=== PATIENT | female | born 1965 | race Caucasian/White ===

== ENCOUNTER 2023-05-22 07:50 | Outpatient (OUT) | payer BC, SELFPAY ==
[2023-05-22 08:38] LABS: Basophils Percent Auto 0.6 % (0.2-2.0); Eosinophils Absolute Auto 0.1 10^3/uL (0.0-0.7); Eosinophils Percent Auto 1.9 % (0.9-7.0); Immature Granulocytes Abs Auto 0.01 10^3/uL (0.00-0.03); Immature Granulocytes Pct Auto 0.1 % (0.0-0.5); Lymphocytes Absolute Auto 2.8 10^3/uL (1.2-3.8); Lymphocytes Percent Auto 40.6 % (20.5-60.0); Mean Corpuscular HGB Conc 34.2 g/dL (29.9-35.2); Mean Corpuscular Hemoglobin 30.1 pg (26.7-34.0); Mean Platelet Volume 10.3 fL (9.5-13.5); Monocytes Absolute Auto 0.5 10^3/uL (0.3-0.8); Monocytes Percent Auto 7.2 % (1.7-12.0); Neutrophils Absolute Auto 3.4 10^3/uL (1.4-6.5); Neutrophils Percent Auto 49.6 % (43.0-75.0); Platelet Count 277 10^3/uL (150-450); Red Blood Count 4.32 10^6/uL (4.20-5.40); Red Cell Distribution Width 12.8 % (11.0-15.0); White Blood Count 6.8 10^3/uL (4.0-11.0)
[2023-05-22 09:47] LABS: Estimated Average Glucose 114 mg/dL; Glycohemoglobin A1C 5.6 % (4.5-6.2)
[2023-05-22 09:48] LABS: Alanine Aminotransferase 27 U/L (14-59); Albumin Globulin Ratio 1.1; Albumin Level 3.8 g/dL (3.4-5.0); Alkaline Phosphatase 57 U/L (46-116); Anion Gap 12.3; Aspartate Amino Transferase 14 U/L (15-37); BUN Creatinine Ratio 16.1; Bilirubin Total 0.6 mg/dL (0.2-1.0); Chloride 107 mmol/L (98-107); Cholesterol 195 mg/dL (<=200); Estimated GFR (African America 54 (>=60); Estimated GFR (Non-African Ame 45 (>=60); Globulin 3.6 g/dL; Glucose 114 mg/dL (74-106); HDL Cholesterol 39 mg/dL (40-60); Potassium 4.3 mmol/L (3.5-5.1); Sodium 142 mmol/L (136-145); Total Protein 7.4 g/dL (6.4-8.2); Triglycerides 281 mg/dL (<=150); VLDL CHOLESTEROL 56.2 mg/dL
== END 2023-05-22 07:51 | disposition home or self-care (01) ==
PROVIDERS: PCP Family Medicine; Visit Provider Family Medicine
DX: E78.1 Pure hyperglyceridemia (principal); R73.9 Hyperglycemia, unspecified; Z79.899 Other long term (current) 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
CPT/HCPCS: 36415; 80053; 80061; 83036; 85025

== ENCOUNTER 2023-07-27 14:53 | Outpatient (OUT) | payer BC, SELFPAY ==
[2023-07-27 16:31] LABS: Alanine Aminotransferase 26 U/L (14-59); Albumin Globulin Ratio 1.2; Albumin Level 3.8 g/dL (3.4-5.0); Alkaline Phosphatase 62 U/L (46-116); Anion Gap 12.3; Aspartate Amino Transferase 7 U/L (15-37); BUN Creatinine Ratio 15.6; Bilirubin Total 0.4 mg/dL (0.2-1.0); Calcium 8.4 mg/dL (8.5-10.1); Carbon Dioxide 27.9 mmol/L (21.0-32.0); Chloride 106 mmol/L (98-107); Estimated GFR (African America 55 (>=60); Estimated GFR (Non-African Ame 46 (>=60); Globulin 3.3 g/dL; Glucose 81 mg/dL (74-106); Potassium 4.2 mmol/L (3.5-5.1); Sodium 142 mmol/L (136-145); Total Protein 7.1 g/dL (6.4-8.2)
== END 2023-07-27 14:54 | disposition home or self-care (01) ==
LOC: LAB 14:53
PROVIDERS: PCP Family Medicine; Visit Provider Family Medicine
DX: E78.1 Pure hyperglyceridemia (principal); N18.9 Chronic kidney disease, unspecified; Z79.899 Other long term (current) 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
CPT/HCPCS: 36415; 80053

== ENCOUNTER 2023-09-10 07:53 | Outpatient (OUT) | payer BC, SELFPAY ==
[2023-09-10 08:09] LABS: Basophils Absolute Auto 0.1 10^3/uL (0.0-0.1); Basophils Percent Auto 0.8 % (0.2-2.0); Hematocrit 37.5 % (36.0-48.0); Hemoglobin 12.6 g/dL (12.0-16.0); Immature Granulocytes Abs Auto 0.01 10^3/uL (0.00-0.03); Immature Granulocytes Pct Auto 0.1 % (0.0-0.5); Lymphocytes Absolute Auto 2.7 10^3/uL (1.2-3.8); Lymphocytes Percent Auto 36.1 % (20.5-60.0); Mean Corpuscular HGB Conc 33.6 g/dL (29.9-35.2); Mean Corpuscular Hemoglobin 30.4 pg (26.7-34.0); Mean Corpuscular Volume 90.6 fL (81.0-99.0); Mean Platelet Volume 10.5 fL (9.5-13.5); Monocytes Absolute Auto 0.5 10^3/uL (0.3-0.8); Monocytes Percent Auto 7.1 % (1.7-12.0); Neutrophils Absolute Auto 4.2 10^3/uL (1.4-6.5); Neutrophils Percent Auto 55.9 % (43.0-75.0); Platelet Count 256 10^3/uL (150-450); Red Blood Count 4.14 10^6/uL (4.20-5.40); Red Cell Distribution Width 12.9 % (11.0-15.0); White Blood Count 7.5 10^3/uL (4.0-11.0)
[2023-09-10 08:24] LABS: Alanine Aminotransferase 66 U/L (14-59); Albumin Globulin Ratio 1.2; Albumin Level 3.8 g/dL (3.4-5.0); Alkaline Phosphatase 64 U/L (46-116); Anion Gap 11.7; Aspartate Amino Transferase 38 U/L (15-37); BUN Creatinine Ratio 15.2; Bilirubin Total 0.5 mg/dL (0.2-1.0); Calcium 8.6 mg/dL (8.5-10.1); Carbon Dioxide 29.9 mmol/L (21.0-32.0); Chloride 105 mmol/L (98-107); Chol HDL Ratio 3.3; Cholesterol 144 mg/dL (<=200); Estimated GFR (African America 50 (>=60); Estimated GFR (Non-African Ame 42 (>=60); Globulin 3.3 g/dL; Glucose 100 mg/dL (74-106); HDL Cholesterol 43 mg/dL (40-60); Potassium 4.6 mmol/L (3.5-5.1); Sodium 142 mmol/L (136-145); Total Protein 7.1 g/dL (6.4-8.2); Triglycerides 185 mg/dL (<=150)
[2023-09-10 09:18] LABS: Estimated Average Glucose 117 mg/dL; Glycohemoglobin A1C 5.7 % (4.5-6.2)
== END 2023-09-10 07:54 | disposition home or self-care (01) ==
LOC: LAB 07:54
PROVIDERS: PCP Family Medicine; Visit Provider Family Medicine
DX: E78.1 Pure hyperglyceridemia (principal); Z79.899 Other long term (current) 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; R73.9 Hyperglycemia, unspecified
CPT/HCPCS: 36415; 80053; 80061; 83036; 85025

== ENCOUNTER 2023-09-18 09:33 | Outpatient (OUT) | payer BC, SELFPAY ==
--- NOTE | 2023-09-18 | US_ITS ---
The [address] [address] Patient Name: RODRIGO LIRA MRN: [id number] date: 1965 Sex: F Assigned Patient Location: US Current Patient Location: Accession/Order Number: [id number] Exam Date: 09/18/2023 10:00 Report Date: 09/18/2023 10:58 At the request of: ANAND GARCIA Procedure: US right upper quadrant EXAM: US right upper quadrant EXAM DATE: 09/18/2023 8:00 AM MST COMPARISON: None available. INDICATION: Elevated labs. Reflux. TECHNIQUE: Limited ultrasound of the right upper quadrant of abdomen was performed. Images were reviewed on a separate workstation. FINDINGS: Liver parenchyma is mildly echogenic. No focal intraparenchymal abnormality detected. Gallbladder is normally distended. No intraluminal echogenic abnormality seen. No gallbladder wall thickening or pericholecystic fluid noted. Gallbladder wall measures 2 mm. Sonographic Fowler's sign is absent. No intrahepatic or extrahepatic biliary ductal dilatation noted. CBD measures 3.6 mm. Portal vein is patent with hepatopetal flow. Pancreas is partially obscured by bowel gas; visualized pancreatic parenchyma is homogeneous. Right kidney measures 8 x 4 x 5.4 cm. No hydronephrosis or nephrolithiasis noted. No free fluid noted in the right upper abdomen. US/US right upper quadrant IMPRESSION: 1. Mild fatty infiltration of the liver. 2. No gallstones or bile duct dilation. Sonographic Fowler's sign is absent. 3. Right kidney without hydronephrosis. 4. Subvisualized pancreas. Electronically authenticated by: SHYANNE VILLASENOR Date: 09/18/2023 10:58
[2023-09-18 10:20] LABS: Alanine Aminotransferase 40 U/L (14-59); Albumin Globulin Ratio 1.1; Albumin Level 3.9 g/dL (3.4-5.0); Alkaline Phosphatase 64 U/L (46-116); Aspartate Amino Transferase 21 U/L (15-37); Bilirubin Direct 0.1 mg/dL (0.0-0.2); Bilirubin Total 0.7 mg/dL (0.2-1.0); Globulin 3.6 g/dL; Total Protein 7.5 g/dL (6.4-8.2)
[2023-09-19 08:09] LABS: HBsAg Screen Negative (Negative); HCV Ab Non Reactive (Non Reactive); Hep A Ab, IgM Negative (Negative); Hep B Core Ab, IgM Negative (Negative)
== END 2023-09-18 09:34 | disposition home or self-care (01) ==
PROVIDERS: PCP Family Medicine; Visit Provider Family Medicine
DX: R94.5 Abnormal results of liver function studies (principal)
CPT/HCPCS: 36415; 76705; 80074; 80076

== ENCOUNTER 2023-12-04 07:56 | Outpatient (OUT) | payer BC, SELFPAY ==
--- OUTSIDE RECORDS SUMMARY | 2023-12-04 08:00 | XMS_ITS | CCD ---
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 Name Role Phone Anand Garcia Unavailable Dario Green II Unavailable Marianne Plummer Unavailable DO Anand Garcia Primary Care Provider DO Anand Garcia Attending Provider Anand Garcia DO Primary Care Provider [phone] Anand Garcia DO Primary Care Provider ANAID MCCAULEY Referring Unavailable ANAND GARCIA Primary Care Unavailable ANAID MCCAULEY Attending Unavailable ANAID MCCAULEY Referring Unavailable ANAND GARCIA Primary Care Unavailable ANAID MCCAULEY Attending Unavailable CRESENCIO ROBLES Referring Unavailable AANND GARCIA Primary Care Unavailable ANAID MCCAULEY Attending Unavailable ANAND GARCIA Primary Care Unavailable RADHA, DR MICHEL Consulting Unavailable GIRYARED, DR MICHEL Primary Care Unavailable GIRYARED, DR MICHEL Admitting Unavailable GIRYARED, DR MICHEL Attending Unavailable ZIEBER, DR FELISA Drake Consulting Unavailable RADHA, DR MICHEL Primary Care Unavailable PENSIERO, DR YANNICK Bravo Attending Unava ilable PENSIERO, DR YANNICK Bravo Consulting Unava ilable PENSIERO, DR YANNICK Bravo Admitting Unava ilable PENSIERO, DR YANNICK Bravo Admitting Unava ilable PENSIERO, DR YANNICK Bravo Attending Unava ilable RADHA, DR MICHEL Primary Care Unavailable VIKA MCKAY Consulting Unavailable PENSIERO, DR YANNICK Bravo Attending Unava ilable PENSIERO, DR YANNICK Bravo Consulting Unava ilable PENSIERO, DR YANNICK Bravo Admitting Unava ilable RADHA, DR MICHEL Primary Care Unavailable AGUBOSIM, ROMULO Consulting Unavailable MARIA DEL CARMEN, ALDAIR Consulting Unavailable GIRVIN, DR MICHEL Consulting Unavailable GIRVIN, DR MICHEL Primary Care Unavailable GIRVIN, DR MICHEL Admitting Unavailable GIRVIN, DR MICHEL Attending Unavailable GIRVIN, DR MICHEL Primary Care Unavailable YEMI, MARIANNE Admitting Unavailable YEMI, MARIANNE Attending Unavailable YEMI, MARIANNE Consulting Unavailable GIRVIN, DR MICHEL Primary Care Unavailable GIRVIN, DR MICHEL Consulting Unavailable GIRVIN, DR MICHEL Admitting Unavailable GIRVIN, DR MICHEL Attending Unavailable WEST, DR ANAND Ohara Consulting Unavailable GIRVIN, DR MICHEL Primary Care Unavailable YMEI, MARIANNE Admitting Unavailable YEMI, MARIANNE Attending Unavailable YEMI, MARIANNE Consulting Unavailable GIRVIN, DR MICHEL Primary Care Unavailable GIRVIN, DR MICHEL Admitting Unavailable GIRVIN, DR MICHEL Attending Unavailable GIRVIN, DR MICHEL Consulting Unavailable GIRVIN, DR MICHEL Consulting Unavailable GIRVIN, DR MICHEL Primary Care Unavailable GIRVIN, DR MICHEL Admitting Unavailable GIRVIN, DR MICHEL Attending Unavailable DO Anand Garcia Primary Care Provider DO Anand Garcia Attending Provider Anand Garcia Attending Unavailable Radha, Anand Primary Care Unavailable Radha, Anand Admitting Unavailable Anand Garcia DO Primary Care Provider CRESENCIO ROBLES Attending Unavailable ANAND GARCIA Primary Care Unavailable CRESENCIO ROBLES Attending Unavailable ANAND GARCIA Primary Care Unavailable Allergies Allergy Classification Reported Allergen(s) Allergy Type Date of Onset Reaction(s) Facility (15 sources) NSAIDs Propensity to adverse reactions kidney Dz [employer] Other (16 sources) Sulfamethoxazole / Trimethoprim; Translations: [Bactrim] Drug Allergy 04-10-20 19 kidney Dz [facility] [place] [facility] (11 sources) topiramate; Translations: [TOPIRAMATE] Drug Allergy 05-09-20 18 Mental Status Change [facility] (1 source) NSAIDs Drug allergy (disorder) 04-10-20 19 [facility] Medications Current Medications Medication Drug Class(es) Dates Sig (Normalized) Sig (Original) acetaminophen 325 mg / HYDROcodone bitartrate 5 mg oral tablet (11 sources) Opioid Agonist Start: 09-13-2023 HYDROcodone-Acetam inophen 5-325 MG 1 tablet Orally q6-8 hrs prn Dx: M50.30 for 7 days Sep, Active Start: 12-29-2022 HYDROcodone-Ac etaminophen 5-325 MG 1 tablet Orally q6-8 hrs prn Dx: M50.30 Dec, Active Start: 08-26-2022 HYDROcodone-Ac etaminophen 5-325 MG 1 tablet Orally q6-8 hrs prn Dx: M50.30 for 7 days Aug, Active Start: 07-29-2022 HYDROcodone-Ac etaminophen 5-325 MG 1 tablet Orally q6-8 hrs prn Dx: M50.30 for 7 days Jul, Active Start: 05-21-2020 [place] 5-325 MG 1 tablet Orally q6-8 hrs as needed DX: M50.30 for 7 days May, Active baclofen 10 mg oral tablet (2 sources) gamma-Aminobutyric Acid-ergic Agonist Start: 09-28-2022 End: 10-28-2022 take 1 tablet by mouth twice daily as needed baclofen (LIORESAL) 10 mg tablet Indications: Cervicalgia , History of fusion of cervical spine , Cervical spondylosis Take 1 tablet by mouth twice daily as needed. 40 tablet 0 09/28/2022 10/28/2022 Active Comment on above: Take 1 tablet by lillie twice daily as needed. dihydroergotamine mesylate 0.725 MG/ACTUAT Metered Dose Nasal [place] [Trudhesa] (2 sources) Trudhesa 0.725 MG/ACT 1 spray in each nostril may repeat dose after 1 hour no more than 3 doses per week as needed Nasally Once a day Active Magnesium (4 sources) take 5 tablets by mouth once daily Magnesium 100 MG 5 tablets (500 MG) Orally qd Active take 1 tablet by mouth once haylee y Magnesium 500 MG 1 tablet with a meal Orally Once a day Active Multivitamin preparation (15 sources) take 1 tablet by mouth once daily Multivitamin - 1 tablet Orally Once a day Active ondansetron 4 mg oral tablet (20 sources) Serotonin-3 Receptor Antagonist Start: 5 Zofran 4 mg 1 tablet Orally q8-12 hrs prn prn Jun, Active Start: 07-01-2015 Zofran 4 mg 1 tablet Orally q8-12 hrs prn Jun, Active ONDANSETRON HCL (ZOFRAN ORAL) Take 4 mg by mouth as needed. 0 Active Comment on above: Take 4 mg by mouth a s needed. tiZANidine 4 mg oral capsule (2 sources) Central alpha-2 Adrenergic Agonist Start: 11-16-2022 End: 12-16-2022 take 1 capsule by mouth every twelve hours as needed tiZANidine HCl (ZANAFLEX) 4 mg capsule Take 1 capsule by mouth twice daily as needed. 40 capsule 0 11/16/2022 12/16/2022 Active Comment on above: Take 1 capsule by mo uth twice daily as needed. Vitamin C 1000 MG (6 sources) Vitamin C 1000 M G as directed Once a day Not-Taking Vitamin C 1000 M G as directed Once a day Active Vitamin E 400 UNIT (15 sources) take 1 capsule by mo uth once daily Vitamin E 400 UNIT 1 capsule Orally Once a day Not-Taking take 1 capsule by mouth once surendra ly Vitamin E 400 UNIT 1 capsule Orally Once a day Active Completed/Discontinued Medications Medication Drug Class(es) Dates Sig (Normalized) Sig (Original) ascorbic acid 1000 mg oral tablet (14 sources) Vitamin C take 1 tablet by lillie th once daily Ascorbic Acid 1,000 mg tablet Take 1,000 mg by mouth once daily. 0 Active Vitamin C Active Comment on above: Take 1,000 mg by lillie th once daily. CYANOCOBALAMIN, VITAMIN B-12, (VITAMIN B-12 ORAL) (9 sources) CYANOCOBALAMIN, VITAMIN B-12, (VITAMIN B-12 ORAL) Take by mouth. 0 Active Comment on above: Take by mouth. dihydroergotamine mesylate 0.5 mg/actuat metered dose nasal spray (9 sources) Ergotamine Derivative Dihydroergotamine Mesylate 4 MG/ML as directed Nasally ONLY NEEDED PRN Not-Taking dihydroergotamine (TRUDHESA) 0.725 mg/pump act. (4 mg/mL) nasal spray (2 sources) Start: 2022 dihydroergotamine (TRUDHESA) 0.725 mg/pump act. (4 mg/mL) nasal spray Prime with 4 pumps before use. 1 spray in each nostril at migraine onset. May repeat once in 1 hour if needed. No more than 2 doses/24 hours and 3 doses/week. A complete dose is 2 sprays: 1 spray in each nostril. 8 mL 07/21/2023 Active Comment on above: Prime with 4 pumps b efore use. 1 spray in each nostril at migraine onset. May repeat once in 1 hour if needed. No more than 2 doses/24 hours and 3 doses/week. A complete dose is 2 sprays: 1 spray in each nostril. 1 ml erenumab-aooe 140 mg/ml auto-injector (20 sources) Start: 2022 inject 1 mL by subcutaneous injection every month erenumab-aooe 140 mg/mL subcutaneous auto-injector (AIMOVIG) Inject 1 mL under the skin once every month. 1 mL 07/21/2023 Active Start: 07-18-2021 End: 07-24-2022 inject 140 mg by subcutaneous injection every month erenumab-aooe 140 mg/mL subcutaneous auto-injector (AIMOVIG) INJECT 140 MG SUBCUTANEOUSLY ONCE EVERY MONTH. 1 mL 07/24/2022 Active inject 1 mL by subcu taneous injection every month Aimovig 70 MG/ML 1 ml Subcutaneous ONCE A MONTH on the of every month Active Comment on above: INJECT 140 MG SUBCUT ANEOUSLY ONCE EVERY MONTH. Inject 1 mL under th e skin once every month. Imitrex 100 mcg/spray (7 sources) Imitrex 100 mcg/ spray one spray nasally at onset of headache prn Not-Taking Imitrex 100 mcg/ spray one spray nasally at onset of headache prn Active Imitrex 100 mcg/ spray one spray nasally at onset of headache Not-Taking Imitrex 100 mcg/ spray one spray nasally at onset of headache Active Magnesium Hydroxide (2 sources) take 400 mg by mouth once daily magnesium hydroxide (MAGNESIA ORAL) Take 400 mg by mouth once daily. 0 Active Comment on above: Take 400 mg by mouth once daily. 24 hr propranolol hydrochloride 80 mg extended release oral capsule (20 sources) beta-Adrenergic Nicky Start: 2 End: 3 take 1 capsule by mouth once daily propranolol ER (INDERAL LA) 80 mg 24 hr capsule Take 1 capsule by mouth once daily. 90 capsule 3 11/24/2022 Active take 1 tablet by lillie every twenty-four hours Propranolol HCl 80 MG 1 Tablet Orally Once a day Active Comment on above: Take 1 capsule by mo [facility] once daily. rizatriptan 10 mg oral tablet (20 sources) Serotonin-1b and Serotonin-1d Receptor Agonist Start: 09-23-20 20 rizatriptan (MAXALT) 10 mg tablet 1 tab at earliest sign of migraine. May repeat once in 2 hours if needed. Give max allowed per insurance. 27 tablet 3 09/23/2020 Active Comment on above: 1 tab at earliest si gn of migraine. May repeat once in 2 hours if needed. Give max allowed per insurance. rosuvastatin calcium 5 mg oral tablet (5 sources) HMG-CoA Reductase Inhibitor Start: 06-09-20 take 1 tablet by mouth once rosuvastatin (CRESTOR) 5 mg tablet Take 1 tablet by mouth every afternoon. 0 07/06/2023 Active Comment on above: Take 1 tablet by lillie every afternoon. 72 hr scopolamine 0.0139 mg/hr transdermal system (9 sources) Anticholinergic Start: 05-31-20 scopolamine (TRANSDERM-SCOP) 1.5 mg (1 mg over 3 days) Apply 1 Patch as directed every 72 hours. APPLY 1 DISC BEHIND THE EAR AT LEAST 4 HOURS PRIOR TO EXPOSURE AND EVERY 3 DAYS NEEDED. 12 Patch 11 05/31/2017 Active Comment on above: Apply 1 Patch as dir ected every 72 hours. APPLY 1 DISC BEHIND THE EAR AT LEAST 4 HOURS PRIOR TO EXPOSURE AND EVERY 3 DAYS NEEDED. SUMAtriptan 20 mg/actuat nasal spray (7 sources) Serotonin-1b and Serotonin-1d Receptor Agonist Start: 07-24-20 SUMAtriptan (IMITREX) 20 mg/actuation nasal spray 1 spray in 1 nostril at migraine onset. May repeat once in 2 hours if needed. 8 Each 07/24/2022 Active Comment on above: 1 spray in 1 nostril at migraine onset. May repeat once in 2 hours if needed. triamcinolone acetonide 40 mg/ml injectable suspension (14 sources) Corticosteroid Start: 02-07-20 Kenalog-40 Jan, 40 mg Start: 02-06-2022 Kenalog -40 mg Jan, 40 mg zinc gluconate 50 mg oral tablet (5 sources) take 1 tablet by mouth every twenty-four hours Zinc 50 MG 1 tablet Orally Once a day Not-Taking ZOLMitriptan 5 mg/actuat nasal spray (15 sources) Serotonin-1b and Serotonin-1d Receptor Agonist Start: 10-01-20 21 ZOLMitriptan (ZOMIG) 5 mg nasal spray 1 spray in 1 nostril at headache onset. May repeat once in 2 hours if needed. Give max sprays allowed per insurance. 18 Each 3 10/01/2021 Active take 2.5 mg nasal ro joseph once daily as needed Zomig 2.5 MG as directed Nasally Once a day PRN prn Not-Taking Comment on above: 1 spray in 1 nostril at headache onset. May repeat once in 2 hours if needed. Give max sprays allowed per insurance. Problems Active Problems Problem Classification Problem Date Documented Date Episodic/Chronic Acquired foot deformities (1 source) Hallux rigidus, right foot; Translations: [HALLUX RIGIDUS RIGHT FOOT] Onset: 2 Chronic Chronic kidney disease (20 sources) Chronic kidney disease; Translations: [Chronic kidney disease, unspecified] Onset: 2 Resolved: 2 Chronic Diabetes mellitus without complication (5 sources) Hyperglycemia, unspecified; Translations: [HYPERGLYCEMIA UNSPECIFIED] Onset: 2 Resolved: 2 Episodic Disorders of lipid metabolism (20 sources) Hypertriglyceridemia; Translations: [Pure hyperglyceridemia] Onset: 2 Resolved: 2 Chronic Essential hypertension (15 sources) Elevated blood pressure; Translations: [Essential (primary) hypertension] Chronic Fluid and electrolyte disorders (1 source) Hyperosmolality and hypernatremia Episodic Headache; including migraine (20 sources) Migraine; Translations: [Migraine, unspecified, not intractable, without status migrainosus] Onset: 5 Resolved: 2 Chronic Hypertension with complications and secondary hypertension (20 sources) Chronic kidney disease due to hypertension; Translations: [Hypertensive chronic kidney disease with stage 1 through stage 4 chronic kidney disease, or unspecified chronic kidney disease] Onset: 2 Resolved: 2 Chronic Nausea and vomiting (15 sources) Nausea; Translations: [Nausea] Episodic Nephritis; nephrosis; renal sclerosis (18 sources) Nephrosclerosis; 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)] Onset: 2 Resolved: 2 Chronic Osteoarthritis (15 sources) Osteoarthritis of right hip joint; Translations: [Unilateral primary osteoarthritis, right hip] Onset: 2 Resolved: 2 Chronic Other aftercare (9 sources) Other assistant terminal manager (current) 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; Translations: [OTH JAIL CURRENT DRUG THERAPY] Onset: 2 Resolved: 2 Episodic Other connective tissue disease (2 sources) History of cervical spine fusion; Translations: [Arthrodesis status] Episodic Other diseases of kidney and ureters (15 sources) Secondary hyperparathyroidism; Translations: [Secondary hyperparathyroidism of renal origin] Chronic Other diseases of kidney and ureters (3 sources) Secondary hyperparathyroidism of renal origin; Translations: [SEC HYPERPARATHYROIDISM RENAL ORIGN] Onset: 2 Resolved: 2 Chronic Other nutritional; endocrine; and metabolic disorders (11 sources) Tracy hump; 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] Chronic Other nutritional; endocrine; and metabolic disorders (2 sources) Localized adiposity; Translations: [LOCALIZED ADIPOSITY] Onset: 2 Resolved: 2 Chronic Other nutritional; endocrine; and metabolic disorders (6 sources) Hypomagnesemia; Translations: [Hypomagnesemia] Chronic Other nutritional; endocrine; and metabolic disorders (1 source) Hypomagnesemia Chronic Other nutritional; endocrine; and metabolic disorders (8 sources) Abnormal weight gain; Translations: [ABNORMAL WEIGHT GAIN] Onset: 2 Resolved: 2 Episodic Other screening for suspected conditions (not mental disorders or infectious disease) (18 sources) Screening status; Translations: [Encounter for screening for malignant neoplasm of colon] Onset: 2 Resolved: 2 Episodic Spondylosis; intervertebral disc disorders; other back problems (20 sources) Cervical spondylosis; Translations: [Spondylosis without myelopathy or radiculopathy, cervical region] Onset: 2 Resolved: 2 Chronic Unclassified (1 source) CHRN KIDNEY DISEASE STG 3 UNSP; Translations: [CHRN KIDNEY DISEASE STG 3 UNSP] Onset: 3 Unclassified (1 source) CONTACT W/AND (SUSP) EXPOS COVID-19; Translations: [CONTACT W/AND (SUSP) EXPOS COVID-19] Onset: 2 Unclassified (1 source) Encounter for screening mammogram for malignant neoplasm of breast; Translations: [Encounter for screening mammogram for malignant neoplasm of breast] Onset: 3 Past or Other Problems Problem Classification Problem Date Documented Date Episodic/Chronic Acquired foot deformities (4 sources) Other deformities of toe(s) (acquired), right foot; Translations: [OTHER DEFORMITIES TOES ACQ RT FOOT] Onset: 01-28-2022 Episodic Chronic kidney disease (4 sources) Chronic kidney disease; Translations: [Chronic kidney disease, stage 3 unspecified] Onset: 02-12-2022 Resolved: 02-12-2022 Deficiency and other anemia (1 source) Anemia, unspecified Onset: 05-25-2022 Resolved: 05-25-2022 Episodic Headache; including migraine (18 sources) Chronic daily headache; Translations: [Chronic daily headache] Onset: 10-11-2015 10-11-2015 Episodic Other bone disease and musculoskeletal deformities (1 source) Disorder of bone, unspecified; Translations: [DISORDER OF BONE UNSPECIFIED] Onset: 02-05-2022 Episodic Other connective tissue disease (1 source) Pain in right foot Onset: 01-19-2022 Resolved: 01-19-2022 Episodic Other connective tissue disease (1 source) Trochanteric bursitis, right hip Onset: 02-06-2022 Resolved: 02-06-2022 Episodic Other connective tissue disease (9 sources) Chronic musculoskeletal pain; Translations: [Myalgia, other site] Onset: 07-03-2016 07-03-2016 Episodic Other connective tissue disease (2 sources) Arthrodesis status; Translations: [History of fusion of cervical spine] Onset: 02-05-2022 Episodic Other non-traumatic joint disorders (1 source) Pain in unspecified hip Onset: 01-19-2022 Resolved: 01-19-2022 Episodic Other non-traumatic joint disorders (5 sources) Pain in right hip; Translations: [PAIN IN RIGHT HIP] Onset: 01-20-2022 Resolved: 02-06-2022 Episodic Other non-traumatic joint disorders (1 source) Osteophyte, right foot; Translations: [OSTEOPHYTE RIGHT FOOT] Onset: 01-19-2022 Episodic Other skin disorders (1 source) Corns and callosities; Translations: [CORNS AND CALLOSITIES] Onset: 02-05-2022 Episodic Residual codes; unclassified (1 source) Acquired absence of both cervix and uterus; Translations: [ACQUIRED ABSENCE BOTH CERVIX AND UTERUS] Onset: 02-05-2022 Episodic Spondylosis; intervertebral disc disorders; other back problems (20 sources) Cervico-occipital neuralgia; Translations: [Occipital neuralgia] Onset: 10-11-2015 Episodic Results Test Name Value Interpretation Reference Range Facility [facility] 11-26-2023 [facility] Office Visit ([facility]) MYRTLE JONES ([id number]) 1965 F Date Time Provider Department 11/26/23 2:30 PM CRESENCIO ROBLES AKELAYNE During your visit today, we recorded the following information about you: Pulse Blood pressure Weight 65/minute 147/99 80.3 kg Cresencio Robles DO 11/26/2023 3:28 PM Signed [facility] - Follow-up Visit ASSESSMENT: 58 year old female with history significant for HTN, migraine with aura, migraine without aura, chronic neck pain s/p fusion x 2, chronic musculoskeletal pain, and chronic daily headache consistent with chronic migraine with additional cervical musculoskeletal and occipital neuralgia contributors at initial visits. She improved significantly on Aimovig going from 25+ days/month of headache down to about 3 milder migraines/month with less severity. However, since August migraines have evolved back to chronic migraine and Aimovig seems to have worn off. She has been having another migrainous flares since yesterday. PLAN: (Please see typed patient instructions for detailed instructions) ---> Acute Treatment: -Toradol shot today for current flare. -Ubrelvy trial. We will request a precertification for a Calcitonin Gene-Related Peptide Receptor Antagonist (GEPANT) Ubrogepant for the rescue treatment of episodic migraine. This patient meets ICHD-3 criteria for treatment of migraine with a small molecule CGRP antagonist GEPANT. The FDA has approved GEPANTS for the treatment of migraine. Specifically, the patient has 14 headaches per month, lasting 4 or more hours/day associated with photophobia, phonophobia, nausea, vomiting for three or more months. Medication overuse headache has been ruled out.Patient will not use with another GEPANT. The patient has tried and failed the following : The following preventative medications have been tried without benefit: Anti-Convulsant Topiramate (Topamax, Trokendi XL, Qudexy) Anti-Depressant and Antipsychotic Amitriptyline (Elavil) Duloxetine (Cymbalta) Nortriptyline (Pamelor, Aventyl) Blood Pressure Propranolol (Inderal) Timolol MABs Erenumab (Aimovig) Botulinum Toxin Onabotulimum Toxin A (Botox) The following abortive medications have been tried but require high frequency use which can lead to Medication Overuse Headache: Analgesic Butalbital/acetaminoph en/caffeine (Fioricet) Hydrocodone/Acetaminop hen (Vicodin, [place]) Anti-Migraine Dihydroergotamine (DHE-45, Migranal) Rizatriptan (Maxalt) Sumatriptan (Imitrex, Sumavel) Zolmitriptan (Zomig) Over the Counter Medications Acetaminophen (Tylenol) Acetaminophen/Aspirin/ Caffeine (Excedrin, Goody?s) Ibuprofen (Advil, Motrin) ---> Preventive Treatment: -Change Aimovig to Qulipta trial. Also discussed other CGRP mAbs alternatives. -Continue Propranolol 80 mg ER daily (BP and migraines). ---> Follow-up: 4 months. We will request a precertification for a Calcitonin Gene-Related Peptide Receptor Antagonist (GEPANT) Atogepant for the prevention of chronic migraine . This patient meets ICHD-3 criteria for treatment of migraine with a small molecule CGRP antagonist GEPANT. The FDA has approved GEPANTS for the treatment of migraine. Specifically, the patient has 25 headaches per month, lasting 4 or more hours/day associated with photophobia, phonophobia, nausea, vomiting for three or more months. Medication overuse headache has been ruled out. Patient will not use with another GEPANT. The patient has tried and failed the following : The following preventative medications have been tried without benefit: Anti-Convulsant Topiramate (Topamax, Trokendi XL, Qudexy) Anti-Depressant and Antipsychotic Amitriptyline (Elavil) Duloxetine (Cymbalta) Nortriptyline (Pamelor, Aventyl) Blood Pressure Propranolol (Inderal) Timolol MABs Erenumab (Aimovig) Botulinum Toxin Onabotulimum Toxin A (Botox) The following abortive medications have been tried but require high frequency use which can lead to Medication Overuse Headache: Analgesic Butalbital/acetaminoph en/caffeine (Fioricet) Hydrocodone/Acetaminop hen ([place]in, [place]) Anti-Migraine Dihydroergotamine (DHE-45, Migranal) Rizatriptan (Maxalt) Sumatriptan (Imitrex, Sumavel) Zolmitriptan (Zomig) Over the Counter Medications Acetaminophen (Tylenol) Acetaminophen/Aspirin/ Caffeine (Excedrin, Goody?s) Ibuprofen (Advil, Motrin) --------- Last visit: 07/21/23 Interval Headache Hx: Was doing well with 3-4 per month. However, since August migraines and headaches have been worse and most days. New Labs/Imaging: n/a HEADACHE SCORES: Headache Questions 07/17/2022 07/14/2023 11/22/2023 ER visits since last office visit: 0 0 0 Hospital stays since last office visit 0 0 0 Limited ADLs in the (more content not included)... [facility] ([facility]) SORAYAMYRTLE ([id number]) 1965 F Date Time Provider Department 10/13/23 SALMA CALLEJAS [facility] During your visit today, we recorded the following information about you: Salma Callejas RN 10/13/2023 1:37 PM Signed [facility] received prescription(s) for Aimovig 140MG/ML auto-injectors. Benefits investigation was conducted, indicating that a prior authorization is required. PA was initiated and pending review through [employer]. All pertinent clinical information was submitted to insurance. CMM Palafox: [id number] Ordering Provider: Cresencio Robles DO Murtaugh, Alisha, AGUSTO [facility] P: , F: Salma Callejas RN 10/20/2023 1:25 PM Signed Ambulatory Pharmacy Prior Authorization Note Provider Intervention Required?: No- Pharmacy completed on your behalf. Rx Plan: Other: bcbs Drug: Aimovig 140MG/ML auto-injectors Cover My Meds Palafox: [id number] Determination: Approved Prior Authorization/Case #: [id number] Prior Authorization Expiration: 10/16/2024 Time to PA Submission in CMM: 15 min Time to PA Determination in CMM: Same day Additional Information: PLEASE NOTE: Pt will need follow up office visit to review/document efficacy and tolerability of treatment before prior auth expiration. Please ensure a future follow up appt is scheduled with your patient. This will ensure no interruption in patient's ability to obtain medication refills. Prescriptions will now be processed through [facility] for determination of next steps. For questions relating to this submission, please contact [facility] at [phone] Allergies As of Date: 10/13/2023 Noted Allergy Reaction TOPAMAX (TOPIRAMATE) 05/09/2018 1 - Mental Status Change Date Reviewed: 07/21/2023 Reviewed by: Betsy Bang Ma - Fully Assessed Reason for Visit: Insurance Authorization [[id number]] Cmt: Aimovig 140MG/ML auto-injectors Prescriptions as of 10/20/2023 - rosuvastatin (CRESTOR) 5 mg tablet Take 1 tablet by mouth every afternoon. - magnesium hydroxide (MAGNESIA ORAL) Take 400 mg by mouth once daily. - erenumab-aooe 140 mg/mL subcutaneous auto-injector (AIMOVIG) Inject 1 mL under the skin once every month. - dihydroergotamine (TRUDHESA) 0.725 mg/pump act. (4 mg/mL) nasal spray Prime with 4 pumps before use. 1 spray in each nostril at migraine onset. May repeat once in 1 hour if needed. No more than 2 doses/24 hours and 3 doses/week. A complete dose is 2 sprays: 1 spray in each nostril. - propranolol ER (INDERAL LA) 80 mg 24 hr capsule Take 1 capsule by mouth once daily. - scopolamine (TRANSDERM-SCOP) 1.5 mg (1 mg over 3 days) Apply 1 Patch as directed every 72 hours. APPLY 1 DISC BEHIND THE EAR AT LEAST 4 HOURS PRIOR TO EXPOSURE AND EVERY 3 DAYS NEEDED. - Ascorbic Acid 1,000 mg tablet Take 1,000 mg by mouth once daily. - ONDANSETRON HCL (ZOFRAN ORAL) Take 4 mg by mouth as needed. - CYANOCOBALAMIN, VITAMIN B-12, (VITAMIN B-12 ORAL) Take by mouth. Problem List As Of Date 10/13/2023 Noted Resolved Chronic daily headache [R51.9] 10/11/2015 Chronic migraine without aura, with intractable*10/11/2015 Medication overuse headache [G44.40] 10/11/2015 Chronic neck pain [M54.2, G89.29] 10/11/2015 Bilateral occipital neuralgia [M54.81] 10/11/2015 Chronic musculoskeletal pain [M79.18, G89.29] 07/03/2016 Intractable chronic migraine without aura and w*12/27/2019 Migraine without aura and without status migrai*09/23/2020 Migraine with aura and without status migrainos*09/23/2020 Intractable chronic migraine without aura and w*09/23/2020 Cervicalgia [M54.2] 07/24/2022 Encounter Status:Closed by SALMA CALLEJAS on 10/20/23 [facility] CNPNon 09-09-2023 CNPN Telephone ([facility]MNS2) MYRTLE JONES ([id number]) 1965 F Date Time Provider Department 09/09/23 CRESENCIO ROBLES [facility]2 During your visit today, we recorded the following information about you: Katia Alexander 09/09/2023 2:38 PM Signed Completed over CMM: MYRTLE JONES Palafox: [id number] - [place] [id number] Drug Trudhesa 0.725MG/ACT aerosol Form [facility] Commercial Electronic PA Form (2016 [facility]) Approvedtoday Your request was approved based on the initial information provided at the time of the coverage request submission. Please allow additional time for the final decision to be made and added to the patient's account. Aylin Flores 09/10/2023 9:53 AM Signed Rec'd approval via fax. Effective 09/09/2023-09/09/2024 Auth #: Approval scanned to chart via OnBase Patient informed via [employer]. Allergies As of Date: 09/09/2023 Noted Allergy Reaction TOPAMAX (TOPIRAMATE) 05/09/2018 1 - Mental Status Change Date Reviewed: 07/21/2023 Reviewed by: Betsy Bang Ma - Fully Assessed Reason for Visit: Insurance Authorization [[id number]] Cmt: TRUDHESA Prescriptions as of 09/10/2023 - rosuvastatin (CRESTOR) 5 mg tablet Take 1 tablet by mouth every afternoon. - magnesium hydroxide (MAGNESIA ORAL) Take 400 mg by mouth once daily. - erenumab-aooe 140 mg/mL subcutaneous auto-injector (AIMOVIG) Inject 1 mL under the skin once every month. - dihydroergotamine (TRUDHESA) 0.725 mg/pump act. (4 mg/mL) nasal spray Prime with 4 pumps before use. 1 spray in each nostril at migraine onset. May repeat once in 1 hour if needed. No more than 2 doses/24 hours and 3 doses/week. A complete dose is 2 sprays: 1 spray in each nostril. - propranolol ER (INDERAL LA) 80 mg 24 hr capsule Take 1 capsule by mouth once daily. - scopolamine (TRANSDERM-SCOP) 1.5 mg (1 mg over 3 days) Apply 1 Patch as directed every 72 hours. APPLY 1 DISC BEHIND THE EAR AT LEAST 4 HOURS PRIOR TO EXPOSURE AND EVERY 3 DAYS NEEDED. - Ascorbic Acid 1,000 mg tablet Take 1,000 mg by mouth once daily. - ONDANSETRON HCL (ZOFRAN ORAL) Take 4 mg by mouth as needed. - CYANOCOBALAMIN, VITAMIN B-12, (VITAMIN B-12 ORAL) Take by mouth. Problem List As Of Date 09/09/2023 Noted Resolved Chronic daily headache [R51.9] 10/11/2015 Chronic migraine without aura, with intractable*10/11/2015 Medication overuse headache [G44.40] 10/11/2015 Chronic neck pain [M54.2, G89.29] 10/11/2015 Bilateral occipital neuralgia [M54.81] 10/11/2015 Chronic musculoskeletal pain [M79.18, G89.29] 07/03/2016 Intractable chronic migraine without aura and w*12/27/2019 Migraine without aura and without status migrai*09/23/2020 Migraine with aura and without status migrainos*09/23/2020 Intractable chronic migraine without aura and w*09/23/2020 Cervicalgia [M54.2] 07/24/2022 Encounter Status:Closed by KATIA ALEXANDER on 09/09/23 [facility] MM screening mammo BI w/CADo n 07-29-2023 MM screening mammo BI w/CAD [facility] [place] [address] Mammography Report Signed Patient: Myrtle Jones MR#: [id number] : 1965 Acct:[id number] Age/Sex: 58 / F ADM Date: 07/29/23 Loc: ID Room: Type: [facility] Attending Dr: Anand Garcia DO Copies to: Anand Garcia DO Ordering Provider: Anand Garcia DO Date of Service: 07/29/23 MM/MM screening mammo BI w/CAD: SCREENING BILATERAL Screening Full Field digital mammogram with 3-D imaging. Full field digital CC and MLO imaging performed. CAD utilized. COMPARISON: 06/02/2022 HISTORY: Annual screening BREAST COMPOSITION: Scattered fibroglandular densities of the breast parenchyma identified BENIGN BREAST CALCIFICATIONS: Present VASCULAR CALCIFICATIONS: None DEVELOPING ARCHITECTURAL DISTORTION: None DEVELOPING BREAST NODULE: No developing breast nodule. Similar benign nodularity of breast parenchyma. DEVELOPING MALIGNANT CALCIFICATIONS: None AXILLARY LYMPH NODES: Normal POSTSURGICAL CHANGES: None MM/MM screening mammo BI w/CAD IMPRESSION: No mammographic evidence of malignancy. Routine follow-up recommended in one year. RESULT CODE: 2 Benign Findings(s) DENSITY CODE: 2 (approximately 25-50% glandular) FOLLOW UP: 1YR THE FALSE-NEGATIVE RATE OF MAMMOGRAPHY IS APPROXIMATELY 10%. IMAGING OF A PALPABLE ABNORMALITY MUST BE BASED ON CLINICAL GROUNDS. PATIENT WAS ENTERED INTO A REMINDER SYSTEM WITH A TARGET DUE DATE FOR THE NEXT MAMMOGRAM. Impression dictated by: Seth Monroe M.D.07/29/2023 3:41 PM Dictation Location: [facility] Transcribed By: [facility] 07/29/23 154 Dictated By: Seth Monroe DO 07/29/23 1540 Signed By: 07/29/23 154 [facility] CNOVivan 07-21-2023 CNOV Office Visit ([facility]) MYRTLE JONES ([id number]) 1965 F Date Time Provider Department 07/21/23 8:30 AM CRESENCIO ROBLES [facility] During your visit today, we recorded the following information about you: Pulse Blood pressure Weight 59/minute 154/89 82.6 kg Cresencio Robles, DO 07/21/2023 8:59 AM Signed [facility] - Follow-up Visit ASSESSMENT: 58 year old female with history significant for HTN, migraine with aura, migraine without aura, chronic neck pain s/p fusion x 2, chronic musculoskeletal pain, and chronic daily headache consistent with chronic migraine with additional cervical musculoskeletal and occipital neuralgia contributors. She is doing significantly better on Aimovig going from 25+ days/month of headache down to about 3 milder migraines/month with less severity. PLAN: (Please see typed patient instructions for detailed instructions) ---> Acute Treatment: -Trudhesa DHE ns since most migraines are waking and triptans aren't as effective for her now. Also discussed gepants as a next consideration as well. Discussed no triptan use within 24 hours if she has some left over. ---> Preventive Treatment: -Aimovig 140 mg per month. -Propranolol 80 mg ER daily (BP and migraines). Myrtle Jones has been previously approved for Calcitonin Gene Related Peptide Monoclonal Antibody (CGRP MAB) (Erenumab). The patient has demonstrated the following: Patient reduction in overall migraine days: Yes Patient reduction in moderate-severe migraine days: Yes Individual has obtained clinical benefit deemed significant by individual or prescriber: Yes Patient's quality of life and ability to perform ADLs has improved: Yes We suggest the patient continue treatment with CGRP MAB Erenumab. The following preventative medications have been tried for three or more months without benefit: Anti-Convulsant Topiramate (Topamax, Trokendi XL, Qudexy) Anti-Depressant and Antipsychotic Amitriptyline (Elavil) Duloxetine (Cymbalta) Nortriptyline (Pamelor, Aventyl) Blood Pressure Propranolol (Inderal) Timolol MABs Erenumab (Aimovig) Galcanezumab (Emgality) Botulinum Toxin Onabotulimum Toxin A (Botox) The following abortive medications have been tried but require high frequency use which can lead to Medication Overuse Headache: Analgesic Butalbital/acetaminoph en/caffeine (Fioricet) Hydrocodone/Acetaminop hen (Vicodin, [place]) Anti-Migraine Dihydroergotamine (DHE-45, Migranal) Rizatriptan (Maxalt) Sumatriptan (Imitrex, Sumavel) Zolmitriptan (Zomig) Over the Counter Medications Acetaminophen (Tylenol) Acetaminophen/Aspirin/ Caffeine (Excedrin, Goody?s) Ibuprofen (Advil, Motrin) ---> Follow-up: 12 months. --------- Last visit: 07/24/22 Interval Headache Hx: 3-4 overall headache days per month which includes 3-4 migraine days per month. Uses Excedrin migraine, sometimes helps. Triptans not very helpful any more. New Labs/Imaging: n/a HEADACHE SCORES: Headache Questions 07/12/2021 07/17/2022 07/14/2023 ER visits since last office visit: 0 0 0 Hospital stays since last office visit 0 0 0 Limited ADLs in the last month: 7 5 9 Days missed from work or school in the last month: 1 0 0 Days headache pain free in the last month: 23 18 10 Days per month with ALL of the following symptoms - decreased productivity, light sensitivity and nausea: 5 5 9 Initial improvement of headache after botox injection at last visit: Not applicable, I did not have a botox injection at my last visit Not applicable, I did not have a botox injection at my last visit Not applicable, I did not have a botox injection at my last visit PRN medication usage in the last month: 7 7 15 Patient impression of improvement since last visit: Much improved Much improved Minimally worse HIT-6 07/12/2021 07/17/2022 07/14/2023 HIT-6 - - - HIT-6 61 (Severe impact) 56 (Substantial impact) 64 (Severe impact) GIL - 2/7 SCORES 07/12/2021 07/17/2022 07/14/2023 GIL-2 Score 2 2 0 GIL-7 Score - - - Migraine Specific QOL - Higher scores indicate better HRQL 09/17/2020 07/17/2022 07/14/2023 Role Function-Restrictive Transformed Score (range: 0-100) 0 80 62.86 Role Function-Preventive Transformed Score (range: 0-100) 0 80 70 Emotional Function Transformed Score (range: 0-100) 13.33 80 93.33 PHQ-9 09/21/2022 11/09/2022 07/14/2023 Score 8 10 6 MEDS: Current Outpatient Medications Medication Sig propranolol ER (INDERAL LA) 80 mg 24 hr capsule Take 1 capsule by mouth once daily. erenumab-aooe 140 mg/mL subcutaneous auto-injector (AIMOVIG) INJECT 140 MG SUBCUTANEOUSLY ONCE EVERY MONTH. ZAZUETA (more content not included)... Normal [facility] PTH INTACTon 01-04-2023 PTH, Intact 27 pg/mL Normal 15-65 [facility] Comment on above: Performed By: #### P THINT #### [facility] Laboratory [address] [place] [address] Dr. Angus Hernandez HEMOGLOBIN AND HEMATOCRITon 01-02-2023 Hematocrit (Bld) [Volume fraction] 37.2 % Normal 36.0-48.0 [facility] Comment on above: Performed By: #### H GBHCT #### [facility] [address] [place] [address] Dr. Angus Hernandez Hemoglobin (Bld) [Mass/Vol] 12.9 g/dL Normal 12.0-16.0 [facility] Comment on above: Performed By: #### H GBHCT #### [facility] [address] [place] [address] Dr. Angus Hernandez HEMOGRAM AND PLATELon 2022 Hematocrit (Bld) [Volume fraction] 37.2 % Normal 36.0-48.0 [facility] Comment on above: Performed By: #### P THINT #### [facility] [address] [place] [address] Dr. Angus Hernandez Hemoglobin (Bld) [Mass/Vol] 12.9 g/dL Normal 12.0-16.0 [facility] Comment on above: Performed By: #### P THINT #### [facility] [address] [place] [address] Dr. Angus Hernandez MCH (RBC) [Entitic mass] 29.6 pg Normal 26.7-34.0 [facility] Comment on above: Performed By: #### P THINT #### [facility] [address] [place] [address] Dr. Angus Hernandez MCHC (RBC) [Mass/Vol] 32.2 g/dL Normal 29.9-35.2 [facility] Comment on above: Performed By: #### P THINT #### [facility] [address] [place] [address] Dr. Angus Hernandez MCV (RBC) [Entitic vol] 91.7 fL Normal 81.0-99.0 [facility] Comment on above: Performed By: #### P THINT #### [facility] [address] [place] [address] Dr. Angus Hernandez PLT 294 103/ul Normal 150-450 [facility] Comment on above: Performed By: #### P THINT #### [facility] [address] [address] [address] Angus Hernandez RBC 4.33 106/ul Normal 4.20-5.40 [facility] Comment on above: Performed By: #### P THINT #### [facility] [address] [place] [address] Dr. Angus Hernandez WBC 6.8 103/ul Normal 4.0-11.0 [facility] Comment on above: Performed By: #### P THINT #### [facility] [address] [place] [address] Dr. Angus Hernandez MAGNESIUMon 01-02-2023 Magnesium [Mass/Vol] 1.6 mg/dL Critically low 1.8-2.4 [facility] Comment on above: Performed By: #### H H #### [facility] [address] [place] [address] Dr. Angus Hernandez RENAL FUNCTION PANELon 01-02 Albumin [Mass/Vol] 3.9 g/dL Normal 3.4-5.0 [facility] Comment on above: Performed By: #### H H #### [facility] [address] [place] [address] Dr. Angus Hernandez Calcium [Mass/Vol] 8.9 mg/dL Normal 8.5-10.1 [facility] Comment on above: Performed By: #### H H #### [facility] [address] [place] [address] Dr. Angus Hernandez Chloride [Moles/Vol] 110 mmol/L Critically high 98-107 [facility] Comment on above: Performed By: #### H H #### [facility] [address] [place] [address] Dr. Angus Hernandez CO2 [Moles/Vol] 24.1 mmol/L Normal 21.0-32.0 The [facility] Comment on above: Performed By: #### H H #### [facility] [address] [place] [address] Dr. Angus Hernandez Creatinine [Mass/Vol] 1.16 mg/dL Critically high 0.55-1.02 [facility] Comment on above: Performed By: #### H H #### [facility] [address] [address] [address] Angus Hernandez EGFR-AF SAO TOMEAN 59 mL/min/1.73m2 Critically low >=60 [facility] Comment on above: Performed By: #### H H #### [facility] [address] [address] [address] Angus Hernandez EGFR-NON AF SAO TOMEAN 49 mL/min/1.73m2 Critically low >=60 [facility] Comment on above: Performed By: #### H H #### [facility] [address] [address] [address] Angus Hernandez Glucose [Mass/Vol] 108 mg/dL Critically high 74-106 [facility] Comment on above: Performed By: #### H H #### [facility] [address] [address] [address] Angus Hernandez Phosphate [Mass/Vol] 3.4 mg/dL Normal 2.6-4.7 [facility] Comment on above: Performed By: #### H H #### [facility] [address] [address] [address] Angus Hernandez Potassium [Moles/Vol] 4.4 mmol/L Normal 3.5-5.1 [facility] Comment on above: Performed By: #### H H #### [facility] [address] [address] [address] Angus Hernandez Sodium [Moles/Vol] 146 mmol/L Critically high 136-145 [facility] Comment on above: Performed By: #### H H #### [facility] [address] [address] [address] Angus Hernandez Urea nitrogen [Mass/Vol] 17.0 mg/dL Normal 7.0-18.0 [facility] Comment on above: Performed By: #### H H #### [facility] [address] [address] [address] Angus Hernandez UA RANDOM W/MICROSCOPICon BACTERIA NONE SEEN Normal NONE SEEN [facility] Comment on above: Performed By: #### U AMIC #### [facility] [address] [address] [address] Angus Hernandez Bilirubin Ql (U) Negative Normal NEGATIVE [facility] Comment on above: Performed By: #### U AMIC #### [facility] [address] [address] [address] Angus Hernandez CAST NONE SEEN Normal NONE SEEN [facility] Comment on above: Performed By: #### U AMIC #### [facility] [address] [address] [address] Angus Hernandez Clarity (U) CLEAR Normal CLEAR [facility] Comment on above: Performed By: #### U AMIC #### [facility] [address] [address] [address] Angus Hernandez Color (U) LT. YELLOW Normal YELLOW [facility] Comment on above: Performed By: #### U AMIC #### [facility] [address] [address] [address] Angus Hernandez Crystals LM Nom (Urine sed) NONE SEEN Normal NONE SEEN [facility] Comment on above: Performed By: #### U AMIC #### [facility] [address] [address] [address] Angus Hernandez Epithelial cells LM Ql (Urine sed) FEW Abnormal NONE SEEN /RARE [facility] Comment on above: Performed By: #### U AMIC #### [facility] [address] [address] [address] Angus Hernandez Glucose Ql (U) Negative Normal NEGATIVE [facility] Comment on above: Performed By: #### U AMIC #### [facility] [address] [address] [address] Angus Hernandez Hemoglobin Ql (U) Negative Normal NEGATIVE [facility] Comment on above: Performed By: #### U AMIC #### [facility] [address] [address] [address] Angus Hernandez Ketones Ql (U) Negative Normal NEGATIVE [facility] Comment on above: Performed By: #### U AMIC #### [facility] [address] [address] [address] Angus Hernandez LEUKOCYTES Negative Normal NEGATIVE [facility] Comment on above: Performed By: #### U AMIC #### [facility] [address] [address] [address] Angus Hernandez MUCOUS MODERATE Abnormal NONE SEEN [facility] Comment on above: Performed By: #### U AMIC #### [facility] [address] [place] [address] Dr. Angus Hernandez Nitrite Ql (U) Negative Normal NEGATIVE [facility] Comment on above: Performed By: #### U AMIC #### [facility] [address] [place] [address] Dr. Angus Hernandez pH (U) 5.5 [pH] Normal 5-9 [facility] Comment on above: Performed By: #### U AMIC #### [facility] [address] [place] [address] Dr. Angus Hernandez RBC NONE SEEN Abnormal 0-2 [facility] Comment on above: Performed By: #### U AMIC #### [facility] [address] [place] [address] Dr. Angus Hernandez SPEC GRAVITY 1.025 Normal 1.005-<=1.[address] [facility] Comment on above: Performed By: #### U AMIC #### [facility] [address] [place] [address] Dr. Angus Hernandez UA PROTEIN Negative Normal NEGATIVE/ TRACE [facility] Comment on above: Performed By: #### U AMIC #### [facility] [address] [place] [address] Dr. Angus Hernandez Urobilinogen Qn (U) 0.2 {Tara'U}/dL Normal 0.2 - 1. 0 [facility] Comment on above: Performed By: #### U AMIC #### [facility] [address] [place] [address] Dr. Angus Hernandez WBC NONE SEEN Normal NONE SEEN [facility] Comment on above: Performed By: #### U AMIC #### [facility] [address] [place] [address] Dr. Angus Hernandez URIC ACID SERUMon 01-02-2023 Urate [Mass/Vol] 4.7 mg/dL Normal 2.6-6.0 [facility] Comment on above: Performed By: #### H H #### [facility] [address] [address] [address] Angus Hernandez URINE T PROTEIN CREAT RATIOo n 01-02-2023 Protein (U) [Mass/Vol] 10.4 mg/dL Normal <=12.0 [facility] Comment on above: Performed By: #### H GBHCT #### [facility] [facility] [address] [address] [address] Angus Hernandez UR PROT CREAT RAT 0.08 Normal [facility] Comment on above: Performed By: #### H GBHCT #### [facility] [address] [place] [address] Dr. Angus Hernandez URINE CREAT 131.12 mg/dL Normal 20.00-300.00 [facility] Comment on above: Performed By: #### H GBHCT #### [facility] [address] [place] [address] Dr. Angus Hernandez VITAMIN D 25 OHon 01-02-2023 VIT D 25-OH 115.2 ng/mL Normal [facility] Comment on above: Performed By: #### H GBHCT #### [facility] [address] [place] [address] Dr. Angus Hernandez VIT D RANGES SEE BELOW Normal [facility] Comment on above: Result Comment: <20 ng/mL Vit D deficient 20 - <30 ng/mL Vit D insufficient 30 - 100 ng/mL Vit D sufficient >100 ng/mL Potential Toxicity Performed By: #### H GBHCT #### [facility] [address] [place] [address] Dr. Angus Hernandez ALLIED HEALTHon 11-16-2022 ALLIED HEALTH HNO ID: [id number] Author: Rashmi Modi, manager file Service: Radiology Author Type: Auditing Clerk Type: Allied Health Filed: 11/16/2022 10:59 AM Note Text: Radiology Service Progress Note PATIENT NAME: Myrtle Jones DATE OF SERVICE: November 16, 2022 TIME: 10:58 AM PATIENT IDENTITY VERIFICATION COMPLETED USING TWO (2) IDENTIFIERS: Name and Date of confirmed by patient verbally. FALL SCREENING: Has the patient had 2 falls in the last year or 1 fall with injury or currently using an Ambulatory Assistive Device (Walker, Cane, Wheelchair, Crutches, etc.)? No PATIENT GENDER DATA: Female. status: : No status: NO. PATIENT RELEVANT IMPLANT DATA REVIEWED: Yes RADIOLOGY DEPARTMENT: MR; Exam(s) Completed: Spine: Cervical spine PERIPHERAL IV DATA: Not applicable SIGNED BY: Rashmi Modi, manager file November 16, 2022 10:58 AM Normal [facility] CNOVon 11-16-2022 CNOV Office Visit (SPMEFV ) YMRTLE JONES ([id number]) 1965 F Date Time Provider Department 11/16/22 1:20 PM [facility] During your visit today, we recorded the following information about you: Pulse Blood pressure Weight Height 76/minute 147/89 78.5 kg 1.702 m Anaid Mccauley APRN.STRATEGY ASSOCIATE 11/16/2022 1:30 PM Signed [facility] Neck Pain - Chronic (> 12 weeks) Initial Exam SUBJECTIVE HISTORY OF PRESENT ILLNESS: Myrtle Jones is a 57 year old female who presents with a chief complaint of neck and arm pain and is seen in consultation requested by Dr. Cresencio Robles for an opinion regarding neck pain. My final recommendations will be communicated back to the requesting physician by way of shared medical record or letter via US mail. Patient presents with neck pain worse in the last 4 mths. Denies accident/injury Pain localized to lower Cspine Pain described as aching Radiation: aching in forearms- no clear radicular symptoms Numbness/Tingling: none consistent Pain worse with activity Pain improved with nothing Interventions: topicals, ice Medications: tylenol prn, Previously on: elavil, cymbalta, nortriptyline, topomax, vicodin Physical Therapy: Online through [email or web address]. Started in April 2022- current Treating Physicians: Dr Baron Lynn Neuro History of Spine Injections/Surgery: Cervical fusion C6-7 2001 and C5-[address] Pranay Melgoza No injections Hx: migraines, occipital neuralgia, HTN, CKD CC: Neck pain Patient follows up for her neck pain. Is here for MRI review and POC. Reports ongoing neck pain Localized to lower cervical spine. Also gets upper neck pain into migraines No radicular symptoms. Physical therapy 09/07/22- current . 1-2 times per week. PT making her migraines worse. Meds: baclofen prn Other Issues Addressed at the Visit Today: None. Precipitating Event: None PAIN EVALUATION 11/12/2022 1923 11/16/2022 1253 Pain Level: 7 3 Pain Location: Neck Neck-Posterior shoulders Description: Radiating;Sore;Stiffne ss -- Duration Amount of Time: -- 9 Duration Units: Months Months Frequency: Continuous Intermittent Intervention/Comfort measure: Medication;Relaxation; Cold -- Litigation: No Workers' Compensation: No YELLOW AND BLUE FLAGS No-Neg Attitude; Back Pain is Disabling No-Avoiding Activity (for Fear of Pain) No-Depression or Anxiety Disorders No-Social Problems No-Substance Use Disorder No-Job Dissatisfaction No-Financial Disincentives Patient Entered Questionnaires Spine Questions 07/24/2022 09/21/2022 11/09/2022 Pain Location: Upper back/torso Neck Upper back/torso Pain Duration: 3-6 months - - Pain over last 6 months: Every day or nearly every day in the past 6 months - - Symptoms from neck/cervical spine: Yes Yes Yes Employment Status: Working now - Working now Involved in law suit/legal claim: No - - Spine Red Flags 07/24/2022 11/09/2022 Any type of cancer: No No Unexplained fever: No No Bowel or bladder disfunction: No No Unintentional weight loss: No No Osteoporosis: No No Neck Questionnaires 07/24/2022 09/21/2022 11/09/2022 Benzel Modified MARINE Score 18 (A lower score indicates increased pain and issues.) 18 (A lower score indicates increased pain and issues.) 17 (A lower score indicates increased pain and issues.) PROMIS Score Percentiles Physical Health 07/24/2022 09/21/2022 11/09/2022 Physical Function Percentile 12 18* 16* Sleep Percentile 10 27* 27* Fatigue Percentile 8 12 24* Pain Interference Percentile 8 4 4 PROMIS SOCIAL ROLE SCORE 07/24/2022 09/21/2022 11/09/2022 Social Role Satisfaction Percentile 10 16* 14 PROMIS Global Health Scale 07/17/2022 07/24/2022 09/21/2022 Physical Health Percentile 41 15 10 Mental Health Percentile 26* 9 3 Percentiles provide an indication of how the patient's score ranks in relation to the general population. Higher percentile rankings indicate better function/quality of life. 50th percentile is the average of the general population and indicates half of respondents had a worse score. Depression Screening: PHQ-9 07/17/2022 09/21/2022 11/09/2022 Score 6 8 10 PHQ-9 Self Harm 07/17/2022 09/21/2022 11/09/2022 Question 9 Not at all Not at all Not at all PHQ-9 Self-Harm (Item 9) response options: 0 Not at all 1 Several days 2 More than half the days 3 Nearly every day PHQ-9 Levels: 0-4 No - mild depression 5-9 Mild depression 10-14 Moderate depression 15-19 Moderately severe depression 20-27 Severe depression ACTIVE PROBLEM LIST Chronic Daily Headache Chronic Migraine Without Aura, With Intractable Migraine, So Stated, With Status Migrainosus Medication Overuse Headache Chronic Neck Pain Bilateral Occipital Neuralgia Chronic Musculoskeletal Pain Intractable Chronic Migraine Without Aura and Without Status Migrainosus Migrain (more content not included)... Normal [facility] MRI CERVICAL SPINE WO IVCONo n 11-16-2022 MRI CERVICAL SPINE WO IVCON * * *Final Report* * * DATE OF EXAM: Nov 16 2022 11:16AM FVM [id number] - MRI CERVICAL SPINE WO IVCON / PROCEDURE REASON: multiple diagnoses * * * * Physician Interpretation * * * * EXAMINATION: MRI CERVICAL SPINE WO IVCON CLINICAL HISTORY: Cervicalgia - Fusion of cervical spine - Cervical spondylosis TECHNIQUE: Routine cervical spine MR protocol without gadolinium. MQ: [id number] COMPARISON: Cervical spine radiographs 05/26/2022, MRI cervical spine 07/18/2015 RESULT: Counting reference: Craniocervical junction. Anatomic Variants: None. Localizer images: No significant findings. Alignment: Straightening of the cervical lordosis with minimal spondylolisthesis at C2-3. Mild intervertebral disc space narrowing at C3-4 and C4-5. Craniocervical junction: Craniocervical junction is normal. Cord: The visualized cord is within normal limits of signal intensity and morphology. Bone marrow signal/fracture: Prior ACDF spanning C5-7. No evidence of confluent pathologic marrow replacement or an acute fracture. Soft tissues: The paraspinal soft tissues are within normal limits. C2-C3: Minimal spondylolisthesis and shallow disc bulging partially effacing the ventral thecal sac without cord contact. Patent foramina. C3-C4: Shallow disc/osteophyte complex approximating/abutting the ventral cord. Mild right and moderate left foraminal stenosis due to uncovertebral and facet hypertrophy. C4-C5: Diffuse disc bulging approximating/abutting the ventral cord. Mild-moderate bilateral foraminal stenosis due to uncovertebral and facet hypertrophy. C5-C6: Canal and foramina are patent. C6-C7: Moderate right foraminal stenosis due to uncovertebral and facet hypertrophy. Patent canal and left foramen. C7-T1: Canal and foramina are patent. No high-grade canal or foraminal compromise in the imaged thoracic spine to the level of T3-4. IMPRESSION: Postoperative and spondylotic changes without high-grade bony canal or foraminal compromise, as detailed. Anatomic Variant: None. Assume 7 cervical vertebrae with counting from the craniocervical junction. Flux Mixer: ELEAZAR Transcribe Date/Time: Nov 16 2022 11:21A Dictated by : ROSANA FUNK MD This examination was interpreted and the report reviewed and electronically signed by: ROSANA FUNK MD on Nov 16 2022 11:31AM EST [id number] Normal [facility] CBC AUTO DIFFon 11-14-2022 BASO # 0.0 103/ul Normal 0.0-0.1 [facility] Comment on above: Performed By: #### H GBT #### [facility] [address] [place] [address] Dr. Angus Hernandez Basophils/100 WBC (Bld) 0.5 % Normal 0.2-2.0 [facility] Comment on above: Performed By: #### H GBHCT #### [facility] [address] [place] [address] Dr. Angus Hernandez EO # 0.0 103/ul Normal 0.0-0.7 [facility] Comment on above: Performed By: #### H GBHCT #### [facility] [address] [place] [address] Dr. Angus Hernandez Eosinophils/100 WBC (Bld) 0.0 % Critically low 0.9-7.0 [facility] Comment on above: Performed By: #### H GBHCT #### [facility] [address] [place] [address] Dr. Angus Hernandez Erythrocyte distribution width (RBC) [Ratio] 12.7 % Normal 11.0-15.0 [facility] Comment on above: Performed By: #### H GBHCT #### [facility] [address] [place] [address] Dr. Angus Hernandez Hematocrit (Bld) [Volume fraction] 38.1 % Normal 36.0-48.0 [facility] Comment on above: Performed By: #### H GBHCT #### [facility] [address] [place] [address] Dr. Angus Hernandez Hemoglobin (Bld) [Mass/Vol] 13.1 g/dL Normal 12.0-16.0 [facility] Comment on above: Performed By: #### H GBHCT #### [facility] [address] [place] [address] Dr. Angus Hernandez IG # 0.02 10e3/ul Normal 0.00-0.03 [facility] Comment on above: Performed By: #### H GBHCT #### [facility] [address] [place] [address] Dr. Angus Hernandez IG % 0.3 % Normal 0.0-0.5 [facility] Comment on above: Performed By: #### H GBHCT #### [facility] [address] [address] [address] Angus Hernandez LYMPH # 2.8 103/ul Normal 1.2-3.8 [facility] Comment on above: Performed By: #### H GBHCT #### [facility] [address] [address] [address] Angus Hernandez Lymphocytes/100 WBC (Bld) 36.3 % Normal 20.5-60.0 [facility] Comment on above: Performed By: #### H GBHCT #### [facility] [address] [address] [address] Angus Hernandez MANUAL DIFF REQ NO Normal [facility] Comment on above: Performed By: #### H GBHCT #### [facility] [address] [place] [address] Dr. Angus Hernandez MCH (RBC) [Entitic mass] 29.4 pg Normal 26.7-34.0 [facility] Comment on above: Performed By: #### H GBHCT #### [facility] [address] [place] [address] Dr. Angus Hernandez MCHC (RBC) [Mass/Vol] 34.4 g/dL Normal 29.9-35.2 [facility] Comment on above: Performed By: #### H GBHCT #### [facility] [address] [place] [address] Dr. Angus Hernandez MCV (RBC) [Entitic vol] 85.6 fL Normal 81.0-99.0 [facility] Comment on above: Performed By: #### H GBHCT #### [facility] [address] [place] [address] Dr. Angus Hernandez MONO # 0.5 103/ul Normal 0.3-0.8 [facility] Comment on above: Performed By: #### H GBHCT #### [facility] [address] [place] [address] Dr. Angus Hernandez Monocytes/100 WBC (Bld) 7.1 % Normal 1.7-12.0 [facility] Comment on above: Performed By: #### H GBHCT #### [facility] [address] [address] [address] Angus Hernandez NEUT # 4.3 103/ul Normal 1.4-6.5 [facility] Comment on above: Performed By: #### H GBHCT #### [facility] [address] [address] [address] Angus Hernandez Neutrophils/100 WBC (Bld) 55.8 % Normal 43.0-75.0 [facility] Comment on above: Performed By: #### H GBHCT #### [facility] [address] [address] [address] Angus Hernandez Platelet mean volume (Bld) [Entitic vol] 10.4 fL Normal 9.5-13.5 [facility] Comment on above: Performed By: #### H GBHCT #### [facility] [address] [place] [address] Dr. Angus Hernandez PLT 295 103/ul Normal 150-450 [facility] Comment on above: Performed By: #### H GBHCT #### [facility] [address] [place] [address] Dr. Angus Hernandez RBC 4.45 106/ul Normal 4.20-5.40 [facility] Comment on above: Performed By: #### H GBHCT #### [facility] [address] [place] [address] Dr. Angus Hernandez WBC 7.6 103/ul Normal 4.0-11.0 [facility] Comment on above: Performed By: #### H GBHCT #### [facility] [address] [address] [address] Angus Hernandez GLYCOHEMOGLOBIN A1Con 2022 ADA RECOMMENDATION SEE BELOW Normal [facility] Comment on above: Result Comment: ADA RECOMMENDED LIMIT 4.0 - 6.0 ADA THERAPEUTIC TARGET < 7.0 ACTION SUGGESTED > 7.0 Performed By: #### P THINT #### [facility] [address] [place] [address] Dr. Angus Hernandez Glucose [Mass/Vol] 103 mg/dL Normal [facility] Comment on above: Performed By: #### P THINT #### [facility] [address] [address] [address] Angus Hernandez HbA1c (Bld) [Mass fraction] 5.2 % Normal 4.5-6.2 [facility] Comment on above: Performed By: #### P THINT #### [facility] [address] [address] [address] Angus Hernandez LIPID PROFILEon 11-14-2022 CHOL-HDL RATIO NORM SEE BELOW Normal [facility] Comment on above: Result Comment: 3.3 - 4.4 LOW RISK 4.4 - 7.1 AVERAGE RISK 7.1 - 11.0 MODERATE RISK >11.0 HIGH RISK Performed By: #### P THINT #### [facility] [address] [address] [address] Angus Hernandez Cholesterol [Mass/Vol] 195 mg/dL Normal <=200 [facility] Comment on above: Performed By: #### P THINT #### [facility] [address] [address] [address] Angus Hernandez Cholesterol in HDL [Mass/Vol] 42 mg/dL Normal 40-60 [facility] Comment on above: Performed By: #### P THINT #### [facility] [address] [address] [address] Angus Hernandez Cholesterol in LDL [Mass/Vol] 107.0 mg/dL Normal [facility] Comment on above: Performed By: #### P THINT #### [facility] [address] [address] [address] Angus Hernandez Cholesterol.total/Cho lesterol in HDL [Mass ratio] 4.6 {ratio} Normal [facility] Comment on above: Performed By: #### P THINT #### [facility] [address] [address] [address] Angus Hernandez HDL NORMAL > or = 60 mg/dl - LO W CARDIOVASCULAR RISK <40 mg/dl - HIGH CARDIOVASCULAR RISK Normal [facility] Comment on above: Performed By: #### P THINT #### [facility] [address] [address] [address] Angus Hernandez LDL CALC NORMAL SEE BELOW Normal [facility] Comment on above: Result Comment: <100 mg/dl OPTIMAL 100 - 129 mg/dl NEAR OR ABOVE OPTIMAL 130 - 159 mg/dl BORDERLINE HIGH 160 - 189 mg/dl HIGH >190 mg/dl VERY HIGH Performed By: #### P THINT #### [facility] [address] [address] [address] Angus Hernandez Triglyceride [Mass/Vol] 230 mg/dL Critically high <=150 [facility] Comment on above: Performed By: #### P THINT #### [facility] [address] [address] [address] Angus Hernandez VLDL CALC 46.0 mg/dL Normal [facility] Comment on above: Performed By: #### P THINT #### [facility] [address] [place] [address] Dr. Angus Hernandez PROF 14(COMP METB)on 023 Albumin [Mass/Vol] 3.9 g/dL Normal 3.4-5.0 [facility] Comment on above: Performed By: #### P THINT #### [facility] [address] [place] [address] Dr. Angus Hernandez Albumin/Globulin [Mass ratio] 1.1 {ratio} Normal [facility] Comment on above: Performed By: #### P THINT #### [facility] [address] [place] [address] Dr. Angus Hernandez ALP [Catalytic activity/Vol] 58 U/L Normal 46-116 [facility] Comment on above: Performed By: #### P THINT #### [facility] [address] [address] [address] Angus Hernandez ALT [Catalytic activity/Vol] 14 U/L Normal 14-59 [facility] Comment on above: Performed By: #### P THINT #### [facility] [address] [place] [address] Dr. Angus Hernandez Anion gap [Moles/Vol] 11.3 mmol/L Normal [facility] Comment on above: Performed By: #### P THINT #### [facility] [address] [address] [address] Angus Hernandez AST [Catalytic activity/Vol] 20 U/L Normal 15-37 [facility] Comment on above: Performed By: #### P THINT #### [facility] [address] [address] [address] Angus Hernandez Bilirubin [Mass/Vol] 0.7 mg/dL Normal 0.2-1.0 [facility] Comment on above: Performed By: #### P THINT #### [facility] [address] [address] [address] Angus Hernandez Calcium [Mass/Vol] 9.2 mg/dL Normal 8.5-10.1 [facility] Comment on above: Performed By: #### P THINT #### [facility] [address] [address] [address] Angus Hernandez Chloride [Moles/Vol] 106 mmol/L Normal 98-107 [facility] Comment on above: Performed By: #### P THINT #### [facility] [address] [address] [address] Angus Hernandez CO2 [Moles/Vol] 28.8 mmol/L Normal 21.0-32.0 [facility] Comment on above: Performed By: #### P THINT #### [facility] [address] [address] [address] Angus Hernandez Creatinine [Mass/Vol] 1.15 mg/dL Critically high 0.55-1.02 [facility] Comment on above: Performed By: #### P THINT #### [facility] [address] [address] [address] Angus Hernandez EGFR-AF SAO TOMEAN 59 mL/min/1.73m2 Critically low >=60 [facility] Comment on above: Performed By: #### P THINT #### [facility] [address] [address] [address] Angus Hernandez EGFR-NON AF SAO TOMEAN 49 mL/min/1.73m2 Critically low >=60 [facility] Comment on above: Performed By: #### P THINT #### [facility] [address] [address] [address] Angus Hernandez Globulin (S) [Mass/Vol] 3.4 g/dL Normal [facility] Comment on above: Performed By: #### P THINT #### [facility] [address] [address] [address] Angus Hernandez Glucose [Mass/Vol] 112 mg/dL Critically high 74-106 [facility] Comment on above: Performed By: #### P THINT #### [facility] [address] [address] [address] Angus Hernandez Potassium [Moles/Vol] 4.1 mmol/L Normal 3.5-5.1 [facility] Comment on above: Performed By: #### P THINT #### [facility] [address] [address] [address] Angus Hernandez Protein [Mass/Vol] 7.3 g/dL Normal 6.4-8.2 [facility] Comment on above: Performed By: #### P THINT #### [facility] [address] [address] [address] Angus Hernandez Sodium [Moles/Vol] 142 mmol/L Normal 136-145 [facility] Comment on above: Performed By: #### P THINT #### [facility] [address] [address] [address] Angus Hernandez Urea nitrogen [Mass/Vol] 17.0 mg/dL Normal 7.0-18.0 [facility] Comment on above: Performed By: #### P THINT #### [facility] [address] [address] [address] Angus Hernandez Urea nitrogen/Creatinine [Mass ratio] 14.8 mg/mg Normal [facility] Comment on above: Performed By: #### P THINT #### [facility] [address] [address] [address] Angus Hernandez TSHon 11-14-2022 TSH 1.092 uIU/mL Normal 0.358-3.740 [facility] Comment on above: Performed By: #### P THINT #### [facility] [address] [place] [address] Dr. Angus Doherty 11-13-2022 CNPN Telephone (RIF) MYRTLE JONES ([id number]) 1965 F Date Time Provider Department 11/13/22 LORI MUELLER) [place] During your visit today, we recorded the following information about you: Lori Palmer 11/13/2022 2:22 PM Signed MRI- 11/16/2022 @ 1040am Appointment reminder call - LEFT MESSAGE - with directions to office and the # to call if they cannot keep this appointment [phone] Allergies As of Date: 11/13/2022 Noted Allergy Reaction TOPAMAX (TOPIRAMATE) 05/09/2018 1 - Mental Status Change Date Reviewed: 07/24/2022 Reviewed by: Betsy Bang Ma - Fully Assessed Reason for Visit: appointment instructions [Other] Cmt: MRI- 11/16/2022 @ 1040am Appointment reminder call - LEFT MESSAGE - with directions to office and the # to call if they cannot keep this appointment [phone] Prescriptions as of 11/13/2022 - erenumab-aooe 140 mg/mL subcutaneous auto-injector (AIMOVIG) INJECT 140 MG SUBCUTANEOUSLY ONCE EVERY MONTH. - SUMAtriptan (IMITREX) 20 mg/actuation nasal spray 1 spray in 1 nostril at migraine onset. May repeat once in 2 hours if needed. - propranolol ER (INDERAL LA) 80 mg 24 hr capsule Take 1 capsule by mouth once daily. - ZOLMitriptan (ZOMIG) 5 mg nasal spray 1 spray in 1 nostril at headache onset. May repeat once in 2 hours if needed. Give max sprays allowed per insurance. - rizatriptan (MAXALT) 10 mg tablet 1 tab at earliest sign of migraine. May repeat once in 2 hours if needed. Give max allowed per insurance. - scopolamine (TRANSDERM-SCOP) 1.5 mg (1 mg over 3 days) Apply 1 Patch as directed every 72 hours. APPLY 1 DISC BEHIND THE EAR AT LEAST 4 HOURS PRIOR TO EXPOSURE AND EVERY 3 DAYS NEEDED. - Ascorbic Acid (VITAMIN C) 1,000 mg tablet Take 1,000 mg by mouth once daily. - ONDANSETRON HCL (ZOFRAN ORAL) Take 4 mg by mouth as needed. - CYANOCOBALAMIN, VITAMIN B-12, (VITAMIN B-12 ORAL) Take by mouth. Problem List As Of Date 11/13/2022 Noted Resolved Chronic daily headache [R51.9] 10/11/2015 Chronic migraine without aura, with intractable*10/11/2015 Medication overuse headache [G44.40] 10/11/2015 Chronic neck pain [M54.2, G89.29] 10/11/2015 Bilateral occipital neuralgia [M54.81] 10/11/2015 Chronic musculoskeletal pain [M79.18, G89.29] 07/03/2016 Intractable chronic migraine without aura and w*12/27/2019 Migraine without aura and without status migrai*09/23/2020 Migraine with aura and without status migrainos*09/23/2020 Intractable chronic migraine without aura and w*09/23/2020 Cervicalgia [M54.2] 07/24/2022 Encounter Status:Closed [facility] MYRTLE JONES ([id number]) 1965 F Date Time Provider Department 07/28/22 8:10 AM ANAID MCCAULEY [facility] During your visit today, we recorded the following information about you: Temperature Pulse Blood pressure Weight 97.1 degrees 52/minute 158/92 78.8 kg Height 1.702 m Anaid Mccauley APRN.STRATEGY ASSOCIATE 07/28/2022 8:47 AM Signed [facility] Neck Pain - Chronic (> 12 weeks) Initial Exam SUBJECTIVE HISTORY OF PRESENT ILLNESS: Myrtle Jones is a 57 year old female who presents with a chief complaint of neck and arm pain and is seen in consultation requested by Dr. Cresencio Robles for an opinion regarding neck pain. My final recommendations will be communicated back to the requesting physician by way of shared medical record or letter via US mail. Patient presents with neck pain worse in the last 4 mths. Denies accident/injury Pain localized to lower Cspine Pain described as aching Radiation: aching in forearms- no clear radicular symptoms Numbness/Tingling: none consistent Pain worse with activity Pain improved with nothing Interventions: topicals, ice Medications: tylenol prn, Previously on: elavil, cymbalta, nortriptyline, topomax, vicodin Physical Therapy: Online through [email or web address]. Started in April 2022- current Treating Physicians: Dr Robles Headache Neuro History of Spine Injections/Surgery: Cervical fusion C6-7 2001 and C5-[address] Pranay Melgoza No injections Hx: migraines, occipital neuralgia, HTN, CKD Other Issues Addressed at the Visit Today: None. Precipitating Event: None PAIN EVALUATION 07/28/2022 0746 Pain Level: 7 Pain Location: Neck radiaites into both foreams Description: Sharp;Shooting;Pressur e;Aching Duration Amount of Time: 4 Duration Units: Months Frequency: Continuous Intervention/Comfort measure: Medication Litigation: No Workers' Compensation: No YELLOW AND BLUE FLAGS No-Neg Attitude; Back Pain is Disabling No-Avoiding Activity (for Fear of Pain) No-Depression or Anxiety Disorders No-Social Problems No-Substance Use Disorder No-Job Dissatisfaction No-Financial Disincentives Patient Entered Questionnaires Spine Questions 07/24/2022 Pain Location: Upper back/torso Pain Duration: 3-6 months Pain over last 6 months: Every day or nearly every day in the past 6 months Symptoms from neck/cervical spine: Yes Employment Status: Working now Involved in law suit/legal claim: No Spine Red Flags 07/24/2022 Any type of cancer: No Unexplained fever: No Bowel or bladder disfunction: No Unintentional weight loss: No Osteoporosis: No Neck Questionnaires 07/24/2022 Benzel Modified MARINE Score 18 (A lower score indicates increased pain and issues.) PROMIS Score Percentiles Physical Health 07/24/2022 Physical Function Percentile 12 Sleep Percentile 10 Fatigue Percentile 8 Pain Interference Percentile 8 PROMIS SOCIAL ROLE SCORE 07/24/2022 Social Role Satisfaction Percentile 10 PROMIS Global Health Scale 07/12/2021 07/17/2022 07/24/2022 Physical Health Percentile 53 41 15 Mental Health Percentile 26* 26* 9 Percentiles provide an indication of how the patient's score ranks in relation to the general population. Higher percentile rankings indicate better function/quality of life. 50th percentile is the average of the general population and indicates half of respondents had a worse score. Depression Screening: PHQ-9 01/27/2021 07/12/2021 07/17/2022 Score 0 7 6 PHQ-9 Self Harm 01/27/2021 07/12/2021 07/17/2022 Question 9 Not at all Several days Not at all PHQ-9 Self-Harm (Item 9) response options: 0 Not at all 1 Several days 2 More than half the days 3 Nearly every day PHQ-9 Levels: 0-4 No - mild depression 5-9 Mild depression 10-14 Moderate depression 15-19 Moderately severe depression 20-27 Severe depression ACTIVE PROBLEM LIST Chronic Daily Headache Chronic Migraine Without Aura, With Intractable Migraine, So Stated, With Status Migrainosus Medication Overuse Headache Chronic Neck Pain Bilateral Occipital Neuralgia Chronic Musculoskeletal Pain Intractable Chronic Migraine Without Aura and Without Status Migrainosus Migraine Without Aura and Without Status Migrainosus, Not Intractable Migraine With Aura and Without Status Migrainosus, Not Intractable Intractable Chronic Migraine Without Aura and With Status Migrainosus Cervicalgia PAST MEDICAL HISTORY Diagnosis Date Cervicalgia Migraine with aura PAST SURGICAL HISTORY Procedure Laterality Date PAST SURGICAL HISTORY OF Cervical spine fusion C5-6 PAST SURGICAL HISTORY OF CTS b/l PAST SURGICAL HISTORY OF Hysterectomy PAST SURGICAL HISTORY OF Lasik PAST SURGICAL HISTORY OF L elbow Social History Tobacco Use Smoking status: Never Smokeless tobacco: Never Substance Use Topics Alcohol use: Yes (more content not included)... Normal [facility] CORTISOL Tomas 05-28-2022 Cortisol AM 13.1 ug/dL Normal 6.2-19.4 [facility] Comment on above: Performed By: #### H GBHCT #### [facility] [address] [address] [address] Angus Hernandez CORTISOL PMon 05-28-2022 Cortisol PM 4.1 ug/dL Normal 2.3-11.9 [facility] Comment on above: Performed By: #### H H #### [facility] [address] [address] [address] Angus Hernandez INSULINon 05-28-2022 Insulin 7.6 uIU/mL Normal 2.6-24.9 [facility] Comment on above: Performed By: #### I NSULIN #### [facility] [address] [place] [address] Dr. Angus Hernandez XR CSPINE MIN 4 VIEWSon 05-02 XR CSPINE MIN 4 VIEWS EXAMINATION: XR CS PINE MIN 4 VIEWS HISTORY: Degeneration of cervical intervertebral disc ; cervical pain for 3 months; no known injury COMPARISON: XR cervical spine 05/09/2020 FINDINGS: BONES: Reversal of the normal lordotic curvature extending from C2 to C5. Anterior mechanical fusion of C5 and C6. Osseous fusion of C5-C6-C7. Multilevel mild degenerative facet arthropathy. Moderate narrowing of the right C3-C4 foramen due to osseous encroachment. DISC SPACES: Mild narrowing C3-C4, C4-C5. No disc space at C5-C6 and C6-C7 secondary to osseous fusion. PARASPINOUS: Negative. No paraspinous abnormality is seen. OTHER: Negative. IMPRESSION: 1. Stable surgical changes and grossly stable degenerative changes. 2. No appreciable acute abnormality. Electronically authenticated by: FELISA TUCKER Date: 2022-05-27 07:57 Normal [facility] XR TSPINE 3 VIEWSon 05-27-20 22 XR TSPINE 3 VIEWS EXAMINATION: XR TSPI NE 3 VIEWS HISTORY: Degeneration of cervical intervertebral disc ; pain for 3 months, no known injury COMPARISON: No relevant comparison available. FINDINGS: BONES: No significant spondylosis, scoliosis, fracture, or visible bony lesion. DISC SPACES: Multilevel mild degenerative disc disease of the mid and lower thoracic spine. PARASPINOUS: Negative. No paraspinous abnormality is seen. OTHER: Negative. IMPRESSION: 1. No acute bone abnormality. 2. Multilevel mild degenerative disc disease. Electronically authenticated by: FELISA TUCKER Date: 2022-05-27 08:00 Normal [facility] CBC AUTO DIFFon 05-09-2022 BASO # 0.1 103/ul Normal 0.0-0.1 [facility] Comment on above: Performed By: #### C BC #### [facility] [address] [address] [address] Angus Hernandez Basophils/100 WBC (Bld) 0.7 % Normal 0.2-2.0 [facility] Comment on above: Performed By: #### C BC #### [facility] [address] [place] [address] Dr. Angus Hernandez EO # 0.2 103/ul Normal 0.0-0.7 [facility] Comment on above: Performed By: #### C BC #### [facility] [address] [address] [address] Angus Hernandez Eosinophils/100 WBC (Bld) 2.4 % Normal 0.9-7.0 [facility] Comment on above: Performed By: #### C BC #### [facility] [address] [place] [address] Dr. Angus Hernandez Erythrocyte distribution width (RBC) [Ratio] 12.8 % Normal 11.0-15.0 [facility] Comment on above: Performed By: #### C BC #### [facility] [address] [place] [address] Dr. Angus Hernandez Hematocrit (Bld) [Volume fraction] 35.9 % Critically low 36.0-48.0 [facility] Comment on above: Performed By: #### C BC #### [facility] [address] [place] [address] Dr. Angus Hernandez Hemoglobin (Bld) [Mass/Vol] 12.0 g/dL Normal 12.0-16.0 [facility] Comment on above: Performed By: #### C BC #### [facility] [address] [place] [address] Dr. Angus Hernandez IG # 0.03 10e3/ul Normal 0.00-0.03 [facility] Comment on above: Performed By: #### C BC #### [facility] [address] [place] [address] Dr. Angus Hernandez IG % 0.4 % Normal 0.0-0.5 [facility] Comment on above: Performed By: #### C BC #### [facility] [address] [place] [address] Dr. Angus Hernandez LYMPH # 2.2 103/ul Normal 1.2-3.8 [facility] Comment on above: Performed By: #### C BC #### [facility] [address] [place] [address] Dr. Angus Hernandez Lymphocytes/100 WBC (Bld) 32.7 % Normal 20.5-60.0 [facility] Comment on above: Performed By: #### C BC #### [facility] [address] [place] [address] Dr. Angus Hernandez MANUAL DIFF REQ NO Normal [facility] Comment on above: Performed By: #### C BC #### [facility] [address] [place] [address] Dr. Angus Hernandez MCH (RBC) [Entitic mass] 30.7 pg Normal 26.7-34.0 [facility] Comment on above: Performed By: #### C BC #### [facility] [address] [place] [address] Dr. Angus Hernandez MCHC (RBC) [Mass/Vol] 33.4 g/dL Normal 29.9-35.2 [facility] Comment on above: Performed By: #### C BC #### [facility] [address] [place] [address] Dr. Angus Henrandez MCV (RBC) [Entitic vol] 91.8 fL Normal 81.0-99.0 [facility] Comment on above: Performed By: #### C BC #### [facility] [address] [place] [address] Dr. Angus Hernandez MONO # 0.5 103/ul Normal 0.3-0.8 [facility] Comment on above: Performed By: #### C BC #### [facility] [address] [place] [address] Dr. Angus Hernandez Monocytes/100 WBC (Bld) 7.1 % Normal 1.7-12.0 [facility] Comment on above: Performed By: #### C BC #### [facility] [address] [address] [address] Angus Hernandez NEUT # 3.8 103/ul Normal 1.4-6.5 [facility] Comment on above: Performed By: #### C BC #### [facility] [address] [place] [address] Dr. Angus Hernandez Neutrophils/100 WBC (Bld) 56.7 % Normal 43.0-75.0 [facility] Comment on above: Performed By: #### C BC #### [facility] [address] [place] [address] Dr. Angus Hernandez Platelet mean volume (Bld) [Entitic vol] 10.4 fL Normal 9.5-13.5 [facility] Comment on above: Performed By: #### C BC #### [facility] [address] [place] [address] Dr. Angus Hernandez PLT 243 103/ul Normal 150-450 [facility] Comment on above: Performed By: #### C BC #### [facility] [address] [place] [address] Dr. Angus Hernandez RBC 3.91 106/ul Critically low 4.20-5.40 [facility] Comment on above: Performed By: #### C BC #### [facility] [address] [place] [address] Dr. Angus Hernandez WBC 6.7 103/ul Normal 4.0-11.0 [facility] Comment on above: Performed By: #### C BC #### [facility] [address] [place] [address] Dr. Angus Hernandez GLYCOHEMOGLOBIN A1Con 2021 ADA RECOMMENDATION SEE BELOW Normal [facility] Comment on above: Result Comment: ADA RECOMMENDED LIMIT 4.0 - 6.0 ADA THERAPEUTIC TARGET < 7.0 ACTION SUGGESTED > 7.0 Performed By: #### H GBHCT #### [facility] [address] [address] [address] Angus Hernandez Glucose [Mass/Vol] 111 mg/dL Normal [facility] Comment on above: Performed By: #### H GBHCT #### [facility] [address] [address] [address] Angus Hernandez HbA1c (Bld) [Mass fraction] 5.5 % Normal 4.5-6.2 [facility] Comment on above: Performed By: #### H GBHCT #### [facility] [address] [address] [address] Angus Hernandez LIPID PROFILEon 05-09-2022 CHOL-HDL RATIO NORM SEE BELOW Normal [facility] Comment on above: Result Comment: 3.3 - 4.4 LOW RISK 4.4 - 7.1 AVERAGE RISK 7.1 - 11.0 MODERATE RISK >11.0 HIGH RISK Performed By: #### L IPID, CMP #### [facility] [address] [address] [address] Angus Hernandez Cholesterol [Mass/Vol] 188 mg/dL Normal <=200 [facility] Comment on above: Performed By: #### L IPID, CMP #### [facility] [address] [address] [address] Angus Hernandez Cholesterol in HDL [Mass/Vol] 40 mg/dL Normal 40-60 [facility] Comment on above: Performed By: #### L IPID, CMP #### [facility] [address] [address] [address] Angus Hernandez Cholesterol in LDL [Mass/Vol] 93.4 mg/dL Normal [facility] Comment on above: Performed By: #### L IPID, CMP #### [facility] [address] [address] [address] Angus Hernandez Cholesterol.total/Cho lesterol in HDL [Mass ratio] 4.7 {ratio} Normal [facility] Comment on above: Performed By: #### L IPID, CMP #### [facility] [address] [address] [address] Angus Hernandez HDL NORMAL > or = 60 mg/dl - LO W CARDIOVASCULAR RISK <40 mg/dl - HIGH CARDIOVASCULAR RISK Normal [facility] Comment on above: Performed By: #### L IPID, CMP #### [facility] [address] [address] [address] Angus Hernandez LDL CALC NORMAL SEE BELOW Normal [facility] Comment on above: Result Comment: <100 mg/dl OPTIMAL 100 - 129 mg/dl NEAR OR ABOVE OPTIMAL 130 - 159 mg/dl BORDERLINE HIGH 160 - 189 mg/dl HIGH >190 mg/dl VERY HIGH Performed By: #### L IPID, CMP #### [facility] [address] [place] [address] Dr. Angus Hernandez Triglyceride [Mass/Vol] 273 mg/dL Critically high <=150 [facility] Comment on above: Performed By: #### L IPID, CMP #### [facility] [address] [place] [address] Dr. Angus Hernandez VLDL CALC 54.6 mg/dL Normal [facility] Comment on above: Performed By: #### L IPID, CMP #### [facility] [address] [address] [address] Angus Hernandez PROF 14(COMP METB)on 022 Albumin [Mass/Vol] 3.7 g/dL Normal 3.4-5.0 [facility] Comment on above: Performed By: #### L IPID, CMP #### [facility] [address] [place] [address] Dr. Angus Hernandez Albumin/Globulin [Mass ratio] 1.1 {ratio} Normal [facility] Comment on above: Performed By: #### L IPID, CMP #### [facility] [address] [place] [address] Dr. Angus Hernandez ALP [Catalytic activity/Vol] 46 U/L Normal 46-116 [facility] Comment on above: Performed By: #### L IPID, CMP #### [facility] [address] [address] [address] Angus Hernandez ALT [Catalytic activity/Vol] 26 U/L Normal 14-59 [facility] Comment on above: Performed By: #### L IPID, CMP #### [facility] [address] [place] [address] Dr. Angus Hernandez Anion gap [Moles/Vol] 10.9 mmol/L Normal [facility] Comment on above: Performed By: #### L IPID, CMP #### [facility] [address] [place] [address] Dr. Angus Hernandez AST [Catalytic activity/Vol] 15 U/L Normal 15-37 [facility] Comment on above: Performed By: #### L IPID, CMP #### [facility] [address] [place] [address] Dr. Angus Hernandez Bilirubin [Mass/Vol] 0.6 mg/dL Normal 0.2-1.0 [facility] Comment on above: Performed By: #### L IPID, CMP #### [facility] [address] [place] [address] Dr. Angus Hernandez Calcium [Mass/Vol] 9.0 mg/dL Normal 8.5-10.1 [facility] Comment on above: Performed By: #### L IPID, CMP #### [facility] [address] [place] [address] Dr. Angus Hernandez Chloride [Moles/Vol] 107 mmol/L Normal 98-107 [facility] Comment on above: Performed By: #### L IPID, CMP #### [facility] [address] [place] [address] Dr. Angus Hernandez CO2 [Moles/Vol] 27.3 mmol/L Normal 21.0-32.0 [facility] Comment on above: Performed By: #### L IPID, CMP #### [facility] [address] [place] [address] Dr. Angus Hernandez Creatinine [Mass/Vol] 1.19 mg/dL Critically high 0.55-1.02 [facility] Comment on above: Performed By: #### L IPID, CMP #### [facility] [address] [address] [address] Angus Hernandez EGFR-AF SAO TOMEAN 57 mL/min/1.73m2 Critically low >=60 [facility] Comment on above: Performed By: #### L IPID, CMP #### [facility] [address] [address] [address] Angus Hernandez EGFR-NON AF SAO TOMEAN 47 mL/min/1.73m2 Critically low >=60 [facility] Comment on above: Performed By: #### L IPID, CMP #### [facility] [address] [address] [address] Angus Hernandez Globulin (S) [Mass/Vol] 3.5 g/dL Normal [facility] Comment on above: Performed By: #### L IPID, CMP #### [facility] [address] [place] [address] Dr. Angus Hernandez Glucose [Mass/Vol] 108 mg/dL Critically high 74-106 [facility] Comment on above: Performed By: #### L IPID, CMP #### [facility] [address] [address] [address] Angus Hernandez Potassium [Moles/Vol] 4.2 mmol/L Normal 3.5-5.1 [facility] Comment on above: Performed By: #### L IPID, CMP #### [facility] [address] [address] [address] Angus Hernandez Protein [Mass/Vol] 7.2 g/dL Normal 6.4-8.2 [facility] Comment on above: Performed By: #### L IPID, CMP #### [facility] [address] [address] [address] Angus Hernandez Sodium [Moles/Vol] 141 mmol/L Normal 136-145 [facility] Comment on above: Performed By: #### L IPID, CMP #### [facility] [address] [address] [address] Angus Hernandez Urea nitrogen [Mass/Vol] 16.0 mg/dL Normal 7.0-18.0 [facility] Comment on above: Performed By: #### L IPID, CMP #### [facility] [address] [address] [address] Angus Hernandez Urea nitrogen/Creatinine [Mass ratio] 13.4 mg/mg Normal [facility] Comment on above: Performed By: #### L IPID, CMP #### [facility] [address] [address] [address] Angus Heranndez PTH INTACTon 02-04-2022 PTH, Intact 22 pg/mL Normal 15-65 [facility] Comment on above: Performed By: #### P THINT #### [facility] [address] [place] [address] Dr. Angus Hernandez HEMOGRAM AND PLATELon 2021 Hematocrit (Bld) [Volume fraction] 39.5 % Normal 36.0-48.0 [facility] Comment on above: Performed By: #### H H #### [facility] [address] [place] [address] Dr. Angus Hernandez Hemoglobin (Bld) [Mass/Vol] 13.3 g/dL Normal 12.0-16.0 [facility] Comment on above: Performed By: #### H H #### [facility] [address] [place] [address] Dr. Angus Hernandez MCH (RBC) [Entitic mass] 30.4 pg Normal 26.7-34.0 [facility] Comment on above: Performed By: #### H H #### [facility] [address] [place] [address] Dr. Angus Hernandez MCHC (RBC) [Mass/Vol] 33.7 g/dL Normal 29.9-35.2 [facility] Comment on above: Performed By: #### H H #### [facility] [address] [place] [address] Dr. Angus Hernandez MCV (RBC) [Entitic vol] 90.2 fL Normal 81.0-99.0 [facility] Comment on above: Performed By: #### H H #### [facility] [address] [place] [address] Dr. Angus Hernandez PLT 256 103/ul Normal 150-450 [facility] Comment on above: Performed By: #### H H #### [facility] [address] [place] [address] Dr. Angus Hernandez RBC 4.38 106/ul Normal 4.20-5.40 [facility] Comment on above: Performed By: #### H H #### [facility] [address] [place] [address] Dr. Angus Hernandez WBC 8.7 103/ul Normal 4.0-11.0 [facility] Comment on above: Performed By: #### H H #### [facility] [address] [place] [address] Dr. Angus Hernandez MAGNESIUMon 02-03-2022 Magnesium [Mass/Vol] 2.0 mg/dL Normal 1.6-2.3 [facility] Comment on above: Performed By: #### H GBHCT #### [facility] [address] [place] [address] Dr. Angus Hernandez RENAL FUNCTION PANELon 02-03 Albumin [Mass/Vol] 3.9 g/dL Normal 3.4-5.0 [facility] Comment on above: Performed By: #### H H #### [facility] [address] [place] [address] Dr. Angus Hernandez Calcium [Mass/Vol] 8.8 mg/dL Normal 8.5-10.1 [facility] Comment on above: Performed By: #### H H #### [facility] [address] [place] [address] Dr. Angus Hernandez Chloride [Moles/Vol] 104 mmol/L Normal 98-107 [facility] Comment on above: Performed By: #### H H #### [facility] [address] [place] [address] Dr. Angus Hernandez CO2 [Moles/Vol] 28.3 mmol/L Normal 22.0-30.0 [facility] Comment on above: Performed By: #### H H #### [facility] [address] [place] [address] Dr. Angus Hernandez Creatinine [Mass/Vol] 1.22 mg/dL Critically high 0.52-1.04 [facility] Comment on above: Performed By: #### H H #### [facility] [address] [address] [address] Angus Hernandez EGFR-AF SAO TOMEAN 56 mL/min/1.73m2 Critically low >=60 [facility] Comment on above: Performed By: #### H H #### [facility] [address] [address] [address] Angus Hernandez EGFR-NON AF SAO TOMEAN 46 mL/min/1.73m2 Critically low >=60 [facility] Comment on above: Performed By: #### H H #### [facility] [address] [place] [address] Dr. Angus Hernandez Glucose [Mass/Vol] 77 mg/dL Normal 74-106 [facility] Comment on above: Performed By: #### H H #### [facility] [address] [address] [address] Angus Hernandez Phosphate [Mass/Vol] 3.9 mg/dL Normal 2.5-4.5 [facility] Comment on above: Performed By: #### H H #### [facility] [address] [place] [address] Dr. Angus Hernandez Potassium [Moles/Vol] 4.3 mmol/L Normal 3.4-5.0 [facility] Comment on above: Performed By: #### H H #### [facility] [address] [address] [address] Angus Hernandez Sodium [Moles/Vol] 140 mmol/L Normal 137-145 [facility] Comment on above: Performed By: #### H H #### [facility] [address] [address] [address] Angus Hernandez Urea nitrogen [Mass/Vol] 22.0 mg/dL Critically high 7.0-18.0 [facility] Comment on above: Performed By: #### H H #### [facility] [address] [address] [address] Angus Hernandez UA RANDOM W/MICROSCOPICon BACTERIA NONE SEEN Normal NONE SEEN [facility] Comment on above: Performed By: #### H GBHCT #### [facility] [address] [place] [address] Dr. Angus Hernandez Bilirubin Ql (U) Negative Normal NEGATIVE [facility] Comment on above: Performed By: #### H GBHCT #### [facility] [address] [place] [address] Dr. Angus Hernandez CAST NONE SEEN Normal NONE SEEN [facility] Comment on above: Performed By: #### H GBHCT #### [facility] [address] [place] [address] Dr. Angus Hernandez Clarity (U) CLEAR Normal CLEAR [facility] Comment on above: Performed By: #### H GBHCT #### [facility] [address] [place] [address] Dr. Angus Hernandez Color (U) YELLOW Normal YELLOW [facility] Comment on above: Performed By: #### H GBHCT #### [facility] [address] [place] [address] Dr. Angus Hernandez Crystals LM Nom (Urine sed) NONE SEEN Normal NONE SEEN [facility] Comment on above: Performed By: #### H GBHCT #### [facility] [address] [place] [address] Dr. Angus Hernandez Epithelial cells LM Ql (Urine sed) FEW Abnormal NONE SEEN /RARE [facility] Comment on above: Performed By: #### H GBHCT #### [facility] [address] [place] [address] Dr. Angus Hernandez Glucose Ql (U) Negative Normal NEGATIVE [facility] Comment on above: Performed By: #### H GBHCT #### [facility] [address] [place] [address] Dr. Angus Hernandez Hemoglobin Ql (U) Negative Normal NEGATIVE [facility] Comment on above: Performed By: #### H GBHCT #### [facility] [address] [place] [address] Dr. Angus Hernandez Ketones Ql (U) Negative Normal NEGATIVE [facility] Comment on above: Performed By: #### H GBHCT #### [facility] [address] [place] [address] Dr. Angus Hernandez LEUKOCYTES Negative Normal NEGATIVE [facility] Comment on above: Performed By: #### H GBHCT #### [facility] [address] [place] [address] Dr. Angus Hernandez MUCOUS NONE SEEN Normal NONE SEEN [facility] Comment on above: Performed By: #### H GBHCT #### [facility] [address] [address] [address] Angus Hernandez Nitrite Ql (U) Negative Normal NEGATIVE [facility] Comment on above: Performed By: #### H GBHCT #### [facility] [address] [place] [address] Dr. Angus Hernandez pH (U) 5.5 [pH] Normal 5-9 [facility] Comment on above: Performed By: #### H GBHCT #### [facility] [address] [place] [address] Dr. Angus Hernandez RBC NONE SEEN Abnormal 0-2 [facility] Comment on above: Performed By: #### H GBHCT #### [facility] [address] [place] [address] Dr. Angus Hernandez SPEC GRAVITY >=1.030 Abnormal 1.005-<=1.[address] [facility] Comment on above: Performed By: #### H GBHCT #### [facility] [address] [address] [address] Angus Hernandez UA PROTEIN Negative Normal NEGATIVE/ TRACE [facility] Comment on above: Performed By: #### H GBHCT #### [facility] [address] [place] [address] Dr. Angus Hernandez Urobilinogen Qn (U) 0.2 {Tara'U}/dL Normal 0.2 - 1. 0 [facility] Comment on above: Performed By: #### H GBHCT #### [facility] [address] [place] [address] Dr. Angus Hernandez WBC NONE SEEN Normal NONE SEEN [facility] Comment on above: Performed By: #### H GBHCT #### [facility] [address] [address] [address] Angus Hernandez URIC ACID SERUMon 02-03-2022 Urate [Mass/Vol] 4.5 mg/dL Normal 2.5-6.2 [facility] Comment on above: Performed By: #### H GBHCT #### [facility] [address] [address] [address] Angus Hernandez URINE T PROTEIN CREAT RATIOo n 02-03-2022 Protein (U) [Mass/Vol] 22.9 mg/dL Critically high <=12.0 [facility] Comment on above: Performed By: #### H GBHCT #### [facility] [address] [place] [address] Dr. Angus Hernandez UR PROT CREAT RAT 0.11 Normal [facility] Comment on above: Performed By: #### H GBHCT #### [facility] [address] [place] [address] Dr. Angus Hernandez URINE CREAT 217.05 mg/dL Normal 20.00-300.[address] [facility] Comment on above: Performed By: #### H GBHCT #### [facility] [address] [place] [address] Dr. Angus Hernandez VITAMIN D 25 OHon 02-03-2022 VIT D 25-OH 112.7 ng/mL Normal [facility] Comment on above: Performed By: #### H GBHCT #### [facility] [address] [place] [address] Dr. Angus Hernandez VIT D RANGES SEE BELOW Normal [facility] Comment on above: Result Comment: <20 ng/mL Vit D deficient 20 - <30 ng/mL Vit D insufficient 30 - 100 ng/mL Vit D sufficient >100 ng/mL Potential Toxicity Performed By: #### H GBHCT #### [facility] [address] [place] [address] Dr. Angus Hernandez Covid-19 PCR (CVDTB)on 12-31 SARS-CoV-2 (COVID-19) RNA MATTHIEU+probe Ql (Unsp spec) Not detected Normal NOT DETECTED [facility] Comment on above: Result Comment: When diagnostic testing is negative, the possibility of a false negative should be considered in the context of a patient's recent exposures and the presence of clinical signs and symptoms consistent with SARS-CoV-2. This test is not yet approved or cleared by the [place] FDA. When there are no FDA-approved or cleared tests available, and other criteria are met, FDA can make tests available under an emergency access mechanism called an Emergency Use Authorization (EUA). The EUA for this test is supported by the [place] of Health and Human Service's declaration that circumstances exist to justify the emergency use of in vitro diagnostics for the detection and/or diagnosis of the virus that causes COVID-19. This EUA will remain in effect for the duration of the COVID-19 declaration justifying emergency of IVDs, unless it is terminated or revoked by the FDA (after which the test may no longer be used). Performed By: #### C VDTBH #### [facility] [address] [place] [address] Dr. Angus Hernandez CBC AUTO DIFFon 01-15-2022 BASO # 0.1 103/ul Normal 0.0-0.1 [facility] Comment on above: Performed By: #### P THINT #### [facility] [address] [place] [address] Dr. Angus Hernandez Basophils/100 WBC (Bld) 0.6 % Normal 0.2-2.0 [facility] Comment on above: Performed By: #### P THINT #### [facility] [address] [place] [address] Dr. Angus Hernandez EO # 0.0 103/ul Normal 0.0-0.7 [facility] Comment on above: Performed By: #### P THINT #### [facility] [address] [place] [address] Dr. Angus Hernandez Eosinophils/100 WBC (Bld) 0.3 % Critically low 0.9-7.0 [facility] Comment on above: Performed By: #### P THINT #### [facility] [address] [address] [address] Angus Hernandez Erythrocyte distribution width (RBC) [Ratio] 12.6 % Normal 11.0-15.0 [facility] Comment on above: Performed By: #### P THINT #### [facility] [address] [place] [address] Dr. Angus Hernandez Hematocrit (Bld) [Volume fraction] 36.2 % Normal 36.0-48.0 [facility] Comment on above: Performed By: #### P THINT #### [facility] [address] [place] [address] Dr. Angus Hernandez Hemoglobin (Bld) [Mass/Vol] 12.2 g/dL Normal 12.0-16.0 [facility] Comment on above: Performed By: #### P THINT #### [facility] [address] [place] [address] Dr. Angus Hernandez IG # 0.03 10e3/ul Normal 0.00-0.03 [facility] Comment on above: Performed By: #### P THINT #### [facility] [address] [place] [address] Dr. Angus Hernandez IG % 0.3 % Normal 0.0-0.5 [facility] Comment on above: Performed By: #### P THINT #### [facility] [address] [place] [address] Dr. Angus Hernandez LYMPH # 3.5 103/ul Normal 1.2-3.8 [facility] Comment on above: Performed By: #### P THINT #### [facility] [address] [place] [address] Dr. Angus Hernandez Lymphocytes/100 WBC (Bld) 39.9 % Normal 20.5-60.0 [facility] Comment on above: Performed By: #### P THINT #### [facility] [address] [place] [address] Dr. Angus Hernandez MANUAL DIFF REQ NO Normal [facility] Comment on above: Performed By: #### P THINT #### [facility] [address] [place] [address] Dr. Angus Hernandez MCH (RBC) [Entitic mass] 30.3 pg Normal 26.7-34.0 [facility] Comment on above: Performed By: #### P THINT #### [facility] [address] [place] [address] Dr. Angus Hernandez MCHC (RBC) [Mass/Vol] 33.7 g/dL Normal 29.9-35.2 [facility] Comment on above: Performed By: #### P THINT #### [facility] [address] [place] [address] Dr. Angus Hernandez MCV (RBC) [Entitic vol] 90.0 fL Normal 81.0-99.0 [facility] Comment on above: Performed By: #### P THINT #### [facility] [address] [place] [address] Dr. Angus Hernandez MONO # 0.6 103/ul Normal 0.3-0.8 [facility] Comment on above: Performed By: #### P THINT #### [facility] [address] [place] [address] Dr. Angus Hernandez Monocytes/100 WBC (Bld) 7.1 % Normal 1.7-12.0 [facility] Comment on above: Performed By: #### P THINT #### [facility] [address] [place] [address] Dr. Angus Hernandez NEUT # 4.6 103/ul Normal 1.4-6.5 [facility] Comment on above: Performed By: #### P THINT #### [facility] [address] [place] [address] Dr. Angus Hernandez Neutrophils/100 WBC (Bld) 51.8 % Normal 43.0-75.0 [facility] Comment on above: Performed By: #### P THINT #### [facility] [address] [place] [address] Dr. Angus Hernandez Platelet mean volume (Bld) [Entitic vol] 10.3 fL Normal 9.5-13.5 [facility] Comment on above: Performed By: #### P THINT #### [facility] [address] [address] [address] Angus Hernandez PLT 266 103/ul Normal 150-450 [facility] Comment on above: Performed By: #### P THINT #### [facility] [address] [address] [address] Angus Hernandez RBC 4.02 106/ul Critically low 4.20-5.40 [facility] Comment on above: Performed By: #### P THINT #### [facility] [address] [address] [address] Angus Hernandez WBC 8.8 103/ul Normal 4.0-11.0 [facility] Comment on above: Performed By: #### P THINT #### [facility] [address] [place] [address] Dr. Angus Hernandez PROF CHEM 8 (BAS METB)on Anion gap [Moles/Vol] 12.6 mmol/L Normal [facility] Comment on above: Performed By: #### H H #### [facility] [address] [address] [address] Angus Hernandez Calcium [Mass/Vol] 8.6 mg/dL Normal 8.4-10.2 [facility] Comment on above: Performed By: #### H H #### [facility] [address] [place] [address] Dr. Angus Hernandez Chloride [Moles/Vol] 104 mmol/L Normal 98-107 [facility] Comment on above: Performed By: #### H H #### [facility] [address] [address] [address] Angus Hernandez CO2 [Moles/Vol] 28.6 mmol/L Normal 22.0-30.0 [facility] Comment on above: Performed By: #### H H #### [facility] [address] [address] [address] Angus Hernandez Creatinine [Mass/Vol] 1.15 mg/dL Critically high 0.52-1.04 [facility] Comment on above: Performed By: #### H H #### [facility] [address] [address] [address] Angus Hernandez EGFR-AF SAO TOMEAN 60 mL/min/1.73m2 Normal >=60 [facility] Comment on above: Performed By: #### H H #### [facility] [address] [address] [address] Angus Hernandez EGFR-NON AF SAO TOMEAN 49 mL/min/1.73m2 Critically low >=60 [facility] Comment on above: Performed By: #### H H #### [facility] [address] [address] [address] Angus Hernandez Glucose [Mass/Vol] 94 mg/dL Normal 74-106 [facility] Comment on above: Performed By: #### H H #### [facility] [address] [address] [address] Angus Hernandez Potassium [Moles/Vol] 4.2 mmol/L Normal 3.4-5.0 [facility] Comment on above: Performed By: #### H H #### [facility] [address] [address] [address] Angus Hernandez Sodium [Moles/Vol] 141 mmol/L Normal 137-145 [facility] Comment on above: Performed By: #### H H #### [facility] [address] [address] [address] Angus Hernandez Urea nitrogen [Mass/Vol] 22.0 mg/dL Critically high 7.0-17.0 [facility] Comment on above: Performed By: #### H H #### [facility] [address] [address] [address] Angus Hernandez Urea nitrogen/Creatinine [Mass ratio] 19.1 mg/mg Normal [facility] Comment on above: Performed By: #### H H #### [facility] [address] [address] [address] Angus Hernandez Coding Summary.on 11-27-2021 Coding Summary. CD:[id number] Gh 0bWw+PGhlYWQ+FR4JDYDzA 06koOWidO6QQ6sPSS9NHKE KXFBBTD7DGW7ugAA8LYvnP 2VybiAv NeghnNLfWF30DRd6NLC0bI cwEWhboE8peRCwS7m7HfBk OU83bP35VObeAEFeCjJ2Wf ZpbjsgbWFy B6ypNcNdkWJdEqx+PHRhYm xlIHdpZHRoPScxMDAlJyBz uStoHG8yNr8vZMWsNQGovE xhcHNlOiBj y7xqSUDyQNryFT8qiZslQ1 BpcPH0VEQjz6d8Ob28hAG+ SAQiETG5vRrrWPauv762Zy Lhk1vbVCK1 sOLpPSykWSK0E57ve0X2QS YmSZKbFNC2yEW6zE1ddJal wcwtC4TegIJxXoI9AQJ6aF JtgC3spBtw uiduzD3tZcq+K09TJH1ZLV KJNQ4BHuq0G0WtCxwwlMJ+ KH92MAZuGU27dDFhnZPiv3 ktmFi5SsZn MMAtTGJ1sUsfSVvhd6ZbRS PxP27sfOKjq6D6JWBegTgt oTKrCiQbrQF6cD1qQIhwmm cmj8moarwr Wgtom9uaqy04gG07C61uET zmCOKfLAD9MADkCVSqpDqy id6agQ9rYm8+LNuvc6utn2 gqfGy3SjOd YUBeraLukRoaRAP4l4BvYt 71O6ZwbPksr5NmDti6jr83 jAGvi7I0sTU5XHxmAHIogI 5tYFnaMyH7 GJHwBfYstW51lCGcYQjfOp 0kqNgjrLpqNY2wSOIwdzsz YSCaaF0hLBVtnLKqyJjsAA 4wNTBpbjtm n700HzPuPXK7RTAlkOUhO4 EgnS6jXsAnKLUwHIZjK0Xb oFBtQKtzW984YUbvMmO3KJ InofNnC6Ed HZPbaWqaHpI7m1D9Wb0Fh7 DqurjyNKN2PIssOUBeBtX8 ViGjUmI8W1HqGte3WVUrkG sbRN6tE5Jx LNNjhwqoxzjpvKH3IMKlZC YgzT50yZKlITnuHx7in8O6 q216LDMdBNAuwW25Uu7paU ogMTBwdCBU rQ6yjcizh8qgvujeQeFxAT JnLJl2ZFu8YSCuvQjtJbOd LRL6ZlE9NUS8rEPpdP2tbA vchpbipH3y Oyc+Q11clP0qRCU7FCU9ob ouUPIuosMaFA24AG15U3Hw PjwvdGFibGU+PGRpdiBzdH rkSD5sHxAk k5vtt5SmYVkjN2RrXQQaOA lkWky8GVUbCKQ4mLH7qB6s BEItPRknm4W9jZZ0D3Dcoe Xxoy4et1wa NPFvUUiiT40frMRrd2N2GT ZvmSE1OGQcrAfxEqIgsG45 Oyc+EOPhxMrnf2KqSxeui2 jsj7lxcMv8 GqFdSKKbxmOgmQgeACX6m4 WlXt66N76yFLqiFSCvNEXp ZFCvRIVavRmqfq7qzF6cEs 8+PGNvbCB3 gFK1yS0gCMHjSqO6ZKgeT9 24PsWwdRMcHdaly5kya9qx bWn8VsCeODDygoJkaQmbMO O6v4SzNm14 G11nKNuiRAXpCHFkLQQeCP YylPbuli1dsM7aFx0+PC9j q9bwdn20kJ33sDH+PHRkIH X6kWvxSYpo ICBcsQ0oGDvjNkM3NOFwSi OxyV13uQKtCMdwAg3nsMpf zKexRM2cVKAdroypa477Ol Mjh9ntUMKf jQVfAOxgIKI2L01yo4H9SW OoWUFtCDT0eMO3gA0tyVlm bjogbGVmdDsgdmVydGljYW fgLQbdB011 IHRvcDsnPlBhdGllbnQgTm ShYJq5P7EmGnq3TJLrgEwo OD7nfRXlYTyyQc5otIctaW gkNA9tQSMs hsojk550ReRds3bfWEJzuK AnCJmhYUS7N77ku0J1OFZf YFQsSLJ2dXF5uF5npEftcj ogbGVmdDsg zzMniXuyFSlnRMjsC698QV RvcDsnPkJpcnRoIERhdGU6 SU04BP06vMBgc2T6wGQ1N2 BhZGRpbmct lxpjoQZ6EXXrNSEjmM47Se 0pmAgqWc6sIWKfDLZ6QLJv dEFxT0WnyS7eItGkJAGcRE JmI7IieRWi JEwsL713QVfkTaX0NLWxwh YtM2CyKKKwuZlyLpF6l0Q7 Hu4PN5Z5MK86XC93jRSve9 K5vSL6E1Bo EKYkgilzoghsmBV7OYUfLS MczG86Wk4zjRkoIh8xIFHl OWJ8WEXeaYOsT7QgbG2vIa AjMDAwMDAw Y2VdsAIgQDctC618NTctBd M6ICYalcHkG9VnFDYtlBgg TuQ6c6X4Xd9CBBn8XP76TX 98wORia5F5 rQX6D7KdZUViejeotymefK A8TUSaOECjqY02Cw6dsAwj Wr4qDNElMUI9QTRtaYXmN4 KacF1gXnMn LOHiYOHtB3IlcEAmFFkiH0 63LSxcJxK8NHTxfjJfQ9Vq YGIgmPlhYzF9j5I8Dx3GYT DyMS41JTV5 mDA0SH36XA18Q7ZuWbtbuS FibGU+PHRhYmxlIHdpZHRo RPojMWLzCtNrxHcrJQ2oTu 9yZGVyLWNv vFyqjMMzLwHju8sgDRObXS kaJG1zyNksW5FpoOZ2NHTt r9n7Ek58L29uF5KqgCL+PG DziKZ7xIX5 mZ6sEeKvRmR3FOnlV732Dn BeoDXdApmbl6eng0mloAu0 PuH7NBAudaOynEaxXAG0i3 LaSd35K95i IHdpZHRoPSIxNSUiIHZhbG lpji1ayV0fBi2+PGNvbCB3 gIO1oX9mGbOcLhM1YYtvS4 49InRvcCIv Cntwx3znt7bcgZd7JpLuVB HrfgJclXxpHTW8e6SiLo82 A0BfnUtdn6NzEzp4fn21qQ Hsw0E6nIL9 C5KaVMUlcrajrRUtpVtoNX 9oJRZnhqzuYNZztZ4rDYGj D2v8UeAlSnH5WJjpY9Waji G4DEDhoBMw DNiuYTE4C04gg4E3FQFxCG RoBUW7kJB4tG0ccAcxaqcx bGVmdDsgdmVydGljYWwtYW olJ725FKFt qZnqTSMmqW6jPMPnkMKdbB qqLO3eODZuxwonXxPDKEQJ ENAXS9w5S6ZhInc4JUQglL thKG2djHVe RFrzWo2zwHbcfJujDE0pDI FkklivFAPciD6kMQMxoWOz qYqdTT0mHKAckuikh485Xb RxZDN1UNWo dRSpI0KypK3hLpZrLKRxTG KsW2SulBPqQWgdQ514RRyn DvQ5EZKdixXcX9LhRJMpnR qaSeB4n5A6 Xg2uQy8tZO1oVOC9DQ69XU 32eKFpz4Z6bAR6M1HaULYc arceykqsaQS2BGQcSTYzpA 47cGFkZGlu Us2fd0P0h156OBLlMGXirE 12Gs9tfCigKXKywNMJhQ2y srpuu5eluqpmYjXiTYUeRP j0EEx2WXSd aMefEiWoANO6WqC7RKZ9nW BhhS6efExpgjwhpI1wGvk+ OFBdUGRexsV4Q2FiUwj1KS RqkPwsHI2j pNEmRDzkLa7wkRecnPwfCE 6xMUGtydylKSPmfJ8vGSHg aUCejKxsPE0aQZOrjduzm1 33SlIhDAM4 CAQecZPbI0FmrL6aRbJsDK UmPHZdN5SlmNBeRRfoV661 PSygCrK3LSNcbiByU4RgTH FsaWduOiB0 x6C8Uu8IUK5cwWN4U9PoDn q6WXMzcUgyWP1boAZqRWzg Rg4zbWadwMpaCY0gMNDnex xsHOEgyP8s TYUhlUCztNcvAP0lPGSljq ecd426YvRcPZH9YXSvmNWh N5TilR1nFtFaMCGwFZMaA2 RleHQtYWxp Q146QEllBhK5UPTlbtEoF4 CdQNNydXltYlL0u0T9Vb6P OTulVO1ikjNjDL0dtwG0G9 RkPjwvdHI+ XJ46PTUoYT38sIByyZSgj1 todPb7UrHuKGUuGLD0gFnd FZpnt6RoMOBhH93jjPXie7 J4IEJqcSbt pRZrIxDdrUJ7eF7zAOufyo mbc3pxusdqGmyxb2gdhq34 lR05S72hCJwyDPPsBBEiYX UiIHZhbGln io2kuZ6fJj7+BDRokDO5nH C5bA1qCkJwApY6LCpuI613 DdQzuCZnPaknv5iqh5amgR b1YxIcVBCe esRomLefWWS2v4ChHb68K1 9sIHdpZHRoPSIyMCUiIHZh mSlzum8bsR2gIw5+PC9jb2 uauy25vA13 dHI+YAZzYVY7hMixPTljSR AkwT3rAMwjCaS0PRXuDrYl tN31qBUfJMxlDc0rfPvkyG ycKS3wOVFs dlqwb811GvJpi4ibMGBgoU TeUVyfPBV2I20wh3E7UASw CCZgPFD4sHA7bA5ksAltpz ogbGVmdDsg rtOzsSyoVJogGOpvY167XW JuqAqjKvXijLDfR0kzsxWY ML4aFkzmjYL+DFBaRXR0mR xlPSdwYWRk wN3xTZKgF8z6YoLuYmB4BH meR2PpviY6EUInvEIpVGQh aYBOyA6dullxx4qoefxyZh AwMDAwMDt0 SNu9MJKffRqlZqWcFQV2Ut E8YKP7fGLcgP1jgTfqaind uA0rCes+RklOOjwvdGQ+PH SmTSE5gRkn UPckFSZdsG8uWYHrK9m5La HbHzS9RGftC8RstnY4VOTk sLBsZKQhnTMUhD9eklicf2 xvcjogIzAw UWUeEZl1SKf2UDEfnZvxHr IpYOD4QqY5MUJ7nYHyjD7j rVhuollmzP3lWrp+TVJOOj wvdGQ+PHRk QHP8mLnsRVukDRFpvW4vYO XcX7v1OkCfEyO1NSrpS0On gdS8GVTgxBHaAOHdwTHMnV 0rsgcpo6mt sceiYqAdVEFkBXi1QDz4UP BupMpqZkJfENX8TaJ8YZC8 eWQjkQ5jxKukcdvwzA8eKv c+OSD1CIU1 DK62VT91D5UuVasjeASapW U+PHRhYmxlIHdpZHRoPScx RJXqJiRvtMwiQK6vSe0vQY VyLWNvbGxh cHNl (more content not included)... Normal [facility] Consent for Treatmenton 09-02 Consent for Treatment [id number]#1. 00CD:127 Normal [facility] Office/Clinic Note-Physician on 09-23-2021 Office/Clinic Note-Physician [id number]#1.0 0CD:127 Normal [facility] Patient Correspondenceon Patient Correspondence [id number]#1.0 0CD:127 Normal [facility] Patient History Officeon Patient History Office [id number]#1.0 0CD:127 Normal [facility] Coding Summary.on 09-12-2021 Coding Summary. CD:[id number] Gh 0bWw+PGhlYWQ+LQ3MEUGoN 16tfIZeuH3DA7zNMU6QEBS IIKUFHI1KKR2ysIG7UMchW 2VybiAv BxxwxOLyEG24PEs8CDD9oN abDIkrhQ8ivIQqW0l5KzQb HC28rA21LEnbBBFkByF6Vv ZpbjsgbWFy S2xcLoKqkMFzFwy+PHRhYm xlIHdpZHRoPScxMDAlJyBz nVisHG9aEh8sAFBaCXOtrI xhcHNlOiBj y6ikJJBzZBorPD9jaFkkZ6 AnjAP4LCEcf3f1Zi47wUR+ UFHfCVS7nXrwEOelm894Ey Egz2mtLQP1 lIHfPHwlDCZ3J95ca3J8RQ WoKFKzXDM1kAW7dR3ayNju sehzH4QcfCYoVsE5LXG5tH VdeW9bzTzh iwunqN9jKbe+U29LBI1TTT ADWN7LGre3D8IrExmfpWC+ HI02YQQpYJ20wDGjrZGsg6 buhBn9BcWk KBRkJXW9eIzpHKkfm4AcIJ VuH06dxRSvr4A5XANqyRtg zQXjNePweUE0wJ7sMYnciq aur5uqmyum Kvlsi2csgi06rK84D79wCT vwBRYtHCD3TUBxSWSvfMcv da7fnK1vJm1+OOrba4cxf6 ibsQb4VyDm KMYjmfJozMjiUJG7s9ZsVo 38U2CumVevv0LhAyc7zq86 vVQmi2M9eDP2YUkrFDOyjZ 8fHGdlGjN0 ERLwLzJpsE22oVBeXJvjYs 4acCueeXzyLD7rCNAkkrdv KUZddM8iIOZhzTMvzUstNP 4wNTBpbjtm u492OyQoISI4AEPnlLLxK5 FysJ1uZwVmNVGnLEGxL1Re zNHcOMqsS581VGzcYyO1SJ VqjpJdK9Xz XDGsdHcoDbW2r3A8Ot5Bm4 YgdvvlLTO8NXvjGXWaZgOy CoZuAlT5M8TqSnt7IJOcrO yxMO4lW6Et JCHmjxxbjegteDS5BELcNN VenF27nPIvJTosFq1xa0W5 s671NHRuSEBktC64Gm9usJ ogMTBwdCBU mO9kuwlwp0pivqfcFhAdJU DlATl3VFu2JAEmmRzhPqUn WIO4OqE9AJW5gZGeyD3zlS yhauquyG6u Oyc+Q59vkX7yVKM6QNJ9dl cvJDHrwhZcYL14QU44C6Vc PjwvdGFibGU+PGRpdiBzdH csDR9jQrGa c3gys5BqCCwjS8XoMKHqPA spFxl5QQYdKUT2jYV1rM4e YPZlEXydg5Z2vZN7G2Npva Ruin3tx9jj QRJvPIejG19ptINqf1F2OH QphIE3HAQpvCjkPcDiwU54 Oyc+PVNfaDotm1ZvJxkqc6 few8vliLy3 BdWlBLYlfsOyhIqdUZR5z3 SiBa16P62kNVvoJXNiQLQp TLDkVQIvdWursb6evK4cUk 8+PGNvbCB3 lPK7vL4rEYXyMeC5FVqiZ6 66NsSvkTJbVukvl2glv0sz aPz7UmPwXQToteRfjTrlMA S2q2BoEr07 S41iPLanXVPnFFYuGXYoSK DsmLqqst6vjF7dMe1+PC9j j6ambc26mW24cQE+PHRkIH V4tTjlKQif XHKhsA0vPKuoVfO3NBDvTj PimY34iTDiKKswXn0tgSkr fHywFC5pNNBwxcvsc138Gw Efc3hoDPTj qCVxOAjgHIK8L50ig3C9LW PeQDJjIUJ1rWO7qV3baEja bjogbGVmdDsgdmVydGljYW qsHBjoQ874 IHRvcDsnPlBhdGllbnQgTm CfZPr1U3NpIbc5LNVzrHoq SR1cyKJyOUbjUb1ipSpdmR giWY9wTKEl vnist374EzYbj3kyQNNqnX ZtOCepQAM0Q24dx0U2YGJi MWCrYJO9yUU5pK1skLgfiw ogbGVmdDsg kqWuhNpkHMzmPFvvA102JQ RvcDsnPkJpcnRoIERhdGU6 ZE85JL79uKSad5F7hDL2H5 BhZGRpbmct hanwdHD3BEUnCGPzxR09Yv 0yeVleYp8yMFMvGQB8ETDz jMItS1HipS5uOfFxSTNcPO WfC8MjkVJv NSydQ488BVzlQhL2MPDmqy JcY5EjFRLrcWraFyS2h4M6 Rs7TA5R7JK24TR30zVMnc0 V6xWC5R4Co ZKHeeuqyfiacmTT5LOVtPM MfgR99Cp0zrPbeMr6aFNDc MYW5FBLdkJKuS8ZhyM3qJm AjMDAwMDAw E3KpnTOhWPzvR236BRgnBb D5GYGfezSmN5GsGLOlgPql NgN9f6C2Zo9WHFk0YS57PV 82zUFhy6C5 fEZ6W4JcZSOywjkmdsogwM E1FAXbCSKdgQ45Un6pnVsb Lg1yHQCpOJT5ISXtkEIfG6 KzlI9xXxVv AUByTTZpN3MmgTVyQHktY8 96UXvzEnK4BGFqrcEeM1Rf JZDnwCysXgM3e5U0Ra2DYI FcAV91XMR0 wTU7ZL23TI94J6MjFqetrK FibGU+PHRhYmxlIHdpZHRo PRftJQRhEpOzkWbkDI1uZv 9yZGVyLWNv sQnorEYrFgFbc0dkZSYoVI liMQ8msDvuA3FdqRT5XBLm t9y6Gk84O46aG9TjfLN+PG JjbPK8pVP6 rL2jPdOpLrN8SRvkR268Gy OabPZlKxhve6rng7hdeRc9 RpJ2XWGhciTmiQmgRYP3j7 NwGh79O27y IHdpZHRoPSIxNSUiIHZhbG cmdw8bkC3bPu7+PGNvbCB3 kJY9eS8tAjOxYdK9YOezC3 49InRvcCIv Wfjeq8fwk8akfGx3NxKhDZ CgfqHwjJhxSLP0h3EeAs73 J4EzvWmze4TuKhu8ef18gE Lla2A5hPZ0 H1KmCYPbgohqnHHmgGpaUD 9xMFGdawqyJMBimN6nGVLq B3i2IdKcXaJ3WHleG7Pdtc Y8CARpfPKl DRxeXUX2T87il2A6SDMsMG KgTJM1gVG3zW6tbHpvkpeh bGVmdDsgdmVydGljYWwtYW tnM919NZVz nVmjHSMolH2mUUHrsVPuaJ agZP7cYZLbsndrEeSLCAAD RJDDA5x5Z8JkZyo7KCKmaK oeXN6qwPXa UFumXp8bnTrraFxpOY8bVF GwymiuSADqoG3sQBQodVKq yUduCI7zAJHbndrlv695Ck XeCTM6ZAUx zPJsC6JoeD8qDhYeESGtVA FfZ6LnkTBvJUxjB221ANeh XyH8KUNlinYvK3KfUQQcsK fwSqJ6x5T8 Lw9wJf2wWG5aERG9EB42UA 47kUAap6T4sLG4N4DoAOTc vzdhqjavjHY0PWFtPZGsnS 47cGFkZGlu Ye2dc3J7j152FAVkKEIlgS 12Zv0paTjxXTTppBFEfK5u fjzxu4jwavxgOkWhQQKwDU j3ILu9OCJu bZscQaTlIZR4YkU0VWJ5xV EfcD2guNldbqhysE3oGkr+ NKUpOIOksvQ8P1OxTxk4JP MdgQmzXT1c cXQhMJqqZq2obOturFldHN 6fYRXnlrzqHQBurW0nHMXq aMHleWroEC1qQHRkmullc4 28GpDfUGF1 NHQanIZqV8HufA1gEzFbJO VnIAJgV7RqxOGnFZlkS375 CWohAtI0QOAumjElV1EvZT FsaWduOiB0 q8D9Yc2RRI6hqQI3M7RoPj i4OJGnqVumUB8fuCAeAJci Cr8hmZozbPtdXB5oVKHssk nqPCNngJ6n QBYqaHFdrUswAA2hVAOlvn gnw507ZqPeYIJ2LEVhfJGx U6NiaO6nFfZzUCYuJFMbK5 RleHQtYWxp J814CMbiOaP8GDYmweQtQ3 DgWENibZwtDyT6s4K8Sp6W XMzvKA1baaUjGO1nbdP1Q1 RkPjwvdHI+ MI78DFRxTZ64cPEwgQYpc7 hqtPn0ItGqSLPsDDK9kRph QMahh8OpBRXhL72uoJOjn3 L7OOUfmRvq fTPbMvMihKU5pK0zGCbenr lyf4xtakmtNbfqu8upvx32 cY90X61hDNnpULJdHNElET UiIHZhbGln ud4xoW7xNr3+INPebRG8eA R5kA2hBvReHmD6CHotT205 OkEcpETtSixbj4nnh7kmfW m9SaNoXCPn ejXfvHocBMT9n2ZnSw05V4 9sIHdpZHRoPSIyMCUiIHZh eFkkbi3ewJ4cWy5+PC9jb2 dwrg80zR93 dHI+FYEvUHN3bRfiNWmoTJ MouW3tOLvxXkX8KRYbUjRk wL07hCUhHGfgFd3zzKflaV agOP7jURLk lygbd088BdVmq2hsLVSgiP JmTVtrMVG2B75xx9O0ZOCd TJAsQHM6oUW7pA0uwMnpwu ogbGVmdDsg euHhdTfkEQsiYTdvR972ZC TmfLpoAuZoqQAgE0mlzvRG GO1cPuuuyWK+AIUbIKB2cD xlPSdwYWRk fX7pZUEuQ6a8HhXiQwY5AT yhG2HeqbF6AYCrjPSiPQUn sTNDfB7bqhemk8ruyxkyNk AwMDAwMDt0 PMo8VDMklJvrOuQsKHW7Sp T8OBF6rOGvgI1ipShenvkk cI5dJdl+RklOOjwvdGQ+PH BdSKB8kIhv KPodYEOdmP5eKOBxO6j5Kj LdVoI5ZNijN0XprfU8PCPs uUCxLCSasDSUdX7ntzdtx9 xvcjogIzAw LXDmNKs5XFe2OCCzaUhbEt ByHOP8AiU7THP1yNZkuH1k fAzodwuzlM5fJev+TVJOOj wvdGQ+PHRk YEG4oYmdYPgoDWXekU7lDM DsC5l2QsLmIqF5HXxiX1Zz seS8DROyfLAyMHDkyMXNuF 8frdmpv6zd kaawPqJmMPLtCEc0CJg1ZJ GuvMqlTzFwFWZ9XmV5PTL6 zMLyqN7ynVioefrdcH5pMe c+FNR8GKN2 VU84QQ96Z8XjZurioEYcnX U+PHRhYmxlIHdpZHRoPScx DGGyAqTbaBehBE2pEl1eYJ VyLWNvbGxh cHNl (more content not included)... Normal [facility] Coding Summary.on 09-03-2021 Coding Summary. CD:[id number] Gh 0bWw+PGhlYWQ+SA4UVYJdU 70koTFpyX7CP1oXOU8WYGZ SQBJPHV2OPL7xjGH7PQzcJ 2VybiAv EmlrgGBoNX62LEe8IMH3zX zdWOnofW7jtLTfA4r4JrDs LA92kE98BKsqNAVdUnR0Ct ZpbjsgbWFy S9tlTqOtjWJeTnx+PHRhYm xlIHdpZHRoPScxMDAlJyBz nGrmDZ8fPc6oGCVxZCEhpQ xhcHNlOiBj t7cmSPYfCCvkWY3ruEzvN7 LiuCJ2KUBqg0i3Gt19yOQ+ WJGlZIG5iMicBQaih516Af Zqz7hmAZR2 oGDrAHzfJGA9A12fq4V1TU ZyMVSlOYU0eFZ3fN9mqRtq jhgyX1ObqNDhEzW1RJQ2wG YpzA9xfHcs nblzwH8uLoh+W63QSJ3QMZ TPUR9LYsz6X7KhKdxquJK+ YT05NWNwCC81wKPklZSue9 iffHn2RoUu JUDkCGZ8sArjCGuql6VoME MeC34ebZEns4N9IKPdfBgy vOOnHlOcfKI5vY2vTFdjys eng4wahzdn Vmjei0kazl60jM21H14lRX yhMPCzVUF0WEAxKQIoeTop jg8waY0fBu1+GAvno6ofy6 ugxJv6RtEx NXPeozAgwIsmWFI5k9LlUt 54S5VdfMxpg4SuAsp6xc65 nKEty2L4qWR2QMajPOSujV 4gGYtkMzR0 FETuPqJtvP25zTGtMBvfOe 4ipFmctZvtRO8mFMCaawyd JDUtpN3yMBJtjBXihMheEZ 4wNTBpbjtm u842QtQuJLR4KYIzxOXoA0 HnjQ6fKtDqXVGoYFNjZ9Sq oWLbVAawD444NVisXpB0RK AzmeWeU3Nz CJEvfFvuZcC8e3I1Qy2We5 AdmfuhOIT8NOjhTAWuQgGp QvNdPwE9U4CuTuw7HDAknN wtDA8aN5Zm HYWclstebgvczTG3HBLhQL YfgJ06zOPaAJuuOu0yh3A3 x334ORBnOLPtmH41Yw5yeD ogMTBwdCBU kG2qpkbye7dwhvrrTqAsYK KcABd0ACa5GGDxiRqnOnPb TAO7SzA9UPU8bQAyuI3ofH haoiztfR0q Oyc+I09ypJ3nPNK9HRP5cj qvHEVpnoBpDP27AT23K5Lz PjwvdGFibGU+PGRpdiBzdH pyAF5rYmHt l4uth7YlNApzP1TtDUXcYE waZgb1CFZkZIR3dKY3hC1y QXSfDAtvs8L1xJE2N6Pixj Dbjx8vt0eh ZHKiNSpyR87wjKTaz4H7NI ArfMY9GALdcQwwLsQgrC15 Oyc+BSBwpHgwj1ObQrjwd9 scc3kuqAu0 LkQyZMWezhZjgLchGMP3b4 CuZb55W02rCJzuGFAcADXr NLFwOAWktHpfvh6lrR0dGr 8+PGNvbCB3 iXL2pJ7fPIVxBbG7ELllY3 39AkWaqEZnOfpiq8ojw3is fQb5OrXiBTNjalOlfRwxZV J3a9SfVk88 M34vDCkvGWMrHYRmVRHeFP UokIjenk1sbF0ySy5+PC9j j1ozqy36xR35rPH+PHRkIH A6lDsdEYxu QNBwjH5vXMupJeE8SYMkUi DvrQ04sVMgTNrpNx0bzNxx bRxrUT1xERZygxfbz372Qk Tpy0tzSXIs cOYhRKngPBY4M32yf9Q1KB DpTEImPBN2xAY4jM2hiLvk bjogbGVmdDsgdmVydGljYW jdDBzmL209 IHRvcDsnPlBhdGllbnQgTm LuQPj6Z4HcJku5YVFqmXri OM2rgGNnVWibAm0wiLgulB wuGO2kTQNe ycler547JhRpl6klTIGrqP RrGNxpXQI0A21po3B4MQLv CIUoOYQ2lKC0eN2boXymfr ogbGVmdDsg miCxwRmvBGpvIGjbM487LL RvcDsnPkJpcnRoIERhdGU6 VR95LC69iAVqg5Y6wVC2H2 BhZGRpbmct zzpdcDD3SHRbNXDobH05Dt 2lpAfcPr0eWIFbUAR9RGLc jERqE6WcsA5bBfMiVOLvVP PoZ6XrwOBa AVrbA307ZBakUfX0LDRcaa XkG2SiGCReoDkzNtR0i3F2 Tu6ZB9B0DC33SS43cOVhv9 X2nLN2Y2Pl ASSvnlxbjazebLA8ICUuSH IwyN72Ov8ihWszHp8lDZNe KIP3DUCmbMEiI9ZqjG5uRa AjMDAwMDAw M5EdhGVnRQkcW920TIxtFr I9EQLfujJfL6OpPYBlxSjt XxE5r1X8Gq8BAMo2FE26ZH 03tBHvp6W2 eON8Y3HnJNMebiobbmimbQ O1EZEsXRVyfR60Wm9xtWwe Ty9wKDVsUWE3EOTlsZJdP9 IlzJ8zFoWt FKYpESMfK0EpdVKoDDliW6 34WXzjGgU7HQHeogQqU5Qx PYBsbNaeBbV7x6X2Cy1JQU UzHC94QKH1 uJW2YW01VP08N1BsBftusC FibGU+PHRhYmxlIHdpZHRo QFerIPAzMnVacGpaOB0aHj 9yZGVyLWNv qHcbyBWqLtBsj9ygZBUnRR abLP2utYbsR6VrlIX2JKGk h8v4Jr52I10hA8TawGS+PG AygSW2xSM8 tE6xSlLjGrA9BBrpP133Be BnoVIrUarfi9zuc3xzoSu6 GyO0LBVuthUgkKdzZRS8a5 ZeDl33Z19z IHdpZHRoPSIxNSUiIHZhbG jmwt9tfX1vLj1+PGNvbCB3 wYD8sV6mIuLwQiT8DKpcO1 49InRvcCIv Jlemo8jrs0ibsDv9AgYgGR LzwcXptNjeUMG0y5QgWg15 H4OofGsub3DrTwm8rj71eJ Enh6U7wDU4 O3TbPIUtbpuilOQnpVxuGF 7zHRSjxoihRNWvcS1oCWHr N0j2IsIrReF1HQjnP8Rumj G2QAWvqDXn MWqwOWO9U56je0X5OZSgPH MoXSA8eWS0yH4moVkvmimw bGVmdDsgdmVydGljYWwtYW kdY439UBRi kQaeISKjcD4jMAGkwQYnnV piMA2bPKZyffnyCdKCFMAG HRKSV5v0V0UlEph7LNUzbL exUZ3apFSd CGfhDt6jwBuimIhrAK9kTQ GptplaAEHbuF7ePRZguLHh sSmaMB6lBRJxbpbwk512Lg SvASP1CQJi jSSdC4KubB9bBsRkBYWvIE TvN3FkoZFyBKpoW868SSpi SmP6KVTahyVmS5ToUSKpgN hsIgL4m9J2 Dm4pUh4aOG4rGJH2MI22KN 24bHGgu1X0fUF9A5XlAYMz tmkmlmlecDM5EHXpUBXidH 47cGFkZGlu Pw8js5U5q004ENFcBPWjsM 74Uj0voYlcBDSwfRWBeS3r ehzqj2lcbtlvCyWtWKWpWR l9CLs3AIJv zDjkKgDhBIB9XwU4ZRE6rW VizB7gaAlmwtzakL2kNem+ GWBlRQKijoW6K7XbQug5JG RcdZobPC4k fHJvLEtdXg0chBvgpVizLR 0lPASslinmBCBlbI5sPEMa yQJmuBmvEV9zFWCdndqlk7 61JmUxPDV3 PYVibALcE9UguD2mLpFlXX UrRPJhB3GxrNBfVOlnX943 ZLovUtD0RRVshxBsP8QrVU FsaWduOiB0 t6F0Bg8RSL8xaME2F3VxGh v6FCXkpRacPF1gdJDlJRyh Jo0jlPclnXqbXZ0qWUFsan brOHOjeK9i GDHzfVZqaVggND8nVOVppk ptb132PlInXXQ3WCFhqVRk J6WeiS1lHbPaYLGyMEMmA6 RleHQtYWxp K654GQpbIgS1NBJtpkNkL6 ZmDBKewNijXfS9g8Y5Qi3D YZdzCW1gfgOeAB9ahqO2J3 RkPjwvdHI+ AM55OCXcOK71uVJxtHWbw7 thtPu7HmKxAUJtUHP6zYhr BMmlj6PdLKGnM74akWBjo7 K5DKTgnSft pECxQfMtuYT8aB5pOHojmr ocx6czhzeqYwudy0wvnl11 yC52U39zSBeiKMCnQMCsRC UiIHZhbGln yx5pyD4hHx0+CYNjnUD1cP J5gA3fReFvDuR2SYztY972 YtQljBXbGayly5spa7pktJ i5CbPaWKIo jmLpkOliGTG1g5WvAp31E7 9sIHdpZHRoPSIyMCUiIHZh wBttbq4ttF9lOv2+PC9jb2 wqdp87hS58 dHI+NPWqFFI1bZboRFwgPF ZbaA6fCCgyGjB1QKPdPdKe gM66qWFzEZdyJu1ztQzjjF trSD2yMWVs hptdd631AwHiv6mlIWFpcV IvEPtdDUU6M86wd7D9PXBq EEMyNLC6gXR7oQ5cmRviwp ogbGVmdDsg vfHdkIxqKTakPBkcF166HQ OocIuzHdDkhGZaK8ssjnLM PX9gOoyazAU+PZXcKBR7vO xlPSdwYWRk oE2oEMRsC1i5CePiFeO7RF ulB6VddqI4AXAtsGTsTREp cUNIlX3ioxiwo1rzdhefQs AwMDAwMDt0 WMr0JDBmxLftMgZqTLR3Mz Z1AMB9qFTuzT8fwRtyfvcv kE1kBdx+RklOOjwvdGQ+PH JtHLQ2oIce WQvqJIAzsS6gXGVfN3g5Mg QvDwI9JApsC0UhalB4MNHq vORzNEYybCYQcB3eoxvqj1 xvcjogIzAw AQOtYSx3WGz9DMWndAwaNu SrDHZ4XyR6XCN3bAQmoT7t zXcfclnpcA7pEcb+TVJOOj wvdGQ+PHRk WLQ3fWwwXFosDZKynF3uWS NvU8d9YvYdDaW6FHnrJ9Ow wgP7DZIcrSIxMFLfuEOKgP 6cmcosd1uo moatKjUdGODjIFi0MXd9BL FbyQwaWqQbPBI2HcW7JCO5 sIEswD4irKnqyfxeaL5yPt c+WXE0ZSU3 YF60JY33W2OuFsqhmCRhcJ U+PHRhYmxlIHdpZHRoPScx XNHhBpShpCdgTL8qPx9xLH VyLWNvbGxh cHNl (more content not included)... Normal [facility] Consent for Procedure/Surger yon 09-02-2021 Consent for Procedure/Surgery [id number]#1.0 0CD:127 [facility] Consent for Treatmenton Consent for Treatment [id number]#1. 00CD:127 [facility] Discharge Instructionson Discharge Instructions [id number]#1.0 0CD:127 [facility] IntraOperative Documentson 1 11-02-2020 IntraOperative Documents [id number]#1.0 0CD:127 [facility] Main OR Intraoperative Recor don 09-02-2021 Main OR Intraoperative Record IntraOp Document Type FTPM Summary Primary Physician: Cole Hidalgo MD Finalized Date/Time: 09/02/21 09:26:26 Pt. Name: MYRTLE JONES/Sex: 1965 Female Med Rec #: [id number] Physician: Cole Hidalgo MD Financial #: [id number] Pt. 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 Time In 09/02/21 09:21:00 09/02/21 09:21:00 09/02/21 09:21:00 Time Out 09/02/21 09:26:00 09/02/21 09:26:00 09/02/21 09:26:00 Procedure LUMBAR EPIDURAL STEROID LUMBAR EPIDURAL STEROID LUMBAR EPIDURAL STEROID INJECTION(.) INJECTION(.) INJECTION(.) Comments Last Modified By: Emerald Ward RN, RN, Emerald Shaw RN 09/02/21 09:26:12 09/02/21 09:26:12 09/02/21 09:26:12 Entry 4 Entry 5 Case Attendee Glenn LIZ, Evelyne Calle RN, Cole Armstrong Role Performed Staff - Other Scrub - Primary Time In 09/02/21 09:21:00 09/02/21 09:21:00 Time Out 09/02/21 09:26:00 09/02/21 09:26:00 Procedure LUMBAR EPIDURAL STEROID LUMBAR EPIDURAL STEROID INJECTION(.) INJECTION(.) Comments Last Modified By: Emerald Ward RN, RN, Emily C 09/02/21 09:26:12 09/02/21 09:26:12 Perioperative Protocols FTPM Pre-Care Text: Implements protective measures prior to operative or invasive procedure, confirms identity before the operative or invasive procedure, verifies operative procedure, surgical site, and laterality Entry 1 Procedure(s) LUMBAR EPIDURAL STEROID Patient Identity Birthday, ID Band INJECTION(.) Verified (select at Check, Patient least 2): Participation Consents / H and P HandP, Surgery/Procedure Operative Site Present Verified Consent Marking Verified Surgical Site Yes Laterality Verified Yes Verified Procedure Verified Yes Correct Patient Yes Position Verified Availability Equipment, Medication, Prep Dry Yes Verified (If X-ray Applicable) PreOp Antibiotic No Time Out Emerald Ward RN, Given Participants Luc LIZ, Gwen aAron MD, Cole Anaya, Glenn LIZ, Grant Sánchez R, Ralph De Oliveira Time Out Complete 09/02/21 09:22:00 Outcomes Met? Yes Last Modified By: Emerald Ward RN 09/02/21 09:22:40 Post-Care Text: The patient is free from signs and symptoms of injury caused by extraneous objects Allergy Information FTPM Pre-Care Text: Verifies allergies Entry 1 Allergies Reviewed? Yes Allergies Reviewed Self/Patient With Outcomes Met? Yes Last Modified By: Emerald Ward RN 09/02/21 08:18:19 Post-Care Text: The patient received appropriate medication(s) safely administered during the perioperative period Surgical Procedures FTPM Entry 1 Procedure Description Procedure LUMBAR EPIDURAL STEROID Modifiers . INJECTION Surgeon Description L3/4 LES Primary Procedure Yes Primary Surgeon Cole Hidalgo MD Start 09/02/21 09:24:00 Stop 09/02/21 09:25:00 Anesthesia Type None Surgical Service Pain Management Wound Class 1 - Clean Last Modified By: Emerald Ward RN 09/02/21 09:26:13 General Case Data FTPM Pre-Care Text: Classifies surgical wound, implements aseptic technique, initiates traffic control Entry 1 Case Information OR Pain Proc Room Case Level Level 2 Wound Class 1 - Clean Specialty Pain Management Preop Diagnosis M51.26 Postop Same As Preop Yes Postop Diagnosis M51.26 Outcomes Met? Yes Last Modified By: Emerald Ward RN 09/02/21 09:22:54 Post-Care Text: The patient is free from signs and symptoms of infection Skin Assessment (Pre Procedure) FTPM Pre-Care Text: Implements protective measures to prevent skin/ tissue injury due to thermal or mechanical sources Evaluates for signs and symptoms of physical injury to skin and tissue Entry 1 Skin Integrity Intact, [place], Warm, and Skin Abnormality No Dry Outcomes Met? Yes Last Modified By: Emerald Ward RN 09/02/21 08:18:39 Post-Care Text: The patient is free from signs and symptoms of injury caused by extraneous objects Patient Positioning FTPM Pre-Care Text: Identifies physical alterations that require additional precautions for procedure-specific positioning, verifies presence of prosthetics or corrective devices, positions the patient, evaluates the patient for signs and symptoms of injury as a result of positioning Entry 1 Procedure LUMBAR EPIDURAL STEROID Body Position Prone INJECTION(.) Feet Uncrossed? Yes Left Arm Position Resting at Side Right Arm Position Resting at Side Left Leg Position Extended Right Leg Position Extended Positioning Device Pillow Under Head Large, Safe (more content not included)... Normal [facility] Main OR Preoperative Recordo n 09-02-2021 Main OR Preoperative Record Holding Area Document Type FT Summary Primary Physician: Cole Hidalgo MD Finalized Date/Time: 09/02/21 08:30:21 Pt. Name: MYRTLE JONES/Sex: 1965 Female Med Rec #: [id number] Physician: Cole Hidalgo MD Financial #: [id number] Pt. Type: P Room/Bed: / Admit/Disch: 09/02/21 08:07:50 - Institution: Case Times Holding FTPM Pre-Care Text: Verifies consent for planned procedure, identifies individual values and wishes concerning care, includes family members in perioperative teaching Secures patient's records' belongings, and valuables, maintains patient's dignity and privacy, and maintains patient confidentiality Entry 1 In Holding 09/02/21 08:27:00 Outcomes Met? Yes Last Modified By: Eve Torres RN 09/02/21 08:27:40 Post-Care Text: The patient participates in decisions affecting his or her perioperative plan of care The patient's right to privacy is maintained Surgery Checklist FTPM Entry 1 Patient Birthday, ID Band Procedure History and Physical, Identification: Check, Patient Verification: Surgical Consent, With Participation Patient NPO after Midnight: No Date/Time: 09/02/21 07:00:00 Personal Items: Jewelry Personal Items rings multiple Comment: Complaints of Pain: Yes Pain Comment: 5/10 lower back Operative Site Yes Marked By: operative site marked Marking: by Dr. Hidalgo Availability Equipment, X-Ray Verified: Does Patient Smoke No Patient states Yes Comment - Adult Ankush-spouse postop adult Supervision supervision available Case Cancelled in No Holding Area see comments below for reason Last Modified By: Eve Torres RN 09/02/21 08:30:15 Finalized By: Eve Torres RN Document Signatures Signed By: vEe Torres RN 09/02/21 08:30 Normal [facility] Operative Reporton Operative Report Patient: MYRTLE JONES Age: 56 years Sex: Female : 1965 Associated Diagnoses: None Author: Cole Hidalgo MD Procedure Procedure: Lumbar Epidural Steroid Injection with Fluoroscopic Guidance at L3/4 Diagnosis: Lumbar Disc Displacement without myelopathy Anesthesia: Local The patient was identified in the pre-op area. The procedure, including risks benefits and alternatives was discussed with the patient. The patient agreed to proceed. Informed consent was obtained and the site(s) marked. The patient was brought to the procedure room and placed in the prone position with padding under the abdomen to reduce lumbar lordosis. Time out was taken. The back was prepped and draped in sterile fashion. Skin and subcutaneous tissues were anesthetized with 6 mL of Lidocaine 2% through a 25G needle. An 18G Touhy needle was then advanced under fluoroscopic guidance (A/P and contralateral oblique views) onto the inferior lamina and then advanced cephalad into the L3/4 epidural space using loss of resistance technique with a plastic TOAN syringe. Isovue 2mL was injected under live fluoroscopy which demonstrated appropriate epidural spread without vascular uptake. After confirmation of negative aspiration, 5mL of 0.5% PF lidocaine and 10mg of PF dexamethasone were injected. The needle was removed and a bandage applied. The patient was brought to the recovery area in stable condition and then monitored for an appropriate period of time. The patient was discharged home in good condition with post-procedure instructions. No apparent complications. Epidural injection procedure Physical Exam: vital signs Vital Signs 09/02/2021 8:29 EDT Temperature Oral 36.6 DegC Heart Rate Monitored 66 bpm Respiratory Rate 16 br/min Systolic Blood Pressure 144 mmHg HI Diastolic Blood Pressure 93 mmHg HI Mean Arterial Pressure, Monitered 110 mmHg SpO2 100 % . Normal [facility] Comment on above: Result Comment: Elec tronically Signed By: Gwen CANNON, Cole Anaya\.br\Date and Time Signed: 09/02/21 09:26 EDT Patient Correspondenceon Patient Correspondence [id number]#1. 00CD:127 [facility] Insurance Correspondence Off iceon 08-22-2021 Insurance Correspondence Office [id number]#1.00 CD:127 [facility] Consent for Treatmenton 08-01 Consent for Treatment [id number]#1.0 0CD:127 [facility] HIPAA Forms Officeon 021 HIPAA Forms Office [id number]#1. 00CD:127 [facility] Legal Correspondence Officeo n 08-18-2021 Legal Correspondence Office [id number]#1. 00CD:127 Normal [facility] Legal Correspondence Office [id number]#1. 00CD:127 Normal [facility] Office/Clinic Note-Physician on 08-18-2021 Office/Clinic Note-Physician [id number]#1. 00CD:127 Normal [facility] Patient Correspondenceon Patient Correspondence [id number]#1. 00CD:127 Normal [facility] Patient Correspondence [id number]#1. 00CD:127 Normal [facility] Patient Correspondence [id number]#1. 00CD:127 Normal [facility] Patient Correspondence [id number]#1. 00CD:127 Normal [facility] Patient Correspondence [id number]#1. 00CD:127 Normal [facility] Patient History Officeon Patient History Office [id number]#1. 00CD:127 Normal [facility] Radiology Outside Office Student Assistant yon 08-11-2021 Radiology Outside Office Copy [id number]#1.0 0CD:127 Normal [facility] Radiology Outside Office Copy [id number]#1.0 0CD:127 Normal [facility] Outside Records Officeon Outside Records Office [id number]#1. 00CD:127 Normal [facility] Referrals Officeon Referrals Office [id number]#1. 00CD:127 Normal [facility] Vital Signs Date Time Vital Sign Value Performing Clinician Facility 09-13-2023 14:40-0500 Body height 170.18 cm Anand Garcia Other [facility] [employer] Other 09-13-2023 14:40-0500 Body mass index (BMI) [Ratio] 28.97 kg/m2 Anand Radha Other [facility] [employer] Other 09-13-2023 14:40-0500 Body temperature 98.1 [degF] Anand Garcia Other [facility] [employer] Other 09-13-2023 14:40-0500 Body weight 83.92 kg Anand Garcia Other [facility] [employer] Other 09-13-2023 14:40-0500 Diastolic blood pressure 86 mm[Hg] Anand Garcia Other [facility] [employer] Other 09-13-2023 14:40-0500 Respiratory rate 18 /min Anand Radha Other [facility] [employer] Other 09-13-2023 14:40-0500 SaO2% (BldA) [Mass fraction] 97 % Anand Garcia Other [facility] [employer] Other 09-13-2023 14:40-0500 Systolic blood pressure 126 mm[Hg] Anand Garcia Other [facility] [employer] Other 06-09-2023 14:40-0400 Body height 170.18 cm Anand Garcia Other [facility] [employer] Other 06-09-2023 14:40-0400 Body mass index (BMI) [Ratio] 28.5 kg/m2 Anand Garcia Other [facility] [employer] Other 06-09-2023 14:40-0400 Body temperature 98.3 [degF] Anand Garcia Other [facility] Other 06-09-2023 14:40-0400 Body weight 82.56 kg Anand Garcia Other [facility] [employer] Other 06-09-2023 14:40-0400 Diastolic blood pressure 86 mm[Hg] Anand Garcia Other [facility] [employer] Other 06-09-2023 14:40-0400 Respiratory rate 18 /min Anand Garcia Other [facility] [employer] Other 06-09-2023 14:40-0400 SaO2% (BldA) [Mass fraction] 98 % Anand Garcia Other [facility] [employer] Other 06-09-2023 14:40-0400 Systolic blood pressure 138 mm[Hg] Anand Garcia Other [facility] [employer] Other 01-14-2023 15:00-0400 Body height 170.18 cm Marianne Yemi Other [facility] [employer] Other 01-14-2023 15:00-0400 Body mass index (BMI) [Ratio] 27.58 kg/m2 Marianne Yemi Other [facility] [employer] Other 01-14-2023 15:00-0400 Body temperature 97.3 [degF] Marianne Yemi Other [facility] Other 01-14-2023 15:00-0400 Body weight 79.88 kg Marianne Yemi Other [facility] [employer] Other 01-14-2023 15:00-0400 Diastolic blood pressure 82 mm[Hg] Marianne Yemi Other [facility] [employer] Other 01-14-2023 15:00-0400 Respiratory rate 18 /min Marianne Yemi Other [facility] [employer] Other 01-14-2023 15:00-0400 SaO2% (BldA) [Mass fraction] 100 % Marianne Yemi Other [facility] Other 01-14-2023 15:00-0400 Systolic blood pressure 130 mm[Hg] Marianne Yemi Other [facility] [employer] Other 11-30-2022 15:40-0500 Body height 170.18 cm Anand Garcia Other [facility] [employer] Other 11-30-2022 15:40-0500 Body mass index (BMI) [Ratio] 27.17 kg/m2 Anand Garcia Other [facility] [employer] Other 11-30-2022 15:40-0500 Body temperature 97 [degF] Anand Garcia Other [facility] [employer] Other 11-30-2022 15:40-0500 Body weight 78.7 kg Anand Garcia Other [facility] [employer] Other 11-30-2022 15:40-0500 Diastolic blood pressure 86 mm[Hg] Anand Garcia Other [facility] [employer] Other 11-30-2022 15:40-0500 Respiratory rate 18 /min Anand Garcia Other [facility] [employer] Other 11-30-2022 15:40-0500 SaO2% (BldA) [Mass fraction] 98 % Anand Garcia Other [employer] Other 11-30-2022 15:40-0500 Systolic blood pressure 128 mm[Hg] Anand Garcia Other [facility] [employer] Other 11-16-2022 12:54-0500 Body height 170.2 cm Anaid Garrick BUILD ENGINEER.STRATEGY ASSOCIATE Work Phone: [facility] 11-16-2022 12:54-0500 Body weight 78.47 kg Anaid Garrick BUILD ENGINEER.STRATEGY ASSOCIATE Work Phone: [facility] 11-16-2022 12:54-0500 Diastolic blood pressure 89 mm[Hg] Anaid Garrick BUILD ENGINEER.STRATEGY ASSOCIATE Work Phone: [facility] 11-16-2022 12:54-0500 Heart rate 76 /min Anaid Garrick BUILD ENGINEER.STRATEGY ASSOCIATE Work Phone: [facility] 11-16-2022 12:54-0500 Systolic blood pressure 147 mm[Hg] Anaid Garrick BUILD ENGINEER.STRATEGY ASSOCIATE Work Phone: [facility] 08-26-2022 15:40-0400 Body height 170.18 cm Anand Garcia Other [facility] [employer] Other 07-24-2022 15:30-0400 Body weight 77.56 kg Cresencio Robles DO Work Phone: [facility] 07-24-2022 15:30-0400 Diastolic blood pressure 89 mm[Hg] Cresencio Robles DO Work Phone: [facility] 07-24-2022 15:30-0400 Heart rate 62 /min Cresencio Robles DO Work Phone: [facility] 07-24-2022 15:30-0400 Systolic blood pressure 144 mm[Hg] Cresencio Robles DO Work Phone: [facility] 05-25-2022 15:40-0400 Body height 170.18 cm Anand Garcia Other [employer] Other 05-25-2022 15:40-0400 Body mass index (BMI) [Ratio] 27.09 kg/m2 Anand Josesitoyared Other [employer] Other 05-25-2022 15:40-0400 Body temperature 97.2 [degF] Anand Garcia Other [facility] Other 05-25-2022 15:40-0400 Body weight 78.47 kg Anand Josesitoyared Other [facility] Other 05-25-2022 15:40-0400 Diastolic blood pressure 82 mm[Hg] Anand Garcia Other [employer] Other 05-25-2022 15:40-0400 Respiratory rate 18 /min Anand Garcia Other [employer] Other 05-25-2022 15:40-0400 SaO2% (BldA) [Mass fraction] 98 % Anand Josesitoyared Other [employer] Other 05-25-2022 15:40-0400 Systolic blood pressure 124 mm[Hg] Anand Josesitoyared Other [employer] Other 02-12-2022 15:40-0400 Body height 170.18 cm Marianne Yemi Other [employer] Other 02-12-2022 15:40-0400 Body mass index (BMI) [Ratio] 27.09 kg/m2 Marianne Yemi Other [employer] Other 02-12-2022 15:40-0400 Body temperature 97 [degF] Marianne Yemi Other [employer] Other 02-12-2022 15:40-0400 Body weight 78.47 kg Marianne Yemi Other [employer] Other 02-12-2022 15:40-0400 Diastolic blood pressure 80 mm[Hg] Marianne Yemi Other [employer] Other 02-12-2022 15:40-0400 Respiratory rate 18 /min Marianne Yemi Other [employer] Other 02-12-2022 15:40-0400 SaO2% (BldA) [Mass fraction] 99 % Marianne Yemi Other [employer] Other 02-12-2022 15:40-0400 Systolic blood pressure 130 mm[Hg] Marianne Yemi Other [employer] Other 02-06-2022 10:00-0400 Body height 170.18 cm Dario Green II Other [employer] Other 02-06-2022 10:00-0400 Body mass index (BMI) [Ratio] 27.09 kg/m2 Dario Quintanillaisle II Other [employer] Other 02-06-2022 10:00-0400 Body weight 78.47 kg Dario Quintanillaisle II Other [employer] Other 01-19-2022 17:00-0400 Body height 170.18 cm Anand Garcia Other [employer] Other 01-19-2022 17:00-0400 Body mass index (BMI) [Ratio] 27.09 kg/m2 Anand Garcia Other [employer] Other 01-19-2022 17:00-0400 Body temperature 96.7 [degF] Anand Garcia Other [employer] Other 01-19-2022 17:00-0400 Body weight 78.47 kg Anand Garcia Other [employer] Other 01-19-2022 17:00-0400 Diastolic blood pressure 84 mm[Hg] nAand Garcia Other [employer] Other 01-19-2022 17:00-0400 Respiratory rate 18 /min Anand Garcia Other [employer] Other 01-19-2022 17:00-0400 SaO2% (BldA) [Mass fraction] 99 % Anand Garcia Other [employer] Other 01-19-2022 17:00-0400 Systolic blood pressure 130 mm[Hg] Anand Garcia Other [employer] Other Encounters Encounter Date Encounter Type Care Provider Facility Start: 11-26-2023 End: 11-26-2023 ambulatory CRESENCIO ROBLES Facility:[facility] Start: 10-13-2023 Telephone encounter Salma rodriguez RN Work Phone: [facility] Comment on above: Insurance Authorizat ion ([employer] 140MG/ML auto-injectors/) Start: 09-20-2023 End: 09-20-2023 ambulatory Anand Garcia Other [employer] Other Start: 09-20-2023 Telephone encounter Anand Garcia [facility] [place] Start: 09-13-2023 End: 09-13-2023 ambulatory Anand Garcia Other [employer] Other Start: 09-13-2023 Office outpatient vi sit 25 minutes Anand Garcia [facility] [place] Start: 09-09-2023 Telephone encounter Cresencio P Kingston on DO Work Phone: Neurology Comment on above: Insurance Authorizat clark (LEORA) Start: 07-29-2023 End: 07-29-2023 ambulatory Anand Garcia Facility:[facility] Start: 07-29-2023 End: 07-29-2023 ambulatory DO Anand Gracia Work Phone: [facility] Work Phone: Start: 07-29-2023 End: 07-29-2023 Patient encounter procedure DO Anand Garcia Work Phone: [facility] Work Phone: Start: 07-21-2023 End: 07-21-2023 ambulatory CRESENCIO MARADIAGAON Facility:[facility] Start: 06-09-2023 End: 06-09-2023 ambulatory Anand Garcia Other [employer] Other Start: 06-09-2023 Office outpatient vi sit 25 minutes [facility] Start: 01-14-2023 End: 01-14-2023 ambulatory Marianne Plummer Other [employer] Other Start: 01-14-2023 Office outpatient vi sit 25 minutes Marianne Yemi [facility] [place] Start: 01-02-2023 End: 01-03-[address] ANAND GARCIA Facility:[facility] Start: 12-29-2022 End: 12-29-2022 ambulatory Anand Garcia Other [employer] Other Start: 12-29-2022 Telephone encounter [facility] Start: 11-30-2022 End: 11-30-2022 ambulatory Anand Garcia Other [employer] Other Start: 11-30-2022 Office outpatient vi sit 15 minutes Anand Garcia [facility] [place] Start: 11-23-2022 Refill Cresencio Moralez Work Phone: Neurology Comment on above: Refill Request Start: 11-16-2022 End: 11-16-2022 ambulatory ANAID MCCAULEY Facility:[facility] Start: 11-16-2022 End: 11-16-2022 Patient encounter procedure Anaid Garrick BUILD ENGINEER.STRATEGY ASSOCIATE Work Phone: [facility] Comment on above: Cervicalgia (Primary Dx); History of fusion of cervical spine; Cervical spondylosis Start: 11-16-2022 ambulatory ANAID MCCAULEY Faci lity:[facility] Start: 11-14-2022 End: 11-15-[address] ANAND GARCIA Facility: Start: 11-13-2022 Telephone encounter Lori mujica ([place]) Radiology Comment on above: appointment instruct ions (MRI- 11/16/2022 @ 1040am/Appointment reminder call - LEFT MESSAGE - with directions to office and the # to call if they cannot keep this appointment/[phone]/) Start: 10-06-2022 Telephone encounter Salma rodriguez RN Work Phone: [facility] Comment on above: Insurance Authorizat ion ([employer] 140MG/ML auto-injectors/) Start: 09-28-2022 End: 09-28-2022 ambulatory ANAID MCCAULEY Facility:[facility] Start: 09-28-2022 End: 09-28-2022 ambulatory Anaid Garrick BUILD ENGINEER.STRATEGY ASSOCIATE Work Phone: [facility] Comment on above: Spinal stenosis of c ervical region (Primary Dx); Cervicalgia; History of fusion of cervical spine; Cervical spondylosis Start: 09-28-2022 End: 09-28-2022 Telemedicine consultation with patient Anaid Valdesshannon RIDERSTRATEGY ASSOCIATE Work Phone: [facility] Start: 09-11-2022 ambulatory No Pcp (Historical) [facility] Start: 08-26-2022 End: 08-26-2022 ambulatory Anand Garcia Other [employer] Other Start: 08-26-2022 Telephone encounter Anand Garcia [facility] [place] Start: 07-29-2022 End: 07-29-2022 ambulatory Anand Garcia Other [employer] Other Start: 07-29-2022 Telephone encounter Anand Garcia [facility] [place] Start: 07-28-2022 End: 07-28-2022 ambulatory ANAID MCCAULEY Facility:[facility] Start: 07-24-2022 End: 07-24-2022 Patient encounter procedure Cresencio Robles DO Work Phone: Neurology Comment on above: Migraine with aura a nd without status migrainosus, not intractable (Primary Dx); Cervicalgia; Migraine without aura and without status migrainosus, not intractable; Bilateral occipital neuralgia Start: 06-02-2022 End: 06-02-2022 Patient encounter procedure DO [facility]and [facility] Start: 05-27-2022 Telephone encounter Anand Garcia [facility] [place] Start: 05-27-2022 End: 05-28-[address] ANAND GARCIA [facility] Other Start: 05-26-2022 End: 05-27-[address] ANAND GARCIA Facility:[facility] Start: 05-25-2022 End: 05-25-2022 ambulatory Anand Garcia Other [employer] Other Start: 05-25-2022 Office outpatient vi sit 25 minutes Anand Garcia [facility] [place] Start: 05-09-2022 End: 05-10-[address] ANAND GARCIA Facility:[facility] Start: 02-12-2022 End: 02-12-2022 ambulatory Marianne Yemi Other [employer] Other Start: 02-12-2022 Office outpatient vi sit 15 minutes Marianne Yemi [facility] Start: 02-11-2022 End: 02-11-2022 ambulatory Dario Green II Other [employer] Other Start: 02-11-2022 Telephone encounter Dario Green II [facility] [employer] Start: 02-06-2022 End: 02-06-2022 ambulatory Dario Green II Other [employer] Other Start: 02-06-2022 Office outpatient ne w 45 minutes Dario Green II [facility] Start: 02-03-2022 End: 02-04-[address] ANAND GARCIA Facility:[facility] Start: 01-28-2022 Encounter for preprocedural laboratory examination DR YANNICK ESTRADA [facility] Start: 01-28-2022 End: 01-28-[address] YANNICK ESTRADA Facility:[facility] Start: 01-24-2022 End: 01-25-[address] ANAND GARCIA Facility:[facility] Start: 01-24-2022 End: 01-25-2022 Encounter for preprocedural laboratory examination DR ANAND GARCIA Facility:[facility] Start: 01-20-2022 End: 01-21-[address] ANAND GARCIA Facility:[facility] Start: 01-19-2022 Encounter for preprocedural cardiovascular examination [facility] Start: 01-19-2022 Encounter for preprocedural laboratory examination [facility] Start: 01-19-2022 End: 01-19-2022 ambulatory Anand Garcia Other [facility] [employer] Other Start: 01-19-2022 Encounter for other preprocedural examination Anand Garcia [facility] Start: 01-19-2022 Office outpatient vi sit 15 minutes Anand Garcia [facility] Start: 01-15-2022 End: 01-16-[address] YANNICK ESTRADA Facility:[facility] Start: 01-15-2022 End: 03-18-2022 Encounter for preprocedural cardiovascular examination DR YANNICK ESTRADA Facility:[facility] Procedures Date Procedure Procedure Detail Performing Clinician Start: 07-29-2023 Screening mammograph y of bilateral breasts DO Anand Garcia Work Phone: Start: 07-17-2022 Adult depression scr eening assessment Cresencio Robles DO Work Phone: Start: 06-02-2022 Screening mammograph y of bilateral breasts DO Anand Garcia Work Phone: Plan of Treatment Date Care Activity Detail Author Start: 07-17-2023 Adult depression screening assessment DEPRESSION SCREENING [facility] Start: 07-02-2023 Influenza vaccination Influenza Vacc ine (#1) [facility] Start: 11-01-2022 DEPRESSION ASSESSMENT DEPRESSION ASS ESSMENT [facility] Start: 07-02-2022 Influenza vaccination INFLUENZA (#1) [facility] Start: 11-01-2021 DEPRESSION ASSESSMENT DEPRESSION ASS ESSMENT [facility] Start: 2017 SHINGRIX VACCINE (1 of 2) SHINGRIX VACCINE (1 of 2) [facility] Start: 2012 COLOGUARD (FIT-DNA) COLOGUARD (FIT-D NA) [facility] Start: 2012 Colonoscopy COLONOSCOPY [facility] Start: 2012 COLORECTAL CANCER SCREENING COLORECTAL CANCER SCREENING [facility] Start: [address] COLONOGRAPHY [facility] Start: 2012 DIABETES SCREEN DIABETES SCREEN [facility] Start: 2012 Diabetes Screening Diabetes Screenin g [facility] Start: 2012 FECAL OCCULT BLOOD FECAL OCCULT BLOO D [facility] Start: 2012 Lipid 1996 panel - S karyna or Plasma Lipid Screening [facility] Start: 2012 Lipid panel Lipid Screening [facility] Start: 2012 LIPID SCREEN LIPID SCREEN [facility] Start: 2012 Screening for malign ant neoplasm of colon [facility] Start: 2012 [facility] Start: 2007 Mammography [facility] Start: 2007 Screening for malign ant neoplasm of breast Mammogram Screening [facility] Start: 1997 HPV TESTING HPV TESTING [facility] Start: 1997 Screening for malign ant neoplasm of cervix HPV Testing [facility] Start: 1988 PAP TESTING PAP TESTING [facility] Start: 1988 Screening for malign ant neoplasm of cervix Pap Testing [facility] Start: 1986 Urine microalbumin profile [facility] Start: 1985 HEPATITIS C SCREENING HEPATITIS C [facility] Start: 1985 Hepatitis C screening Hepatitis C [facility] Start: 1985 HIV SCREENING HIV SCREENING [facility] Start: 1985 HIV screening HIV Screening [facility] Start: 1967 COVID-19 VACCINE (#1) COVID-19 VACCI NE (#1) [facility] Start: 1967 HEPATITIS B (1 of 3 - 3-dose series) HEPATITIS B (1 of 3 - 3-dose series) [facility] Start: 1967 Hepatitis B Vaccine (1 of 3 - 3-dose series) Hepatitis B Vaccine (1 of 3 - 3-dose series) [facility] End: 10-28-2023 Mri spinal canal cervical w/o contrast matrl MRI CERVICAL SPINE WO IVCON Radiology Routine Cervicalgia History of fusion of cervical spine Cervical spondylosis 1 Occurrences starting 09/28/2022 until 10/28/2023 [facility] Work Phone: Comment on above: 1 Occurrences starti ng 09/28/2022 until 10/28/2023 [facility] Payers Date Payer Category Payer Self-pay [id number] 2019 Unknown [employer]UE CARD PPO OOS [id number] 2019-Present [phone] [id number] [place] [address] PPO [id number] 1967 Unknown [id number] 93 1967 Unknown [id number] 93 1967 Unknown [id number] 93 1967 Unknown [id number] 93 1967 Unknown [id number] [id number] 93 1967 Unknown [id number] 2.16.840.1.807929.3.579.2.5 93 1967 Unknown [id number] [id number] 93 1967 Unknown [id number] 2.16.840.1.350134.3.579.2.5 93 1967 Unknown [id number] [id number] 93 1967 Unknown [id number] [id number] 93 1959 Blue Cross Blue Shield [id number] Unknown [facility] [id number] Unknown [id number] 31 Social History Date Type Detail Facility Unknown if ever smoked [employer] Other Start: 10-09-2020 End: 11-16-2022 Sex Assigned At [facility] Start: 1965 Sex Assigned At Female F [facility] Start: 01-31-2018 End: 11-16-2022 Tobacco smoking status NHIS Never smoked tobacco [facility] Start: 01-31-2018 End: 11-16-2022 Tobacco use and exposure Smokeless tobacco non-user [facility] Start: 01-29-2021 End: 11-16-2022 Alcohol intake Current drinker of alcohol (finding) [facility] Start: 10-11-2015 History SDOH Alcohol Comment Infrequent [facility] Start: 1965 Sex Assigned At Not on file [facility] Start: 07-14-2022 End: 07-24-2022 Exposure to SARS-CoV-2 (event) Not sure [facility] Start: 10-09-2020 End: 11-16-2022 History of Social function [facility] Adult Depression Screening Assessment 1 [facility] Clinical Notes 08-25-2021 to 11-26-2023 Telephone Encounter - Salma Callejas RN - 10/20/2023 1:25 PM ESTTelephone Encounter - Salma Callejas RN - 10/13/2023 12:52 PM EST Note Date & Type Note Facility 11-26-2023 Note HNO ID: [id number] Author: CRESENCIO ROBLES, DO Service: ? Author Type: Physician Type: Progress Notes Filed: 11/26/2023 15:28 Note Text: [facility] - Follow-up Visit ASSESSMENT: 58 year old female with history significant for HTN, migraine with aura, migraine without aura, chronic neck pain s/p fusion x 2, chronic musculoskeletal pain, and chronic daily headache consistent with chronic migraine with additional cervical musculoskeletal and occipital neuralgia contributors at initial visits. She improved significantly on Aimovig going from 25+ days/month of headache down to about 3 milder migraines/month with less severity. However, since August migraines have evolved back to chronic migraine and Aimovig seems to have worn off. She has been having another migrainous flares since yesterday. PLAN: (Please see typed patient instructions for detailed instructions) ---> Acute Treatment: -Toradol shot today for current flare. -Ubrelvy trial. We will request a precertification for a Calcitonin Gene-Related Peptide Receptor Antagonist (GEPANT) Ubrogepant for the rescue treatment of episodic migraine. This patient meets ICHD-3 criteria for treatment of migraine with a small molecule CGRP antagonist GEPANT. The FDA has approved GEPANTS for the treatment of migraine. Specifically, the patient has 14 headaches per month, lasting 4 or more hours/day associated with photophobia, phonophobia, nausea, vomiting for three or more months. Medication overuse headache has been ruled out.Patient will not use with another GEPANT. The patient has tried and failed the following : The following preventative medications have been tried without benefit: Anti-Convulsant Topiramate (Topamax, Trokendi XL, Qudexy) Anti-Depressant and Antipsychotic Amitriptyline (Elavil) Duloxetine (Cymbalta) Nortriptyline (Pamelor, Aventyl) Blood Pressure Propranolol (Inderal) Timolol MABs Erenumab (Aimovig) Botulinum Toxin Onabotulimum Toxin A (Botox) The following abortive medications have been tried but require high frequency use which can lead to Medication Overuse Headache: Analgesic Butalbital/acetaminophen/caffein e (Fioricet) Hydrocodone/Acetaminophen (Vicodin, [place]) Anti-Migraine Dihydroergotamine (DHE-45, Migranal) Rizatriptan (Maxalt) Sumatriptan (Imitrex, Sumavel) Zolmitriptan (Zomig) Over the Counter Medications Acetaminophen (Tylenol) Acetaminophen/Aspirin/Caffeine (Excedrin, Goody?s) Ibuprofen (Advil, Motrin) ---> Preventive Treatment: -Change Aimovig to Qulipta trial. Also discussed other CGRP mAbs alternatives. -Continue Propranolol 80 mg ER daily (BP and migraines). ---> Follow-up: 4 months. We will request a precertification for a Calcitonin Gene-Related Peptide Receptor Antagonist (GEPANT) Atogepant for the prevention of chronic migraine . This patient meets ICHD-3 criteria for treatment of migraine with a small molecule CGRP antagonist GEPANT. The FDA has approved GEPANTS for the treatment of migraine. Specifically, the patient has 25 headaches per month, lasting 4 or more hours/day associated with photophobia, phonophobia, nausea, vomiting for three or more months. Medication overuse headache has been ruled out. Patient will not use with another GEPANT. The patient has tried and failed the following : The following preventative medications have been tried without benefit: Anti-Convulsant Topiramate (Topamax, Trokendi XL, Qudexy) Anti-Depressant and Antipsychotic Amitriptyline (Elavil) Duloxetine (Cymbalta) Nortriptyline (Pamelor, Aventyl) Blood Pressure Propranolol (Inderal) Timolol MABs Erenumab (Aimovig) Botulinum Toxin Onabotulimum Toxin A (Botox) The following abortive medications have been tried but require high frequency use which can lead to Medication Overuse Headache: Analgesic Butalbital/acetaminophen/caffein e (Fioricet) Hydrocodone/Acetaminophen (Vicodin, [place]) Anti-Migraine Dihydroergotamine (DHE-45, Migranal) Rizatriptan (Maxalt) Sumatriptan (Imitrex, Sumavel) Zolmitriptan (Zomig) Over the Counter Medications Acetaminophen (Tylenol) Acetaminophen/Aspirin/Caffeine (Excedrin, Goody?s) Ibuprofen (Advil, Motrin) Last visit: 07/21/23 Interval Headache Hx: Was doing well with 3-4 per month. However, since August migraines and headaches have been worse and most days. New Labs/Imaging: n/a HEADACHE SCORES: Headache Questions 07/17/2022 07/14/2023 11/22/2023 ER visits since last office visit: 0 0 0 Hospital stays since last office visit 0 0 0 Limited ADLs in the last month: 5 9 8 Days missed from work or school in the last month: 0 0 0 Days headache pain free in the last month: 18 10 12 Days per month with ALL of the following symptoms - decreased productivity, light sensitivity and nausea: (more content not included)... [facility] 10-20-2023 Miscellaneous Notes Ambulatory Pharmacy Prior Authorization Note Provider Intervention Required?: No- Pharmacy completed on your behalf. Rx Plan: Other: bcbs Drug: Aimovig 140MG/ML auto-injectors Cover My Meds Palafox: [id number] Determination: Approved Prior Authorization/Case #: [id number] Prior Authorization Expiration: 10/16/2024 Time to PA Submission in CMM: 15 min Time to PA Determination in CMM: Same day Additional Information: PLEASE NOTE: Pt will need follow up office visit to review/document efficacy and tolerability of treatment before prior auth expiration. Please ensure a future follow up appt is scheduled with your patient. This will ensure no interruption in patient's ability to obtain medication refills. Prescriptions will now be processed through [facility] for determination of next steps. For questions relating to this submission, please contact [facility] at [phone] [facility] received prescription(s) for Aimovig 140MG/ML auto-injectors. Benefits investigation was conducted, indicating that a prior authorization is required. PA was initiated and pending review through [employer]. All pertinent clinical information was submitted to insurance. [facility] Palafox: [id number] Ordering Provider: Cresencio Robles DO Murtaugh, Alisha, RN [facility] P: , F: documented in this encounter [facility] 09-13-2023 Evaluation note Encounter Date Diagnosis Assessment Notes Sep, Hypertriglyceridemia (ICD-10 - E78.1) She started the Rosuvastatin in June (2022) and had lab drawn in July (2022) to be sure medication was not affecting her liver. Her liver enzymes are now slightly elevated. Her total cholesterol was 144. HDL was 43. LDL was 64. Triglycerides are 185. VLDL was 37. I would like her to continue to monitor her intake of carbs and sugars. Stay active. I am going to have her cautiously continue with the Rosuvastatin. If her eyes turn yellow she should stop the medication. She should have a hepatic and hepatitis panel done and an ultrasound of the liver done. Sep, Elevated liver function tests (ICD-10 - R94.5) We discussed that in July (05/26) and November () (2022) her AST/ALT were normal. When just checked her AST was 38 and her ALT was 66. If these are high it indicates the liver is irritated. Recommend we order a blood test to be sure she does not have hepatitis. She has never been an IV drug user and has never had a blood transfusion prior to 1984. I will order an ultrasound of the liver to rule out fatty liver. If she does have fatty liver then we will need to discuss this further. If she does have this then she will need to cut out her intake of carbs. Sep, Hyperglycemia (ICD-10 - R73.9) Discussed blood sugar results with patient today. Glucose is 100. HgA1C is 5.7. Again, continue to monitor intake of carbs and sugars. Stay active. Sep, Degenerative disc disease, cervical (ICD-10 - M50.30) She does continue to use the above medication as needed. She was provided with a refill today. An OARRS report was printed and reviewed, no discrepancies noted. Frequent appointments needed due to addiction potential of medication. Pain inventory sheet completed and reviewed if opiod medication given. Pain contract is on file if pertinent. Patient will have office visits every three months for evaluation or sooner if needed. I discussed addiction potential of medication with the patient. Discussed with the patient and provided a treatment plan including the use of non-opiod analgesics and non-pharmacolo gical intervention with patient if treated for pain. We have discussed realistic benefits and known risks of opiod/controll ed therapy and the expected benefits for both pain and function. These benefits outweigh the risks. Patient has been counselled on the dangers of combining opiods/control led prescriptions with alcohol or other sedatives and counseled on the safe storage and disposal of opiods/control led prescriptions. Do not drive or operate heavy machinery after taking opiod/controll ed medication. I have verified that no current substance abuse treatments are being prescribed. Sep, Chronic kidney disease (ICD-10 - N18.9) Discussed kidney studies with patient today. Her BUN is 20. Creatinine is up from 1.22 to 1.32. Her EGFR is down from 46 to 42. She has an appointment with Dr. Plummer in Dec (2023). Sep, Migraine (ICD-10 - G43.909) Follow with Dr. Teran for evaluation of migraines. She was able to try the Trudhesa one time and voices that it did not do anything for the migraine she had, it did not make her sick. She is going to see if this works for her when she gets another migraine and if it does not then she will let Dr. Teran know about this. Sep, jail use of drug (ICD-10 - Z79.899) Sep, Weight gain (ICD-10 - R63.5) She has gained three pounds since last seen. [employer] Other 11-09-2023 Miscellaneous Notes* Telephone Encounter - Katia Alexander - 09/09/2023 2:36 PM EST Completed over [facility]: MYRTLE JONES Palafox: [id number] - PA Drug Trudhesa 0.725MG/ACT aerosol Form [facility] Commercial Electronic PA Form (2016 [facility]) Approvedtoday Your request was approved based on the initial information provided at the time of the coverage request submission. Please allow additional time for the final decision to be made and added to the patient's account. Katia Alexander [facility] NoteHNO ID: [id number] Author: Cresencio Robles, DO Service: ? Author Type: Physician Type: Progress Notes Filed: 07/21/2023 8:59 AM Note Text: Headache Center - Follow-up Visit ASSESSMENT: 58 year old female with history significant for HTN, migraine with aura, migraine without aura, chronic neck pain s/p fusion x 2, chronic musculoskeletal pain, and chronic daily headache consistent with chronic migraine with additional cervical musculoskeletal and occipital neuralgia contributors. She is doing significantly better on Aimovig going from 25+ days/month of headache down to about 3 milder migraines/month with less severity. PLAN: (Please see typed patient instructions for detailed instructions) ---> Acute Treatment: -Trudbobbi DHE ns since most migraines are waking and triptans aren't as effective for her now. Also discussed gepants as a next consideration as well. Discussed no triptan use within 24 hours if she has some left over. ---> Preventive Treatment: -Aimovig 140 mg per month. -Propranolol 80 mg ER daily (BP and migraines). Myrtle Jones has been previously approved for Calcitonin Gene Related Peptide Monoclonal Antibody (CGRP MAB) (Erenumab). The patient has demonstrated the following: Patient reduction in overall migraine days: Yes Patient reduction in moderate-severe migraine days: Yes Individual has obtained clinical benefit deemed significant by individual or prescriber: Yes Patient's quality of life and ability to perform ADLs has improved: Yes We suggest the patient continue treatment with CGRP MAB Erenumab. The following preventative medications have been tried for three or more months without benefit: Anti-Convulsant Topiramate (Topamax, Trokendi XL, Qudexy) Anti-Depressant and Antipsychotic Amitriptyline (Elavil) Duloxetine (Cymbalta) Nortriptyline (Pamelor, Aventyl) Blood Pressure Propranolol (Inderal) Timolol MABs Erenumab (Aimovig) Galcanezumab (Emgality) Botulinum Toxin Onabotulimum Toxin A (Botox) The following abortive medications have been tried but require high frequency use which can lead to Medication Overuse Headache: Analgesic Butalbital/acetaminophen/caffeine (Fioricet) Hydrocodone/Acetaminophen (Vicodin, [place]) Anti-Migraine Dihydroergotamine (DHE-45, Migranal) Rizatriptan (Maxalt) Sumatriptan (Imitrex, Sumavel) Zolmitriptan (Zomig) Over the Counter Medications Acetaminophen (Tylenol) Acetaminophen/Aspirin/Caffeine (Excedrin, Goody?s) Ibuprofen (Advil, Motrin) ---> Follow-up: 12 months. Last visit: 07/24/22 Interval Headache Hx: 3-4 overall headache days per month which includes 3-4 migraine days per month. Uses Excedrin migraine, sometimes helps. Triptans not very helpful any more. New Labs/Imaging: n/a HEADACHE SCORES: Headache Questions 07/12/2021 07/17/2022 07/14/2023 ER visits since last office visit: 0 0 0 Hospital stays since last office visit 0 0 0 Limited ADLs in the last month: 7 5 9 Days missed from work or school in the last month: 1 0 0 Days headache pain free in the last month: 23 18 10 Days per month with ALL of the following symptoms - decreased productivity, light sensitivity and nausea: 5 5 9 Initial improvement of headache after botox injection at last visit: Not applicable, I did not have a botox injection at my last visit Not applicable, I did not have a botox injection at my last visit Not applicable, I did not have a botox injection at my last visit PRN medication usage in the last month: 7 7 15 Patient impression of improvement since last visit: Much improved Much improved Minimally worse HIT-6 07/12/2021 07/17/2022 07/14/2023 HIT-6 - - - HIT-6 61 (Severe impact) 56 (Substantial impact) 64 (Severe impact) GIL - 2/7 SCORES 07/12/2021 07/17/2022 07/14/2023 GIL-2 Score 2 2 0 GIL-7 Score - - - Migraine Specific QOL - Higher scores indicate better HRQL 09/17/2020 07/17/2022 07/14/2023 Role Function-Restrictive Transformed Score (range: 0-100) 0 80 62.86 Role Function-Preventive Transformed Score (range: 0-100) 0 80 70 Emotional Function Transformed Score (range: 0-100) 13.33 80 93.33 PHQ-9 09/21/2022 11/09/2022 07/14/2023 Score 8 10 6 MEDS: Current Outpatient Medications Medication Sig propranolol ER (INDERAL LA) 80 mg 24 hr capsule Take 1 capsule by mouth once daily. erenumab-aooe 140 mg/mL subcutaneous auto-injector (AIMOVIG) INJECT 140 MG SUBCUTANEOUSLY ONCE EVERY MONTH. SUMAtriptan (IMITREX) 20 mg/actuation nasal spray 1 spray in 1 nostril at migraine onset. May repeat once in 2 hours if needed. ZOLMitriptan (ZOMIG) 5 mg nasal spray 1 spray in 1 nostril at headache onset. May repeat once in 2 hour (more content not included)...[facility]08-09-2023 Evaluation note* Encounter Date Diagnosis Assessment Notes Treatment Notes Treatment Clinical Notes Jun, Hypertriglyceridemia (ICD-10 - E78.1) Discussed cholesterol results with patient today. Total is 195. HDL is 39. LDL is 100. Triglycerides are 281. VLDL is 56.2. She voices that she is not eating candy like she was. She feels like her diet is better and she is eating better. We discussed placing her on a low dose statin medication to see if this helps get better control of her cholesterol. She is agreeable to this. Guidance is given on how to take the medication. I would like her to have lab drawn 6 weeks after she starts this to be sure medication is not affecting her liver. In three months she will need to have lab repeated to check her cholesterol. Statin medication can amplify normal aches and pains but if she gets severe muscle pain she should let me know. We discussed her beginning a regular exercise regimen six days a week. Jun, Hyperglycemia (ICD-1 0 - R73.9) Discussed blood sugar results with patient today. Glucose is 114. HgA1C is up from 5.2 to 5.6. She voices that she is not eating candy any longer. I did recommend that she continue to monitor her intake of carbs and sugars. Stay active. I did recommend that she begin exercising and I would like her to do some type of aerobic exercise three days a week for 30 minutes and the alternate three days she should do some type of resistance training. She needs to work her way up to thirty minutes. Jun, Migraine (ICD-10 - G43.909) Continue with above medication as directed. Follow with specialist as directed. She goes to see Dr. Teran in September (2022) and was going to discuss the Propranolol dose with him because her blood pressure is elevated. She is not sure if this is caused by the Amovig or not. Jun, Degenerative disc disease, cervical (ICD-10 - M50.30) She does continue to use and benefit from the above medication. She is to call when she needs a refill on the medication. I will see her back in three months. Side effects/risks/leoncio efits of medication were reviewed. An OARRS report was printed and reviewed, no discrepancies noted. Frequent appointments needed due to addiction potential of medication. Pain inventory sheet completed and reviewed if opiod medication given. Pain contract is on file if pertinent. Patient will have office visits every three months for evaluation or sooner if needed. I discussed addiction potential of medication with the patient. Discussed with the patient and provided a treatment plan including the use of non-opiod analgesics and non-pharmacologic al intervention with patient if treated for pain. We have discussed realistic benefits and known risks of opiod/controlled therapy and the expected benefits for both pain and function. These benefits outweigh the risks. Patient has been counselled on the dangers of combining opiods/controlled prescriptions with alcohol or other sedatives and counseled on the safe storage and disposal of opiods/controlled prescriptions. Do not drive or operate heavy machinery after taking opiod/controlled medication. I have verified that no current substance abuse treatments are being prescribed. Jun, Chronic kidney disea (ICD-10 - N18.9) Discussed her kidney studies with her today. Her BUN is 20. Creatinine is 1.24. EGFR is 45. 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 Jun, Breast cancer screen ing (ICD-10 - Z12.31) Provided her with an order to have a bilateral mammogram done. [employer] Other 03-16-2023 Evaluation note* Encounter Date Diagnosis Assessment Notes Treatment Notes Treatment Clinical Notes Dec, Chronic kidney disea se, stage 3 unspecified (ICD-10 - N18.30) She has longstanding CKD likely due to the renovascular disease. Her baseline serum creatinine is 1.1-1.2 mg/dL. I discussed with the importance of good HTN control to surround the progression of CKD. Dec, Atrophic kidney (ICD -10 - N26.1) She has smaller right kidney likely due to the renal vascular disease. 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 She appears to be euvolemic. Continue current dose of propranolol Dec, Secondary hyperparathyroidism (ICD-10 - N25.81) MBD parameters including calcium, phosphorus and PTH are within the goal. She has a supratherapeutic vitamin D but denies any intake of the vitamin D. I have advised her to lower the vitamin D supplement Dec, Hypernatremia (ICD-1 0 - E87.0) She has hyponatremia due to the excessive free water deficit due to the swelling at her workplace. Advised her to adequately hydrate herself during the work. Dec, Hypomagnesemia (ICD- 10 - E83.42) Advised her to resume oral magnesium. [employer] Other 02-28-2023 Evaluation note* Encounter Date Diagnosis Assessment Notes Treatment Notes Treatment Clinical Notes Dec, Degenerative disc disease, cervical (ICD-10 - M50.30) [employer] Other 01-30-2023 Evaluation note* Encounter Date Diagnosis Assessment Notes Treatment Notes Treatment Clinical Notes Nov, Hypertriglyceridemia (ICD-10 - E78.1) Discussed cholesterol results with patient today. Total is 195. HDL is 42. LDL is 107. Triglycerides are 230. VLDL is 46. I would like her to continue to avoid the candy and intake of carbs. She is to stay active. Nov, Hyperglycemia (ICD-1 0 - R73.9) Her glucose is 112. HgA1C is 5.2 which is normal. She voices that she cut out her intake of candy. She is encouraged to continue with what she is doing as it is working well. Nov, Migraine (ICD-10 - G43.909) Continue with above medications as needed. Nov, Chronic kidney disea se (ICD-10 - N18.9) She has an appointment to see Dr. Plummer in December (2022). Her BUN is 17. Creatinine is 1.15. EGFR is 49. Stay hydrated with plenty of water. Nov, jail use of carine g (ICD-10 - Z79.899) Nov, Degenerative disc disease, cervical (ICD-10 - M50.30) An OARRS report was reviewed, no discrepancies noted. Frequent appointments needed due to addiction potential of medication. Pain inventory sheet completed and reviewed. She does continue to use and benefit from the above medication. I will see her back in three months. Side effects/risks/bene fits of medication were reviewed. She does not need a refill on the medication and will call when she runs low. She had an MRI of the cervical spine done earlier this month ordered by Dr. Mccauley who has advised her that she has gone as far as she can with Myrtle, and she should seek alternative treatments such as massotherapy, etc. She has not looked into anything else yet. 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 She does not work out to keep her strength up because her job is very physical. She ices her neck when she gets home. We discussed that her muscle mass will decrease by 3% each year from now on. She is active at work but I do recommend that she consider working out. Her employer has provided her with an oral that gives her different exercises she can do on her own at work. Massotherapy that was done at could cause her to have a migraine the following day so she has to use caution. Nov, Weight gain (ICD-10 - R63.5) She has gained 1/2 pound since last seen. Her TSH is normal at 1.092. Nov, Other She wears a compression stocking on her right foot because she found that it was swelling at times. [employer] Other [id number] Miscellaneous Notes* Telephone Encounter - Evelyne Radha - 11/24/2022 9:11 AM EST Physician: Call from patient requesting refill. Please E-Scribe Last office visit 07/24/2022 with in person Next office visit Not scheduled. Requested Prescriptions Pending Prescriptions Disp Refills propranolol ER (INDERAL LA) 80 mg 24 hr capsule 90 capsule 3 Sig: Take 1 capsule by mouth once daily. Pharmacy Name: [facility] Evelyne Garcia documented [facility]23 NoteHNO ID: [id number] Author: Anaid Mccauley APRN.STRATEGY ASSOCIATE Service: ? Author Type: Nurse Practitioner Type: Progress Notes Filed: 11/16/2022 1:30 PM Note Text: [facility] Neck Pain - Chronic (> 12 weeks) Initial Exam SUBJECTIVE HISTORY OF PRESENT ILLNESS: Myrtle Jones is a 57 year old female who presents with a chief complaint of neck and arm pain and is seen in consultation requested by Dr. Cresencio Robles for an opinion regarding neck pain. My final recommendations will be communicated back to the requesting physician by way of shared medical record or letter via US mail. Patient presents with neck pain worse in the last 4 mths. Denies accident/injury Pain localized to lower Cspine Pain described as aching Radiation: aching in forearms- no clear radicular symptoms Numbness/Tingling: none consistent Pain worse with activity Pain improved with nothing Interventions: topicals, ice Medications: tylenol prn, Previously on: elavil, cymbalta, nortriptyline, topomax, vicodin Physical Therapy: Online through [email or web address]. Started in April 2022- current Treating Physicians: Dr Robles Headache Neuro History of Spine Injections/Surgery: Cervical fusion C6-7 2001 and C5-[address] Pranay Melgoza No injections Hx: migraines, occipital neuralgia, HTN, CKD CC: Neck pain Patient follows up for her neck pain. Is here for MRI review and POC. Reports ongoing neck pain Localized to lower cervical spine. Also gets upper neck pain into migraines No radicular symptoms. Physical therapy 09/07/22- current . 1-2 times per week. PT making her migraines worse. Meds: baclofen prn Other Issues Addressed at the Visit Today: None. Precipitating Event: None PAIN EVALUATION 11/12/2022 1923 11/16/2022 1253 Pain Level: 7 3 Pain Location: Neck Neck-Posterior shoulders Description: Radiating;Sore;Stiffness -- Duration Amount of Time: -- 9 Duration Units: Months Months Frequency: Continuous Intermittent Intervention/Comfort measure: Medication;Relaxation;Cold -- Litigation: No Workers' Compensation: No YELLOW AND BLUE FLAGS No-Neg Attitude; Back Pain is Disabling No-Avoiding Activity (for Fear of Pain) No-Depression or Anxiety Disorders No-Social Problems No-Substance Use Disorder No-Job Dissatisfaction No-Financial Disincentives Patient Entered Questionnaires Spine Questions 07/24/2022 09/21/2022 11/09/2022 Pain Location: Upper back/torso Neck Upper back/torso Pain Duration: 3-6 months - - Pain over last 6 months: Every day or nearly every day in the past 6 months - - Symptoms from neck/cervical spine: Yes Yes Yes Employment Status: Working now - Working now Involved in law suit/legal claim: No - - Spine Red Flags 07/24/2022 11/09/2022 Any type of cancer: No No Unexplained fever: No No Bowel or bladder disfunction: No No Unintentional weight loss: No No Osteoporosis: No No Neck Questionnaires 07/24/2022 09/21/2022 11/09/2022 Benzel Modified MARINE Score 18 (A lower score indicates increased pain and issues.) 18 (A lower score indicates increased pain and issues.) 17 (A lower score indicates increased pain and issues.) PROMIS Score Percentiles Physical Health 07/24/2022 09/21/2022 11/09/2022 Physical Function Percentile 12 18* 16* Sleep Percentile 10 27* 27* Fatigue Percentile 8 12 24* Pain Interference Percentile 8 4 4 PROMIS SOCIAL ROLE SCORE 07/24/2022 09/21/2022 11/09/2022 Social Role Satisfaction Percentile 10 16* 14 PROMIS Global Health Scale 07/17/2022 07/24/2022 09/21/2022 Physical Health Percentile 41 15 10 Mental Health Percentile 26* 9 3 Percentiles provide an indication of how the patient's score ranks in relation to the general population. Higher percentile rankings indicate better function/quality of life. 50th percentile is the average of the general population and indicates half of respondents had a worse score. Depression Screening: PHQ-9 07/17/2022 09/21/2022 11/09/2022 Score 6 8 10 PHQ-9 Self Harm 07/17/2022 09/21/2022 11/09/2022 Question 9 Not at all Not at all Not at all PHQ-9 Self-Harm (Item 9) response options: 0 Not at all 1 Several days 2 More than half the days 3 Nearly every day PHQ-9 Levels: 0-4 No - mild depression 5-9 Mild depression 10-14 Moderate depression 15-19 Moderately severe depression 20-27 Severe depression ACTIVE PROBLEM LIST Chronic Daily Headache Chronic Migraine Without Aura, With Intractable Migraine, So Stated, With Status Migrainosus Medication Overuse Headache Chronic Neck Pain Bilateral Occipital Neuralgia Chronic Musculoskeletal Pain Intractable Chronic Migraine Without Aura and Without Status Migrainosus Migraine Without Aura and Without Status Migrainosus, Not Intractable Migraine With Aura and Without Status Migrainosus, Not Intractable Intractable Chronic Migraine Without Aura and With Status Migrainosus Cervicalgia PAST MEDICAL HISTORY Diagnos (more content not included)...[facility] [id number] Instructions* Patient Instructions* Anaid Mccauley APRN.CNP - 11/16/2022 1:14 PM EST Images from the original note were not included. Mychart with updates. documented in this encounterFair[facility] Center01-16-[facility]23 History of Present illness Narrative* Anaid Mccauley APRN.CNP - 11/16/2022 1:00 PM EST Images from the original note were not included. Spine Care Path Neck Pain - Chronic (> 12 weeks) Initial Exam SUBJECTIVE HISTORY OF PRESENT ILLNESS: Myrtle Jones is a 57 year old female who presents with a chief complaint of neck and arm pain and is seen in consultation requested by Dr. Cresencio Robles for an opinion regarding neck pain. My final recommendations will be communicated back to the requesting physician by way of shared medical record or letter via US mail. Patient presents with neck pain worse in the last 4 mths. Denies accident/injury Pain localized to lower Cspine Pain described as aching Radiation: aching in forearms- no clear radicular symptoms Numbness/Tingling: none consistent Pain worse with activity Pain improved with nothing Interventions: topicals, ice Medications: tylenol prn, Previously on: elavil, cymbalta, nortriptyline, topomax, vicodin Physical Therapy: Online through [email or web address]. Started in April 2022- current Treating Physicians: Dr Robles Headache Neuro History of Spine Injections/Surgery: Cervical fusion C6-7 2001 and C5-[address] Pranay Melgoza No injections Hx: migraines, occipital neuralgia, HTN, CKD CC: Neck pain Patient follows up for her neck pain. Is here for MRI review and POC. Reports ongoing neck pain Localized to lower cervical spine. Also gets upper neck pain into migraines No radicular symptoms. Physical therapy 09/07/22- current . 1-2 times per week. PT making her migraines worse. Meds: baclofen prn Other Issues Addressed at the Visit Today: None. Precipitating Event: None PAIN EVALUATION 11/12/2022 1923 11/16/2022 1253 Pain Level: 7 3 Pain Location: Neck Neck-Posterior shoulders Description: Radiating;Sore;Stiffness -- Duration Amount of Time: -- 9 Duration Units: Months Months Frequency: Continuous Intermittent Intervention/Comfort measure: Medication;Relaxation;Cold -- Litigation: No Workers' Compensation: No YELLOW & BLUE FLAGS No-Neg Attitude; Back Pain is Disabling No-Avoiding Activity (for Fear of Pain) No-Depression or Anxiety Disorders No-Social Problems No-Substance Use Disorder No-Job Dissatisfaction No-Financial Disincentives Patient Entered Questionnaires Spine Questions 07/24/2022 09/21/2022 11/09/2022 Pain Location: Upper back/torso Neck Upper back/torso Pain Duration: 3-6 months - - Pain over last 6 months: Every day or nearly every day in the past 6 months - - Symptoms from neck/cervical spine: Yes Yes Yes Employment Status: Working now - Working now Involved in law suit/legal claim: No - - Spine Red Flags 07/24/2022 11/09/2022 Any type of cancer: No No Unexplained fever: No No Bowel or bladder disfunction: No No Unintentional weight loss: No No Osteoporosis: No No Neck Questionnaires 07/24/2022 09/21/2022 11/09/2022 Benzel Modified MARINE Score 18 (A lower score indicates increased pain and issues.) 18 (A lower scoreindicates increased pain and issues.) 17 (A lower score indicates increased pain and issues.) PROMIS Score Percentiles Physical Health 07/24/2022 09/21/2022 11/09/2022 Physical Function Percentile 12 18* 16* Sleep Percentile 10 27* 27* Fatigue Percentile 8 12 24* Pain Interference Percentile 8 4 4 PROMIS SOCIAL ROLE SCORE 07/24/2022 09/21/2022 11/09/2022 Social Role Satisfaction Percentile 10 16* 14 PROMIS Global Health Scale 07/17/2022 07/24/2022 09/21/2022 Physical Health Percentile 41 15 10 Mental Health Percentile 26* 9 3 Percentiles provide an indication of how the patient's score ranks in relation to the general population. Higher percentile rankings indicate better function/quality of life. 50th percentile is the average of the general population and indicates half of respondents had a worse score. Depression Screening: PHQ-9 07/17/2022 09/21/2022 11/09/2022 Score 6 8 10 PHQ-9 Self Harm 07/17/2022 09/21/2022 11/09/2022 Question 9 Not at all Not at all Not at all PHQ-9 Self-Harm (Item 9) response options: 0 Not at all 1 Several days 2 More than half the days 3 Nearly every day PHQ-9 Levels: 0-4 No - mild depression 5-9 Mild depression 10-14 Moderate depression 15-19 Moderately severe depression 20-27 Severe depression ACTIVE PROBLEM LIST Chronic Daily Headache Chronic Migraine Without Aura, With Intractable Migraine, So Stated, With Status Migrainosus Medication Overuse Headache Chronic Neck Pain Bilateral Occipital Neuralgia Chronic Musculoskeletal Pain Intractable Chronic Migraine Without Aura and Without Status Migrainosus Migraine Without Aura and Without Status Migrainosus, Not Intractable Migraine With Aura and Without Status Migrainosus, Not Intractable Intractable Chronic Migraine Without Aura and With Status Migrainosus Cervicalgia PAST MEDICAL HISTORY Diagnosis Date Cervicalgia Migraine with aura PAST SURGICAL HISTORY Procedure Laterality Date PAST SURGICAL HISTORY OF Cervical spine fusion C5-6 PAST SURGICAL HISTORY OF CTS b/l PAST SURGICAL HISTORY OF Hysterectomy PAST SURGICAL HISTORY OF Lasik PAST SURGICAL HISTORY OF L elbow Social History Tobacco Use Smoking status: Never Smokeless tobacco: Never Substance Use Topics Alcohol use: Yes Comment: Infrequent Drug use: Yes Comment: Cup coffee/d FAMILY HISTORY Problem Relation Age of Onset other (Migraine [Other]) Mother other (Migraine [Other]) Daughter other (Migraine [Other]) Brother other (Migraine [Other]) Sister ALLERGIES Allergen Reactions Topamax [Topiramate] Mental Status Change CURRENT MEDICATIONS: erenumab-aooe 140 mg/mL subcutaneous auto-injector (AIMOVIG) INJECT 140 MG SUBCUTANEOUSLY ONCE EVERY MONTH. SUMAtriptan (IMITREX) 20 mg/actuation nasal spray 1 spray in 1 nostril at migraine onset. May repeat once in 2 hours if needed. propranolol ER (INDERAL LA) 80 mg 24 hr capsule Take 1 capsule by mouth once daily. ZOLMitriptan (ZOMIG) 5 mg nasal spray 1 spray in 1 nostril at headache onset. May repeat once in 2 hours if needed. Give max sprays allowed per insurance. rizatriptan (MAXALT) 10 mg tablet 1 tab at earliest sign of migraine. May repeat once in 2 hours ifneeded. Give max allowed per insurance. scopolamine (TRANSDERM-SCOP) 1.5 mg (1 mg over 3 days) Apply 1 Patch as directed every 72 hours. APPLY 1 DISC BEHIND THE EAR AT LEAST 4 HOURS PRIOR TO EXPOSURE AND EVERY 3 DAYS NEEDED. Ascorbic Acid 1,000 mg tablet Take 1,000 mg by mouth once daily. ONDANSETRON HCL (ZOFRAN ORAL) Take 4 mg by mouth as needed. CYANOCOBALAMIN, VITAMIN B-12, (VITAMIN B-12 ORAL) Take by mouth. REVIEW OF SYSTEMS: PAIN ASSESSMENT: See HPI. GENERAL: Denies fever, chills malaise and weight loss. HEENT: No recent change in vision or hearing. CARDIOVASCULAR: Denies chest pain, history of A-fib, valvular disease, or pacemaker/ICD. RESPIRATORY: Denies SOB, sputum production, and hemoptysis. GI: Denies GI ulcers, inflammatory disease, or liver disease. : Denies change in frequency or urgency, kidney disease, and burning with urination. MUSCULOSKELETAL: Positive for See HPI SKIN: Denies rash or itching. PSYCHOLOGICAL: Denies uncontrolled depression or anxiety. NEURO: Denies CVA, seizures, headaches. ENDOCRINE: Denies diabetes, thyroid disease. HEMATOLOGY/LYMPHOLOGY: Denies cancer, bleeding or clotting disorders, anemia,and DVT's. ALLERGIC/IMMUNOLOGICAL: Denies risks for infection, or recent MRSA infections. OBJECTIVE: PHYSICAL EXAM BP 147/89 Pulse 76 Ht 170.2 cm (5' 7 ) Wt 78.5 kg (173 lb) BMI 27.10 kg/m RIGHT LEFT Rotation Full ROM without pain Limited ROM with pain Lateral Bend Limited ROM with pain Full ROM without pain Upper Body Reflex Exam RIGHT LEFT Reflex Status Reflex Status Biceps 2+ Normal 2+ Normal Triceps 2+ Normal 2+ Normal Brachioradialis 2+ Normal 2+ Normal Inverted Radial 2+ Normal 2+ Normal Mckeon's Sign absent absent Upper Extremity Strength RIGHT LEFT Strength (MMT) Strength (MMT) Shoulder Abduction 5/5 5/5 Biceps 5/5 5/5 Triceps 5/5 5/5 Resisted Suppination 5/5 -5/5 Wrist Extension 5/5 5/5 Interossei 5/5 5/5 Shoulder Range of Motion RIGHT LEFT Flexion Normal Normal Extension Normal Normal Abduction Normal Normal Adduction Normal Normal Internal Rotation Normal Normal External Rotation Normal Normal Shoulder Tests Neer Impingement Sign - Negative NEUROSENSORY: Soft touch; Within Normal Limits Neuro Tests: None Data Review: Imaging and outside records independently reviewed and findings are as follows : Xr Cerivcal May 2022: hardware/fusion in good position. Some stable degenerative changes above andbelow fusion XR Thoracic May 2022: spondylosis in mid thoracic spine. Mri Cervical 11/16/22: Postoperative and spondylotic changes without high-grade bony canal or foraminal compromise, as detailed ASSESSMENT/PLAN Patient with chronic neck pain. No clear radicular pain. No improvement with PT. Pain localized to C5-6, C6-7 alaniz. Hold on injections. Explained I wasn't sure how helpful they would be. She does have a lot of muscular pain. Will continue to trial alternative treatments at this time. 1. Imaging: MRI Cervical and same day FU with me 2. Physical Therapy: continue HEP 3. Medication: trial zanaflex 4. Referrals: PT 5. Considerations: C7-T1 facet block (discuss with gregory), TONB 6. Follow up: update on mychart documented in [facility]01-13-[facility]23 Miscellaneous Notes* Telephone Encounter - Lori Palmer - 11/13/2022 2:14 PM EST MRI- 11/16/2022 @ 1040am Appointment reminder call - LEFT MESSAGE - with directions to office and the # to call if they cannot keep this appointment [phone] documented in this encounterFair[facility] Center12-08-2022 Miscellaneous Notes* Telephone Encounter - Salma Callejas RN - 10/08/2022 8:31 AM EST Ambulatory Pharmacy Prior Authorization Note Provider Intervention Required?: No- Pharmacy completed on your behalf. Drug: Aimovig 140MG/ML auto-injectors Cover My Meds Palafox: [id number] Determination: Approved Prior Authorization/Case #: n/a Prior Authorization Expiration: 10/06/23 Time to PA Submission in CMM: 15 min Time to PA Determination in CMM: Same day Additional Information: PLEASE NOTE: Pt will need follow up office visit to review/document efficacy and tolerability of treatment before prior auth expiration. Please ensure a future follow up appt is scheduled with your patient. This will ensure no interruption in patient's ability to obtain medic ation refills. Prescriptions will now be processed through [facility] for determination of next steps. For questions relating to this submission, please contact [facility] [phone] * Telephone Encounter - Salma Callejas RN - 10/06/2022 2:56 PM EST [facility] received prescription(s) for Aimovig 140MG/ML auto-injectors . Benefits investigation was conducted, indicating that a prior authorization is required. PA was initiated and pending review through [employer]. All pertinent clinical information was submitted to insurance. CMM Palafox: [id number] Ordering Provider: DO Júnior Jara Alisha, RN [facility] P: , F: documented in this encounterFairfield [facility] Center11-28-2022 NoteHNO ID: [id number] Author: Anaid Mccauley APRN.STRATEGY ASSOCIATE Service: ? Author Type: Nurse Practitioner Type: Progress Notes Filed: 09/29/2022 7:28 AM Note Text: Spine Care Path Neck Pain - Chronic (> 12 weeks) Initial Exam SUBJECTIVE HISTORY OF PRESENT ILLNESS: Myrtle Jones is a 57 year old female who presents with a chief complaint of neck and arm pain and is seen in consultation requested by Dr. Cresencio Robles for an opinion regarding neck pain. My final recommendations will be communicated back to the requesting physician by way of shared medical record or letter via US mail. Patient presents with neck pain worse in the last 4 mths. Denies accident/injury Pain localized to lower Cspine Pain described as aching Radiation: aching in forearms- no clear radicular symptoms Numbness/Tingling: none consistent Pain worse with activity Pain improved with nothing Interventions: topicals, ice Medications: tylenol prn, Previously on: elavil, cymbalta, nortriptyline, topomax, vicodin Physical Therapy: Online through insurance [employer]. Started in April 2022- current Treating Physicians: Dr Robles Headache Neuro History of Spine Injections/Surgery: Cervical fusion C6-7 2001 and C5-[address] Pranay Melgoza No injections Hx: migraines, occipital neuralgia, HTN, CKD CC: Neck pain Patient follows up VIA [facility]IRT[facility] visit for her neck. Reports ongoing neck pain Localized to lower cervical spine. Also gets upper neck pain into migraines No radicular symptoms. Physical therapy 09/07/22- current . 1-2 times per week. PT making her migraines worse. Other Issues Addressed at the Visit Today: None. Precipitating Event: None PAIN EVALUATION No data found in the last 1 encounters. Litigation: No Workers' Compensation: No YELLOW AND BLUE FLAGS No-Neg Attitude; Back Pain is Disabling No-Avoiding Activity (for Fear of Pain) No-Depression or Anxiety Disorders No-Social Problems No-Substance Use Disorder No-Job Dissatisfaction No-Financial Disincentives Patient Entered Questionnaires Spine Questions 07/24/2022 09/21/2022 Pain Location: Upper back/torso Neck Pain Duration: 3-6 months - Pain over last 6 months: Every day or nearly every day in the past 6 months - Symptoms from neck/cervical spine: Yes Yes Employment Status: Working now - Involved in law suit/legal claim: No - Spine Red Flags 07/24/2022 Any type of cancer: No Unexplained fever: No Bowel or bladder disfunction: No Unintentional weight loss: No Osteoporosis: No Neck Questionnaires 07/24/2022 09/21/2022 Benzel Modified MARINE Score 18 (A lower score indicates increased pain and issues.) 18 (A lower score indicates increased pain and issues.) PROMIS Score Percentiles Physical Health 07/24/2022 09/21/2022 Physical Function Percentile 12 18* Sleep Percentile 10 27* Fatigue Percentile 8 12 Pain Interference Percentile 8 4 PROMIS SOCIAL ROLE SCORE 07/24/2022 09/21/2022 Social Role Satisfaction Percentile 10 16* PROMIS Global Health Scale 07/17/2022 07/24/2022 09/21/2022 Physical Health Percentile 41 15 10 Mental Health Percentile 26* 9 3 Percentiles provide an indication of how the patient's score ranks in relation to the general population. Higher percentile rankings indicate better function/quality of life. 50th percentile is the average of the general population and indicates half of respondents had a worse score. Depression Screening: PHQ-9 07/12/2021 07/17/2022 09/21/2022 Score 7 6 8 PHQ-9 Self Harm 07/12/2021 07/17/2022 09/21/2022 Question 9 Several days Not at all Not at all PHQ-9 Self-Harm (Item 9) response options: 0 Not at all 1 Several days 2 More than half the days 3 Nearly every day PHQ-9 Levels: 0-4 No - mild depression 5-9 Mild depression 10-14 Moderate depression 15-19 Moderately severe depression 20-27 Severe depression ACTIVE PROBLEM LIST Chronic Daily Headache Chronic Migraine Without Aura, With Intractable Migraine, So Stated, With Status Migrainosus Medication Overuse Headache Chronic Neck Pain Bilateral Occipital Neuralgia Chronic Musculoskeletal Pain Intractable Chronic Migraine Without Aura and Without Status Migrainosus Migraine Without Aura and Without Status Migrainosus, Not Intractable Migraine With Aura and Without Status Migrainosus, Not Intractable Intractable Chronic Migraine Without Aura and With Status Migrainosus Cervicalgia PAST MEDICAL HISTORY Diagnosis Date Cervicalgia Migraine with aura PAST SURGICAL HISTORY Procedure Laterality Date PAST SURGICAL HISTORY OF Cervical spine fusion C5-6 PAST SURGICAL HISTORY OF CTS b/l PAST SURGICAL HISTORY OF Hysterectomy PAST SURGICAL HISTORY OF Lasik PAST SURGICAL HISTORY OF L elbow Social History Tobacco Use Smoking status: Never Smokeless tobacco: Never Substance Use Topics Alcohol use: Yes Comment: Infrequent Drug use: Yes Comment: Cup co (more content not included)...[facility] [id number] History of Present illness Narrative* Anaid Mccauley APRN.STRATEGY ASSOCIATE - 09/28/2022 5:06 PM EST Spine Care Path Neck Pain - Chronic (> 12 weeks) Initial Exam SUBJECTIVE HISTORY OF PRESENT ILLNESS: Myrtle Jones is a 57 year old female who presents with a chief complaint of neck and arm pain and is seen in consultation requested by Dr. Cresencio Robles for an opinion regarding neck pain. My final recommendations will be communicated back to the requesting physician by way of shared medical record or letter via US mail. Patient presents with neck pain worse in the last 4 mths. Denies accident/injury Pain localized to lower Cspine Pain described as aching Radiation: aching in forearms- no clear radicular symptoms Numbness/Tingling: none consistent Pain worse with activity Pain improved with nothing Interventions: topicals, ice Medications: tylenol prn, Previously on: elavil, cymbalta, nortriptyline, topomax, vicodin Physical Therapy: Online through [email or web address]. Started in April 2022- current Treating Physicians: Dr Baron Lynn Neuro History of Spine Injections/Surgery: Cervical fusion C6-7 2001 and C5-[address] Pranay Melgoza No injections Hx: migraines, occipital neuralgia, HTN, CKD CC: Neck pain Patient follows up VIA VIRTUAL visit for her neck. Reports ongoing neck pain Localized to lower cervical spine. Also gets upper neck pain into migraines No radicular symptoms. Physical therapy 09/07/22- current . 1-2 times per week. PT making her migraines worse. Other Issues Addressed at the Visit Today: None. Precipitating Event: None PAIN EVALUATION No data found in the last 1 encounters. Litigation: No Workers' Compensation: No YELLOW & BLUE FLAGS No-Neg Attitude; Back Pain is Disabling No-Avoiding Activity (for Fear of Pain) No-Depression or Anxiety Disorders No-Social Problems No-Substance Use Disorder No-Job Dissatisfaction No-Financial Disincentives Patient Entered Questionnaires Spine Questions 07/24/2022 09/21/2022 Pain Location: Upper back/torso Neck Pain Duration: 3-6 months - Pain over last 6 months: Every day or nearly every day in the past 6 months - Symptoms from neck/cervical spine: Yes Yes Employment Status: Working now - Involved in law suit/legal claim: No - Spine Red Flags 07/24/2022 Any type of cancer: No Unexplained fever: No Bowel or bladder disfunction: No Unintentional weight loss: No Osteoporosis: No Neck Questionnaires 07/24/2022 09/21/2022 Benzel Modified MARINE Score 18 (A lower score indicates increased pain and issues.) 18 (A lower scoreindicates increased pain and issues.) PROMIS Score Percentiles Physical Health 07/24/2022 09/21/2022 Physical Function Percentile 12 18* Sleep Percentile 10 27* Fatigue Percentile 8 12 Pain Interference Percentile 8 4 PROMIS SOCIAL ROLE SCORE 07/24/2022 09/21/2022 Social Role Satisfaction Percentile 10 16* PROMIS Global Health Scale 07/17/2022 07/24/2022 09/21/2022 Physical Health Percentile 41 15 10 Mental Health Percentile 26* 9 3 Percentiles provide an indication of how the patient's score ranks in relation to the general population. Higher percentile rankings indicate better function/quality of life. 50th percentile is the average of the general population and indicates half of respondents had a worse score. Depression Screening: PHQ-9 07/12/2021 07/17/2022 09/21/2022 Score 7 6 8 PHQ-9 Self Harm 07/12/2021 07/17/2022 09/21/2022 Question 9 Several days Not at all Not at all PHQ-9 Self-Harm (Item 9) response options: 0 Not at all 1 Several days 2 More than half the days 3 Nearly every day PHQ-9 Levels: 0-4 No - mild depression 5-9 Mild depression 10-14 Moderate depression 15-19 Moderately severe depression 20-27 Severe depression ACTIVE PROBLEM LIST Chronic Daily Headache Chronic Migraine Without Aura, With Intractable Migraine, So Stated, With Status Migrainosus Medication Overuse Headache Chronic Neck Pain Bilateral Occipital Neuralgia Chronic Musculoskeletal Pain Intractable Chronic Migraine Without Aura and Without Status Migrainosus Migraine Without Aura and Without Status Migrainosus, Not Intractable Migraine With Aura and Without Status Migrainosus, Not Intractable Intractable Chronic Migraine Without Aura and With Status Migrainosus Cervicalgia PAST MEDICAL HISTORY Diagnosis Date Cervicalgia Migraine with aura PAST SURGICAL HISTORY Procedure Laterality Date PAST SURGICAL HISTORY OF Cervical spine fusion C5-6 PAST SURGICAL HISTORY OF CTS b/l PAST SURGICAL HISTORY OF Hysterectomy PAST SURGICAL HISTORY OF Lasik PAST SURGICAL HISTORY OF L elbow Social History Tobacco Use Smoking status: Never Smokeless tobacco: Never Substance Use Topics Alcohol use: Yes Comment: Infrequent Drug use: Yes Comment: Cup coffee/d FAMILY HISTORY Problem Relation Age of Onset other (Migraine [Other]) Mother other (Migraine [Other]) Daughter other (Migraine [Other]) Brother other (Migraine [Other]) Sister ALLERGIES Allergen Reactions Topamax [Topiramate] Mental Status Change CURRENT MEDICATIONS: erenumab-aooe 140 mg/mL subcutaneous auto-injector (AIMOVIG) INJECT 140 MG SUBCUTANEOUSLY ONCE EVERY MONTH. SUMAtriptan (IMITREX) 20 mg/actuation nasal spray 1 spray in 1 nostril at migraine onset. May repeat once in 2 hours if needed. propranolol ER (INDERAL LA) 80 mg 24 hr capsule Take 1 capsule by mouth once daily. ZOLMitriptan (ZOMIG) 5 mg nasal spray 1 spray in 1 nostril at headache onset. May repeat once in 2 hours if needed. Give max sprays allowed per insurance. rizatriptan (MAXALT) 10 mg tablet 1 tab at earliest sign of migraine. May repeat once in 2 hours ifneeded. Give max allowed per insurance. scopolamine (TRANSDERM-SCOP) 1.5 mg (1 mg over 3 days) Apply 1 Patch as directed every 72 hours. APPLY 1 DISC BEHIND THE EAR AT LEAST 4 HOURS PRIOR TO EXPOSURE AND EVERY 3 DAYS NEEDED. Ascorbic Acid (VITAMIN C) 1,000 mg tablet Take 1,000 mg by mouth once daily. ONDANSETRON HCL (ZOFRAN ORAL) Take 4 mg by mouth as needed. CYANOCOBALAMIN, VITAMIN B-12, (VITAMIN B-12 ORAL) Take by mouth. REVIEW OF SYSTEMS: PAIN ASSESSMENT: See HPI. GENERAL: Denies fever, chills malaise and weight loss. HEENT: No recent change in vision or hearing. CARDIOVASCULAR: Denies chest pain, history of A-fib, valvular disease, or pacemaker/ICD. RESPIRATORY: Denies SOB, sputum production, and hemoptysis. GI: Denies GI ulcers, inflammatory disease, or liver disease. : Denies change in frequency or urgency, kidney disease, and burning with urination. MUSCULOSKELETAL: Positive for See HPI SKIN: Denies rash or itching. PSYCHOLOGICAL: Denies uncontrolled depression or anxiety. NEURO: Denies CVA, seizures, headaches. ENDOCRINE: Denies diabetes, thyroid disease. HEMATOLOGY/LYMPHOLOGY: Denies cancer, bleeding or clotting disorders, anemia,and DVT's. ALLERGIC/IMMUNOLOGICAL: Denies risks for infection, or recent MRSA infections. OBJECTIVE: PHYSICAL EXAM There were no vitals taken for this visit. GENERAL APPEARANCE: Well appearing, well-hydrated, well nourished and alert SKIN: Head, neck, trunk, and extremities dry, intact and without lesions LUNGS: even and non-labored breathing, normal chest excursion NEURO/PSYCH: oriented to time, place, and person, speech normal, mental status intact Neuro Tests: None Data Review: Imaging and outside records independently reviewed and findings are as follows : Xr Cerivcal May 2022: hardware/fusion in good position. Some stable degenerative changes above andbelow fusion XR Thoracic May 2022: spondylosis in mid thoracic spine. ASSESSMENT/PLAN Cervicalgia History of fusion of cervical spine Cervical spondylosis Spinal stenosis of cervical region (primary encounter diagnosis) Patient with chronic neck pain. No clear radicular pain. No improvement with PT. If anything feels worse. Recommend MRI for further review and interventional planning. 1. Imaging: MRI Cervical and same day FU with me 2. Physical Therapy: continue HEP 3. Medication: refilled baclofen prn for pain 4. Referrals: PT 5. Considerations: facet blocks 6. Follow up: after MRI completed Medical Decision Making: Level: 3 - Low [facility] History of Present illness Narrative* Kayla Wakefield - 09/11/2022 3:24 PM EST POPULATION HEALTH NAVIGATION OUTREACH Action/I RP Outreach: Patient Declined, is going elsewhere for PT. Pt identified by name and : YES, via phone Outreach Outcome/Action Spoke to patient or caregiver: Patient declined Did you use a PCP flex slot to schedule this appointment? No Reason for Outreach Care Gap or Scheduling/Wellness visits Payer: Payor: FRANK / Plan: BLUE CARD PPO OOS / Product Type: PPO / Care Gap Reviewed:: N/A Reminder: Reminder note to check Health Maintenance for items below Health Maintenance items due: HEPATITIS B(1 of 3 - 3-dose series) Never done COVID-19 VACCINE(1) Never done HEPATITIS C SCREENING Never done HIV SCREENING Never done DTAP,TDAP,TD(1 - Tdap) Never done PAP TESTING Never done HPV TESTING Never done MAMMOGRAM Never done LIPID SCREEN Never done DIABETES SCREEN Never done COLORECTAL CANCER SCREENING Never done SHINGRIX VACCINE(1 of 2) Never done DEPRESSION ASSESSMENT Never done INFLUENZA(1) Never done Message Sent to Practice: No Navigation Signature: Kayla Wakefield September 11, 2022 3:24 PM documented in [facility]10[facility] Evaluation note* Encounter Date Diagnosis Assessment Notes Treatment Notes Treatment Clinical Notes Aug, Degenerative disc disease, cervical (ICD-10 - M50.30) She voices that her neck continues to hurt, she has bad days, and then she has somewhat bad days, it is never pain free. She went and saw Anaid Mccauley from [facility] and she would like to do a conservative approach to include PT now and then possibly schedule an MRI at the end of September. She has not scheduled PT yet because she is barely making it through her work shift. She was going to see Alexander Dyer for physical therapy. An OARRS report was reviewed no discrepancies noted. Frequent appointments needed due to addiction potential of medication. Pain inventory sheet completed orally and reviewed. She takes 1/2 tablet of pain medication daily during the week if needed. I will provide her with a refill. Side effects/risks/benef its of medication were reviewed. I will see her back in three months. Aug, Other 2:50 PM - 2:57 PM [facility] Other 09-28-2022 Evaluation note* Encounter Date Diagnosis Assessment Notes Treatment Notes Treatment Clinical Notes Jul, Degenerative disc disease, cervical (ICD-10 - M50.30) [facility] Other 09-27-2022 NoteHNO ID: [id number] Author: Anaid Mccauley APRN.STRATEGY ASSOCIATE Service: ? Author Type: Nurse Practitioner Type: Progress Notes Filed: 07/28/2022 8:47 AM Note Text: [facility] Neck Pain - Chronic (> 12 weeks) Initial Exam SUBJECTIVE HISTORY OF PRESENT ILLNESS: Myrtle Jones is a 57 year old female who presents with a chief complaint of neck and arm pain and is seen in consultation requested by Dr. Cresencio Robles for an opinion regarding neck pain. My final recommendations will be communicated back to the requesting physician by way of shared medical record or letter via US mail. Patient presents with neck pain worse in the last 4 mths. Denies accident/injury Pain localized to lower Cspine Pain described as aching Radiation: aching in forearms- no clear radicular symptoms Numbness/Tingling: none consistent Pain worse with activity Pain improved with nothing Interventions: topicals, ice Medications: tylenol prn, Previously on: elavil, cymbalta, nortriptyline, topomax, vicodin Physical Therapy: Online through [email or web address]. Started in April 2022- current Treating Physicians: Dr Baron Lynn Neuro History of Spine Injections/Surgery: Cervical fusion C6-7 2001 and C5-[address] Pranay Melgoza No injections Hx: migraines, occipital neuralgia, HTN, CKD Other Issues Addressed at the Visit Today: None. Precipitating Event: None PAIN EVALUATION 07/28/2022 0746 Pain Level: 7 Pain Location: Neck radiaites into both foreams Description: Sharp;Shooting;Pressure;Aching Duration Amount of Time: 4 Duration Units: Months Frequency: Continuous Intervention/Comfort measure: Medication Litigation: No Workers' Compensation: No YELLOW AND BLUE FLAGS No-Neg Attitude; Back Pain is Disabling No-Avoiding Activity (for Fear of Pain) No-Depression or Anxiety Disorders No-Social Problems No-Substance Use Disorder No-Job Dissatisfaction No-Financial Disincentives Patient Entered Questionnaires Spine Questions 07/24/2022 Pain Location: Upper back/torso Pain Duration: 3-6 months Pain over last 6 months: Every day or nearly every day in the past 6 months Symptoms from neck/cervical spine: Yes Employment Status: Working now Involved in law suit/legal claim: No Spine Red Flags 07/24/2022 Any type of cancer: No Unexplained fever: No Bowel or bladder disfunction: No Unintentional weight loss: No Osteoporosis: No Neck Questionnaires 07/24/2022 Benzel Modified MARINE Score 18 (A lower score indicates increased pain and issues.) PROMIS Score Percentiles Physical Health 07/24/2022 Physical Function Percentile 12 Sleep Percentile 10 Fatigue Percentile 8 Pain Interference Percentile 8 PROMIS SOCIAL ROLE SCORE 07/24/2022 Social Role Satisfaction Percentile 10 PROMIS Global Health Scale 07/12/2021 07/17/2022 07/24/2022 Physical Health Percentile 53 41 15 Mental Health Percentile 26* 26* 9 Percentiles provide an indication of how the patient's score ranks in relation to the general population. Higher percentile rankings indicate better function/quality of life. 50th percentile is the average of the general population and indicates half of respondents had a worse score. Depression Screening: PHQ-9 01/27/2021 07/12/2021 07/17/2022 Score 0 7 6 PHQ-9 Self Harm 01/27/2021 07/12/2021 07/17/2022 Question 9 Not at all Several days Not at all PHQ-9 Self-Harm (Item 9) response options: 0 Not at all 1 Several days 2 More than half the days 3 Nearly every day PHQ-9 Levels: 0-4 No - mild depression 5-9 Mild depression 10-14 Moderate depression 15-19 Moderately severe depression 20-27 Severe depression ACTIVE PROBLEM LIST Chronic Daily Headache Chronic Migraine Without Aura, With Intractable Migraine, So Stated, With Status Migrainosus Medication Overuse Headache Chronic Neck Pain Bilateral Occipital Neuralgia Chronic Musculoskeletal Pain Intractable Chronic Migraine Without Aura and Without Status Migrainosus Migraine Without Aura and Without Status Migrainosus, Not Intractable Migraine With Aura and Without Status Migrainosus, Not Intractable Intractable Chronic Migraine Without Aura and With Status Migrainosus Cervicalgia PAST MEDICAL HISTORY Diagnosis Date Cervicalgia Migraine with aura PAST SURGICAL HISTORY Procedure Laterality Date PAST SURGICAL HISTORY OF Cervical spine fusion C5-6 PAST SURGICAL HISTORY OF CTS b/l PAST SURGICAL HISTORY OF Hysterectomy PAST SURGICAL HISTORY OF Lasik PAST SURGICAL HISTORY OF L elbow Social History Tobacco Use Smoking status: Never Smokeless tobacco: Never Substance Use Topics Alcohol use: Yes Comment: Infrequent Drug use: Yes Comment: Cup coffee/d FAMILY HISTORY Problem Relation Age of Onset other (Migraine [Other]) Mother other (Migraine [Other]) Daughter other (Migraine [Other]) Brother other (Migraine [Other]) Sister ALLERGIES Allergen Reactio (more content not included)...[id number] History of Present illness Narrative* Cresencio Robles DO - 07/24/2022 3:35 PM EDT [facility] - Follow-up Visit ASSESSMENT: 57 year old female with history significant for HTN, migraine with aura, migraine without aura, chronic neck pain s/p fusion x 2, chronic musculoskeletal pain, and chronic daily headache consistent with chronic migraine with additional cervical musculoskeletal and occipital neuralgia contributors. She is doing significantly better on Aimovig going from 25+ days/month of headache down to about 3 milder migraines/month with less severity. PLAN: (Please see typed patient instructions for detailed instructions) ---> Acute Treatment: -Zomig ns vs. Maxalt, no more than 10 days per month. Insurance is now denying Zomig ns until she tries Imitrex ns, so I have sent that. ---> Preventive Treatment: -Aimovig 140 mg per month. -Propranolol 80 mg ER daily (BP and migraines). Myrtle Jones has been previously approved for Calcitonin Gene Related Peptide Monoclonal Antibody (CGRP MAB) (Erenumab). The patient has demonstrated the following: Patient reduction in overall migraine days: Yes Patient reduction in moderate-severe migraine days: Yes Individual has obtained clinical benefit deemed significant by individual or prescriber: Yes Patient's quality of life and ability to perform ADLs has improved: Yes We suggest the patient continue treatment with CGRP MAB Erenumab. The following preventative medications have been tried for three or more months without benefit: Anti-Convulsant Topiramate (Topamax, Trokendi XL, Qudexy) Anti-Depressant and Antipsychotic Amitriptyline (Elavil) Duloxetine (Cymbalta) Nortriptyline (Pamelor, Aventyl) Blood Pressure Propranolol (Inderal) Timolol MABs Erenumab (Aimovig) Galcanezumab (Emgality) Botulinum Toxin Onabotulimum Toxin A (Botox) The following abortive medications have been tried but require high frequency use which can lead toMedication Overuse Headache: Analgesic Butalbital/acetaminophen/caffeine (Fioricet) Hydrocodone/Acetaminophen (Vicodin, [place]) Anti-Migraine Dihydroergotamine (DHE-45, Migranal) Rizatriptan (Maxalt) Sumatriptan (Imitrex, Sumavel) Zolmitriptan (Zomig) Over the Counter Medications Acetaminophen (Tylenol) Acetaminophen/Aspirin/Caffeine (Excedrin, Goody s) Ibuprofen (Advil, Motrin) ---> Follow-up: 12 months. Last visit: 07/18/21 Interval Headache Hx: Doing well on Aimovig, down to 3 migraine days per month. New Labs/Imaging: N/A HEADACHE SCORES: Headache Questions 01/27/2021 07/12/2021 07/17/2022 ER visits since last office visit: 0 0 0 Hospital stays since last office visit 0 0 0 Limited ADLs in the last month: 3 7 5 Days missed from work or school in the last month: - 1 0 Days headache pain free in the last month: 28 23 18 Days per month with ALL of the following symptoms - decreased productivity, light sensitivity and nausea: 1 5 5 Initial improvement of headache after botox injection at last visit: Not applicable, I did not havea botox injection at my last visit Not applicable, I did not have a botox injection at my last visit Not applicable, I did not have a botox injection at my last visit PRN medication usage in the last month: 3 7 7 Patient impression of improvement since last visit: Minimally worse Much improved Much improved HIT-6 01/27/2021 07/12/2021 07/17/2022 HIT-6 - - - HIT-6 63 (Severe impact) 61 (Severe impact) 56 (Substantial impact) GIL - 2/7 SCORES 01/27/2021 07/12/2021 07/17/2022 GIL-2 Score 0 2 2 GIL-7 Score - - - Migraine Specific QOL - Higher scores indicate better HRQL 07/20/2020 09/17/2020 07/17/2022 Role Function-Restrictive Transformed Score (range: 0-100) 100 0 80 Role Function-Preventive Transformed Score (range: 0-100) 100 0 80 Emotional Function Transformed Score (range: 0-100) 100 13.33 80 PHQ-9 01/27/2021 07/12/2021 07/17/2022 Score 0 7 6 MEDS: Current Outpatient Medications Medication Sig propranolol ER (INDERAL LA) 80 mg 24 hr capsule Take 1 capsule by mouth once daily. ZOLMitriptan (ZOMIG) 5 mg nasal spray 1 spray in 1 nostril at headache onset. May repeat once in 2 hours if needed. Give max sprays allowed per insurance. erenumab-aooe 140 mg/mL subcutaneous auto-injector (AIMOVIG) INJECT 140 MG SUBCUTANEOUSLY ONCE EVERY MONTH. rizatriptan (MAXALT) 10 mg tablet 1 tab at earliest sign of migraine. May repeat once in 2 hours ifneeded. Give max allowed per insurance. scopolamine (TRANSDERM-SCOP) 1.5 mg (1 mg over 3 days) Apply 1 Patch as directed every 72 hours. APPLY 1 DISC BEHIND THE EAR AT LEAST 4 HOURS PRIOR TO EXPOSURE AND EVERY 3 DAYS NEEDED. Ascorbic Acid (VITAMIN C) 1,000 mg tablet Take 1,000 mg by mouth once daily. ONDANSETRON HCL (ZOFRAN ORAL) Take 4 mg by mouth as needed. CYANOCOBALAMIN, VITAMIN B-12, (VITAMIN B-12 ORAL) Take by mouth. No current facility-administered medications for this visit. Prior Therapies Duration of Use Dose Reason for Discontinuation Other Therapies Nerve blocks Analgesic Butalbital/acetaminophen/caffeine (Fioricet) Hydrocodone/Acetaminophen (Vicodin, [place]) Anti-Convulsant Topiramate (Topamax, Trokendi XL, Qudexy) Anti-Depressant and Antipsychotic Amitriptyline (Elavil) Duloxetine (Cymbalta) Nortriptyline (Pamelor, Aventyl) Antiemetics Ondansetron Anti-Migraine Dihydroergotamine (DHE-45, Migranal) Rizatriptan (Maxalt) Sumatriptan (Imitrex, Sumavel) Zolmitriptan (Zomig) Blood Pressure Propranolol (Inderal) Timolol MABs Erenumab (Aimovig) Galcanezumab (Emgality) Botulinum Toxin Onabotulimum Toxin A (Botox) Other Medications Prednisone Over the Counter Medications Acetaminophen (Tylenol) Acetaminophen/Aspirin/Caffeine (Excedrin, Goody s) Ibuprofen (Advil, Motrin) REVIEW OF SYSTEMS: Review of system : unchanged from the previous visit (sleep patterns, mood, energy, appetite, stress, exercising). Physical Examination: BP 144/89 Pulse 62 Wt 77.6 kg (171 lb) BMI 26.78 kg/m GEN: Alert. NAD. Normal affect. Cooperative. NEUROLOGICAL: Alert and oriented. Attentive. Thought process and content unremarkable. Follows commands appropriately. Speech fluent. Stable primary gait. Cresencio Robles DO [facility] [place] Department [facility] [address] [place], [place] [id number] Level of service: Est level 2 (10-19 min). Time spent 18 min on the day of service, which included preparing to see the patient, [id number] patient care, completing clinical documentation, obtaining and/or reviewing separately obtained history, counseling and educating the patient/family/caregiver, and ordering medications, tests, or procedures. Medical Decision Making: Medical Decision Making Level: 1 - N/A cc: Anand Garcia [address] [place] [id number] documented in this encounterFairfield [facility] Center07-25-2022 Evaluation note* Encounter Date Diagnosis Assessment Notes Treatment Notes Treatment Clinical Notes May, Chronic kidney disea se (ICD-10 - N18.9) She did see Dr. Plummer for evaluation, voices that she will not return to see him for one year. Her BUN is 16. EGFR is 1.19. EGFR is 47. Will continue to monitor. May, Degenerative disc disease, cervical (ICD-10 - M50.30) She voices that her neck is killing her . She cannot take Motrin or Tylenol. She is using ice packs without relief. She is not sure what started this but it has been bothering her since January (2021). She thought it was a pulled muscle but it has only worsened. She voices that this has caused her headaches to worsen. She has had pain in her shoulders. On May 05, 2022, she had an episode where she became very light-headed and fell because of the pain. She had been hiking and was sitting on a rock. She walked back to her room and was in the shower she went to step out of the shower and became dizzy and tripped and fell. She felt she was well hydrated. She does have a hump on the back of her neck and is told that this is classically called a buffalo hump. I would like to rule out Cushings disease. I will order an x-ray of the thoracic and cervical spine. I will provide her with pain medication to have on hand in case she needs it. Guidance is given on how to take the medication. Do not drive or drink alcohol if she takes the medication. She understands the medication can be addictive and the side effects/risks/bene fits of medication. Side effects/risks/bene fits of medication were reviewed. May, Hypertriglyceridemia (ICD-10 - E78.1) Discussed cholesterol results with patient today. Total is 188. HDL is 40. LDL is 93.4. Triglycerides are 273 which are higher than we would like to see. Her VLDL level is 54.6 which is much higher than we would like to see. I am going to order a fasting insulin level, based on those results we may need to discuss her doing a keto/ketocarnivore diet. I would like her to watch her intake of carbs and sugars. Stay active. She can call for the results and at that time we may need to discuss this further. I did ask her to do some research on the keto diet. May, jail use of carine g (ICD-10 - Z79.899) May, Migraine (ICD-10 - G43.909) She does continue with above medications. May, Hyperglycemia (ICD-1 0 - R73.9) Discussed blood sugar results with patient today. Glucose is 108. HgA1C is 5.5. I did order a fasting insulin level and also an AM and PM Cortisol level. She will need to call the lab and find out when they need her to be at the lab for the AM Cortisol level. May, Encounter for screen ing mammogram for breast cancer (ICD-10 - Z12.31) She will be due to have a repeat mammogram done after 06-06-22. An order is provided. May, Weight gain (ICD-10 - R63.5) May, Tracy hump (ICD-10 - E65) May, Low hemoglobin (ICD- 10 - D64.9) I did advise her that her hemoglobin has gone down from 12.7 to 12.2 to 12.0. She did have a colonoscopy in 2018. We discussed that chronic kidney disease can cause this to go down and make someone slightly anemic. This is something that we can continue to monitor. [facility] Other 04-14-2022 Evaluation note* Encounter Date Diagnosis Assessment Notes Treatment Notes Treatment Clinical Notes Jan, Chronic kidney disea se, stage 3 unspecified (ICD-10 - N18.30) She has longstanding CKD likely due to the renovascular disease. Her baseline serum creatinine is 1.1-1.2 mg/dL. I discussed with the importance of good HTN control to surround the progression of CKD. Jan, Atrophic kidney (ICD -10 - N26.1) She has smaller right kidney likely due to the renal vascular disease. 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 She appears to be euvolemic. Continue current dose of propranolol Jan, Secondary hyperparathyroidism (ICD-10 - N25.81) MBD parameters including calcium, phosphorus and PTH are within the goal. She has a supratherapeutic vitamin D but denies any intake of the vitamin D. I have advised her to lower the vitamin D supplement [facility] Other 04-08-2022 Evaluation note* Encounter Date Diagnosis Assessment Notes Treatment Notes Treatment Clinical Notes Jan, Trochanteric bursitis, right hip (ICD-10 - M70.61) This appears to be pain secondary to greater trochanteric bursitis. Discussed treatment options as oral or topical NSAIDs, physical therapy with iontophoresis, or cortisone injection to the greater trochanteric bursa. Patient given order for formal physical therapy Patient was prepped and cortisone was injected into the greater trochanteric bursa under sterile conditions. Patient tolerated injection well with no adverse reactions. Jan, Primary osteoarthritis of right hip (ICD-10 - M16.11) Jan, Right hip pain (ICD-10 - M25.551) Jan, Other 1. We had a carrington g discussion regarding the etiology of their symptoms. I explained to the patient that greater trochanteric bursitis is a chronic condition and as a result may require several rounds of physical therapy and or injections. Furthermore, it requires a diligent home exercise regimen to prevent flareups. 2. We discussed oral anti-inflammatorie s and Tylenol. Recommended utilizing [id number] oral anti-inflammatorie s. Recommended adjusting their Tylenol dosing to 1000mg by mouth up to 3 times a day. 3. We discussed physical therapy. Patient preferred formal PT. 4. We discussed steroid injections as a treatment option. Patient preferred a hip bursa injection today. After consent was obtained, the right hip greater trochanteric bursa was injected with 3 cc of Kenalog and 7 cc of bupivacaine using sterile technique. Patient tolerated the injection well.. 5. Follow up in 3 months. 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 PREOPERATIVE DIAGNOSIS: 1. Hallux limitus, painful first MPJ right foot. 2. Painful exostosis fourth toe right foot. NAME OF OPERATION: 1. Amado cheilectomy first MPJ right foot. 2. Partial ostectomy fourth toe right foot. PROCEDURE: Right foot was prepped and draped in the usual sterile manner. General anesthesia was administered. Right extremity elevated approximately five minutes, at which time the pneumatic tourniquet was inflated to 300 mm/Hg to the level of the mid thigh. A 7 cm incision made on the dorsal aspect of the first MPJ, deepened through subcutaneous and capsular structures, which were reflected from the bony attachments. Using a chisel and blade, the dorsal, medial and lateral redundance were resected. At this point in time, using and oscillating saw, a small oblique partial ostectomy was made dorsally in the proximal phalanx. Remaining edges of bone were remodeled with rongeur and rasp. The first MPJ moved very nicely on the table at this point in time. Full range of motion. I did inspect her cartilage. While there were some small areas of cartilage denuded, there was not the usual dime-sized area being denuded in the center. So, it was not necessary to put any drill holes in the cartilage. Sterile Betadine lavage was then instituted. Simple sutures of 2-0 Vicryl were used to close the capsular structures. Simple sutures of 3-0 Vicryl were used to close subcutaneous tissue, and simple sutures of 4-0 nylon were used to close the skin. At this point in time, approximately 6 or 7 cc of half Marcaine/half Xylocaine were infiltrated in a first ray block. Adaptic and mild compression dressing was applied. Attention turned to the fourth toe of the right foot, where a small one stitch incision was made on the dorsal lateral aspect of the fourth toe, deepened through subcutaneous tissue and deep structures reflected from their bony attachments laterally. Using a small ralph, the lateral redundance of bone was resected until felt to be smooth by both digital/instrument palpation. Bone paste exuded from the incisional area. Sterile Betadine lavage was then instituted. One simple suture of 4-0 nylon was used to close the skin incision, along with triple antibiotic ointment and a Band-Aid. The tourniquet was released prior to the fourth toe procedure, and no excessive bleeding was noted at the first MPJ, and the patient tolerated surgery/anesthesia well. Left the OR in stable condition. : Electronically Authenticated and Edited by: Yannick Estrada DPM on 02/10/2022 03:19 PM EDT [facility] Signed and Approved by: DR YANNICK ESTRADA 02/10/2022 15:19:00[facility]03-23-2022 NotePROCEDURE: XR HIP RT 2 3V W PELVIS COMPARISON: None. HISTORY: Hip pain FINDINGS: BONES:No acute fracture or dislocation. Mild bilateral hip osteoarthropathy with joint space narrowing and marginal osteophyte formation along the acetabulum SOFT TISSUES:Negative. No visible soft tissue swelling. EFFUSION:None visible. OTHER: Metallic foreign body projects over the lumbar vertebral body possibly a navel piercing. IMPRESSION: Mild degenerative changes Electronically authenticated by: ANAND KELLY Date: 2022-01-21 07:06[facility]03-21-2022 Evaluation note* Encounter Date Diagnosis Assessment Notes Treatment Notes Treatment Clinical Notes Dec, Foot pain, right (ICD-10 - M79.671) She is having surgery per Dr. Estrada on her right foot. She voices that she has a spur and a bunion. She will have this done at the [facility] [place]. She voices that she can walk and climb two flights of stairs without having any shortness of breath or difficulty. Dec, Pre-op evaluation (ICD-10 - Z01.818) A presurgical clearance was done in the office today. After evaluation I did provide her with a letter stating she is medically cleared for surgery. Dec, Hip pain (ICD-10 - M25.559) right hip She does not think that her right hip pain is coming from her back. She says she has a hard time getting her leg to move. Her pain is in the right groin, it freezes up on her at work and she has trouble moving it. I am going to provide her with an order to have an x-ray done of the right hip. If the x-ray is negative then she can contact Dr. Hidalgo about the possibility of the hip issue coming from her back. Dec, Other intervertebral disc degeneration, lumbar region (ICD-10 - M51.36) Dr. Hidalgo did injections in her back, she voices that they told her that the right hip pain was likely coming from her back. [employer] Other 12-06-2021 NoteHOSPITAL REGULATIONS: All Positive and Important Negative Findings Shall Be Recorded Date of Consultation: 09/23/2021 Attending Physician: Anand Garcia D.O. Consulting Physician: Cole Hidalgo M.D. FOLLOWUP VISIT CHIEF COMPLAINT: Low back pain. HISTORY OF PRESENT ILLNESS: A 56-year-old female with a history of lumbar disc displacement, lumbarradiculitis, spondylosis and chronic pain following up from an L3-L4 epidural steroid injection on 09/02/2021. The patient reports 75-80% relief of her pain. She is very pleased. No apparent complications. She has some posterior buttock pain when she steps backwards at times. She wonders what this is. It is no too bothersome to the patient as it is intermittent. The patient is currently satisfiedwith the degree of relief she is experiencing. She has questions about her condition and prognosis. Past medical history, family history, surgical history, social history, medication list, allergies and a complete review of systems were obtained and reviewed. Pertinent findings are noted in the HISTORY OF PRESENT ILLNESS. PHYSICAL EXAMINATION: Constitutional: No acute distress, well nourished, well developed. Musculoskeletal: Injection sites are healed. Nontender to palpation of the sacroiliac joints and greater trochanters. Full range of motion bilateral hips without pain. Neurologic: 5/5 strength throughout bilateral lower extremities. Normal gait. ASSESSMENT/PLAN: A 56-year-old female with significantly improved low back and lower extremity painfollowing epidural steroid injection. She is doing very well. I encouraged the patient to continue her home exercise program. Her bilateral hip pain seems muscular in nature. I suggested that she consider revisiting physical therapy to address it. She will think it over as it is not too bothersome for her at this point she will hold off. I asked the patient to follow up as needed and to call the clinic with any questions or concerns. The patient agrees with plan of care. Cole Hidalgo M.D. Dictated: 09/23/2021 [id number] Transcribed: 09/23/2021 *Anand Garcia D.O.[facility]Comment on above:Result Comment: Electronically Signed By: Gwen CANNON, Cole Sandoval.br\Date and Time Signed: 10/06/21 13:52 [id number] Note [id number]:127[facility] 08-25-2021 NoteHOSPITAL REGULATIONS: All Positive and Important Negative Findings Shall Be Recorded Date of Consultation: 08/18/2021 Attending Physician:Anand Garcia D.O. Consulting Physician: Cole Hidalgo M.D. NEW PATIENT EVALUATION CHIEF COMPLAINT: Low back pain that radiates to bilateral hips with standing and walking and bending and twisting. HISTORY OF PRESENT ILLNESS: This is a 56-year-old female with multi-year history of low back pain worsening over time. No inciting injury or trauma. She does have a history of cervical spine surgery with Dr. Pires which was successful for the patient. The patient has noticed over the past several months that her back pain has worsened. It ranges from a 4-9/10 on the visual analog scale. When she sits the pain is relieved to a significant degree. Denies loss of bowel or bladder function, fevers, chills, stumbling or falling. Treatments have included a full course of physical therapy within the past six months. The patient is allergic to nonsteroidal anti-inflammatory drugs. The patient has seen Dr. Keating who did not think the patient was a surgical candidate and was referred here. Apparentlyat a visit with Dr. Keating, the patient was very tender over the greater trochanters of the hips specifically. The patient notes that while she does have some tenderness along the lateral aspect of her hips her major issues is her low back pain and that the hip pain is really not the most problematic for her. Past medical history, family history, surgical history, social history, medication list, allergies and a complete review of systems were obtained and reviewed. Pertinent findings are noted in the HISTORY OF PRESENT ILLNESS. PHYSICAL EXAMINATION: Constitutional: No acute distress. Well nourished, well developed. Eyes: No exudate or deformity. Extraocular muscles are intact. Ears, nose, mouth and throat: Ears and nose are without deformity. The patient is wearing a mask. Neck: No noticeable masses, tracheal deviation or asymmetry. No thyromegaly on inspection. Respiratory: No gasping or shortness of breath. No accessory muscle use. Cardiovascular: Pulses in extremities are palpable. No noticeable lower extremity edema or varicosities. Gastrointestinal: No distention, no pain with palpation. Lymphatics: No supraclavicular or cervical lymphadenopathy. Skin: Inspection of skin reveals no rashes, lesions or ulcers. Normal skin turgor. Psychiatric: Oriented to time, place and person. Normal mood and affect. Musculoskeletal: The patient arises easily from a seated position. There is mild tenderness in the lumbar paraspinal region. No gross deformity or asymmetry. There is no pain with lumbar facet loading bilaterally. There is tenderness to palpation over the left greater than right greater trochanteric bursas of the hips however when palpated, the patient states that this is not the pain that she typically experiences. ZOË test is negative bilaterally. Sacroiliac joints are nontender to palpation. Neurologic: 5/5 strength throughout bilateral lower extremities. Deep tendon reflexes are absent atthe bilateral patella and ankle clonus is negative bilaterally. Able to heel and toe walk. Normal gait. IMAGING STUDIES: MRI lumbar spine from June of 2021 demonstrates normal alignment, no compressionfractures. There is a cyst on the right kidney. L2-L3 narrowing of the disc space, annular disc bulge greater towards the neural foramina and asymmetrically extending towards the left, mild facet andligamentum hypertrophy, mild to moderate thecal sac effacement, mild right and mild to moderate left inferior foraminal encroachment. L3-L4 there is narrowing of the disc space, annular disc bulge greater towards the neural foramina and asymmetric on the left, mild facet and ligamentous hypertrophy, mild to moderate thecal sac effacement is present, mild to moderate left and mild right foraminal impingement is seen. L4-L5 just slight loss of disc height, annular disc bulging is visualized greater towards the neural foramina and slightly asymmetric to the right, facet and ligamentous hypertrophy is visualized, mild to moderate thecal sac effacement, moderate foraminal impingement bilaterally. At L5-S1, slight loss of disc height, annular disc bulge, some facet disease, mild thecal sac effacement, mild to moderate foraminal narrowing bilaterally. ASSESSMENT/PLAN: This is a 56-year-old female with severe worsening low back pain consistent with L3-L4 disc bulge associated with lumbar radiculitis. The patient's pain has not responded to physicaltherapy as well as home exercise program. Unable to take nonsteroidal anti-inflammatory drugs due to allergy. I recommended an L3-L4 epidural steroid injection to address the patient's symptoms. She does have some bilateral greater trochanteric hip bursitis, however, it does not seem to be the major source to the patient's pain at this point. We can consider hip bursa injections in the future if those symptoms become more pro (more content not included)...[facility] HospitalComment on above:Result Comment: Electronically Signed By: Gwen CANNON, Cole Silva\Date and Time Signed: 08/25/21 13:52 EDTEvaluation noteNo InformationNorth [employer] Other Evaluation noteNo assessment information available [facility] Work Phone: Evaluation note* Diagnosis Migraine with aura and without status migrainosus, not intractable- Primary Migraine with aura, without mention of intractable migraine without mention of status migrainosus Cervicalgia Migraine without aura and without status migrainosus, not intractable Migraine without aura, without mention of intractable migraine without mention of status migrainosus Bilateral occipital neuralgia Other syndromes affecting cervical region [facility] Diagnosis Spinal stenosis of cervical region- Primary Spinal stenosis in cervical region Cervicalgia History of fusion of cervical spine Arthrodesis status Cervical spondylosis Cervical spondylosis without myelopathy documented [facility]* Diagnosis Cervicalgia- Primary History of fusion of cervical spine Arthrodesis status Cervical spondylosis Cervical spondylosis without myelopathy documented in this encounter [facility] general Narrative - Reported* Type Description Date Medical History Pneumonia - 1977 Medical History Uterine Fibroids - 1997 Medical History Last Pap 2009; Dr. Phoenix Medical History Last Mammogram 2009; [facility] Medical History History of EKG; due to Chest Pain at Dr. Prater Medical History Fractured right wrist as a child Medical History lt elbow torn ligame nt - had surgery - [facility] [place] - workers comp Medical History migraine headaches Medical History Pt is a fraternal twin, has a si ster Surgical History carpal tunnel both hands Surgical History Tonsillectomy 1971 Surgical History hysterectomy still has ovaries Surgical History Vaginal Hyst - Dr. Valencia (Due t o uterine fibroid) 09/06/1998 Surgical History tonsillectomy Surgical History Cervical fusion - Dr. Edgar Pranay 2001 Surgical History lasik Surgical History CTS Release bilaterally- Dr. Daivs lt1995 Surgical History neck surgery Surgical History elbow torn ligament - [facility] - w/c 03/07/2015 Surgical History neck fushion 10/2015 Surgical History botox for migraines Dr Robles 20 17 Surgical History botox - for migraines - Dr Niko loomis 01/2018 Surgical History Colonoscopy - Dr. Derek riddle- Normal - repeat in 10 years 202804/12/2019 Hospitalization History See Above Surgical Hx [employer] Other History general Narrative - Reported* Type Description Date Medical History Pneumonia - 1977 Medical History Uterine Fibroids - 1997 Medical History Last Pap 2009; Dr. Phoenix Medical History Last Mammogram 2009; [facility] Medical History History of EKG; due to Chest Pain at Dr. Prater Medical History Fractured right wrist as a child Medical History lt elbow torn ligame nt - had surgery - [employer] - workers comp Medical History migraine headaches Medical History Pt is a fraternal twin, has a si ster Medical History CKD Surgical History carpal tunnel both hands Surgical History Tonsillectomy 1971 Surgical History hysterectomy still has ovaries Surgical History Vaginal Hyst - Dr. Valencia (Due t o uterine fibroid) 09/06/1998 Surgical History tonsillectomy Surgical History Cervical fusion - Dr. Herve Pires 2001 Surgical History lasik Surgical History CTS Release bilaterally- Dr. Susan santos1995 Surgical History neck surgery Surgical History elbow torn ligament - [facility] - w/c 03/07/2015 Surgical History neck fushion 10/2015 Surgical History botox for migraines Dr Robles 20 17 Surgical History botox - for migraines - Dr Niko loomis 01/2018 Surgical History Colonoscopy - Dr. Derek riddle- Normal - repeat in 10 years 202804/12/2019 Surgical History right foot surgery 01/28/2022 Hospitalization History See Above Surgical Hx [employer] Other Hiscktq general Narrative - Reported* Type Description Date Medical History Pneumonia - 1977 Medical History Uterine Fibroids - 1997 Medical History Last Pap 2009; Dr. Phoenix Medical History Last Mammogram 2009; [facility] Medical History History of EKG; due to Chest Pain at Dr. Prater Medical History Fractured right wrist as a child Medical History lt elbow torn ligame nt - had surgery - [employer] - workers comp Medical History migraine headaches Medical History Pt is a fraternal twin, has a si ster Medical History CKD Surgical History carpal tunnel both hands Surgical History Tonsillectomy 1971 Surgical History hysterectomy still has ovaries Surgical History Vaginal Hyst - Dr. Valencia (Due t o uterine fibroid) 09/06/1998 Surgical History tonsillectomy Surgical History Cervical fusion - Dr. Herve Pires 2001 Surgical History lasik Surgical History CTS Release bilaterally- Dr. Susan santos1995 Surgical History neck surgery Surgical History elbow torn ligament - [facility] - w/c 03/07/2015 Surgical History neck fushion 10/2015 Surgical History botox for migraines Dr Robles 20 17 Surgical History botox - for migraines - Dr Pope n 01/2018 Surgical History Colonoscopy - Dr. Derek riddle- Normal - repeat in 10 years 202804/12/2019 Surgical History right foot surgery Hospitalization History See Above Surgical Hx [employer] Other Summary Purpose Family History No Family History Records FoundNo Family History Records FoundNo Family History Records FoundNo Family History Records FoundNo Family History Records Found Advance Directives No Advanced Directives Records Found Advance Directive Response Recorded Date/ Time Advance Directives No August 03, 2017 4:04pm Chief Complaint and Reason for Visit Chief Complaint Screening Reason for Referral Specialty Diagnoses / Procedures Referred By Corey mauro Referred To Contact MR IMAGING Diagnoses Cervicalgia History of fusion of cervical spine Cervical spondylosis Procedures MRI CERVICAL SPINE WO IVCON MRI SPINAL CANAL CERVICAL W/O CONTRAST MATRAnaid Urias, BUILD ENGINEER.STRATEGY ASSOCIATE [address] [id number] Mr Imaging Referral ID Status Reason Start Date Expiration Date Visits Requested Visits Authorized [id number] Pending Review Auto-Generat ed Referral 10/28/2023 1 1 Specialty Diagnoses / Procedures Referred By Corey t Referred To Contact [facility] [place] Diagnoses Cervicalgia Procedures CONSULT TO [facility]PATIENT [facility] MDM 60-74 MINUTES Cresencio Robles, DO [address] [place] [address] Referral ID Status Reason Start Date Expiration Date Visits Requested Visits Authorized [id number] Authorized PCP Requested Referral 07/24/2022 07/24/2023 1 1 Additional Source Comments INFORMATION SOURCE (unrecogn ized section and content) DATE CREATED AUTHOR 12/26/2021 Ashish Foreman [facility] DATE CREATED AUTHOR AUTHOR'S ORGANIZ ATION 11/16/2022 [facility] DATE CREATED AUTHOR AUTHOR'S ORGANIZ ATION 01/05/2023 [facility] DATE CREATED AUTHOR AUTHOR'S ORGANIZ ATION 08/09/2023 [facility] DATE CREATED AUTHOR AUTHOR'S ORGANIZ ATION 11/28/2023 [facility] REASON FOR VISIT (unrecogniz ed section and content) Reason Comments Follow Up Migraines Reason Comments Neck Pain Reason Comments Insurance Authorization Aimovig 140MG/ML auto-injectors Reason Comments appointment instructions MRI- 11/16/2022 @ 1040amAppointment reminder call - LEFT MESSAGE - with directions to office and the # to call if they cannot keep this [phone] Reason Comments Follow Up Neck and shoulder pa in Reason Onset Date Comments Refill Request 11/23/2022 Reason Comments Insurance Authorization [employer] Care Teams (unrecognized sec tion and content) Team Status: Active Member Role Status Dates Anand Garcia DO Primary Care Provider Active Team Status: Inactive Member Role Status Dates Anand Garcia DO Primary Care Provider, Attending Pro vider Active Tumbling And Rolling Supervisor Relationship Specialty Start Date End Date Anand Garcia, DO [address] [place] [address] PCP - General Family Medicine 07/02/15 Tumbling And Rolling Supervisor Relationship Specialty Start Date End Date Anand Garcia, DO [address] [place] [address] PCP - General Family Medicine 07/02/15 Tumbling And Rolling Supervisor Relationship Specialty Start Date End Date Anand Garcia, DO [address] [place] [address] PCP - General Family Medicine 07/02/15 Tumbling And Rolling Supervisor Relationship Specialty Start Date End Date Anand Garcia, DO [address] [place] [address] PCP - General Family Medicine 07/02/15 Tumbling And Rolling Supervisor Relationship Specialty Start Date End Date Anand Garcia DO [address] [place] [address] PCP - General Family Medicine 07/02/15 Tumbling And Rolling Supervisor Relationship Specialty Start Date End Date Anand Garcia, DO [address] [place] [address] PCP - General Family Medicine 07/02/15 Tumbling And Rolling Supervisor Relationship Specialty Start Date End Date Anand Garcia, DO [address] [place] [address] PCP - General Family Medicine 07/02/15 Tumbling And Rolling Supervisor Relationship Specialty Start Date End Date Anand Garcia, DO [address] [place] [address] PCP - General Family Medicine 07/02/15 Goals (unrecognized section and content) Goals may be documented in a n alternate section Source Comments (unrecognize d section and content) In the event this informatio n is protected by the Federal Confidentiality of Alcohol and Drug Abuse Patient Records regulations: The Federal rules restrict any use of the information to criminally investigate or prosecute any alcohol or drug abuse patient.[facility] CenterIn the event this information is protected by the Federal Confidentiality of Alcohol and Drug Abuse Patient Records regulations: The Federal rules restrict any use of the information to criminally investigate or prosecute any alcohol or drug abuse patient.[facility] CenterIn the event this information is protected by the Federal Confidentiality of Alcohol and Drug Abuse Patient Records regulations: The Federal rules restrict any use of the information to criminally investigate or prosecute any alcohol or drug abuse patient.[facility] CenterIn the event this information is protected by the Federal Confidentiality of Alcohol and Drug Abuse Patient Records regulations: The Federal rules restrict any use of the information to criminally investigate or prosecute any alcohol or drug abuse patient.[facility] CenterIn the event this information is protected by the Federal Confidentiality of Alcohol and Drug Abuse Patient Records regulations: The Federal rules restrict any use of the information to criminally investigate or prosecute any alcohol or drug abuse patient.[facility] CenterIn the event this information is protected by the Federal Confidentiality of Alcohol and Drug Abuse Patient Records regulations: The Federal rules restrict any use of the information to criminally investigate or prosecute any alcohol or drug abuse patient.[facility] CenterIn the event this information is protected by the Federal Confidentiality of Alcohol and Drug Abuse Patient Records regulations: The Federal rules restrict any use of the information to criminally investigate or prosecute any alcohol or drug abuse patient.[facility] CenterIn the event this information is protected by the Federal Confidentiality of Alcohol and Drug Abuse Patient Records regulations: The Federal rules restrict any use of the information to criminally investigate or prosecute any alcohol or drug abuse patient.[facility] CenterIn the event this information is protected by the Federal Confidentiality of Alcohol and Drug Abuse Patient Records regulations: The Federal rules restrict any use of the information to criminally investigate or prosecute any alcohol or drug abuse patient.[facility] FOR RECORDS PERTAINING TO PATIENTS WHO ARE OR HAVE BEEN ENROLLED IN A CHEMICAL DEPENDENCY/SUBSTANCEABUSE PROGRAM, SOME INFORMATION MAY BE OMITTED. This clinical summary was aggregated from multiple sources. Caution should be exercised in using it in the provision of clinical care. This summary normalizes information from multiple sources, and as a consequence, information in this document may materially change the coding, format and clinical context of patient data. In addition, data may be omitted in some cases. CLINICAL DECISIONS SHOULD BE BASED ON THE PRIMARY CLINICAL RECORDS. [facility] [employer] [facility] provides no warranty or guarantee of the accuracy or completeness of information in this document.
[2023-12-04 08:21] LABS: Hematocrit 40.2 % (36.0-48.0); Hemoglobin 13.1 g/dL (12.0-16.0); Mean Corpuscular HGB Conc 32.6 g/dL (29.9-35.2); Mean Corpuscular Hemoglobin 29.7 pg (26.7-34.0); Mean Corpuscular Volume 91.2 fL (81.0-99.0); Mean Platelet Volume 10.9 fL (9.5-13.5); Platelet Count 290 10^3/uL (150-450); Red Blood Count 4.41 10^6/uL (4.20-5.40); Red Cell Distribution Width 12.7 % (11.0-15.0); White Blood Count 8.1 10^3/uL (4.0-11.0)
[2023-12-04 09:03] LABS: Anion Gap 11.2; BUN Creatinine Ratio 16.8; Calcium 9.2 mg/dL (8.5-10.1); Carbon Dioxide 29.8 mmol/L (21.0-32.0); Chloride 106 mmol/L (98-107); Estimated GFR (African America >60 (>=60); Estimated GFR (Non-African Ame 50 (>=60); Glucose 111 mg/dL (74-106); Magnesium 1.9 mg/dL (1.8-2.4); Phosphorus 4.3 mg/dL (2.6-4.7); Sodium 143 mmol/L (136-145); Uric Acid 3.7 mg/dL (2.6-6.0)
[2023-12-04 09:38] LABS: Bilirubin Urine NEGATIVE (NEGATIVE); Blood Urine NEGATIVE (NEGATIVE); Clarity Urine CLEAR (CLEAR); Color Urine YELLOW (YELLOW); Glucose Urine UA NEGATIVE (NEGATIVE); Ketones Urine NEGATIVE (NEGATIVE); Leukocyte Esterase Urine TRACE (NEGATIVE); Nitrite Urine NEGATIVE (NEGATIVE); Protein Urine NEGATIVE (NEG/TRACE); Specific Gravity Urine 1.025 (1.005-1.025); Urobilinogen Urine 0.2 EU/dL (0.2-1.0)
[2023-12-04 09:47] LABS: Protein Creatinine Ratio Urine 0.06; Total Protein Urine Random 13.2 mg/dL (<=11.9)
[2023-12-04 10:13] LABS: Bacteria Urine TRACE #/HPF (NONE SEEN); RBC Urine NONE SEEN #/HPF (0-2); WBC Urine 0-2 #/HPF (NONE SEEN)
[2023-12-04 10:14] LABS: Cast Seen? NONE SEEN #/LPF (NONE SEEN); Crystals Seen? None Seen #/HPF (None Seen); Mucus Urine SMALL (NONE SEEN); Squamous Epithelial Cell Urine RARE #/LPF (NONE/RARE)
[2023-12-05 13:10] LABS: PTH, Intact 27 pg/mL (15-65)
== END 2023-12-04 07:57 | disposition home or self-care (01) ==
LOC: LAB 07:58
PROVIDERS: PCP Family Medicine; Visit Provider Internal Medicine
DX: I12.9 Hypertensive chronic kidney disease with stage 1 through stage 4 chronic kidney disease, or unspecified chronic kidney disease (principal); N18.30 Chronic kidney disease, stage 3 unspecified; N25.81 Secondary hyperparathyroidism of renal origin
CPT/HCPCS: 36415; 80069; 81001; 82306; 82570; 83735; 83970; 84156; 84550; 85027

== ENCOUNTER 2024-06-03 08:30 | Outpatient (OUT) | payer BC, SELFPAY ==
--- OUTSIDE RECORDS SUMMARY | 2024-06-03 08:35 | XMS_ITS | CCD ---
Author Organization [facility] Care Team Providers Care Polysomnographic Technologist Name Role Phone Anand Garcia Unavailable Dario Green II Unavailable Collins Plummerul Unavailable DO Anand Garcia Primary Care Provider DO Anand Garcia Attending Provider Anand Garcia DO Primary Care Provider Anand Garcia DO Primary Care Provider [phone] DR ANAND GARCIA Consulting Unavailable GIRVIN, DR MICHEL Primary Care Unavailable GIRVIN, DR MICHEL Admitting Unavailable GIRVIN, DR MICHEL Attending Unavailable ZIEBER, DR FELISA Drake Consulting Unavailable GIRVIN, DR MICHEL Primary Care Unavailable PENSIERO, DR YANNICK Bravo Attending Unava ilable PENSIERO, DR YANNICK Bravo Consulting Unava ilable PENSIERO, DR YANNICK Bravo Admitting Unava ilable PENSIERO, DR YANNICK Bravo Admitting Unava ilable PENSIERO, DR YANNICK Bravo Attending Unava ilable GIRVIN, DR MICHEL Primary Care Unavailable MCKAYVIKA Consulting Unavailable PENSIERO, DR YANNICK Bravo Attending Unava ilable PENSIERO, DR YANNICK Bravo Consulting Unava ilable PENSIERO, DR YANNICK Bravo Admitting Unava ilable GIRYARED, DR MICHEL Primary Care Unavailable AGUBOSIROMULO Shultz Consulting Unavailable MARIA DEL CARMENALDAIR Loom[place] Consulting Unavailable GIRVIN, DR MICHEL Consulting Unavailable GIRVIN, DR MICHEL Primary Care Unavailable GIRVIN, DR MICHEL Admitting Unavailable GIRYARED, DR MICHEL Attending Unavailable GIRYARED, DR MICHEL Primary Care Unavailable YEMI, MARIANNE Admitting Unavailable YEMI, MARIANNE Attending Unavailable YEMI, MARIANNE Consulting Unavailable GIRVIN, DR MICHEL Primary Care Unavailable GIRVIN, DR MICHEL Consulting Unavailable GIRYARED, DR MICHEL Admitting Unavailable GIRYARED, DR MICHEL Attending Unavailable [place], DR ANAND Ohara Consulting Unavailable GIRYARED, DR MICHEL Primary Care Unavailable YEMIMARIANNE Admitting Unavailable YEMI, MARIANNE Attending Unavailable YEMI, MARIANNE Consulting Unavailable GIRYARED, DR MICHEL Primary Care Unavailable GIRYARED, DR MICHEL Admitting Unavailable GIRYARED, DR MICHEL Attending Unavailable GIRYARED, DR MICHEL Consulting Unavailable GIRVIN, DR MICHEL Consulting Unavailable GIRVIN, DR MICHEL Primary Care Unavailable GIRVIN, DR MICHEL Admitting Unavailable GIRVIN, DR MICHEL Attending Unavailable Kendell, DO Michel Primary Care Provider DO Anand Garcia Attending Provider Anand Garcia Attending Unavailable Kendell, Anand Primary Care Unavailable Kendell, Anand Admitting Unavailable Anand Garcia DO Primary Care Provider [phone] Anand Garcia DO Primary Care Provider CRESENCIO ROBLES Referring Unavailable ANAND GARCIA Primary Care Unavailable SIMONA CARLSON Attending Unavailable ANAND GARCIA Primary Care Unavailable CRESENCIO ROBLES Unavailable ANAND GARCIA Primary Care Unavailable ANAND GARCIA Primary Care Unavailable CRESENCIO ROBLES Attending Unavailable Allergies Allergy Classification Reported Allergen(s) Allergy Type Date of Onset Reaction(s) Facility (15 sources) NSAIDs Propensity to adverse reactions kidney Dz [facility] [employer] Other (16 sources) Sulfamethoxazole / Trimethoprim; Translations: [Bactrim] Drug Allergy 04-10-20 19 kidney Dz [facility] (16 sources) topiramate; Translations: [TOPIRAMATE] Drug Allergy 05-09-20 18 Mental Status Change [facility] (1 source) NSAIDs Drug allergy (disorder) 04-10-20 19 [facility] Medications Current Medications Medication Drug Class(es) [...] for 7 days Jul, Active Start: 05-21-2020 [place] 5-325 MG 1 tablet Orally q6-8 hrs as needed DX: M50.30 for 7 days May, Active ascorbic acid 1000 mg oral tablet (19 sources) Vitamin C take 1 tablet by lillie th once daily Ascorbic Acid 1,000 mg tablet Take 1,000 mg by mouth once daily. 0 Active Vitamin C Active Comment on above: Take 1,000 mg by lillie th once daily. atogepant (QULIPTA) 60 mg tablet (5 sources) Start: 4 End: 5 take 1 tablet by mouth once daily atogepant (QULIPTA) 60 mg tablet Take 1 tablet (60 mg) by mouth once daily. 30 tablet 11/26/2023 11/25/2024 Active Comment on above: Take 1 tablet (60 mg ) by mouth once daily. baclofen 10 mg oral tablet (2 sources) gamma-Aminobutyr ic Acid-ergic Agonist Start: 2 End: 2 take 1 tablet by mouth twice daily as needed baclofen (LIORESAL) 10 mg tablet Indications: Cervicalgia , History of fusion of cervical spine , Cervical spondylosis Take 1 tablet by mouth twice daily as needed. 40 tablet 0 09/28/2022 10/28/2022 Active Comment on above: Take 1 tablet by lillie th twice daily as needed. CYANOCOBALAMIN, VITAMIN B-12, (VITAMIN B-12 ORAL) (14 sources) CYANOCOBALAMIN, VITAMIN B-12, (VITAMIN B-12 ORAL) Take by mouth. 0 Active Comment on above: Take by mouth. dihydroergotamine mesylate 0.725 MG/ACTUAT Metered Dose Nasal [place] [Trudhesa] (2 sources) Trudhesa 0.725 MG/ACT 1 [...] a meal Orally Once a day Active Magnesium Hydroxide (7 sources) take 400 mg by mouth once daily magnesium hydroxide (MAGNESIA ORAL) Take 400 mg by mouth once daily. 0 Active Comment on above: Take 400 mg by mouth once daily. Multivitamin preparation (15 sources) take 1 tablet [...] 4 mg by mouth a s needed. 24 hr propranolol hydrochloride 80 mg extended release oral capsule (20 sources) beta-Adrenergic Nicky Start: take 1 capsule by mouth once daily propranolol ER (INDERAL LA) 80 mg 24 hr capsule Take 1 capsule by mouth once daily. 90 capsule 3 11/26/2023 Active Start: 12-02-2021 End: 11-23-2022 take 1 capsule by mouth once daily propranolol ER (INDERAL LA) 80 mg 24 hr capsule Take 1 capsule by mouth once daily. 90 capsule 3 11/24/2022 Active take 1 tablet by lillie th every twenty-four hours Propranolol HCl 80 MG 1 Tablet Orally Once a day Active Comment on above: Take 1 capsule by mo uth once daily. rosuvastatin calcium 5 mg oral tablet (10 sources) HMG-CoA Reductase Inhibitor Start: 06-09-20 take 1 tablet by mouth once rosuvastatin (CRESTOR) 5 mg tablet Take 1 tablet by mouth every afternoon. 0 07/06/2023 Active Comment on above: Take 1 tablet by lillie th every afternoon. 72 hr scopolamine 0.0139 mg/hr transdermal system (14 sources) Anticholinergic Start: 05-31-20 17 scopolamine (TRANSDERM-SCOP) 1.5 mg (1 mg over [...] TO EXPOSURE AND EVERY 3 DAYS NEEDED. tiZANidine 4 mg oral capsule (2 sources) Central alpha-2 Adrenergic Agonist Start: 11-16-19 End: 12-16-19 23 take 1 capsule by mouth every twelve hours as needed tiZANidine HCl (ZANAFLEX) 4 mg capsule Take 1 capsule by mouth twice daily as needed. 40 capsule 0 11/16/2022 12/16/2022 Active Comment on above: Take 1 capsule by mo ut twice daily as needed. ubrogepant 100 mg oral tablet (5 sources) Start: 11-26-19 24 ubrogepant (UBRELVY) 100 mg tablet Take 1 tab at migraine onset. May repeat once in 2 hours as needed. 16 tablet 11 11/26/2023 Active Comment on above: Take 1 tab at migrai ne onset. May repeat once in 2 hours as needed. Vitamin C 1000 MG (6 [...] Drug Class(es) Dates Sig (Normalized) Sig (Original) dihydroergotamine mesylate 0.5 mg/actuat metered dose nasal spray (9 sources) Ergotamine Derivative Dihydroergotamine Mesylate 4 MG/ML as directed Nasally ONLY NEEDED PRN Not-Taking dihydroergotamine (TRUDHESA) 0.725 mg/pump act. (4 mg/mL) nasal spray (2 sources) Start: 07-21-2023 dihydroergotamine (TRUDHESA) 0.725 mg/pump act. (4 mg/mL) [...] erenumab-aooe 140 mg/ml auto-injector (20 sources) Start: 07-21-2023 inject 1 mL by subcutaneous injection every [...] spray nasally at onset of headache Active rizatriptan 10 mg oral tablet (20 sources) Serotonin-1b and Serotonin-1d Receptor Agonist Start: 09-23-2020 rizatriptan (MAXALT) 10 mg tablet 1 tab at earliest sign of migraine. May repeat once in 2 hours if needed. Give max allowed per insurance. 27 tablet 3 09/23/2020 Active Comment on above: 1 tab at earliest si gn of migraine. May repeat once in 2 hours if needed. Give max allowed per insurance. SUMAtriptan 20 mg/actuat nasal spray (7 sources) Serotonin-1b and Serotonin-1d Receptor Agonist Start: 07-24-2022 SUMAtriptan (IMITREX) 20 mg/actuation nasal spray 1 spray in 1 nostril at migraine onset. May repeat once in 2 hours if needed. 8 Each 11 07/24/2022 Active Comment on above: 1 spray in 1 nostril at migraine onset. May repeat once in 2 hours if needed. triamcinolone acetonide 40 mg/ml injectable suspension (14 sources) Corticosteroid Start: 02-06-2022 Kenalog-40 Jan, 40 mg Start: 02-06-2022 Kenalog -40 mg Jan, 40 mg zinc gluconate 50 mg oral tablet (5 sources) take 1 tablet by mouth every twenty-four hours Zinc 50 MG 1 tablet Orally Once a day Not-Taking ZOLMitriptan 5 mg/actuat nasal spray (15 sources) Serotonin-1b and Serotonin-1d Receptor Agonist Start: 10-01-20 ZOLMitriptan (ZOMIG) 5 mg nasal spray 1 [...] [HALLUX RIGIDUS RIGHT FOOT] Onset: 2 Chronic Aortic; peripheral; and visceral artery aneurysms (2 sources) Dissection of vertebral artery; 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] Onset: 4 01-07-2024 Chronic Chronic kidney disease (20 sources) Chronic [...] 2 Chronic Other aftercare (9 sources) 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) 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; Translations: [OTH CTC OPERATOR CURRENT DRUG THERAPY] Onset: 2 Resolved: 2 [...] nutritional; endocrine; and metabolic disorders (11 sources) Wilbarger hump; 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] Chronic Other nutritional; [...] 05-25-2022 Resolved: 05-25-2022 Episodic Headache; including migraine (20 sources) Chronic daily headache; Translations: [Chronic daily [...] Resolved: 02-06-2022 Episodic Other connective tissue disease (14 sources) Chronic musculoskeletal pain; Translations: [Myalgia, other site] Onset: 07-03-2016 07-03-2016 Episodic Other connective tissue disease (1 source) Arthrodesis status; Translations: [ARTHRODESIS STATUS] Onset: 02-05-2022 Episodic Other non-traumatic joint disorders [...] Test Name Value Interpretation Reference Range Facility [facility] 03-29-2024 [facility] Office Visit (SDFB) MYRTLE JONES ([id number]) 1965 F Date Time Provider Department 03/29/24 4:00 PM SIMONA CARLSON [facility] During your visit today, we recorded the following information about you: Pulse Blood pressure Weight Height 67/minute 142/68 73.6 kg 1.702 m Simona Carlson APRN.CNP 03/29/2024 4:23 PM Signed [facility] - Follow up Visit Accompanied by: Self Primary Problem List: ACTIVE PROBLEM LIST Chronic Daily Headache Chronic [...] Without Aura and With Status Migrainosus Cervicalgia Chronic Migraine Without Aura, Intractable, Without Status Migrainosus Status Migrainosus Chief Complaint: Follow-up Impression and Plan from last visit: KIRSTIN 11/26/[address] Robles. Myrtle Jones is a 58-year-old female with history significant for chronic migraine, chronic neck pain (s/p fusion x2), occipital neuralgia and HTN. At her last visit she was to switch Aimovig to Qulipta and trial Ubrelvy. Interval Headache History: She has seen reduction in migraine frequency and auras since starting Qulipta. Ubrelvy works most of the time. Tolerates the medications well. Headache 1 Location: right and frontal Quality/Description: throbbing Worse with activity: yes Number of migraine headache days/month: 2 Number of NON-migraine headache days/month: 8 Total Number of headache days/month: 10 Number of headache free days/month: 20 Duration of headaches with treatment: 1 hours Current preventive treatment: Qulipta, Propranolol Current abortive treatment: Ubrelvy Relieving factors: Medication, laying down, rest/sleep Aura: scotoma (Squiggly lines. Lasts about 30 minutes.) Days missed from work or school in the last month: 1 days Headache status since the last visit: better Prior Therapies Duration of Use Dose Reason for Discontinuation Other Therapies Nerve blocks Analgesic Butalbital/acetaminoph en/caffeine (Fioricet) Hydrocodone/Acetaminop hen (Vicodin, [place]) Anti-Convulsant Topiramate (Topamax, Trokendi XL, Qudexy) Anti-Depressant and Antipsychotic Amitriptyline (Elavil) Duloxetine (Cymbalta) Nortriptyline (Pamelor, Aventyl) Antiemetics Ondansetron Anti-Migraine Dihydroergotamine (DHE-45, Migranal) Rizatriptan (Maxalt) Sumatriptan (Imitrex, Sumavel) Zolmitriptan (Zomig) Blood Pressure Propranolol (Inderal) Timolol MABs Erenumab (Aimovig) Botulinum Toxin Onabotulimum Toxin A (Botox) Other Medications Prednisone Over the Counter Medications Acetaminophen (Tylenol) Acetaminophen/Aspirin/ Caffeine (Excedrin, Goody?s) Ibuprofen (Advil, Motrin) PAST MEDICAL HISTORY Diagnosis Date Cervicalgia Migraine with aura PAST SURGICAL HISTORY Procedure Laterality Date PAST SURGICAL HISTORY OF Cervical spine fusion C5-6 PAST SURGICAL HISTORY OF CTS b/l PAST SURGICAL HISTORY OF Hysterectomy PAST SURGICAL HISTORY OF Lasik PAST SURGICAL HISTORY OF L elbow ALLERGIES Allergen Reactions Topamax [Topiramate] Mental Status Change Issues and questions to be addressed: Medications propranolol ER (INDERAL LA) 80 mg 24 hr capsule Take 1 capsule by mouth once daily. ubrogepant (UBRELVY) 100 mg tablet Take 1 tab at migraine onset. May repeat once in 2 hours as needed. atogepant (QULIPTA) 60 mg tablet Take 1 tablet (60 mg) by mouth once daily. rosuvastatin (CRESTOR) 5 mg tablet Take 1 tablet by mouth every afternoon. magnesium hydroxide (MAGNESIA ORAL) Take 400 mg by mouth once daily. scopolamine (TRANSDERM-SCOP) 1.5 mg (1 mg over [...] B-12, (VITAMIN B-12 ORAL) Take by mouth. I have reviewed the [place] Status Assessment responses and discussed these with the patient: Yes, Simona Carlson APRN.INFORMATICS NURSE HEADACHE SCORES: 07/14/2023 11/22/2023 03/22/2024 Headache Questions ER visits since last office visit: 0 0 0 Hospital stays since last office visit 0 0 0 Limited ADLs in the last month: 9 8 2 Days missed from work or school in the last month: 0 0 1 Days headache pain free in the last month: 10 12 20 Days per month with ALL of the following symptoms - decreased productivity, light sensitivity and nausea: 9 8 2 Initial improve (more content not included)... Normal [facility] HEALTHon 03-03-2024 ALLIED HEALTH HNO ID: [id number] Author: ELO DUNAWAY MRI Tech Service: Radiology Author Type: Rn Procedures Type: Allied Health Filed: 03/03/2024 12:43 Note Text: Radiology Service Progress Note PATIENT NAME: Myrtle Jones DATE OF SERVICE: March 03, 2024 TIME: 12:42 PM PATIENT IDENTITY VERIFICATION COMPLETED USING TWO (2) IDENTIFIERS: Name and Date of confirmed by patient verbally and Name and Date of confirmed by identification band. FALL SCREENING: Has the patient had 2 falls in the last year or 1 fall with injury or currently using an Ambulatory Assistive Device (Walker, Cane, Wheelchair, Crutches, etc.)? No PATIENT GENDER DATA: Female. status: : No status: NO. PATIENT RELEVANT IMPLANT DATA REVIEWED: Yes PATIENT PRESENTS WITH AN IMPLANTABLE OR ATTACHED REGIONAL CLINICAL DIRECTOR: No RADIOLOGY DEPARTMENT: MR; Exam(s) Completed: Head: Routine Brain Rapid [place] MRA PERIPHERAL IV DATA: Not applicable SIGNED BY: DIVINA Jansen March 03, 2024 12:42 PM [facility] MRA BRAIN WO IVCONon 024 MRA BRAIN WO IVCON * * *Final Report* * * DATE OF EXAM: Mar 03 2024 12:57PM [facility] 0272 - MRA BRAIN WO IVCON / PROCEDURE REASON: multiple diagnoses * * * * Physician Interpretation * * * * EXAMINATION: MRA BRAIN WO IVCON, MRI BRAIN WO IVCON CLINICAL HISTORY: [place] headache Dissection of vertebral artery (HCC) TECHNIQUE: Routine noncontrast MRI brain protocol including diffusion and gradient echo images. Intracranial 3D [id number] MRA with post-processing performed at the modality and 2D multiplanar and 3D maximum intensity projections were created, reviewed and archived. MQ: MRAB_4 COMPARISON: None. RESULT: BRAIN: Acute Change: There is no evidence of restricted diffusion to suggest an acute infarct. Hemorrhage: No evidence of prior parenchymal hemorrhage on the gradient echo images. Mass Lesion/ Mass Effect: No evidence of an intracranial mass or extra-axial fluid collection. No significant mass effect. Chronic Change: Scattered punctate foci of increased T2 and FLAIR signal are noted in the supratentorial white matter which is a nonspecific finding, but likely represents minimal chronic microvascular ischemia. Parenchyma: No significant volume loss for age. The brain parenchyma is otherwise within normal limits of signal intensity and morphology. Ventricles: Normal caliber and morphology. Skull Base: Hypothalamic and pituitary region are grossly normal. Craniocervical junction is normal. No significant marrow replacement process. Vasculature: Major intracranial arterial structures, and dural venous sinuses show typical flow void, suggesting patency by spin echo criteria. Other: The visualized paranasal sinuses and mastoid air cells are clear. The orbits and extracranial soft tissues are unremarkable. INTRACRANIAL MRA: Intracranial ICA segments are normal in course and caliber. No high-grade luminal narrowing. A1 segments are codominant. Imaged ACAs are patent. Normal flow-related signal in the MCAs without proximal large vessel occlusion or high-grade luminal stenosis. Intradural vertebral arteries are patent. Left V4 probably terminates as left PICA, normal variant. Basilar artery is patent. physician practice administrator are patent without high-grade luminal narrowing. IMPRESSION: No acute intracranial abnormality including no evidence of an acute or recent brain parenchymal infarct. Patent intracranial cerebral arterial circulation by MRA. Glost Tile Sorter: ELEAZAR Transcribe Date/Time: Mar 03 2024 1:06P Dictated by : ROSANA SANCHEZ DO This examination was interpreted and the report reviewed and electronically signed by: ROSANA SANCHEZ DO on Mar 03 2024 1:11PM EST [id number] Normal [facility] MRI BRAIN WO IVCONon 024 MRI BRAIN WO IVCON * * *Final Report* * * DATE OF EXAM: Mar 03 2024 12:57PM [facility] 0294 - MRI BRAIN WO IVCON / PROCEDURE REASON: multiple diagnoses * * * * Physician Interpretation * * * * EXAMINATION: MRA BRAIN WO IVCON, MRI BRAIN WO IVCON CLINICAL HISTORY: [place] headache Dissection of vertebral artery (HCC) TECHNIQUE: Routine noncontrast MRI brain protocol including diffusion and gradient echo images. Intracranial 3D [id number] MRA with post-processing performed at the modality and 2D multiplanar and 3D maximum intensity projections were created, reviewed and archived. MQ: MRAB_4 COMPARISON: None. RESULT: BRAIN: Acute Change: There is no evidence of restricted diffusion to suggest an acute infarct. Hemorrhage: No evidence of prior parenchymal hemorrhage on the gradient echo images. Mass Lesion/ Mass Effect: No evidence of an intracranial mass or extra-axial fluid collection. No significant mass effect. Chronic Change: Scattered punctate foci of increased T2 and FLAIR signal are noted in the supratentorial white matter which is a nonspecific finding, but likely represents minimal chronic microvascular ischemia. Parenchyma: No significant volume loss for age. The brain parenchyma is otherwise within normal limits of signal intensity and morphology. Ventricles: Normal caliber and morphology. Skull Base: Hypothalamic and pituitary region are grossly normal. Craniocervical junction is normal. No significant marrow replacement process. Vasculature: Major intracranial arterial structures, and dural venous sinuses show typical flow void, suggesting patency by spin echo criteria. Other: The visualized paranasal sinuses and mastoid air cells are clear. The orbits and extracranial soft tissues are unremarkable. INTRACRANIAL MRA: Intracranial ICA segments are normal in course and caliber. No high-grade luminal narrowing. A1 segments are codominant. Imaged ACAs are patent. Normal flow-related signal in the MCAs without proximal large vessel occlusion or high-grade luminal stenosis. Intradural vertebral arteries are patent. Left V4 probably terminates as left PICA, normal variant. Basilar artery is patent. physician practice administrator are patent without high-grade luminal narrowing. IMPRESSION: No acute intracranial abnormality including no evidence of an acute or recent brain parenchymal infarct. Patent intracranial cerebral arterial circulation by MRA. Glost Tile Sorter: ROBERTS CHAPELPayton Transcribe Date/Time: Mar 03 2024 1:06P Dictated by : ROSANA SANCHEZ DO This examination was interpreted and the report reviewed and electronically signed by: ROSANA SANCHEZ DO on Mar 03 2024 1:11PM EST [id number] [facility] MYRTLE [facility]ON[facility] ([id number]) 1965 F Date Time Provider Department 03/02/24 DEB JERNIGAN RGFV During your visit today, we recorded the following information about you: Deb Jernigan 03/02/2024 2:20 PM Signed Appointment reminder call-spoke with patient -gave directions to office Allergies As of Date: 03/02/2024 Noted Allergy Reaction TOPAMAX (TOPIRAMATE) 05/09/2018 1 - Mental Status Change Date Reviewed: 11/26/2023 Reviewed by: Betsy Bang MA - Fully Assessed Prescriptions as of 03/02/2024 - propranolol ER (INDERAL LA) 80 mg 24 hr capsule Take 1 capsule by mouth once daily. - ubrogepant (UBRELVY) 100 mg tablet Take 1 tab at migraine onset. May repeat once in 2 hours as needed. - atogepant (QULIPTA) 60 mg tablet Take 1 tablet (60 mg) by mouth once daily. - rosuvastatin (CRESTOR) 5 mg tablet Take 1 tablet by mouth every afternoon. - magnesium hydroxide (MAGNESIA ORAL) Take 400 mg by mouth once daily. - scopolamine (TRANSDERM-SCOP) [...] by mouth. Problem List As Of Date 03/02/2024 Noted Resolved Chronic daily headache [R51.9] 10/11/2015 [...] without aura and w*09/23/2020 Cervicalgia [M54.2] 07/24/2022 Chronic migraine without aura, intractable, wit*11/26/2023 Status migrainosus [G43.901] 11/26/2023 Encounter Status:Closed by DEB JERNIGAN on 03/02/24 [facility] CNPNon 12-24-2023 CNPN Telephone (NHMNS2) YMRTLE JONES ([id number]) 1965 F Date Time Provider Department 12/24/23 CRESENCIO ROBLES NHMNS2 During your visit today, we recorded the following information about you: Katia Alexander 12/24/2023 10:27 AM Signed Completed PA over CMM: MYRTLE JONES Palafox: [id number] - PA [id number] Drug Qulipta 60MG tablets Form [place] Commercial Electronic PA Form (2016 [facility]) Approvedtoday Your request was approved based on the initial information provided at the time of the coverage request submission. Please allow additional time for the final decision to be made and added to the patient's account. Katia Alexander Allergies As of Date: 12/24/2023 Noted Allergy Reaction TOPAMAX (TOPIRAMATE) 05/09/2018 1 - Mental Status Change Date Reviewed: 11/26/2023 Reviewed by: Betsy Bang Ma - Fully Assessed Reason for Visit: Insurance Authorization [[id number]] Cmt: Ocyokjc-Ikslej-Wpaox Theraputics Prescriptions as of 12/24/2023 - propranolol ER (INDERAL LA) 80 mg 24 hr capsule Take 1 capsule by mouth once daily. - ubrogepant (UBRELVY) 100 mg tablet Take 1 tab at migraine onset. May repeat once in 2 hours as needed. - atogepant (QULIPTA) 60 mg tablet Take 1 tablet (60 mg) by mouth once daily. - rosuvastatin (CRESTOR) 5 mg tablet Take 1 tablet by mouth every afternoon. - magnesium hydroxide (MAGNESIA ORAL) Take 400 mg by mouth once daily. - scopolamine (TRANSDERM-SCOP) [...] by mouth. Problem List As Of Date 12/24/2023 Noted Resolved Chronic daily headache [R51.9] 10/11/2015 [...] without aura and w*09/23/2020 Cervicalgia [M54.2] 07/24/2022 Chronic migraine without aura, intractable, wit*11/26/2023 Status migrainosus [G43.901] 11/26/2023 Encounter Status:Closed by KATIA ALEXANDER on 12/24/23 [facility] SORAYAMYRTLE ([id number]) 1965 F Date Time Provider Department 12/24/23 CRESENCIO ROBLES NHMNS2 During your visit today, we recorded the following information about you: Katia Alexander 12/24/2023 10:41 AM Signed Completed over CMM: MYRTLE JONES Palafox: [id number] - PA [id number] Drug Ubrelvy 100MG tablets Form [place] [employer] + Electronic PA Form (2016 [facility]) Approvedtoday Your request was approved based on the initial information provided at the time of the coverage request submission. Please allow additional time for the final decision to be made and added to the patient's account. Katia Alexander Allergies As of Date: 12/24/2023 Noted Allergy Reaction TOPAMAX (TOPIRAMATE) 05/09/2018 1 - Mental Status Change Date Reviewed: 11/26/2023 Reviewed by: Betsy Bang Ma - Fully Assessed Reason for Visit: Insurance Authorization [1693] Cmt: Izejtbx-Talhya-Gtnmc Theraputic Prescriptions as of 12/24/2023 - propranolol ER (INDERAL LA) 80 mg 24 hr capsule Take 1 capsule by mouth once daily. - ubrogepant (UBRELVY) 100 mg tablet Take 1 tab at migraine onset. May repeat once in 2 hours as needed. - atogepant (QULIPTA) 60 mg tablet Take 1 tablet (60 mg) by mouth once daily. - rosuvastatin (CRESTOR) 5 mg tablet Take 1 tablet by mouth every afternoon. - magnesium hydroxide (MAGNESIA ORAL) Take 400 mg by mouth once daily. - scopolamine (TRANSDERM-SCOP) [...] by mouth. Problem List As Of Date 12/24/2023 Noted Resolved Chronic daily headache [R51.9] 10/11/2015 [...] without aura and w*09/23/2020 Cervicalgia [M54.2] 07/24/2022 Chronic migraine without aura, intractable, wit*11/26/2023 Status migrainosus [G43.901] 11/26/2023 Encounter Status:Closed by KATIA ALEXANDER on 12/24/23 [facility] MIGUELOVivan 11-26-2023 CNOV Office Visit ([facility]) MYRTLE JONES ([id number]) 1965 F Date Time Provider Department 11/26/23 2:30 PM CRESENCIO ROBLES [facility] During your visit today, we recorded the following information about you: Pulse Blood pressure Weight 65/minute 147/99 80.3 kg Cresencio Robles DO 11/26/2023 3:28 PM [facility] - Follow-up Visit ASSESSMENT: 58 [...] Analgesic Butalbital/acetaminoph en/caffeine (Fioricet) Hydrocodone/Acetaminop hen (Vicodin, [place]) Anti-Migraine Dihydroergotamine (DHE-45, Migranal) Rizatriptan (Maxalt) [...] Analgesic Butalbital/acetaminoph en/caffeine (Fioricet) Hydrocodone/Acetaminop hen (Vicodin, [place]) Anti-Migraine Dihydroergotamine (DHE-45, Migranal) Rizatriptan (Maxalt) [...] in the (more content not included)... Normal [facility] CNPNon 10-13-2023 CNPN Telephone (MNOPRX) MYRTLE JONES ([id number]) 1965 F Date Time Provider Department 10/13/23 SALMA CALLEJAS MNOPRX During your visit today, we recorded the following information about you: Salma Callejas RN 10/13/2023 1:37 PM Signed [facility] received prescription(s) for Aimovig 140MG/ML auto-injectors. Benefits investigation was conducted, indicating that a prior authorization is required. PA was initiated and pending review through [employer]. All pertinent clinical information was submitted to insurance. CMM Palafox: [id number] Ordering Provider: Cresencio Robles DO Murtaugh, Alisha, RN [facility] P: , F: Salma Callejas RN 10/20/2023 1:25 PM Signed Ambulatory Pharmacy Prior Authorization Note Provider Intervention Required?: No- Pharmacy completed on your behalf. Rx Plan: Other: bcbs Drug: Aimovig 140MG/ML auto-injectors Cover My Meds Palafox: [id number] Determination: Approved Prior Authorization/Case #: [id number] Prior Authorization Expiration: 10/16/2024 Time to PA [...] refills. Prescriptions will now be processed through [facility] for determination of next steps. For questions relating to this submission, please contact [facility] at [phone] Allergies As of Date: 10/13/2023 Noted Allergy Reaction TOPAMAX (TOPIRAMATE) 05/09/2018 1 - Mental Status Change Date Reviewed: 07/21/2023 Reviewed by: Betsy Bang Ma - Fully Assessed Reason for Visit: Insurance Authorization [1693] Cmt: Aimovig 140MG/ML auto-injectors Prescriptions as of [...] Encounter Status:Closed by SALMA CALLEJAS on 10/20/23 [facility] 09-09-[address] [facility] Telephone (NHMNS2) MYRTLE JONES ([id number]) 1965 F Date Time Provider Department 09/09/23 CRESENCIO ROBLES [facility] During your visit today, we recorded the following information about you: Katia Alexander 09/09/2023 2:38 PM Signed Completed over CMM: MYRTLE JONES Palafox: [id number] - PA [id number] Drug Trudhesa 0.725MG/ACT aerosol Form [place] [employer] Electronic PA Form (2016 [facility]) Approvedtoday Your request was approved based on the initial information provided at the time of the coverage request submission. Please allow additional time for the final decision to be made and added to the patient's account. Kyree Floresa 09/10/2023 9:53 AM Signed Rec'd approval via fax. Effective 09/09/2023-09/09/2024 Auth #: Approval scanned to chart via [employer] Patient informed via [facility]. Allergies As of Date: 09/09/2023 Noted Allergy Reaction TOPAMAX (TOPIRAMATE) 05/09/2018 1 - Mental Status Change Date Reviewed: 07/21/2023 Reviewed by: Betsy Bang Ma - Fully Assessed Reason for Visit: Insurance Authorization [[id number]] Cmt: TRUDHESA Prescriptions as of 09/10/2023 - [...] Status:Closed by KATIA ALEXANDER on 09/09/23 Normal [facility] MM screening mammo BI w/CADo n 07-29-2023 MM screening mammo BI w/CAD [facility] [place] [address] [place] [address] Mammography Report Signed Patient: Myrtle Jones MR#: [id number] : 1965 Acct:[id number] Age/Sex: 58 / F ADM Date: 07/29/23 Loc: [place] Room: Type: [facility] Attending Dr: Anand Garcia DO Copies to: [...] Seth Monroe M.D.07/29/2023 3:41 PM Dictation Location: [id number] Transcribed By: [facility] 07/29/23 154 Dictated By: Seth Monroe DO 07/29/23 1540 Signed By: 07/29/[address] [facility] CNOVon 07-21-2023 CNOV Office Visit ([facility]FB) MYRTLE JONES ([id number]) 1965 F Date Time Provider Department 07/21/23 8:30 AM CRESENCIO ROBLES [facility] During your visit today, we recorded the following information about you: Pulse Blood pressure Weight 59/minute 154/89 82.6 kg Cresencio Robles DO 07/21/2023 8:59 AM Signed [facility] [...] Analgesic Butalbital/acetaminoph en/caffeine (Fioricet) Hydrocodone/Acetaminop hen (Vicodin, [place]) Anti-Migraine Dihydroergotamine (DHE-45, Migranal) Rizatriptan (Maxalt) [...] MONTH. ZAZUETA (more content not included)... [facility] 01-04-2023 PTH, Intact 27 pg/mL Normal 15-65 [facility] Comment on above: Performed By: #### P THINT #### [facility] [address] [place] [address] Dr. Angus Hernandez HEMOGLOBIN AND HEMATOCRITon 01-02-2023 Hematocrit (Bld) [Volume fraction] 37.2 % Normal 36.0-48.0 [facility] Comment on above: Performed By: #### H GBHCT #### [facility] [address] [place] [address] Dr. Angus Hernandez Hemoglobin (Bld) [Mass/Vol] 12.9 g/dL Normal 12.0-16.0 [facility] Comment on above: Performed By: #### H GBHCT #### [facility] [address] [place] [address] Dr. Angus Hernandez HEMOGRAM AND PLATELon 2022 Hematocrit (Bld) [Volume fraction] 37.2 % Normal 36.0-48.0 [facility] Comment on above: Performed By: #### P THINT #### [facility] [address] [place] [address] Dr. Angus Hernandez Hemoglobin (Bld) [Mass/Vol] 12.9 g/dL Normal 12.0-16.0 [facility] Comment on above: Performed By: #### P THINT #### [facility] [address] [place] [address] Dr. Angus Hernandez MCH (RBC) [Entitic mass] 29.6 pg Normal 26.7-34.0 [facility] Comment on above: Performed By: #### P THINT #### [facility] [address] [place] [address] Dr. Angus Hernandez MCHC (RBC) [Mass/Vol] 32.2 g/dL Normal 29.9-35.2 [facility] Comment on above: Performed By: #### P THINT #### [facility] [address] [place] [address] Dr. Angus Hernandez MCV (RBC) [Entitic vol] 91.7 fL Normal 81.0-99.0 [facility] Comment on above: Performed By: #### P THINT #### [facility] [address] [place] [address] Dr. Angus Hernandez PLT 294 103/ul Normal 150-450 [facility] Comment on above: Performed By: #### P THINT #### [facility] [address] [place] [address] Dr. Angus Hernandez RBC 4.33 106/ul Normal 4.20-5.40 [facility] Comment on above: Performed By: #### P THINT #### [facility] [address] [place] [address] Dr. Angus Hernandez WBC 6.8 103/ul Normal 4.0-11.0 [facility] Comment on above: Performed By: #### P THINT #### [facility] [address] [place] [address] Dr. Agnus Hernandez MAGNESIUMon 01-02-2023 Magnesium [Mass/Vol] 1.6 mg/dL Critically low 1.8-2.4 [facility] Comment on above: Performed By: #### H H #### [facility] [address] [place] [address] Dr. Angus Hernandez RENAL FUNCTION PANELon 01-02 Albumin [Mass/Vol] 3.9 g/dL Normal 3.4-5.0 [facility] Comment on above: Performed By: #### H H #### [facility] [address] [place] [address] Dr. Angus Hernandez Calcium [Mass/Vol] 8.9 mg/dL Normal 8.5-10.1 [facility] Comment on above: Performed By: #### H H #### [facility] [address] [place] [address] Dr. Angus Hernandez Chloride [Moles/Vol] 110 mmol/L Critically high 98-107 [facility] Comment on above: Performed By: #### H H #### [facility] [address] [address] [address] Angus Hernandez CO2 [Moles/Vol] 24.1 mmol/L Normal 21.0-32.0 [facility] Comment on above: Performed By: #### H H #### [facility] [address] [address] [address] Angus Hernandez Creatinine [Mass/Vol] 1.16 mg/dL Critically high 0.55-1.02 [facility] Comment on above: Performed By: #### H H #### [facility] [address] [address] [address] Angus Hernandez EGFR-AF IVORIAN 59 mL/min/1.73m2 Critically low >=60 [facility] Comment on above: Performed By: #### H H #### [facility] [address] [address] [address] Angus Hernandez EGFR-NON AF IVORIAN 49 mL/min/1.73m2 Critically low >=60 [facility] Comment on above: Performed By: #### H H #### [facility] [address] [address] [address] Angus Hernandez Glucose [Mass/Vol] 108 mg/dL Critically high 74-106 [facility] Comment on above: Performed By: #### H H #### [facility] [address] [address] [address] Angus Hernandez Phosphate [Mass/Vol] 3.4 mg/dL Normal 2.6-4.7 [facility] Comment on above: Performed By: #### H H #### [facility] [address] [address] [address] Angus Hernandez Potassium [Moles/Vol] 4.4 mmol/L Normal 3.5-5.1 [facility] Comment on above: Performed By: #### H H #### [facility] [address] [address] [address] Angus Hernandez Sodium [Moles/Vol] 146 mmol/L Critically high 136-145 [facility] Comment on above: Performed By: #### H H #### [facility] [address] [address] [address] Angus Hernandez Urea nitrogen [Mass/Vol] 17.0 mg/dL Normal 7.0-18.0 [facility] Comment on above: Performed By: #### H H #### [facility] [address] [place] [address] Dr. Angus Hernandez UA RANDOM W/MICROSCOPICon BACTERIA NONE SEEN Normal NONE SEEN [facility] Comment on above: Performed By: #### U AMIC #### [facility] [address] [place] [address] Dr. Angus Hernandez Bilirubin Ql (U) Negative Normal NEGATIVE [facility] Comment on above: Performed By: #### U AMIC #### [facility] [address] [place] [address] Dr. Angus Hernandez CAST NONE SEEN Normal NONE SEEN [facility] Comment on above: Performed By: #### U AMIC #### [facility] [address] [place] [address] Dr. Angus Hernandez Clarity (U) CLEAR Normal CLEAR [facility] Comment on above: Performed By: #### U AMIC #### [facility] [address] [address] [address] Angus Hernandez Color (U) LT. YELLOW Normal YELLOW [facility] Comment on above: Performed By: #### U AMIC #### [facility] [address] [address] [address] Angus Hernandez Crystals LM Nom (Urine sed) NONE SEEN Normal NONE SEEN [facility] Comment on above: Performed By: #### U AMIC #### [facility] [address] [address] [address] Angus Hernandez Epithelial cells LM Ql (Urine sed) FEW Abnormal NONE SEEN /RARE [facility] Comment on above: Performed By: #### U AMIC #### [facility] [address] [place] [address] Dr. Angus Hernandez Glucose Ql (U) Negative Normal NEGATIVE [facility] Comment on above: Performed By: #### U AMIC #### [facility] [address] [address] [address] Angus Hernandez Hemoglobin Ql (U) Negative Normal NEGATIVE [facility] Comment on above: Performed By: #### U AMIC #### [facility] [address] [address] [address] Angus Hernandez Ketones Ql (U) Negative Normal NEGATIVE [facility] Comment on above: Performed By: #### U AMIC #### [facility] [address] [address] [address] Angus Hernandez LEUKOCYTES Negative Normal NEGATIVE [facility] Comment on above: Performed By: #### U AMIC #### [facility] [address] [place] [address] Dr. Angus Hernandez MUCOUS MODERATE Abnormal NONE SEEN [facility] Comment on above: Performed By: #### U AMIC #### [facility] [address] [place] [address] Dr. Angus Hernandez Nitrite Ql (U) Negative Normal NEGATIVE [facility] Comment on above: Performed By: #### U AMIC #### [facility] [address] [address] [address] Angus Hernandez pH (U) 5.5 [pH] Normal 5-9 [facility] Comment on above: Performed By: #### U AMIC #### [facility] [address] [place] [address] Dr. Angus Hernandez RBC NONE SEEN Abnormal 0-2 [facility] Comment on above: Performed By: #### U AMIC #### [facility] [address] [place] [address] Dr. Angus Hernandez SPEC GRAVITY 1.025 Normal 1.005-<=1.025 [facility] Comment on above: Performed By: #### U AMIC #### [facility] [address] [place] [address] Dr. Angus Hernandez UA PROTEIN Negative Normal NEGATIVE/ TRACE [facility] Comment on above: Performed By: #### U AMIC #### [facility] [address] [place] [address] Dr. Angus Hernandez Urobilinogen Qn (U) 0.2 {Tara'U}/dL Normal 0.2 - 1. 0 [facility] Comment on above: Performed By: #### U AMIC #### [facility] [address] [place] [address] Dr. Angus Hernandez WBC NONE SEEN Normal NONE SEEN [facility] Comment on above: Performed By: #### U AMIC #### [facility] [address] [address] [address] Angus Hernandez URIC ACID SERUMon 01-02-2023 Urate [Mass/Vol] 4.7 mg/dL Normal 2.6-6.0 [facility] Comment on above: Performed By: #### H H #### [facility] [address] [place] [address] Dr. Angus Hernandez URINE T PROTEIN CREAT RATIOo n 01-02-2023 Protein (U) [Mass/Vol] 10.4 mg/dL Normal <=12.0 [facility] Comment on above: Performed By: #### H GBHCT #### [facility] [address] [address] [address] Angus Hernandez UR PROT CREAT RAT 0.08 Normal [facility] Comment on above: Performed By: #### H GBHCT #### [facility] [address] [place] [address] Dr. Angus Hernandez URINE CREAT 131.12 mg/dL Normal 20.00-300.00 [facility] Comment on above: Performed By: #### H GBHCT #### [facility] [address] [place] [address] Dr. Angus Hernandez VITAMIN D 25 OHon 01-02-2023 VIT D 25-OH 115.2 ng/mL Normal [facility] Comment on above: Performed By: #### H GBHCT #### [facility] [address] [place] [address] Dr. Angus Hernandez VIT D RANGES SEE BELOW Normal [facility] Comment on above: Result Comment: <20 ng/mL Vit D deficient 20 - <30 ng/mL Vit D insufficient 30 - 100 ng/mL Vit D sufficient >100 ng/mL Potential Toxicity Performed By: #### H GBHCT #### [facility] [address] [place] [address] Dr. Angus Hernandez CBC AUTO DIFFon 11-14-2022 BASO # 0.0 103/ul Normal 0.0-0.1 [facility] Comment on above: Performed By: #### H GBHCT #### [facility] [address] [place] [address] Dr. Angus Hernandez Basophils/100 WBC (Bld) 0.5 % Normal 0.2-2.0 [facility] Comment on above: Performed By: #### H GBHCT #### [facility] [address] [place] [address] Dr. Angus Hernandez EO # 0.0 103/ul Normal 0.0-0.7 [facility] Comment on above: Performed By: #### H GBHCT #### [facility] [address] [place] [address] Dr. Angus Hernandez Eosinophils/100 WBC (Bld) 0.0 % Critically low 0.9-7.0 [facility] Comment on above: Performed By: #### H GBHCT #### [facility] [address] [place] [address] Dr. Angus Hernandez Erythrocyte distribution width (RBC) [Ratio] 12.7 % Normal 11.0-15.0 [facility] Comment on above: Performed By: #### H GBHCT #### [facility] [address] [place] [address] Dr. Angus Hernandez Hematocrit (Bld) [Volume fraction] 38.1 % Normal 36.0-48.0 [facility] Comment on above: Performed By: #### H GBHCT #### [facility] [address] [place] [address] Dr. Angus Hernandez Hemoglobin (Bld) [Mass/Vol] 13.1 g/dL Normal 12.0-16.0 [facility] Comment on above: Performed By: #### H GBHCT #### [facility] [address] [address] [address] Angus Hernandez IG # 0.02 10e3/ul Normal 0.00-0.03 [facility] Comment on above: Performed By: #### H GBHCT #### [facility] [address] [address] [address] Angus Hernandez IG % 0.3 % Normal 0.0-0.5 [facility] Comment on above: Performed By: #### H GBHCT #### [facility] [address] [address] [address] Angus Hernandez LYMPH # 2.8 103/ul Normal 1.2-3.8 [facility] Comment on above: Performed By: #### H GBHCT #### [facility] [address] [place] [address] Dr. Angus Hernandez Lymphocytes/100 WBC (Bld) 36.3 % Normal 20.5-60.0 [facility] Comment on above: Performed By: #### H GBHCT #### [facility] [address] [address] [address] Angus Hernandez MANUAL DIFF REQ NO Normal [facility] Comment on above: Performed By: #### H GBHCT #### [facility] [address] [place] [address] Dr. Angus Hernandez MCH (RBC) [Entitic mass] 29.4 pg Normal 26.7-34.0 [facility] Comment on above: Performed By: #### H GBHCT #### [facility] [address] [address] [address] Angus Hernandez MCHC (RBC) [Mass/Vol] 34.4 g/dL Normal 29.9-35.2 [facility] Comment on above: Performed By: #### H GBHCT #### [facility] [address] [place] [address] Dr. Angus Hernandez MCV (RBC) [Entitic vol] 85.6 fL Normal 81.0-99.0 [facility] Comment on above: Performed By: #### H GBHCT #### [facility] [address] [address] [address] Angus Hernandez MONO # 0.5 103/ul Normal 0.3-0.8 [facility] Comment on above: Performed By: #### H GBHCT #### [facility] [address] [address] [address] Angus Hernandez Monocytes/100 WBC (Bld) 7.1 % Normal 1.7-12.0 [facility] Comment on above: Performed By: #### H GBHCT #### [facility] [address] [place] [address] Dr. Angus Hernandez NEUT # 4.3 103/ul Normal 1.4-6.5 [facility] Comment on above: Performed By: #### H GBHCT #### [facility] [address] [place] [address] Dr. Angus Hernandez Neutrophils/100 WBC (Bld) 55.8 % Normal 43.0-75.0 [facility] Comment on above: Performed By: #### H GBHCT #### [facility] [address] [place] [address] Dr. Angus Hernandez Platelet mean volume (Bld) [Entitic vol] 10.4 fL Normal 9.5-13.5 [facility] Comment on above: Performed By: #### H GBHCT #### [facility] [address] [place] [address] Dr. Angus Hernandez PLT 295 103/ul Normal 150-450 [facility] Comment on above: Performed By: #### H GBHCT #### [facility] [address] [place] [address] Dr. Angus Hernandez RBC 4.45 106/ul Normal 4.20-5.40 [facility] Comment on above: Performed By: #### H GBHCT #### [facility] [address] [place] [address] Dr. Angus Hernandez WBC 7.6 103/ul Normal 4.0-11.0 [facility] [facility] Comment on above: Performed By: #### H GBHCT #### [facility] [address] [address] [address] Angus Hernandez GLYCOHEMOGLOBIN A1Con 2022 ADA RECOMMENDATION SEE BELOW Normal [facility] Comment on above: Result Comment: ADA RECOMMENDED LIMIT 4.0 - 6.0 ADA THERAPEUTIC TARGET < 7.0 ACTION SUGGESTED > 7.0 Performed By: #### P THINT #### [facility] [address] [address] [address] Angus Hernandez Glucose [Mass/Vol] 103 mg/dL Normal [facility] Comment on above: Performed By: #### P THINT #### [facility] [address] [place] [address] Dr. Angus Hernandez HbA1c (Bld) [Mass fraction] 5.2 % Normal 4.5-6.2 [facility] Comment on above: Performed By: #### P THINT #### [facility] [address] [place] [address] Dr. Angus Hernandez LIPID PROFILEon 11-14-2022 CHOL-HDL RATIO NORM SEE BELOW Normal [facility] Comment on above: Result Comment: 3.3 - 4.4 LOW RISK 4.4 - 7.1 AVERAGE RISK 7.1 - 11.0 MODERATE RISK >11.0 HIGH RISK Performed By: #### P THINT #### [facility] [address] [place] [address] Dr. Angus Hernandez Cholesterol [Mass/Vol] 195 mg/dL Normal <=200 [facility] Comment on above: Performed By: #### P THINT #### [facility] [address] [place] [address] Dr. Angus Hernandez Cholesterol in HDL [Mass/Vol] 42 mg/dL Normal 40-60 [facility] Comment on above: Performed By: #### P THINT #### [facility] [address] [place] [address] Dr. Angus Hernandez Cholesterol in LDL [Mass/Vol] 107.0 mg/dL Normal [facility] Comment on above: Performed By: #### P THINT #### [facility] [address] [place] [address] Dr. Angus Hernandez Cholesterol.total/Cho lesterol in HDL [Mass ratio] 4.6 {ratio} Normal [facility] Comment on above: Performed By: #### P THINT #### [facility] [address] [address] [address] Angus Hernandez HDL NORMAL > or = 60 mg/dl - LO W CARDIOVASCULAR RISK <40 mg/dl - HIGH CARDIOVASCULAR RISK Normal [facility] Comment on above: Performed By: #### P THINT #### [facility] [address] [address] [address] Angus Hernandez LDL CALC NORMAL SEE BELOW Normal [facility] Comment on above: Result Comment: <100 mg/dl OPTIMAL 100 - 129 mg/dl NEAR OR ABOVE OPTIMAL 130 - 159 mg/dl BORDERLINE HIGH 160 - 189 mg/dl HIGH >190 mg/dl VERY HIGH Performed By: #### P THINT #### [facility] [address] [address] [address] Angus Hernandez Triglyceride [Mass/Vol] 230 mg/dL Critically high <=150 [facility] Comment on above: Performed By: #### P THINT #### [facility] [address] [address] [address] Angus Hernandez VLDL CALC 46.0 mg/dL Normal [facility] Comment on above: Performed By: #### P THINT #### [facility] [address] [address] [address] Angus Hernandez PROF 14(COMP METB)on 023 Albumin [Mass/Vol] 3.9 g/dL Normal 3.4-5.0 [facility] Comment on above: Performed By: #### P THINT #### [facility] [address] [address] [address] Angus Hernandez Albumin/Globulin [Mass ratio] 1.1 {ratio} Normal [facility] Comment on above: Performed By: #### P THINT #### [facility] [address] [address] [address] Angus Hernandez ALP [Catalytic activity/Vol] 58 U/L Normal 46-116 [facility] Comment on above: Performed By: #### P THINT #### [facility] [address] [address] [address] Angus Hernandez ALT [Catalytic activity/Vol] 14 U/L Normal 14-59 [facility] Comment on above: Performed By: #### P THINT #### [facility] [address] [address] [address] Angus Hernandez Anion gap [Moles/Vol] 11.3 mmol/L Normal [facility] Comment on above: Performed By: #### P THINT #### [facility] [address] [address] [address] Angus Hernandez AST [Catalytic activity/Vol] 20 U/L Normal 15-37 [facility] Comment on above: Performed By: #### P THINT #### [facility] [address] [address] [address] Angus Hernandez Bilirubin [Mass/Vol] 0.7 mg/dL Normal 0.2-1.0 [facility] Comment on above: Performed By: #### P THINT #### [facility] [address] [address] [address] Angus Hernandez Calcium [Mass/Vol] 9.2 mg/dL Normal 8.5-10.1 [facility] Comment on above: Performed By: #### P THINT #### [facility] [address] [address] [address] Angus Hernandez Chloride [Moles/Vol] 106 mmol/L Normal 98-107 [facility] Comment on above: Performed By: #### P THINT #### [facility] [address] [address] [address] Angus Hernandez CO2 [Moles/Vol] 28.8 mmol/L Normal 21.0-32.0 [facility] Comment on above: Performed By: #### P THINT #### [facility] [address] [address] [address] Angus Hernandez Creatinine [Mass/Vol] 1.15 mg/dL Critically high 0.55-1.02 [facility] Comment on above: Performed By: #### P THINT #### [facility] [address] [address] [address] Angus Hernandez EGFR-AF IVORIAN 59 mL/min/1.73m2 Critically low >=60 [facility] Comment on above: Performed By: #### P THINT #### [facility] [address] [address] [address] Angus Hernandez EGFR-NON AF IVORIAN 49 mL/min/1.73m2 Critically low >=60 [facility] Comment on above: Performed By: #### P THINT #### [facility] [address] [address] [address] Angus Hernandez Globulin (S) [Mass/Vol] 3.4 g/dL Normal [facility] Comment on above: Performed By: #### P THINT #### [facility] [address] [address] [address] Angus Hernandez Glucose [Mass/Vol] 112 mg/dL Critically high 74-106 [facility] Comment on above: Performed By: #### P THINT #### [facility] [address] [address] [address] Angus Hernandez Potassium [Moles/Vol] 4.1 mmol/L Normal 3.5-5.1 [facility] Comment on above: Performed By: #### P THINT #### [facility] [address] [address] [address] Angus Hernandez Protein [Mass/Vol] 7.3 g/dL Normal 6.4-8.2 [facility] Comment on above: Performed By: #### P THINT #### [facility] [address] [address] [address] Angus Hernandez Sodium [Moles/Vol] 142 mmol/L Normal 136-145 [facility] Comment on above: Performed By: #### P THINT #### [facility] [address] [address] [address] Angus Hernandez Urea nitrogen [Mass/Vol] 17.0 mg/dL Normal 7.0-18.0 [facility] Comment on above: Performed By: #### P THINT #### [facility] [address] [place] [address] Dr. Angus Hernandez Urea nitrogen/Creatinine [Mass ratio] 14.8 mg/mg Normal [facility] Comment on above: Performed By: #### P THINT #### [facility] [address] [place] [address] Dr. Angus Hernandez TSHon 11-14-2022 TSH 1.092 uIU/mL Normal 0.358-3.740 [facility] Comment on above: Performed By: #### P THINT #### [facility] [address] [place] [address] Dr. Angus Hernandez CORTISOL Tomas 05-28-2022 Cortisol AM 13.1 ug/dL Normal 6.2-19.4 [facility] Comment on above: Performed By: #### H GBHCT #### [facility] [address] [place] [address] Dr. Angus Hernandez CORTISOL PMon 05-28-2022 Cortisol PM 4.1 ug/dL Normal 2.3-11.9 [facility] Comment on above: Performed By: #### H H #### [facility] [address] [place] [address] Dr. Angus Hernandez INSULINon 05-28-2022 Insulin 7.6 uIU/mL Normal 2.6-24.9 [facility] Comment on above: Performed By: #### I NSULIN #### [facility] [address] [place] [address] Dr. Angus Hernandez XR CSPINE MIN 4 [...] Date: 2022-05-27 07:57 Normal [facility] XR TSPINE 3 VIEWSon 05-27-20 22 XR [...] Date: 2022-05-27 08:00 Normal [facility] CBC AUTO DIFFon 05-09-2022 BASO # 0.1 103/ul Normal 0.0-0.1 [facility] Comment on above: Performed By: #### C BC #### [facility] [address] [address] [address] Angus Hernandez Basophils/100 WBC (Bld) 0.7 % Normal 0.2-2.0 [facility] Comment on above: Performed By: #### C BC #### [facility] [address] [address] [address] Angus Hernandez EO # 0.2 103/ul Normal 0.0-0.7 [facility] Comment on above: Performed By: #### C BC #### [facility] [address] [address] [address] Angus Hernandez Eosinophils/100 WBC (Bld) 2.4 % Normal 0.9-7.0 [facility] Comment on above: Performed By: #### C BC #### [facility] [address] [address] [address] Angus Hernandez Erythrocyte distribution width (RBC) [Ratio] 12.8 % Normal 11.0-15.0 [facility] Comment on above: Performed By: #### C BC #### [facility] [address] [address] [address] Angus Hernandez Hematocrit (Bld) [Volume fraction] 35.9 % Critically low 36.0-48.0 [facility] Comment on above: Performed By: #### C BC #### [facility] [address] [place] [address] Dr. Angus Hernandez Hemoglobin (Bld) [Mass/Vol] 12.0 g/dL Normal 12.0-16.0 [facility] Comment on above: Performed By: #### C BC #### [facility] [address] [place] [address] Dr. Angus Hernandez IG # 0.03 10e3/ul Normal 0.00-0.03 [facility] Comment on above: Performed By: #### C BC #### [facility] [address] [place] [address] Dr. Angus Hernandez IG % 0.4 % Normal 0.0-0.5 [facility] Comment on above: Performed By: #### C BC #### [facility] [address] [place] [address] Dr. Angus Hernandez LYMPH # 2.2 103/ul Normal 1.2-3.8 [facility] Comment on above: Performed By: #### C BC #### [facility] [address] [place] [address] Dr. Angus Hernandez Lymphocytes/100 WBC (Bld) 32.7 % Normal 20.5-60.0 [facility] Comment on above: Performed By: #### C BC #### [facility] [address] [place] [address] Dr. Angus Hernandez MANUAL DIFF REQ NO Normal [facility] Comment on above: Performed By: #### C BC #### [facility] [address] [place] [address] Dr. Angus Hernandez MCH (RBC) [Entitic mass] 30.7 pg Normal 26.7-34.0 [facility] Comment on above: Performed By: #### C BC #### [facility] [address] [address] [address] Angus Hernandez MCHC (RBC) [Mass/Vol] 33.4 g/dL Normal 29.9-35.2 [facility] Comment on above: Performed By: #### C BC #### [facility] [address] [address] [address] Angus Hernandez MCV (RBC) [Entitic vol] 91.8 fL Normal 81.0-99.0 [facility] Comment on above: Performed By: #### C BC #### [facility] [address] [place] [address] Dr. Angus Hernandez MONO # 0.5 103/ul Normal 0.3-0.8 [facility] Comment on above: Performed By: #### C BC #### [facility] [address] [place] [address] Dr. Angus Hernandez Monocytes/100 WBC (Bld) 7.1 % Normal 1.7-12.0 [facility] Comment on above: Performed By: #### C BC #### [facility] [address] [place] [address] Dr. Angus Hernandez NEUT # 3.8 103/ul Normal 1.4-6.5 [facility] Comment on above: Performed By: #### C BC #### [facility] [address] [place] [address] Dr. Angus Hernandez Neutrophils/100 WBC (Bld) 56.7 % Normal 43.0-75.0 [facility] Comment on above: Performed By: #### C BC #### [facility] [address] [place] [address] Dr. Angus Hernandez Platelet mean volume (Bld) [Entitic vol] 10.4 fL Normal 9.5-13.5 [facility] Comment on above: Performed By: #### C BC #### [facility] [address] [place] [address] Dr. Angus Hernandez PLT 243 103/ul Normal 150-450 [facility] Comment on above: Performed By: #### C BC #### [facility] [address] [address] [address] Angus Hernandez RBC 3.91 106/ul Critically low 4.20-5.40 [facility] Comment on above: Performed By: #### C BC #### [facility] [address] [place] [address] Dr. Angus Hernandez WBC 6.7 103/ul Normal 4.0-11.0 [facility] Comment on above: Performed By: #### C BC #### [facility] [address] [address] [address] Angus Hernandez GLYCOHEMOGLOBIN A1Con 2021 ADA RECOMMENDATION SEE BELOW Normal [facility] Comment on above: Result Comment: ADA RECOMMENDED LIMIT 4.0 - 6.0 ADA THERAPEUTIC TARGET < 7.0 ACTION SUGGESTED > 7.0 Performed By: #### H GBHCT #### [facility] [address] [place] [address] Dr. Angus Henrandez Glucose [Mass/Vol] 111 mg/dL Normal [facility] Comment on above: Performed By: #### H GBHCT #### [facility] [address] [place] [address] Dr. Angus Hernandez HbA1c (Bld) [Mass fraction] 5.5 % Normal 4.5-6.2 [facility] Comment on above: Performed By: #### H GBHCT #### [facility] [address] [place] [address] Dr. Angus Hernandez LIPID PROFILEon 05-09-2022 CHOL-HDL RATIO NORM SEE BELOW Normal [facility] Comment on above: Result Comment: 3.3 - 4.4 LOW RISK 4.4 - 7.1 AVERAGE RISK 7.1 - 11.0 MODERATE RISK >11.0 HIGH RISK Performed By: #### L IPID, CMP #### [facility] [address] [place] [address] Dr. Angus Hernandez Cholesterol [Mass/Vol] 188 mg/dL Normal <=200 [facility] Comment on above: Performed By: #### L IPID, CMP #### [facility] [address] [place] [address] Dr. Angus Hernandez Cholesterol in HDL [Mass/Vol] 40 mg/dL Normal 40-60 [facility] Comment on above: Performed By: #### L IPID, CMP #### [facility] [address] [address] [address] Angus Hernandez Cholesterol in LDL [Mass/Vol] 93.4 mg/dL Normal [facility] Comment on above: Performed By: #### L IPID, CMP #### [facility] [address] [address] [address] Angus Hernandez Cholesterol.total/Cho lesterol in HDL [Mass ratio] 4.7 {ratio} Normal [facility] Comment on above: Performed By: #### L IPID, CMP #### [facility] [address] [place] [address] Dr. Angus Hernandez HDL NORMAL > or = 60 mg/dl - LO W CARDIOVASCULAR RISK <40 mg/dl - HIGH CARDIOVASCULAR RISK Normal [facility] Comment on above: Performed By: #### L IPID, CMP #### [facility] [address] [place] [address] Dr. Angus Hernandez LDL CALC NORMAL SEE BELOW Normal [facility] Comment on above: Result Comment: <100 mg/dl OPTIMAL 100 - 129 mg/dl NEAR OR ABOVE OPTIMAL 130 - 159 mg/dl BORDERLINE HIGH 160 - 189 mg/dl HIGH >190 mg/dl VERY HIGH Performed By: #### L IPID, CMP #### [facility] [address] [place] [address] Dr. Angus Hernandez Triglyceride [Mass/Vol] 273 mg/dL Critically high <=150 [facility] Comment on above: Performed By: #### L IPID, CMP #### [facility] [address] [place] [address] Dr. Angus Hernandez VLDL CALC 54.6 mg/dL Normal [facility] Comment on above: Performed By: #### L IPID, CMP #### [facility] [address] [place] [address] Dr. Angus Hernandez PROF 14(COMP METB)on 022 Albumin [Mass/Vol] 3.7 g/dL Normal 3.4-5.0 [facility] Comment on above: Performed By: #### L IPID, CMP #### [facility] [address] [address] [address] Angus Hernandez Albumin/Globulin [Mass ratio] 1.1 {ratio} Normal [facility] Comment on above: Performed By: #### L IPID, CMP #### [facility] [address] [address] [address] Angus Hernandez ALP [Catalytic activity/Vol] 46 U/L Normal 46-116 [facility] Comment on above: Performed By: #### L IPID, CMP #### [facility] [address] [address] [address] Angus Hernandez ALT [Catalytic activity/Vol] 26 U/L Normal 14-59 [facility] Comment on above: Performed By: #### L IPID, CMP #### [facility] [address] [address] [address] Angus Hernandez Anion gap [Moles/Vol] 10.9 mmol/L Normal [facility] Comment on above: Performed By: #### L IPID, CMP #### [facility] [address] [place] [address] Dr. Angus Hernandez AST [Catalytic activity/Vol] 15 U/L Normal 15-37 [facility] Comment on above: Performed By: #### L IPID, CMP #### [facility] [address] [address] [address] Angus Hernandez Bilirubin [Mass/Vol] 0.6 mg/dL Normal 0.2-1.0 [facility] Comment on above: Performed By: #### L IPID, CMP #### [facility] [address] [address] [address] Angus Hernandez Calcium [Mass/Vol] 9.0 mg/dL Normal 8.5-10.1 [facility] Comment on above: Performed By: #### L IPID, CMP #### [facility] [address] [address] [address] Angus Hernandez Chloride [Moles/Vol] 107 mmol/L Normal 98-107 [facility] Comment on above: Performed By: #### L IPID, CMP #### [facility] [address] [place] [address] Dr. Angus Hernandez CO2 [Moles/Vol] 27.3 mmol/L Normal 21.0-32.0 [facility] Comment on above: Performed By: #### L IPID, CMP #### [facility] [address] [place] [address] Dr. Angus Hernandez Creatinine [Mass/Vol] 1.19 mg/dL Critically high 0.55-1.02 [facility] Comment on above: Performed By: #### L IPID, CMP #### [facility] [address] [place] [address] Dr. Angus Hernandez EGFR-AF IVORIAN 57 mL/min/1.73m2 Critically low >=60 [facility] Comment on above: Performed By: #### L IPID, CMP #### [facility] [address] [place] [address] Dr. Angus Hernandez EGFR-NON AF IVORIAN 47 mL/min/1.73m2 Critically low >=60 [facility] Comment on above: Performed By: #### L IPID, CMP #### [facility] [address] [place] [address] Dr. Angus Hernandez Globulin (S) [Mass/Vol] 3.5 g/dL Normal [facility] Comment on above: Performed By: #### L IPID, CMP #### [facility] [address] [place] [address] Dr. Angus Hernandez Glucose [Mass/Vol] 108 mg/dL Critically high 74-106 [facility] Comment on above: Performed By: #### L IPID, CMP #### [facility] [address] [place] [address] Dr. Angus Hernandez Potassium [Moles/Vol] 4.2 mmol/L Normal 3.5-5.1 [facility] Comment on above: Performed By: #### L IPID, CMP #### [facility] [address] [place] [address] Dr. Angus Hernandez Protein [Mass/Vol] 7.2 g/dL Normal 6.4-8.2 [facility] Comment on above: Performed By: #### L IPID, CMP #### [facility] [address] [place] [address] Dr. Angus Hernandez Sodium [Moles/Vol] 141 mmol/L Normal 136-145 [facility] Comment on above: Performed By: #### L IPID, CMP #### [facility] [address] [place] [address] Dr. Angus Hernandez Urea nitrogen [Mass/Vol] 16.0 mg/dL Normal 7.0-18.0 [facility] Comment on above: Performed By: #### L IPID, CMP #### [facility] [address] [place] [address] Dr. Angus Hernandez Urea nitrogen/Creatinine [Mass ratio] 13.4 mg/mg Normal [facility] Comment on above: Performed By: #### L IPID, CMP #### [facility] [address] [place] [address] Dr. Angus Hernandez PTH INTACTon 02-04-2022 PTH, Intact 22 pg/mL Normal 15-65 [facility] Comment on above: Performed By: #### P THINT #### [facility] [address] [place] [address] Dr. Angus Hernandez HEMOGRAM AND PLATELon 2021 Hematocrit (Bld) [Volume fraction] 39.5 % Normal 36.0-48.0 [facility] Comment on above: Performed By: #### H H #### [facility] [address] [place] [address] Dr. Angus Hernandez Hemoglobin (Bld) [Mass/Vol] 13.3 g/dL Normal 12.0-16.0 [facility] Comment on above: Performed By: #### H H #### [facility] [address] [place] [address] Dr. Angus Hernandez MCH (RBC) [Entitic mass] 30.4 pg Normal 26.7-34.0 [facility] Comment on above: Performed By: #### H H #### [facility] [address] [address] [address] Angus Hernandez MCHC (RBC) [Mass/Vol] 33.7 g/dL Normal 29.9-35.2 [facility] [facility] Comment on above: Performed By: #### H H #### [facility] [address] [address] [address] Angus Hernandez MCV (RBC) [Entitic vol] 90.2 fL Normal 81.0-99.0 [facility] Comment on above: Performed By: #### H H #### [facility] [address] [address] [address] Angus Hernandez PLT 256 103/ul Normal 150-450 [facility] Comment on above: Performed By: #### H H #### [facility] [address] [place] [address] Dr. Angus Hernandez RBC 4.38 106/ul Normal 4.20-5.40 [facility] Comment on above: Performed By: #### H H #### [facility] [address] [place] [address] Dr. Angus Hernandez WBC 8.7 103/ul Normal 4.0-11.0 [facility] Comment on above: Performed By: #### H H #### [facility] [address] [place] [address] Dr. Angus Hernandez MAGNESIUMon 02-03-2022 Magnesium [Mass/Vol] 2.0 mg/dL Normal 1.6-2.3 [facility] Comment on above: Performed By: #### H GBHCT #### [facility] [address] [place] [address] Dr. Angus Hernandez RENAL FUNCTION PANELon 02-03 Albumin [Mass/Vol] 3.9 g/dL Normal 3.4-5.0 [facility] Comment on above: Performed By: #### H H #### [facility] [address] [place] [address] Dr. Angus Hernandez Calcium [Mass/Vol] 8.8 mg/dL Normal 8.5-10.1 [facility] Comment on above: Performed By: #### H H #### [facility] [address] [address] [address] Angus Hernandez Chloride [Moles/Vol] 104 mmol/L Normal 98-107 [facility] Comment on above: Performed By: #### H H #### [facility] [address] [address] [address] Angus Hernandez CO2 [Moles/Vol] 28.3 mmol/L Normal 22.0-30.0 [facility] Comment on above: Performed By: #### H H #### [facility] [address] [address] [address] Angus Hernandez Creatinine [Mass/Vol] 1.22 mg/dL Critically high 0.52-1.04 [facility] Comment on above: Performed By: #### H H #### [facility] [address] [address] [address] Angus Hernandez EGFR-AF IVORIAN 56 mL/min/1.73m2 Critically low >=60 [facility] Comment on above: Performed By: #### H H #### [facility] [address] [address] [address] Angus Hernandez EGFR-NON AF IVORIAN 46 mL/min/1.73m2 Critically low >=60 [facility] Comment on above: Performed By: #### H H #### [facility] [address] [address] [address] Angus Hernandez Glucose [Mass/Vol] 77 mg/dL Normal 74-106 [facility] Comment on above: Performed By: #### H H #### [facility] [address] [address] [address] Angus Hernandez Phosphate [Mass/Vol] 3.9 mg/dL Normal 2.5-4.5 [facility] Comment on above: Performed By: #### H H #### [facility] [address] [address] [address] Angus Hernandez Potassium [Moles/Vol] 4.3 mmol/L Normal 3.4-5.0 [facility] Comment on above: Performed By: #### H H #### [facility] [address] [address] [address] Angus Hernandez Sodium [Moles/Vol] 140 mmol/L Normal 137-145 [facility] Comment on above: Performed By: #### H H #### [facility] [address] [address] [address] Angus Hernandez Urea nitrogen [Mass/Vol] 22.0 mg/dL Critically high 7.0-18.0 [facility] Comment on above: Performed By: #### H H #### [facility] [address] [address] [address] Angus Hernandez UA RANDOM W/MICROSCOPICon BACTERIA NONE SEEN Normal NONE SEEN [facility] Comment on above: Performed By: #### H GBHCT #### [facility] [address] [place] [address] Dr. Angus Hernandez Bilirubin Ql (U) Negative Normal NEGATIVE [facility] Comment on above: Performed By: #### H GBHCT #### [facility] [address] [place] [address] Dr. Angus Hernandez CAST NONE SEEN Normal NONE SEEN [facility] Comment on above: Performed By: #### H GBHCT #### [facility] [address] [address] [address] Angus Hernandez Clarity (U) CLEAR Normal CLEAR [facility] Comment on above: Performed By: #### H GBHCT #### [facility] [address] [place] [address] Dr. Angus Hernandez Color (U) YELLOW Normal YELLOW [facility] Comment on above: Performed By: #### H GBHCT #### [facility] [address] [place] [address] Dr. Angus Hernandez Crystals LM Nom (Urine sed) NONE SEEN Normal NONE SEEN [facility] Comment on above: Performed By: #### H GBHCT #### [facility] [address] [place] [address] Dr. Angus Hernandez Epithelial cells LM Ql (Urine sed) FEW Abnormal NONE SEEN /RARE [facility] Comment on above: Performed By: #### H GBHCT #### [facility] [address] [address] [address] Angus Hernandez Glucose Ql (U) Negative Normal NEGATIVE [facility] Comment on above: Performed By: #### H GBHCT #### [facility] [address] [address] [address] Angus Hernandez Hemoglobin Ql (U) Negative Normal NEGATIVE [facility] Comment on above: Performed By: #### H GBHCT #### [facility] [address] [address] [address] nAgus Hernandez Ketones Ql (U) Negative Normal NEGATIVE [facility] Comment on above: Performed By: #### H GBHCT #### [facility] [address] [address] [address] Angus Hernandez LEUKOCYTES Negative Normal NEGATIVE [facility] Comment on above: Performed By: #### H GBHCT #### [facility] [address] [address] [address] Angus Hernandez MUCOUS NONE SEEN Normal NONE SEEN [facility] Comment on above: Performed By: #### H GBHCT #### [facility] [address] [address] [address] Angus Hernandez Nitrite Ql (U) Negative Normal NEGATIVE [facility] Comment on above: Performed By: #### H GBHCT #### [facility] [address] [address] [address] Angus Hernandez pH (U) 5.5 [pH] Normal 5-9 [facility] Comment on above: Performed By: #### H GBHCT #### [facility] [address] [address] [address] Angus Hernandez RBC NONE SEEN Abnormal 0-2 [facility] Comment on above: Performed By: #### H GBHCT #### [facility] [address] [place] [address] Dr. Angus Hernandez SPEC GRAVITY >=1.030 Abnormal 1.005-<=1.025 [facility] Comment on above: Performed By: #### H GBHCT #### [facility] [address] [address] [address] Angus Hernandez UA PROTEIN Negative Normal NEGATIVE/ TRACE [facility] Comment on above: Performed By: #### H GBHCT #### [facility] [address] [address] [address] Angus Hernandez Urobilinogen Qn (U) 0.2 {Tara'U}/dL Normal 0.2 - 1. 0 [facility] Comment on above: Performed By: #### H GBHCT #### [facility] [address] [address] [address] Angus Hernandez WBC NONE SEEN Normal NONE SEEN [facility] Comment on above: Performed By: #### H GBHCT #### [facility] [address] [place] [address] Dr. Angus Hernandez URIC ACID SERUMon 02-03-2022 Urate [Mass/Vol] 4.5 mg/dL Normal 2.5-6.2 [facility] Comment on above: Performed By: #### H GBHCT #### [facility] [address] [address] [address] Angus Hernandez URINE T PROTEIN CREAT RATIOo n 02-03-2022 Protein (U) [Mass/Vol] 22.9 mg/dL Critically high <=12.0 [facility] Comment on above: Performed By: #### H GBHCT #### [facility] [address] [address] [address] Angus Hernandez UR PROT CREAT RAT 0.11 Normal [facility] Comment on above: Performed By: #### H GBHCT #### [facility] [address] [address] [address] Angus Hernandez URINE CREAT 217.05 mg/dL Normal 20.00-300.00 [facility] Comment on above: Performed By: #### H GBHCT #### [facility] [address] [place] [address] Dr. Angus Hernandez VITAMIN D 25 OHon 02-03-2022 VIT D 25-OH 112.7 ng/mL Normal [facility] Comment on above: Performed By: #### H GBHCT #### [facility] [address] [place] [address] Dr. Angus Hernandez VIT D RANGES SEE BELOW Normal [facility] Comment on above: Result Comment: <20 ng/mL Vit D deficient 20 - <30 ng/mL Vit D insufficient 30 - 100 ng/mL Vit D sufficient >100 ng/mL Potential Toxicity Performed By: #### H GBHCT #### [facility] [address] [place] [address] Dr. Angus Hernandez Covid-19 PCR (CVDTB)on 12-31 SARS-CoV-2 (COVID-19) RNA MATTHIEU+probe Ql (Unsp spec) Not detected Normal NOT DETECTED [facility] Comment on above: Result Comment: When diagnostic [...] for this test is supported by the [employer] and [employer] Service's declaration that [...] By: #### C VDTBH #### [facility] [address] [place] [address] Dr. Angus Hernandez CBC AUTO DIFFon 01-15-2022 BASO # 0.1 103/ul Normal 0.0-0.1 [facility] Comment on above: Performed By: #### P THINT #### [facility] [address] [place] [address] Dr. Angus Hernandez Basophils/100 WBC (Bld) 0.6 % Normal 0.2-2.0 [facility] Comment on above: Performed By: #### P THINT #### [facility] [address] [place] [address] Dr. Angus Hernandez EO # 0.0 103/ul Normal 0.0-0.7 [facility] Comment on above: Performed By: #### P THINT #### [facility] [address] [place] [address] Dr. Angus Hernandez Eosinophils/100 WBC (Bld) 0.3 % Critically low 0.9-7.0 [facility] Comment on above: Performed By: #### P THINT #### [facility] [address] [place] [address] Dr. Angus Hernandez Erythrocyte distribution width (RBC) [Ratio] 12.6 % Normal 11.0-15.0 [facility] Comment on above: Performed By: #### P THINT #### [facility] [address] [place] [address] Dr. Angus Henrandez Hematocrit (Bld) [Volume fraction] 36.2 % Normal 36.0-48.0 [facility] Comment on above: Performed By: #### P THINT #### [facility] [address] [place] [address] Dr. Angus Hernandez Hemoglobin (Bld) [Mass/Vol] 12.2 g/dL Normal 12.0-16.0 [facility] Comment on above: Performed By: #### P THINT #### [facility] [address] [place] [address] Dr. Angus Hernandez IG # 0.03 10e3/ul Normal 0.00-0.03 [facility] Comment on above: Performed By: #### P THINT #### [facility] [address] [place] [address] Dr. Angus Hernandez IG % 0.3 % Normal 0.0-0.5 [facility] Comment on above: Performed By: #### P THINT #### [facility] [address] [place] [address] Dr. Angus Hernandez LYMPH # 3.5 103/ul Normal 1.2-3.8 [facility] Comment on above: Performed By: #### P THINT #### [facility] [address] [place] [address] Dr. Angus Hernandez Lymphocytes/100 WBC (Bld) 39.9 % Normal 20.5-60.0 [facility] Comment on above: Performed By: #### P THINT #### [facility] [address] [place] [address] Dr. Angus Hernandez MANUAL DIFF REQ NO Normal [facility] Comment on above: Performed By: #### P THINT #### [facility] [address] [place] [address] Dr. Angus Hernandez MCH (RBC) [Entitic mass] 30.3 pg Normal 26.7-34.0 [facility] Comment on above: Performed By: #### P THINT #### [facility] [address] [place] [address] Dr. Angus Hernandez MCHC (RBC) [Mass/Vol] 33.7 g/dL Normal 29.9-35.2 [facility] Comment on above: Performed By: #### P THINT #### [facility] [address] [place] [address] Dr. Angus Hernandez MCV (RBC) [Entitic vol] 90.0 fL Normal 81.0-99.0 [facility] Comment on above: Performed By: #### P THINT #### [facility] [address] [place] [address] Dr. Angus Hernandez MONO # 0.6 103/ul Normal 0.3-0.8 [facility] Comment on above: Performed By: #### P THINT #### [facility] [address] [place] [address] Dr. Angus Hernandez Monocytes/100 WBC (Bld) 7.1 % Normal 1.7-12.0 [facility] Comment on above: Performed By: #### P THINT #### [facility] [address] [place] [address] Dr. Angus Hernandez NEUT # 4.6 103/ul Normal 1.4-6.5 [facility] Comment on above: Performed By: #### P THINT #### [facility] [address] [place] [address] Dr. Angus Hernandez Neutrophils/100 WBC (Bld) 51.8 % Normal 43.0-75.0 [facility] Comment on above: Performed By: #### P THINT #### [facility] [address] [address] [address] Angus Hernandez Platelet mean volume (Bld) [Entitic vol] 10.3 fL Normal 9.5-13.5 [facility] Comment on above: Performed By: #### P THINT #### [facility] [address] [place] [address] Dr. Angus Hernandez PLT 266 103/ul Normal 150-450 [facility] Comment on above: Performed By: #### P THINT #### [facility] [address] [place] [address] Dr. Angus Hernandez RBC 4.02 106/ul Critically low 4.20-5.40 [facility] Comment on above: Performed By: #### P THINT #### [facility] [address] [place] [address] Dr. Angus Hernandez WBC 8.8 103/ul Normal 4.0-11.0 [facility] Comment on above: Performed By: #### P THINT #### [facility] [address] [place] [address] Dr. Angus Hernandez PROF CHEM 8 (BAS METB)on Anion gap [Moles/Vol] 12.6 mmol/L Normal [facility] Comment on above: Performed By: #### H H #### [facility] [address] [place] [address] Dr. Angus Hernandez Calcium [Mass/Vol] 8.6 mg/dL Normal 8.4-10.2 [facility] Comment on above: Performed By: #### H H #### [facility] [address] [place] [address] Dr. Angus Hernandez Chloride [Moles/Vol] 104 mmol/L Normal 98-107 [facility] Comment on above: Performed By: #### H H #### [facility] [address] [address] [address] Angus Hernandez CO2 [Moles/Vol] 28.6 mmol/L Normal 22.0-30.0 [facility] Comment on above: Performed By: #### H H #### [facility] [address] [address] [address] Angus Hernandez Creatinine [Mass/Vol] 1.15 mg/dL Critically high 0.52-1.04 [facility] Comment on above: Performed By: #### H H #### [facility] [address] [address] [address] Angus Hernandez EGFR-AF IVORIAN 60 mL/min/1.73m2 Normal >=60 [facility] Comment on above: Performed By: #### H H #### [facility] [address] [address] [address] Angus Hernandez EGFR-NON AF IVORIAN 49 mL/min/1.73m2 Critically low >=60 [facility] Comment on above: Performed By: #### H H #### [facility] [address] [address] [address] Angus Hernandez Glucose [Mass/Vol] 94 mg/dL Normal 74-106 [facility] Comment on above: Performed By: #### H H #### [facility] [address] [address] [address] Angus Hernandez Potassium [Moles/Vol] 4.2 mmol/L Normal 3.4-5.0 [facility] Comment on above: Performed By: #### H H #### [facility] [address] [place] [address] Dr. Angus Hernandez Sodium [Moles/Vol] 141 mmol/L Normal 137-145 [facility] Comment on above: Performed By: #### H H #### [facility] [address] [address] [address] Angus Hernandez Urea nitrogen [Mass/Vol] 22.0 mg/dL Critically high 7.0-17.0 [facility] Comment on above: Performed By: #### H H #### [facility] [address] [place], [place] [address] Dr. Angus Hernandez Urea nitrogen/Creatinine [Mass ratio] 19.1 mg/mg Normal [facility] Comment on above: Performed By: #### H H #### [facility] [address] [place] [address] [id number] [address] Angus Hernandez Coding Summary.on 11-27-2021 Coding Summary. [id number] Gh 0bWw+PGhlYWQ+LQ3GCGCbX 31qsQXnmW3VU5xRZG8CYZZ RIMUHHU2NFI0ygAB6XNqzD 2VybiAv OhpjnZEgKQ16URy3BIS4eZ xzYIskvM0wcMPeJ3d2KlBx WY88gV86PBczZEEfFxE0My ZpbjsgbWFy U4xiRuYipNPhPwv+PHRhYm xlIHdpZHRoPScxMDAlJyBz wOyaRV0zVg9vSPEpVREmyH xhcHNlOiBj m3myZSIgTOznPD3gaHyaN4 DeqUW9TFNxk2m0Pk03lFL+ GPIlZSH6lKrbAFzke064Gf Ptl4kwWLF0 yPWqKLzkGYN3Q84ay1A8CR OjRVHjFGS3oLH4tT3stJjh afxmU4YhuBDbXeI1BTF6fH JxbQ6rpQdu ijfpcK7jPyh+D31LJV9XTN NALA6NCjc9Y1ItBlttnLI+ FY43LVIrLR67oCMwoLOwj5 lwzFl2ZjAz FNReDJM4dGqfCDkmu7TtLP BxF93vtHIuz3W4HKSjdJwj rJNoUrLuaWC6zK3sAQsidy cqn8spjzms Xpfii2srih86lU65W18eDU qtCHFxCVH7YASsKVWktXzb dt3whQ7jTa5+LUgtc6llr3 aasKv3IpNc JSEomlOvjCwuGHJ5d3GaTa 51S3VbzZudt0JwNnf5mi13 qLBkh4K2vID2DTclGRRcyJ 0sQDdxFtP7 OFMnXbMlsL74mVSvGXwhLt 7nxJniaNywHL7kUGTfsszp HQMouW5fWPLluVNvlOaiAQ 4wNTBpbjtm v994PaYdJBM5ITWkuCQoY1 IxfR1aCsQyATMlIZTsV3Xe mQEoLQbtR737GSjqDrR0VG NmnaPcY6Fa XIPteKmuZkZ3w6I6Ue1Hn6 TbrbujUXW7FJbpOXJoNeU0 UgPkYlZ3G9QaFsv8SUWtjT hbUO5dO7Sx XETmkutzkojapLT9RICzHT JqpW26zXOfNNbcJe6zk8E8 t103RVCtBEGnoN26Jc2tlM ogMTBwdCBU vS6uvreta1ghoremRkWaZJ AtGSh8OOh5GTBerDhzGrVx DEJ6AjV9ABW5vMKieN6rcN yhinuanI8u Oyc+N72nbR1vMGC9LOA7md ocNUGidyZxDC45BS97P9Fb PjwvdGFibGU+PGRpdiBzdH qoHY1nKzQj i1hbe2QcMJmlR5KfEGDmRL prTze4OKNkRHY0iFB3nJ2d KPMnLCmul0I8aNX4U0Khzw Pcmt8fg9pc KYHkDWbzS72xtQNgh7F1RV MplGL6WGVfrMlgRfIfoH52 Oyc+JDVaeKmyi0SpCldvw5 mfs1ggpDa1 PiZsOYNieuWxiFrbSSJ7y0 LwWe07W70qCVwcKKAbKDKh GZDkKQEuxTrwuy6wsR4eJd 8+PGNvbCB3 uGP4zW9aZYMnIyI9LGxbB6 50BhSuiNPkPvnrf0wzb5cb oXl1YpDoNPEnjcNghOnoSB H0f5LwQi87 M57dSYlrXKEaVIJgSDYqTT HywVdpxp8fxE1wNv7+PC9j q6lyil85mN55bLL+PHRkIH H8iDnxKStc UGJnaY3oFGijGdY4RFSuWy DsmQ98xTKfRDkrUk2sfMnw oGhnVD2pJUObihbsu615Gx Mgc1yoJCHb iBFnTJtiCCC5W13no1H9DH RoTHSfWFG1qSN0iH5vbLbd bjogbGVmdDsgdmVydGljYW apZLwfD358 IHRvcDsnPlBhdGllbnQgTm IkZWt2C3MeHbo1LIYixYpg CI7xbEVwIVhkFo0mkFageU hqIL8oAUCl erzck580YuSdf0yyBDBdrG YlDUdtOAU7O04av0Y9ZHHk JCCjBFH3mIN9kO3ikLsavv ogbGVmdDsg kdHbgXjpGYbkIQfkV134OT RvcDsnPkJpcnRoIERhdGU6 LJ71IE50gAGxo0X7gND0T1 BhZGRpbmct ifpjhWB7LOKdVIAjcR92Cz 2quKzpVh9vHXCkDSY3PYDi aTIaZ3OrtS6cRkRdCATtBJ YlU8UnwKOz LOkfS224CUnkXnQ3FTWrnz HxS8YyWKRfyFtxSzS7n0O6 Kd8JQ0O7HK46PI59jNZbr9 Z4nAG6L5Uh FLKehjkngxliwYX2KTLnKU GkqT80Kg8niEyqDu7qWVCm LIH9QVZnyKTxD7RpmA2uQk AjMDAwMDAw X4ZhwLVzFLjpF433OHhxFu S0GBMawrNxM0SqAPRjwIkh TlV1f4C6Ji0DBBz1EZ27YI 16dOOqt5L5 cFA6U0NdQWGluxfwsrarrF P6GCOjTVYalK58It0unIet Zd5yFONdZLZ4CLXvcXGuG4 VmcH2hNiUc OAAmRKLcU9ZncMFrVDdnN5 17IJpoKeW7WRCmcoPlZ9Zf VXDvyHggUtH1g7J0Ha5EMT QtPH86IJB8 xWS6JU48OC86Y5SlHlgzlM FibGU+PHRhYmxlIHdpZHRo JMheIISpSaYgvMqvAM7gSv 9yZGVyLWNv sDgikODzSxJaz1qhMKRfTN pjNK9vkEvfE2NbeWP2YFDu i8h6Cj40I57jR2ZydIT+PG QhrHW4bTK9 jS9dXgXrPsY1YQvhI730Fi RidLHhXotxg7izw9xwdEv9 QwS0NMShzqDlpQotYMB4p5 LhWx82Q24a IHdpZHRoPSIxNSUiIHZhbG btmy8pdP5mXd2+PGNvbCB3 fZU5kY1dMbNnSlP7GSskV6 49InRvcCIv Sjvjm0xug4fixGq3XsTqGF WmhuSphSufUAS4m7EqQq35 Q3AlcEwtc6KfUgb1he78fJ Jpi0X1sRI5 O8BiXNKqeavkePTznHtnCC 2zYYBsncxuSXBppJ4jYJGo S6r4ZtUnHmW3TCznV3Bnpw J6SJFxcSKm AWciGOI1U85zf2F4CYZfYX SbWWI7pKO4zI5yxFvummpj bGVmdDsgdmVydGljYWwtYW exH497XWLo aPmpAXVlsM7aINMuwITmqC qzCA2bLXZuwfreDpDXPJMW BSENW0y2V4CiSyp7EAMqyY iaMP7kfJGp ZJpoLu8zpSbvbXnkYZ1jKU CclhihTNFwgJ1aWOJnzMKy uVnrMT8zPFXfavbln887Ej LgZTH0IQFl uGZoE7HveF8yEwSpWZYbJJ FbU4VchBUjMGqgJ093PVmr WyM9HYFwqzClJ6AsSVBxoT syRvR1e7F5 Jp0lBt4sVG9iJRW0QE99ZQ 69bADdu4T6lLB5C1FpDCHu iudoyagruGC5BNUeVBYjvE 47cGFkZGlu Eh8ol9C3q067HUWjNLFkgA 93Ls4weJlaSCMdkDTUwY5t jrjct1uypxxcZfWpDVMaKH h7ZBc5RSLb iLpdIwSnWZV1DlD4YRZ9hR EdcQ5ueMecxrptnQ8qBdh+ YNQjVXTpksJ3V0CbOqw3OD VsnXdrGC0z mKZyZUepOh0ljJftoJscSD 3fKIYgbgifBZUdmP5wLXPr yKBmgXftEI1zCNLkhsfdx7 20AdFvBYJ1 MWOgnJGpR0AzhD4bBkNoNA CkTTOoD2BaoVWiGDgiX117 QIhtVaV5FOTikxBjG5KxEI FsaWduOiB0 r4Q8Wi3COS1gdYE8K3XpCl g3MWVdjIiaQG3qfCFwMGtk Vj7bnErbhMkwYZ7nVMHbpb iyDPVmbI9u HGKxeOEpfZzpHM5eBLSngk chv984UqYiUMX1BPJahHAt B9OugJ8uVmYdGNZoVWDkQ2 RleHQtYWxp M183LFtzNpL6QTCucsReM1 YnJRLasLzmPeB3p2V9Sc7D KWfpWA5ipmSnUT0ghgE4J0 RkPjwvdHI+ DR16DTRcGY89gFAhtJGjz8 gozVr3XuCxFHNqZVO9kHuc WRvyq4DoCZUeV42dvSGma0 W1CIXgyNkc zBCoCzQetHV2oJ7sPLduuh ujt3wnnzixCiwfa2nsax62 gW49K42eXKpcTLDkHAZoPY UiIHZhbGln jo2fcL4jMu2+PDPzgCZ2rD V7vJ1wQzMtYcY6ALjdN563 OvMudXJzLsmnz2gmn6oabO h8HiHsKHRb uxRqyKqzXQR1r0LcVl42V8 9sIHdpZHRoPSIyMCUiIHZh aLnfhm3arG0uGi2+PC9jb2 pjbg55eZ97 dHI+SVIdALH7yDsaYZixDH KknW4rMZtbGuA0ECHoEhKc pB67jJZbIAhyFo3wpLwzoJ xzAW7bDMKg dyiee863FzVee5mcWXTozL VnNQrjYBY5B25ef3P4CAZg QLYtWKC6vZN4eI1rySwqst ogbGVmdDsg xoPjmVmjZNbbIMblF057AW PemWmvLvRlaKDoA7hreyZX ZQ3jGdujgBG+DMCcGAC6pO xlPSdwYWRk mT2hKZQxD4s9PcGvGsT2SR lzV4TegkM1ALEgsUMkWKCq mCZYvT3etaoeo2pojcacOu AwMDAwMDt0 COu4ERLdjXwmLfRxTFW7Qo Q8UNL6aAPpvZ3tlBeiwlch fM5tYak+RklOOjwvdGQ+PH FgROQ8xAtm XAsoJLQcjY3mABPqP6z5Ao YvQyA2VKbmF3QrrfG5LNYg lEIlYXOlnVUBkF6lhxvxj0 xvcjogIzAw UOElUTa4HXj4MWNtaPfiJf JpSKO9XbM6ADE4oREpjU8q yEyjpewenT6nDrp+TVJOOj wvdGQ+PHRk TFN9rNeoUXybYMQpvJ5vPM KmB3b3OtUmFwB6EYkuN8Xb fxB3CGPcmJRpVTKkdWKOyA 3qkhqsg3eh uquuTcJxXHLpQCv5RDt6NS ZagCdzLhLaEOM1EjG3XVR0 pHAmdA0wtUxdnjkyuY6tOh c+GER5NXY2 OR74OF04A2XfHidiaGNxbA U+PHRhYmxlIHdpZHRoPScx VMFzKeJiaDzjXG4sFz0dYC VyLWNvbGxh cHNl (more content not included)... Normal [facility] Consent for Treatmenton 09-02 Consent for Treatment [id number] 1102 [id number]#1. 00CD:127 Normal [facility] Office/Clinic Note-Physician on 09-23-2021 Office/Clinic Note-Physician [id number]#1.0 0CD:127 Normal [facility] Patient Correspondenceon Patient Correspondence [id number]#1.0 0CD:127 Normal [facility] Patient History Officeon Patient History Office [id number]#1.0 0CD:127 Normal [facility] Coding Summary.on 09-12-2021 Coding Summary. CD:[id number]:[id number] Gh 0bWw+PGhlYWQ+LH1YFFElI 16vgRVqiZ2ZS8kIFX7VFRL CJKSKNN6GRD2meHS3ODxbW 2VybiAv SgjjsXJeLA96FNu1HFE3eM ypBWsghW3gpWQqL4d9TkIe JT59sM77YQsuMYHnGjJ7Gk ZpbjsgbWFy A0agEmOpiHLrAcw+PHRhYm xlIHdpZHRoPScxMDAlJyBz mHloEM1xQj9wMRJbCZScpP xhcHNlOiBj d4avAISnOVfzFF3hoGodL8 PjnYA7KFLjr2x5Jv73yXD+ BSPsNTT6jYllAUebo856Js Fvk3awKKR6 pLJfDQwqNRG0L08hd8H6RI KoDSSpYAB2hIF4vB1tfJoq xqocC5BegTWfKbT0YNL0bG FfpK6glWct owuclS2pFkb+X38ROS1QSG LQSN6COfe8Q0StDrxnjKI+ UL56ZHTnJM63gOVboJOto3 cafKy9HeAh WMKzCHJ4xQxlNYzqa6NiTZ UvG36vzYHdc5M7CCMxaJah jLIpJcVrgQH4nM2uNNnbww cow7bhiqew Neint8cmga38xF05J71aFS yjZNLzFRF7XXAiLBBzkGcj gq8utS7kWp0+JSzmy1tju6 lqyJq2QaFe AFXofrOabHumKGI2b9IzTs 06B6EmfRnfl8XmPod0eb43 zJJlx8K7yOU1TJxyYANxvF 1dTUtvEsH8 VOCmDkPamH98zQApHRmsZc 1bcPodkTkmNX2dFILfsuve ZTKtwF6oIPLcsAVgaWdiSC 4wNTBpbjtm v939KgCrSTE7GCTabCYbO4 WobQ5yRdBtLOZyNCWvN3Mj gGYgQUyqT390QZlvIsV2AY FugfGmP4Ni ODNzfPqiUxR5s5I9Oj5Bu9 CxpecaWLM3TPvvYEEfYzCs OuBbVcW2H2HmGjy2JYOlbB wtXL6gS4Lr ZBDamybssbuhdWZ4QHLpGQ SqjT70iMSiMJepYf8lg7Z9 s594GGNoMKWzqB64Zh8odW ogMTBwdCBU qK9ersffg7cfxaveXbWhBS TvQPl0KLs4PPSsiVzbAiUe FOQ3NgQ0MRR1yBVxqB5cyN ekbzmneH0g Oyc+L09uzO9vSGA5PHL0wi tqXBVkgrMvFR95CL36M2Xk PjwvdGFibGU+PGRpdiBzdH wdGJ1wEpZh f8acg5ZdLGdpO1PfFIJhIC nfMsl5NRYiXSP9xLC7rJ3q NKYsIUizf6E2uIM5U6Rbpn Anyr4nn3ix NXQmVYfmI42fuZCff2Z9LT GriRY4KXHcmNqqSnVfcH40 Oyc+UFZvgGwok9GpOrpxx2 twa3wcpMv9 FxFrYRSvpbAoeDvgUSA5b2 SpJc11J43fGTowVABuYUGe WYEdDRCysHjhbl4yaS6wLp 8+PGNvbCB3 fWF3vE0jVXAjGuD6WZjvA2 08VzHekTYsRefni9ozy2rf lUz9SdZdJEXwfuCuuRrfKS R8q7TmRm57 Q18vIJvkSWCmOVMmVTMqKM KbxUowoa6moU4cYr4+PC9j i8algp60yA71sDN+PHRkIH F3eItgMSnu QELigT3hYLlsJvV0ZSAuQp KtuO24gLSdJPqsPy6eqPzc pMubVA2pWQMzfuntb688Wa Udl0ysNVJs lXRkKHxhQOR4T28vf2N6KP JtFITxKQM6dKA2lU0hfSic bjogbGVmdDsgdmVydGljYW rjBVjeR707 IHRvcDsnPlBhdGllbnQgTm RfEKw1A4VkCvc9RTQiyGzy ZZ4lyXUpQJviLx2qjCmsoB zyGZ5pXTSh tzjln309WjYow3enOBFwkR QkPNyxCJB3R24us8N8FKFl RKQuHYS7pRS7dW5vjTfxft ogbGVmdDsg ccFxgVfjHTvdNXuyF392KZ RvcDsnPkJpcnRoIERhdGU6 DE09TQ71zYAny0I8aZQ7C4 BhZGRpbmct asmzrWZ7GBTjQXUkaD75Qn 5ncRqvEu6sEQNpMLW0XMJv jDGpA0HrcF5bOzZaOVFiNB BvU2FakELh QPnmE445IPfrMpR8MFTkvt OsF8VjCZUxlSsfRkM4l5P2 Lx2XS3D4OX51XB91rIBub8 C5vVF1I9Or NMBxdurmewxmsSP9BWIfSB PhpI00Kr7xdKfdCs5zYWNu HIE3UVZzrFArL7FulK8nEm AjMDAwMDAw K7NpcKOfPYbzV168QIarVg B0LJFdloNyA0XkSEGkfMku EcG7m7T2Oc9OJQg3QL71IW 82yRGvm5S2 wIP2I4TlPEPehavujsqhfT J9MEHpFWTksS01Wj3ciTbz Hd6rHBEeLPS8HDRzsYThB9 XptX1xWkJo AZFsWIZpL2GiuJXfLUhrI8 89GLanYkO8UHVwydQvO0Do FURhmHtoNqP1f1M3Wq7JXD QeCF31FCC6 nIX6YF39EN06E3NiCwrihC FibGU+PHRhYmxlIHdpZHRo BMxvLWInZoRpnOxdWP3vRu 9yZGVyLWNv iIptbIXdAwHxm7duBPBrMQ mgID4urHszN3OkxAX1OJUk r7l6Ui04Q84jR8XjkNF+PG EcsPD1pMC9 uL1jOxYpMaQ6NNeiG108Yz HzaRMgBpnbu8dzz6lyhOk4 IaM6NCBeyaSlaPqqJVQ6r4 WuNk02O06l IHdpZHRoPSIxNSUiIHZhbG zvcq5vkT1cXg7+PGNvbCB3 sNH7sX5wUrTnMyO5VOwxU8 49InRvcCIv Kuvdr7rzp0ujnQx9AmSlJT CenmOvhFtjKIH6y0NmXi60 G5DmqKcio2NaWge5sx20wI Ocf7H7kYR6 Z6YaAGXfdusnhMXqwNoyWY 2mEQLdeomrTOFgkL4xXUHv H1y1JxGlGkW9CBunS0Cjje V6CTRzhRDr FCurJIE1F02rz6H4KWFrFQ YvKEM6uLM8yZ8yiPhnjmiv bGVmdDsgdmVydGljYWwtYW tvB061GWSo nKfiTGYtkT7tCSGuoBJlnX thVI1cYLOijrpcNnPUXPCS FMTAI4q9H3YgEnt7SHTenR bjZR4ylOBn HCqtDx5sbSvtlJbeQY5dXZ SxzihjYVKumS4aPJVorSIm rSueUI1zZCUirsvde546Of JuXQW8VSPk vABuE4UukE5yMjFpDHCpND EmN1HtqMJgSCnuF307KWqb VmX5FJHzifGjZ6JcTADmfR lxPaB8r9C0 Vd2nXt7bYO4eQOB0DB98LS 66yPHuv0L0wSI3L9DuQUDp zodribulbBC9OBAjJALijR 47cGFkZGlu Pz7hh6T7a756GDArWWKvzX 52Go8tqSfgMOYpqUQFtV8y meqzi0iexrpdPwQmKXCeNX f0ZWy7TVFk rIwwUhUyXOU9RcK3BVQ6mK IpdR7luRykwizeyD0ySnf+ ELYwKIAzxmH9H8XiYeu9TQ CsuWarIK6p hFBzOTzgOu0jxHlaoIczEY 3eYEStidqcCYRgeO3tGNMz aYRbiZhmWS3aKSRoaamjq3 90OxGdGBM7 KXMutWXgO7IbuU2zQfXzMC QrARAoV2TvgWIhDSeyC825 ZZmdDqP7FMIzzgGlE7WeRC FsaWduOiB0 d4C8Je3RGZ5ssLS8I7PdUw w2NPOjqVsiDO7zlUDpSMjy Dd0mdTeheAjiSQ6iDMReam gvJELdjB8w ZZHeoKJlvKqeAA4fKYMrdq fal755KiPcQPB4CPZfkTGz Z9WuzJ1vPpKnGTWwXKJlI1 RleHQtYWxp Z176WMoePvE3WHDnuiEuB0 PhCACgpAfnXxZ2i6Q1Ck6Y DNmoZM1rjjVaHT3qvbA7L1 RkPjwvdHI+ HO92PVLvQX19xNGwhAGda3 qsuXx2NjQyEBGePLB9kSta TLvst2KeDRLlB43adCYwe4 P8IFZuvRrg fPPzQhZhhYD3dE1nXCaepa imm0hyayaxBciqb2cfrs29 lJ45N95bQXktPKHxLTGrRB UiIHZhbGln da3muN0zXa9+EDYakTH0mO L2vA0xQgFsSlV8VKdhD604 XyAtjBFlZiyia0rrn2bbrW f6CoYhWPZu rcMocIvrXKV0k1JeXg74P5 9sIHdpZHRoPSIyMCUiIHZh uXsnpj3xoY8eEs9+PC9jb2 gjfv00yN18 dHI+IAHbBXF2vAxpDXwxNP JsvQ6iMSitUkE4YATgDuPf cI96gJQfRInjLh8vyLnaeH vsDC5tQGFk gzcfu534XeKko3ckMWOjiH CwOTyiJOS9E63fq1A7LNCw SHBmONX9gFF8vV2obTvejm ogbGVmdDsg rrEkkXzoHHazPGamG781XM VcxEozKuJsfVBgW6ffuyRG WS3tLaywzIZ+BKCqQVV8nE xlPSdwYWRk bR8uXDYbC7j9HfCrErE5VZ niU1MynlB9VHMisBWhRBFn bLHHeZ4uqholn6gfzylcAg AwMDAwMDt0 GVp3MKQoeNyvJzWoSAN1Xg P8AKT2pOYbcQ7rkVmuuaok aS6aZtz+RklOOjwvdGQ+PH XkAAV6hQxw FOouQZZrnR1mKBNaL0q6Fx GmVbF1SWbfE3YnadI8GKGe wEDoBZIemBNRjH2iupsua7 xvcjogIzAw BXMqCLm7ZPa0XGWppUglOi DeBLT6FqJ4QJD3yXDezR7k cCcmvtbuzG7xCwz+TVJOOj wvdGQ+PHRk OPW8kRfpTImaLFBiyS0xFT XcG3y7GdVmOrC4OChwT4Sn sfL2TZOlzFVpIVPccKJTrO 2lturry5jk neonIiJqMUNfBOo4GGh3OE AbhGdjHsLlBCV0DaQ6TJZ3 tEAvqU4etKzvzlecfK2oDl c+XPD6JJL2 WY44AA49N0RmNdwdoGJaiH U+PHRhYmxlIHdpZHRoPScx RKQuZoUzhIfuZK3wCg6wAG VyLWNvbGxh cHNl (more content not included)... Normal [facility] Coding Summary.on 09-03-2021 Coding Summary. CD:[id number]:[id number] Gh 0bWw+PGhlYWQ+ZH6NJKVwS 59hvQXajS1YZ3qFSG0MDWA VSVUBMR2DXW1llBR5CNhyR 2VybiAv GyufoZIoDV23HUl2NKJ8wC rgIVpspC5stFLwB3c3LiHm QL57mE01DEauZZEiZkA0Sv ZpbjsgbWFy C0oyZzNbaAYgCep+PHRhYm xlIHdpZHRoPScxMDAlJyBz hFpmIM5jYk5wMMDvIXSfmX xhcHNlOiBj r3qzAPQuBTimCB6noEhgB6 UgcRZ5FZTrj1i7Zp02jQD+ VRIqGXT2cPxkCIrzj037Kg Ult1tuBYL3 fKIlWXxnTCK7N32dg1O1OR ViLKPoVBL2nJM7eN6cjRbu bjerX0VpuALxXhP4LLC2hV DxmO0nsVbk limyqH3cJom+D69YRX0PYR JFZL6YQal6N6OoUwicxOB+ TO42UCLcOQ79jBJueTWxp0 xksPk5KzWw JMAuDBM9vBzfSQcsy8FiBG HiM30naPKyl1Y5FEHdcOco mKGkAfWzdJX0wB0zRJbyax pcd6pwuhms Lqxol0vpwa08uN09U16sBN zsJBVkDEP2JCWkTJQrjDom pf2rdZ7yIm9+ELedd7rtm2 fqqLw0EkIp YUHglfRjdOaqIOV6p2MsEc 58C5BaqXbcv3InCfk1hi19 tPDhd7F1mGH9CVfcOFUsvV 1bRNfpMzJ6 WCRsQxEmrS80bEKuJMwxMc 6leIcdnTdxYC8eZLDwzymf XUVnmE8oMFKylTUmwGvkYB 4wNTBpbjtm o829TqKzLRG3SJFgeIQeL1 XanI2bJsJpNZEvZWGdJ7Pk hJGkNQkqB156UQfoPpG3OP TvdgYcD1Lp STCqrFozPfP1q9J6Ht0Si0 DefatdEBV6GJhzQPHiSrBh GpZmRiK0L4XjKle2YVXdyW gbAV3rY5Yi GRYlczwkjrcbhBI5OJWsXW GwaQ22oBBgXJpeUr0hb0K4 r448IPPzOKZerG11Dn3rwI ogMTBwdCBU aQ8yudljs0pnzcznAaHeIS QjDPr3WSf2EXFbeDbqUwYe ZLL3FbL3FUF7kQXtxR2vwE ektxbpdJ1e Oyc+F28doH2pFTF1IKB7oq mvGEUlmlJqDV51IW56Q5Te PjwvdGFibGU+PGRpdiBzdH qjUW7jHbKz c3sdq2EtJRdqL1GuSTWwJD eiEfk1GRZlARK0xFE7bH1g DPFaZOdab3F9sGL8V6Bemq Dczk8cd0xr UUZgTPoiL24phPAfy0O0FF ScbTZ3JPKluWrrDiSytD58 Oyc+ZYKnhKzhc9CgLnyao9 gan2safUd5 AsUuXJBbndDubEyeUGH8m3 QhBg32Z68cSFtsUMFwSXJi RZViVRPkbMnzcx1sgI6zLv 8+PGNvbCB3 oHA4oS2rHZAmOuH7GIqdC9 64ZkHtwYBnGujjv2bqp6qp mJm4KmUhNZJeycKvjVvpGI C0z7IlPm95 U55pNLojZYRrSTDvOKTxFC ElhGdnpl0biF0sWi2+PC9j b9gluf60qU15pKU+PHRkIH J6pGhkTOjm UIEvdL3lTQobIpQ1BRLnDn QrzI98nJWcAFduQe9gyRlu jLlcRD1sCHBhdfnnl599Hf Vye2fwXMUr hFOtMSywQHZ0Y80ug4N6JA EbBAKvUKL8gOZ4xR0rcHou bjogbGVmdDsgdmVydGljYW alZJvpV162 IHRvcDsnPlBhdGllbnQgTm SjXQf0V6CnJja3LTOndOrf HY6pcPIhESatJj7lyBhpgS hkSF9jSVQe utsgl842OjXut7bvNFSatB QpBSaeQDA9D15sr7R6PVOj APVjRJW8rDA0cJ8rrKmapr ogbGVmdDsg bwCsyZjoMCotVFmsT630BI RvcDsnPkJpcnRoIERhdGU6 QV04NX44lAFdg2T6oCF1S5 BhZGRpbmct ttutoMY0DHHpYSQhxZ22Qm 5hzFfcYv6uTGOsMZO4UKSv gOAlH2UljZ1hYtOkOMHuEO AeM3MnbEXi HDziW402KVnuSqY5RXPnoa FiZ3RwRJHmaZukQrI7p5D8 Yr0FR2U8GH49GT91lJHpx2 T2oHV8R9Op NRNgfqqljkxakXJ2KTPbJA CgiV32Oq8fuSfbXr3sDXCv HCQ5YOIrvWFfU8XfwP3eDx AjMDAwMDAw X1QqaJSuPGhjS332XQfkAe O0EZOddgLgX1ZtUNCybZoc HwO2f6F0Kp3OMUl7YS25BV 89cOCwi4N9 aQN4U5BgYTTggmsqrpjxrA P8VFRcNTHhuE33Ra1xbBju Bc5xKMGpDJA0YAUfdBRiH7 WklL5gOxDb GEZgBOInL9LubZDfLIwxH1 13LIfwVfT2EBBudkFuI8Ej FGKuwSxeIkN8p2E0Hm8JUZ TnCF29UEI4 cPU4OE81IY11K3JlBidlnO FibGU+PHRhYmxlIHdpZHRo LAouBQBdEwQtcStpID3vCq 9yZGVyLWNv iKappOLwRwFwh4kzISCaGM wmLZ0pxCdtN2GbcJW2VLUw y2j9Pi24R12dE8GyjUW+PG PjaCU7dOK4 uA5bFkWuYmP0TDknB778Ds LpdVXeZqwll6exb3rahPc3 GhK5SCGnndKbdFczWBY2w2 XyEf26R78o IHdpZHRoPSIxNSUiIHZhbG tlcj9qaM3cHo8+PGNvbCB3 iLC7jU0bSoHlIhR8RHstS6 49InRvcCIv Yoosr3nsy4mknRo5WnDaAR HkuuBiqRocURY5i4PfLu59 R5DmmPtuo8SvDfy7pk50gH Epo8P9qNR6 K6PtGEXthcbzaWOwjTyaZS 8tTRLdldfcAZVokX9lUNUs Y1c0JtSuHhQ2KXcbL6Vycf R9ORPujBTp TYxoCJA1S78py8Q6VCCzDF BcRPN5zZA6jU7ylKautzml bGVmdDsgdmVydGljYWwtYW ueL835NRAu cIakHDMpyH9pWJVbrFWxsB brFB3cCBHekhmjIjTGHGJJ ZYLYU6c4O4RdLcd5ONZawE zuEG8yfGGz SPsgAs6pjNvcuNyfUK4qFB IoxbqfSGJoaN8mLIDnqMFh pXzwFC3vOGSdbdgeg580Ea DqXRW5NZOy hFMtF2HiiC5zIyVdVJEoHZ VnS9DymOPoNBfwK758XDer YeO4LVNzmvUrQ7HkUDUtgF crEoE4f4F8 Nv4uJt4hEU7aEQU9TK71RM 79sYIzo6S6iGY1C9BzDFQd pteiemslaBW7PNPaVZOoyT 47cGFkZGlu Ux8mg0L0x092QJMfKVSayT 69Kg3xsYdsZNGqkLNRfC9u tqbvf7akngwuWzWnPODzYZ g2QLs8KOSy xAhmJuOeHIT5YvA1YBG3sF JtjH3rvGkosuuldR5aCmf+ BDWuLBDyniV2P1HcDmq1ED NtrVijME4t tEZyBBlbJc3elCrfrZnnVK 1lWKEldpzjLZEhlY2rOVOs aBVclWecPR8cSONjycspj2 58DmYcBRZ7 JWRfgVDzS2RpvO9bFaUbAL MaOGJdB5VfjZQzNMxgQ350 GRsbQqH1TXApmzWrB4EiHN FsaWduOiB0 x7S7Kp2PMA4khMG2J9FwWe c1JBJkoRcnJA6tyLAvUIyn In2edOixqMslKF6kEYLwst vkXHMqjB0g UFSnlOThkYluPE2kIBZkez osl135RkZmZSL1GPHesXYc Z4KgdS4sWkUkTKFmRUKnK1 RleHQtYWxp V824IDcbSrG7DJDbsaLgQ6 YwWTNmoQzqYcM4x4J9Pg2G QCulFD5iuvOqWT4jzvU1B0 RkPjwvdHI+ AO30RHSaJN71bZAwiUSac4 bnrFf4TmMwMPEbAZJ1tDyl YGvmf6WgDTTbK30rcOZmy9 K4CIPqeWlz oSPeXtZebYP7zT3yKErmtu xmv5bsnkpkIyibj8vgsv71 xO88R21uAGqeKBUtZPDhRG UiIHZhbGln vx3iyO7gIs5+ITPnyYO1uN T5bN9eKkRxUcS2UTubH824 UqIcqWMqQzmkp6sin5viyL k4QyEzVGWg tvIlxDbbMXI0x9ZeHw90W9 9sIHdpZHRoPSIyMCUiIHZh kVfivl5rwL9fNb2+PC9jb2 xkss64fZ53 dHI+TKWjWPZ7mIllAZinHT SebK8xRKwdDkS5JOHaAiLg rH74xEMlMOqfTg1zfVcuhW ehME8qXINe keqrg136UmOqk3xbHPUxoL StVQbuCVH0J93hr2N4MFOy PVLlLAD0wGC9iM4zcGmzfx ogbGVmdDsg hqUucUajYHqxYVzeH477SP VriPgmEtRzjUNxT5jdfeCY KC6tJlhomET+YDTcKOP0mK xlPSdwYWRk cM1hACGvY6m1GgLfAwE7FC ytZ3FmqzS4NWIcjLJiCUSb nPOMlG7oqkkxt3gnsdaoWc AwMDAwMDt0 EXk8BBEtvDitEsKsFOJ2De D7PEC4aVVtsT5psBxetftn yG0oUne+RklOOjwvdGQ+PH XpHVT9gNdm XUoqPSQpkJ9iVKRlX1w7In GuQtH6UQfoT7MsuiU7VXQm iABdCRCbeDAZmO8hpykri8 xvcjogIzAw QVMvFEd8MJp3XTLzyXkgSt GxSSP7EbH9FWH3kLKjdX3u gWdhaqkfdX7eMnf+TVJOOj wvdGQ+PHRk IJB4tAjcNZicJLBbrV1hFC FlV9n8QnHuKuJ2BTfnB8Dl zfG4HAQtpEUsRKEzmJSXmH 5vqdgfm1gk osslEqUpEIDgHBp0OAk5XN KlmPdjYiAyKTR1WdR9EOW1 qOEcoB0xkFqmocufyZ0sDw c+JXJ7DON2 IW01VC10W5RtNltkoKOcnR U+PHRhYmxlIHdpZHRoPScx IYKxMnFrcUfnIA4oLy1pBQ VyLWNvbGxh cHNl (more content not included)... [facility] Consent for Procedure/Surger yon 09-02-2021 Consent for Procedure/Surgery [id number]#1.0 0CD:127 [facility] Consent for Treatmenton Consent for Treatment [id number] [id number]#1. 00CD:127 [facility] Discharge Instructionson Discharge Instructions [id number]#1.0 0CD:127 [facility] IntraOperative Documentson 1 11-02-2020 IntraOperative Documents [id number]#1.0 0CD:127 [facility] Main OR Intraoperative Recor don 09-02-2021 Main OR Intraoperative Record IntraOp Document Type FTPM Summary Primary Physician: Cole Hidalgo MD Finalized Date/Time: 09/02/21 09:26:26 Pt. Name: MYRTLE JONES/Sex: 1965 Female Med Rec #: [id number] Physician: Cole Hidalgo MD Financial #: [id number] Pt. Type: P Room/Bed: / Admit/Disch: 09/02/21 08:07:50 - Institution: Case Times FTPM Entry 1 Patient Times In Room 09/02/21 09:21:00 Out Room 09/02/21 09:26:00 Procedure Times Start 09/02/21 09:24:00 Stop 09/02/21 09:25:00 Anesthesia Times Last Modified By: Emerald Ward RN 09/02/21 09:26:11 Case Attendance FTPM Entry 1 Entry 2 Entry 3 Case Attendee Gwen CANNON, Cole Ward RN, Emerald Burns RT. R, Ralph L Role Performed Surgeon - Primary Wheel Alignment Mechanic - Primary Branch Account Manager Time In 09/02/21 09:21:00 09/02/21 09:21:00 09/02/21 09:21:00 Time Out 09/02/21 09:26:00 09/02/21 09:26:00 09/02/21 09:26:00 Procedure LUMBAR EPIDURAL STEROID LUMBAR EPIDURAL STEROID LUMBAR EPIDURAL STEROID INJECTION(.) INJECTION(.) INJECTION(.) Comments Last Modified By: Sylvia LIZ, Emerald Ward RN, Emerald Ward RN, Emerald Moreno 09/02/21 09:26:12 09/02/21 09:26:12 09/02/21 09:26:12 Entry 4 Entry 5 Case Attendee Glenn LIZ, Evelyne Calle RN, Cole Amrstrong Role Performed Staff - Other Scrub - Primary Time In 09/02/21 09:21:00 09/02/21 09:21:00 Time Out 09/02/21 09:26:00 09/02/21 09:26:00 Procedure LUMBAR EPIDURAL STEROID LUMBAR EPIDURAL STEROID INJECTION(.) INJECTION(.) Comments Last Modified By: Sylvia LIZ, Emerald Ward RN, Emerald Moreno 09/02/21 09:26:12 09/02/21 09:26:12 Perioperative Protocols FTPM [...] X-ray Applicable) PreOp Antibiotic No Time Out Sylvia LIZ, Emerald Moreno, Joel Calle RN, Cole Armstrong, Gwen CANNON, Glenn Olson RN, Grant Sánchez RTMarissa R, Ralph L Time Out Complete 09/02/21 09:22:00 Outcomes Met? [...] and tissue Entry 1 Skin Integrity Intact, [place], Warm, and Skin Abnormality No Dry Outcomes [...] Large, Safe (more content not included)... Normal [facility] Main OR Preoperative Recordo n 09-02-2021 Main OR Preoperative Record Holding Area Document Type FTPM Summary Primary Physician: Cole Hidalgo MD Finalized Date/Time: 09/02/21 08:30:21 Pt. Name: SORAYA MYRTLELois Rodas/Sex: 1965 Female Med Rec #: [id number] Physician: Cole Hidalgo MD Financial #: [id number] Pt. Type: P Room/Bed: / Admit/Disch: 09/02/21 [...] Eve Torres RN Document Signatures Signed By: Eve Torres RN 09/02/21 08:30 Normal [facility] Operative Reporton Operative Report Patient: MYRTLE JONES [...] 110 mmHg SpO2 100 % . Normal [facility] Comment on above: Result Comment: Elec tronically Signed By: Gwen CANNON, Cole Anaya\.br\Date and Time Signed: 09/02/21 09:26 EDT Patient Correspondenceon Patient Correspondence [id number]#1. 00CD:127 Normal [facility] Insurance Correspondence Off iceon 08-22-2021 Insurance Correspondence Office [id number]#1.00 CD:127 Normal [facility] Consent for Treatmenton 08-01 Consent for Treatment [id number]#1.0 0CD:127 Normal [facility] HIPAA Forms Officeon 021 HIPAA Forms Office [id number]#1. 00CD:127 Normal [facility] Legal Correspondence Officeo n 08-18-2021 Legal Correspondence Office [id number]#1. 00CD:127 Normal [facility] Legal Correspondence Office [id number]#1. 00CD:127 Normal [facility] Office/Clinic Note-Physician on 08-18-2021 Office/Clinic Note-Physician [id number]#1. 00CD:127 Normal [facility] Patient Correspondenceon Patient Correspondence [id number]#1. 00CD:127 Normal [facility] Patient Correspondence [id number]#1. 00CD:127 Normal [facility] Patient Correspondence [id number]#1. 00CD:127 Normal [facility] Patient Correspondence [id number]#1. 00CD:127 Normal [facility] Patient Correspondence [id number]#1. 00CD:127 Normal [facility] Patient History Officeon Patient History Office [id number]#1. 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 00CD:127 Normal [facility] Referrals Officeon Referrals Office [id number]#1. 00CD:127 Normal [facility] Vital Signs Date Time Vital Sign Value Performing Clinician Facility 03-29-2024 16:01-0400 Body height 170.2 cm Simona Carlson APRN.CNP Work Phone: [facility] 03-29-2024 16:01-0400 Body mass index (BMI) [Ratio] 25.41 kg/m2 Simona Carlson APRN.CNP Work Phone: [facility] 03-29-2024 16:01-0400 Body weight 73.6 kg Simona Carlson APRN.INFORMATICS NURSE Work Phone: [facility] 03-29-2024 16:01-0400 Diastolic blood pressure 68 mm[Hg] Simona Carlson APRN.INFORMATICS NURSE Work Phone: [facility] 03-29-2024 16:01-0400 Heart rate 67 /min Simona Carlson APRN.CNP Work Phone: [facility] 03-29-2024 16:01-0400 Systolic blood pressure 142 mm[Hg] Simona Carlson APRN.CNP Work Phone: [facility] 09-13-2023 14:40-0500 Body height 170.18 cm Anand Garcia Other [employer] Other 09-13-2023 14:40-0500 Body mass index (BMI) [Ratio] 28.97 kg/m2 Anand Kendell Other [employer] Other 09-13-2023 14:40-0500 Body temperature 98.1 [degF] Anand Garcia Other [employer] Other 09-13-2023 14:40-0500 Body weight 83.92 kg Anand Kendell Other [employer] Other 09-13-2023 14:40-0500 Diastolic blood pressure 86 mm[Hg] Anand Garcia Other [employer] Other 09-13-2023 14:40-0500 Respiratory rate 18 /min Anand Garcia Other [employer] Other 09-13-2023 14:40-0500 SaO2% (BldA) [Mass fraction] 97 % Anand Garcia Other [employer] Other 09-13-2023 14:40-0500 Systolic blood pressure 126 mm[Hg] Anand Kendell Other [employer] Other 06-09-2023 14:40-0400 Body height 170.18 cm Anand Garcia Other [employer] Other 06-09-2023 14:40-0400 Body mass index (BMI) [Ratio] 28.5 kg/m2 Anand Kendell Other [employer] Other 06-09-2023 14:40-0400 Body temperature 98.3 [degF] Anand Garcia Other [employer] Other 06-09-2023 14:40-0400 Body weight 82.56 kg Anand Garcia Other [employer] Other 06-09-2023 14:40-0400 Diastolic blood pressure 86 mm[Hg] Anand Garcia Other [employer] Other 06-09-2023 14:40-0400 Respiratory rate 18 /min Anand Garcia Other [employer] Other 06-09-2023 14:40-0400 SaO2% (BldA) [Mass fraction] 98 % Anand Garcia Other [employer] Other 06-09-2023 14:40-0400 Systolic blood pressure 138 mm[Hg] Anand Garcia Other [employer] Other 01-14-2023 15:00-0400 Body height 170.18 cm Marianne Yemi Other [employer] Other 01-14-2023 15:00-0400 Body mass index (BMI) [Ratio] 27.58 kg/m2 Marianne Yemi Other [employer] Other 01-14-2023 15:00-0400 Body temperature 97.3 [degF] Marianne Yemi Other [employer] Other 01-14-2023 15:00-0400 Body weight 79.88 kg Marianne Yemi Other [employer] Other 01-14-2023 15:00-0400 Diastolic blood pressure 82 mm[Hg] Marianne Yemi Other [employer] Other 01-14-2023 15:00-0400 Respiratory rate 18 /min Marianne Yemi Other [employer] Other 01-14-2023 15:00-0400 SaO2% (BldA) [Mass fraction] 100 % Marianne Yemi Other [employer] Other 01-14-2023 15:00-0400 Systolic blood pressure 130 mm[Hg] Marianne Yemi Other [employer] Other 11-30-2022 15:40-0500 Body height 170.18 cm Anand Garcia Other [employer] Other 11-30-2022 15:40-0500 Body mass index (BMI) [Ratio] 27.17 kg/m2 Anand Garcia Other [employer] Other 11-30-2022 15:40-0500 Body temperature 97 [degF] Anand Garcia Other [employer] Other 11-30-2022 15:40-0500 Body weight 78.7 kg Anand Garcia Other [employer] Other 11-30-2022 15:40-0500 Diastolic blood pressure 86 mm[Hg] Anand Garcia Other [employer] Other 11-30-2022 15:40-0500 Respiratory rate 18 /min Anand Garcia Other [employer] Other 11-30-2022 15:40-0500 SaO2% (BldA) [Mass fraction] 98 % Anand Garcia Other [employer] Other 11-30-2022 15:40-0500 Systolic blood pressure 128 mm[Hg] Anand Garcia Other [employer] Other 11-16-2022 12:54-0500 Body height 170.2 cm Anaid Garrick JEWEL HOLE GAUGER.INFORMATICS NURSE Work Phone: [facility] 11-16-2022 12:54-0500 Body weight 78.47 kg Anaid Garrick JEWEL HOLE GAUGER.INFORMATICS NURSE Work Phone: [facility] 11-16-2022 12:54-0500 Diastolic blood pressure 89 mm[Hg] Anaid Garrick JEWEL HOLE GAUGER.INFORMATICS NURSE Work Phone: [facility] 11-16-2022 12:54-0500 Heart rate 76 /min Anaid Garrick JEWEL HOLE GAUGER.INFORMATICS NURSE Work Phone: [facility] 11-16-2022 12:54-0500 Systolic blood pressure 147 mm[Hg] Anaid Garrick JEWEL HOLE GAUGER.INFORMATICS NURSE Work Phone: [facility] 08-26-2022 15:40-0400 Body height 170.18 cm Anand Garcia Other [employer] Other 07-24-2022 15:30-0400 Body weight 77.56 kg Cresencio Robles DO Work Phone: [facility] 07-24-2022 15:30-0400 Diastolic blood pressure 89 mm[Hg] Cresencio Robles DO Work Phone: [facility] 07-24-2022 15:30-0400 Heart rate 62 /min Cresencio Robles DO Work Phone: [facility] 07-24-2022 15:30-0400 Systolic blood pressure 144 mm[Hg] Cresencio Robles DO Work Phone: [facility] 05-25-2022 15:40-0400 Body height 170.18 cm Anand Garcia Other [employer] Other 05-25-2022 15:40-0400 Body mass index (BMI) [Ratio] 27.09 kg/m2 Anand Garcia Other [employer] Other 05-25-2022 15:40-0400 Body temperature 97.2 [degF] Anand Garcia Other [employer] Other 05-25-2022 15:40-0400 Body weight 78.47 kg Anand Garcia Other [employer] Other 05-25-2022 15:40-0400 Diastolic blood pressure 82 mm[Hg] Anand Garcia Other [employer] Other 05-25-2022 15:40-0400 Respiratory rate 18 /min Anand Garcia Other [employer] Other 05-25-2022 15:40-0400 SaO2% (BldA) [Mass fraction] 98 % Anand Bellamyyared Other [employer] Other 05-25-2022 15:40-0400 Systolic blood pressure 124 mm[Hg] Anand Garcia Other [employer] Other 02-12-2022 15:40-0400 Body height 170.18 cm Marianne Yemi Other [employer] Other 02-12-2022 15:40-0400 Body mass index (BMI) [Ratio] 27.09 kg/m2 Marianne Yemi Other [employer] Other 02-12-2022 15:40-0400 Body temperature 97 [degF] Marianne Yemi Other [employer] Other 02-12-2022 15:40-0400 Body weight 78.47 kg Marianne Yemi Other [employer] Other 02-12-2022 15:40-0400 Diastolic blood pressure 80 mm[Hg] Marianne Yemi Other [employer] Other 02-12-2022 15:40-0400 Respiratory rate 18 /min Marianne Yemi Other [employer] Other 02-12-2022 15:40-0400 SaO2% (BldA) [Mass fraction] 99 % Marianne Yemi Other [employer] Other 02-12-2022 15:40-0400 Systolic blood pressure 130 mm[Hg] Marianne Yemi Other [employer] Other 02-06-2022 10:00-0400 Body height 170.18 cm [employer] Other [employer] Other 02-06-2022 10:00-0400 Body mass index (BMI) [Ratio] 27.09 kg/m2 [employer]ario [employer] Other [employer] Other 02-06-2022 10:00-0400 Body weight 78.47 kg [employer] Other [employer] Other 01-19-2022 17:00-0400 Body height 170.18 cm Anand Garcia Other [employer] Other 01-19-2022 17:00-0400 Body mass index (BMI) [Ratio] 27.09 kg/m2 Anand Garcia Other [employer] Other 01-19-2022 17:00-0400 Body temperature 96.7 [degF] Anand Garcia Other [employer] Other 01-19-2022 17:00-0400 Body weight 78.47 kg Anand Garcia Other [employer] Other 01-19-2022 17:00-0400 Diastolic blood pressure 84 mm[Hg] Anand aGrcia Other [employer] Other 01-19-2022 17:00-0400 Respiratory rate 18 /min Anand Bellamyyared Other [employer] Other 01-19-2022 17:00-0400 SaO2% (BldA) [Mass fraction] 99 % Anand Garcia Other Productiv Other 01-19-2022 17:00-0400 Systolic blood pressure 130 mm[Hg] Anand Garcia Other Productiv Other Encounters Encounter Date Encounter Type Care Provider Facility Start: 03-29-2024 End: 03-29-2024 ambulatory SIMONA CARLSON Facility:[facility] Start: 03-29-2024 End: 03-29-2024 Patient encounter procedure Simona Carlson JEWEL HOLE GAUGER.INFORMATICS NURSE Work Phone: Neurology Comment on above: Migraine with aura a nd without status migrainosus, not intractable (Primary Dx); Migraine without aura and without status migrainosus, not intractable Start: 03-03-2024 ambulatory CRESENCIO ROBLES Facility:[facility] Start: 03-02-2024 Telephone encounter Deb Jernigan [facility] Start: 12-24-2023 Telephone encounter Cresencio Onofre on DO Work Phone: Neurology Comment on above: Insurance Authorizat ion (Igikqdy-Nhebli-Btmaf Theraputics) Insurance Authorizat ion (Nkhhrhw-Iuhgcf-Eqoed Theraputic) Start: 12-20-2023 ambulatory Cresencio Robles D O Work Phone: Neurology Comment on above: Possible migraine wi th stroke systems Start: 11-26-2023 End: 11-26-2023 ambulatory CRESENCIO ROBLES Facility:[facility] Start: 10-13-2023 Telephone encounter Salma rodriguez RN Work Phone: [facility] Comment on above: Insurance Authorizat ion (Aimovig 140MG/ML auto-injectors/) Start: 09-20-2023 End: 09-20-2023 ambulatory Anand Garcia Other Productiv Other Start: 09-20-2023 Telephone encounter Anand Garcia [facility] Start: 09-13-2023 End: 09-13-2023 ambulatory Anand Garcai Other Productiv Other Start: 09-13-2023 Office outpatient vi sit 25 minutes Anand Garcia [facility] Start: 09-09-2023 Telephone encounter Cresencio Onofre on DO Work Phone: Neurology Comment on above: Insurance Authorizat ion (TRUDHESA) Start: 07-29-2023 End: 07-29-2023 ambulatory Anand Garcia Facility:[facility] Start: 07-29-2023 End: 07-29-2023 ambulatory DO Anand Garcia Work Phone: [facility] Work Phone: Start: 07-29-2023 End: 07-29-2023 Patient encounter procedure DO Anand Garcia Work Phone: [facility] Work Phone: Start: 07-21-2023 End: 07-21-2023 ambulatory ANAND GARCIA Facility:[facility] Start: 06-09-2023 End: 06-09-2023 ambulatory Anand Garcia Other Productiv Other Start: 06-09-2023 Office outpatient vi sit 25 minutes Anand Garcia [facility] Start: 01-14-2023 End: 03-16-2023 ambulatory Marianne Plummer Other Productiv Other Start: 01-14-2023 Office outpatient vi sit 25 minutes Marianne Plummer [facility] Start: 01-02-2023 End: 01-03-[address] ANAND GARCIA Facility:[facility] Start: 12-29-2022 End: 12-29-2022 ambulatory Anand Garcia Other Productiv Other Start: 12-29-2022 Telephone encounter Anand Garcia [facility] Start: 11-30-2022 End: 11-30-2022 ambulatory Annad Garcia Other Productiv Other Start: 11-30-2022 Office outpatient vi sit 15 minutes Anand Garcia [facility] Start: 11-23-2022 Refill Cresencio Moralez Work Phone: Neurology Comment on above: Refill Request Start: 11-16-2022 End: 11-16-2022 Patient encounter procedure Anaid Mccauley APRN.INFORMATICS NURSE Work Phone: [facility] Comment on above: Cervicalgia (Primary Dx); History of fusion of cervical spine; Cervical spondylosis Start: 11-14-2022 End: 11-15-[address] ANAND GARCIA Facility: Start: 11-13-[address] ([place] [facility] Comment on above: appointment instruct ions (MRI- 11/16/2022 @ 1040am/Appointment reminder call - LEFT MESSAGE - with directions to office and the # to call if they cannot keep this appointment/[phone]/) Start: 10-06-2022 Telephone encounter Salma rodriguez RN Work Phone: [facility] Comment on above: Insurance Authorizat ion (Aimovig 140MG/ML auto-injectors/) Start: 09-28-2022 End: 09-28-2022 ambulatory Anaid Mccauley APRN.INFORMATICS NURSE Work Phone: [facility] Comment on above: Spinal stenosis of c ervical region (Primary Dx); Cervicalgia; History of fusion of cervical spine; Cervical spondylosis Start: 09-28-2022 End: 09-28-2022 Telemedicine consultation with patient Anaid Mccauley APRN.QUIQUE Work Phone: [facility] Start: 09-11-2022 ambulatory No Pcp (Historical) [facility] Start: 08-26-2022 End: 08-26-2022 ambulatory Anand Garcia Other Productiv Other Start: 08-26-2022 Telephone encounter Anand Garcia [facility] Start: 07-29-2022 End: 07-29-2022 ambulatory Anand Garcia Other Productiv Other Start: 07-29-2022 Telephone encounter Anand Garcia [facility] Start: 07-24-2022 End: 07-24-2022 Patient encounter procedure Cresencio Robles DO Work Phone: Neurology Comment on above: Migraine with aura a nd without status migrainosus, not intractable (Primary Dx); Cervicalgia; Migraine without aura and without status migrainosus, not intractable; Bilateral occipital neuralgia Start: 06-02-2022 End: 06-02-2022 Patient encounter procedure DO Anand Garcia [facility] Start: 05-27-2022 Telephone encounter Anand [facility] Start: 05-27-2022 End: 05-28-[address] ANAND GARCIA Productiv Other Start: 05-26-2022 End: 05-27-[address] ANAND GARCIA Facility: Start: 05-25-2022 End: 05-25-2022 ambulatory Anand Garcia Other Productiv Other Start: 05-25-2022 Office outpatient vi sit 25 minutes Anand Garcia [facility] Start: 05-09-2022 End: 05-10-[address] ANAND GARCIA Facility:[facility] Start: 02-12-2022 End: 02-12-2022 ambulatory Marianne Yemi Other Productiv Other Start: 02-12-2022 Office outpatient vi sit 15 minutes Marianne Yemi [facility] Start: 02-11-2022 End: 02-11-2022 ambulatory Dario Olsenle II Other Productiv Other Start: 02-11-2022 Telephone encounter Dario Otoe II [facility] Start: 02-06-2022 End: 02-06-2022 ambulatory Dario Green II Other Productiv Other Start: 02-06-2022 Office outpatient ne w 45 minutes Dario Peter II [facility] Start: 02-03-2022 End: 02-04-[address] ANAND GARCIA Facility:[facility] Start: 01-28-2022 Encounter for preprocedural laboratory examination DR YANNICK ESTRADA [facility] Start: 01-28-2022 End: 01-28-[address] YANNICK ESTRADA Facility:[facility] Start: 01-24-2022 End: 01-25-[address] ANAND GARCIA Facility:[facility] Start: 01-24-2022 End: 01-25-2022 Encounter for preprocedural laboratory examination DR ANAND GARCIA Facility:[facility] Start: 01-20-2022 End: 01-21-[address] ANAND GARCIA Facility:[facility] Start: 01-19-2022 Encounter for preprocedural cardiovascular examination DR YANNICK ESTRADA [facility] Start: 01-19-2022 Encounter for preprocedural laboratory examination DR YANNICK ESTRADA [facility] Start: 01-19-2022 End: 01-19-2022 ambulatory Anand Garcia Other Productiv Other Start: 01-19-2022 Encounter for other preprocedural examination Anand Garcia [facility] Start: 01-19-2022 Office outpatient vi sit 15 minutes Anand Garcia [facility] Start: 01-15-2022 End: 01-16-[address] YANNICK ESTRADA Facility:[facility] Start: 01-15-2022 End: 01-16-2022 Encounter for preprocedural cardiovascular examination DR YANNICK ESTRADA Facility:[facility] Procedures Date Procedure Procedure Detail Performing Clinician Start: 07-29-2023 Screening mammograph y of bilateral breasts DO Anand Garcia Work Phone: Start: 07-17-2022 Adult depression scr eening assessment Cresencio Robles DO Work Phone: Start: 06-02-2022 Screening mammograph y of bilateral breasts DO Anand Garcia Work Phone: Plan of Treatment Date Care Activity Detail Author Start: 07-02-2024 Influenza vaccination Influenz a Vaccine (Season Ended) [facility] Start: 03-29-2024 End: 03-29-2024 Patient encounter procedure 03/29/2024 4:00 PM EDT Office Visit Neurology [address] [facility] [place] [address] Simona Carlson, JEWEL HOLE GAUGER.INFORMATICS NURSE [address] [place] [address] Return in about 4 months (around 03/26/2024). Neurology Comment on above: Return in about 4 mo nths (around 03/26/2024). Start: 03-03-2024 End: 03-03-2024 Patient encounter procedure 03/03/2024 12:00 PM EDT Appointment Radiology [address] [place] [address] MRI BRAIN WO IVCON Radiology Comment on above: MRI BRAIN WO IVCON Start: 11-01-2023 Depression Assessment Depression Ass essment [facility] Start: 07-17-2023 Adult depression screening assessment DEPRESSION SCREENING [facility] Start: 07-02-2023 Covid-19 Vaccine ( season) Covid-19 Vaccine ( season) [facility] Start: 07-02-2023 Influenza vaccination Influenza Vacc ine (#1) [facility] Start: 11-01-2022 [facility] Start: 07-02-2022 Influenza vaccination INFLUENZA (#1) [facility] Start: 11-01-2021 DEPRESSION [facility]MENT [facility] Start: 2017 SHINGRIX VACCINE (1 of 2) SHINGRIX VACCINE (1 of 2) [facility] Start: 2012 COLOGUARD (FIT-DNA) COLOGUARD (FIT-D NA) [facility] Start: 2012 Colonoscopy COLONOSCOPY [facility] Start: 2012 COLORECTAL CANCER SCREENING COLORECTAL CANCER SCREENING [facility] Start: [address] COLONOGRAPHY [facility] Start: 2012 DIABETES SCREEN DIABETES SCREEN [facility] Start: 2012 Diabetes Screening Diabetes Screenin g [facility] Start: 2012 FECAL OCCULT BLOOD FECAL OCCULT BLOO D [facility] Start: 2012 Lipid 1996 panel - S karyna or Plasma Lipid Screening [facility] Start: 2012 Lipid panel Lipid Screening [facility] Start: 2012 LIPID SCREEN LIPID SCREEN [facility] Start: 2012 Screening for malign ant neoplasm of colon [facility] Start: 2012 SIGMOIDOSCOPY SIGMOIDOSCOPY [facility] Start: 2007 Mammography [facility] Start: 2007 Screening for malign ant neoplasm of breast Mammogram Screening [facility] Start: 1997 HPV TESTING HPV TESTING [facility] Start: 1997 Screening for malign ant neoplasm of cervix HPV Testing [facility] Start: 1988 PAP TESTING PAP TESTING [facility] Start: 1988 Screening for malign ant neoplasm of cervix Pap Testing [facility] Start: 1986 Hepatitis B Vaccine (1 of 3 - 19+ 3-dose series) Hepatitis B Vaccine (1 of 3 - 19+ 3-dose series) [facility] Start: 1986 Urine microalbumin profile [facility] Start: 1985 HEPATITIS C SCREENING HEPATITIS C [facility] Start: 1985 Hepatitis C screening Hepatitis C [facility] Start: 1985 HIV SCREENING HIV SCREENING [facility] Start: 1985 HIV screening HIV Screening [facility] Start: 1967 COVID-19 VACCINE (#1) COVID-19 VACCI NE (#1) [facility] Start: 1967 HEPATITIS B (1 of 3 - 3-dose series) HEPATITIS B (1 of 3 - 3-dose series) [facility] Start: 1967 Hepatitis B Vaccine (1 of 3 - 3-dose series) Hepatitis B Vaccine (1 of 3 - 3-dose series) [facility] End: 02-05-2025 MR Brain WO contrast MRI BRAIN WO IVCON Radiology Routine [place] headache 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 starting 01/07/2024 until 02/05/2025 [facility] Work Phone: Comment on above: 1 Occurrences starti ng 01/07/2024 until 02/05/2025 End: 02-05-2025 MRA Head vessels WO contrast MRA BRAIN WO IVCON Radiology Routine [place] headache 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 starting 01/07/2024 until 02/05/2025 [facility] Work Phone: Comment on above: 1 Occurrences starti ng 01/07/2024 until 02/05/2025 End: 10-28-2023 Mri spinal canal cervical w/o contrast matrl MRI CERVICAL SPINE WO IVCON Radiology Routine Cervicalgia History of fusion of cervical spine Cervical spondylosis 1 Occurrences starting 09/28/2022 until 10/28/2023 [facility] Work Phone: Comment on above: 1 Occurrences starti ng 09/28/2022 until 10/28/2023 [facility] Payers Date Payer Category Payer Self-pay [id number] 2019 Unknown [employer] PPO OOS [id number] 2019-Present [phone] [address] [place] [address] PPO [id number] 1967 Unknown [id number] 93 1967 Unknown [id number] 93 1967 Unknown [id number] 93 1967 Unknown [id number] 93 1967 Unknown [id number] 93 1967 Unknown [id number] 93 1967 Unknown [id number] 93 1967 Unknown [id number] 93 1967 Unknown [id number] 93 1967 Unknown [id number] 93 1959 [facility] Blue [facility] [id number] Unknown [facility] [id number] Unknown [id number] 31 Social History Date Type Detail Facility Unknown if ever smoked Productiv Other Start: 11-16-2022 End: 03-29-2024 Sex Assigned At [facility] Start: 1965 Sex Assigned At Female [facility] Start: 01-31-2018 End: 11-16-2022 Tobacco smoking status NHIS Never smoked tobacco [facility] Start: 01-31-2018 End: 11-16-2022 Tobacco use and exposure Smokeless tobacco non-user [facility] Start: 01-29-2021 End: 03-29-2024 Alcohol intake Current drinker of alcohol (finding) [facility] Start: 10-11-2015 History SDOH Alcohol Comment Infrequent [facility] Start: 1965 Sex Assigned At Not on file [facility] Start: 07-14-2022 End: 07-24-2022 Exposure to SARS-CoV-2 (event) Not sure [facility] Start: 11-16-2022 End: 03-29-2024 History of Social function [facility] Adult Depression Screening Assessment 1 [facility] Clinical Notes 08-25-2021 to 03-29-2024 Simona Carlson APRN.CNP - 03/29/2024 4:00 PM EDTTelephone Encounter - Deb Jernigan - 03/02/2024 2:19 PM EDTTelephone Encounter - Deb Jernigan - 03/02/2024 2:19 PM EDT Note Date & Type Note Facility 03-29-2024 Note HNO ID: [id number] Author: SIMONA CARLSON APRN.QUIQUE Service: ? Author Type: Nurse Practitioner Type: Progress Notes Filed: 03/29/2024 16:23 Note Text: Headache Center - Follow up Visit Accompanied by: Self Primary Problem List: ACTIVE PROBLEM LIST Chronic Daily Headache Chronic [...] Without Aura and With Status Migrainosus Cervicalgia Chronic Migraine Without Aura, Intractable, Without Status Migrainosus Status Migrainosus Chief Complaint: Follow-up Impression and Plan from last visit: [facility] 11/26/[address] Robles. Myrtle Jones is a 58-year-old female with history significant for chronic migraine, chronic neck pain (s/p fusion x2), occipital neuralgia and HTN. At her last visit she was to switch Aimovig to Qulipta and trial Ubrelvy. Interval Headache History: She has seen reduction in migraine frequency and auras since starting Qulipta. Ubrelvy works most of the time. Tolerates the medications well. Headache 1 Location: right and frontal Quality/Description: throbbing Worse with activity: yes Number of migraine headache days/month: 2 Number of NON-migraine headache days/month: 8 Total Number of headache days/month: 10 Number of headache free days/month: 20 Duration of headaches with treatment: 1 hours Current preventive treatment: Qulipta, Propranolol Current abortive treatment: Ubrelvy Relieving factors: Medication, laying down, rest/sleep Aura: scotoma (Squiggly lines. Lasts about 30 minutes.) Days missed from work or school in the last month: 1 days Headache status since the last visit: better Prior Therapies Duration of Use Dose Reason for Discontinuation Other Therapies Nerve blocks Analgesic Butalbital/acetaminophen/caffein e (Fioricet) Hydrocodone/Acetaminophen (Vicodin, [place]) Anti-Convulsant Topiramate (Topamax, Trokendi XL, Qudexy) Anti-Depressant and Antipsychotic Amitriptyline (Elavil) Duloxetine (Cymbalta) Nortriptyline (Pamelor, Aventyl) Antiemetics Ondansetron Anti-Migraine Dihydroergotamine (DHE-45, Migranal) Rizatriptan (Maxalt) Sumatriptan (Imitrex, Sumavel) Zolmitriptan (Zomig) Blood Pressure Propranolol (Inderal) Timolol MABs Erenumab (Aimovig) Botulinum Toxin Onabotulimum Toxin A (Botox) Other Medications Prednisone Over the Counter Medications Acetaminophen (Tylenol) Acetaminophen/Aspirin/Caffeine (Excedrin, Goody?s) Ibuprofen (Advil, Motrin) PAST MEDICAL HISTORY Diagnosis Date Cervicalgia Migraine with aura PAST SURGICAL HISTORY Procedure Laterality Date PAST SURGICAL HISTORY OF Cervical spine fusion C5-6 PAST SURGICAL HISTORY OF CTS b/l PAST SURGICAL HISTORY OF Hysterectomy PAST SURGICAL HISTORY OF Lasik PAST SURGICAL HISTORY OF L elbow ALLERGIES Allergen Reactions Topamax [Topiramate] Mental Status Change Issues and questions to be addressed: Medications propranolol ER (INDERAL LA) 80 mg 24 hr capsule Take 1 capsule by mouth once daily. ubrogepant (UBRELVY) 100 mg tablet Take 1 tab at migraine onset. May repeat once in 2 hours as needed. atogepant (QULIPTA) 60 mg tablet Take 1 tablet (60 mg) by mouth once daily. rosuvastatin (CRESTOR) 5 mg tablet Take 1 tablet by mouth every afternoon. magnesium hydroxide (MAGNESIA ORAL) Take 400 mg by mouth once daily. scopolamine (TRANSDERM-SCOP) 1.5 mg (1 mg over [...] B-12, (VITAMIN B-12 ORAL) Take by mouth. I have reviewed the [place] Status Assessment responses and discussed these with the patient: Yes, Simona Carlson APRN.INFORMATICS NURSE HEADACHE SCORES: 07/14/2023 11/22/2023 03/22/2024 Headache Questions ER visits since last office visit: 0 0 0 Hospital stays since last office visit 0 0 0 Limited ADLs in the last month: 9 8 2 Days missed from work or school in the last month: 0 0 1 Days headache pain free in the last month: 10 12 20 Days per month with ALL of the following symptoms - decreased productivity, light sensitivity and nausea: 9 8 2 Initial improvement of headache after botox injection at last visit: Not applicable, I did not have a botox injection at my last visit Not applicable, I did not have a botox injection at my last visit Not applicable, I did not have a botox injection at my last (more content not included)... [facility] 03-29-2024 History of Presen t illness Narrative Images from the original note were not included. Headache Center - Follow up Visit Accompanied by: Self Primary Problem List: ACTIVE PROBLEM LIST Chronic Daily Headache Chronic [...] Without Aura and With Status Migrainosus Cervicalgia Chronic Migraine Without Aura, Intractable, Without Status Migrainosus Status Migrainosus Chief Complaint: Follow-up Impression and Plan from last visit: [facility] 11/26/[address] Robles. Myrtle Jones is a 58-year-old female with history significant for chronic migraine, chronic neck pain (s/p fusion x2), occipital neuralgia and HTN. At her last visit she was to switch Aimovig to Qulipta and trial Ubrelvy. Interval Headache History: She has seen reduction in migraine frequency and auras since starting Qulipta. Ubrelvy works most of the time. Tolerates the medications well. Headache 1 Location: right and frontal Quality/Description: throbbing Worse with activity: yes Number of migraine headache days/month: 2 Number of NON-migraine headache days/month: 8 Total Number of headache days/month: 10 Number of headache free days/month: 20 Duration of headaches with treatment: 1 hours Current preventive treatment: Qulipta, Propranolol Current abortive treatment: Ubrelvy Relieving factors: Medication, laying down, rest/sleep Aura: scotoma (Squiggly lines. Lasts about 30 minutes.) Days missed from work or school in the last month: 1 days Headache status since the last visit: better Prior Therapies Duration of Use Dose Reason for Discontinuation Other Therapies Nerve blocks Analgesic Butalbital/acetaminophen/caffein e (Fioricet) Hydrocodone/Acetaminophen (Vicodin, [place]) Anti-Convulsant Topiramate (Topamax, Trokendi XL, Qudexy) Anti-Depressant and Antipsychotic Amitriptyline (Elavil) Duloxetine (Cymbalta) Nortriptyline (Pamelor, Aventyl) Antiemetics Ondansetron Anti-Migraine Dihydroergotamine (DHE-45, Migranal) Rizatriptan (Maxalt) Sumatriptan (Imitrex, Sumavel) Zolmitriptan (Zomig) Blood Pressure Propranolol (Inderal) Timolol MABs Erenumab (Aimovig) Botulinum Toxin Onabotulimum Toxin A (Botox) Other Medications Prednisone Over the Counter Medications Acetaminophen (Tylenol) Acetaminophen/Aspirin/Caffeine (Excedrin, Goody s) Ibuprofen (Advil, Motrin) PAST MEDICAL HISTORY Diagnosis Date Cervicalgia Migraine with aura PAST SURGICAL HISTORY Procedure Laterality Date PAST SURGICAL HISTORY OF Cervical spine fusion C5-6 PAST SURGICAL HISTORY OF CTS b/l PAST SURGICAL HISTORY OF Hysterectomy PAST SURGICAL HISTORY OF Lasik PAST SURGICAL HISTORY OF L elbow ALLERGIES Allergen Reactions Topamax [Topiramate] Mental Status Change Issues and questions to be addressed: Medications propranolol ER (INDERAL LA) 80 mg 24 hr capsule Take 1 capsule by mouth once daily. ubrogepant (UBRELVY) 100 mg tablet Take 1 tab at migraine onset. May repeat once in 2 hours as needed. atogepant (QULIPTA) 60 mg tablet Take 1 tablet (60 mg) by mouth once daily. rosuvastatin (CRESTOR) 5 mg tablet Take 1 tablet by mouth every afternoon. magnesium hydroxide (MAGNESIA ORAL) Take 400 mg by mouth once daily. scopolamine (TRANSDERM-SCOP) 1.5 mg (1 mg over [...] B-12, (VITAMIN B-12 ORAL) Take by mouth. I have reviewed the [place] Status Assessment responses and discussed these with the patient: Yes, Simona Carlson, GHISLAINE.INFORMATICS NURSE HEADACHE SCORES: 07/14/2023 11/22/2023 03/22/2024 Headache Questions ER visits since last office visit: 0 0 0 Hospital stays since last office visit 0 0 0 Limited ADLs in the last month: 9 8 2 Days missed from work or school in the last month: 0 0 1 Days headache pain free in the last month: 10 12 20 Days per month with ALL of the following symptoms - decreased productivity, light sensitivity and nausea: 9 8 2 Initial improvement of headache after botox injection at last visit: Not applicable, I did not have a botox injection at my last visit Not applicable, I did not have a botox injection at my last visit Not applicable, I did not have a botox injection at my last visit PRN medication usage in the last month: 15 18 8 Patient impression of improvement since last visit: Minimally worse Much worse Much improved 07/14/2023 11/22/2023 03/22/2024 HIT-6 HIT-6 64 (Severe impact) 63 (Severe impact) 59 (Substantial impact) 07/14/2023 11/22/2023 03/22/2024 GIL - 2/7 SCORES GIL-2 Score 0 4 4 GIL-7 Score 10 14 07/14/2023 11/22/2023 03/22/2024 Migraine Specific QOL - Higher scores indicate better HRQL Role Function-Restrictive Transformed Score (range: 0-100) 62.86 40 60 Role Function-Preventive Transformed Score (range: 0-100) 70 70 70 Emotional Function Transformed Score (range: 0-100) 93.33 93.33 93.33 07/14/2023 11/22/2023 03/22/2024 PHQ-9 Score 6 5 10 Studies to Review: MRI Head/Brain - Last 2 Impressions MRI BRAIN WO IVCON Exam End: 03/03/2024 12:57 PM (Final result) Impression: IMPRESSION: No acute intracranial abnormality including no evidence of an acute or recent brain parenchymal infarct. ... MRA Head and/or Neck - Last 2 Impressions MRA BRAIN WO IVCON Exam End: 03/03/2024 12:57 PM (Final result) Impression: IMPRESSION: No acute intracranial abnormality including no evidence of an acute or recent brain parenchymal infarct. Patent intracranial cerebral arterial circulation by MRA. Glost Tile Sorter: ELEAZAR Transcribe Date/Time: Mar 03 2024 1:06P Dictated by : ROSANA SANCHEZ DO This examination was interpreted and the report reviewed and electronically signed by: ROSANA SANCHEZ DO on Mar 03 2024 1:11PM EST MRI Spine - Last 2 Impressions MRI CERVICAL SPINE WO IVCON Exam End: 11/16/2022 11:16 AM (Final result) Impression: IMPRESSION: Postoperative and spondylotic changes without high-grade bony canal or foraminal compromise, as detailed. Anatomic Variant: None. Assume 7 cervical vertebrae with counting from the craniocervical junction. [place] Tile Sorter: ELEAZAR Transcribe Date/Time: Nov 16 2022 11:21A Dictated by : ROSANA FUNK MD This examination was interpreted and the report reviewed and electronically signed by: ROSANA FUNK MD on Nov 16 2022 11:31AM EST New Health Issues: No New Social History: No New Family History: No Review of Systems: Review of system: unchanged from the previous visit (sleep patterns, mood, energy, appetite, stress, exercising). Physical Examination: BP 142/68 Pulse 67 Ht 170.2 cm (5' 7 ) Wt 73.6 kg (162 lb 4.1 oz) BMI 25.41 kg/m General: Well appearing, in no acute distress, alert. HEENT: Normocephalic/atraumatic. Skin: Color, texture, turgor normal. No rashes or lesions. Musculoskeletal: No gross joint deformities. Neurological: Normal mental status. Attentive. Thought process and content unremarkable. Follows commands appropriately. Speech fluent. Stable primary gait. IMPRESSION: Migraine with aura and without status migrainosus, not intractable (primary encounter diagnosis) Migraine without aura and without status migrainosus, not intractable Myrtle Jones is a 58-year-old female with history significant for chronic migraine, chronic neck pain (s/p fusion x2), occipital neuralgia and HTN. She presents today for follow-up regarding migraine. She has seen significant improvement since starting Qulipta with reduced migraine frequency and severity. Ubrelvy is an effective rescue treatment most of the time. We will continue her current treatment regimen at this time. Myrtle Jones has been previously approved for an Oral Calcitonin Gene-Related Peptide Receptor Antagonist (GEPANT) Atogepant for the treatment of preventative treatment. The patient has demonstrated the following: Provider attests patient has had a positive clinical response: Yes Patient's quality of life and ability to perform ADLs has improved: Yes The patient has tried and failed the following : We suggest the patient continue treatment with GEPANT Atogepant. The following preventative medications have been tried [...] Headache: Analgesic Butalbital/acetaminophen/caffein e (Fioricet) Hydrocodone/Acetaminophen (Vicodin, [place]) Anti-Migraine Dihydroergotamine (DHE-45, Migranal) Rizatriptan (Maxalt) Sumatriptan (Imitrex, Sumavel) Zolmitriptan (Zomig) Over the Counter Medications Acetaminophen (Tylenol) Acetaminophen/Aspirin/Caffeine (Excedrin, Goody s) Ibuprofen (Advil, Motrin) Myrtle Jones has been previously approved for an Oral Calcitonin Gene-Related Peptide Receptor Antagonist (GEPANT) Ubrogepant for the treatment of abortive use. The patient has demonstrated the following: Provider attests patient has had a positive clinical response: Yes Patient's quality of life and ability to perform ADLs has improved: Yes The patient has tried and failed the following : We suggest the patient continue treatment with GEPANT Ubrogepant. The following preventative medications have been tried [...] Headache: Analgesic Butalbital/acetaminophen/caffein e (Fioricet) Hydrocodone/Acetaminophen (Vicodin, [place]) Anti-Migraine Dihydroergotamine (DHE-45, Migranal) Rizatriptan (Maxalt) Sumatriptan (Imitrex, Sumavel) Zolmitriptan (Zomig) Over the Counter Medications Acetaminophen (Tylenol) Acetaminophen/Aspirin/Caffeine (Excedrin, Goody s) Ibuprofen (Advil, Motrin) PLAN: HEADACHE MANAGEMENT: (You are the primary guardian of your health and headache. Keep track of all medications: This includes the reason for use, side effects and benefits.) MEDICATION TREATMENT: Abortive therapy: -Continue Ubrelvy as needed for migraine. Preventive therapy: -Continue Qulipta 60 mg daily. -Continue Propranolol 80 mg daily. -Continue Magnesium. Headache education was done. Discussed triggers and lifestyle modifications. Discussed treatment options including preventive and acute medications, natural supplements, and infusion therapy. Discussed medication overuse headache and to limit use of acute treatments to no more than 2 days/week or 10 days/month. Discussed medication side effects, adverse reactions and drug interactions. Follow-up: 6 months, 1 year, PRN Level of service: Est level 2 (10-19 min). Time spent 15 min on the day of service, which included preparing to see the patient, [id number] patient care, completing clinical documentation, obtaining and/or reviewing separately obtained history, performing a medically appropriate examination, and counseling and educating the patient/family/caregiver. Simona Carlson APRN.INFORMATICS NURSE documented in this encounter [facility] 03-02-2024 Telephone encounter Note Appointment reminder call-spoke with patient -gave directions to office [facility] 03-02-2024 Miscellaneous Notes Appointment reminder call-spoke with patient -gave directions to office documented in this encounter [facility] 12-24-2023 Miscellaneous Notes Completed over [facility]: MYRTLE JONES Palafox: [id number] - [place] Drug Ubrelvy 100MG tablets Form [place] Commercial Electronic PA Form (2016 [facility]) Approvedtoday Your request was approved based on the initial information provided at the time of the coverage request submission. Please allow additional time for the final decision to be made and added to the patient's account. Katia Alexander documented in this encounter [facility] 12-24-2023 Miscellaneous Notes Completed PA over CMM: MYRTLE JONES Palafox: [id number] - [place] Drug Qulipta 60MG tablets Form [place] Commercial Electronic PA Form (2016 [facility]) Approvedtoday Your request was approved based on the initial information provided at the time of the coverage request submission. Please allow additional time for the final decision to be made and added to the patient's account. Katia Alexander documented in this encounter [facility] 12-23-2023 Miscellaneous Notes Patient last seen on 11/26/23. documented in this encounter [facility] 11-26-2023 Note HNO ID: [id number] Author: CRESENCIO ROBLES, DO Service: ? Author [...] Headache: Analgesic Butalbital/acetaminophen/caffein e (Fioricet) Hydrocodone/Acetaminophen (Vicodin, [place]) Anti-Migraine Dihydroergotamine (DHE-45, Migranal) Rizatriptan (Maxalt) [...] Headache: Analgesic Butalbital/acetaminophen/caffein e (Fioricet) Hydrocodone/Acetaminophen (Vicodin, [place]) Anti-Migraine Dihydroergotamine (DHE-45, Migranal) Rizatriptan (Maxalt) [...] sensitivity and nausea: (more content not included)... [facility] 10-20-2023 Miscellaneous Notes Ambulatory Pharmacy Prior Authorization Note Provider Intervention Required?: No- Pharmacy completed on your behalf. Rx Plan: Other: bcbs Drug: Aimovig 140MG/ML auto-injectors Cover My Meds Palafox: [id number] Determination: Approved Prior Authorization/Case #: [id number] Prior Authorization Expiration: 10/16/2024 Time to PA [...] refills. Prescriptions will now be processed through [facility] for determination of next steps. For questions relating to this submission, please contact [facility] at [phone] [facility] received prescription(s) for Aimovig 140MG/ML auto-injectors. Benefits investigation was conducted, indicating that a prior authorization is required. PA was initiated and pending review through [employer]. All pertinent clinical information was submitted to insurance. [facility] Palafox: [id number] Ordering Provider: Cresencio Robles DO Murtaugh, Alisha, RN [facility] P: , F: documented in this encounter [facility] 09-13-2023 Evaluation note Encounter Date Diagnosis Assessment [...] current substance abuse treatments are being prescribed. 13 Sep, 2023 Chronic kidney disease (ICD-10 - N18.9) Discussed [...] let Dr. Teran know about this. Sep, correction use of drug (ICD-10 - Z79.899) Sep, Weight gain (ICD-10 - R63.5) She has gained three pounds since last seen. [employer] Other 11-09-2023 Miscellaneous Notes* Telephone Encounter - Katia Alexander - 09/09/2023 2:36 PM EST Completed over [facility]: MYRTLE JONES Palafox: [id number] - [place] Drug Trudhesa 0.725MG/ACT aerosol Form [place] [employer] Electronic PA Form (2016 [facility]) Approvedtoday Your request was approved based on the initial information provided at the time of the coverage request submission. Please allow additional time for the final decision to be made and added to the patient's account. Katia Alexander [facility] [place] NoteHNO ID: [id number] Author: Cresencio Robles, DO Service: ? Author [...] Overuse Headache: Analgesic Butalbital/acetaminophen/caffeine (Fioricet) Hydrocodone/Acetaminophen (Vicodin, [place]) Anti-Migraine Dihydroergotamine (DHE-45, Migranal) Rizatriptan (Maxalt) [...] once daily. erenumab-aooe 140 mg/mL subcutaneous auto-injector (AIMOVIUnruly) INJECT 140 MG SUBCUTANEOUSLY ONCE EVERY MONTH. SUMAtriptan (IMITREX) 20 mg/actuation nasal spray 1 spray in 1 nostril at migraine onset. May repeat once in 2 hours if needed. ZOLMitriptan (ZOMIG) 5 mg nasal spray 1 spray in 1 nostril at headache onset. May repeat once in 2 hour (more content not included)...[facility]08-09-2023 Evaluation note* Encounter Date Diagnosis Assessment Notes [...] Creatinine is 1.24. EGFR is 45. 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 Jun, Breast cancer screen ing (ICD-10 - Z12.31) Provided her with an order to have a bilateral mammogram done. [employer] Other 03-16-2023 Evaluation note* Encounter Date Diagnosis Assessment Notes Treatment Notes Treatment Clinical Notes Dec, Chronic kidney disethomas silverman, stage 3 unspecified (ICD-10 - N18.30) She [...] E83.42) Advised her to resume oral magnesium. [employer] Other 02-28-2023 Evaluation note* Encounter Date Diagnosis Assessment Notes Treatment Notes Treatment Clinical Notes Dec, Degenerative disc disease, cervical (ICD-10 - M50.30) [employer] Other 01-30-2023 Evaluation note* Encounter Date Diagnosis [...] Stay hydrated with plenty of water. Nov, correction use of carine g (ICD-10 - Z79.899) [...] day so she has to use caution. 30 Nov, 2022 Weight gain (ICD-10 - R63.5) She has gained 1/2 pound since last seen. Her TSH is normal at 1.092. Nov, Other She wears a compression stocking on her right foot because she found that it was swelling at times. [employer] Other [id number] Miscellaneous Notes* Telephone Encounter - Evelyne Garcia - 11/24/2022 9:11 AM EST Physician: Call from patient requesting refill. Please E-Scribe Last office visit 07/24/2022 with Robles in person Next office visit Not scheduled. Requested Prescriptions Pending Prescriptions Disp Refills propranolol ER (INDERAL LA) 80 mg 24 hr capsule 90 capsule 3 Sig: Take 1 capsule by mouth once daily. [facility] [place] Instructions* Patient Instructions* Anaid Mccauley APRN.CNP - 11/16/2022 1:14 PM EST Images from the original note were not included. Mychart with updates. [facility] [place] History of Present illness Narrative* Anaid Mccauley [...] nortriptyline, topomax, vicodin Physical Therapy: Online through [employer]. Started in April 2022- current Treating Physicians: [...] Considerations: C7-T1 facet block (discuss with gregory), ZURI 6. Follow up: update on mychart [facility] [place] Miscellaneous Notes* Telephone Encounter - Lori Palmer - 11/13/2022 2:14 PM EST MRI- 11/16/2022 @ 1040am Appointment reminder call - LEFT MESSAGE - with directions to office and the # to call if they cannot keep this appointment [phone] [facility] [place] Miscellaneous Notes* Telephone Encounter - Salma Callejas [...] refills. Prescriptions will now be processed through [facility] for determination of next steps. For questions relating to this submission, please contact [facility] [phone] * Telephone Encounter - Salma Callejas RN - 10/06/2022 2:56 PM EST [facility] received prescription(s) for Aimovig 140MG/ML auto-injectors . Benefits investigation was conducted, indicating that a prior authorization is required. PA was initiated and pending review through [employer]. All pertinent clinical information was submitted to insurance. CMM Palafox: [id number] Ordering Provider: DO Júnior Jara Alisha, RN [facility] P: , F: [facility] [place] History of Present illness Narrative* Anaid Mccauley, JEWEL HOLE GAUGER.INFORMATICS NURSE - 09/28/2022 5:06 PM EST Spine Care [...] nortriptyline, topomax, vicodin Physical Therapy: Online through [employer]. Started in April 2022- current Treating Physicians: [...] Level: 3 - Low documented [facility] [place] History of Present illness Narrative* Kayla Wakefield [...] 11, 2022 3:24 PM documented [facility] [place] Evaluation note* Encounter Date Diagnosis Assessment Notes Treatment Notes Treatment Clinical Notes Aug, Degenerative disc disease, cervical (ICD-10 - M50.30) She voices that her neck continues to hurt, she has bad days, and then she has somewhat bad days, it is never pain free. She went and saw Anaid Mccauley from [facility] and she would like [...] Aug, Other 2:50 PM - 2:57 PM [employer] Other 09-28-2022 Evaluation note* Encounter Date Diagnosis Assessment Notes Treatment Notes Treatment Clinical Notes Jul, Degenerative disc disease, cervical (ICD-10 - M50.30) [employer] Other 09-23-2022 History of Present illness Narrative* Cresencio Robles, - 07/24/2022 3:35 PM EDT Headache Center [...] Overuse Headache: Analgesic Butalbital/acetaminophen/caffeine (Fioricet) Hydrocodone/Acetaminophen (Vicodin, [place]) Anti-Migraine Dihydroergotamine (DHE-45, Migranal) Rizatriptan (Maxalt) [...] Nerve blocks Analgesic Butalbital/acetaminophen/caffeine (Fioricet) Hydrocodone/Acetaminophen (Vicodin, [place]) Anti-Convulsant Topiramate (Topamax, Trokendi XL, Qudexy) [...] fluent. Stable primary gait. Cresencio Robles DO [facility] [place] [facility] [address] [place] [address] Level of service: Est level 2 (10-19 min). Time spent 18 min on the day of service, which included preparing to see the patient, [id number] patient care, completing clinical documentation, obtaining and/or reviewing separately obtained history, counseling and educating the patient/family/caregiver, and ordering medications, tests, or procedures. Medical Decision Making: Medical Decision Making Level: 1 - N/A cc: Anand Garcia [address] [place] [address] documented [facility] [place] Evaluation note* Encounter Date Diagnosis Assessment Notes [...] some research on the keto diet. 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 She did have a colonoscopy in 2019. We discussed that chronic kidney disease can cause this to go down and make someone slightly anemic. This is something that we can continue to monitor. [employer] Other 04-14-2022 Evaluation note* Encounter Date Diagnosis [...] her to lower the vitamin D supplement [employer] Other 04-08-2022 Evaluation note* Encounter Date Diagnosis [...] oral anti-inflammatorie s and Tylenol. Recommended utilizing ispf-dqq-kgywhtt oral anti-inflammatorie s. Recommended adjusting their Tylenol [...] well.. 5. Follow up in 3 months. [employer] Other 03-30-2022 NoteThe [place], [place] NAME: MYRTLE JONES DATE OF : MEDICAL REC#: [id number] DIRECTOR INDUSTRIAL: [address] [facility], TRANSADMIT DATE: 01/28/2022 06:21:00 SALES AND IN HOME DELIVERY SPECIALIST DATE: 01/28/2022 22:00 DICTATING PHYSICIAN: YANNICK ETSRADA DICTATION DATE: 01/28/2022 08:00 OPERATIVE NOTE ANESTHESIA: [...] Estrada DPM on 02/10/2022 03:19 PM EDT IFC Signed and Approved by: DR YANNICK ESTRADA 02/10/2022 15:19:00[facility]03-23-2022 NotePROCEDURE: XR HIP RT 2 3V [...] Electronically authenticated by: ANAND KELLY Date: 2022-01-21 07:06[facility]03-21-2022 Evaluation note* Encounter Date Diagnosis Assessment Notes Treatment Notes Treatment Clinical Notes Dec, Foot pain, right (ICD-10 - M79.671) She is having surgery per Dr. Estrada on her right foot. She voices that she has a spur and a bunion. She will have this done at the [facility]. She voices that she can walk and [...] pain was likely coming from her back. [employer] Other 12-06-2021 NoteHOSPITAL REGULATIONS: All Positive and [...] of care. Cole Hidalgo M.D. Dictated: 09/23/2021 [id number] Transcribed: 09/23/2021 *Anand Garcia D.O.[facility] Healthcare SystemComment on above:Result Comment: Electronically Signed By: Gwen CANNON, Cole Anaya\.br\Date and Time Signed: 10/06/21 13:52 [id number] Note [id number]:127[facility] 08-25-2021 NoteHOSPITAL REGULATIONS: All Positive and Important [...] symptoms become more pro (more content not included)...[facility] SystemComment on above:Result Comment: Electronically Signed By: Gwen CANNON, Cole Sandoval.bashir\Date and Time Signed: 08/25/21 13:52 EDTEvaluation noteNo InformationNort [employer] Other Evaluation noteNo assessment information available [facility] Work Phone: Evaluation note* Diagnosis Migraine with aura and without status migrainosus, not intractable- Primary Migraine with aura, without mention of intractable migraine without mention of status migrainosus Cervicalgia Migraine without aura and without status migrainosus, not intractable Migraine without aura, without mention of intractable migraine without mention of status migrainosus Bilateral occipital neuralgia Other syndromes affecting cervical region [facility]* Diagnosis Spinal stenosis of cervical region- Primary Spinal stenosis in cervical region Cervicalgia History of fusion of cervical spine Arthrodesis status Cervical spondylosis Cervical spondylosis without myelopathy documented in this encounter [facility] note* Diagnosis Cervicalgia- Primary History of fusion of cervical spine Arthrodesis status Cervical spondylosis Cervical spondylosis without myelopathy documented in this encounter [facility] note* Diagnosis Thunderclap headache- Primary Headache 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 documented in this encounter [facility] note* Diagnosis Migraine with aura and without status migrainosus, not intractable- Primary Migraine with aura, without mention of intractable migraine without mention of status migrainosus Migraine without aura and without status migrainosus, not intractable Migraine without aura, without mention of intractable migraine without mention of status migrainosus documented in this encounter [facility] general Narrative - Reported* Type Description Date Medical History Pneumonia - 1977 Medical History Uterine Fibroids - 1997 Medical History Last Pap 2009; Dr. Phoenix Medical History Last Mammogram 2009; [facility] Medical History History of EKG; due to Chest Pain at Dr. Prater Medical History Fractured right wrist as a child Medical History lt elbow torn ligame nt - had surgery - [facility] - workers comp Medical History migraine headaches [...] 202804/12/2019 Hospitalization History See Above Surgical Hx [employer] Other History general Narrative - Reported* Type Description Date Medical History Pneumonia - 1977 Medical History Uterine Fibroids - 1997 Medical History Last Pap 2009; Dr. Phoenix Medical History Last Mammogram 2009; [facility] Medical History History of EKG; due to Chest Pain at Dr. Prater Medical History Fractured right wrist as a child Medical History lt elbow torn ligame nt - had surgery - [facility] - workers comp Medical History migraine headaches [...] Surgical History CTS Release bilaterally- Dr. Susan bell 1995 Surgical History neck surgery Surgical History elbow [...] 01/28/2022 Hospitalization History See Above Surgical Hx [employer] Other History general Narrative - Reported* Type Description Date Medical History Pneumonia - 1977 Medical History Uterine Fibroids - 1997 Medical History Last Pap 2009; Dr. Phoenix Medical History Last Mammogram 2009; [facility] Medical History History of EKG; due to Chest Pain at Dr. Prater Medical History Fractured right wrist as a child Medical History lt elbow torn ligame nt - had surgery - [facility] - workers comp Medical History migraine headaches [...] Surgical History CTS Release bilaterally- Dr. Susan bell 1995 Surgical History neck surgery Surgical History elbow [...] surgery Hospitalization History See Above Surgical Hx Productiv Other Summary Purpose Family History No Family [...] Referral Specialty Diagnoses / Procedures Referred By Contac t Referred To Contact MR IMAGING Diagnoses Thunderclap headache Dissection of vertebral artery (HCC) Procedures MRA BRAIN WO IVCON MRA, HEAD W/O CONTRAST Robles, Cresencio P, DO [address] [place] [address] [place] [facility] Referral ID Status Reason Start Date Expiration Date Visits Requested Visits Authorized [id number] Pending Review Auto-Generat ed Referral 01/07/2024 02/05/2025 1 1 Specialty Diagnoses / Procedures Referred By Contac t Referred To Contact MR IMAGING Diagnoses Thunderclap headache Dissection of vertebral artery (HCC) Procedures MRI BRAIN WO IVCON MRI BRAIN BRAIN STEM W/O CONTRAST MATERIAL Robles, Cresencio P, DO [address] [place] [address] Mr [place] [facility] Referral ID Status Reason Start Date Expiration Date Visits Requested Visits Authorized [id number] Pending Review Auto-Generat ed Referral 01/07/2024 02/05/2025 1 1 Specialty Diagnoses / Procedures Referred By Contac t Referred To Contact MR IMAGING Diagnoses Cervicalgia History of fusion of cervical spine Cervical spondylosis Procedures MRI CERVICAL SPINE WO IVCON MRI SPINAL CANAL CERVICAL W/O CONTRAST Anaid Adams, JEWEL HOLE GAUGER.INFORMATICS NURSE [address] [place] [address] Mr Imaging Referral ID Status Reason Start Date Expiration Date Visits Requested Visits Authorized [id number] Pending Review Auto-Generat ed Referral 2 10/28/2023 1 1 Specialty Diagnoses / Procedures Referred By Contac t Referred To Contact [facility] [place] Diagnoses Cervicalgia Procedures [facility]SULT TO [facility] OFFICE/OUTPATIENT NEW HIGH MDM 60-74 MINUTES Cresencio Robles DO [address] [address] Referral ID Status Reason Start Date Expiration Date Visits Requested Visits Authorized [id number] Authorized PCP Requested Referral 07/24/2022 07/24/2023 1 1 Additional Source Comments INFORMATION SOURCE (unrecogn ized section and content) DATE CREATED AUTHOR 12/26/2021 [facility] DATE CREATED AUTHOR AUTHOR'S ORGANIZ ATION 01/05/2023 [facility] DATE CREATED AUTHOR AUTHOR'S ORGANIZ ATION 08/09/2023 [facility] DATE CREATED AUTHOR AUTHOR'S ORGANIZ ATION 03/04/2024 [facility] DATE CREATED AUTHOR AUTHOR'S ORGANIZ ATION 03/31/2024 [facility] REASON FOR VISIT (unrecogniz ed section and content) Reason Comments Follow Up Migraines Reason Comments Neck Pain Reason Comments Insurance Authorization Aimovig 140MG/ML auto-injectors Reason Comments appointment instructions [facility]- 11/16/2022 @ 1040amAppointment reminder call - LEFT MESSAGE - with directions to office and the # to call if they cannot keep this [phone] Reason Comments Follow Up Neck and shoulder pa in Reason Onset Date Comments Refill Request 11/23/2022 Reason Comments Insurance Authorization [employer] Reason Comments Insurance Authorization Cbuk[employer]Gvwosj-H [employer] Reason Comments Insurance Authorization Lnuucnm-Vmniuu-N rime [employer] Reason Comments Follow Up Care Teams (unrecognized sec tion and content) Team Status: Active Member Role Status Dates Anand Garcia DO Primary Care Provider Active Team Status: Inactive Member Role Status Dates Anand Garcia DO Primary Care Provider, Attending Pro vider Active Polysomnographic Technologist Relationship Specialty Start Date End Date Anand Garcia DO [address] [place] [address] PCP - General Family Medicine 07/02/15 Polysomnographic Technologist Relationship Specialty Start Date End Date Anand Garcia, DO [address] [place] [address] [facility] - [facility] 07/02/15 Polysomnographic Technologist Relationship Specialty Start Date End Date Anand Garcia, DO [address] [place] [phone] PCP - [facility] 07/02/15 Polysomnographic Technologist Relationship Specialty Start Date End Date Anand Garcia, DO [address] [place] [phone] PCP - [facility] 07/02/15 Polysomnographic Technologist Relationship Specialty Start Date End Date Anand Garcia, DO [address] [place] [phone] PCP - [facility] 07/02/15 Polysomnographic Technologist Relationship Specialty Start Date End Date Anand Garcia, DO [address] [place] [address] PCP - [facility] 07/02/15 Polysomnographic Technologist Relationship Specialty Start Date End Date Anand Garcia DO [address] [place] [phone] PCP - [facility] 07/02/15 Polysomnographic Technologist Relationship Specialty Start Date End Date Anand Garcia DO [address] [place] [phone] PCP - [facility] 07/02/15 Polysomnographic Technologist Relationship Specialty Start Date End Date Anand Garcia DO [address] [place] [address] PCP - [facility] 07/02/15 Polysomnographic Technologist Relationship Specialty Start Date End Date Anand Garcia DO [address] [place] [address] PCP - General Family Medicine 07/02/15 Polysomnographic Technologist Relationship Specialty Start Date End Date Anand Garcia DO [address] [place] [address] PCP - General Family Medicine 07/02/15 [...] or prosecute any alcohol or drug abuse patient.[facility] [place] the event this information is protected by the Federal Confidentiality of Alcohol and Drug Abuse Patient Records regulations: The Federal rules restrict any use of the information to criminally investigate or prosecute any alcohol or drug abuse patient.[facility] [place] the event this information is protected by the Federal Confidentiality of Alcohol and Drug Abuse Patient Records regulations: The Federal rules restrict any use of the information to criminally investigate or prosecute any alcohol or drug abuse patient.[facility] [place] the event this information is protected by the Federal Confidentiality of Alcohol and Drug Abuse Patient Records regulations: The Federal rules restrict any use of the information to criminally investigate or prosecute any alcohol or drug abuse patient.[facility] [place] the event this information is protected by the Federal Confidentiality of Alcohol and Drug Abuse Patient Records regulations: The Federal rules restrict any use of the information to criminally investigate or prosecute any alcohol or drug abuse patient.[facility] [place] the event this information is protected by the Federal Confidentiality of Alcohol and Drug Abuse Patient Records regulations: The Federal rules restrict any use of the information to criminally investigate or prosecute any alcohol or drug abuse patient.[facility] [place]In the event this information is protected by the Federal Confidentiality of Alcohol and Drug Abuse Patient Records regulations: The Federal rules restrict any use of the information to criminally investigate or prosecute any alcohol or drug abuse patient.[facility] [place]In the event this information is protected by the Federal Confidentiality of Alcohol and Drug Abuse Patient Records regulations: The Federal rules restrict any use of the information to criminally investigate or prosecute any alcohol or drug abuse patient.[facility] [place]In the event this information is protected by the Federal Confidentiality of Alcohol and Drug Abuse Patient Records regulations: The Federal rules restrict any use of the information to criminally investigate or prosecute any alcohol or drug abuse patient.[facility] [place]In the event this information is protected by the Federal Confidentiality of Alcohol and Drug Abuse Patient Records regulations: The Federal rules restrict any use of the information to criminally investigate or prosecute any alcohol or drug abuse patient.[facility] [place]In the event this information is protected by the Federal Confidentiality of Alcohol and Drug Abuse Patient Records regulations: The Federal rules restrict any use of the information to criminally investigate or prosecute any alcohol or drug abuse patient.[facility] [place] the event this information is protected by the Federal Confidentiality of Alcohol and Drug Abuse Patient Records regulations: The Federal rules restrict any use of the information to criminally investigate or prosecute any alcohol or drug abuse patient.[facility] [place]In the event this information is protected by the Federal Confidentiality of Alcohol and Drug Abuse Patient Records regulations: The Federal rules restrict any use of the information to criminally investigate or prosecute any alcohol or drug abuse patient.[facility] [place]In the event this information is protected by the Federal Confidentiality of Alcohol and Drug Abuse Patient Records regulations: The Federal rules restrict any use of the information to criminally investigate or prosecute any alcohol or drug abuse patient.[facility] FOR RECORDS PERTAINING TO PATIENTS WHO ARE [...] BE BASED ON THE PRIMARY CLINICAL RECORDS. [facility]. provides no warranty or guarantee of the accuracy or completeness of information in this document.
[2024-06-03 09:04] LABS: Basophils Absolute Auto 0.1 10^3/uL (0.0-0.1); Basophils Percent Auto 0.7 % (0.2-2.0); Hematocrit 36.6 % (36.0-48.0); Hemoglobin 12.5 g/dL (12.0-16.0); Immature Granulocytes Abs Auto 0.01 10^3/uL (0.00-0.03); Immature Granulocytes Pct Auto 0.1 % (0.0-0.5); Lymphocytes Absolute Auto 2.3 10^3/uL (1.2-3.8); Lymphocytes Percent Auto 33.5 % (20.5-60.0); Mean Corpuscular HGB Conc 34.2 g/dL (29.9-35.2); Mean Corpuscular Hemoglobin 30.7 pg (26.7-34.0); Mean Corpuscular Volume 89.9 fL (81.0-99.0); Mean Platelet Volume 10.3 fL (9.5-13.5); Monocytes Absolute Auto 0.5 10^3/uL (0.3-0.8); Monocytes Percent Auto 7.3 % (1.7-12.0); Neutrophils Absolute Auto 4.1 10^3/uL (1.4-6.5); Neutrophils Percent Auto 58.4 % (43.0-75.0); Platelet Count 266 10^3/uL (150-450); Red Blood Count 4.07 10^6/uL (4.20-5.40); Red Cell Distribution Width 12.2 % (11.0-15.0)
[2024-06-03 09:37] LABS: Estimated Average Glucose 103 mg/dL; Glycohemoglobin A1C 5.2 % (4.5-6.2)
[2024-06-03 09:48] LABS: Alanine Aminotransferase 17 U/L (14-59); Albumin Globulin Ratio 1.2; Albumin Level 3.5 g/dL (3.4-5.0); Alkaline Phosphatase 52 U/L (46-116); Anion Gap 13.3; Aspartate Amino Transferase 9 U/L (15-37); BUN Creatinine Ratio 19.3; Bilirubin Total 0.6 mg/dL (0.2-1.0); Calcium 8.9 mg/dL (8.5-10.1); Carbon Dioxide 26.6 mmol/L (21.0-32.0); Chloride 107 mmol/L (98-107); Chol HDL Ratio 3.9; Cholesterol 172 mg/dL (<=200); Estimated GFR (African America >60 (>=60); Estimated GFR (Non-African Ame 52 (>=60); Glucose 105 mg/dL (74-106); HDL Cholesterol 44 mg/dL (40-60); Potassium 3.9 mmol/L (3.5-5.1); Sodium 143 mmol/L (136-145); Thyroid Stimulating Hormone 1.566 uIU/mL (0.358-3.740); Total Protein 6.5 g/dL (6.4-8.2); Triglycerides 166 mg/dL (<=150); VLDL CHOLESTEROL 33.2 mg/dL
== END 2024-06-03 08:31 | disposition home or self-care (01) ==
LOC: LAB 08:32
PROVIDERS: PCP Family Medicine; Visit Provider Family Medicine
DX: N18.9 Chronic kidney disease, unspecified (principal); Z79.899 Other long term (current) 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; E78.1 Pure hyperglyceridemia; R63.5 Abnormal weight gain
CPT/HCPCS: 36415; 80053; 80061; 83036; 84443; 85025

== ENCOUNTER 2024-06-22 14:37 | Outpatient (OUT) | payer BC, SELFPAY ==
--- NOTE | 2024-06-22 14:43 | XR_ITS ---
The [address] [address] Patient Name: RODRIGO LIRA MRN: [id number] date: 1965 Sex: F Assigned Patient Location: [facility] Current Patient Location: [facility] Accession/Order Number: [id number] Exam Date: 06/22/2024 15:00 Report Date: 06/22/2024 21:08 At the request of: ANAND GARCIA Procedure: XR shoulder LT min 2V EXAM: XR shoulder LT min 2V HISTORY: Left Shoulder Pain COMPARISON: None. TECHNIQUE: 3 views of left shoulder were obtained. FINDINGS: There is no evidence of an acute fracture or dislocation. There is mild to moderate narrowing of the acromioclavicular joint. The glenohumeral joint is intact. The acromiohumeral interval is intact. No abnormality is identified in the soft tissues. XR/XR shoulder LT min 2V IMPRESSION: Mild degenerative changes at the acromioclavicular joint. There is no evidence of a fracture or dislocation. Comparison with a previous study may be helpful in determining the chronicity of these findings. Electronically authenticated by: CELESTINO RUSSO Date: 06/22/2024 21:08
== END 2024-06-22 14:38 | disposition home or self-care (01) ==
LOC: RAD 14:38
PROVIDERS: PCP Family Medicine; Visit Provider Family Medicine
DX: M25.512 Pain in left shoulder (principal)
CPT/HCPCS: 73030

== ENCOUNTER 2024-10-21 06:52 | Outpatient (OUT) | payer BC, SELFPAY ==
[2024-10-21 07:17] LABS: Basophils Percent Auto 0.3 % (0.2-2.0); Hematocrit 38.5 % (36.0-48.0); Hemoglobin 12.8 g/dL (12.0-16.0); Immature Granulocytes Abs Auto 0.02 10^3/uL (0.00-0.03); Immature Granulocytes Pct Auto 0.2 % (0.0-0.5); Lymphocytes Absolute Auto 2.8 10^3/uL (1.2-3.8); Lymphocytes Percent Auto 24.1 % (20.5-60.0); Mean Corpuscular HGB Conc 33.2 g/dL (29.9-35.2); Mean Corpuscular Hemoglobin 30.3 pg (26.7-34.0); Mean Corpuscular Volume 91.2 fL (81.0-99.0); Mean Platelet Volume 10.5 fL (9.5-13.5); Monocytes Absolute Auto 0.7 10^3/uL (0.3-0.8); Monocytes Percent Auto 6.1 % (1.7-12.0); Neutrophils Percent Auto 69.3 % (43.0-75.0); Platelet Count 311 10^3/uL (150-450); Red Blood Count 4.22 10^6/uL (4.20-5.40); Red Cell Distribution Width 12.5 % (11.0-15.0); White Blood Count 11.5 10^3/uL (4.0-11.0)
[2024-10-21 08:47] LABS: Estimated Average Glucose 114 mg/dL; Glycohemoglobin A1C 5.6 % (4.5-6.2)
[2024-10-21 08:49] LABS: Alanine Aminotransferase 20 U/L (14-59); Albumin Globulin Ratio 1.2; Albumin Level 3.9 g/dL (3.4-5.0); Alkaline Phosphatase 46 U/L (46-116); Anion Gap 11.5; Aspartate Amino Transferase 18 U/L (15-37); Bilirubin Total 0.7 mg/dL (0.2-1.0); Calcium 9.2 mg/dL (8.5-10.1); Carbon Dioxide 29.7 mmol/L (21.0-32.0); Chloride 107 mmol/L (98-107); Chol HDL Ratio 3.8; Cholesterol 196 mg/dL (<=200); Estimated GFR (African America >60 (>=60 mL/min/1.73m^2); Estimated GFR (Non-African Ame 55 (>=60 mL/min/1.73m^2); Globulin 3.3 g/dL; Glucose 107 mg/dL (74-106); HDL Cholesterol 52 mg/dL (40-60); LDL Cholesterol Calculated 114.2 mg/dL; Potassium 4.2 mmol/L (3.5-5.1); Sodium 144 mmol/L (136-145); Total Protein 7.2 g/dL (6.4-8.2); Triglycerides 149 mg/dL (<=150); VLDL CHOLESTEROL 29.8 mg/dL
== END 2024-10-21 06:53 | disposition home or self-care (01) ==
PROVIDERS: PCP Family Medicine; Visit Provider Family Medicine
DX: Z79.899 Other long term (current) 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 (principal); E78.5 Hyperlipidemia, unspecified; R73.9 Hyperglycemia, unspecified
CPT/HCPCS: 36415; 80053; 80061; 83036; 85025

== ENCOUNTER 2024-10-21 06:57 | Outpatient (OUT) | payer BC, SELFPAY ==
[2024-10-21 07:25] LABS: Bilirubin Urine NEGATIVE (NEGATIVE); Blood Urine NEGATIVE (NEGATIVE); Clarity Urine CLEAR (CLEAR); Color Urine LT. YELLOW (YELLOW); Glucose Urine UA NEGATIVE (NEGATIVE); Ketones Urine 15 mg/dL (NEGATIVE); Leukocyte Esterase Urine TRACE (NEGATIVE); Nitrite Urine NEGATIVE (NEGATIVE); Protein Urine NEGATIVE (NEG/TRACE); Specific Gravity Urine 1.025 (1.005-1.025); Urobilinogen Urine 0.2 EU/dL (0.2-1.0)
[2024-10-21 08:13] LABS: Creatinine Urine Random 119.04 mg/dL (20.00-300.00); Total Protein Urine Random 12.3 mg/dL (<=11.9)
[2024-10-21 08:46] LABS: Albumin Level 3.9 g/dL (3.4-5.0); Phosphorus 3.5 mg/dL (2.6-4.7); Uric Acid 3.2 mg/dL (2.6-6.0)
[2024-10-21 09:10] LABS: Bacteria Urine NONE SEEN #/HPF (NONE SEEN); Mucus Urine NONE SEEN (NONE SEEN); RBC Urine NONE SEEN #/HPF (0-2); Squamous Epithelial Cell Urine FEW #/LPF (NONE/RARE); WBC Urine 0-2 #/HPF (NONE SEEN)
[2024-10-23 14:07] LABS: PTH, Intact 22 pg/mL (15-65)
== END 2024-10-21 06:58 | disposition home or self-care (01) ==
LOC: LAB 06:59
PROVIDERS: PCP Family Medicine; Visit Provider Internal Medicine
DX: Z79.899 Other long term (current) 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 (principal); E78.5 Hyperlipidemia, unspecified; R73.9 Hyperglycemia, unspecified; N25.81 Secondary hyperparathyroidism of renal origin; E83.42 Hypomagnesemia; N18.30 Chronic kidney disease, stage 3 unspecified; I12.9 Hypertensive chronic kidney disease with stage 1 through stage 4 chronic kidney disease, or unspecified chronic kidney disease; N26.1 Atrophy of kidney (terminal)
CPT/HCPCS: 36415; 80053; 80061; 81001; 82042; 82306; 82570; 83036; 83735; 83970; 84100; 84156; 84550; 85025; 85027

== ENCOUNTER 2025-06-16 08:18 | Outpatient (OUT) | payer BC, SELFPAY ==
--- OUTSIDE RECORDS SUMMARY | 2025-06-16 08:22 | XMS_ITS | Encounter Summary ---
Author Organization [facility] Address [facility] [place] [address] Care Team Providers Care Assistant Community Manager Name Role Phone Romie Rdz DO Primary Care Provider [phone] Source Comments In the event this information is protected by the Federal Confidentiality of Alcohol and Drug AbusePatient Records regulations: The Federal rules restrict any use of the information to criminally investigate or prosecute any alcohol or drug abuse patient.[facility] Encounter Details Date Type Department Care Team (Late st Contact Info) Description 11/03/2022 Patient Msg Neurology [address] [address] Rodrick Chatterjee DO [address] [place] [address] Appointment Request Social History Tobacco Use Types Packs/Day Years Used Date Smoking Tobacco: Never Smokeless Tobacco: Never Alcohol Use Standard Drinks/Week Comments Yes 0 (1 standard drink = 0.6 oz pur e alcohol) Infrequent PHQ-2 Answer Date Recorded PHQ-2 score 3 09/21/2022 Area Deprivation Index Answer Date Giacomo rded National Score (1-100), lower number is lower ri sk Not on file 10/09/2020 State Score (1-10), lower number is lower risk N ot on file 10/09/2020 Data from: https://www.neighborhoodatlas.medicine.[facility].edu/. Last address used for calculation Not on file 10/09/2020 Comments No Sex and Gender Information Value Date Recorded Sex Assigned at Not on file Legal Sex Female 9:34 AM EDT Gender Identity Not on file Sexual Orientation Not on file documented as of this encounter Plan of Treatment Upcoming Encounters Date Type Department Care Team (Late st Contact Info) Description 10/10/2025 1:00 PM EST Office Visit Neurology [address] [address] Simona Martinez APRN.CIGAR WRAPPER [address] [place] [address] FOLLOW UP 6 MONTHS documented as of this encounter Visit Diagnoses Not on filedocumented in this encounter Care Teams Assistant Community Manager Relationship Specialty Start Date End Date Romie Rdz DO [address] [place] [address] PCP - General Family Medicine 07/02/15 documented as of this encounter
--- OUTSIDE RECORDS SUMMARY | 2025-06-16 08:22 | XMS_ITS | Encounter Summary ---
Author Organization [facility] Address [address] [place] [address] Care Team Providers Care Steaming Cabinet Tender Name Role Phone Romie Rdz DO Primary Care Provider [phone] Source Comments In the event this information is protected by the Federal Confidentiality of Alcohol and Drug AbusePatient Records regulations: The Federal rules restrict any use of the information to criminally investigate or prosecute any alcohol or drug abuse patient.[facility] Encounter Details Date Type Department Care Team (Late st Contact Info) Description 08/05/2022 Get Medical Advice Neurology [facility] [place] [id number] [place] [address] [place] [address] Prior authorization Social History Tobacco Use Types Packs/Day Years Used Date Smoking Tobacco: Never Smokeless Tobacco: Never Alcohol Use Standard Drinks/Week Comments Yes 0 (1 standard drink = 0.6 oz pur e alcohol) Infrequent PHQ-2 Answer Date Recorded PHQ-2 score 2 07/17/2022 Area Deprivation Index Answer Date Giacomo rded National Score (1-100), lower number is lower ri sk Not on file 10/09/2020 State Score (1-10), lower number is lower risk N ot on file 10/09/2020 Data from: https://www.neighborhoodatlas.medicine.[facility].edu/. Last address used for calculation Not on file 10/09/2020 Comments No Sex and Gender Information Value Date Recorded Sex Assigned at Not on file Legal Sex Female 9:34 AM EDT Gender Identity Not on file Sexual Orientation Not on file COVID-19 Exposure Response Date Recorded In the last 10 days, have yo u been in contact with someone who was confirmed or suspected to have Coronavirus/COVID-19? No / Unsure 07/28/2022 7:37 AM EDT documented as of this encounter Plan of Treatment Upcoming Encounters Date Type Department Care Team (Late st Contact Info) Description 10/10/2025 1:00 PM EST Office Visit Neurology [address] [place] [address] Simona Martinez, FERRY BOAT CAPTAIN.PLATE DRYING MACHINE TENDER [address] [place] [address] FOLLOW UP 6 MONTHS documented as of this encounter Visit Diagnoses Not on filedocumented in this encounter Care Teams Steaming Cabinet Tender Relationship Specialty Start Date End Date Romie Rdz DO [address] [place] [address] PCP - General Family Medicine 07/02/15 documented as of this encounter
--- OUTSIDE RECORDS SUMMARY | 2025-06-16 08:22 | XMS_ITS | Encounter Summary ---
Author Organization [facility] Address [address] [place] [address] Care Team Providers Care Dehydration Plant Operator Name Role Phone Romie Rdz DO Primary Care Provider [phone] Source Comments In the event this information is protected by the Federal Confidentiality of Alcohol and Drug AbusePatient Records regulations: The Federal rules restrict any use of the information to criminally investigate or prosecute any alcohol or drug abuse patient.[facility] Encounter Details Date Type Department Care Team (Late st Contact Info) Description 01/05/2022 Get Medical Advice Neurology [facility] [id number] Rodrick Chatterjee DO [address] [place] [address] Need a new medication Social History Tobacco Use Types Packs/Day Years Used Date Smoking Tobacco: Never Smokeless Tobacco: Never Alcohol Use Standard Drinks/Week Comments Yes 0 (1 standard drink = 0.6 oz pur e alcohol) Infrequent PHQ-2 Answer Date Recorded PHQ-2 score 2 07/12/2021 Area Deprivation Index Answer Date Giacomo rded National Score (1-100), lower number is lower ri sk Not on file 10/09/2020 State Score (1-10), lower number is lower risk N ot on file 10/09/2020 Data from: https://www.neighborhoodatlas.medicine.[facility].edu/. Last address used for calculation Not [...] 1:00 PM EST Office Visit Neurology [address] [address] Simona Martinez APRN.CLEAT LAYER [address] [place] [address] FOLLOW UP 6 MONTHS documented as of this encounter Visit Diagnoses Not on filedocumented in this encounter Care Teams Dehydration Plant Operator Relationship Specialty Start Date End Date Romie Rdz DO [address] [place] [address] PCP - General Family Medicine 07/02/15 documented as of this encounter
--- OUTSIDE RECORDS SUMMARY | 2025-06-16 08:22 | XMS_ITS | Encounter Summary ---
Author Organization [facility] Address [address] [place] [address] Care Team Providers Care Package Reinspector Name Role Phone Romie Rdz DO Primary Care Provider [phone] Source Comments In the event this information is protected by the Federal Confidentiality of Alcohol and Drug AbusePatient Records regulations: The Federal rules restrict any use of the information to criminally investigate or prosecute any alcohol or drug abuse patient.[facility] Encounter Details Date Type Department Care Team (Late st Contact Info) Description 10/01/2016 Get Medical Advice Neurology [address] [place] [id number] Rodrick Chatterjee, DO [address] [place] [address] RE: RE: Medication Question (Not Renewal) Social History Tobacco Use Types Packs/Day Years Used Date Smoking Tobacco: Never Alcohol Use Standard Drinks/Week Comments Yes 0 (1 standard drink = 0.6 oz pur e alcohol) Infrequent Comments Unknown Sex and Gender Information Value Date Recorded Sex Assigned at Not on file Legal Sex Female 9:34 AM EDT Gender Identity Not on file Sexual Orientation Not on file documented as of this encounter Plan of Treatment Upcoming Encounters Date Type Department Care Team (Late st Contact Info) Description 10/10/2025 1:00 PM EST Office Visit Neurology [address] [address] Simona Martinez APRN.FINISH ROLLS OPERATOR [address] [place] [address] FOLLOW UP 6 MONTHS documented as of this encounter Visit Diagnoses Not on filedocumented in this encounter Care Teams Package Reinspector Relationship Specialty Start Date End Date Romie Rdz DO [address] [place] [address] PCP - General Family Medicine 07/02/15 documented as of this encounter
--- OUTSIDE RECORDS SUMMARY | 2025-06-16 08:22 | XMS_ITS | Encounter Summary ---
Author Organization [facility] Address [address] [place] [address] Care Team Providers Care Professional Security Officer Name Role Phone Romie Rdz DO Primary Care Provider [phone] Source Comments In the event this information is protected by the Federal Confidentiality of Alcohol and Drug AbusePatient Records regulations: The Federal rules restrict any use of the information to criminally investigate or prosecute any alcohol or drug abuse patient.[facility] Encounter Details Date Type Department Care Team (Late st Contact Info) Description 12/20/[address] [address] Provider, [facility] Appointment change Social History Tobacco Use Types Packs/Day Years Used Date Smoking Tobacco: Never Smokeless Tobacco: Never Alcohol Use Standard Drinks/Week Comments Yes 0 (1 standard drink = 0.6 oz pur e alcohol) Infrequent PHQ-2 Answer Date Recorded PHQ-2 score 4 09/17/2020 Area Deprivation Index Answer Date Giacomo rded National Score (1-100), lower number is lower ri sk Not on file 10/09/2020 State Score (1-10), lower number is lower risk N ot on file 10/09/2020 Data from: https://www.[facility]/. Last address used for calculation Not on [...] 10/10/2025 1:00 PM EST Office Visit Neurology [facility] [phone] Simona Martinez APRN.RADIO CONTROL CRANE OPERATOR [address] [place] [address] FOLLOW UP 6 MONTHS documented as of this encounter Visit Diagnoses Not on filedocumented in this encounter Care Teams Professional Security Officer Relationship Specialty Start Date End Date Romie Rdz DO [address] [place] [address] PCP - General Family Medicine 07/02/15 documented as of this encounter
--- OUTSIDE RECORDS SUMMARY | 2025-06-16 08:22 | XMS_ITS | Encounter Summary ---
Author Organization [facility] Address [facility] [place] [address] Care Team Providers Care Compressor Operator Portable Name Role Phone Romie Rdz DO Primary Care Provider [phone] Source Comments In the event this information is protected by the Federal Confidentiality of Alcohol and Drug AbusePatient Records regulations: The Federal rules restrict any use of the information to criminally investigate or prosecute any alcohol or drug abuse patient.[facility] Encounter Details Date Type Department Care Team (Late st Contact Info) Description 09/29/2021 Get Medical Advice Neurology [facility] [address] Rodrick Chatterjee, DO [address] [place] [address] Prescription refill Social History Tobacco Use Types Packs/Day Years [...] N ot on file 10/09/2020 Data from: https://www.neighborhoodatlas.medicine.[facility].edu/. Last address used for calculation [...] 1:00 PM EST Office Visit Neurology [address] [facility] [address] [place], [place] [address] Simona Martinez APRN.PLASTICS TOOLING ENGINEER [address] [place] [address] FOLLOW UP 6 MONTHS documented as of this encounter Visit Diagnoses Not on filedocumented in this encounter Care Teams Compressor Operator Portable Relationship Specialty Start Date End Date Romie Rdz DO [address] [place] [address] PCP - General Family Medicine 07/02/15 documented as of this encounter
--- OUTSIDE RECORDS SUMMARY | 2025-06-16 08:22 | XMS_ITS | Encounter Summary ---
Author Organization [facility] Address [address] [place] [address] Care Team Providers Care Oil Refinery Operator Name Role Phone Romie Rdz DO Primary Care Provider [phone] Source Comments In the event this information is protected by the Federal Confidentiality of Alcohol and Drug AbusePatient Records regulations: The Federal rules restrict any use of the information to criminally investigate or prosecute any alcohol or drug abuse patient.[facility] Encounter Details Date Type Department Care Team (Late st Contact Info) Description 06/07/2025 Patient Msg [address] [address] Provider, Ccf Appointment cancellation Social History Tobacco Use Types Packs/Day Years Used Date Smoking Tobacco: Never Smokeless Tobacco: Never Alcohol Use Standard Drinks/Week Comments Yes 0 (1 standard drink = 0.6 oz pur e alcohol) Infrequent PHQ-2 Answer Date Recorded PHQ-2 score 1 03/28/2025 Area Deprivation Index Answer Date Giacomo rded National Score (1-100), lower number is lower ri sk 63 03/29/2024 State Score (1-10), lower number is lower risk 4 03/29/2024 Data from: https://www.neighborhoodatlas.medicine.[facility]/. Last address used for calculation [address] [place] [address] [address] 03/29/2024 Comments No Sex and Gender Information Value Date Recorded Sex Assigned at Not on file Legal Sex Female 9:34 AM EDT Gender Identity Not on file Sexual Orientation Not on file documented as of this encounter Plan of Treatment Upcoming Encounters Date Type Department Care Team (Late st Contact Info) Description 10/10/2025 1:00 PM EST Office Visit Neurology [address] [id number] Simona Martinez, GHISLAINE.SKIN SPECIALIST [address] [place] [address] FOLLOW UP 6 MONTHS documented as of this encounter Visit Diagnoses Not on filedocumented in this encounter Care Teams Oil Refinery Operator Relationship Specialty Start Date End Date Rmoie Rdz DO [address] [place] [address] PCP - General Family Medicine 07/02/15 documented as of this encounter
--- OUTSIDE RECORDS SUMMARY | 2025-06-16 08:22 | XMS_ITS | Encounter Summary ---
Author Organization [facility] Address [address] [place] [address] Care Team Providers Care Retail Field Supervisor Name Role Phone Romie Rdz DO Primary Care Provider [phone] Source Comments In the event this information is protected by the Federal Confidentiality of Alcohol and Drug AbusePatient Records regulations: The Federal rules restrict any use of the information to criminally investigate or prosecute any alcohol or drug abuse patient.[facility] Encounter Details Date Type Department Care Team (Late st Contact Info) Description 09/10/2023 Patient Msg Neurology [address] [place] [id number] Provider, Lata Paulino approval. Social History Tobacco Use Types Packs/Day Years Used Date Smoking Tobacco: Never Smokeless Tobacco: Never Alcohol Use Standard Drinks/Week Comments Yes 0 (1 standard drink = 0.6 oz pur e alcohol) Infrequent PHQ-2 Answer Date Recorded PHQ-2 score 1 07/14/2023 Area Deprivation Index Answer Date Giacomo rded National Score (1-100), lower number is lower ri sk Not on file 10/09/2020 State Score (1-10), lower number is lower risk N ot on file 10/09/2020 Data from: https://www.neighborhoodatlas.medicine.[facility]/. Last address used for calculation Not on [...] 10/10/2025 1:00 PM EST Office Visit Neurology [facility] [address] Simona Martinez APRN.LAST CODE STRIPER [address] [place] [address] FOLLOW UP 6 MONTHS documented as of this encounter Visit Diagnoses Not on filedocumented in this encounter Care Teams Retail Field Supervisor Relationship Specialty Start Date End Date Romie Rdz DO [address] [place] [address] PCP - General Family Medicine 07/02/15 documented as of this encounter
--- OUTSIDE RECORDS SUMMARY | 2025-06-16 08:22 | XMS_ITS | Encounter Summary ---
Author Organization [facility] Address [facility] [place] [address] Care Team Providers Care Aviation Boatswain'S Mate Name Role Phone Romie Rdz DO Primary Care Provider [phone] Source Comments In the event this information is protected by the Federal Confidentiality of Alcohol and Drug AbusePatient Records regulations: The Federal rules restrict any use of the information to criminally investigate or prosecute any alcohol or drug abuse patient.[facility] Encounter Details Date Type Department Care Team (Late st Contact Info) Description 12/17/2020 Get Medical Advice Neurology [address] [phone] Rodrick Chatterjee DO [address] [place], [place] [phone] RE: Non-Urgent Medical Question Social History Tobacco Use Types Packs/Day Years [...] N ot on file 10/09/2020 Data from: https://www.neighborhoodatlas.medicine.[facility].edu/. Last address used for calculation Not [...] 1:00 PM EST Office Visit Neurology [address] [facility] [address] [place], [place] 9[address] Simona Martinez APRN.CHEMISTRY TECHNICIAN [address] [place] [address] FOLLOW UP 6 MONTHS documented as of this encounter Visit Diagnoses Not on filedocumented in this encounter Care Teams Aviation Boatswain'S Mate Relationship Specialty Start Date End Date Romie Rdz DO [address] [place] [address] PCP - General Family Medicine 07/02/15 documented as of this encounter
--- OUTSIDE RECORDS SUMMARY | 2025-06-16 08:22 | XMS_ITS | Encounter Summary ---
Author Organization [facility] Address [address] [place] [address] Care Team Providers Care Office Machine Mechanic Name Role Phone Romie Rdz DO Primary Care Provider [phone] Source Comments In the event this information is protected by the Federal Confidentiality of Alcohol and Drug AbusePatient Records regulations: The Federal rules restrict any use of the information to criminally investigate or prosecute any alcohol or drug abuse patient.[facility] Encounter Details Date Type Department Care Team (Latest Contact Info) Description 09/21/2023 Get Medical Advice Neurology [facility] [place] [address]75[address] Rodrick Chatterjee, DO [address] [place] [address] Aimovig prescription needs approval Social History Tobacco Use Types Packs/Day Years [...] N ot on file 10/09/2020 Data from: https://www.neighborhoodatlas.medicine.[facility].edu/. Last address used for calculation Not [...] PM EST Office Visit Neurology [address] 983[address] Simona Martinez APRN.AIRPORT OPERATIONS OFFICER [address] [place] [address] FOLLOW UP 6 MONTHS documented as of this encounter Visit Diagnoses Not on filedocumented in this encounter Care Teams Office Machine Mechanic Relationship Specialty Start Date End Date Romie Rdz DO [address] [place] [address] PCP - General Family Medicine 07/02/15 documented as of this encounter
--- OUTSIDE RECORDS SUMMARY | 2025-06-16 08:23 | XMS_ITS | Encounter Summary ---
Author Organization [facility] Address [address] [place] [address] Care Team Providers Care Forensic Science Technician Name Role Phone Romie Rdz DO Primary Care Provider [phone] Source Comments In the event this information is protected by the Federal Confidentiality of Alcohol and Drug AbusePatient Records regulations: The Federal rules restrict any use of the information to criminally investigate or prosecute any alcohol or drug abuse patient.[facility] Encounter Details Date Type Department Care Team (Late st Contact Info) Description 07/16/2020 Get Medical Advice Neurology [address] [place] [phone] Rodrick Chatterjee, DO [address] [place] [address] RE: Medication Question (Not Renewal) Social History Tobacco Use Types Packs/Day Years Used Date Smoking Tobacco: Never Smokeless Tobacco: Never Alcohol Use Standard Drinks/Week Comments Yes 0 (1 standard drink = 0.6 oz pur e alcohol) Infrequent PHQ-2 Answer Date Recorded PHQ-2 Score 0 07/20/2020 Comments No Sex and Gender Information Value Date Recorded Sex Assigned at Not on file Legal Sex Female 9:34 AM EDT Gender Identity Not on file Sexual Orientation Not on file COVID-19 Exposure Response Date Recorded In the last month, have you been in contact with someone who was confirmed or suspected to have Coronavirus / COVID-19? No / Unsure 07/17/2020 2:53 PM EDT documented as of this encounter Plan of Treatment Upcoming Encounters Date Type Department Care Team (Late st Contact Info) Description 10/10/2025 1:00 PM EST Office Visit Neurology [address] [place] [phone] Simona Martinez, GHISLAINE.LOAN SERVICING SPECIALIST [address] [place] [address] FOLLOW UP 6 MONTHS documented as of this encounter Visit Diagnoses Not on filedocumented in this encounter Care Teams Forensic Science Technician Relationship Specialty Start Date End Date Romie Rdz DO [address] [place] [address] PCP - General Family Medicine 07/02/15 documented as of this encounter
--- OUTSIDE RECORDS SUMMARY | 2025-06-16 08:23 | XMS_ITS | Encounter Summary ---
Author Organization [facility] Address [address] [place] [address] Care Team Providers Care Lan/Wan Engineer Name Role Phone Romie Rdz DO Primary Care Provider [phone] Source Comments In the event this information is protected by the Federal Confidentiality of Alcohol and Drug AbusePatient Records regulations: The Federal rules restrict any use of the information to criminally investigate or prosecute any alcohol or drug abuse patient.[facility] Encounter Details Date Type Department Care Team (Latest Contact Info) Description 06/05/2024 Get Medical Advice Neurology [address] [place], [place] [address] Simona Martinez APRN.VARNISHING UNIT TOOL SETTER [address] [place] [address] Prior Authorization Needed Social History Tobacco Use Types Packs/Day Years Used Date Smoking Tobacco: Never Smokeless Tobacco: Never Alcohol Use Standard Drinks/Week Comments Yes 0 (1 standard drink = 0.6 oz pur e alcohol) Infrequent PHQ-2 Answer Date Recorded PHQ-2 score 2 03/22/2024 Area Deprivation Index Answer Date Giacomo rded National Score (1-100), lower number is lower [facility] 63 03/29/2024 State Score (1-10), lower number is lower risk 4 03/29/2024 Data from: https://www.neighborhoodatlas.medicine.[facility].edu/. Last address used for calculation [address] [place] [address] [address] 03/29/2024 Comments No Sex and Gender Information Value Date Recorded Sex Assigned at Not on file Legal Sex Female 9:34 AM EDT Gender Identity Not on file Sexual Orientation Not on file documented as of this encounter Miscellaneous Notes * Telephone Encounter - Evelyne Garcia - 06/07/2024 9:30 AM EDT Patient last seen on 03/29/24. documented in this encounter Plan of Treatment Upcoming Encounters Date Type Department Care Team (Late st Contact Info) Description 10/10/2025 1:00 PM EST Office Visit Neurology [address] [place] [address] Simona Martinez, GHISLAINE.VARNISHING UNIT TOOL SETTER [address] [place] [address] FOLLOW UP 6 MONTHS documented as of this encounter Visit Diagnoses Not on filedocumented in this encounter Care Teams Lan/Wan Engineer Relationship Specialty Start Date End Date Romie Rdz DO [address] [place] [address] PCP - General Family Medicine 07/02/15 documented as of this encounter
--- OUTSIDE RECORDS SUMMARY | 2025-06-16 08:23 | XMS_ITS | Clinical Summary ---
Author Organization [facility] Address [address] [place] [address] Care Team Providers Care Post Hole Digging Machine Operator Name Role Phone Romie Rdz DO Primary Care Provider [phone] Allergies Active Allergy Reactions Criticality Noted Date Comments Topiramate Mental Status Change 05/09/2018 Medications Ascorbic Acid 1,000 mg tablet Take 1,000 mg by mouth once daily. Active ONDANSETRON HCL (ZOFRAN ORAL) Take 4 mg by mouth as needed. Active CYANOCOBALAMIN, VITAMIN B-12, (VITAMIN B-12 ORAL) Take by mouth. Activ e scopolamine (TRANSDERM-SCOP) 1.5 mg (1 mg over 3 days) Apply 1 Patch as directed every 72 hours. APPLY 1 DISC BEHIND THE EAR AT LEAST 4 HOURS PRIOR TO EXPOSURE AND EVERY 3 DAYS NEEDED. 12 Patch 11 05/31/20 17 Active rosuvastatin (CRESTOR) 5 mg tablet Take 1 tablet by mouth every afternoon. 07/06/20 23 Active magnesium hydroxide (MAGNESIA ORAL) Take 400 mg by mouth once daily. Active atogepant (QULIPTA) 60 mg tablet Take 1 tablet (60 mg) by mouth once daily. 30 tablet 05/25/2025 8:31 AM EDT 06/09/20 24 025 Active rimegepant (NURTEC ODT) 75 mg disintegrating tablet Take 1 dissolvable tablet by mouth at migraine onset. Take only 1 tablet per 24 hours. 8 tablet 05/25/2025 8:31 AM EDT 10/04/20 24 Active propranolol ER (INDERAL LA) 80 mg 24 hr capsule Take 1 capsule by mouth once daily. 90 capsule 3 10/04/20 24 Active Active Problems Problem Noted Date Diagnosed Date Chronic migraine without aur a, intractable, without status migrainosus 11/26/2023 Status migrainosus 11/26/2023 Cervicalgia 07/24/2022 Migraine without aura and wi thout status migrainosus, not intractable 09/23/2020 Migraine with aura and witho ut status migrainosus, not intractable 09/23/2020 Intractable chronic migraine without aura and with status migrainosus 09/23/2020 Intractable chronic migraine without aura and without status migrainosus 12/27/2019 Chronic musculoskeletal pain 07/03/2016 Chronic daily headache 10/11/2015 Chronic migraine without aur a, with intractable migraine, so stated, with status migrainosus 10/11/2015 Medication overuse headache 10/11/2015 Chronic neck pain 10/11/2015 Bilateral occipital neuralgia 10/11/2015 Encounters Date Type Department Care Team Description 06/07/2025 Patient Msg [place] [address] Provider, Ccf Appointment cancellation 04/04/2025 4:00 PM EDT Office Visit Neurology [address] [place] [address] [address] [place] [address] Simona Martinez, GHISLAINE.EVENT AV OPERATOR Migraine without aura and without status migrainosus, not intractable (Primary Dx); Migraine with aura and without status migrainosus, not intractable 03/28/2025 Travel from Last 3 Months Family History Medical History Relation Comments Migraine [Other] Brother Migraine [Other] Daughter Migraine [Other] Mother Migraine [Other] Sister Relation Status Comments Brother Daughter Mother Sister Social History Tobacco Use Types Packs/Day Years Used Date Smoking Tobacco: Never Smokeless Tobacco: Never Tobacco Cessation:Counseling Given: Not Answered Alcohol Use Standard Drinks/Week Comments Yes 0 (1 standard drink = 0.6 oz pur e alcohol) Infrequent PHQ-2 Answer Date Recorded PHQ-2 score 1 03/28/2025 Area Deprivation Index Answer Date Giacomo rded National Score (1-100), lower number is lower ri sk 63 03/29/2024 State Score (1-10), lower number is lower risk 4 03/29/2024 Data from: https://www.neighborhoodatlas.medicine.[facility]/. Last address used for calculation [address] [place] [address] [address] 03/29/2024 Comments No Sex and Gender Information Value Date Recorded Sex Assigned at Not on file Legal Sex Female 9:34 AM EDT Gender Identity Not on file Sexual Orientation Not on file Last Filed Vital Signs Vital Sign Reading Time Taken Comments Blood Pressure 148/82 04/04/2025 3:53 PM EDT Pulse 74 10/04/2024 4:00 PM EST Temperature 36.2 C (97.1 F) 07/28/2022 7:49 AM EDT Respiratory Rate 16 05/31/2017 3:35 PM EDT Oxygen Saturation 100% 07/28/2022 7:49 AM EDT Inhaled Oxygen Concentration - - Weight 68 kg (150 lb) 04/04/2025 3:53 PM EDT Height 170.2 cm (5' 7 ) 04/04/2025 3:53 PM EDT Body Mass Index 23.49 04/04/2025 3:53 PM EDT Plan of Treatment Upcoming Encounters Date Type Department Care Team (Late st Contact Info) Description 10/10/2025 1:00 PM EST Office Visit Neurology 3574 [facility] [address] [place] [address] Simona Martinez APRN.EVENT AV OPERATOR [address] [place] [address] FOLLOW UP 6 MONTHS Health Maintenance Due Date Last Done Comments Anxiety Screening 1985 Depression Screening 1985 HIV Screening 1985 Hepatitis C Screening 1985 DTaP,Tdap,Td Vaccine (1 - Tdap) 1986 Hepatitis B Vaccine (1 of 3 - 19+ 3-dose series) 05/29 Cervical Cancer Screening [address] M[address] Colonography 2012 Cologuard (FIT-DNA) 2012 Colonoscopy 2012 Colorectal Cancer Screening 2012 Diabetes Screening 2012 Fecal Occult Blood 2012 Lipid Screening 2012 Sigmoidoscopy 2012 Pneumococcal Vaccine: 50+ (1 of 1 - PCV) 2017 Shingrix Vaccine (1 of 2) 2017 Influenza Vaccine (#1) 2025 Insurance BLUE CARD PPO OOS Care Teams Post Hole Digging Machine Operator Relationship Specialty Start Date End Date Romie Rdz DO [address] [place] [phone] PCP - General Family Medicine 07/02/15
--- OUTSIDE RECORDS SUMMARY | 2025-06-16 08:23 | XMS_ITS | Clinical Summary ---
Author Organization [facility] Address [address] [facility], [address] [place] [address] Care Team Providers Care Academic Advisement Director Name Role Phone Romie Rdz DO Primary Care Provider Unavail able Allergies Active Allergy Reactions Criticality Noted Date Comments Sulfamethoxazole-Trimethoprim 2019 Medications diclofenac (VOLTAREN) 50 MG EC tablet Take 1 tablet by mouth 3 times daily (with meals) 90 tablet 06/28/2020 Active Family History Medical History Relation Name Comments Cancer Mother Diabetes Mother High Blood Pressure Mother Relation Name Status Comments Mother Social History Tobacco Use Types Packs/Day Years Used Date Smoking Tobacco: Never Assessed Smokeless Tobacco: Never Comments Unknown Sex and Gender Information Value Date Recorded Sex Assigned at Not on file Legal Sex Female 2:42 PM EST Gender Identity Not on file Sexual Orientation Not on file Last Filed Vital Signs Vital Sign Reading Time Taken Comments Blood Pressure - - Pulse - - Temperature 36.1 C (96.9 F) 06/28/2020 9:29 AM EDT Respiratory Rate - - Oxygen Saturation - - Inhaled Oxygen Concentration - - Weight 78 kg (172 lb) 06/28/2020 9:29 AM EDT Height 170.2 cm (5' 7 ) 06/28/2020 9:29 AM EDT Body Mass Index 26.94 06/28/2020 9:29 AM EDT Plan of Treatment Not on file Insurance BCBS OUT OF STATE Care Teams Academic Advisement Director Relationship Specialty Start Date End Date Romie Rdz DO PCP - General Family Medicine 06/28/20
--- OUTSIDE RECORDS SUMMARY | 2025-06-16 08:23 | XMS_ITS | Encounter Summary ---
Author Organization [facility] Address [address] [place] [address] Care Team Providers Care Steward Racetrack Name Role Phone Romie Rdz DO Primary Care Provider [phone] Source Comments In the event this information is protected by the Federal Confidentiality of Alcohol and Drug AbusePatient Records regulations: The Federal rules restrict any use of the information to criminally investigate or prosecute any alcohol or drug abuse patient.[facility] Encounter Details Date Type Department Care Team (Late st Contact Info) Description 09/26/2018 Get Medical Advice Neurology [address] [place] [id number] Rodrick Chatterjee, DO [address] [place] [address] RE: Non-Urgent Medical Question Social History Tobacco Use Types Packs/Day Years Used Date Smoking Tobacco: Never Smokeless Tobacco: Never Alcohol Use Standard Drinks/Week Comments Yes 0 (1 standard drink = 0.6 oz pur e alcohol) Infrequent Comments No Sex and Gender Information Value Date Recorded Sex Assigned at Not on file Legal Sex Female 9:34 AM EDT Gender Identity Not on file Sexual Orientation Not on file documented as of this encounter Plan of Treatment Upcoming Encounters Date Type Department Care Team (Late st Contact Info) Description 10/10/2025 1:00 PM EST Office Visit Neurology [address] [address] Simona Martinez APRN.PROGRAM SUPERVISOR [address] [place] [address] FOLLOW UP 6 MONTHS documented as of this encounter Visit Diagnoses Not on filedocumented in this encounter Care Teams Steward Racetrack Relationship Specialty Start Date End Date Romie Rdz DO [address] [place] [address] PCP - General Family Medicine 07/02/15 documented as of this encounter
--- OUTSIDE RECORDS SUMMARY | 2025-06-16 08:23 | XMS_ITS | Encounter Summary ---
Author Organization [facility] Address [address] [place] [address] Care Team Providers Care Refrigeration Technician Name Role Phone Romie Rdz DO Primary Care Provider [phone] Source Comments In the event this information is protected by the Federal Confidentiality of Alcohol and Drug AbusePatient Records regulations: The Federal rules restrict any use of the information to criminally investigate or prosecute any alcohol or drug abuse patient.[facility] Encounter Details Date Type Department Care Team (Late st Contact Info) Description 07/06/2024 Patient Msg [address] [place] [address] [place] [address] Provider, Ccf CNR Virtual Shared Medical Appointment [facility] - July 2024 Social History Tobacco Use Types Packs/Day Years [...] is lower risk 4 03/29/2024 Data from: https://www.neighborhoodatlas.medicine.[facility].edu/. Last address used for calculation [address] [place] [address] [address] 03/29/2024 Comments No Sex and Gender Information Value Date Recorded Sex Assigned at Not on file Legal Sex Female 9:34 AM EDT Gender Identity Not on file Sexual Orientation Not on file documented as of this encounter Plan of Treatment Upcoming Encounters Date Type Department Care Team (Late st Contact Info) Description 10/10/2025 1:00 PM EST Office Visit Neurology [address] [place] [address] Simona Martinez APRN.BIT AND SHANK DEPARTMENT SUPERVISOR [address] [place] [address] FOLLOW UP 6 MONTHS documented as of this encounter Visit Diagnoses Not on filedocumented in this encounter Care Teams Refrigeration Technician Relationship Specialty Start Date End Date Romie Rdz DO [address] [place] [address] PCP - General Family Medicine 07/02/15 documented as of this encounter
--- OUTSIDE RECORDS SUMMARY | 2025-06-16 08:23 | XMS_ITS | Encounter Summary ---
Author Organization [facility] Address [address] [place] [address] Care Team Providers Care Front Sight Attacher Name Role Phone Romie Rdz DO Primary Care Provider [phone] Source Comments In the event this information is protected by the Federal Confidentiality of Alcohol and Drug AbusePatient Records regulations: The Federal rules restrict any use of the information to criminally investigate or prosecute any alcohol or drug abuse patient.[facility] Encounter Details Date Type Department Care Team (Late st Contact Info) Description 06/28/2019 Get Medical Advice Neurology [address] [place] [phone] Rodrick Chatterjee DO [address] [place] [address] RE: Visit Follow Up Question Social History Tobacco Use Types Packs/Day [...] 1:00 PM EST Office Visit Neurology [address] [address] Simona Martinez APRN.MACHINE PECAN GATHERER [address] [place] [address] FOLLOW UP 6 MONTHS documented as of this encounter Visit Diagnoses Not on filedocumented in this encounter Care Teams Front Sight Attacher Relationship Specialty Start Date End Date Romie Rdz DO [address] [place] [address] PCP - General Family Medicine 07/02/15 documented as of this encounter
--- OUTSIDE RECORDS SUMMARY | 2025-06-16 08:23 | XMS_ITS | Encounter Summary ---
Author Organization [facility] Address [address] [place] [address] Care Team Providers Care College Or University Department Head Name Role Phone Romie Rdz DO Primary Care Provider Source Comments In the event this information is protected by the Federal Confidentiality of Alcohol and Drug AbusePatient Records regulations: The Federal rules restrict any use of the information to criminally investigate or prosecute any alcohol or drug abuse patient.[facility] Encounter Details Date Type Department Care Team (Late st Contact Info) Description 11/07/2015 Patient Msg Medical Records [address] [place] [address] Provider, [facility] Social History Tobacco Use Types Packs/Day Years [...] Encounters Date Type Department Care Team (Late Contact Info) Description 10/10/2025 1:00 PM EST Office Visit Neurology [address] [place] [address] Simona Martinez, GHISLAINE.BILINGUAL CUSTOMER SERVICE SPECIALIST [address] [address] FOLLOW UP 6 MONTHS documented as of this encounter Visit Diagnoses Not on filedocumented in this encounter Care Teams College Or University Department Head Relationship Specialty Start Date End Date Romie Rdz DO [address] [place] [address] PCP - General Family Medicine 07/02/15 documented as of this encounter
--- OUTSIDE RECORDS SUMMARY | 2025-06-16 08:23 | XMS_ITS | Encounter Summary ---
Author Organization [facility] Address [address] [place] [address] Care Team Providers Care Senior Software Systems Engineer Name Role Phone Romie Rdz DO Primary Care Provider [phone] Source Comments In the event this information is protected by the Federal Confidentiality of Alcohol and Drug AbusePatient Records regulations: The Federal rules restrict any use of the information to criminally investigate or prosecute any alcohol or drug abuse patient.[facility] Encounter Details Date Type Department Care Team (Late st Contact Info) Description 08/09/2018 Patient Msg Neurology [address] [place] [id number] Rodrick Chatterjee, DO [address] [place] [address] RE: Appointment Cancellation Request Social History Tobacco Use Types Packs/Day [...] 1:00 PM EST Office Visit Neurology [address] [address] Simona Martinez APRN.SLAB GRINDER [address] [place] [address] FOLLOW UP 6 MONTHS documented as of this encounter Visit Diagnoses Not on filedocumented in this encounter Care Teams Senior Software Systems Engineer Relationship Specialty Start Date End Date Rmoie Rdz DO [address] [place] [address] PCP - General Family Medicine 07/02/15 documented as of this encounter
--- OUTSIDE RECORDS SUMMARY | 2025-06-16 08:23 | XMS_ITS | Encounter Summary ---
Author Organization [facility] Address [address] [place] [address] Care Team Providers Care Coil Winding Machines Set Up Mechanic Name Role Phone Romie Rdz DO Primary Care Provider [phone] Source Comments In the event this information is protected by the Federal Confidentiality of Alcohol and Drug AbusePatient Records regulations: The Federal rules restrict any use of the information to criminally investigate or prosecute any alcohol or drug abuse patient.[facility] Encounter Details Date Type Department Care Team (Late st Contact Info) Description 06/21/2018 Get Medical Advice Neurology [address] [place] [id number] Rodrick Chatterjee, DO [address] [place] [address] RE: Medication Question (Not Renewal) Social [...] 1:00 PM EST Office Visit Neurology [address] [address] Simona Martinez APRN.SINGLE END SEWER [address] [place] [address] FOLLOW UP 6 MONTHS documented as of this encounter Visit Diagnoses Not on filedocumented in this encounter Care Teams Coil Winding Machines Set Up Mechanic Relationship Specialty Start Date End Date Romie Rdz DO [address] [place] [address] PCP - General Family Medicine 07/02/15 documented as of this encounter
--- OUTSIDE RECORDS SUMMARY | 2025-06-16 08:23 | XMS_ITS | Encounter Summary ---
Author Organization [facility] Address [address] [place] [address] Care Team Providers Care Metal Shaping Machine Operator Name Role Phone Romie Rdz DO Primary Care Provider [phone] Source Comments In the event this information is protected by the Federal Confidentiality of Alcohol and Drug AbusePatient Records regulations: The Federal rules restrict any use of the information to criminally investigate or prosecute any alcohol or drug abuse patient.[facility] Encounter Details Date Type Department Care Team (Late st Contact Info) Description 07/25/2019 Get Medical Advice Neurology [address] [place] [address] Rodrick Chatterjee DO [address] [place] [address] Visit Follow Up Question Social History Tobacco [...] 1:00 PM EST Office Visit Neurology [address] [address] Simona Martinez APRN.STONECUTTER HAND [address] [place] [address] FOLLOW UP 6 MONTHS documented as of this encounter Visit Diagnoses Not on filedocumented in this encounter Care Teams Metal Shaping Machine Operator Relationship Specialty Start Date End Date Romie Rdz DO [address] [place] [address] PCP - General Family Medicine 07/02/15 documented as of this encounter
--- OUTSIDE RECORDS SUMMARY | 2025-06-16 08:23 | XMS_ITS | Encounter Summary ---
Author Organization [facility] Address [address] [place] [address] Care Team Providers Care Major Assembly Inspector Name Role Phone Romie Rdz DO Primary Care Provider [phone] Source Comments In the event this information is protected by the Federal Confidentiality of Alcohol and Drug AbusePatient Records regulations: The Federal rules restrict any use of the information to criminally investigate or prosecute any alcohol or drug abuse patient.[facility] Encounter Details Date Type Department Care Team (Late st Contact Info) Description 04/12/2018 Get Medical Advice Neurology [address] [place] [id number] Rodrick Chatterjee DO [address] [place] [address] RE: Upcoming Appointment Question Social History Tobacco Use Types Packs/Day [...] 1:00 PM EST Office Visit Neurology [address] [address] Simona Martinez APRN.SECOND MATE [address] [place] [address] FOLLOW UP 6 MONTHS documented as of this encounter Visit Diagnoses Not on filedocumented in this encounter Care Teams Major Assembly Inspector Relationship Specialty Start Date End Date Romie Rdz DO [address] [place] [address] PCP - General Family Medicine 07/02/15 documented as of this encounter
--- OUTSIDE RECORDS SUMMARY | 2025-06-16 08:23 | XMS_ITS | Encounter Summary ---
Author Organization [facility] Address [address] [place] [address] Care Team Providers Care Director Video Name Role Phone Romie Rdz DO Primary Care Provider Source Comments In the event this information is protected by the Federal Confidentiality of Alcohol and Drug AbusePatient Records regulations: The Federal rules restrict any use of the information to criminally investigate or prosecute any alcohol or drug abuse patient.[facility] Encounter Details Date Type Department Care Team (Late st Contact Info) Description 02/03/2018 Get Medical Advice Neurology [address] [place] [id number] Rodrick Chatterjee, DO [address] [place] [address] RE: Medication Question (Not Renewal) Social [...] encounter Miscellaneous Notes * Telephone Encounter - Nikita MejiaayanaOpal - 02/04/2018 12:02 PM EDT I believe this is a duplicate message. documented in this encounter Plan of Treatment Upcoming Encounters Date Type Department Care Team (Late st Contact Info) Description 10/10/2025 1:00 PM EST Office Visit Neurology [address] [address] Simona Martinez, INTERNAL RECRUITER.COIN BOX INSPECTOR [address] [place] [address] FOLLOW UP 6 MONTHS documented as of this encounter Visit Diagnoses Not on filedocumented in this encounter Care Teams Director Video Relationship Specialty Start Date End Date Romie Rdz DO [address] [place] [id number] PCP - General Family Medicine 07/02/15 documented as of this encounter
--- OUTSIDE RECORDS SUMMARY | 2025-06-16 08:23 | XMS_ITS | CCD ---
Author Organization [facility] Care Team Providers Care French Tutor Name Role Phone Anand Garcia Unavailable Dario Green II Unavailable [phone] Yemi, Marianne Unavailable DO Anand Garcia Primary Care Provider DO Anand Garcia Attending Provider Anand Garcia DO Primary Care Provider [phone] Anand Garcia DO Primary Care Provider [phone] DR ANAND GARCIA Consulting Unavailable GIRVIN, DR [...] ilable GIRVIN, DR MICHEL Primary Care Unavailable MCKAY, VIKA Consulting Unavailable PENSIERO, DR YANNICK Bravo Attending Unava ilable PENSIERO, DR YANNICK Bravo Consulting Unava ilable PENSIERO, DR YANNICK Bravo Admitting Unava ilable GIRVIN, DR MICHEL Primary Care Unavailable AGUBOSIMROMULO Consulting Unavailable MARIA DEL CARMEN, ALDAIR Consulting [...] GIRVIN, DR MICHEL Attending Unavailable WEST, DR MICHEL V Consulting Unavailable GIRVIN, DR MICHEL Primary Care Unavailable YEMI, MARIANNE Admitting Unavailable YEMI, MARIANNE Attending Unavailable YEMI, MARIANNE Consulting Unavailable GIRVIN, DR MICHEL Primary Care Unavailable GIRVIN, DR MICHEL Admitting Unavailable GIRVIN, DR MICHEL Attending Unavailable GIRVIN, DR MICHEL Consulting Unavailable GIRVIN, DR MICHEL Consulting Unavailable GIRVIN, DR MICHEL Primary Care Unavailable GIRVIN, DR MICHEL Admitting Unavailable GIRVIN, DR MICHEL Attending Unavailable Girromelia DO Anand Primary Care Provider [phone] DO Anand Garcia Attending Provider Anand Garcia DO Primary Care Provider Anand Garcia DO Primary Care Provider CRESENCIO ROBLES Referring Unavailable ANAND GARCIA Primary Care Unavailable DO Anand Garcia Primary Care Provider DO Anand Garcia Attending Provider Unavailable Primary Care Provider Unavailabl e Anand Garcia DO Primary Care Provider Anand Garcia DO Attending Provider Ralph Hoff DO Attending Provider Anand Garcia DO Primary Care Provider Anand Garcia DO Primary Care Provider Ralph Hoff DO Attending Provider Anand Garcia DO Primary Care Provider [phone] Ralph Hoff DO Attending Provider Anand Garcia Admitting Unavailable Radha, Anand Primary Care Unavailable Anand Garcia Attending Unavailable Ralph Hoff Admitting Unavailable Girromelia, Anand Primary Care Unavailable Ralph Hoff Attending Unavailable Anand Garcia Primary Care Unavailable Elgin Hoffin A Admitting Unavailable Ralph Hoff Attending Unavailable Radha, Anand Primary Care Unavailable Elgin Hoffin A Admitting Unavailable Ralph Hoff Attending Unavailable Radha, Anand Primary Care Unavailable Elgin Hoffin A Admitting Unavailable Ralph Hoff Attending Unavailable SIMONA CARLSON Attending Unavailable ANAND GARCIA Primary Care Unavailable SIMONA CARLSON Attending Unavailable ANAND GARCIA Primary Care Unavailable HUNTER, XAVIER Attending Unavailable PENNY, RALPH Referring Unavailable BRSTEPHANIE, XAVIER Attending Unavailable PENNY, RALPH Referring Unavailable SALTY, KATHRYN Attending Unavailable PENNY, RALPH Referring Unavailable FLYNN, KATHRYN Attending Unavailable IZZY, JALEN Attending Unavailable PENNY, RALPH Referring Unavailable FLYNN, KATHRYN Attending Unavailable PENNY, RALPH Referring Unavailable FLYNN, KATHRYN Attending Unavailable PENNY, RALPH Referring Unavailable KELBLEY, EDITH Attending Unavailable PENNY, RALPH Referring Unavailable BRINK, XAVIER Attending Unavailable PENNY, RALPH Referring Unavailable IZZY, JALEN Attending Unavailable PENNY, RALPH Referring Unavailable IZZY, JALEN Attending Unavailable PENNY, RALPH Referring Unavailable FLYNN, KATHRYN Attending Unavailable PENNY, RALPH Referring Unavailable IZZY, JALEN Attending Unavailable PENNY, RALPH Referring Unavailable IZZY, JALEN Attending Unavailable PENNY, RALPH Referring Unavailable IZZY, JALEN Attending Unavailable PENNY, RALPH Referring Unavailable KELBLEY, EDITH Attending Unavailable PENNY, RALPH Referring Unavailable IZZY, JALEN Attending Unavailable PENNY, RALPH Referring Unavailable FLYNN, KATHRYN Attending Unavailable PENNY, RALPH Referring Unavailable BRSTEPHANIE, XAVIER Attending Unavailable PENNY, RALPH Referring Unavailable IZZY, JALEN Attending Unavailable PENNY, RALPH Referring Unavailable KELBLEY, EDITH Attending Unavailable PENNY, RALPH Referring Unavailable IZZY, JALEN Attending Unavailable PENNY, RALPH Referring Unavailable KELBLEY, EDITH Attending Unavailable PENNY, RALPH Referring Unavailable IZZY, JALEN Attending Unavailable PENNY, RALPH Referring Unavailable IZZY, JALEN Attending Unavailable PENNY, RALPH Referring Unavailable KELBLEY, EDITH Attending Unavailable PENNY, RALPH Referring Unavailable KELBLEY, EDITH Attending Unavailable PENNY, RALPH Referring Unavailable SANJAY HAWKINS Attending Unavailable ANAND AGRCIA Referring Unavailable KATHRYN FLYNN Attending Unavailable PENNY, RALPH Referring Unavailable BRXAVIER BROWN Attending Unavailable PENNY, RALPH Referring Unavailable SANJAY HAWKINS Attending Unavailable XAVIER HARRISON Attending Unavailable PENNY, RALPH Referring Unavailable BRSTEPHANIE, XAVIER Attending Unavailable PENNY, RALPH Referring Unavailable Anand Garcia DO Primary Care Provider Ralph Hoff DO Attending Provider Anand Garcia DO Attending Provider [phone] Allergies Allergy Classification Reported Allergen(s) Allergy Type Date of Onset Reaction(s) Facility (20 sources) NSAIDs Propensity to adverse reactions 06-21-20 24 Unknown [facility] (16 sources) Sulfamethoxazole / Trimethoprim; Translations: [Bactrim] Drug Allergy 04-10-20 kidney [facility] (20 sources) topiramate; Translations: [TOPIRAMATE] Drug Allergy 05-09-20 18 Mental Status Change [facility] (1 source) NSAIDs Drug allergy (disorder) 04-10-20 19 [facility] (20 sources) Sulfamethoxazole; Translations: [sulfamethoxazole] Drug Allergy 06-21-20 [facility] (20 sources) Trimethoprim; Translations: [trimethoprim] Drug Allergy 06-21-20 24 [facility] (11 sources) NSAIDS (Non-Steroidal Anti-Inflamma; Translations: [NSAIDS (Non-Steroidal Anti-Inflamma] Allergy to substance 06-21-20 [facility] (20 sources) Sulfamethoxazole / Trimethoprim Drug Allergy 06-28-20 20 Unknown [facility] (20 sources) Topiramate Allergy to substance 05-09-20 18 Unknown [facility] Medications Current Medications Medication Drug Class(es) Dates Sig (Normalized) Sig (Original) acetaminophen 500 mg oral tablet (5 sources) Start: 01-09-2025 take 1 tablet by mouth every six hours as needed for pain Acetaminophen 500 mg tablet Active 500 MG PO Q6H as needed for Pain January 09, 2025 12:00am DO NOT RECONCILE UNTIL DOS 01/10/25 TO BE USED POST OP Complies with 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 acetaminophen 325 mg / HYDROcodone bitartrate 5 mg oral tablet (20 sources) Opioid Agonist Start: 02-09-2025 End: 03-20-2025 Hydrocodone-Acetami nophen 5-325 mg tablet Active 1 TAB PO .COMPLEX 21 March 20, 2025 1 tab orally q6-8 hours prn; Complies with 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 Start: 12-26-2024 End: 02-09-2025 take 0.5 tablet by mouth once daily in the morning Hydrocodone-Acetaminophen 5-325 mg table t Discontinued 0.5 TAB PO Every morning December 26, 2024 1:00am February 09, 2025 12:55pm Start: 12-16-2023 End: 12-26-2024 Hydrocodone-Acetaminophen 5- 325 mg tablet Discontinued 1 TAB PO .q6-8 hrs prn 21 05March 22, 2024 May 25, 2024 10:53am Start: 09-13-2023 HYDROcodone-Ac etaminophen 5-325 MG 1 tablet Orally [...] for 7 days Jul, Active Start: 05-21-2020 [place] 5-325 MG 1 tablet Orally q6-8 hrs as needed DX: M50.30 for 7 days May, Active ascorbic acid 1000 mg oral tablet (20 sources) Vitamin C Start: 03-22-2024 take 1 g by mouth once daily Ascorbic Acid (Vitamin C) Active 1 GM PO Daily March 22, 2024 2:48pm Start: 12-16-2023 End: 03-22-2024 take 1 tablet by mouth once daily in the morning Ascorbic Acid (Vitamin C) 1,000 mg tablet Active 1000 MG PO Every morning March 22, 2024 2:48pm Complies with 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 Start: 12-16-2023 End: 03-22-2024 take 1 g by mouth once daily Ascorbic Acid (Vitamin C) Discontinued 1 GM PO Daily December 16, 2023 1:00am March 22, 2024 2:49pm FreeTextSig: as directed Once a day; Note: Source Status: Taking; Provider: Radha Michel ( ) Vitamin C Active Comment on above: Take 1,000 mg by lillie once daily. ascorbic acid (Vitamin C) 500 mg/mL oral liquid (20 sources) Start: 03-22-2024 ascorbic acid (Vitamin C) 500 mg/mL oral liquid Daily 03/22/2024 Active Atogepant (17 sources) Start: 12-19-2024 take 1 tablet by mouth once daily at bedtime Atogepant (Qulipta) 60 mg tablet Active 60 MG PO Daily at bedtime December 19, 2024 1:00am Complies with 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 Start: 12-19-2024 take 1 tablet by lillie th once daily at bedtime Atogepant (Qulipta) 60 mg tablet Active 60 MG PO Daily at bedtime December 19, 2024 1:00am Start: 12-19-2024 take 1 tablet by lillie th once daily at bedtime Atogepant (Qulipta) 60 mg tablet Active 60 MG PO Daily at bedtime December 19, 2024 12:00am Start: 12-19-2024 take 1 tablet by lillie once daily Atogepant (Qulipta) 60 mg tablet Active 60 MG PO Daily December 19, 2024 12:00am Start: 12-16-2023 End: 11-16-2024 take 1 tablet by mouth once daily Atogepant (Qulipta) 60 mg tablet Discontinued 60 MG PO Daily December 16, 2023 1:00am November 16, 2024 4:36pm Start: 12-16-2023 End: 11-16-2024 take 1 tablet by mouth once daily Atogepant (Qulipta) 60 mg tablet Discontinued 60 MG PO Daily December 16, 2023 12:00am November 16, 2024 3:36pm Start: 12-16-2023 take 1 tablet by lillie th once daily Atogepant (Qulipta) 60 mg tablet Active 60 MG PO Daily December 16, 2023 1:00am Atogepant (Qulipta) 10 MG tablet (20 sources) Atogepant (Qulip ta) 10 MG tablet Take by mouth Active atogepant (QULIPTA) 60 mg tablet (14 sources) Start: 06-09-2024 End: 06-09-2025 take 1 tablet by mouth once daily in the evening atogepant (QULIPTA) 60 mg tablet Take 1 tablet (60 mg) by mouth once daily. 30 tablet 11 03/19/2025 4:22 PM EDT 06/09/2024 06/09/2025 Active Start: 06-09-2024 End: 06-09-2025 take 1 tablet by mouth once daily atogepant (QULIPTA) 60 mg tablet Take 1 tablet (60 mg) by mouth once daily. 30 tablet 11 06/09/2024 06/09/2025 Active Start: 11-26-2023 End: 06-09-2024 take 1 tablet by mouth once daily atogepant (QULIPTA) 60 mg tablet Take 1 tablet (60 mg) by mouth once daily. 30 tablet 11 11/26/2023 06/09/2024 Discontinued Start: 11-26-2023 End: 11-25-2024 take 1 tablet by mouth once daily atogepant (QULIPTA) 60 mg tablet Take 1 tablet (60 mg) by mouth once daily. 30 tablet 11 11/26/2023 11/25/2024 Active Comment on above: Take 1 tablet (60 mg ) by mouth once daily. baclofen 10 mg oral tablet (2 sources) gamma-Aminobutyri c Acid-ergic Agonist Start: 09-28-2022 End: 10-28-2022 take 1 tablet by mouth twice daily as needed baclofen (LIORESAL) 10 mg tablet Indications: Cervicalgia , History of fusion of cervical spine , Cervical spondylosis Take 1 tablet by mouth twice daily as needed. 40 tablet 0 09/28/2022 10/28/2022 Active Comment on above: Take 1 tablet by [facility] twice daily as needed. ciclopirox 10 mg/ml medicated shampoo (20 sources) Start: 12-19-2024 Ciclopirox 1 % shampoo Active 5 ML TOPICAL Daily as needed for itching December 19, 2024 1:00am Complies with 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 Start: 08-30-2024 Ciclopirox 1 % shampoo Indications: Other seborrheic dermatitis Lather on wet hair, leave on 5 min, rinse 2-3 x week, 30 day supply 120 mL 11 08/30/2024 Active Start: 08-30-2024 ciclopirox (Lo prox) 0.77 % cream Indications: Other seborrheic dermatitis Apply thin layer to affected area once a day, 30 day supply 30 g 11 08/30/2024 Active CYANOCOBALAMIN, VITAMIN B-12 , (VITAMIN B-12 ORAL) (20 sources) CYANOCOBALAMIN, VITAMIN B-12, (VITAMIN B-12 ORAL) Take by mouth. Active CYANOCOBALAMIN, VITAMIN B-12, (VITAMIN B-12 ORAL) Take by mouth. 0 Active Comment on above: Take by mouth. dihydroergotamine mesylate 0.725 MG/ACTUAT Metered Dose Nasal [place] [Trudhesa] (2 sources) Trudhesa 0.725 MG/ACT 1 spray in each nostril may repeat dose after 1 hour no more than 3 doses per week as needed Nasally Once a day Active docusate sodium 100 mg oral capsule (5 sources) Start: 025 take 1 capsule by mouth twice daily as needed for constipation Docusate Sodium (Colace) 100 mg capsule Active 100 MG PO Twice daily as needed for Constipation 20 January 09, 2025 12:00am DO NOT RECONCILE UNTIL DOS 01/10/25 TO BE USED POST OP Complies with 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 fluocinonide 0.5 mg/ml topical solution (20 sources) Corticosteroid Start: 025 Fluocinonide 0.05 % solution Active 1 APPLIC TOPICAL Daily as needed for itching December 19, 2024 1:00am Complies with 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 Start: 08-30-2024 fluocinonide ( Lidex) 0.05 % external solution Indications: Other seborrheic dermatitis Apply to affected areas on the scalp, up to twice a day when flared, 30 day supply 60 mL 11 08/30/2024 Active Magnesium (4 sources) take 5 tablets by mo uth once daily Magnesium 100 MG 5 tablets (500 MG) Orally qd Active take 1 tablet by mouth once haylee y Magnesium 500 MG 1 tablet with a meal Orally Once a day Active Magnesium Hydroxide (16 sources) take 400 mg by mouth once daily magnesium hydroxide (MAGNESIA ORAL) Take 400 mg by mouth once daily. Active take 400 mg by mouth once daily magnesium hydroxide (MAGNESIA ORAL) Take 400 mg by mouth once daily. 0 Active Comment on above: Take 400 mg by mouth once daily. magnesium oxide 500 mg oral tablet (10 sources) Start: 12-16-2023 Magnesium Oxide 500 mg magnesium tablet Active 420 MG PO Every morning December 16, 2023 1:00am Complies with 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 Start: 12-16-2023 take 1 tablet by lillie th once daily Magnesium Oxide 500 mg magnesium tablet Active 500 MG PO Daily December 16, 2023 12:00am ondansetron (Zofran) 1 MG split tablet (20 sources) ondansetron (Zof ran) 1 MG split tablet Take 4 mg by mouth Active oxyCODONE hydrochloride 5 mg oral tablet (5 sources) Opioid Agonist Start: take 1 tablet by mouth every six hours as needed for pain Oxycodone 5 mg tablet Active 5 MG PO Q6H as needed for Pain 20 03January 09, 2025 DO NOT RECONCILE UNTIL DOS 01/10/25 TO BE USED POST OP Complies with 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 24 hr propranolol hydrochloride 80 mg extended release oral capsule (20 sources) beta-Adrenergic Nicky Start: take 1 capsule by mouth once daily in the morning Propranolol 80 mg capsule,extended release 24 hr Active 80 MG PO Every morning November 16, 2024 1:00am Complies with 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 Start: 12-16-2023 End: 11-16-2024 take 1 tablet by mouth once daily Propranolol 80 mg tablet Discontinued 80 MG PO Daily December 16, 2023 1:00am November 16, 2024 4:43pm FreeTextSi Tablet Orally Once a day; Note: Source Status: Taking; Provider: Radha Michel ( ) Start: 11-26-2023 End: 10-04-2024 take 1 capsule by mouth once daily in the morning Propranolol 80 mg capsule,extended release 24 hr Active 80 MG PO Every morning November 16, 2024 1:00am Start: 12-02-2021 End: 11-23-2022 take 1 capsule by mouth once daily propranolol ER (INDERAL LA) 80 mg 24 hr capsule Take 1 capsule by mouth once daily. 90 capsule 3 11/24/2022 Active take 1 tablet by lillie th every twenty-four hours Propranolol HCl 80 MG 1 Tablet Orally Once a day Active Comment on above: Take 1 capsule by mo uth once daily. rimegepant 75 mg disintegrating oral tablet (13 sources) Start: take 1 tablet by mouth once daily as needed for headache Rimegepant (Nurtec Odt) 75 mg tablet,disintegrati ng Active 75 MG PO Daily as needed for migraine headache November 16, 2024 1:00am Complies with 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 Start: 10-04-2024 take 1 tablet by lillie every twenty-four hours in the evening rimegepant (NURTEC ODT) 75 mg disintegrating tablet Take 1 dissolvable tablet by mouth at migraine onset. Take only 1 tablet per 24 hours. 8 tablet 11 03/19/2025 4:22 PM EDT 10/04/2024 Active 72 hr scopolamine 0.0139 mg/hr transdermal system (20 sources) Anticholinergic Start: 05-31-2017 scopolamine (TRANSDERM-SCOP) 1.5 mg (1 mg over [...] on above: Take 1 capsule by mo [facility] twice daily as needed. Vitamin C 1000 MG (6 sources) Vitamin C 1000 M G as directed Once a day Not-Taking Vitamin C 1000 M G as directed Once a day Active vitamin e 180 mg oral capsule (10 sources) Start: 12-16-2023 take 1 capsule by mouth once daily in the morning Vitamin E Mixed 400 unit capsule Active 400 UNIT PO Every morning December 16, 2023 1:00am Complies with 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 Start: 12-16-2023 Vitamin E Mixe d 400 unit capsule Active UNIT PO December 16, 2023 12:00am Start: 12-16-2023 Vitamin E Mixe d Active UNIT PO December 16, 2023 1:00am Vitamin E 400 UNIT (15 sources) take [...] spray nasally at onset of headache Active Multivitamin preparation (16 sources) Start: 12-16-2023 End: 12-20-2023 take 1 tablet by mouth once daily Multivitamin Discontinued 1 TAB PO Daily December 16, 2023 1:00am December 20, 2023 3:47pm take 1 tablet by mouth once haylee y Multivitamin - 1 tablet Orally Once a day Active Multivitamin tablet (9 sources) Start: 12-16-2023 End: 12-20-2023 take 1 tablet by mouth once daily Multivitamin tablet Discontinued 1 TAB PO Daily December 16, 2023 1:00am December 20, 2023 3:47pm Start: 12-16-2023 End: 12-20-2023 take 1 tablet by mouth once daily Multivitamin tablet Discontinued 1 TAB PO Daily December 16, 2023 12:00am December 20, 2023 2:47pm ondansetron 4 mg oral tablet (20 sources) Serotonin-3 Receptor Antagonist Start: 12-16-2023 End: 05-25-2024 Ondansetron Hcl 4 mg tablet Discontinued 4 MG PO .COMPLEX as needed for nausea and vomiting May 25, 2024 10:52am May 25, 2024 10:53am 4 mg orally q8-12 hrs PRN Start: 07-01-2015 Zofran 4 mg 1 tablet Orally q8-12 hrs prn prn Jun, Active Start: 07-01-2015 Zofran 4 mg 1 tablet Orally q8-12 hrs prn Jun, Active ONDANSETRON HCL (ZOFRAN ORAL) Take 4 mg by mouth as needed. Active Comment on above: Take 4 mg by mouth a s needed. rizatriptan 10 mg oral tablet (20 sources) Serotonin-1b and Serotonin-1d Receptor Agonist Start: rizatriptan (MAXALT) 10 mg tablet 1 tab at earliest sign of migraine. May repeat once in 2 hours if needed. Give max allowed per insurance. 27 tablet 3 09/23/2020 Active Comment on above: 1 tab at earliest si gn of migraine. May repeat once in 2 hours if needed. Give max allowed per insurance. rosuvastatin calcium 5 mg oral tablet (20 sources) HMG-CoA Reductase Inhibitor Start: End: take 1 tablet by mouth once daily Rosuvastatin 5 mg tablet Discontinued 0 .ROUTE .COMPLEX 90 June 13, 2024 8:07am December 26, 2024 3:21pm TAKE 1 TABLET BY MOUTH EVERY DAY Start: 12-29-2023 End: 03-22-2024 take 1 tablet by mouth once daily Rosuvastatin 5 mg tablet Discontinued 0 .ROUTE .COMPLEX 90 December 29, 2023 2:05pm March 22, 2024 2:49pm TAKE 1 TABLET BY MOUTH EVERY DAY Start: 06-09-2023 End: 06-13-2024 take 1 tablet by mouth once daily Rosuvastatin 5 mg tablet Discontinued 5 MG PO Daily March 22, 2024 2:49pm June 13, 2024 8:07am Comment on above: Take 1 tablet by lillie th every afternoon. SUMAtriptan 20 mg/actuat nasal spray (7 sources) [...] 02-06-2022 Kenalog -40 mg Jan, 40 mg ubrogepant 100 mg oral tablet (20 sources) Start: 11-26-2023 End: 12-19-2024 Ubrogepant (Ubrelvy) 100 mg tablet Discontinued 100 MG PO as needed December 16, 2023 1:00am December 19, 2024 3:31pm Comment on above: Take 1 tab at migrai ne onset. May repeat once in 2 hours as needed. zinc gluconate 50 mg oral tablet (5 sources) take 1 tablet by mouth every twenty-four hours Zinc 50 MG 1 tablet Orally Once a day Not-Taking ZOLMitriptan 5 mg/actuat nasal spray (20 sources) Serotonin-1b and Serotonin-1d Receptor Agonist Start: 10-01-2021 ZOLMitriptan (ZOMIG) 5 mg nasal spray 1 spray in 1 nostril at headache onset. May repeat once in 2 hours if needed. Give max sprays allowed per insurance. 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] Onset: 4 01-07-2024 Chronic Blindness and vision defects (10 sources) Diplopia; Translations: [Diplopia] 12-20-2023 Episodic Chronic kidney disease (20 sources) Chronic kidney disease; Translations: [Chronic kidney disease, unspecified] Onset: 2 Resolved: 2 Chronic Diabetes mellitus without complication (20 sources) Hyperglycemia, unspecified; Translations: [Hyperglycemia] Onset: 2 Resolved: 2 Episodic Diseases of white blood cells (13 sources) Leukocytosis; Translations: [Elevated white blood cell count, unspecified] 12-19-2024 Chronic Disorders of lipid metabolism (20 sources) Hypertriglyceridemia; [...] Translations: [Nausea] Episodic Nephritis; nephrosis; renal sclerosis (20 sources) Nephrosclerosis; 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)] Onset: 2 Resolved: 2 Chronic Osteoarthritis (15 sources) Osteoarthritis of right hip joint; Translations: [Unilateral primary osteoarthritis, right hip] Onset: 2 Resolved: 2 Chronic Other aftercare (9 sources) Other terminal worker (current) 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; Translations: [OTH JAIL CURRENT DRUG THERAPY] Onset: 2 Resolved: 2 Episodic Other aftercare (3 sources) Surgical follow-up; Translations: [Encounter for removal of sutures] 01-22-2025 Episodic Other aftercare (3 sources) Encounter for removal of sutures; Translations: [Encounter for removal of sutures] 01-22-2025 Episodic Other aftercare (1 source) Removal of sutures done; Translations: [Encounter for removal of sutures] 01-22-2025 Episodic Other connective tissue disease (3 sources) History of cervical spine fusion; Translations: [Arthrodesis status] Episodic Other connective tissue disease (20 sources) Tear of left rotator cuff; Translations: [Unspecified rotator cuff tear or rupture of left shoulder, not specified as traumatic] 10-30-2024 Episodic Other connective tissue disease (20 sources) Disorder of shoulder; Translations: [Other shoulder lesions, left shoulder] 10-30-2024 Episodic Other connective tissue disease (20 sources) Tendinitis of left rotator cuff; Translations: [Other shoulder lesions, left shoulder] 10-19-2024 Episodic Other connective tissue disease (12 sources) Unspecified rotator cuff tear or rupture of left shoulder, not specified as traumatic; Translations: [Rotator cuff (capsule) sprain] 10-19-2024 Episodic Other connective tissue disease (16 sources) Other shoulder lesions, left shoulder; Translations: [Disorders of bursae and tendons in shoulder region, unspecified] 10-19-2024 Episodic Other connective tissue disease (11 sources) Biceps tendinitis; Translations: [Bicipital tendinitis, left shoulder] 12-18-2024 Episodic Other connective tissue disease (10 sources) Bicipital tendinitis, left shoulder; Translations: [Bicipital tenosynovitis] 12-18-2024 Episodic Other connective tissue disease (1 source) Complete rotator cuff tear or rupture of left shoulder, not specified as traumatic; Translations: [Complete rotator cuff tear or rupture of left shoulder, not specified as traumatic] Onset: 5 Episodic Other connective tissue disease (3 sources) Triggering of digit; Translations: [Trigger finger, right middle finger] 04-23-2025 Episodic Other diseases of kidney and ureters (20 sources) Secondary hyperparathyroidism; Translations: [Secondary hyperparathyroidism of renal origin] 12-16-2023 Chronic Other diseases of kidney and ureters (10 sources) Secondary hyperparathyroidism of renal origin; Translations: [Secondary hyperparathyroidism (of renal origin)] Onset: 2 Resolved: 2 Chronic Other inflammatory condition of skin (4 sources) Seborrheic dermatitis; Translations: [Other seborrheic dermatitis] 08-30-2024 Episodic Other nervous system disorders (10 sources) Disturbance in speech; Translations: [Unspecified speech disturbances] 12-20-2023 Episodic Other non-traumatic joint disorders (15 sources) Pain in left shoulder; Translations: [Left shoulder pain] Onset: 4 06-21-2024 Episodic Other nutritional; endocrine; and metabolic disorders (11 sources) [place] hump; 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] Chronic Other nutritional; endocrine; and metabolic disorders (2 sources) Localized adiposity; Translations: [LOCALIZED ADIPOSITY] Onset: 2 Resolved: 2 Chronic Other nutritional; endocrine; and metabolic disorders (16 sources) Hypomagnesemia; Translations: [Hypomagnesemia] 12-16-2023 Chronic Other nutritional; endocrine; and metabolic disorders (8 sources) Hypomagnesemia; 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 Other nutritional; endocrine; and metabolic disorders (9 sources) Abnormal weight gain; Translations: [Abnormal weight gain] Onset: 2 Resolved: 2 Episodic Other nutritional; endocrine; and metabolic disorders (10 sources) Weight increased; Translations: [Abnormal weight gain] 06-21-2024 Episodic Other nutritional; endocrine; and metabolic disorders (9 sources) Intentional weight loss 03-22-2024 Episodic Other screening for suspected conditions (not mental disorders or infectious disease) (20 sources) Screening status; Translations: [Encounter for screening for malignant neoplasm of colon] Onset: 2 Resolved: 2 Episodic Residual codes; unclassified (9 sources) History of arthroscopic procedure on shoulder; Translations: [Other specified postprocedural states] 01-09-2025 Episodic Residual codes; unclassified (5 sources) Other specified postprocedural states; Translations: [Other postprocedural status] Onset: 5 01-22-2025 Episodic Spondylosis; intervertebral disc disorders; other back problems (20 sources) Cervical spondylosis; Translations: [Spondylosis without myelopathy or radiculopathy, cervical region] Onset: 2 Resolved: 2 Chronic Spondylosis; intervertebral disc disorders; other back problems (20 sources) Cervico-occipital neuralgia; Translations: [Occipital neuralgia] Onset: 5 Episodic Unclassified (1 source) CHRN KIDNEY DISEASE STG 3 UNSP; Translations: [CHRN KIDNEY DISEASE STG 3 UNSP] Onset: 3 Unclassified (1 source) CONTACT W/AND (SUSP) EXPOS COVID-19; Translations: [CONTACT W/AND (SUSP) EXPOS COVID-19] Onset: 2 Unclassified (1 source) Intentional weight loss; Translations: [Intentional weight loss] 03-22-2024 Viral infection (13 sources) Viral disease; Translations: [Viral infection, unspecified] 12-19-2024 Episodic Past or Other Problems Problem Classification Problem [...] Resolved: 02-06-2022 Episodic Other connective tissue disease (20 sources) Chronic musculoskeletal pain; Translations: [Myalgia, other [...] BOTH CERVIX AND UTERUS] Onset: 02-05-2022 Episodic Results Test Name Value Interpretation Reference Range Facility [facility] 04-04-2025 CNOV Office Visit (VAFB) MYRTLE JONES ([id number]) 1965 F Date Time Provider Department 04/04/25 4:00 PM SIMONA CARLSON [facility] During your visit today, we recorded the following information about you: Blood pressure Weight Height 148/82 68 kg 1.702 m Simona Carlson, HOUSEKEEPING ASSISTANT.PIG CONVEYOR OPERATOR 04/04/2025 4:24 PM Signed Head[facility] - Follow up [...] Follow-up Impression and Plan from last visit: [facility] 10/04/2024 with Me. Myrtle Jones is a 59-year-old female with history significant for chronic migraine, chronic neck pain (s/p fusion x2), occipital neuralgia and HTN. At her last visit she was to continue Qulipta and Ubrelvy. Interval Headache History: A few more migraines over the past few months. [employer] is working about 80% of the time. If it doesn't help she may take an Excedrin. Headache 1 Location: right and frontal Quality/Description: throbbing Associated Symptoms: Photophobia: yes Phonophobia: yes Nausea: yes Vomiting: yes - only when severe and if migraine lasts a long time Worse with activity: yes Number of migraine headache days/month: 5 Number of headache free days/month: 25 Duration of headaches with treatment: 30 minutes Current preventive treatment: Qulipta, Propranolol, Magnesium Current abortive treatment: Nurtec (works about 80% of the time), Excedrin Relieving factors: Medication, laying down, rest/sleep Aura: scotoma (Squiggly lines. Lasts about 30 minutes.) Denies any change in typical migraine/headache pattern. Prior Therapies Duration of Use Dose Reason for Discontinuation Other Therapies Nerve blocks Analgesic Butalbital/acetaminop hen/caffeine (Fioricet) Hydrocodone/Acetamino phen (Vicodin, [place]) Anti-Convulsant Topiramate (Topamax, Trokendi XL, Qudexy) Anti-Depressant and Antipsychotic Amitriptyline (Elavil) Duloxetine (Cymbalta) Nortriptyline (Pamelor, Aventyl) Antiemetics Ondansetron Anti-Migraine Dihydroergotamine (DHE-45, Migranal) Rizatriptan (Maxalt) Sumatriptan (Imitrex, Sumavel) Zolmitriptan (Zomig) Blood Pressure Propranolol (Inderal) Timolol MABs Erenumab (Aimovig) Galcanezumab (Emgality) GEPANTS Ubrogepant (Ubrelvy) Rimegepant (Nurtec) Atogepant Botulinum Toxin Onabotulimum Toxin A (Botox) Other Medications Prednisone Over the Counter Medications Acetaminophen (Tylenol) Acetaminophen/Aspirin /Caffeine (Excedrin, Goody?s) Ibuprofen (Advil, Motrin) PAST MEDICAL [...] Issues and questions to be addressed: Medications rimegepant (NURTEC ODT) 75 mg disintegrating tablet Take 1 dissolvable tablet by mouth at migraine onset. Take only 1 tablet per 24 hours. propranolol ER (INDERAL LA) 80 mg 24 hr capsule Take 1 capsule by mouth once daily. atogepant (QULIPTA) 60 mg tablet Take 1 [...] these with the patient: Yes, Simona Carlson, GHISLAINE.PIG CONVEYOR OPERATOR HEADACHE SCORES: 03/22/2024 10/01/2024 03/28/2025 Headache Questions ER visits since last office visit: 0 0 0 Hospital stays since last office visit 0 0 0 Limited ADLs in the last month: 2 3 6 Days missed from work or school in the last month: 1 0 0 Days headache pain free in the last month: 20 27 2 (more content not included)... Normal [facility] X-ray reportOrdered By: Michael Monroe on 01-22-2025 Study report [facility] [address] [place] [address] XRay Report Signed Patient: Myrtle Jones MR#: [id number] : 1965 Acct:[id number] Age/Sex: 59 / F ADM Date: 5 Loc: [facility] Room: Type: [facility] Attending Dr: Ralph Hoff DO Copies to: Ralph Hoff DO~ Ordering Provider: Ralph Hoff DO Date of Service: 01/22/25 XR/XR shoulder LT min 2V*: Z98.890 - Other specified postprocedural states 3 views left shoulder plain film HISTORY: Status post left rotator cuff repair COMPARISON: 10/19/2024 ACUTE FINDINGS: None DEGENERATIVE CHANGE: Similar mild degeneration SOFT TISSUE FINDINGS: Unremarkable JOINT EFFUSION: None POSTOP CHANGES: None BONY MINERALIZATION: Adequate XR/XR shoulder LT min 2V* IMPRESSION: Similar degeneration Impression dictated by: Seth Monroe M.D.01/22/2025 4:44 PM Dictation Location: RADIO-PC-19 Transcribed By: AIYANA 01/22/251643 Dictated By: Seth Monroe DO 01/22/251642 Signed By: 01/22/251643 [facility] XR shoulder LT min 2V*on XR shoulder LT min 2V* [facility] [address] [place] [address] XRay Report Signed Patient: Myrtle Jones MR#: [id number] : 1965 Acct:[id number] Age/Sex: 59 / F ADM Date: 01/22/25 Loc: [facility] Room: Type: [facility] Attending Dr: Ralph Hoff DO Copies to: Ralph Hoff DO Ordering Provider: Ralph Hoff DO Date of Service: 01/22/25 XR/XR shoulder LT min 2V*: Z98.890 - Other specified postprocedural states 3 views left shoulder plain film HISTORY: Status post left rotator cuff repair COMPARISON: 10/19/2024 ACUTE FINDINGS: None DEGENERATIVE CHANGE: Similar mild degeneration SOFT TISSUE FINDINGS: Unremarkable JOINT EFFUSION: None POSTOP CHANGES: None BONY MINERALIZATION: Adequate XR/XR shoulder LT min 2V* IMPRESSION: Similar degeneration Impression dictated by: Seth Monroe M.D.01/22/2025 4:44 PM Dictation Location: RADIO-PC-19 Transcribed By: AIYANA 01/22/251643 Dictated By: Seth Monroe DO 01/22/251642 Signed By: 01/22/251643 Normal [facility] Alanine aminotransferase [En zymatic activity/volume] in Serum or PlasmaOrdered By: Ralph Hoff on 12-26-2024 ALT [Catalytic activity/Vol] Alanine aminotransferase [Enzymatic activity/volume] in Serum or Plasma [facility] Albumin [Mass/volume] in Ser um or Plasma by Bromocresol green (BCG) dye binding methoOrdered By: Ralph Hoff on 12-26-2024 Albumin BCG dye [Mass/Vol] Albumin [Mass/volume] in Serum or Plasma by Bromocresol green (BCG) dye binding metho 3.5-5.7 [facility] Alkaline phosphatase [Enzyma tic activity/volume] in Serum or PlasmaOrdered By: Ralph Hoff on 12-26-2024 ALP [Catalytic activity/Vol] Alkaline phosphatase [Enzymatic activity/volume] in Serum or Plasma 34-104 [facility] Aspartate aminotransferase [ Enzymatic activity/volume] in Serum or PlasmaOrdered By: Ralph Hoff on 12-26-2024 AST [Catalytic activity/Vol] Aspartate aminotransferase [Enzymatic activity/volume] in Serum or Plasma 13-39 [facility] Basophils Auto (Bld) [#/Vol] Ordered By: Ralph Hoff on 12-26-2024 Basophils (Bld) [#/Vol] Automated basoph il count 0.0-0.2 [facility] Basophils/100 WBC Auto (Bld) Ordered By: Ralph Hoff on 12-26-2024 Basophils/100 WBC (Bld) Automated basophil % . [facility] Bilirubin.total [Mass/volume ] in Serum or PlasmaOrdered By: Ralph Hoff on 12-26-2024 Bilirubin [Mass/Vol] Bilirubin.total [Mass/volume] in Serum or Plasma 0.3-1.0 [facility] CMP with reflex to A1Con Albumin [Mass/Vol] 4.3 g/dL Normal 3.5-5.7 [facility] Comment on above: Performed By: #### C MP wRFX A1C, CBC #### [facility] [address] Albumin/Globulin [Mass ratio] 1.7 {ratio} Normal [facility] Comment on above: Performed By: #### C MP wRFX A1C, CBC #### [facility] [address] [place] [address] [facility] ALP [Catalytic activity/Vol] 40 U/L Normal 34-104 [facility] Comment on above: Result Comment: PERF ORMED BY: [address] [address] PATHOLOGIST WINDOWS DESKTOP ENGINEER NOREEN ARIAS M.D. Performed By: #### C MP wRFX A1C, CBC #### [place] [address] ALT [Catalytic activity/Vol] 13 U/L Normal 7-52 [facility] Comment on above: Performed By: #### C MP wRFX A1C, CBC #### [facility] [address] [place] [id number] [facility] Anion gap [Moles/Vol] 14.1 mmol/L Normal 6.0-15.0 [facility] Comment on above: Performed By: #### C MP wRFX A1C, CBC #### [address] AST [Catalytic activity/Vol] 15 U/L Normal 13-39 [facility] Comment on above: Performed By: #### C MP wRFX A1C, CBC #### [address] Bilirubin [Mass/Vol] 0.6 mg/dL Normal 0.3-1.0 [facility] Comment on above: Performed By: #### C MP wRFX A1C, CBC #### [place] [address] [place] Calcium [Mass/Vol] 9.7 mg/dL Normal 8.6-10.3 [facility] Comment on above: Performed By: #### C MP wRFX A1C, CBC #### [place] [address] [place] Chloride [Moles/Vol] 104 mmol/L Normal 98-107 [facility] Comment on above: Performed By: #### C MP wRFX A1C, CBC #### [place] [address] [place] CO2 [Moles/Vol] 25.3 mmol/L Normal 21.0-31.0 [facility] Comment on above: Performed By: #### C MP wRFX A1C, CBC #### [place] [address] [place] Creatinine [Mass/Vol] 0.90 mg/dL Normal 0.60-1.20 [facility] Comment on above: Performed By: #### C MP wRFX A1C, CBC #### [facility] [address] [place] [address] [place] GFR/1.73 sq M.predicted MDRD (S/P/Bld) [Vol rate/Area] mL/min/{1.73_m2} Normal [facility] Comment on above: Performed By: #### C MP wRFX A1C, CBC #### [facility] [address] [place] [address] [place] Globulin (S) [Mass/Vol] 2.5 g/dL Normal T [facility] Comment on above: Performed By: #### C MP wRFX A1C, CBC #### [facility] [address] [place] [address] [place] Glucose [Mass/Vol] 84 mg/dL Normal 70-100 [facility] Comment on above: Performed By: #### C MP wRFX A1C, CBC #### [facility] [address] [place] [address] [place] Potassium [Moles/Vol] 4.4 mmol/L Normal 3.5-5.1 [facility] Comment on above: Performed By: #### C MP wRFX A1C, CBC #### [facility] [address] [place] [address] [place] Protein [Mass/Vol] 6.8 g/dL Normal 6.4-8.9 [facility] Comment on above: Performed By: #### C MP wRFX A1C, CBC #### [facility] [address] [place] [address] [place] Sodium [Moles/Vol] 139 mmol/L Normal 136-145 [facility] Comment on above: Performed By: #### C MP wRFX A1C, CBC #### [facility] [address] [place] [id number] [place] Urea nitrogen [Mass/Vol] 21 mg/dL Normal 7-25 [facility] Comment on above: Performed By: #### C MP wRFX A1C, CBC #### [facility] [address] [place] [address] [place] Calcium [Mass/volume] in Ser um or PlasmaOrdered By: Ralph Hoff on 12-26-2024 Calcium [Mass/Vol] Calcium [Mass/volume ] in Serum or Plasma 8.6-10.3 [facility] Carbon dioxide, total [Moles /volume] in Serum or PlasmaOrdered By: Ralph Hoff on 12-26-2024 CO2 [Moles/Vol] Carbon dioxide, tota l [Moles/volume] in Serum or Plasma 21.0-31.0 [facility] Chloride [Moles/volume] in S karyna or PlasmaOrdered By: Ralph Hoff on 12-26-2024 Chloride [Moles/Vol] Chloride [Moles/volume] in Serum or Plasma 98-107 [facility] Complete Blood Count Auto Di ffon 12-26-2024 Basophils (Bld) [#/Vol] 0.1 10*3/uL Normal 0.0-0.2 [facility] Comment on above: Result Comment: PERF ORMED BY: [place] [address] PATHOLOGIST WINDOWS DESKTOP ENGINEER NOREEN ARIAS M.D. Performed By: #### C MP wRFX A1C, CBC #### [facility] [address] [place] [address] [place] Basophils/100 WBC (Bld) 0.7 % Normal . Josue escobar [facility] Comment on above: Performed By: #### C MP wRFX A1C, CBC #### [facility] [address] [place] [address] [place] Eosinophils (Bld) [#/Vol] 0.0 10*3/uL Normal 0.0-0.45 [facility] Comment on above: Performed By: #### C MP wRFX A1C, CBC #### [facility] [address] [place] [address] [place] Eosinophils/100 WBC (Bld) 0.1 % Normal . [facility] Comment on above: Performed By: #### C MP wRFX A1C, CBC #### [facility] [address] Erythrocyte distribution width (RBC) [Ratio] 13.0 % Normal 11.9-15.3 [facility] Comment on above: Performed By: #### C MP wRFX A1C, CBC #### [address] Hematocrit (Bld) [Volume fraction] 36.9 % Normal 34.0-46.4 [facility] Comment on above: Performed By: #### C MP wRFX A1C, CBC #### [address] Hemoglobin (Bld) [Mass/Vol] 12.8 g/dL Normal 11.8-15.4 [facility] Comment on above: Performed By: #### C MP wRFX A1C, CBC #### [address] Lymphocytes (Bld) [#/Vol] 3.1 10*3/uL Normal 1.00-4.8 [facility] Comment on above: Performed By: #### C MP wRFX A1C, CBC #### [address] Lymphocytes/100 WBC (Bld) 31.8 % Normal . [facility] Comment on above: Performed By: #### C MP wRFX A1C, CBC #### [address] MCH (RBC) [Entitic mass] 31.1 pg Normal 24.7-34.3 [facility] Comment on above: Performed By: #### C MP wRFX A1C, CBC #### [address] MCV (RBC) [Entitic vol] 89.5 fL Normal 80-100 [facility] Comment on above: Performed By: #### C MP wRFX A1C, CBC #### [address] Mean Corpuscular HGB Conc 34.8 g/dL Normal 32.0-35.0 [facility] Comment on above: Performed By: #### C MP wRFX A1C, CBC #### [address] Monocytes (Bld) [#/Vol] 0.5 10*3/uL Normal 0.0-0.8 [facility] Comment on above: Performed By: #### C MP wRFX A1C, CBC #### [address] Monocytes/100 WBC (Bld) 5.5 % Normal . [facility] Comment on above: Performed By: #### C MP wRFX A1C, CBC #### [address] Neutrophils (Bld) [#/Vol] 6.1 10*3/uL Normal 1.8-7.7 [facility] Comment on above: Performed By: #### C MP wRFX A1C, CBC #### [address] Neutrophils/100 WBC (Bld) 61.9 % Normal . [facility] Comment on above: Performed By: #### C MP wRFX A1C, CBC #### [address] NRBC% 0.0 /100{WBC} Normal 0-0.5 [facility] Comment on above: Performed By: #### C MP wRFX A1C, CBC #### [address] Platelet mean volume (Bld) [Entitic vol] 9.0 fL Normal 6.3-10.7 [facility] Comment on above: Performed By: #### C MP wRFX A1C, CBC #### [place] [address] [place] Platelets (Bld) [#/Vol] 297 10*3/uL Normal 150-450 [facility] Comment on above: Performed By: #### C MP wRFX A1C, CBC #### [address] RBC (Bld) [#/Vol] 4.12 10*6/uL Normal 3.60-5.00 [facility] Comment on above: Performed By: #### C MP wRFX A1C, CBC #### [facility] [address] [place] [id number] [place] WBC (Bld) [#/Vol] 9.9 10*3/uL Normal 3.8-11.6 [facility] Comment on above: Performed By: #### C MP wRFX A1C, CBC #### [facility] [address] [place] [address] Creatinine [Mass/volume] in Serum or PlasmaOrdered By: Ralph Hoff on 12-26-2024 Creatinine [Mass/Vol] Creatinine [Mass/volume] in Serum or Plasma 0.60-1.20 [facility] ECG 12 lead ECGon 12-26-2024 ECG 12 lead ECG [facility] Main [place] [address] [place] [address] Electrocardiograph Report Signed Patient: Myrtle Jones MR#: [id number] : 1965 Acct:[id number] Age/Sex: 59 / F ADM Date: 12/26/24 Loc: Room: Type: [facility] Attending Dr: Ralph Hoff DO Ordering Provider: Ralph Hoff DO Date of Service: 12/26/24 ECG/ECG 12 lead ECG: Pre op Copies to: Test Reason : Blood Pressure : */* mmHG Vent. Rate : 55 BPM Atrial Rate : 55 BPM P-R Int : 120 ms QRS Dur : 74 ms QT Int : 420 ms P-R-T Axes : 48 44 55 degrees QTcB Int : 401 ms Sinus bradycardia Otherwise normal ECG Confirmed by Domonique Hsieh ([id number]) on 12/27/2024 8:29:59 PM Referred By: Electronically Signed By: Domonique Hsieh Transcribed By: MUS Signed By Domonique Hsieh MD 2029 Normal [facility] Eosinophils Auto (Bld) [#/Vo l]Ordered By: Ralph Hoff on 12-26-2024 Eosinophils (Bld) [#/Vol] Automated eosinophil count 0.0-0.45 [facility] Eosinophils/100 WBC Auto (Bl d)Ordered By: Ralph Hoff on 12-26-2024 Eosinophils/100 WBC (Bld) Automated eosinophil % . [facility] Erythrocyte distribution wid th Auto (RBC) [Ratio]Ordered By: Ralph Hoff on 12-26-2024 Erythrocyte distribution width (RBC) [Ratio] Erythrocyte distribution width [Ratio] by Automated count 11.9-15.3 [facility] Globulin Calc (S) [Mass/Vol] Ordered By: Ralph Hoff on 12-26-2024 Globulin (S) [Mass/Vol] Serum globulin measurement by calculation (mass/volume) [facility] Glucose [Mass/volume] in Ser um or PlasmaOrdered By: Ralph Hoff on 12-26-2024 Glucose [Mass/Vol] Glucose [Mass/volume ] in Serum or Plasma 70-100 [facility] Hematocrit Auto (Bld) [Volum e fraction]Ordered By: Ralph Hoff on 12-26-2024 Hematocrit (Bld) [Volume fraction] Hematocrit [Volume Fraction] of Blood by Automated count 34.0-46.4 [facility] Hemoglobin [Mass/volume] in BloodOrdered By: Ralph Hoff 12-26-2024 Hemoglobin (Bld) [Mass/Vol] Hemoglobin [Mass/volume] in Blood 11.8-15.4 [facility] Leukocytes [#/volume] correc diana for nucleated erythrocytes in Blood by Automated counOrdered By: Ralph Hoff on 12-26-2024 WBC corrected for nucl RBC Auto (Bld) [#/Vol] Leukocytes [#/volume] corrected for nucleated erythrocytes in Blood by Automated coun 3.8-11.6 [facility] Lymphocytes Auto (Bld) [#/Vo l]Ordered By: Ralph Hoff on 12-26-2024 Lymphocytes (Bld) [#/Vol] Lymphocytes [#/volume] in Blood by Automated count 1.00-4.8 [facility] Lymphocytes/100 WBC Auto (Bl d)Ordered By: Ralph Hoff on 12-26-2024 Lymphocytes/100 WBC (Bld) Lymphocytes/100 leukocytes in Blood by Automated count . [facility] MCH Auto (RBC) [Entitic mass ]Ordered By: Ralph Hoff on 12-26-2024 MCH (RBC) [Entitic mass] MCH [Entitic ma ss] by Automated count 24.7-34.3 [facility] MCHC Auto (RBC) [Mass/Vol]Or dered By: Ralph Hoff on 12-26-2024 MCHC (RBC) [Mass/Vol] MCHC [Mass/volume] by Automated count 32.0-35.0 [facility] MCV Auto (RBC) [Entitic vol] Ordered By: Ralph Hoff on 12-26-2024 MCV (RBC) [Entitic vol] MCV [Entitic vol ume] by Automated count 80-100 [facility] Monocytes Auto (Bld) [#/Vol] Ordered By: Ralph Hoff on 12-26-2024 Monocytes (Bld) [#/Vol] Automated blood monocyte count 0.0-0.8 [facility] Monocytes/100 WBC Auto (Bld) Ordered By: Ralph Hoff on 12-26-2024 Monocytes/100 WBC (Bld) Automated monocyte % . [facility] Neutrophils Auto (Bld) [#/Vo l]Ordered By: Ralph Hoff on 12-26-2024 Neutrophils (Bld) [#/Vol] Neutrophils [#/volume] in Blood by Automated count 1.8-7.7 [facility] Neutrophils/100 WBC Auto (Bl d)Ordered By: Ralph Hoff on 12-26-2024 Neutrophils/100 WBC (Bld) Automated neutrophil % . [facility] No Panel InformationOrdered By: Ralph Hoff on 12-26-2024 Estimated GFR (CKD-EPI) > 60.0 mL/Min [facility] Creatinine Clearance (Chem N/A [facility] Nucleated erythrocytes [Pres ence] in Blood by Automated countOrdered By: Ralph Hoff on 12-26-2024 Nucleated RBC Auto Ql (Bld) Nucleated erythrocytes [Presence] in Blood by Automated count 0-0.5 [facility] Platelet mean volume Auto (B ld) [Entitic vol]Ordered By: Ralph Hoff on 12-26-2024 Platelet mean volume (Bld) [Entitic vol] Platelet mean volume [Entitic volume] in Blood by Automated count 6.3-10.7 [facility] Platelets Auto (Bld) [#/Vol] Ordered By: Ralph Hoff on 12-26-2024 Platelets (Bld) [#/Vol] Platelets [#/vol ume] in Blood by Automated count 150-450 [facility] Potassium [Moles/volume] in Serum or PlasmaOrdered By: Ralph Hoff on 12-26-2024 Potassium [Moles/Vol] Potassium [Moles/volume] in Serum or Plasma 3.5-5.1 [facility] Protein [Mass/volume] in Ser um or PlasmaOrdered By: Ralph Hoff on 12-26-2024 Protein [Mass/Vol] Protein [Mass/volume ] in Serum or Plasma 6.4-8.9 [facility] RBC Auto (Bld) [#/Vol]Ordere d By: Ralph Hoff on 12-26-2024 RBC (Bld) [#/Vol] Erythrocytes [#/volume] in Blood by Automated count 3.60-5.00 [facility] Serum or plasma albumin/glob ulin mass ratioOrdered By: Ralph Hoff on 12-26-2024 Albumin/Globulin [Mass ratio] Serum or plasma albumin/globulin mass ratio [facility] Serum or plasma anion gap de terminationOrdered By: Ralph Hoff on 12-26-2024 Anion gap [Moles/Vol] Serum or plasma an ion gap determination 6.0-15.0 [facility] Sodium [Moles/volume] in Ser um or PlasmaOrdered By: Ralph Hoff on 12-26-2024 Sodium [Moles/Vol] Sodium [Moles/volume ] in Serum or Plasma 136-145 [facility] Urea nitrogen [Mass/volume] in Serum or PlasmaOrdered By: Ralph Hoff on 12-26-2024 Urea nitrogen [Mass/Vol] Urea nitrogen [Mass/volume] in Serum or Plasma 7-25 [facility] WBC Auto (Bld) [#/Vol]Ordere d By: Ralph Hoff on 12-26-2024 WBC (Bld) [#/Vol] Leukocytes [#/volume ] in Blood by Automated count 3.8-11.6 [facility] CNPNon 12-07-2024 CRUZ Telephone (MNOPRX) BUCK JONESY ([id number]) 1965 F Date Time Provider Department 12/07/24 SALMA CALLEJAS During your visit today, we recorded the following information about you: Allergies As of Date: 12/07/2024 Noted Allergy Reaction TOPAMAX (TOPIRAMATE) 05/09/2018 1 - Mental Status Change Date Reviewed: 10/04/2024 Reviewed by: Simona Carlson APRN.PIG CONVEYOR OPERATOR - Fully Assessed Prescriptions as of 12/08/2024 - rimegepant (NURTEC ODT) 75 mg disintegrating tablet Take 1 dissolvable tablet by mouth at migraine onset. Take only 1 tablet per 24 hours. - propranolol ER (INDERAL LA) 80 mg 24 hr capsule Take 1 capsule by mouth once daily. - atogepant (QULIPTA) 60 mg tablet Take [...] by mouth. Problem List As Of Date 12/07/2024 Noted Resolved Chronic daily headache [R51.9] 10/11/2015 Chronic migraine without aura, with intractable* 5 Medication overuse headache [G44.40] 10/11/2015 Chronic neck [...] Status migrainosus [G43.901] 11/26/2023 Encounter Status:Closed by SALMA CALLEJAS on 12/08/24 Normal [facility] Basophils Auto (Bld) [#/Vol] on 10-21-2024 Basophils (Bld) [#/Vol] Automated basoph il count 0.0-0.1 [facility] Basophils/100 WBC Auto (Bld) on 10-21-2024 Basophils/100 WBC (Bld) Automated basophil % 0. 2-2.0 [facility] Cholesterol in LDL Calc [Mas s/Vol]on 10-21-2024 Cholesterol in LDL [Mass/Vol] Cholesterol in LDL [Mass/volume] in Serum or Plasma by calculation [facility] Comment on above: <100 mg/dl [id number] 0-129 mg/dl NEAR OR ABOVE [id number] mg/dl BORDERLINE [id number] mg/dl HIGH>190 mg/dl VERY HIGH Cholesterol in VLDL Calc [Ma ss/Vol]on 10-21-2024 Cholesterol in VLDL [Mass/Vol] Cholesterol in VLDL [Mass/volume] in Serum or Plasma by calculation [facility] Eosinophils/100 WBC Auto (Bl d)on 10-21-2024 Eosinophils/100 WBC (Bld) Automated eosinophil % Low 0.9-7.0 [facility] Erythrocyte distribution wid th Auto (RBC) [Ratio]on 10-21-2024 Erythrocyte distribution width (RBC) [Ratio] Erythrocyte distribution width [Ratio] by Automated count 11.0-15.0 [facility] Estimated glomerular filtrat ion rate (GFR) non- Americanon 10-21-2024 GFR/1.73 sq M.predicted among non-blacks MDRD (S/P/Bld) [Vol rate/Area] Estimated glomerular filtration rate (GFR) non- Low >=60 mL/min/1.73m 2 [facility] Globulin Calc (S) [Mass/Vol] on 10-21-2024 Globulin (S) [Mass/Vol] Serum globulin measurement by calculation (mass/volume) [facility] Glucose mean value [Mass/vol ume] in Blood Estimated from glycated hemoglobinon 10-21-2024 Average glucose Estimated from glycated hemoglobin (Bld) [Mass/Vol] Glucose mean value [Mass/volume] in Blood Estimated from glycated hemoglobin [facility] Hematocrit Auto (Bld) [Volum e fraction]on 10-21-2024 Hematocrit (Bld) [Volume fraction] Hematocrit [Volume Fraction] of Blood by Automated count 36.0-48.0 [facility] Hemoglobin [Mass/volume] in Bloodon 10-21-2024 Hemoglobin (Bld) [Mass/Vol] Hemoglobin [Mass/volume] in Blood 12.0-16.0 [facility] Laboratory - Chemistry and C hemistry - challengeon 10-21-2024 Albumin [Mass/Vol] 3.9 g/dL 3.4-5.0 [facility] ALP [Catalytic activity/Vol] 46 U/L 46-116 [facility] ALT [Catalytic activity/Vol] 20 U/L 14-59 [facility] AST [Catalytic activity/Vol] 18 U/L 15-37 [facility] Bilirubin [Mass/Vol] 0.7 mg/dL 0.2-1.0 [facility] Calcium [Mass/Vol] 9.2 mg/dL 8.5-10.1 [facility] Chloride [Moles/Vol] 107 mmol/L 98-107 [facility] Cholesterol [Mass/Vol] 196 mg/dL <=200 [facility] Cholesterol in HDL [Mass/Vol] 52 mg/dL 40-60 [facility] Comment on above: > or =60 mg/dl - LOW CARDIOVASCULAR RISK<40 mg/dl - HIGH CARDIOVASCULAR RISK CO2 [Moles/Vol] 29.7 mmol/L 21.0-32.0 [facility] Creatinine [Mass/Vol] 1.04 mg/dL High 0.55-1.02 [facility] GFR/1.73 sq M.predicted MDRD (S/P/Bld) [Vol rate/Area] mL/min/{1.73_m2} >=60 mL/min/1.73m 2 [facility] Glucose [Mass/Vol] 107 mg/dL High 74-106 [facility] Magnesium [Mass/Vol] 2.0 mg/dL 1.8-2.4 [facility] Potassium [Moles/Vol] 4.2 mmol/L 3.5-5.1 [facility] Protein [Mass/Vol] 7.2 g/dL 6.4-8.2 [facility] Sodium [Moles/Vol] 144 mmol/L 136-145 [facility] Triglyceride [Mass/Vol] 149 mg/dL <=150 [facility] Urate [Mass/Vol] 3.2 mg/dL 2.6-6.0 [facility] Urea nitrogen [Mass/Vol] 25.0 mg/dL High 7.0-18.0 [facility] Urea nitrogen/Creatinine [Mass ratio] 24.0 mg/mg [facility] Bilirubin Ql (U) Negative NEGATIVE [facility] Glucose (U) [Mass/Vol] Negative NEGATIVE [facility] Ketones Ql (U) 15 mg/dL Abnormal NEGATIVE [facility] pH (U) 6.0 [pH] 5.0-9.0 [facility] Specific gravity (U) [Rel density] 1.025 1.005-1.025 [facility] Urobilinogen Qn (U) 0.2 {Tara'U}/dL 0.2-1.0 [facility] Laboratory - Hematology and Cell countson 10-21-2024 HbA1c (Bld) [Mass fraction] 5.6 % 4.5-6.2 [facility] Comment on above: ADA RECOMMENDED LIMI T 4.0 - 6.0ADA THERAPEUTIC TARGET < 7.0ACTION SUGGESTED> 7.0 Immature granulocytes/100 WBC (Bld) 0.2 % 0.0-0.5 [facility] Laboratory - Specimen inform ationon 10-21-2024 Appearance (U) CLEAR CLEAR [facility] Color (U) LT. YELLOW YELLOW [facility] Laboratory - Urinalysison Leukocyte esterase Test strip Ql (U) TRACE Abnormal NEGATIVE [facility] Mucus Ql (Urine sed) NONE SEEN NONE SEEN [facility] Nitrite Ql (U) Negative NEGATIVE [facility] Protein (U) [Mass/Vol] 12.3 mg/dL High <=11.9 [facility] Protein Ql (U) Negative NEG/TRACE [facility] Leukocytes [#/volume] correc diana for nucleated erythrocytes in Blood by Automated counon 10-21-2024 WBC corrected for nucl RBC Auto (Bld) [#/Vol] Leukocytes [#/volume] corrected for nucleated erythrocytes in Blood by Automated coun High 4.0-11.0 [facility] Lymphocytes Auto (Bld) [#/Vo l]on 10-21-2024 Lymphocytes (Bld) [#/Vol] Lymphocytes [#/volume] in Blood by Automated count 1.2-3.8 [facility] Lymphocytes/100 WBC Auto (Bl d)on 10-21-2024 Lymphocytes/100 WBC (Bld) Lymphocytes/100 leukocytes in Blood by Automated count 20.5-60.0 [facility] MCH Auto (RBC) [Entitic mass ]on 10-21-2024 MCH (RBC) [Entitic mass] MCH [Entitic ma ss] by Automated count 26.7-34.0 [facility] MCHC Auto (RBC) [Mass/Vol]on 10-21-2024 MCHC (RBC) [Mass/Vol] MCHC [Mass/volume] by Automated count 29.9-35.2 [facility] MCV Auto (RBC) [Entitic vol] on 10-21-2024 MCV (RBC) [Entitic vol] MCV [Entitic vol ume] by Automated count 81.0-99.0 [facility] Monocytes Auto (Bld) [#/Vol] on 10-21-2024 Monocytes (Bld) [#/Vol] Automated blood monocyte count 0.3-0.8 [facility] Monocytes/100 WBC Auto (Bld) on 10-21-2024 Monocytes/100 WBC (Bld) Automated monocyte % 1. 7-12.0 [facility] Neutrophils Auto (Bld) [#/Vo l]on 10-21-2024 Neutrophils (Bld) [#/Vol] Neutrophils [#/volume] in Blood by Automated count High 1.4-6.5 [facility] Neutrophils/100 WBC Auto (Bl d)on 10-21-2024 Neutrophils/100 WBC (Bld) Automated neutrophil % 43.0-75.0 [facility] No Panel Informationon 10-21 25-Hydroxy Vitamin D Total 102.0 ng/mL [facility] Comment on above: <20 ng/mL Vit D defi cient20-<30 ng/mL Vit D haejekhxaoru59-074 ng/mL Vit D sufficient>100 ng/mL Potential Toxicity Eosinophils # (Auto) 0.0 10 3/uL 0.0-0.7 [facility] Immature Granulocyte # (Auto) 0.02 10 3/uL 0.00-0.03 [facility] Parathyroid Hormone (Intact) 22 pg/mL 15-65 [facility] Comment on above: Performed at: - [employer] [address] [id number] Director: Adam Layton PhD, Phone: [phone] Phosphorus Level 3.5 mg/dL 2.6-4.7 [facility] Urine Bacteria NONE SEEN #/HPF NONE SEEN [facility] Urine Occult Blood Negative NEGATIVE [facility] Urine Random Creatinine 119.04 mg/dL 20.00-300. 00 [facility] Urine RBC NONE SEEN #/HPF 0-2 [facility] Urine Squamous Epithelial Cells FEW #/LPF Abnormal NONE/RARE [facility] Urine WBC 0-2 #/HPF Abnormal NONE SEEN [facility] Platelet mean volume Auto (B ld) [Entitic vol]on 10-21-2024 Platelet mean volume (Bld) [Entitic vol] Platelet mean volume [Entitic volume] in Blood by Automated count 9.5-13.5 [facility] Platelets Auto (Bld) [#/Vol] on 10-21-2024 Platelets (Bld) [#/Vol] Platelets [#/vol ume] in Blood by Automated count 150-450 [facility] RBC Auto (Bld) [#/Vol]on RBC (Bld) [#/Vol] Erythrocytes [#/volume] in Blood by Automated count 4.20-5.40 [facility] Serum or plasma albumin/glob ulin mass ratioon 10-21-2024 Albumin/Globulin [Mass ratio] Serum or plasma albumin/globulin mass ratio [facility] Serum or plasma anion gap de terminationon 10-21-2024 Anion gap [Moles/Vol] Serum or plasma an ion gap determination [facility] Serum or plasma total choles terol/high density lipoprotein (HDL) cholesterol mass blanca 10-21-2024 Cholesterol.total/Choles terol in HDL [Mass ratio] Serum or plasma total cholesterol/high density lipoprotein (HDL) cholesterol mass rat [facility] Comment on above: 3.3 - 4.4 LOW RISK4. 4 - 7.1 AVERAGE RISK7.1 - 11.0 MODERATE RISK>11.0 HIGH RISK Urine protein/creatinine rat ioon 10-21-2024 Protein/Creatinine (U) [Ratio] Urine protein/creatinine ratio [facility] XR shoulder LT min 2V*on XR shoulder LT min 2V* [facility] [address] [place] [address] XRay Report Signed Patient: Myrtle Jones MR#: [id number] : 1965 Acct:[id number] Age/Sex: 59 / F ADM Date: 10/19/24 Loc: [facility] Room: Type: [facility] Attending Dr: Ralph Hoff DO Copies to: Ralph Hoff DO Ordering Provider: Ralph Hoff DO Date of Service: 10/19/24 XR/XR shoulder LT min 2V*: M25.512 - Pain in left shoulder LEFT SHOULDER - - 4 views CLINICAL HISTORY: Left shoulder pain for 5 months COMPARISON: None FINDINGS: Mild degenerative changes of the AC joint. Glenohumeral joint appears unremarkable without acute bony process. XR/XR shoulder LT min 2V* IMPRESSION: MILD DEGENERATIVE CHANGES WITHOUT ACUTE BONY PROCESS. Impression dictated by: Juan Wilkerson Jr., Erica10/19/2024 10:42 AM Dictation Location: [place] [address] Transcribed By: [facility] 10/19/24 104 Dictated By: Juan Wilkerson Jr, DO 10/19/24 1041 Signed By: 10/19/24 104 Normal [facility] MR SHOULDER LEFT WO IV CONTR Solomon 10-12-2024 MR SHOULDER LEFT WO IV CONTRAST EXAM: MR SHOULDER LEFT WO IV CONTRAST HISTORY: Shoulder pain and decreased range of motion. TECHNIQUE: Multiplanar multisequence MRI of the shoulder was performed Without contrast. COMPARISON: None available. FINDINGS: Mild degenerative changes of the acromioclavicular joint without undersurface osteophyte formation. The acromion is curved. Coracoclavicular ligament intact. No subacromial/subdeltoi d bursal fluid. Low-grade partial-thickness articular surface tearing of distal subscapularis tendon at and just proximal to the lesser tuberosity superimposed on mild tendinosis. Mild supraspinatus tendinosis. Infraspinatus and teres minor tendons are intact. No atrophy or fatty infiltration of the rotator cuff musculature. The intra-articular and extra-articular long head biceps tendon is intact. The biceps tendon resides within the bicipital groove. No labral tear identified. No well-defined or measurable cartilage defect. Small glenohumeral joint effusion . IMPRESSION: Low-grade partial-thickness articular surface tearing of distal subscapularis tendon at and just proximal to the lesser tuberosity superimposed on mild tendinosis. Mild supraspinatus tendinosis. ELECTRONICALLY SIGNED BY: Dario Hahn DO Normal Not Available Chas 10-11-2024 [facility] Telephone ([facility]) MYRTLE JONES ([id number]) 1965 F Date Time Provider Department 10/11/24 JACY CUEVA [facility]OPRX During your visit today, we recorded the following information about you: Jacy Cueva 10/11/2024 11:52 AM Signed Ambulatory Pharmacy Prior Authorization Note Provider Intervention Required?: No- Pharmacy completed on your behalf. Rx Plan: Other: [facility] Drug: NURTEC ODT 75 mg disintegrating tablet Cover My Meds Palafox: Done via Epic Determination: Approved Prior Authorization/Case #: [id number] Prior Authorization Expiration: 10/10/2025 Time to PA Submission in CMM: N/A Time to PA Determination in CMM: N/A Additional Information: PLEASE NOTE: Pt will need follow up office visit to review/document efficacy and tolerability of treatment before prior auth expiration. Please ensure a future follow up appt is scheduled with your patient. This will ensure no interruption in patient's ability to obtain medication refills. Prescriptions will now be processed through [facility] for determination of next steps. For questions relating to this submission, please contact [facility] at [phone] Allergies As of Date: 10/11/2024 Noted Allergy Reaction TOPAMAX (TOPIRAMATE) 05/09/2018 1 - Mental Status Change Date Reviewed: 10/04/2024 Reviewed by: Simona Carlson APRN.PIG CONVEYOR OPERATOR - Fully Assessed Reason for Visit: Insurance Authorization [[id number]] Cmt: NURTEC ODT 75 mg disintegrating tablet NURTEC ODT 75 mg disintegrating tablet [Other] Prescriptions as of 10/11/2024 - rimegepant (NURTEC ODT) 75 mg disintegrating tablet Take 1 dissolvable tablet by mouth at migraine onset. Take only 1 tablet per 24 hours. - propranolol ER (INDERAL LA) 80 mg 24 hr capsule Take 1 capsule by mouth once daily. - atogepant (QULIPTA) 60 mg tablet Take [...] by mouth. Problem List As Of Date 10/11/2024 Noted Resolved Chronic daily headache [R51.9] 10/11/2015 Chronic migraine without aura, with intractable* 5 Medication overuse headache [G44.40] 10/11/2015 Chronic neck [...] Status migrainosus [G43.901] 11/26/2023 Encounter Status:Closed by JACY CUEVA on 10/11/24 [facility] CNOVon 10-04-2024 CNOV Office Visit ([facility]) MYRTLE JONES ([id number]) 1965 F Date Time Provider Department 10/04/24 4:00 PM SIMONA CARLSON VAELAYNE During your visit today, we recorded the following information about you: Pulse Blood pressure Weight Height 74/minute 130/72 70 kg 1.702 m Simona Carlson APRN.PIG CONVEYOR OPERATOR 10/04/2024 4:27 PM Signed [facility] - Follow up [...] Impression and Plan from last visit: KIRSTIN 03/29/2024 with Me. Myrtle Jones is a 59-year-old female with history significant for chronic migraine, chronic neck pain (s/p fusion x2), occipital neuralgia and HTN. At her last visit she was to continue Qulipta and Ubrelvy. Interval Headache History: She has not seen benefit with Ubrelvy. It does not work fast enough and it does not seem strong enough to knock the migraine and keep it away. Her last migraine lasted about 3 days. Headache 1 Location: right and frontal Quality/Description: throbbing Associated Symptoms: Photophobia: yes Phonophobia: yes Nausea: yes Vomiting: yes - only when severe and if migraine lasts a long time Worse with activity: yes Number of migraine headache days/month: 3 Number of headache free days/month: 27 Duration of headaches with treatment: 1 hours Current preventive treatment: Qulipta, Propranolol, Magnesium Current abortive treatment: Ubrelvy Relieving factors: Medication, laying down, rest/sleep Aura: scotoma (Squiggly lines. Lasts about 30 minutes.) Headache status since the last visit: better Prior Therapies Duration of Use Dose Reason for Discontinuation Other Therapies Nerve blocks Analgesic Butalbital/acetaminop hen/caffeine (Fioricet) Hydrocodone/Acetamino phen (Vicodin, [place]) Anti-Convulsant Topiramate (Topamax, Trokendi XL, Qudexy) Anti-Depressant and Antipsychotic Amitriptyline (Elavil) Duloxetine (Cymbalta) Nortriptyline (Pamelor, Aventyl) Antiemetics Ondansetron Anti-Migraine Dihydroergotamine (DHE-45, Migranal) Rizatriptan (Maxalt) Sumatriptan (Imitrex, Sumavel) Zolmitriptan (Zomig) Blood Pressure Propranolol (Inderal) Timolol MABs Erenumab (Aimovig) Botulinum Toxin Onabotulimum Toxin A (Botox) Other Medications Prednisone Over the Counter Medications Acetaminophen (Tylenol) Acetaminophen/Aspirin /Caffeine (Excedrin, Goody?s) Ibuprofen (Advil, Motrin) PAST MEDICAL [...] Issues and questions to be addressed: Medications atogepant (QULIPTA) 60 mg tablet Take 1 tablet (60 mg) by mouth once daily. propranolol ER (INDERAL LA) 80 mg 24 hr capsule Take 1 capsule by mouth once daily. ubrogepant (UBRELVY) 100 mg tablet Take 1 tab at migraine onset. May repeat once in 2 hours as needed. 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 HEADACHE SCORES: 11/22/2023 03/22/2024 10/01/2024 Headache Questions ER visits since last office visit: 0 0 0 Hospital stays since last office visit 0 0 0 Limited ADLs in the last month: 8 2 3 Days missed from work or school in the last month: 0 1 0 Days headache pain free in the last month: 12 20 27 Days per month with ALL of the following symptoms - decreased productivity, light sensitivity and nausea: 8 (more content not included)... Normal [facility] MM screening mammo BI w/CADo n 08-18-2024 MM screening mammo BI w/CAD [facility] Main [place] [address] [place], [place] [id number] Mammography Report Signed Patient: Myrtle Jones MR#: [id number] : 1965 Acct:[id number] Age/Sex: 59 / F ADM Date: 08/18/24 Loc: [place] Room: Type: [facility] Attending Dr: Anand Garcia DO Copies to: Anand Garcia DO Ordering Provider: Anand Garcia DO Date of Service: 08/18/24 MM/MM screening mammo BI w/CAD: Z12.31 - Encounter for screening mammogram for malignant ... CLINICAL DATA: Screening for malignancy. BILATERAL SCREENING MAMMOGRAMS - FULL FIELD DIGITAL WITH TOMOSYNTHESIS AND CAD Tomosynthesis craniocaudal and mediolateral oblique views of both breasts were obtained using low- dose digital technique. Comparison is made to prior studies from May 28, 2020 through July 29, 2023. This examination was reviewed with the aid of CAD. There are scattered fibroglandular densities. Benign calcifications are visualized. There are no developing masses, typically malignant calcifications or architectural distortion. There has been no significant interval change. MM/MM screening mammo BI w/CAD IMPRESSION: NO MAMMOGRAPHIC EVIDENCE OF MALIGNANCY. ROUTINE FOLLOW-UP IS RECOMMENDED IN ONE YEAR. RESULT CODE: 2 Benign Findings(s) DENSITY CODE: 2 (approximately 25-50% glandular) FOLLOW UP: 1YR The false-negative rate of mammography is approximately 10-percent. Management of a palpable abnormality must be based on clinical grounds. Patient was entered into a reminder system with a target due date for the next mammogram. Impression dictated by: Glendy Martínez M.D.08/18/2024 3:43 PM Dictation Location: [facility] Transcribed By: [facility] 08/18/24 1543 Dictated By: Glendy Martínez MD 08/18/24 1536 Signed By: 08/18/24 154 [facility] CNPNon 07-20-2024 CNPN Telephone (MNOPRX) MYRTLE JONES ([id number]) 1965 F Date Time Provider Department 07/20/24 SALMA CALLEJAS [facility]OP[facility] During your visit today, we recorded the following information about you: Salma Callejas RN 07/20/2024 4:56 PM Signed [facility] received prescription(s) for Qulipta 60MG tablets . Benefits investigation was conducted, indicating that a prior authorization is required. PA was initiated and pending review through [facility] All pertinent clinical information was submitted to insurance. PA done via: [facility]- Palafox [id number] Salma Callejas RN [facility] P: , F: Salma Callejas RN 07/24/2024 8:58 AM Signed Ambulatory Pharmacy Prior Authorization Note Provider Intervention Required?: No- Pharmacy completed on your behalf. Rx Plan: Other: [facility] Drug: Qulipta 60MG tablets Cover My Meds Palafox: [id number] Determination: Approved Prior Authorization/Case #: [id number] Prior Authorization Expiration: 07/20/2025 Time to PA Submission in CMM: 15 [...] refills. Prescriptions will now be processed through [facility] for determination of next steps. For questions relating to this submission, please contact [facility] at [phone] Allergies As of Date: 07/20/2024 Noted Allergy Reaction TOPAMAX (TOPIRAMATE) 05/09/2018 1 - Mental Status Change Date Reviewed: 03/29/2024 Reviewed by: Simona Carlson APRN.PIG CONVEYOR OPERATOR - Fully Assessed Reason for Visit: Insurance Authorization [4504] Qulipta 60MG tablets [Other] Prescriptions as of 07/24/2024 - atogepant (QULIPTA) 60 mg tablet Take 1 tablet (60 mg) by mouth once daily. - propranolol ER (INDERAL LA) 80 mg 24 hr capsule Take 1 capsule by mouth once daily. - ubrogepant (UBRELVY) 100 mg tablet Take 1 tab at migraine onset. May repeat once in 2 hours as needed. - rosuvastatin (CRESTOR) 5 mg tablet Take [...] by mouth. Problem List As Of Date 07/20/2024 Noted Resolved Chronic daily headache [R51.9] 10/11/2015 Chronic migraine without aura, with intractable* 5 Medication overuse headache [G44.40] 10/11/2015 Chronic neck [...] Status migrainosus [G43.901] 11/26/2023 Encounter Status:Closed by SALMA CALLEJAS on 07/24/24 Normal [facility] Basophils Auto (Bld) [#/Vol] on 06-03-2024 Basophils (Bld) [#/Vol] 0.1 10 3/uL 0.0-0.1 [facility] Basophils/100 WBC Auto (Bld) on 06-03-2024 Basophils/100 WBC (Bld) 0.7 % 0.2-2.0 F [facility] Cholesterol in LDL Calc [Mas s/Vol]on 06-03-2024 Cholesterol in LDL [Mass/Vol] 95.0 mg/dL [facility] Comment on above: <100 mg/dl [id number] 0-129 mg/dl NEAR OR ABOVE [id number] mg/dl BORDERLINE BUIS628-611 mg/dl HIGH>190 mg/dl VERY HIGH Cholesterol in VLDL Calc [Ma ss/Vol]on 06-03-2024 Cholesterol in VLDL [Mass/Vol] 33.2 mg/dL [facility] Eosinophils/100 WBC Auto (Bl d)on 06-03-2024 Eosinophils/100 WBC (Bld) 0.0 % Low 0.9-7.0 [facility] Erythrocyte distribution wid th Auto (RBC) [Ratio]on 06-03-2024 Erythrocyte distribution width (RBC) [Ratio] 12.2 % 11.0-15.0 [facility] [facility] Estimated glomerular filtrat ion rate (GFR) non- Americanon 06-03-2024 GFR/1.73 sq M.predicted among non-blacks MDRD (S/P/Bld) [Vol rate/Area] 52 mL/min/{1.73_m2} Low >=60 [facility] Globulin Calc (S) [Mass/Vol] on 06-03-2024 Globulin (S) [Mass/Vol] 3.0 g/dL [facility] Glucose mean value [Mass/vol ume] in Blood Estimated from glycated hemoglobinon 06-03-2024 Average glucose Estimated from glycated hemoglobin (Bld) [Mass/Vol] 103 mg/dL [facility] Hematocrit Auto (Bld) [Volum e fraction]on 06-03-2024 Hematocrit (Bld) [Volume fraction] 36.6 % 36.0-48.0 [facility] Hemoglobin [Mass/volume] in Bloodon 06-03-2024 Hemoglobin (Bld) [Mass/Vol] 12.5 g/dL 12.0-16.0 [facility] Laboratory - Chemistry and C hemistry - challengeon 06-03-2024 Albumin [Mass/Vol] 3.5 g/dL 3.4-5.0 [facility] ALP [Catalytic activity/Vol] 52 U/L 46-116 [facility] ALT [Catalytic activity/Vol] 17 U/L 14-59 [facility] AST [Catalytic activity/Vol] 9 U/L Low 15-37 [facility] Bilirubin [Mass/Vol] 0.6 mg/dL 0.2-1.0 [facility] Calcium [Mass/Vol] 8.9 mg/dL 8.5-10.1 [facility] Chloride [Moles/Vol] 107 mmol/L 98-107 [facility] Cholesterol [Mass/Vol] 172 mg/dL <=200 [facility] Cholesterol in HDL [Mass/Vol] 44 mg/dL 40-60 [facility] Comment on above: > or =60 mg/dl - LOW CARDIOVASCULAR RISK<40 mg/dl - HIGH CARDIOVASCULAR RISK CO2 [Moles/Vol] 26.6 mmol/L 21.0-32.0 [facility] Creatinine [Mass/Vol] 1.09 mg/dL High 0.55-1.02 [facility] GFR/1.73 sq M.predicted MDRD (S/P/Bld) [Vol rate/Area] mL/min/{1.73_m2} >=60 [facility] Glucose [Mass/Vol] 105 mg/dL 74-106 [facility] Potassium [Moles/Vol] 3.9 mmol/L 3.5-5.1 [facility] Protein [Mass/Vol] 6.5 g/dL 6.4-8.2 [facility] Sodium [Moles/Vol] 143 mmol/L 136-145 [facility] Triglyceride [Mass/Vol] 166 mg/dL High <=150 [facility] TSH Qn 1.566 m[IU]/L 0.358-3.740 [facility] Urea nitrogen [Mass/Vol] 21.0 mg/dL High 7.0-18.0 [facility] Urea nitrogen/Creatinine [Mass ratio] 19.3 mg/mg [facility] Laboratory - Hematology and Cell countson 06-03-2024 HbA1c (Bld) [Mass fraction] 5.2 % 4.5-6.2 [facility] Comment on above: ADA RECOMMENDED LIMI T 4.0 - 6.0ADA THERAPEUTIC TARGET < 7.0ACTION SUGGESTED> 7.0 Immature granulocytes/100 WBC (Bld) 0.1 % 0.0-0.5 [facility] Leukocytes [#/volume] correc diana for nucleated erythrocytes in Blood by Automated counon 06-03-2024 WBC corrected for nucl RBC Auto (Bld) [#/Vol] 7.0 10 3/uL 4.0-11.0 [facility] Lymphocytes Auto (Bld) [#/Vo l]on 06-03-2024 Lymphocytes (Bld) [#/Vol] 2.3 10 3/uL 1.2-3.8 [facility] Lymphocytes/100 WBC Auto (Bl d)on 06-03-2024 Lymphocytes/100 WBC (Bld) 33.5 % 20.5-60.0 [facility] MCH Auto (RBC) [Entitic mass ]on 06-03-2024 MCH (RBC) [Entitic mass] 30.7 pg 26.7-34.0 [facility] MCHC Auto (RBC) [Mass/Vol]on 06-03-2024 MCHC (RBC) [Mass/Vol] 34.2 g/dL 29.9-35.2 [facility] MCV Auto (RBC) [Entitic vol] on 06-03-2024 MCV (RBC) [Entitic vol] 89.9 fL 81.0-99.0 [facility] Monocytes Auto (Bld) [#/Vol] on 06-03-2024 Monocytes (Bld) [#/Vol] 0.5 10 3/uL 0.3-0.8 [facility] Monocytes/100 WBC Auto (Bld) on 06-03-2024 Monocytes/100 WBC (Bld) 7.3 % 1.7-12.0 [facility] Neutrophils Auto (Bld) [#/Vo l]on 06-03-2024 Neutrophils (Bld) [#/Vol] 4.1 10 3/uL 1.4-6.5 [facility] Neutrophils/100 WBC Auto (Bl d)on 06-03-2024 Neutrophils/100 WBC (Bld) 58.4 % 43.0-75.0 [facility] No Panel Informationon 06-03 Eosinophils # (Auto) 0.0 10 3/uL 0.0-0.7 [facility] Immature Granulocyte # (Auto) 0.01 10 3/uL 0.00-0.03 [facility] Platelet mean volume Auto (B ld) [Entitic vol]on 06-03-2024 Platelet mean volume (Bld) [Entitic vol] 10.3 fL 9.5-13.5 [facility] Platelets Auto (Bld) [#/Vol] on 06-03-2024 Platelets (Bld) [#/Vol] 266 10 3/uL 150-450 [facility] RBC Auto (Bld) [#/Vol]on RBC (Bld) [#/Vol] 4.07 10 6/uL Low 4.20-5.40 [facility] Serum or plasma albumin/glob ulin mass ratioon 06-03-2024 Albumin/Globulin [Mass ratio] 1.2 {ratio} [facility] Serum or plasma anion gap de terminationon 06-03-2024 Anion gap [Moles/Vol] 13.3 mmol/L [facility] Serum or plasma total choles terol/high density lipoprotein (HDL) cholesterol mass blanca 06-03-2024 Cholesterol.total/Choles terol in HDL [Mass ratio] 3.9 {ratio} [facility] Comment on above: 3.3 - 4.4 LOW RISK4. 4 - 7.1 AVERAGE RISK7.1 - 11.0 MODERATE RISK>11.0 HIGH RISK [facility] 03-03-2024 [facility] HNO ID: [id number] Author: ELO DUNAWAY MRI Tech Service: Radiology Author Type: Telephone Repairer Type: Allied Health Filed: 03/03/2024 12:43 Note [...] PATIENT PRESENTS WITH AN IMPLANTABLE OR ATTACHED CALCULATION CLERK: No RADIOLOGY DEPARTMENT: MR; Exam(s) Completed: Head: Routine Brain [facility] [place] MRA PERIPHERAL IV DATA: Not applicable SIGNED BY: WILBUR Jansen March 03, 2024 12:42 PM [facility] MR Brain WO contraston 03-03 * * *Final Report* * * DATE OF EXAM: Mar 03 2024 12:57PM [facility] 0294 - MRI BRAIN WO IVCON / PROCEDURE REASON: multiple diagnoses * * * * Physician Interpretation * * * * EXAMINATION: MRA BRAIN WO IVCON, MRI BRAIN WO IVCON CLINICAL HISTORY: [place] headache Dissection of vertebral artery (HCC) TECHNIQUE: Routine noncontrast MRI brain protocol including diffusion and gradient echo images. Intracranial 3D ivfw-wj-prywca MRA with post-processing performed at the modality [...] PICA, normal variant. Basilar artery is patent. fire supervisor are patent without high-grade luminal narrowing. [facility] Provider, [facility] - 03/03/2024 * * *Final Report* * * DATE OF EXAM: Mar 03 2024 12:57PM [facility] 0294 - MRI BRAIN WO IVCON / PROCEDURE REASON: multiple diagnoses * * * * Physician Interpretation * * * * EXAMINATION: MRA BRAIN WO IVCON, MRI BRAIN WO IVCON CLINICAL HISTORY: [place] headache Dissection of vertebral artery (HCC) TECHNIQUE: Routine noncontrast MRI brain protocol including diffusion and gradient echo images. Intracranial 3D utvn-tr-rniswe MRA with post-processing performed at the modality [...] PICA, normal variant. Basilar artery is patent. fire supervisor are patent without high-grade luminal narrowing. IMPRESSION IMPRESSION: No acute intracranial abnormality including no evidence of an acute or recent brain parenchymal infarct. Patent intracranial cerebral arterial circulation by MRA. Brick Loader: ELEAZAR Transcribe Date/Time: Mar 03 2024 1:06P Dictated by : ROSANA SANCHEZ DO This examination was interpreted and the report reviewed and electronically signed by: ROSANA SANCHEZ DO on Mar 03 2024 1:11PM [facility] MRA BRAIN WO IVCONon 05-03-2 024 MRA BRAIN WO IVCON * * *Final Report* * * DATE OF EXAM: Mar 03 2024 12:57PM [facility] 0272 - MRA BRAIN WO IVCON / PROCEDURE REASON: multiple diagnoses * * * * Physician Interpretation * * * * EXAMINATION: MRA BRAIN WO IVCON, MRI BRAIN WO IVCON CLINICAL HISTORY: [place] headache Dissection of vertebral artery (HCC) TECHNIQUE: Routine noncontrast MRI brain protocol including diffusion and gradient echo images. Intracranial 3D bqck-ep-zkguvm MRA with post-processing performed at the modality [...] PICA, normal variant. Basilar artery is patent. fire supervisor are patent without high-grade luminal narrowing. IMPRESSION: No acute intracranial abnormality including no evidence of an acute or recent brain parenchymal infarct. Patent intracranial cerebral arterial circulation by MRA. Brick Loader: E[employer]AZ[employer] Transcribe Date/Time: Mar 03 2024 1:06P Dictated by : ROSANA SANCHEZ DO This examination was interpreted and the report reviewed and electronically signed by: ROSANA SANCHEZ DO on Mar 03 2024 1:11PM EST [id number] N Normal [facility] MRA Head vessels WO contrast on 03-03-2024 * * *Final Report* * * DATE OF EXAM: Mar 03 2024 12:57PM [facility] 0272 - MRA BRAIN WO IVCON / PROCEDURE REASON: multiple diagnoses * * * * Physician Interpretation * * * * EXAMINATION: MRA BRAIN WO IVCON, MRI BRAIN WO IVCON CLINICAL HISTORY: [place] headache Dissection of vertebral artery (HCC) TECHNIQUE: Routine noncontrast MRI brain protocol including diffusion and gradient echo images. Intracranial 3D gsxo-nb-giszse MRA with post-processing performed at the modality [...] PICA, normal variant. Basilar artery is patent. fire supervisor are patent without high-grade luminal narrowing. [facility] Provider, [facility] - 03/03/2024 * * *Final Report* * * DATE OF EXAM: Mar 03 2024 12:57PM [facility] 0272 - MRA BRAIN WO IVCON / PROCEDURE REASON: multiple diagnoses * * * * Physician Interpretation * * * * EXAMINATION: MRA BRAIN WO IVCON, MRI BRAIN WO IVCON CLINICAL HISTORY: [place] headache Dissection of vertebral artery (HCC) TECHNIQUE: Routine noncontrast MRI brain protocol including diffusion and gradient echo images. Intracranial 3D kuna-zf-boscrq MRA with post-processing performed at the modality [...] PICA, normal variant. Basilar artery is patent. fire supervisor are patent without high-grade luminal narrowing. IMPRESSION IMPRESSION: No acute intracranial abnormality including no evidence of an acute or recent brain parenchymal infarct. Patent intracranial cerebral arterial circulation by MRA. Brick Loader: ELEAZAR Transcribe Date/Time: Mar 03 2024 1:06P Dictated by : ROSANA SANCHEZ DO This examination was interpreted and the report reviewed and electronically signed by: ROSANA SANCHEZ DO on Mar 03 2024 1:11PM [facility] MRI BRAIN WO IVCONon [id number] 024 MRI BRAIN WO IVCON * * *Final Report* * * DATE OF EXAM: Mar 03 2024 12:57PM [facility] 0294 - MRI BRAIN WO IVCON / PROCEDURE REASON: multiple diagnoses * * * * Physician Interpretation * * * * EXAMINATION: MRA BRAIN WO IVCON, MRI BRAIN WO IVCON CLINICAL HISTORY: [place] headache Dissection of vertebral artery (HCC) TECHNIQUE: Routine noncontrast MRI brain protocol including diffusion and gradient echo images. Intracranial 3D udgl-la-xqjuhb MRA with post-processing performed at the modality [...] PICA, normal variant. Basilar artery is patent. fire supervisor are patent without high-grade luminal narrowing. IMPRESSION: No acute intracranial abnormality including no evidence of an acute or recent brain parenchymal infarct. Patent intracranial cerebral arterial circulation by MRA. Brick Loader: ELEAZAR Transcribe Date/Time: Mar 03 2024 1:06P Dictated by : ROSANA SANCHEZ DO This examination was interpreted and the report reviewed and electronically signed by: ROSANA SANCHEZ DO on Mar 03 2024 1:11PM EST [id number] N Normal [facility] No Panel Informationon 03-03 IMPRESSION: No acute intracranial abnormality including no evidence of an acute or recent brain parenchymal infarct. Patent intracranial cerebral arterial circulation by MRA. Brick Loader: [facility] Transcribe Date/Time: Mar 03 2024 1:06P Dictated by : ROSANA SANCHEZ DO This examination was interpreted and the report reviewed and electronically signed by: ROSANA SANCHEZ DO on Mar 03 2024 1:11PM EST [facility] Radiology Study observation (narrative) [facility] No Panel InformationOrdered By: [facility] Provider on 03-03-2024 [facility] 03-02-2024 CNPN Telephone (RGFV) MYRTLE JONES ([id number]) 1965 F Date Time Provider Department 03/02/24 [...] [R51.9] 10/11/2015 Chronic migraine without aura, with intractable* 5 Medication overuse headache [G44.40] 10/11/2015 Chronic neck [...] Encounter Status:Closed by DEB JERNIGAN on 03/02/24 [facility] PTH INTACTon 01-04-2023 PTH, Intact 27 pg/mL Normal 15-65 [facility] Comment on above: Performed By: #### P THINT #### [facility] [address] [place] [address] Dr. Angus Hernandez HEMOGLOBIN AND HEMATOCRITon 01-02-2023 Hematocrit (Bld) [Volume fraction] 37.2 % Normal 36.0-48.0 [facility] Comment on above: Performed By: #### H GBHCT #### [facility] [address] [place] [address] Dr. Angus Hernandez Hemoglobin (Bld) [Mass/Vol] 12.9 g/dL Normal 12.0-16.0 [facility] Comment on above: Performed By: #### H GBHCT #### [facility] [address] [place] [address] Dr. Angus Hernandez HEMOGRAM AND PLATELon 2022 Hematocrit (Bld) [Volume fraction] 37.2 % Normal 36.0-48.0 [facility] Comment on above: Performed By: #### P THINT #### [facility] [address] [place] [address] Dr. Angus Hernandez Hemoglobin (Bld) [Mass/Vol] 12.9 g/dL Normal 12.0-16.0 [facility] Comment on above: Performed By: #### P THINT #### [facility] [address] [address] [address] Angus Hernandez MCH (RBC) [Entitic mass] 29.6 pg Normal 26.7-34.0 [facility] Comment on above: Performed By: #### P THINT #### [facility] [address] [place] [address] Dr. Angus Hernandez MCHC (RBC) [Mass/Vol] 32.2 g/dL Normal 29.9-35.2 [facility] Comment on above: Performed By: #### P THINT #### [facility] [address] [place] [address] Dr. Angus Hernandez MCV (RBC) [Entitic vol] 91.7 fL Normal 81.0-99.0 [facility] Comment on above: Performed By: #### P THINT #### [facility] [address] [place] [address] Dr. Angus Hernandez PLT 294 103/ul Normal 150-450 [facility] Comment on above: Performed By: #### P THINT #### [facility] [address] [place] [address] Dr. Angus Hernandez RBC 4.33 106/ul Normal 4.20-5.40 [facility] Comment on above: Performed By: #### P THINT #### [facility] [address] [place] [address] Dr. Angus Hernandez WBC 6.8 103/ul Normal 4.0-11.0 [facility] Comment on above: Performed By: #### P THINT #### [facility] [address] [place] [address] Dr. Angus Hernandez MAGNESIUMon 01-02-2023 Magnesium [Mass/Vol] 1.6 mg/dL Critically low 1.8-2.4 [facility] Comment on above: Performed By: #### H H #### [facility] [address] [place] [address] Dr. Angus Hernandez RENAL FUNCTION PANELon 01-02 Albumin [Mass/Vol] 3.9 g/dL Normal 3.4-5.0 [facility] Comment on above: Performed By: #### H H #### [facility] [address] [place] [address] Dr. Angus Hernandez Calcium [Mass/Vol] 8.9 mg/dL Normal 8.5-10.1 [facility] Comment on above: Performed By: #### H H #### [facility] [address] [place] [address] Dr. Angus Hernandez Chloride [Moles/Vol] 110 mmol/L Critically high 98-107 [facility] Comment on above: Performed By: #### H H #### [facility] [address] [place] [address] Dr. Angus Hernandez CO2 [Moles/Vol] 24.1 mmol/L Normal 21.0-32.0 [facility] Comment on above: Performed By: #### H H #### [facility] [address] [place] [address] Dr. Angus Hernandez Creatinine [Mass/Vol] 1.16 mg/dL Critically high 0.55-1.02 [facility] Comment on above: Performed By: #### H H #### [facility] [address] [place] [address] Dr. Angus Hernandez EGFR-AF SUDANESE 59 mL/min/1.73m2 Critically low >=60 [facility] Comment on above: Performed By: #### H H #### [facility] [address] [place] [address] Dr. Angus Hernandez EGFR-NON AF SUDANESE 49 mL/min/1.73m2 Critically low >=60 [facility] Comment on above: Performed By: #### H H #### [facility] [address] [place] [address] Dr. Angus Hernandez Glucose [Mass/Vol] 108 mg/dL Critically high 74-106 [facility] Comment on above: Performed By: #### H H #### [facility] [address] [place] [address] Dr. Angus Hernandez Phosphate [Mass/Vol] 3.4 mg/dL Normal 2.6-4.7 [facility] Comment on above: Performed By: #### H H #### [facility] [address] [place] [address] Dr. Angus Hernandez Potassium [Moles/Vol] 4.4 mmol/L Normal 3.5-5.1 [facility] Comment on above: Performed By: #### H H #### [facility] [address] [place] [address] Dr. Angus eHrnandez Sodium [Moles/Vol] 146 mmol/L Critically high 136-145 [facility] Comment on above: Performed By: #### H H #### [facility] [address] [place] [address] Dr. Angus Hernandez Urea nitrogen [Mass/Vol] 17.0 mg/dL Normal 7.0-18.0 [facility] Comment on above: Performed By: #### H H #### [facility] [address] [place] [address] Dr. Angus Hernandez UA RANDOM W/MICROSCOPICon BACTERIA NONE SEEN Normal NONE SEEN [facility] Comment on above: Performed By: #### U AMIC #### [facility] [address] [place] [address] Dr. Angus Hernandez Bilirubin Ql (U) Negative Normal NEGATIVE [facility] Comment on above: Performed By: #### U AMIC #### [facility] [address] [place] [address] Dr. Angus Hernandez CAST NONE SEEN Normal NONE SEEN [facility] Comment on above: Performed By: #### U AMIC #### [facility] [address] [place] [address] Dr. Angus Hernandez Clarity (U) CLEAR Normal CLEAR [facility] Comment on above: Performed By: #### U AMIC #### [facility] [address] [place] [address] Dr. Angus Hernandez Color (U) LT. YELLOW Normal YELLOW [facility] Comment on above: Performed By: #### U AMIC #### [facility] [address] [place] [address] Dr. Angus Hernandez Crystals LM Nom (Urine sed) NONE SEEN Normal NONE SEEN [facility] Comment on above: Performed By: #### U AMIC #### [facility] [address] [address] [address] Angus Hernandez Epithelial cells LM Ql (Urine sed) FEW Abnormal NONE SEEN /RARE [facility] Comment on above: Performed By: #### U AMIC #### [facility] [address] [address] [address] Angus Hernandez Glucose Ql (U) Negative Normal NEGATIVE [facility] Comment on above: Performed By: #### U AMIC #### [facility] [address] [address] [address] Angus Hernandez Hemoglobin Ql (U) Negative Normal NEGATIVE [facility] Comment on above: Performed By: #### U AMIC #### [facility] [address] [place] [address] Dr. Angus Hernandez Ketones Ql (U) Negative Normal NEGATIVE [facility] Comment on above: Performed By: #### U AMIC #### [facility] [address] [address] [address] Angus Hernandez LEUKOCYTES Negative Normal NEGATIVE [facility] Comment on above: Performed By: #### U AMIC #### [facility] [address] [place] [address] Dr. Angus Hernandez MUCOUS MODERATE Abnormal NONE SEEN [facility] Comment on above: Performed By: #### U AMIC #### [facility] [address] [address] [address] Angus Hernandez Nitrite Ql (U) Negative Normal NEGATIVE [facility] Comment on above: Performed By: #### U AMIC #### [facility] [address] [address] [address] Angus Hernandez pH (U) 5.5 [pH] Normal 5-9 [facility] Comment on above: Performed By: #### U AMIC #### [facility] [address] [address] [address] Angus Hernandez RBC NONE SEEN Abnormal 0-2 [facility] Comment on above: Performed By: #### U AMIC #### [facility] [address] [address] [address] Angus Hernandez SPEC GRAVITY 1.025 Normal 1.005-<=1.[address] [facility] Comment on above: Performed By: #### U AMIC #### [facility] [address] [address] [address] Angus Hernandez UA PROTEIN Negative Normal NEGATIVE/ TRACE [facility] Comment on above: Performed By: #### U AMIC #### [facility] [address] [address] [address] Angus Hernandez Urobilinogen Qn (U) 0.2 {Tara'U}/dL Normal 0.2 - 1. 0 [facility] Comment on above: Performed By: #### U AMIC #### [facility] [address] [place] [address] Dr. Angus Hernandez WBC NONE SEEN Normal NONE SEEN [facility] Comment on above: Performed By: #### U AMIC #### [facility] [address] [place] [address] Dr. Angus Hernandez URIC ACID SERUMon 01-02-2023 Urate [Mass/Vol] 4.7 mg/dL Normal 2.6-6.0 [facility] Comment on above: Performed By: #### H H #### [facility] [address] [place] [address] Dr. Angus Hernandez URINE T PROTEIN CREAT RATIOo n 01-02-2023 Protein (U) [Mass/Vol] 10.4 mg/dL Normal <=12.0 [facility] Comment on above: Performed By: #### H GBHCT #### [facility] [address] [place] [address] Dr. Angus Hernandez UR PROT CREAT RAT 0.[address] [facility] Comment on above: Performed By: #### H GBHCT #### [facility] [address] [place] [address] Dr. Angus Hernandez URINE CREAT 131.12 mg/dL Normal 20.00-300.00 [facility] Comment on above: Performed By: #### H GBHCT #### [facility] [address] [address] [address] Angus Hernandez VITAMIN D 25 OHon 01-02-2023 VIT D 25-OH 115.2 ng/mL Normal [facility] Comment on above: Performed By: #### H GBHCT #### [facility] [address] [address] [address] Angus Hernandez VIT D RANGES SEE BELOW Normal [facility] Comment on above: Result Comment: <20 ng/mL Vit D deficient 20 - <30 ng/mL Vit D insufficient 30 - 100 ng/mL Vit D sufficient >100 ng/mL Potential Toxicity Performed By: #### H GBHCT #### [facility] [address] [address] [address] Angus Hernandez MR Cervical spine WO contras ton 11-16-2022 IMPRESSION: Postoperative and spondylotic changes without high-grade bony canal or foraminal compromise, as detailed. Anatomic Variant: None. Assume 7 cervical vertebrae with counting from the craniocervical junction. Brick Loader: [facility] Transcribe Date/Time: Nov 16 2022 11:21A Dictated by : ROSANA FUNK MD This examination was interpreted and the report reviewed and electronically signed by: ROSANA FUNK MD on Nov 16 2022 11:31AM [facility] * * *Final Report* * * DATE OF EXAM: Nov 16 2022 11:16AM [facility] 0297 - MRI CERVICAL SPINE WO IVCON [...] contact. Patent foramina. C3-C4: Shallow disc/osteophyte complex approximating/abuttin g the ventral cord. Mild right and moderate left foraminal stenosis due to uncovertebral and facet hypertrophy. C4-C5: Diffuse disc bulging approximating/abuttin g the ventral cord. Mild-moderate bilateral foraminal stenosis due to uncovertebral and facet hypertrophy. C5-C6: Canal and foramina are patent. C6-C7: Moderate right foraminal stenosis due to uncovertebral and facet hypertrophy. Patent canal and left foramen. C7-T1: Canal and foramina are patent. No high-grade canal or foraminal compromise in the imaged thoracic spine to the level of T3-4. [facility] Provider, [facility] - 11/16/2022 * * *Final Report* * * DATE [...] contact. Patent foramina. C3-C4: Shallow disc/osteophyte complex approximating/abuttin g the ventral cord. Mild right and moderate left foraminal stenosis due to uncovertebral and facet hypertrophy. C4-C5: Diffuse disc bulging approximating/abuttin g the ventral cord. Mild-moderate bilateral foraminal stenosis due to uncovertebral and facet hypertrophy. C5-C6: Canal and foramina are patent. C6-C7: Moderate right foraminal stenosis due to uncovertebral and facet hypertrophy. Patent canal and left foramen. C7-T1: Canal and foramina are patent. No high-grade canal or foraminal compromise in the imaged thoracic spine to the level of T3-4. IMPRESSION IMPRESSION: Postoperative and spondylotic changes without high-grade bony canal or foraminal compromise, as detailed. Anatomic Variant: None. Assume 7 cervical vertebrae with counting from the craniocervical junction. Brick Loader: ELEAZAR Transcribe Date/Time: Nov 16 2022 11:21A Dictated by : ROSANA FUNK MD This examination was interpreted and the report reviewed and electronically signed by: ROSANA FUNK MD on Nov 16 2022 11:31AM EST [facility] Radiology Study observation (narrative) [facility] Cervical spine WO contras tOrdered By: Ccf Provider on 11-16-2022 [facility] CBC AUTO DIFFon 11-14-2022 BASO # 0.0 103/ul Normal 0.0-0.1 [facility] Comment on above: Performed By: #### H GBHCT #### [facility] [address] [place] [address] Dr. Angus Hernandez Basophils/100 WBC (Bld) 0.5 % Normal 0.2-2.0 T [facility] Comment on above: Performed By: #### H GBHCT #### [facility] [address] [place] [address] Dr. Angus Hernandez EO # 0.0 103/ul Normal 0.0-0.7 [facility] Comment on above: Performed By: #### H GBHCT #### [facility] [address] [address] [address] Angus Hernandez Eosinophils/100 WBC (Bld) 0.0 % Critically low 0.9-7.0 [facility] Comment on above: Performed By: #### H GBHCT #### [facility] [address] [place] [address] Dr. Angus Hernandez Erythrocyte distribution width (RBC) [Ratio] 12.7 % Normal 11.0-15.0 [facility] Comment on above: Performed By: #### H GBHCT #### [facility] [address] [place] [address] Dr. Angus Hernandez Hematocrit (Bld) [Volume fraction] 38.1 % Normal 36.0-48.0 [facility] Comment on above: Performed By: #### H GBHCT #### [facility] [address] [place] [address] Dr. Angus Hernandez Hemoglobin (Bld) [Mass/Vol] 13.1 g/dL Normal 12.0-16.0 [facility] Comment on above: Performed By: #### H GBHCT #### [facility] [address] [place] [address] Dr. Angus Hernandez IG # 0.02 10e3/ul Normal 0.00-0.03 [facility] Comment on above: Performed By: #### H GBHCT #### [facility] [address] [place] [address] Dr. Angus Hernandez IG % 0.3 % Normal 0.0-0.5 [facility] Comment on above: Performed By: #### H GBHCT #### [facility] [address] [place] [address] Dr. Angus Hernandez LYMPH # 2.8 103/ul Normal 1.2-3.8 [facility] Comment on above: Performed By: #### H GBHCT #### [facility] [address] [place] [address] Dr. Angus Hernandez Lymphocytes/100 WBC (Bld) 36.3 % Normal 20.5-60.0 [facility] Comment on above: Performed By: #### H GBHCT #### [facility] [address] [address] [address] Angus Hernandez MANUAL DIFF REQ NO Normal [facility] Comment on above: Performed By: #### H GBHCT #### [facility] [address] [address] [address] Angus Hernandez MCH (RBC) [Entitic mass] 29.4 pg Normal 26.7-34.0 [facility] Comment on above: Performed By: #### H GBHCT #### [facility] [address] [address] [address] Angus Hernandez MCHC (RBC) [Mass/Vol] 34.4 g/dL Normal 29.9-35.2 [facility] Comment on above: Performed By: #### H GBHCT #### [facility] [address] [place] [address] Dr. Angus Hernandez MCV (RBC) [Entitic vol] 85.6 fL Normal 81.0-99.0 [facility] Comment on above: Performed By: #### H GBHCT #### [facility] [address] [address] [address] Angus Hernandez MONO # 0.5 103/ul Normal 0.3-0.8 [facility] Comment on above: Performed By: #### H GBHCT #### [facility] [address] [place] [address] Dr. Angus Hernandez Monocytes/100 WBC (Bld) 7.1 % Normal 1.7-12.0 [facility] Comment on above: Performed By: #### H GBHCT #### [facility] [address] [address] [address] Angus Hernandez NEUT # 4.3 103/ul Normal 1.4-6.5 [facility] Comment on above: Performed By: #### H GBHCT #### [facility] [address] [place] [address] Dr. Angus Hernandez Neutrophils/100 WBC (Bld) 55.8 % Normal 43.0-75.0 [facility] Comment on above: Performed By: #### H GBHCT #### [facility] [address] [address] [address] Angus Hernandez Platelet mean volume (Bld) [Entitic vol] 10.4 fL Normal 9.5-13.5 [facility] Comment on above: Performed By: #### H GBHCT #### [facility] [address] [address] [address] Angus Hernandez PLT 295 103/ul Normal 150-450 [facility] Comment on above: Performed By: #### H GBHCT #### [facility] [address] [address] [address] Angus Hernandez RBC 4.45 106/ul Normal 4.20-5.40 [facility] Comment on above: Performed By: #### H GBHCT #### [facility] [address] [address] [address] Angus Hernandez WBC 7.6 103/ul Normal 4.0-11.0 [facility] Comment on above: Performed By: #### H GBHCT #### [facility] [address] [address] [address] Angus Hernandez GLYCOHEMOGLOBIN A1Con 2022 ADA RECOMMENDATION SEE BELOW Normal [facility] Comment on above: Result Comment: ADA RECOMMENDED LIMIT 4.0 - 6.0 ADA THERAPEUTIC TARGET < 7.0 ACTION SUGGESTED > 7.0 Performed By: #### P THINT #### [facility] [address] [address] [address] Angus Hernandez Glucose [Mass/Vol] 103 mg/dL Normal [facility] Comment on above: Performed By: #### P THINT #### [facility] [address] [address] [address] Angus Hernandez HbA1c (Bld) [Mass fraction] 5.2 % Normal 4.5-6.2 [facility] Comment on above: Performed By: #### P THINT #### [facility] [address] [address] [address] Angus Hernandez LIPID PROFILEon 11-14-2022 CHOL-HDL RATIO NORM SEE BELOW Normal [facility] Comment on above: Result Comment: 3.3 - 4.4 LOW RISK 4.4 - 7.1 AVERAGE RISK 7.1 - 11.0 MODERATE RISK >11.0 HIGH RISK Performed By: #### P THINT #### [facility] [address] [address] [address] Angus Hernandez Cholesterol [Mass/Vol] 195 mg/dL Normal <=200 [facility] Comment on above: Performed By: #### P THINT #### [facility] [address] [address] [address] Angus Hernandez Cholesterol in HDL [Mass/Vol] 42 mg/dL Normal 40-60 [facility] Comment on above: Performed By: #### P THINT #### [facility] [address] [address] [address] Angus Hernandez Cholesterol in LDL [Mass/Vol] 107.0 mg/dL Normal [facility] Comment on above: Performed By: #### P THINT #### [facility] [address] [address] [address] Angus Hernandez Cholesterol.total/Choles terol in HDL [Mass ratio] 4.6 {ratio} Normal [facility] Comment on above: Performed By: #### P THINT #### [facility] [address] [address] [address] Angus Hernandez HDL NORMAL > or = 60 mg/dl - LO W CARDIOVASCULAR RISK <40 mg/dl - HIGH CARDIOVASCULAR RISK Normal [facility] Comment on above: Performed By: #### P THINT #### [facility] [address] [address] [address] Angus Hernandez LDL CALC NORMAL SEE BELOW Normal [facility] Comment on above: Result Comment: <100 mg/dl OPTIMAL 100 - 129 mg/dl NEAR OR ABOVE OPTIMAL 130 - 159 mg/dl BORDERLINE HIGH 160 - 189 mg/dl HIGH >190 mg/dl VERY HIGH Performed By: #### P THINT #### [facility] [address] [address] [address] Angus Hernandez Triglyceride [Mass/Vol] 230 mg/dL Critically high <=150 [facility] Comment on above: Performed By: #### P THINT #### [facility] [address] [place] [address] Dr. Angus Hernandez VLDL CALC 46.0 mg/dL Normal [facility] Comment on above: Performed By: #### P THINT #### [facility] [address] [place] [address] Dr. Angus Hernandez PROF 14(COMP METB)on 023 Albumin [Mass/Vol] 3.9 g/dL Normal 3.4-5.0 [facility] Comment on above: Performed By: #### P THINT #### [facility] [address] [place] [address] Dr. Angus Hernandez Albumin/Globulin [Mass ratio] 1.1 {ratio} Normal [facility] Comment on above: Performed By: #### P THINT #### [facility] [address] [place] [address] Dr. Angus Hernandez ALP [Catalytic activity/Vol] 58 U/L Normal 46-116 [facility] Comment on above: Performed By: #### P THINT #### [facility] [address] [place] [address] Dr. Angus Hernandez ALT [Catalytic activity/Vol] 14 U/L Normal 14-59 [facility] Comment on above: Performed By: #### P THINT #### [facility] [address] [place] [address] Dr. Angus Hernandez Anion gap [Moles/Vol] 11.3 mmol/L Normal [facility] Comment on above: Performed By: #### P THINT #### [facility] [address] [place] [address] Dr. Angus Hernandez AST [Catalytic activity/Vol] 20 U/L Normal 15-37 [facility] Comment on above: Performed By: #### P THINT #### [facility] [address] [place] [address] Dr. Angus Hernandez Bilirubin [Mass/Vol] 0.7 mg/dL Normal 0.2-1.0 [facility] Comment on above: Performed By: #### P THINT #### [facility] [address] [address] [address] Angus Hernandez Calcium [Mass/Vol] 9.2 mg/dL Normal 8.5-10.1 [facility] Comment on above: Performed By: #### P THINT #### [facility] [address] [address] [address] Angus Hernandez Chloride [Moles/Vol] 106 mmol/L Normal 98-107 [facility] Comment on above: Performed By: #### P THINT #### [facility] [address] [address] [address] Angus Hernandez CO2 [Moles/Vol] 28.8 mmol/L Normal 21.0-32.0 [facility] Comment on above: Performed By: #### P THINT #### [facility] [address] [address] [address] Angus Hernandez Creatinine [Mass/Vol] 1.15 mg/dL Critically high 0.55-1.02 [facility] Comment on above: Performed By: #### P THINT #### [facility] [address] [address] [address] Angus Hernandez EGFR-AF SUDANESE 59 mL/min/1.73m2 Critically low >=60 [facility] Comment on above: Performed By: #### P THINT #### [facility] [address] [address] [address] Angus Hernandez EGFR-NON AF SUDANESE 49 mL/min/1.73m2 Critically low >=60 [facility] Comment on above: Performed By: #### P THINT #### [facility] [address] [address] [address] Angus Hernandez Globulin (S) [Mass/Vol] 3.4 g/dL Normal [facility] Comment on above: Performed By: #### P THINT #### [facility] [address] [address] [address] Angus Hernandez Glucose [Mass/Vol] 112 mg/dL Critically high 74-106 [facility] Comment on above: Performed By: #### P THINT #### [facility] [address] [address] [address] Angus Hernandez Potassium [Moles/Vol] 4.1 mmol/L Normal 3.5-5.1 [facility] Comment on above: Performed By: #### P THINT #### [facility] [address] [address] [address] Angus Hernandez Protein [Mass/Vol] 7.3 g/dL Normal 6.4-8.2 [facility] Comment on above: Performed By: #### P THINT #### [facility] [address] [address] [address] Angus Hernandez Sodium [Moles/Vol] 142 mmol/L Normal 136-145 [facility] Comment on above: Performed By: #### P THINT #### [facility] [address] [place] [address] Dr. Angus Hernandez Urea nitrogen [Mass/Vol] 17.0 mg/dL Normal 7.0-18.0 [facility] Comment on above: Performed By: #### P THINT #### [facility] [address] [place] [address] Dr. Angus Hernandez Urea nitrogen/Creatinine [Mass ratio] 14.8 mg/mg Normal [facility] Comment on above: Performed By: #### P THINT #### [facility] [address] [place] [address] Dr. Angus Hernandez TSHon 11-14-2022 TSH 1.092 uIU/mL Normal 0.358-3.740 [facility] Comment on above: Performed By: #### P THINT #### [facility] [address] [place] [address] Dr. Angus Hernandez CORTISOL Tomas 05-28-2022 Cortisol AM 13.1 ug/dL Normal 6.2-19.4 [facility] Comment on above: Performed By: #### H GBHCT #### [facility] [address] [place] [address] Dr. Angus Hernandez CORTISOL PMon 05-28-2022 Cortisol PM 4.1 ug/dL Normal 2.3-11.9 [facility] Comment on above: Performed By: #### H H #### [facility] [id number] Angus Hernandez INSULINon 05-28-2022 Insulin 7.6 uIU/mL Normal 2.6-24.9 [facility] Comment on above: Performed By: #### I NSULIN #### [facility] [address] [address] [address] Angus Hernandez XR CSPINE MIN 4 VIEWSon 05-02 XR CSPINE MIN 4 VIEWS EXAMINATION: XR CSPINE MIN 4 VIEWS HISTORY: Degeneration of cervical [...] FELISA TUCKER Date: 2022-05-27 07:57 Normal [facility] XR TSPINE 3 VIEWSon 05-27-20 22 XR TSPINE 3 VIEWS EXAMINATION: XR TSPINE 3 VIEWS HISTORY: Degeneration of cervical intervertebral [...] by: FELISA TUCKER Date: 2022-05-27 08:[address] [facility] CBC AUTO DIFFon 05-09-2022 BASO # 0.1 103/ul Normal 0.0-0.1 [facility] Comment on above: Performed By: #### C BC #### [facility] [address] [place] [address] Dr. Angus Hernandez Basophils/100 WBC (Bld) 0.7 % Normal 0.2-2.0 [facility] Comment on above: Performed By: #### C BC #### [facility] [address] [place] [address] Dr. Angus Hernandez EO # 0.2 103/ul Normal 0.0-0.7 [facility] Comment on above: Performed By: #### C BC #### [facility] [address] [place] [address] Dr. Angus Hernandez Eosinophils/100 WBC (Bld) 2.4 % Normal 0.9-7.0 [facility] Comment on above: Performed By: #### C BC #### [facility] [address] [place] [address] Dr. Angus Hernandez Erythrocyte distribution width (RBC) [Ratio] 12.8 % Normal 11.0-15.0 [facility] Comment on above: Performed By: #### C BC #### [facility] [address] [place] [address] Dr. Angus Hernandez Hematocrit (Bld) [Volume fraction] 35.9 % Critically low 36.0-48.0 [facility] Comment on above: Performed By: #### C BC #### [facility] [address] [place] [address] Dr. Angus Hernandez Hemoglobin (Bld) [Mass/Vol] 12.0 g/dL Normal 12.0-16.0 [facility] Comment on above: Performed By: #### C BC #### [facility] [address] [place] [address] Dr. Angus Hernandez IG # 0.03 10e3/ul Normal 0.00-0.03 [facility] Comment on above: Performed By: #### C BC #### [facility] [address] [place] [address] Dr. Angus Hernandez IG % 0.4 % Normal 0.0-0.5 [facility] Comment on above: Performed By: #### C BC #### [facility] [address] [place] [address] Dr. Angus Hernandez LYMPH # 2.2 103/ul Normal 1.2-3.8 [facility] Comment on above: Performed By: #### C BC #### [facility] [address] [place] [address] Dr. Angus Hernandez Lymphocytes/100 WBC (Bld) 32.7 % Normal 20.5-60.0 [facility] Comment on above: Performed By: #### C BC #### [facility] [address] [place] [address] Dr. Angus Hernandez MANUAL DIFF REQ NO Normal [facility] Comment on above: Performed By: #### C BC #### [facility] [address] [place] [address] Dr. Angus Hernandez MCH (RBC) [Entitic mass] 30.7 pg Normal 26.7-34.0 [facility] Comment on above: Performed By: #### C BC #### [facility] [address] [place] [address] Dr. Angus Hernandez MCHC (RBC) [Mass/Vol] 33.4 g/dL Normal 29.9-35.2 [facility] Comment on above: Performed By: #### C BC #### [facility] [address] [place] [address] Dr. Angus Hernandez MCV (RBC) [Entitic vol] 91.8 fL Normal 81.0-99.0 [facility] Comment on above: Performed By: #### C BC #### [facility] [address] [place] [address] Dr. Angus Hernandez MONO # 0.5 103/ul Normal 0.3-0.8 [facility] Comment on above: Performed By: #### C BC #### [facility] [address] [place] [address] Dr. Angus Hernandez Monocytes/100 WBC (Bld) 7.1 % Normal 1.7-12.0 [facility] Comment on above: Performed By: #### C BC #### [facility] [address] [address] [address] Angus Hernandez NEUT # 3.8 103/ul Normal 1.4-6.5 [facility] Comment on above: Performed By: #### C BC #### [facility] [address] [address] [address] Angus Hernandez Neutrophils/100 WBC (Bld) 56.7 % Normal 43.0-75.0 [facility] Comment on above: Performed By: #### C BC #### [facility] [address] [address] [address] Angus Hernandez Platelet mean volume (Bld) [Entitic vol] 10.4 fL Normal 9.5-13.5 [facility] Comment on above: Performed By: #### C BC #### [facility] [address] [address] [address] Angus Hernandez PLT 243 103/ul Normal 150-450 [facility] Comment on above: Performed By: #### C BC #### [facility] [address] [address] [address] Angus Hernandez RBC 3.91 106/ul Critically low 4.20-5.40 [facility] Comment on above: Performed By: #### C BC #### [facility] [address] [address] [address] Angus Hernandez WBC 6.7 103/ul Normal 4.0-11.0 [facility] Comment on above: Performed By: #### C BC #### [facility] [address] [address] [address] Angus Hernandez GLYCOHEMOGLOBIN A1Con 2021 ADA RECOMMENDATION SEE BELOW Normal [facility] Comment on above: Result Comment: ADA RECOMMENDED LIMIT 4.0 - 6.0 ADA THERAPEUTIC TARGET < 7.0 ACTION SUGGESTED > 7.0 Performed By: #### H GBHCT #### [facility] [address] [address] [address] Angus Hernandez Glucose [Mass/Vol] 111 mg/dL Normal [facility] Comment on above: Performed By: #### H GBHCT #### [facility] [address] [address] [address] Angus Hernandez HbA1c (Bld) [Mass fraction] 5.5 % Normal 4.5-6.2 [facility] Comment on above: Performed By: #### H GBHCT #### [facility] [address] [address] [address] Angus Hernandez LIPID PROFILEon 05-09-2022 CHOL-HDL RATIO NORM SEE BELOW Normal [facility] Comment on above: Result Comment: 3.3 - 4.4 LOW RISK 4.4 - 7.1 AVERAGE RISK 7.1 - 11.0 MODERATE RISK >11.0 HIGH RISK Performed By: #### L IPID, CMP #### [facility] [address] [place] [address] Dr. Angus Hernandez Cholesterol [Mass/Vol] 188 mg/dL Normal <=200 [facility] Comment on above: Performed By: #### L IPID, CMP #### [facility] [address] [address] [address] Angus Hernandez Cholesterol in HDL [Mass/Vol] 40 mg/dL Normal 40-60 [facility] Comment on above: Performed By: #### L IPID, CMP #### [facility] [address] [place] [address] Dr. Angus Hernandez Cholesterol in LDL [Mass/Vol] 93.4 mg/dL Normal [facility] Comment on above: Performed By: #### L IPID, CMP #### [facility] [address] [address] [address] Angus Hernandez Cholesterol.total/Choles terol in HDL [Mass ratio] 4.7 {ratio} Normal [facility] Comment on above: Performed By: #### L IPID, CMP #### [facility] [address] [address] [address] Angus Hernandez HDL NORMAL > or = 60 mg/dl - LO W CARDIOVASCULAR RISK <40 mg/dl - HIGH CARDIOVASCULAR RISK Normal [facility] Comment on above: Performed By: #### L IPID, CMP #### [facility] [address] [address] [address] Angus Hernandez LDL CALC NORMAL SEE BELOW Normal [facility] Comment on above: Result Comment: <100 mg/dl OPTIMAL 100 - 129 mg/dl NEAR OR ABOVE OPTIMAL 130 - 159 mg/dl BORDERLINE HIGH 160 - 189 mg/dl HIGH >190 mg/dl VERY HIGH Performed By: #### L IPID, CMP #### [facility] [address] [address] [address] Angus Hernandez Triglyceride [Mass/Vol] 273 mg/dL Critically high <=150 [facility] Comment on above: Performed By: #### L IPID, CMP #### [facility] [address] [address] [address] Angus Hernandez VLDL CALC 54.6 mg/dL Normal [facility] Comment on above: Performed By: #### L IPID, CMP #### [facility] [address] [address] [address] Angus Hernandez PROF 14(COMP METB)on 022 Albumin [Mass/Vol] 3.7 g/dL Normal 3.4-5.0 [facility] Comment on above: Performed By: #### L IPID, CMP #### [facility] [address] [place] [address] Dr. Angus Hernandez Albumin/Globulin [Mass ratio] 1.1 {ratio} Normal [facility] Comment on above: Performed By: #### L IPID, CMP #### [facility] [address] [place] [address] Dr. Angus Hernandez ALP [Catalytic activity/Vol] 46 U/L Normal 46-116 [facility] Comment on above: Performed By: #### L IPID, CMP #### [facility] [address] [place] [address] Dr. Angus Hernandez ALT [Catalytic activity/Vol] 26 U/L Normal 14-59 [facility] Comment on above: Performed By: #### L IPID, CMP #### [facility] [address] [place] [address] Dr. Angus Hernandez Anion gap [Moles/Vol] 10.9 mmol/L Normal [facility] Comment on above: Performed By: #### L IPID, CMP #### [facility] [address] [address] [address] Angus Hernandez AST [Catalytic activity/Vol] 15 U/L Normal 15-37 [facility] Comment on above: Performed By: #### L IPID, CMP #### [facility] [address] [address] [address] Angus Hernandez Bilirubin [Mass/Vol] 0.6 mg/dL Normal 0.2-1.0 [facility] Comment on above: Performed By: #### L IPID, CMP #### [facility] [address] [place] [address] Dr. Angus Hernandez Calcium [Mass/Vol] 9.0 mg/dL Normal 8.5-10.1 [facility] Comment on above: Performed By: #### L IPID, CMP #### [facility] [address] [place] [address] Dr. Angus Hernandez Chloride [Moles/Vol] 107 mmol/L Normal 98-107 [facility] Comment on above: Performed By: #### L IPID, CMP #### [facility] [address] [place] [address] Dr. Angus Hernandez CO2 [Moles/Vol] 27.3 mmol/L Normal 21.0-32.0 [facility] Comment on above: Performed By: #### L IPID, CMP #### [facility] [address] [place] [address] Dr. Angus Hernandez Creatinine [Mass/Vol] 1.19 mg/dL Critically high 0.55-1.02 [facility] Comment on above: Performed By: #### L IPID, CMP #### [facility] Laboratory [address] [place] [address] Dr. Angus Hernandez EGFR-AF SUDANESE 57 mL/min/1.73m2 Critically low >=60 [facility] Comment on above: Performed By: #### L IPID, CMP #### [facility] [address] [address] [address] Angus Hernandez EGFR-NON AF SUDANESE 47 mL/min/1.73m2 Critically low >=60 [facility] Comment on above: Performed By: #### L IPID, CMP #### [facility] [address] [address] [address] Angus Hernandez Globulin (S) [Mass/Vol] 3.5 g/dL Normal [facility] Comment on above: Performed By: #### L IPID, CMP #### [facility] [address] [address] [address] Angus Hernandez Glucose [Mass/Vol] 108 mg/dL Critically high 74-106 [facility] Comment on above: Performed By: #### L IPID, CMP #### [facility] [address] [address] [address] Angus Hernandez Potassium [Moles/Vol] 4.2 mmol/L Normal 3.5-5.1 [facility] Comment on above: Performed By: #### L IPID, CMP #### [facility] [address] [address] [address] Angus Hernandez Protein [Mass/Vol] 7.2 g/dL Normal 6.4-8.2 [facility] Comment on above: Performed By: #### L IPID, CMP #### [facility] [address] [address] [address] Angus Hernandez Sodium [Moles/Vol] 141 mmol/L Normal 136-145 [facility] Comment on above: Performed By: #### L IPID, CMP #### [facility] [address] [address] [address] Angus Hernandez Urea nitrogen [Mass/Vol] 16.0 mg/dL Normal 7.0-18.0 [facility] Comment on above: Performed By: #### L IPID, CMP #### [facility] [address] [address] [address] Angus Hernandez Urea nitrogen/Creatinine [Mass ratio] 13.4 mg/mg Normal [facility] Comment on above: Performed By: #### L IPID, CMP #### [facility] [address] [place] [address] Dr. Angus Hernandez PTH INTACTon 02-04-2022 PTH, Intact 22 pg/mL Normal 15-65 [facility] Comment on above: Performed By: #### P THINT #### [facility] [address] [place] [address] Dr. Angus Hernandez HEMOGRAM AND PLATELon 2021 Hematocrit (Bld) [Volume fraction] 39.5 % Normal 36.0-48.0 [facility] Comment on above: Performed By: #### H H #### [facility] [address] [place] [address] Dr. Angus Hernandez Hemoglobin (Bld) [Mass/Vol] 13.3 g/dL Normal 12.0-16.0 [facility] Comment on above: Performed By: #### H H #### [facility] [address] [place] [address] Dr. Angus Hernandez MCH (RBC) [Entitic mass] 30.4 pg Normal 26.7-34.0 [facility] Comment on above: Performed By: #### H H #### [facility] [address] [place] [address] Dr. Angus Hernandez MCHC (RBC) [Mass/Vol] 33.7 g/dL Normal 29.9-35.2 [facility] Comment on above: Performed By: #### H H #### [facility] [address] [place] [address] Dr. Angus Hernandez MCV (RBC) [Entitic vol] 90.2 fL Normal 81.0-99.0 [facility] Comment on above: Performed By: #### H H #### [facility] [address] [place] [address] Dr. Angus Hernandez PLT 256 103/ul Normal 150-450 [facility] Comment on above: Performed By: #### H H #### [facility] [address] [place] [address] Dr. Angus Hernandez RBC 4.38 106/ul Normal 4.20-5.40 [facility] Comment on above: Performed By: #### H H #### [facility] [address] [place] [address] Dr. Angus Hernandez WBC 8.7 103/ul Normal 4.0-11.0 [facility] Comment on above: Performed By: #### H H #### [facility] [address] [place] [address] Dr. Angus Hernandez MAGNESIUMon 02-03-2022 Magnesium [Mass/Vol] 2.0 mg/dL Normal 1.6-2.3 [facility] Comment on above: Performed By: #### H GBHCT #### [facility] [address] [place] [address] Dr. Angus Hernandez RENAL FUNCTION PANELon 02-03 Albumin [Mass/Vol] 3.9 g/dL Normal 3.4-5.0 [facility] Comment on above: Performed By: #### H H #### [facility] [address] [place] [address] Dr. Angus Hernandez Calcium [Mass/Vol] 8.8 mg/dL Normal 8.5-10.1 [facility] Comment on above: Performed By: #### H H #### [facility] [address] [place] [address] Dr. Angus Hernandez Chloride [Moles/Vol] 104 mmol/L Normal 98-107 [facility] Comment on above: Performed By: #### H H #### [facility] [address] [place] [address] Dr. Angus Hernandez CO2 [Moles/Vol] 28.3 mmol/L Normal 22.0-30.0 [facility] Comment on above: Performed By: #### H H #### [facility] [address] [place] [address] Dr. Angus Hernandez Creatinine [Mass/Vol] 1.22 mg/dL Critically high 0.52-1.04 [facility] Comment on above: Performed By: #### H H #### [facility] [address] [place] [address] Dr. Angus Hernandez EGFR-AF SUDANESE 56 mL/min/1.73m2 Critically low >=60 [facility] Comment on above: Performed By: #### H H #### [facility] [address] [address] [address] Angus Hernandez EGFR-NON AF SUDANESE 46 mL/min/1.73m2 Critically low >=60 [facility] Comment on above: Performed By: #### H H #### [facility] [address] [address] [address] Angus Hernandez Glucose [Mass/Vol] 77 mg/dL Normal 74-106 [facility] Comment on above: Performed By: #### H H #### [facility] [address] [address] [address] Angus Hernandez Phosphate [Mass/Vol] 3.9 mg/dL Normal 2.5-4.5 [facility] Comment on above: Performed By: #### H H #### [facility] [address] [address] [address] Angus Hernandez Potassium [Moles/Vol] 4.3 mmol/L Normal 3.4-5.0 [facility] Comment on above: Performed By: #### H H #### [facility] [address] [address] [address] Angus Hernandez Sodium [Moles/Vol] 140 mmol/L Normal 137-145 [facility] Comment on above: Performed By: #### H H #### [facility] [address] [address] [address] Angus Hernandez Urea nitrogen [Mass/Vol] 22.0 mg/dL Critically high 7.0-[address] [facility] Comment on above: Performed By: #### H H #### [facility] [address] [place] [address] Dr. Angus Hernandez UA RANDOM W/MICROSCOPICon BACTERIA NONE SEEN Normal NONE SEEN [facility] Comment on above: Performed By: #### H GBHCT #### [facility] [address] [place] [address] Dr. Angus Hernandez Bilirubin Ql (U) Negative Normal NEGATIVE [facility] Comment on above: Performed By: #### H GBHCT #### [facility] [address] [address] [address] Angus Hernandez CAST NONE SEEN Normal NONE SEEN [facility] Comment on above: Performed By: #### H GBHCT #### [facility] [address] [address] [address] Angus Hernandez Clarity (U) CLEAR Normal CLEAR [facility] Comment on above: Performed By: #### H GBHCT #### [facility] [address] [address] [address] Angus Hernandez Color (U) YELLOW Normal YELLOW [facility] Comment on above: Performed By: #### H GBHCT #### [facility] [address] [place] [address] Dr. Angus Hernandez Crystals LM Nom (Urine sed) NONE SEEN Normal NONE SEEN [facility] Comment on above: Performed By: #### H GBHCT #### [facility] [address] [place] [address] Dr. Angus Hernandez Epithelial cells LM Ql (Urine sed) FEW Abnormal NONE SEEN /RARE [facility] Comment on above: Performed By: #### H GBHCT #### [facility] [address] [place] [address] Dr. Angus Hernandez Glucose Ql (U) Negative Normal NEGATIVE [facility] Comment on above: Performed By: #### H GBHCT #### [facility] [address] [address] [address] Angus Hernandez Hemoglobin Ql (U) Negative Normal NEGATIVE [facility] Comment on above: Performed By: #### H GBHCT #### [facility] [address] [place] [address] Dr. Angus Hernandez Ketones Ql (U) Negative Normal NEGATIVE [facility] Comment on above: Performed By: #### H GBHCT #### [facility] [address] [place] [address] Dr. Angus Hernandez LEUKOCYTES Negative Normal NEGATIVE [facility] Comment on above: Performed By: #### H GBHCT #### [facility] [address] [address] [address] Angus Hernandez MUCOUS NONE SEEN Normal NONE SEEN [facility] Comment on above: Performed By: #### H GBHCT #### [facility] [address] [address] [address] Angus Hernandez Nitrite Ql (U) Negative Normal NEGATIVE [facility] Comment on above: Performed By: #### H GBHCT #### [facility] [address] [place] [address] Dr. Angus Hernandez pH (U) 5.5 [pH] Normal 5-9 [facility] Comment on above: Performed By: #### H GBHCT #### [facility] [address] [place] [address] Dr. Angus Hernandez RBC NONE SEEN Abnormal 0-2 [facility] Comment on above: Performed By: #### H GBHCT #### [facility] [address] [place] [address] Dr. Angus Hernandez SPEC GRAVITY >=1.030 Abnormal 1.005-<=1.[address] [facility] Comment on above: Performed By: #### H GBHCT #### [facility] [address] [place] [address] Dr. Angus Hernandez UA PROTEIN Negative Normal NEGATIVE/ TRACE [facility] Comment on above: Performed By: #### H GBHCT #### [facility] [address] [place] [address] Dr. Angus Hernandez Urobilinogen Qn (U) 0.2 {Tara'U}/dL Normal 0.2 - 1. 0 [facility] Comment on above: Performed By: #### H GBHCT #### [facility] [address] [place] [address] Dr. Angus Hernandez WBC NONE SEEN Normal NONE SEEN [facility] Comment on above: Performed By: #### H GBHCT #### [facility] [address] [place] [address] Dr. Angus Hernandez URIC ACID SERUMon 02-03-2022 Urate [Mass/Vol] 4.5 mg/dL Normal 2.5-6.2 [facility] Comment on above: Performed By: #### H GBHCT #### [facility] [address] [address] [address] Angus Hernandez URINE T PROTEIN CREAT RATIOo n 02-03-2022 Protein (U) [Mass/Vol] 22.9 mg/dL Critically high <=12.0 [facility] Comment on above: Performed By: #### H GBHCT #### [facility] [address] [address] [address] Angus Hernandez UR PROT CREAT RAT 0.11 Normal [facility] Comment on above: Performed By: #### H GBHCT #### [facility] [address] [place] [address] Dr. Angus Hernandez URINE CREAT 217.05 mg/dL Normal 20.00-300.00 [facility] Comment on above: Performed By: #### H GBHCT #### [facility] [address] [place] [address] Dr. Angus Hernandez VITAMIN D 25 OHon 02-03-2022 VIT D 25-OH 112.7 ng/mL Normal [facility] Comment on above: Performed By: #### H GBHCT #### [facility] [address] [place] [address] Dr. Angus Hernandez VIT D RANGES SEE BELOW Normal [facility] Comment on above: Result Comment: <20 ng/mL Vit D deficient 20 - <30 ng/mL Vit D insufficient 30 - 100 ng/mL Vit D sufficient >100 ng/mL Potential Toxicity Performed By: #### H GBHCT #### [facility] [address] [place] [address] Dr. Angus Hernandez Covid-19 PCR ([facility])on 12-31 SARS-CoV-2 (COVID-19) RNA MATTHIEU+probe Ql (Unsp spec) Not detected Normal NOT DETECTED [facility] Comment on above: Result Comment: When diagnostic [...] for this test is supported by the Level Vial Inspector And Tester of Health and Human Service's declaration that [...] used). Performed By: #### C VDTBH #### [facility] [address] [place] [address] Dr. Angus Hernandez CBC AUTO DIFFon 01-15-2022 BASO # 0.1 103/ul Normal 0.0-0.1 [facility] Comment on above: Performed By: #### P THINT #### [facility] [address] [place] [address] Dr. Angus Hernandez Basophils/100 WBC (Bld) 0.6 % Normal 0.2-2.0 [facility] Comment on above: Performed By: #### P THINT #### [facility] [address] [place] [address] Dr. Angus Hernandez EO # 0.0 103/ul Normal 0.0-0.7 [facility] Comment on above: Performed By: #### P THINT #### [facility] [address] [place] [address] Dr. Angus Hernandez Eosinophils/100 WBC (Bld) 0.3 % Critically low 0.9-7.0 [facility] Comment on above: Performed By: #### P THINT #### [facility] [address] [place] [address] Dr. Angus Hernandez Erythrocyte distribution width (RBC) [Ratio] 12.6 % Normal 11.0-15.0 [facility] Comment on above: Performed By: #### P THINT #### [facility] [address] [address] [address] Angus Hernandez Hematocrit (Bld) [Volume fraction] 36.2 % Normal 36.0-48.0 [facility] Comment on above: Performed By: #### P THINT #### [facility] [address] [address] [address] Angus Hernandez Hemoglobin (Bld) [Mass/Vol] 12.2 g/dL Normal 12.0-16.0 [facility] Comment on above: Performed By: #### P THINT #### [facility] [address] [place] [address] Dr. Angus Hernandez IG # 0.03 10e3/ul Normal 0.00-0.03 [facility] Comment on above: Performed By: #### P THINT #### [facility] [address] [place] [address] Dr. Angus Hernandez IG % 0.3 % Normal 0.0-0.5 [facility] Comment on above: Performed By: #### P THINT #### [facility] [address] [place] [address] Dr. Angus Hernandez LYMPH # 3.5 103/ul Normal 1.2-3.8 [facility] Comment on above: Performed By: #### P THINT #### [facility] [address] [place] [address] Dr. Angus Hernandez Lymphocytes/100 WBC (Bld) 39.9 % Normal 20.5-60.0 [facility] Comment on above: Performed By: #### P THINT #### [facility] [address] [place] [address] Dr. Angus Hernandez MANUAL DIFF REQ NO Normal [facility] Comment on above: Performed By: #### P THINT #### [facility] [address] [place] [address] Dr. Angus Hernandez MCH (RBC) [Entitic mass] 30.3 pg Normal 26.7-34.0 [facility] Comment on above: Performed By: #### P THINT #### [facility] [address] [address] [address] Angus Hernandez MCHC (RBC) [Mass/Vol] 33.7 g/dL Normal 29.9-35.2 [facility] Comment on above: Performed By: #### P THINT #### [facility] [address] [place] [address] Dr. Angus Hernandez MCV (RBC) [Entitic vol] 90.0 fL Normal 81.0-99.0 [facility] Comment on above: Performed By: #### P THINT #### [facility] [address] [place] [address] Dr. Angus Hernandez MONO # 0.6 103/ul Normal 0.3-0.8 [facility] Comment on above: Performed By: #### P THINT #### [facility] [address] [place] [address] Dr. Angus Hernandez Monocytes/100 WBC (Bld) 7.1 % Normal 1.7-12.0 [facility] Comment on above: Performed By: #### P THINT #### [facility] [address] [place] [address] Dr. Angus Hernandez NEUT # 4.6 103/ul Normal 1.4-6.5 [facility] Comment on above: Performed By: #### P THINT #### [facility] [address] [place] [address] Dr. Angus Hernandez Neutrophils/100 WBC (Bld) 51.8 % Normal 43.0-75.0 [facility] Comment on above: Performed By: #### P THINT #### [facility] [address] [place] [address] Dr. Angus Hernandez Platelet mean volume (Bld) [Entitic vol] 10.3 fL Normal 9.5-13.5 [facility] Comment on above: Performed By: #### P THINT #### [facility] [address] [place] [address] Dr. Angus Hernandez PLT 266 103/ul Normal 150-450 [facility] Comment on above: Performed By: #### P THINT #### [facility] [address] [address] [address] Angus Hernandez RBC 4.02 106/ul Critically low 4.20-5.40 [facility] Comment on above: Performed By: #### P THINT #### [facility] [address] [address] [address] Angus Hernandez WBC 8.8 103/ul Normal 4.0-11.0 [facility] Comment on above: Performed By: #### P THINT #### [facility] [address] [address] [address] Angus Hernandez PROF CHEM 8 (BAS METB)on Anion gap [Moles/Vol] 12.6 mmol/L Normal [facility] Comment on above: Performed By: #### H H #### [facility] [address] [place] [address] Dr. Angus Hernandez Calcium [Mass/Vol] 8.6 mg/dL Normal 8.4-10.2 [facility] Comment on above: Performed By: #### H H #### [facility] [address] [place] [address] Dr. Anugs Hernandez Chloride [Moles/Vol] 104 mmol/L Normal 98-107 [facility] Comment on above: Performed By: #### H H #### [facility] [address] [place] [address] Dr. Angus Hernandez CO2 [Moles/Vol] 28.6 mmol/L Normal 22.0-30.0 [facility] Comment on above: Performed By: #### H H #### [facility] [address] [place] [address] Dr. Angus Hernandez Creatinine [Mass/Vol] 1.15 mg/dL Critically high 0.52-1.04 [facility] Comment on above: Performed By: #### H H #### [facility] [address] [place] [address] Dr. Angus Hernandez EGFR-AF SUDANESE 60 mL/min/1.73m2 Normal >=60 [facility] Comment on above: Performed By: #### H H #### [facility] [address] [address] [address] Angus Hernandez EGFR-NON AF SUDANESE 49 mL/min/1.73m2 Critically low >=60 [facility] Comment on above: Performed By: #### H H #### [facility] [address] [address] [address] Angus Hernandez Glucose [Mass/Vol] 94 mg/dL Normal 74-106 [facility] Comment on above: Performed By: #### H H #### [facility] [address] [address] [address] Angus Hernandez Potassium [Moles/Vol] 4.2 mmol/L Normal 3.4-5.0 [facility] Comment on above: Performed By: #### H H #### [facility] [address] [address] [address] Angus Hernandez Sodium [Moles/Vol] 141 mmol/L Normal 137-145 [facility] Comment on above: Performed By: #### H H #### [facility] [address] [address] [address] Angus Hernandez Urea nitrogen [Mass/Vol] 22.0 mg/dL Critically high 7.0-[address] [facility] Comment on above: Performed By: #### H H #### [facility] [address] [address] [address] Angus Hernandez Urea nitrogen/Creatinine [Mass ratio] 19.1 mg/mg Normal [facility] Comment on above: Performed By: #### H H #### [facility] [address] [address] [address] Angus Hernandez Coding Summary.on 11-27-2021 Coding Summary. CD:[id number] G h0bWw+PGhlYWQ+IG1ALYL vA54bmGPrsX6LV0mTLN4E IOGGNMZZRJ8GFI5glTR9A EvdC6RjiwIy HxanpSUxEL50LKx5ACH2m DcsMDxorR4aqCHsL8p6Tc ZaAO83jU30FWqyZUOfKjC 3LjZpbjsgbWFy I5dcPbRagRFkNfh+PHRhY mxlIHdpZHRoPScxMDAlJy MbcWmlYH5mWb6jFOJbJCN vbGxhcHNlOiBj d8wgCEIwZUnzHA6rwPhsA 2SigYC6RRExt5u1Di45lJ I+NXHxUGD6nBuqBAwvt91 0TqFdg8gyYKH1 vBEmUTbvSVT5T96ct8U2N TXiZXFmHDP6vCI9bL5urC mdfjbdR5NmlOGnQeS2OFS 3mPFenS2hhDzk pwdifH0aHij+N16AGT6UW AGBEJ4XGbo1F3PzExgooA I+WW45BGYwPQ59oYNkpSA ci2vhyEm0RoRx VBYdXMD1oIjyMArob9CqH ICcM65dkCCap1A3GPNawR tfrLDbPvHjrWK0vY3mNWu tehrox9rwlqee Uqqct8ydbe33jJ24C91dE MaaFOSfTVY2IYWtZLGniE edjt0wtM9mCq3+WBmcb5v mh6xmoJe9CmTd UYRbjwCyxVzzFOH4h1QhO r74Z7WyfIqut1GnSqy9tv 20nEKez6E6mGW7XOkjJXF dbA0rAKstFpL7 ZKUyWvYczN97xRBwHMkeC a8ndIkrlBpmIC5lEHZfyv jjGRMxoC8hFVIfaHNxcNe uYO1xIIWcbivr p284OzVcBHX5KXVcaDByB 8WavA7sHeRtPGJyXVCrZ7 ZegMZuFLvvO330ISzfDgE 0EFDlnzWjY3Dr QBXgfTeqTnU2j0J5Iv7Fi 4NikaycVAH7KOhxFTQwYs W5VhQoDnQ3F7OfBiw5XXY ieLkoYK4lQ4Mq CDGydeevrjxvhWY0WQPpG EOalQ71nFCfXOuzBe2ks9 U0y102ESZhRNJhpT12Nl5 udDogMTBwdCBU kT1qgchck1fyvruzVaEvU SAkGBn1XEt7DWUteDaoMs AoLEZ9QqM9RWF7uHBczS9 tsEsxupnpgR4q Oyc+Z25hrF0tBEH0ZRA5f pziCDWscsPeOI92LU94M9 RyPjwvdGFibGU+PGRpdiB kyAzbUW8kIlCx w4jlg9GuFHlxF0LkGRPzL AcoGoj7LXJwLTL2rOB0zV 6iHKOhMDowg4M1kDE6I8S swaDjhh4hd9cx RIQtBPbrZ72cpBBsc3Q4D MEgwKG2CVVjgZcrTqHebQ 93Oyc+YAZniZtem2PfFdn ic5jbb1vyrJf8 FgLiFKUsgpFtmRcqIPB9d 7SzGg67O17kWObqPFPrYK MvDIAbJNTghWlanx2boK0 wIi8+PGNvbCB3 cWI0fW5yNYLmVwA5HRivO 351TzHccQHjAmqeg6rwk8 jvuMq9WoCtLOYcnoLrvQq zFVD6k7KgBp78 K53lQUajVXKvSSOgRPJnO ZMwqEihtp3xhB0fOm8+PC 4as8wfpe22eX79jNY+PHR gBYJ3bPoaPPmu ZFRngN5vSCglVlH8YXXaN vAwsB00fKBwDCpwTy1kxL lbcMdqIR6bBYPzmygsf44 3NgCyl2opUOWe aSKbDTvrMJR0Z93ab7C0U LDaMWJkLBS6fSU1hW5rhK lnbjogbGVmdDsgdmVydGl rVVngGAzcA910 IHRvcDsnPlBhdGllbnQgT mIqXXm3J8LtEfv0FAJrwZ rcCT3ejGAmVWorFd0qpAp rdDkfUM2iIYSn gnlfc050PpZqb5apYGDqm BTeSRrdOAK7N61yp6V4VG ZuFZWjNTU3tHU4wZ8jsDq nbjogbGVmdDsg hxUfrZnkHZzmZEvlL472V HRvcDsnPkJpcnRoIERhdG T5WB93AH21oJZqj9Z4iNF 3X0TeDNOzskjt bepwzWP1WWDgOLOiuI09V j6lvWnmTm7fQMDeCQA8YT GeyOZqQ0AtzJ7tGaRoLMV oZBSqA2AwtACl GGlyV659YInjObU9QVTgn gYnI9KlRITjjYbhStQ5b0 J9Iq9JQ8I0IB47YA53iHZ kp6Z8fYK8W1Ed OJPqbpbbqdqnyNG7NKMiZ XWwfU85Hp9szMcwCh6tLF KbMGQ3HAXwmMSdX6BhbF6 yOiAjMDAwMDAw Q4AbrTPgWFxcL257ZTsmG iT8CWXdxiVbM3TxWJTlbG ilYyO3r0S5Qw6VBGs1VB4 0PB54mWTbj3Y6 rEO1T4EeQRGmzmoyzuqqc TS1XGQtCEWybB92Hk0qoW fiNt4bLKBzUQZ5YVSudJW gO4OpxB5xQmMq KRGlYWMhE1XsvGNtXIprQ 754OMokOlA5YVYmqhPdZ2 IiEAIaqYimEkR2i5E1Ol9 CAZHcLM89NLU0 lPY3ZM81WY13G8JwQhvra GFibGU+PHRhYmxlIHdpZH RoPScxMDAlJyBzdHlsZT0 rCq4gGOEwCTIu yYsvgSIeRnBxw2lwNJDsW RvqNX8huAbzK4GcbBK8UW Rgp2v9Kd97V42iY7JulKH +BOMsnSM3rKA8 qH9xHuKdHtZ4JXhaG480P uJzaCSfTdmio5ymb9zqmU g9IaD2CXIztdWdnRrjEGL 9f0HgDu79C55s IHdpZHRoPSIxNSUiIHZhb Hoduz3piE3rFk9+PGNvbC W1zYQ2pL7tIwWgFeE9VMj lU193MbLrfQXb Brank7geq5zxuKm6KgXmR HTtqcEjjFdgREF5j5DnVy 41E8TiyQsjj6DrGty4ka3 7jPMam4Y8wXN9 M5JfMXBpiylzqFOquYjsQ Z1pXOTkfmpqEFKunS4xXA AfJ4u8VuWzCbU8IXraQ6Y nolN9KBOmtCUp RRkzWOB8L49gk3X2KGIeF ACwWBJ1lBD9wV6mrRszuc ogbGVmdDsgdmVydGljYWw iTVetU083FRWx iErhPQVnvY3cGGYuxPGwe LwbFE7kAHTpcwxrXbNAHR NEDEOSL0l3L6BjNag7PMK otWflDB7roEDr KLwsEl6dqQrlfVvgYQ9wD IGcczghGELwxZ7tQKOgwX YygXeiFO1bJYSmdirmr21 6RlGkGYA4SUIw sIHfZ4ComM6mYoVhZNVvD HJsD6BmfIEvBImzQ920EG yuPkN5CRHcfkDuL0BiKOJ bxCvuHmE8w3L5 Jj9oIl8pNT0pMBW0YD49K M24aMEhj2V2jRD5O0GpVV IfstwrppyxwDA3AFSuYGI tuN46uMEuBKqs Nm2eu7V0l332WSLlKIMvj I08Nn4ciFlwLYUtrJRRzU 0drrbps0itdexdHnDhTDT mAKg1ODg6VZAj lMymYbYqWBM1LrP9ILO9s MZqqC1lpThcpapxkR1sRl c+FGToMIKntbO2Z7WoUfh 5DCAvfSadQS3p nAYfQFajNz6tnLjpiVukO B1cAUHahtrsJQAmqN7lUG GafHHhgJiaQA5eDMXheai fj379WqByULW6 JOWdaMArI2RmfY6nNjQrY JYmSAZwP1ZknGXvSBsuG8 01SYyuDmD5OKKlazFqL7R sLWFsaWduOiB0 d5B7Eq3OJX7dqHQ2M8VsD mz2SGQefLhiSQ6xlJJqHT npFb2muBypcCwuJZ9wZNO qyorhPVDacW2l CBKmxHEktZuyXR9qGBHso balk289GxPnSYO5DRThgP CyP6DbzK2wNrMzEEYhDHT xU0VfaZVaHAji J812VKplRqE7AKCtptYnL 2LsMCUugBgeNdJ9d7M5Jf 3DWTzfHC2bicTzVZ2oztR 0B5NsDycmvMA+ KR29LAXlHK40pWPsoYIfr 9lizPv3DmXpCZPoQZA1sJ fnKWbos5EmDXNtQ26joIB ku6R1VOQgbOpa jGEfQwYgfYS9gF4xRJvln ncsz3fnlzvnAqjyu1frrk 34qZ49T68dNIajKGSlILQ zMCUiIHZhbGln zt9inQ9kLh2+TCUjsYH5w PG7jI0rEiKvXwD2LBhdV6 68LsIszILvWalam3yic4g ggEd8EzEkAINh huXvpOccQKH6l8FaXk29A 29sIHdpZHRoPSIyMCUiIH BbiVrahf9oyY3mKl9+PC9 bt3jozv61hS73 dHI+ZIDfVOQ4tArzPDpqD JCysZ8iRMsgPiC4BUNhYi RxyN34kHObGCyqSu5mqEo ukLnlRJ7uYWYo wpjmy476YyTpr7nzFLCxp DGkKWpmNAM2R10bq5Z6OZ LrOVRiUVB1jPR7dE5nmHb nbjogbGVmdDsg xhHjmJetJPrgRKurG283M IUrhOznBpRkqJNpY0ugip MNCA3yHayjoTR+PHRkIHN 0eWxlPSdwYWRk yB7oJMLyJ1i4XpWeEsS1N GhyE0NlcjU8CZBxzTScUG NcaMPKuJ3idopkp5xfujn gIzAwMDAwMDt0 NSi4ZUQcdMvaSeMoCMU5Z zG4QDI4qLWzhW1pgMhawq zkyI2iIlf+RklOOjwvdGQ +DLLcYLL5cIfd PKpuWTBtsU0pGNQyD0b5T oYiSzN8ETemM3DbfzR6SF UtrSJhGITsjSNRyA2xnkx ut9olroibSaKe JBTqDLf2QBa0SDPdqXdiW pBtDYG8GoY8TRA5qUIdtD 9zhAuqlncwnX3dLee+TVJ OOjwvdGQ+PHRk ZXQ0gSbeLIyrJYIqvB1sL YZhJ9v5QjQbJuG9GMluG2 MyyqT1IAQreGTkFVKfdAP XxK1ffuryz6gh djprCwPiQRShIVt5WRm4Y TKpzBxwCaCoXZW4NeY3ZJ F7fSWhbG7mzXnwxwzjxQ9 wOyc+WUR1AGE8 BA57IB20T7NgTmtjmRGdw +PHRhYmxlIHdpZHRoPS gvPIOgEkNjyHoyTH3iCm1 yZGVyLWNvbGxh cHNl (more content not included)... Normal [facility] Consent for Treatmenton 09-02 Consent for Treatment [id number]# 1.00CD:127 Normal [facility] Office/Clinic Note-Physician on 09-23-2021 Office/Clinic Note-Physician [id number]#1 .00CD:127 Normal [facility] Patient Correspondenceon Patient Correspondence [id number] 1102 [id number]#1 .00CD:127 Normal [facility] Patient History Officeon Patient History Office [id number]#1 .00CD:127 Normal [facility] Coding Summary.on 09-12-2021 Coding Summary. CD:[id number] G h0bWw+PGhlYWQ+HI8NKBC lO45svFBqjL7AR5zPWO1X SSKIZMWOEO5VND2wnJZ9D FwdJ0KznjDh ZjleyMCeYD32XXk0QGF8v NjfUPhzuN6teUBxO6u0Wl UaHC18gA42XTeoFRBuQxI 3LjZpbjsgbWFy D3eyHjVfuCDnHim+PHRhY mxlIHdpZHRoPScxMDAlJy AmxBxcUD7kLb0nAPXiUIC vbGxhcHNlOiBj j8adQVIbIBacJB2yfUsjS 0McoQE0LBTpv9e5Ac28dM I+FJInCRV1hOgqTJvfc57 7ZlZce9fdQAX6 qESpDAhqDKI8M02sd7U5A MNtVZKiYJF7iSG7dD2fjZ dzdsqjG2ZfaGXcBbV7YWI 2zOYvkZ8wgXbl shwhiE6lMek+B85FWX9RO ETAUK0GMyv7Y3ZjFrxzgY I+NN70SKKzRB57bTRmzHH du3vgxQg8PaXx NHRpYJI9jPwaFPrfc7ZuY NGbA29huHZnt0J4MPOmzA rcxCFkDmFmuDU9nK9zFEe souxct0rkqphl Sxisf7nshr67uI60I82rU IapMKXxWSS2YFPgXVLkeU hszg8acB0dOq5+MFeez6v zg0hypAh7YqDc SSIsffBdnHscMFY5l0WfO o65D1UimMtau7IjLro1ta 09pOIvn1T3eYU4ZYeiKFA qhI1eBObrNpN2 FTEvTsHemP70mSIiNNjbP i9cxThlgLtzYQ8vBYLwzc jeYDWuoE4bODQcvKCkyWk mKG8zPMVcpemd g371PdLqABR3ICWecXIsQ 5TajG1iYeAiVCHkPMPwY7 YioDIuXWxtL304ZSaaFiJ 5JCTrvxHcM7Fu OWEgmZamAsA4p1F2Ao0Ur 0HygezdEGQ8CEawSOCiGd SzKvGoWqQ5N6KmHud2FPP ndUuoYF7cX0Lw ARBqtlpqnqqgeJM4NVYvP VJheM51hDGyREckCk4mf8 P1w069JLYzURIyhQ63Qa8 udDogMTBwdCBU oR6njkqqs4ybfmenHfJaG EPhZFj9KOq9RRWwxTdhCv SsNHL7CsW5UHD6kJMvoR2 ogAxeesixsB6d Oyc+J72oyM6fDKX2TYU4s zacJSCokrQjPS09FU35O9 RyPjwvdGFibGU+PGRpdiB njZqbEL7yGxKx c3ojc0AxJWpuL4VmETEvK MhiJaf3PZBeSYQ6iCX8aV 2bODUoRGycg6E2gPS0G1E zvwQhyt2to5xe OXAwBIhdW00koACet8W4Y BYlwDJ5HNShfZbnNqPbkL 93Oyc+MCJujKcuj9MjFbw ig7ncu7awsWv8 UaAvVHFacdGbtOomXII1e 6EnUq75F80hOQukAZUzVG MeJHWaEYXmcGfsgn8jsF6 wIi8+PGNvbCB3 lNL0yK0mQLMmTyY4ZMhsY 120PwCxuBLnHbsan3fpr8 tvmZg5RjUtCAAeiaWhvUs kUKL4j9VyKb69 I74wYKvoGHYvMWWnJZYrJ KSxaUinvo2ckR2fVk4+PC 6no1swcq22zS41sOK+PHR nDVY5cPopZZsy GHUmwF4tDVqfOdM3LDVgP cRlaI96lWHeCZqvEi5puZ cfeArkGF6qLEAcdltju00 2BtHim1rmAWUh mHRfWFkkVRN9M16nq1Y0H CCuUEFoDMN6mTR5wI7xyW lnbjogbGVmdDsgdmVydGl nXRdwBJcqP219 IHRvcDsnPlBhdGllbnQgT jCjMGj3U4CpNmk3MUYeyC skNE5poWBmZOdcUi1hfCp nkVbeOQ0nZTSh awkbo693WmUrv4crWFNjs SVhYOydVGP5C76rs0O7CW KgOHBkEEJ9uIQ1jG1yiMy nbjogbGVmdDsg ccNucMqyZFotEXqhS101W HRvcDsnPkJpcnRoIERhdG W9XO41HD47oMJuj8P0nSA 4Y6OeHXHnpeyf yravmSS4EUFjFPBniP92D n7iaEjfDz3uLGNvOPP5WD TuoIHeB6VmnJ4fUyWaZFM yPNQsJ0BavVVn PVbiM249BMjqFwZ8XBFvc pZaG1DhAALgtCgkEqT5v0 O9Um8EK4G4IW91NQ03pBH lk4S6qXG4N1Ou MUTfkdfbwfrepCE3DLFtT VOzeT52Pg3diSuwDw4bPG FzGAP2DHFodWIfQ9HxaR0 yOiAjMDAwMDAw P6ZyyTCgEOtiR498HJdrN vY5OGLfcdKqG1MkQLPfoZ vpTkH1d2W5Qu6NMAd1CJ2 6GH90aZSzj8G8 yII7Z4RmLQEjpvwqyonks IQ8JRXeEAQucK60Wj7hdP jeCh2gNOYdMVS0QGSiiIB rZ9WlxG7qSwNs BYXfJSMbO6XjnAFhKTgoW 560VDivCzL2NTIwusMvU2 FxECLcsFeaUcE8x8Y5Qj2 NKHOqIK17IKQ1 eNJ3OD09RB78T4LjCszzw GFibGU+PHRhYmxlIHdpZH RoPScxMDAlJyBzdHlsZT0 nFj4mNFLxLRSk hXprrZDyWiHmy3jhOCIsG AvcEB7dtHltV3BztGV4QM Xtc3h6Oa33P23kX2DbjEV +TAQaiGI5lXK7 iW4iHhZjZlQ2OKjyS147G nZbdSIdDhcid5una2cbbY l3SyM8FAHybsXxnOeyQUD 4y1HdUz72J41q IHdpZHRoPSIxNSUiIHZhb Plbtq5jtP9gOv9+PGNvbC X5tWD2eR6wJcTyVkE0LHx rD609SkYksHFa Kzuao4pfn0uimAs5FoYbK MJndpByuFmjRQN6p8OpAh 93B1BhyCyyn4SvHks7sa1 5wFNld4P0gYE6 A8AvUSBzmqpctFTlpReuS O2bEQOumhfvAAMueR2sIX TkF8x6AoUmIsL7QDaqD2E wnmC4RBGnrZFt XJufTHM6M57qr7R3DLBrS SCaQFH6iCJ4lZ8cdMzjca ogbGVmdDsgdmVydGljYWw zABozG782QPKu pQgyFKKgfD7kPSPxgAAti DngFA1pNJXeppirAuBVOY BCBAWQZ7y9O8JvCba9BZW byLflCX9keISq CCvhHc5dqFcqyNapJG8nS JMyixqmTDEpxQ6eOHZhfZ ZfsWkbKV6nZHXczucbr58 9GzRsJCO7TPBq tTKoJ8OjaC3rSeGyZWEkA JKuC2VomYZmDVeqW084PU abBbU7BVMafqSiC2YnEAQ jdVvhWsE7o1D4 If2lQn2bHE9aNKO3LT07T G69fGHng4M9uXV0I1QtTG OhgdhhycuczFD0JBSjKNV npO79rTAnVKbl Po8qk1K1i291KQRwBMLim Z32Ka6pjZfzTXEksFYCaW 6qnsgvb0beianqWrMjBUE mAUg0UGl7DISj aWyhHvQeFHJ5WbD8WRH9f LVpsU7pxPnbgedhmG5xQa c+VMAgRJWxhhT0X2YsUvo 8LMUfgGewEW6o bUWmNCitOd4wtFjpkPouK A9uQRQdpoctGETijH3vML XawNJavBwbRK8yVFJcdxd qb022XtFeAOC2 BRPpuNKyY3WqxR7qSqJuC SXyMKFpX8RugWMoIEoeE4 72RFbrMaT8EFTmwiLfS6C sLWFsaWduOiB0 k7X5Sq6LOP2biEA3O7HxD tl4PYWldEsnZL9dxNHsIX zlHc5wfBwapKnbCF1pCVC ocqttPNExaJ1b CMZeaONufFfqSE6cEIIep zrce107XbFrKNW2EELxoY BeM2TvuH2uPsQbEEYdMPK qB5OmhGMkMVue E242JXytAlS5PHFqqgJmQ 4YwVANdvTuzSqF3p3G5Lh 5IWZxiGJ8ejoKhBB8mmyI 7C2QoQelydDU+ FY79IIUrSY25hMDnjNInp 5aklNk2EyIeBAZaAVO4kL jiBZvoy3QeEAGyR41yxNC kf2K9IOVqzIyo vEOfDqAvgPJ7bA5bIFpmj vxox4isinkjQlyth8dqnq 71nX80O21bGWqbRLSnKFM zMCUiIHZhbGln bc8xvX2bPv3+XEXjqVH8e LX6yL1eSuItEcA2FDiiN1 77BbLesAWgPqkyb7xay2n njYg0AxQnPPUd bgPblJuaFMX9b7QcFd22M 29sIHdpZHRoPSIyMCUiIH OgbDnxmj0ezZ5zAf4+PC9 mu8hrts26uG32 dHI+OERlZJC9iPzlXBusM HVxtT1kSMroNaO1JNRnDo EkuA51iZFoLQdqVw6asFy geEkpYW9lUOFt mqqlq009HdHue1koNVYxd MEjDFgmERR3D88qb2A1PB KdOWHtCFC3wPG7pF1htWv nbjogbGVmdDsg kdWkbOldSQpxKPueG923O EDpcRtdXsZqbMPcZ3ntnc YDFP3jKjlizDJ+PHRkIHN 0eWxlPSdwYWRk mY5xNBIyA5v9HwChWuF6V NmuX0AmdjU6HUCaoURoAZ KufLQTwT4zowief9tnfwx gIzAwMDAwMDt0 JBp4EQCymPazQsIvYKE2Q zT6YTA9tBAbeJ3ldNchwt wrxO5oGqz+RklOOjwvdGQ +RSFxRLC8bYgu LUjfVQRwkI8mFPYiC4k2Q vRhYkO0JVeiW2FlujW0BZ GtkLXrTAZfvRHHmW6inoq hn3wwlqcbNsBx OYHxOEm2CAt7PWCfsMbrO vUfEES7RxT5PMP3uRDxaW 5gtHfngzsnxF5dDgi+TVJ OOjwvdGQ+PHRk PEM3rYlsRLoaFNBlhT9aA GYeI0a2NeYwLvK3QXegE2 CongT4SDPecTDrNTEauQJ MlP1dshzwt3gp lbecJsEjRULlPUg1WKc4C UBceZnaQvZdJEG8CtN2PD T6iAHwgH0nfWaafnqjqE8 wOyc+PEI7CDI4 TP98IS85L4ZvGkzwjMCbd +PHRhYmxlIHdpZHRoPS hwWCOgJmSyeCzsPU0oNl4 yZGVyLWNvbGxh cHNl (more content not included)... Normal [facility] Coding Summary.on 09-03-2021 Coding Summary. CD:[id number] G h0bWw+PGhlYWQ+PU9RIHX iD11jsMYetT7YJ9bLLH5Q EMGTPIMLEX0FMC2biYR2I WisU0PbpyKg ZdkgmTLeUE28PUa6VAV9a ZlpLCaxnQ0emRQfN0z0Ep ZaTU17aM46JOuaKFEaFyA 3LjZpbjsgbWFy S9acMcPgwMEaCjj+PHRhY mxlIHdpZHRoPScxMDAlJy OxeRvhOZ5vSu4uERIwGZL vbGxhcHNlOiBj a3zsDDGoSMamDT4haDduB 1CumVQ9MKHgt0c0Jm11zT I+OTPsQPW9zIwfUNfqo75 6PcQqb9lgMFS3 vSVsOApkNMV2E10mu7F4G XOmOOXzPTZ9lTO0uT0eqJ zrlcfcV9LdiEBkWbW6UPE 5aHEcaP4brNpj fooxkZ7aGzq+E13VNK9QY XEZNF5AOgx7Y2UfKowqdF I+ON79XZCoJN41kVDkmUU iu8rloFn0RhXg DWJeFEV8lFvhOOiyq4ZdW YYtH48sjAEgr4L3CSSplJ dpySEjIsPhgAS3hW1sMTa gkkbaq4azzlmz Ezlpw4oiqk89aK39O19lA XfdCXPcABN2VZLoARCmsM govi8weJ0eEf0+TYcue2n td6pcqFa8KfLo OBBtyyIpuDlsHVD6d4FgP i06E1TajPayf6MvZem8zy 53cYJvb9R2lHE0EHdkRLR zzU0eNAfxZxE7 BVEkNrEmuG96cEHxKXjmB l3ypNbypFdrNP0jMRLvdl ngVIQliQ5qVTZnoLQvlEi cJU2qYMPtsmxt l772RbPpNLS2OEWjtJQeW 5AryU4lLaBlGSCwMRYnB9 XpgDThDExpW326SDoxYuX 0CGGhudRiY3Xp GKOfrCcxRbA5s7D7Ar5Lx 1DwglkqUSZ8HJigRVNvLy VhGzXpKfU7V8NbRjs2LHH wdXgyEH1tK5Ty RMAjsdwjvukwnTJ6ZCDaW IKnnQ54iGHpDGdeJr5nd7 M2i365EJJyUNWstE63Dw7 udDogMTBwdCBU hQ8sfvzju7ioadvgLzFcI RNiZQt7IEm9XFKcbOvfRd HqRWA2KtO3AUB6fWOdjT7 noNxrwbtbcT6q Oyc+E71nqI2qFJO8ONF4y dscDJYpsdKpXU72FA99S6 RyPjwvdGFibGU+PGRpdiB eeMsaLD9hKjSt u7sgt5RoZVeqQ7UaVXRsI BmhOzt0UAGkRTR7xNE8zD 6bVLVoUNxqa1L1pON4H6H belFcof7ym3sr NZEsYOedF07zoBNpc1N6P PVtnMZ5OLHcsTsxBeVkyI 93Oyc+WGDvxUiht9OnTtn cc2nur8afrBc3 VbRhIAPjjaPwcAnrTFO0k 2MlRv49K52tIClxUEXgRC GtAKHrSVUiwBxxbd3voY9 wIi8+PGNvbCB3 dHU0bZ8dVJOjKgC1NUpuV 724KtStmYGiJlmxu5ynh9 pigRi9UdDoNCWlxdMfdMu tSKC2q7KuYs53 X75aYTovATHiWDQkMWVlM KYzyNiego1iiT3uKo4+PC 1lx5ibnz08mS42pGH+PHR dPQU0bIbpVKsb ZQUwtM0dPUqlHlB6TUKwZ bPnvU20sDDpHAfdHv9jdL zmeWqrOC4gUDNzcqyka85 1KuMmy5tiMKRf mAMrPUjeXTF5U98xj2T9B TIpXZYrIJQ2kXY9iE6eiI lnbjogbGVmdDsgdmVydGl sAYdsLCxzE679 IHRvcDsnPlBhdGllbnQgT zNiDRo7D1RfPod6MPDhwY vvKD5yxHDlGCkgDo2nfXm rsEksCO0tHNJt xaxjx876QvMhv2brHILde LWjMXwtXOD5J78do3M4GK TuRHUyCWA4wDX1rN9yoDh nbjogbGVmdDsg rlIreYrgVHjsNXwuS395O HRvcDsnPkJpcnRoIERhdG E4MF45VK32yJIxj4Q1pOM 0H7YmMHGsjhoo wjiidLV3LADjUERrhO37O w9teDqdGz8kYMNhBUM3DO XqtGJdI9QzgA8sDkIiSKJ iMZFgQ9XkbMHz AXszR731SMwzCzH2FRHdk iKoJ1MsXJClpUfjFjP1f3 K5Kd1VK2U1NL15BK53yGX td2N1nMD7M6Oy QKXodxtgsgtxhIP0AEKdT SHkcK96Ir5weRlhTx1wXH SsXFM8QORetOFfF1ErsF9 yOiAjMDAwMDAw H5OhgOTzMZdaU938GJepW oJ3FKBpuzYnA3XeCMXtlK ntKlA5w3S6Wp4BDTv0EE7 8DF56mJVun8M0 bNB5B3BlYZHbujtnkcuxt VW2CXWzNSThdA09Rt4yjE wkHv1qWBJoSPK4NBGxaTS dO2HbiR5oHcLw CALcGHDkC2JipZJbIEywU 642JQrqAtP5UANyoiYjM5 ZfQEZlxNpqDnS5i3G3Rh5 IOTVlLI86FBN7 kWI6EX44KO16X1HcXzkyj GFibGU+PHRhYmxlIHdpZH RoPScxMDAlJyBzdHlsZT0 qMi9tFWEeAMUk pCajzAAxBsQjv7lhJZIsW RxqIF4joYxmL4XdzYW1TR Ofz3x7Kr52M59bT9MvvRA +ZBEdmSO0wEW7 nJ8aHtIgVfH7FXptM573O qMzwFGsYzocv5sae3qdiN z2OgB0AVWqxsRlhIqqBKM 7v8BqNe46S11p IHdpZHRoPSIxNSUiIHZhb Etiyv6ehN9aTg1+PGNvbC J0vGK1aW8mKfGeLmM0SCt bG334QeLdzXAh Jxwlb0cig0dcgZr1EpTpL IQipmJayIbwXMI2g6ScQo 36Y3LtrNlty2RiXzb5yq6 5xBCtx2S0dGD2 T5AvNTHwngrczXDgyZrfO Q9fDWScgznxYAEsoE4nDY NcB9m5MsFqHiY8NZjgR6B rjjG5JWTsbPQa EEcfWDV5H66tq7F2PKKzZ XWrCEE7dVV5tQ4azSwhjf ogbGVmdDsgdmVydGljYWw xMMbzW399ITZp bVciGICfvP7nLPDxjNOrx RukNY9zNARyngefXxQOTO AWEPWAW3p7F5YoWri6IMA lbNvkPF3lbKGs CLgmYt3qrQvwdNwyNQ8oQ XFappjkMKNexS3sKJHngG AgdKvvTE8cZOFxgmltx81 2FrHmQQW3PXIn dOPvW7BchF8kFjMvDELkN AAtK7DquGCqWOiyV499GD xuLtB4REPatiRtE3YdHNN gbOzxTnB9n5O3 Up0wOk2wNU1xJVS8KO93C T33cKBge4I4wFH6L4EaYW GizlalbijwwXF3OIAgUNM urD98zRTjDIet Gc3ti3I4z480ETQpOZNkd Z14Cm0whDkiNEQsyGLDiC 5jemzjw0mkgnmgRuXrOGY bUYj5XXq9VRGp kOxdLzFcJMV9MnQ8OIE7c NKjnR6dwUgsjgizrP5rPk c+JMXaETTzmmU2X2PtJwk 3OMOayCdoRZ9r wREqKUrvTs5olGwolTarT G9eDPBjsyzlXDEnmJ4uZU HfsTWifZghGL8lOZUpwvc ek137DiEmTHR4 GWDpvBAfG9SukN0kAfKlJ QRzBIDyR9TruHWkNYrzD7 04QBpeZzW4VRQrcxNfH5N sLWFsaWduOiB0 q4X8Sb8GZD2fnIG8D2YsJ jv0TTOsnUtkAK8dlCUeSI yyPx5duNxybXuvUY6yNZW gefecFACpkS4x LTWnkGOblNdjMG9aNXGes euoz579BlYbHUD2XBPjqB ZpV8YpeF0xFxRqVSEvUWV uS1ThsANxUYys O590CZcvSmS9YGRmobUhW 4CfAHWeiKqzApH4c2S1Hn 2QSLtvHS6hofGtTI3mzlE 9H3UnUbsasVA+ TC08KIKzEX03xMNwaCHvr 3wuyMr7MlDpOJAwCFN2nN vdDIbwb1TkQYIgJ74zeRG tf6J7ASQhoPeo gOVpBfUnrDJ0oV4yCQwwf cjxf4scqcvkCbtdv6rlro 79wH86H39gSNxaDGWgUGP zMCUiIHZhbGln xq2ieG6vKs2+GPJtvFH0m VX9eK2iGeQmRdA7EAwoP0 71RwWggOWsSihwb2jtp4w oaMg6DrYlBQPv afHcpNuuDFG6a7VsVk07C 29sIHdpZHRoPSIyMCUiIH HbjLibmv0dkU8yNz0+PC9 yw8giby89tL49 dHI+ZUScMNE1yJbwKDdoV ZTrvZ5uXMqoOnX5DPMiYp NepR06wCEdJEvoPw1euQl hwWvfOD6qXSDw kzbeg178YdNwi0wxOKXyp VSwXShpRFF7D06px0M3EQ EnGVSkQOG6hSK5uD8ggKb nbjogbGVmdDsg tfAtkYjmRIxtDQtkP816B HKkjZbxHiGteQFxX9snfa FJJN1vEuexwLV+PHRkIHN 0eWxlPSdwYWRk kG3qHZFsT1j8GvRuKlY0C EezV2DmjrJ0OTDvgCHjGK PcmCADjU4hmhfpu5dxuby gIzAwMDAwMDt0 JSx2JWYrvNonUhFyHDP7Q oZ0EVK4bLFefI9bvUksxc spyB0yVgs+RklOOjwvdGQ +AZBkUZU6nPtl ALjkGUHlbP1cDNQeK1k8D fKsLbA4DGxpN6JetvZ6TV PqlZKqRCEcpHCDbE1sbxw ml3zgiqueFtIe QOYbNRj7IPe0SQOktDwxN xXlBIQ5AdW8CKE5hWGtcQ 9zsMvgyxdteG5tMse+TVJ OOjwvdGQ+PHRk VYN0pKsnDOpbUVFdcG1aH GTzR7o9AbLwCmB1NEbxV4 OeoiU6PKWruNQuJCCbaCA YcE7sfkmlh3bx znuyFrKxUJEiFZq0UPy6J MOxrCjoKpIlPTS7NsE1CF V2sJAztE8gyIothlcrnT4 wOyc+TDU4GQZ3 TY59KM30X4FtBnmfdCFsq +PHRhYmxlIHdpZHRoPS wiHYSyHrLruBhbLL1xOp0 yZGVyLWNvbGxh cHNl (more content not included)... Normal [facility] Consent for Procedure/Surger yon 09-02-2021 Consent for Procedure/Surgery [id number] .00CD:127 Normal [facility] Consent for Treatmenton Consent for Treatment [id number] 110 [id number]# 1.00CD:127 Normal [facility] Discharge Instructionson Discharge Instructions [id number]#1 .00CD:127 Normal [facility] IntraOperative Documentson 1 11-02-2020 IntraOperative Documents [id number] .00CD:127 [facility] Main OR Intraoperative Recor don 09-02-2021 Main OR Intraoperative Record IntraOp Document Type FTPM Summary Primary Physician: Cole Hidalgo MD Finalized Date/Time: 09/02/21 09:26:26 Pt. Name: MYRTLE JONES/Sex: 1965 Female Med Rec #: [id number] Physician: Cole Hidalgo MD Financial #: [id number] Pt. Type: P Room/Bed: / Admit/Disch: 09/02/21 [...] LANTIGUA RRalph Role Performed Surgeon - Primary Repairer Evaporator - Primary Winder Contort Operator Time In 09/02/21 09:21:00 09/02/21 09:21:00 09/02/21 09:21:00 Time Out 09/02/21 09:26:00 09/02/21 09:26:00 09/02/21 09:26:00 Procedure LUMBAR EPIDURAL STEROID LUMBAR EPIDURAL STEROID LUMBAR EPIDURAL STEROID INJECTION(.) INJECTION(.) INJECTION(.) Comments Last Modified By: Sylvia LIZ, Emerald Ward RN, Emerald Shaw RN 09/02/21 09:26:12 09/02/21 [...] Emerald Ward RN, Given Participants Luc LIZ, Cole Armstrong, Gwen CANNON, Cole Anaya, Glenn LIZ, Grant Sánchez RT. R, Ralph De Oliveira Time Out Complete [...] and tissue Entry 1 Skin Integrity Intact, [place], Warm, and Skin Abnormality No Dry Outcomes [...] Large, Safe (more content not included)... Normal [facility] Main OR Preoperative Recordo n 09-02-2021 Main OR Preoperative Record Holding Area Document Type FTPM Summary Primary Physician: Cole Hidalgo MD Finalized Date/Time: 09/02/21 08:30:21 Pt. Name: MYRTLE JONES/Sex: 1965 Female Med Rec #: [id number] Physician: Cole Hidalgo MD Financial #: [id number] Pt. Type: P Room/Bed: / Admit/Disch: 09/02/21 [...] Comment: Complaints of Pain: Yes Pain Comment: 510 lower back Operative Site Yes Marked By: [...] By: Eve Torres RN 09/02/21 08:30 Normal [facility] Operative Reporton Operative Report Patient: MYRTLE JONES [...] Monitered 110 mmHg SpO2 100 % . [facility] Comment on above: Result Comment: Elec tronically Signed By: Gwen CANNON, Cole Anaya\.br\Date and Time Signed: 09/02/21 09:26 EDT Patient Correspondenceon Patient Correspondence [id number] 1100 [id number]# 1.00CD:127 [facility] Insurance Correspondence Off iceon 08-22-2021 Insurance Correspondence Office [id number]#1. 00CD:127 [facility] Consent for Treatmenton 08-01 Consent for Treatment [id number]#1 .00CD:127 [facility] HIPAA Forms Officeon 021 HIPAA Forms Office [id number]# 1.00CD:127 [facility] Legal Correspondence Officeo n 08-18-2021 Legal Correspondence Office [id number]# 1.00CD:127 [facility] Legal Correspondence Office [id number]# 1.00CD:127 [facility] Office/Clinic Note-Physician on 08-18-2021 Office/Clinic Note-Physician [id number]# 1.00CD:127 Normal [facility] Patient Correspondenceon Patient Correspondence [id number]# 1.00CD:127 Normal [facility] Patient Correspondence [id number]# 1.00CD:127 Normal [facility] Patient Correspondence [id number]# 1.00CD:127 Normal [facility] Patient Correspondence [id number] 1100 [id number]# 1.00CD:127 Normal [facility] Patient Correspondence [id number] 1100 [id number]# 1.00CD:127 Normal [facility] Patient History Officeon Patient History Office [id number] 1100 [id number]# 1.00CD:127 Normal [facility] Radiology Outside Office Charge Loader yon 08-11-2021 Radiology Outside Office Copy [id number]#1 .00CD:127 Normal [facility] Radiology Outside Office Copy [id number]#1 .00CD:127 Normal [facility] Outside Records Officeon Outside Records Office [id number] 1100 [id number]# 1.00CD:127 Normal [facility] Referrals Officeon Referrals Office [id number]# 1.00CD:127 Normal [facility] Vital Signs Date Time Vital Sign Value Performing Clinician Facility 05-14-2025 09:05-0400 Body height 170.18 cm Anand Garcia DO Work Phone: [facility] 05-14-2025 09:05-0400 Body mass index (BMI) [Ratio] 23.8 kg/m2 Anand Garcia DO Work Phone: [facility] 05-14-2025 09:05-040 Body weight 69 kg Anand Garcia DO Work Phone: [facility] 04-04-2025 15:53-0400 Body height 170.2 cm Simona Carlson HOUSEKEEPING ASSISTANT.PIG CONVEYOR OPERATOR Work Phone: [facility] 04-04-2025 15:53-0400 Body mass index (BMI) [Ratio] 23.49 kg/m2 Simona Carlson HOUSEKEEPING ASSISTANT.PIG CONVEYOR OPERATOR Work Phone: [facility] 04-04-2025 15:53-0400 Body weight 68.04 kg Simona Carlson HOUSEKEEPING ASSISTANT.PIG CONVEYOR OPERATOR Work Phone: [facility] 04-04-2025 15:53-0400 Diastolic blood pressure 82 mm[Hg] Simona Carlson HOUSEKEEPING ASSISTANT.PIG CONVEYOR OPERATOR Work Phone: [facility] 04-04-2025 15:53-0400 Systolic blood pressure 148 mm[Hg] Simona Carlson HOUSEKEEPING ASSISTANT.PIG CONVEYOR OPERATOR Work Phone: [facility] 03-20-2025 14:41-0400 Body temperature 97.7 [degF] Anand Garcia DO Work Phone: [facility] 03-20-2025 14:41-0400 Body weight 69.08 kg Anand Garcia DO Work Phone: [facility] 03-20-2025 14:41-0400 Diastolic blood pressure 84 mm[Hg] Anand Garcia DO Work Phone: [facility] 03-20-2025 14:41-0400 SaO2% (BldA) [Mass fraction] 98 % Anand Garcia DO Work Phone: [facility] 03-20-2025 14:41-0400 Systolic blood pressure 118 mm[Hg] Anand Garcia DO Work Phone: [facility] 01-10-2025 14:30-0400 Diastolic blood pressure 77 mm[Hg] Anand Garcia DO Work Phone: [facility] 01-10-2025 14:30-0400 Heart rate 68 /min Anand Garcia DO Work Phone: [facility] 01-10-2025 14:30-0400 Respiratory rate 20 /min Anand Garcia DO Work Phone: [facility] 01-10-2025 14:30-0400 SaO2% (BldA) [Mass fraction] 99 % Anand Garcia DO Work Phone: [facility] 01-10-2025 14:30-0400 Systolic blood pressure 117 mm[Hg] Anand Garcia DO Work Phone: [facility] 01-10-2025 12:35-0400 Body temperature 97.7 [degF] Anand Garcia DO Work Phone: [facility] 01-10-2025 12:05-0400 Inhaled oxygen flow rate 8 L/min Anand Garcia DO Work Phone: [facility] 01-10-2025 09:33-0400 Body height 170.18 cm Anand Garcia DO Work Phone: [facility] 01-10-2025 09:33-0400 Body weight 68.03 kg Anand Garcia DO Work Phone: [facility] 12-18-2024 15:12-0500 Body height 170.18 cm Anand Garcia DO Work Phone: [facility] 12-18-2024 15:12-0500 Body mass index (BMI) [Ratio] 23.7 kg/m2 Anand Garcia DO Work Phone: [facility] 12-18-2024 15:12-0500 Body weight 68.8 kg Anand Garcia DO Work Phone: [facility] 11-16-2024 15:34-0500 Body height 170.18 cm Anand Girvin DO Work Phone: [facility] 11-16-2024 15:34-0500 Body mass index (BMI) [Ratio] 23.7 kg/m2 Anand Garcia DO Work Phone: [facility] 11-16-2024 15:34-0500 Body temperature 96.4 [degF] Anand Garcia DO Work Phone: [facility] 11-16-2024 15:34-0500 Body weight 68.8 kg Anand Garcia DO Work Phone: [facility] 11-16-2024 15:34-0500 Diastolic blood pressure 86 mm[Hg] Anand Garcia DO Work Phone: [facility] 11-16-2024 15:34-0500 Heart rate 72 /min Anand Garcia DO Work Phone: [facility] 11-16-2024 15:34-0500 Respiratory rate 16 /min Anand Garcia DO Work Phone: [facility] 11-16-2024 15:34-0500 SaO2% (BldA) [Mass fraction] 98 % Anand Garcia DO Work Phone: [facility] 11-16-2024 15:34-0500 Systolic blood pressure 116 mm[Hg] Anand Garcia DO Work Phone: [facility] 10-19-2024 08:33-0500 Body height 170.18 cm Anand Garcia DO Work Phone: [facility] 10-19-2024 08:33-0500 Body mass index (BMI) [Ratio] 23.9 kg/m2 Anand Garcia DO Work Phone: [facility] 10-19-2024 08:33-0500 Body weight 69.39 kg Anand Garcia DO Work Phone: [facility] 10-04-2024 16:00-0500 Body height 170.2 cm Simona Carlson APRN.PIG CONVEYOR OPERATOR Work Phone: [facility] 10-04-2024 16:00-0500 Body mass index (BMI) [Ratio] 24.17 kg/m2 Simonasim Carlson HOUSEKEEPING ASSISTANT.PIG CONVEYOR OPERATOR Work Phone: [facility] 10-04-2024 16:00-0500 Body weight 70 kg Simonabethel Carlson HOUSEKEEPING ASSISTANT.PIG CONVEYOR OPERATOR Work Phone: [facility] 10-04-2024 16:00-0500 Diastolic blood pressure 72 mm[Hg] Simonasim Carlson HOUSEKEEPING ASSISTANT.PIG CONVEYOR OPERATOR Work Phone: [facility] 10-04-2024 16:00-0500 Heart rate 74 /min Simonasim Carlson HOUSEKEEPING ASSISTANT.PIG CONVEYOR OPERATOR Work Phone: [facility] 10-04-2024 16:00-0500 Systolic blood pressure 130 mm[Hg] Simonabethel Carlson HOUSEKEEPING ASSISTANT.PIG CONVEYOR OPERATOR Work Phone: [facility] 09-20-2024 14:52-0500 Body mass index (BMI) [Ratio] 24.3 kg/m2 Anand Garcia DO Work Phone: [facility] 09-20-2024 14:52-0500 Body temperature 97.1 [degF] Anand Garcia DO Work Phone: [facility] 09-20-2024 14:52-0500 Diastolic blood pressure 88 mm[Hg] Anand Garcia DO Work Phone: [facility] 09-20-2024 14:52-0500 Heart rate 66 /min Anand Garcia DO Work Phone: [facility] 09-20-2024 14:52-0500 SaO2% (BldA) [Mass fraction] 98 % Anand Garcia DO Work Phone: [facility] 09-20-2024 14:52-0500 Systolic blood pressure 136 mm[Hg] Anand Garcia DO Work Phone: [facility] 09-20-2024 14:37-0500 Body height 170.18 cm Aannd Garcia DO Work Phone: [facility] 09-20-2024 14:37-0500 Body weight 70.3 kg Anand Garcia DO Work Phone: [facility] 06-21-2024 14:45-0400 Body height 170.18 cm DO Anand Garcia Work Phone: [facility] 06-21-2024 14:45-0400 Body mass index (BMI) [Ratio] 24.3 kg/m2 DO Anand Garcia Work Phone: [facility] 06-21-2024 14:45-0400 Body temperature 97.3 [degF] DO Anand Garcia Work Phone: [facility] 06-21-2024 14:45-0400 Body weight 70.3 kg DO Anand Garcia Work Phone: [facility] 06-21-2024 14:45-0400 Diastolic blood pressure 78 mm[Hg] DO Anand Garcia Work Phone: [facility] 06-21-2024 14:45-0400 Heart rate 57 /min DO Anand Garcia Work Phone: [facility] 06-21-2024 14:45-0400 Respiratory rate 18 /min DO Anand Garcia Work Phone: [facility] 06-21-2024 14:45-0400 SaO2% (BldA) [Mass fraction] 98 % DO Anand Garcia Work Phone: [facility] 06-21-2024 14:45-0400 Systolic blood pressure 122 mm[Hg] DO Anand Garcia Work Phone: [facility] 03-29-2024 16:01-0400 Body height 170.2 cm Simona Carlson APRN.CNP Work Phone: [facility] 03-29-2024 16:01-0400 Body mass index (BMI) [Ratio] 25.41 kg/m2 Simona Carlson HOUSEKEEPING ASSISTANT.PIG CONVEYOR OPERATOR Work Phone: [facility] 03-29-2024 16:01-0400 Body weight 73.6 kg Simona Carlson HOUSEKEEPING ASSISTANT.PIG CONVEYOR OPERATOR Work Phone: [facility] 03-29-2024 16:01-0400 Diastolic blood pressure 68 mm[Hg] Simona Carlson HOUSEKEEPING ASSISTANT.PIG CONVEYOR OPERATOR Work Phone: [facility] 03-29-2024 16:01-0400 Heart rate 67 /min Simona Carlson HOUSEKEEPING ASSISTANT.PIG CONVEYOR OPERATOR Work Phone: [facility] 03-29-2024 16:01-0400 Systolic blood pressure 142 mm[Hg] Simona Carlson HOUSEKEEPING ASSISTANT.PIG CONVEYOR OPERATOR Work Phone: [facility] 09-13-2023 14:40-0500 Body height 170.18 cm Anand Garcia Other [employer] Other 09-13-2023 14:40-0500 Body mass index (BMI) [Ratio] 28.97 kg/m2 Anand Garcia Other [employer] Other 09-13-2023 14:40-0500 Body temperature 98.1 [degF] Anand Garcia Other [employer] Other 09-13-2023 14:40-0500 Body weight 83.92 kg Anand Garcia Other [employer] Other 09-13-2023 14:40-0500 Diastolic blood pressure 86 mm[Hg] Anand Garcia Other [employer] Other 09-13-2023 14:40-0500 Respiratory rate 18 /min Anand Garcia Other [employer] Other 09-13-2023 14:40-0500 SaO2% (BldA) [Mass fraction] 97 % Anand Radha Other [employer] Other 09-13-2023 14:40-0500 Systolic blood pressure 126 mm[Hg] Anand Garcia Other [employer] Other 06-09-2023 14:40-0400 Body height 170.18 cm Anand Josesitoromelia Other [employer] Other 06-09-2023 14:40-0400 Body mass index (BMI) [Ratio] 28.5 kg/m2 Anand Josesitoromelia Other [facility] Other 06-09-2023 14:40-0400 Body temperature 98.3 [degF] Anand Josesitoromelia Other [employer] Other 06-09-2023 14:40-0400 Body weight 82.56 kg Anand Garcia Other [employer] Other 06-09-2023 14:40-0400 Diastolic blood pressure 86 mm[Hg] Anand Garcia Other [employer] Other 06-09-2023 14:40-0400 Respiratory rate 18 /min Anand Garcia Other [employer] Other 06-09-2023 14:40-0400 SaO2% (BldA) [Mass fraction] 98 % Anand Radha Other [employer] Other 06-09-2023 14:40-0400 Systolic blood pressure 138 mm[Hg] Anand Josesitoromelia Other [employer] Other 01-14-2023 15:00-0400 Body height 170.18 cm Marianne Plummer Other [employer] Other 01-14-2023 15:00-0400 Body mass index (BMI) [Ratio] 27.58 kg/m2 Marianne Yemi Other [facility] Other 01-14-2023 15:00-0400 Body temperature 97.3 [degF] Marianne Yemi Other [facility] Other 01-14-2023 15:00-0400 Body weight 79.88 kg Marianne Yemi Other [facility] Other 01-14-2023 15:00-0400 Diastolic blood pressure 82 mm[Hg] Marianne Yemi Other [employer] Other 01-14-2023 15:00-0400 Respiratory rate 18 /min Marianne Yemi Other [facility] Other 01-14-2023 15:00-0400 SaO2% (BldA) [Mass fraction] 100 % Marianne Yemi Other [facility] Other 01-14-2023 15:00-0400 Systolic blood pressure 130 mm[Hg] Marianne Yemi Other [employer] Other 11-30-2022 15:40-0500 Body height 170.18 cm Anand Garcia Other [employer] Other 11-30-2022 15:40-0500 Body mass index (BMI) [Ratio] 27.17 kg/m2 Anand Garcia Other [employer] Other 11-30-2022 15:40-0500 Body temperature 97 [degF] Anand Radha Other [employer] Other 11-30-2022 15:40-0500 Body weight 78.7 kg Anand Garcia Other [employer] Other 11-30-2022 15:40-0500 Diastolic blood pressure 86 mm[Hg] Anand Radha Other [employer] Other 11-30-2022 15:40-0500 Respiratory rate 18 /min Anand Garcia Other [employer] Other 11-30-2022 15:40-0500 SaO2% (BldA) [Mass fraction] 98 % Anand Garcia Other [employer] Other 11-30-2022 15:40-0500 Systolic blood pressure 128 mm[Hg] Anand Radha Other [employer] Other 11-16-2022 12:54-0500 Body height 170.2 cm Anaid Mccauley APRN.PIG CONVEYOR OPERATOR Work Phone: [facility] 11-16-2022 12:54-0500 Body weight 78.47 kg Anaid Mccauley HOUSEKEEPING ASSISTANT.PIG CONVEYOR OPERATOR Work Phone: [facility] 11-16-2022 12:54-0500 Diastolic blood pressure 89 mm[Hg] Anaid Mccauley HOUSEKEEPING ASSISTANT.PIG CONVEYOR OPERATOR Work Phone: [facility] 11-16-2022 12:54-0500 Heart rate 76 /min Anaid Mccauley HOUSEKEEPING ASSISTANT.PIG CONVEYOR OPERATOR Work Phone: [facility] 11-16-2022 12:54-0500 Systolic blood pressure 147 mm[Hg] Anaid Mccauley HOUSEKEEPING ASSISTANT.PIG CONVEYOR OPERATOR Work Phone: [facility] 08-26-2022 15:40-0400 Body height 170.18 cm Anand Garcia Other [facility] Other 07-24-2022 15:30-0400 Body weight 77.56 kg Cresencio Robles DO Work Phone: [facility] 07-24-2022 15:30-0400 Diastolic blood pressure 89 mm[Hg] Cresencio Robles DO Work Phone: [facility] 07-24-2022 15:30-0400 Heart rate 62 /min Cresencio Robles DO Work Phone: [facility] 07-24-2022 15:30-0400 Systolic blood pressure 144 mm[Hg] Cresencio Robles DO Work Phone: [facility] 05-25-2022 15:40-0400 Body height 170.18 cm Anand Garcia Other [employer] Other 05-25-2022 15:40-0400 Body mass index (BMI) [Ratio] 27.09 kg/m2 Anand Garcia Other [employer] Other 05-25-2022 15:40-0400 Body temperature 97.2 [degF] Anand Garcia Other [employer] Other 05-25-2022 15:40-0400 Body weight 78.47 kg Anand Garcia Other [employer] Other 05-25-2022 15:40-0400 Diastolic blood pressure 82 mm[Hg] Anand Garcia Other [employer] Other 05-25-2022 15:40-0400 Respiratory rate 18 /min Anand Garcia Other [employer] Other 05-25-2022 15:40-0400 SaO2% (BldA) [Mass fraction] 98 % Anand Garcia Other [employer] Other 05-25-2022 15:40-0400 Systolic blood pressure 124 mm[Hg] Anand Garcia Other [employer] Other 02-12-2022 15:40-0400 Body height 170.18 cm Marianne Yemi Other [employer] Other 02-12-2022 15:40-0400 Body mass index (BMI) [Ratio] 27.09 kg/m2 Marianne Yemi Other [facility] Other 02-12-2022 15:40-0400 Body temperature 97 [degF] Marianne Yemi Other [employer] Other 02-12-2022 15:40-0400 Body weight 78.47 kg Marianne Yemi Other [facility] Other 02-12-2022 15:40-0400 Diastolic blood pressure 80 mm[Hg] Marianne Yemi Other [facility] Other 02-12-2022 15:40-0400 Respiratory rate 18 /min Marianne Yemi Other [employer] Other 02-12-2022 15:40-0400 SaO2% (BldA) [Mass fraction] 99 % Marianne Yemi Other [facility] Other 02-12-2022 15:40-0400 Systolic blood pressure 130 mm[Hg] Marianne Yemi Other [employer] Other 02-06-2022 10:00-0400 Body height 170.18 cm Dario Green II Other [employer] Other 02-06-2022 10:00-0400 Body mass index (BMI) [Ratio] 27.09 kg/m2 Dario Green II Other [employer] Other 02-06-2022 10:00-0400 Body weight 78.47 kg Dario Green II Other [employer] Other 01-19-2022 17:00-0400 Body height 170.18 cm Anand Garcia Other [employer] Other 01-19-2022 17:00-0400 Body mass index (BMI) [Ratio] 27.09 kg/m2 Anand Garcia Other [employer] Other 01-19-2022 17:00-0400 Body temperature 96.7 [degF] Anand Garcia Other [employer] Other 01-19-2022 17:00-0400 Body weight 78.47 kg Anand Garcia Other [employer] Other 01-19-2022 17:00-0400 Diastolic blood pressure 84 mm[Hg] Anand Garcia Other [employer] Other 01-19-2022 17:00-0400 Respiratory rate 18 /min Anand Garcia Other [employer] Other 01-19-2022 17:00-0400 SaO2% (BldA) [Mass fraction] 99 % Anand Garcia Other [employer] Other 01-19-2022 17:00-0400 Systolic blood pressure 130 mm[Hg] Anand Garcia Other [employer] Other Encounters Encounter Date Encounter Type Care Provider Facility Start: 05-14-2025 End: 05-14-2025 ambulatory Anand Garcia DO Work Phone: [facility] Work Phone: Start: 05-14-2025 End: 05-14-2025 Patient encounter procedure Ralph Hoff [facility] Work Phone: Start: 04-23-2025 End: 04-23-2025 Patient encounter procedure Ralph Hoff [facility] Work Phone: Start: 04-19-2025 End: 04-19-2025 Bamboo flowsheet Edith Lombardo SENIOR QUALITY METHODS SPECIALIST [facility] Start: 04-19-2025 End: 04-19-2025 Bamboo flowsheet Edith Lombardo SENIOR QUALITY METHODS SPECIALIST [facility] Start: 04-19-2025 End: 04-19-2025 ambulatory Edith Lombardo SENIOR QUALITY METHODS SPECIALIST [facility] Comment on above: Tendinitis of left r otator cuff (Primary Dx); Tear of left rotator cuff, unspecified tear extent, unspecified whether traumatic Start: 04-17-2025 End: 04-17-2025 Bamboo flowsheet Edith Lombardo SENIOR QUALITY METHODS SPECIALIST [facility] Start: 04-17-2025 End: 04-17-2025 Bamboo flowsheet Edith Lombardo SENIOR QUALITY METHODS SPECIALIST [facility] Start: 04-17-2025 End: 04-17-2025 ambulatory Edith Lombardo SENIOR QUALITY METHODS SPECIALIST [facility] Comment on above: Tendinitis of left r otator cuff (Primary Dx); Tear of left rotator cuff, unspecified tear extent, unspecified whether traumatic Start: 04-12-2025 End: 04-12-2025 Bamboo flowsheet Jalen Magana SENIOR QUALITY METHODS SPECIALIST [facility] Start: 04-12-2025 End: 04-12-2025 Bamboo flowsheet Jalen Magana SENIOR QUALITY METHODS SPECIALIST [facility] Start: 04-12-2025 End: 04-12-2025 ambulatory Jalen Magana SENIOR QUALITY METHODS SPECIALIST [facility] Comment on above: Tendinitis of left r otator cuff (Primary Dx); Tear of left rotator cuff, unspecified tear extent, unspecified whether traumatic; Other shoulder lesions, left shoulder Start: 04-10-2025 End: 04-10-2025 Bamboo flowsheet Jalen Magana SENIOR QUALITY METHODS SPECIALIST [facility] Start: 04-10-2025 End: 04-10-2025 Bamboo flowsheet Jalen Magana SENIOR QUALITY METHODS SPECIALIST [facility] Start: 04-10-2025 End: 04-10-2025 ambulatory Jalen Magana SENIOR QUALITY METHODS SPECIALIST [facility] Comment on above: Tendinitis of left r otator cuff (Primary Dx); Tear of left rotator cuff, unspecified tear extent, unspecified whether traumatic; Other shoulder lesions, left shoulder Start: 04-05-2025 End: 04-05-2025 Bamboo flowsheet Edith Lopezy SENIOR QUALITY METHODS SPECIALIST [facility] Start: 04-05-2025 End: 04-05-2025 Bamboo flowsheet Edithangela Mensahbley SENIOR QUALITY METHODS SPECIALIST [facility] Start: 04-05-2025 End: 04-05-2025 ambulatory Edith Lopezy SENIOR QUALITY METHODS SPECIALIST [facility] Comment on above: Tendinitis of left r otator cuff (Primary Dx); Tear of left rotator cuff, unspecified tear extent, unspecified whether traumatic; Other shoulder lesions, left shoulder Start: 04-04-2025 End: 04-04-2025 Office outpatient visit 15 minutes Simona Carlson APRN.PIG CONVEYOR OPERATOR Work Phone: Neurology Comment on above: Migraine without aur a and without status migrainosus, not intractable (Primary Dx); Migraine with aura and without status migrainosus, not intractable Start: 04-04-2025 End: 04-04-2025 ambulatory SIMONA CARLSON Facility:[facility] Start: 04-03-2025 End: 04-03-2025 ambulatory Jalen Magana SENIOR QUALITY METHODS SPECIALIST [facility] Comment on above: Tendinitis of left r otator cuff (Primary Dx); Tear of left rotator cuff, unspecified tear extent, unspecified whether traumatic; Other shoulder lesions, left shoulder Start: 03-29-2025 End: 03-29-2025 Bamboo flowsheet Edith Lopezy SENIOR QUALITY METHODS SPECIALIST [facility] Start: 03-29-2025 End: 03-29-2025 Bamboo flowsheet Edith Kelbley SENIOR QUALITY METHODS SPECIALIST [facility] Start: 03-29-2025 End: 03-29-2025 ambulatory Edith Lombardo SENIOR QUALITY METHODS SPECIALIST [facility] Comment on above: Tendinitis of left r otator cuff (Primary Dx); Tear of left rotator cuff, unspecified tear extent, unspecified whether traumatic; Other shoulder lesions, left shoulder Start: 03-27-2025 End: 03-27-2025 Bamboo flowsheet Jalen Izzy SENIOR QUALITY METHODS SPECIALIST [facility] Start: 03-27-2025 End: 03-27-2025 Bamboo flowsheet Jalen Izzy SENIOR QUALITY METHODS SPECIALIST [facility] Start: 03-27-2025 End: 03-27-2025 ambulatory Jalen Magana SENIOR QUALITY METHODS SPECIALIST [facility] Comment on above: Tendinitis of left r otator cuff (Primary Dx); Tear of left rotator cuff, unspecified tear extent, unspecified whether traumatic; Other shoulder lesions, left shoulder Start: 03-22-2025 End: 03-22-2025 ambulatory XAVIER HARRISON Not Available Start: 03-20-2025 End: 03-20-2025 Patient encounter procedure Anand Garcia DO [facility] Work Phone: Start: 03-20-2025 End: 03-20-2025 Bamboo flowsheet Kathryn Flynn PT [facility] Start: 03-20-2025 End: 03-20-2025 Bamboo flowsheet Kathryn Flynn PT [facility] Start: 03-20-2025 End: 03-20-2025 ambulatory Kathryn Flynn PT [facility] Comment on above: Tendinitis of left r otator cuff (Primary Dx); Tear of left rotator cuff, unspecified tear extent, unspecified whether traumatic; Other shoulder lesions, left shoulder Start: 03-15-2025 End: 03-15-2025 Bamboo flowsheet Jalen Izzy SENIOR QUALITY METHODS SPECIALIST [facility] Start: 03-15-2025 End: 03-15-2025 Bamboo flowsheet Jalen Izzy SENIOR QUALITY METHODS SPECIALIST [facility] Start: 03-15-2025 End: 03-15-2025 ambulatory Jalen Izzy SENIOR QUALITY METHODS SPECIALIST [facility] Comment on above: Tendinitis of left r otator cuff (Primary Dx); Tear of left rotator cuff, unspecified tear extent, unspecified whether traumatic; Other shoulder lesions, left shoulder Start: 03-13-2025 End: 03-13-2025 Bamboo flowsheet Edith Lombardo SENIOR QUALITY METHODS SPECIALIST [facility] Start: 03-13-2025 End: 03-13-2025 Bamboo flowsheet Edith Lombardo SENIOR QUALITY METHODS SPECIALIST [facility] Start: 03-13-2025 End: 03-13-2025 ambulatory Edith Lombardo SENIOR QUALITY METHODS SPECIALIST [facility] Comment on above: Tendinitis of left r otator cuff (Primary Dx); Tear of left rotator cuff, unspecified tear extent, unspecified whether traumatic; Other shoulder lesions, left shoulder Start: 03-08-2025 End: 03-08-2025 Bamboo flowsheet Jalen Magana SENIOR QUALITY METHODS SPECIALIST [facility] Start: 03-08-2025 End: 03-08-2025 Bamboo flowsheet Jalen Magana SENIOR QUALITY METHODS SPECIALIST [facility] Start: 03-08-2025 End: 03-08-2025 ambulatory Jalen Magana SENIOR QUALITY METHODS SPECIALIST [facility] Comment on above: Tendinitis of left r otator cuff (Primary Dx); Tear of left rotator cuff, unspecified tear extent, unspecified whether traumatic; Other shoulder lesions, left shoulder Start: 03-06-2025 End: 03-06-2025 ambulatory Jalen Magana SENIOR QUALITY METHODS SPECIALIST [facility] Comment on above: Tendinitis of left r otator cuff (Primary Dx); Tear of left rotator cuff, unspecified tear extent, unspecified whether traumatic; Other shoulder lesions, left shoulder Start: 03-05-2025 End: 03-05-2025 ambulatory Anand Garcia DO Work Phone: [facility] Work Phone: Start: 03-05-2025 End: 03-05-2025 Patient encounter procedure Anand Garcia DO Work Phone: [facility] Work Phone: Start: 03-01-2025 End: 03-01-2025 Bamboo flowsheet Jalen Magana SENIOR QUALITY METHODS SPECIALIST [facility] Start: 03-01-2025 End: 03-01-2025 Bamboo flowsheet Jalen Magana SENIOR QUALITY METHODS SPECIALIST [facility] Start: 03-01-2025 End: 03-01-2025 ambulatory Jalen Magana SENIOR QUALITY METHODS SPECIALIST [facility] Comment on above: Tendinitis of left r otator cuff (Primary Dx); Tear of left rotator cuff, unspecified tear extent, unspecified whether traumatic; Other shoulder lesions, left shoulder Start: 02-27-2025 End: 02-27-2025 Bamboo flowsheet Kathryn Flynn PT [facility] Start: 02-27-2025 End: 02-27-2025 Bamboo flowsheet Kathryn Flynn PT [facility] Start: 02-27-2025 End: 02-27-2025 ambulatory Kathryn Flynn PT [facility] Comment on above: Tendinitis of left r otator cuff (Primary Dx); Tear of left rotator cuff, unspecified tear extent, unspecified whether traumatic; Other shoulder lesions, left shoulder Start: 02-22-2025 End: 02-22-2025 Bamboo flowsheet Jalen Magana SENIOR QUALITY METHODS SPECIALIST [facility] Start: 02-22-2025 End: 02-22-2025 Bamboo flowsheet Jalen Magana SENIOR QUALITY METHODS SPECIALIST [facility] Start: 02-22-2025 End: 02-22-2025 ambulatory Jalen Magana SENIOR QUALITY METHODS SPECIALIST [facility] Comment on above: Tendinitis of left r otator cuff (Primary Dx); Tear of left rotator cuff, unspecified tear extent, unspecified whether traumatic; Other shoulder lesions, left shoulder Start: 02-20-2025 End: 02-20-2025 Bamboo flowsheet Jalen Magana SENIOR QUALITY METHODS SPECIALIST [facility] Start: 02-20-2025 End: 02-20-2025 Bamboo flowsheet Jalen Magana SENIOR QUALITY METHODS SPECIALIST [facility] Start: 02-20-2025 End: 02-20-2025 ambulatory Jalen Magana SENIOR QUALITY METHODS SPECIALIST [facility] Comment on above: Tendinitis of left r otator cuff (Primary Dx); Tear of left rotator cuff, unspecified tear extent, unspecified whether traumatic; Other shoulder lesions, left shoulder Start: 02-15-2025 End: 02-15-2025 Bamboo flowsheet Xavier Harrison SENIOR QUALITY METHODS SPECIALIST [facility] Start: 02-15-2025 End: 02-15-2025 Bamboo flowsheet Xavier Harrison SENIOR QUALITY METHODS SPECIALIST [facility] Start: 02-15-2025 End: 02-15-2025 ambulatory Xavier Harrison SENIOR QUALITY METHODS SPECIALIST [facility] Comment on above: Tendinitis of left r otator cuff (Primary Dx); Tear of left rotator cuff, unspecified tear extent, unspecified whether traumatic; Other shoulder lesions, left shoulder Start: 02-13-2025 End: 02-13-2025 Bamboo flowsheet Edith Lombardo SENIOR QUALITY METHODS SPECIALIST [facility] Start: 02-13-2025 End: 02-13-2025 Bamboo flowsheet Edith Lombardo SENIOR QUALITY METHODS SPECIALIST [facility] Start: 02-13-2025 End: 02-13-2025 ambulatory Edith Lombardo SENIOR QUALITY METHODS SPECIALIST [facility] Comment on above: Tendinitis of left r otator cuff (Primary Dx); Tear of left rotator cuff, unspecified tear extent, unspecified whether traumatic; Other shoulder lesions, left shoulder Start: 02-09-2025 End: 02-09-2025 Bamboo flowsheet Kathryn Flynn PT [facility] Start: 02-09-2025 End: 02-09-2025 Bamboo flowsheet Kathryn Flynn PT [facility] Start: 02-09-2025 End: 02-09-2025 ambulatory Kathryn Flynn PT [facility] Comment on above: Tendinitis of left r otator cuff (Primary Dx); Tear of left rotator cuff, unspecified tear extent, unspecified whether traumatic; Other shoulder lesions, left shoulder Start: 02-07-2025 End: 02-07-2025 Bamboo flowsheet Kathryn Flynn PT [facility] Start: 02-07-2025 End: 02-07-2025 Bamboo flowsheet Kathryn Flynn PT [facility] Start: 02-07-2025 End: 02-07-2025 ambulatory Kathryn Flynn PT [facility] Comment on above: Tendinitis of left r otator cuff (Primary Dx); Tear of left rotator cuff, unspecified tear extent, unspecified whether traumatic; Other shoulder lesions, left shoulder Start: 01-22-2025 End: 01-22-2025 ambulatory Anand Garcia DO Work Phone: [facility] Work Phone: Start: 01-22-2025 End: 01-22-2025 Patient encounter procedure Anand Garcia DO Work Phone: [facility] Work Phone: Start: 01-22-2025 End: 01-22-2025 Patient encounter procedure Anand Garcia DO Work Phone: [facility] [place] [facility] Start: 01-22-2025 End: 01-22-2025 ambulatory Anand Garcia DO Work Phone: [facility] Work Phone: Start: 01-18-2025 End: 01-18-2025 Bamboo flowsheet Jalen Magana SENIOR QUALITY METHODS SPECIALIST [facility] Start: 01-18-2025 End: 01-18-2025 Bamboo flowsheet Jalen Magana SENIOR QUALITY METHODS SPECIALIST [facility] Start: 01-16-2025 End: 01-16-2025 ambulatory JALEN MAGANA Not Available Start: 01-12-2025 End: 01-15-2025 ambulatory KATHRYN SALTY Not Available Start: 01-10-2025 Non-patient / Non-visit Anand Garcia DO Work Phone: [facility] Work Phone: Start: 01-10-2025 End: 01-10-2025 Admission to same day surgery center Anand Garcia DO Work Phone: [facility] [place] Start: 01-10-2025 End: 01-10-2025 ambulatory Anand Garcia DO Work Phone: [facility] Work Phone: Start: 12-26-2024 End: 12-26-2024 Patient encounter procedure Anand Garcia DO Work Phone: [facility] Work Phone: Start: 12-26-2024 End: 12-26-2024 ambulatory Anand Garcia DO Work Phone: [facility] Work Phone: Start: 12-26-2024 Encounter for preprocedural laboratory examination Ralph Hoff [facility] Start: 12-19-2024 End: 12-19-2024 ambulatory Anand Garcia DO Work Phone: [facility] Work Phone: Start: 12-19-2024 End: 12-19-2024 Patient encounter procedure Anand Garcia DO Work Phone: [facility] Work Phone: Start: 12-18-2024 End: 12-18-2024 ambulatory Anand Garcia DO Work Phone: [facility] Work Phone: Start: 12-18-2024 End: 12-18-2024 Patient encounter procedure Anand Garcia DO Work Phone: [facility] Work Phone: Start: 12-11-2024 End: 12-11-2024 ambulatory Kathryn Flynn PT [facility] Comment on above: Tear of left rotator cuff, unspecified tear extent, unspecified whether traumatic (Primary Dx); Other shoulder lesions, left shoulder Start: 12-07-2024 End: 12-08-2024 Telephone encounter Salma Callejas RN Work Phone: [facility] Start: 12-04-2024 End: 12-04-2024 ambulatory Xavier Harrison SENIOR QUALITY METHODS SPECIALIST [facility] Comment on above: Tear of left rotator cuff, unspecified tear extent, unspecified whether traumatic (Primary Dx); Other shoulder lesions, left shoulder Start: 12-04-2024 End: 12-04-2024 Bamboo flowsheet Xavier Brink SENIOR QUALITY METHODS SPECIALIST [facility] Start: 12-04-2024 End: 12-04-2024 Bamboo flowsheet Xavier Brink SENIOR QUALITY METHODS SPECIALIST [facility] Start: 11-27-2024 End: 11-27-2024 ambulatory Xavier Harrison SENIOR QUALITY METHODS SPECIALIST [facility] Comment on above: Tear of left rotator cuff, unspecified tear extent, unspecified whether traumatic (Primary Dx); Other shoulder lesions, left shoulder Start: 11-27-2024 End: 11-27-2024 Bamboo flowsheet Xavier Brink SENIOR QUALITY METHODS SPECIALIST [facility] Start: 11-27-2024 End: 11-27-2024 Bamboo flowsheet Xavier Brink SENIOR QUALITY METHODS SPECIALIST [facility] Start: 11-20-2024 End: 11-20-2024 Bamboo flowsheet Xavier Brink SENIOR QUALITY METHODS SPECIALIST [facility] Start: 11-20-2024 End: 11-20-2024 Bamboo flowsheet Xavier Brink SENIOR QUALITY METHODS SPECIALIST [facility] Start: 11-20-2024 End: 11-20-2024 ambulatory Xavier Brink SENIOR QUALITY METHODS SPECIALIST [facility] Comment on above: Tear of left rotator cuff, unspecified tear extent, unspecified whether traumatic (Primary Dx); Other shoulder lesions, left shoulder Start: 11-16-2024 End: 11-16-2024 ambulatory Anand Garcia DO Work Phone: [facility] Work Phone: Start: 11-16-2024 End: 11-16-2024 Patient encounter procedure Anand Garcia DO Work Phone: [facility] Work Phone: Start: 11-13-2024 End: 11-13-2024 ambulatory Xavier Harrison SENIOR QUALITY METHODS SPECIALIST [facility] Comment on above: Tear of left rotator cuff, unspecified tear extent, unspecified whether traumatic (Primary Dx); Other shoulder lesions, left shoulder Start: 11-13-2024 End: 11-13-2024 Bamboo flowsheet Xavier Brink SENIOR QUALITY METHODS SPECIALIST [facility] Start: 11-13-2024 End: 11-13-2024 Bamboo flowsheet Xavier Brink SENIOR QUALITY METHODS SPECIALIST [facility] Start: 11-08-2024 End: 11-08-2024 Office outpatient visit 15 minutes Sanjay [facility] Work Phone: [facility] Comment on above: Other seborrheic adeel matitis (Primary Dx) Start: 11-08-2024 End: 11-08-2024 ambulatory SANJAY HAWKINS Not Available Start: 11-08-2024 End: 11-08-2024 Bamboo flowsheet Sanjay Hawkins PA Work Phone: [facility] Start: 11-08-2024 End: 11-08-2024 Bamboo flowsheet Sanjay Hawkins PA Work Phone: [facility] Start: 11-06-2024 End: 11-06-2024 ambulatory Xavier Harrison SENIOR QUALITY METHODS SPECIALIST [facility] Comment on above: Tear of left rotator cuff, unspecified tear extent, unspecified whether traumatic (Primary Dx); Other shoulder lesions, left shoulder Start: 11-06-2024 End: 11-06-2024 Bamboo flowsheet Xavier Harrison SENIOR QUALITY METHODS SPECIALIST [facility] Start: 11-06-2024 End: 11-06-2024 Bamboo flowsheet Xavier Harrison SENIOR QUALITY METHODS SPECIALIST [facility] Start: 10-30-2024 End: 10-30-2024 Bamboo flowsheet Kathryn Flynn PT [facility] Start: 10-30-2024 End: 10-30-2024 Bamboo flowsheet Kathryn Flynn PT [facility] Start: 10-30-2024 End: 10-30-2024 ambulatory Kathryn Flynn PT [facility] Comment on above: Tear of left rotator cuff, unspecified tear extent, unspecified whether traumatic (Primary Dx); Other shoulder lesions, left shoulder Start: 10-21-2024 Non-patient / Non-visit Anand Garcia DO Work Phone: [facility] Physician [facility] Work Phone: Start: 10-19-2024 End: 10-19-2024 Patient encounter procedure Anand Garcia DO Work Phone: [facility] Physician [facility] Work Phone: Start: 10-19-2024 End: 10-19-2024 ambulatory Anand Garcia Facility:[facility] Start: 10-12-2024 End: 10-12-2024 ambulatory ANAND GARCIA Not Available Start: 10-11-2024 End: 10-11-2024 Telephone encounter Jacy De La Rosachiara [facility] Comment on above: Insurance Authorizat ion (NURTEC ODT 75 mg disintegrating tablet); NURTEC ODT 75 mg disintegrating tablet Start: 10-04-2024 End: 10-04-2024 ambulatory SIMONA CARLSON Facility:[facility] Start: 10-04-2024 End: 10-04-2024 Patient encounter procedure Simona Carlson HOUSEKEEPING ASSISTANT.PIG CONVEYOR OPERATOR Work Phone: Neurology Comment on above: Migraine without aur a and without status migrainosus, not intractable (Primary Dx); Migraine with aura and without status migrainosus, not intractable Start: 09-20-2024 End: 09-20-2024 Patient encounter procedure Anand Garcia DO Work Phone: [facility] Work Phone: Start: 08-30-2024 End: 08-30-2024 Office outpatient new 45 minutes Sanjay Northeim PA Work Phone: [facility] Comment on above: Other seborrheic adeel matitis (Primary Dx) Start: 08-30-2024 End: 08-30-2024 ambulatory SANJAY NORTHEIM Not Available Start: 08-30-2024 End: 08-30-2024 Bamboo flowsheet Sanjay Northeim PA Work Phone: [facility] Start: 08-30-2024 End: 08-30-2024 Bamboo flowsheet Sanjay Northeim PA Work Phone: [facility] Start: 08-18-2024 End: 08-18-2024 Patient encounter procedure DO Anand Garcia Work Phone: [facility] Work Phone: Start: 08-18-2024 End: 08-18-2024 ambulatory DO Anand Garcia Work Phone: [facility] Work Phone: Start: 07-21-2024 End: 07-26-2024 ambulatory Cresencio P Robles DO Work Phone: Neurology Comment on above: Loss of hair Start: 07-20-2024 End: 07-24-2024 Telephone encounter Salma Callejas RN Work Phone: [facility] Comment on above: Insurance Authorizat ion; Qulipta 60MG tablets Start: 06-21-2024 End: 06-21-2024 Patient encounter procedure DO Anand Garcia Work Phone: [facility] [place] Work Phone: Start: 06-09-2024 Refill Simona torrez APRN.PIG CONVEYOR OPERATOR Work Phone: Neurology Comment on above: Refill Request Start: 06-08-2024 ambulatory Cresencio P Robles D O Work Phone: Neurology Comment on above: Prior Authorization needed Start: 06-03-2024 Non-patient / Non-visit DO Maxi Garcia Work Phone: [facility] Work Phone: Start: 03-29-2024 End: 03-29-2024 Patient encounter procedure Simona Carlson APRN.PIG CONVEYOR OPERATOR Work Phone: Neurology Comment on above: Migraine with aura a nd without status migrainosus, not intractable (Primary Dx); Migraine without aura and without status migrainosus, not intractable Start: 03-03-2024 ambulatory CRESENCIO P ROBLES Facility:[facility] Start: 03-03-2024 End: 03-03-2024 Subsequent hospital visit by physician Wilbur Mcbride (I-Stat/1.5t) Work Phone: Radiology Comment on above: Thunderclap headache [G44.53] Start: 03-02-2024 Telephone encounter Deb Jernigan [facility] Start: 12-24-2023 Telephone encounter Cresencio Onofre on DO Work Phone: Neurology Comment on above: Insurance Authorizat ion (Hjkpzyp-Chrdvk-Rfioo Theraputics) Insurance Authorizat ion (Tfmgrdf-Upzozs-Vpoqy Theraputic) Start: 12-20-2023 ambulatory Cresencio Anaya O Work Phone: Neurology Comment on above: Possible migraine wi th stroke systems Start: 10-13-2023 Telephone encounter Salma rodriguez RN Work Phone: [facility] Comment on above: Insurance Authorizat ion (Aimovig 140MG/ML auto-injectors/) Start: 09-20-2023 End: 09-20-2023 ambulatory Anand Garcia Other [employer] Other Start: 09-20-2023 Telephone encounter Anand Garcia [facility] Start: 09-13-2023 End: 09-13-2023 ambulatory Anand Garcia Other [employer] Other Start: 09-13-2023 Office outpatient vi sit 25 minutes Anand Garcia [facility] Start: 09-09-2023 Telephone encounter Cresencio Onofre on DO Work Phone: Neurology Comment on above: Insurance Authorizat ion (TRUDHESA) Start: 07-29-2023 End: 07-29-2023 ambulatory DO Anand Garcia Work Phone: [facility] Work Phone: Start: 07-29-2023 End: 07-29-2023 Patient encounter procedure DO Anand Garcia Work Phone: [facility] Work Phone: Start: 06-09-2023 End: 06-09-2023 ambulatory Anand Garcia Other [employer] Other Start: 06-09-2023 Office outpatient vi sit 25 minutes Anand Garcia [facility] Start: 01-14-2023 End: 01-14-2023 ambulatory Marianne Plummer Other [employer] Other Start: 01-14-2023 Office outpatient vi sit 25 minutes Marianne Plummer [facility] [place] Start: 01-02-2023 End: 01-03-[address] ANAND GARCIA Facility:[facility] Start: 12-29-2022 End: 12-29-2022 ambulatory Anand Garcia Other [employer] Other Start: 12-29-2022 Telephone encounter Anand Garcia [facility] Start: 11-30-2022 End: 11-30-2022 ambulatory Anand Garcia Other [employer] Other Start: 11-30-2022 Office outpatient vi sit 15 minutes Anand Garcia [facility] Start: 11-23-2022 Refill Cresencio Moralez Work Phone: Neurology Comment on above: Refill Request Start: 11-16-2022 End: 11-16-2022 Patient encounter procedure Anaid Mccauley APRN.PIG CONVEYOR OPERATOR Work Phone: [facility] Comment on above: Cervicalgia (Primary Dx); History of fusion of cervical spine; Cervical spondylosis Start: 11-16-2022 End: 11-16-2022 Subsequent hospital visit by physician Wilbur Mcbride (I-Stat/1.5t) Work Phone: Radiology Comment on above: Cervicalgia [M54.2] Start: 11-14-2022 End: 11-15-[address] ANAND GARCIA Facility:[facility] Start: 11-13-2022 Telephone encounter Lori mujica (Pas) Radiology Comment on above: appointment instruct ions (MRI- 11/16/2022 @ 1040am/Appointment reminder call - LEFT MESSAGE - with directions to office and the # to call if they cannot keep this appointment/[phone]/) Start: 10-06-2022 Telephone encounter Salma rodriguez RN Work Phone: [facility] Comment on above: Insurance Authorizat ion (Aimovig 140MG/ML auto-injectors/) Start: 09-28-2022 End: 09-28-2022 ambulatory Anaid Mccauley APRN.PIG CONVEYOR OPERATOR Work Phone: [facility] Comment on above: Spinal stenosis of c ervical region (Primary Dx); Cervicalgia; History of fusion of cervical spine; Cervical spondylosis Start: 09-28-2022 End: 09-28-2022 Telemedicine consultation with patient Anaid Mccauley APRN.PIG CONVEYOR OPERATOR Work Phone: [facility] Start: 09-11-2022 ambulatory No Pcp (Historical) [facility] Start: 08-26-2022 End: 08-26-2022 ambulatory Anand Garcia Other [employer] Other Start: 08-26-2022 Telephone encounter Anand Garcia [facility] Start: 07-29-2022 End: 07-29-2022 ambulatory Anand Garcia Other [employer] Other Start: 07-29-2022 Telephone encounter Anand Garcia [facility] Start: 07-24-2022 End: 07-24-2022 Patient encounter procedure Cresencio Robles DO Work Phone: Neurology Comment on above: Migraine with aura a nd without status migrainosus, not intractable (Primary Dx); Cervicalgia; Migraine without aura and without status migrainosus, not intractable; Bilateral occipital neuralgia Start: 06-02-2022 End: 06-02-2022 Patient encounter procedure DO Anand Garcia [facility] Start: 05-27-2022 Telephone encounter Anand Garcia [facility] Start: 05-27-2022 End: 05-28-[address] ANAND GARCIA [employer] Other Start: 05-26-2022 End: 05-27-[address] AANND GARCIA Facility: Start: 05-25-2022 End: 05-25-2022 ambulatory Anand Garcia Other [employer] Other Start: 05-25-2022 Office outpatient vi sit 25 minutes Anand Garcia [facility] [place] Start: 05-09-2022 End: 05-10-[address] ANAND GARCIA Facility:[facility] Start: 02-12-2022 End: 02-12-2022 ambulatory Marianne Yemi Other [employer] Other Start: 02-12-2022 Office outpatient vi sit 15 minutes Marianne Yeim [facility] [place] Start: 02-11-2022 End: 02-11-2022 ambulatory Dario Peter II Other [employer] Other Start: 02-11-2022 Telephone encounter Dario Peter II [facility] Start: 02-06-2022 End: 02-06-2022 ambulatory Dario [place] II Other [employer] Other Start: 02-06-2022 Office outpatient ne w 45 minutes Dario [place] II [facility] Start: 02-03-2022 End: 02-04-[address] ANAND GARCIA Facility:[facility] Start: 01-28-2022 Encounter for preprocedural laboratory examination [facility] Start: 01-28-2022 End: 01-28-[address] YANNICK ESTRADA Facility:[facility] Start: 01-24-2022 End: 01-25-[address] ANAND GARCIA Facility:[facility] Start: 01-24-2022 End: 01-25-2022 Encounter for preprocedural laboratory examination DR ANAND GARCAI Facility:[facility] Start: 01-20-2022 End: 01-21-[address] ANAND GARCIA Facility:[facility] Start: 01-19-2022 Encounter for preprocedural cardiovascular examination DR YANNICK ESTRADA [facility] Start: 01-19-2022 Encounter for preprocedural laboratory examination [facility] Start: 01-19-2022 End: 01-19-2022 ambulatory Anand Garcia Other [employer] Other Start: 01-19-2022 Encounter for other preprocedural examination Anand Garcia [facility] [place] Start: 01-19-2022 Office outpatient vi sit 15 minutes Anand Garcia [facility] [place] Start: 01-15-2022 End: 01-16-[address] YANNICK ESTRADA Facility:[facility] Start: 01-15-2022 End: 01-16-2022 Encounter for preprocedural cardiovascular examination DR YANNICK ESTRADA Facility:[facility] Procedures Date Procedure Procedure Detail Performing Clinician Start: 01-22-2025 Plain X-ray of left shoulder Anand Garcia DO Work Phone: Start: 01-10-2025 OR Shoulder Scope RCR/Biceps Tendon (Left) Anand Garcia DO Work Phone: Start: 10-19-2024 Plain X-ray of left shoulder Anand Garcia DO Work Phone: Start: 08-18-2024 Screening mammograph y of bilateral breasts DO Anand Garcia Work Phone: Start: 03-03-2024 Mra head w/o contrst material Cresencio Armstrong DO Work Phone: Start: 07-29-2023 Screening mammograph y of bilateral breasts DO Anand Garcia Work Phone: Start: 11-16-2022 Mri spinal canal cer vical w/o contrast matrl Anaid Mccauley HOUSEKEEPING ASSISTANT.PIG CONVEYOR OPERATOR Work Phone: Start: 07-17-2022 Adult depression scr eening assessment Cresencio Robles DO Work Phone: Start: 06-02-2022 Screening mammograph y of bilateral breasts DO Anand Garcia Work Phone: Plan of Treatment Date Care Activity Detail Author Start: 11-08-2025 End: 11-08-2025 Patient encounter procedure 11/08/2025 3:30 PM EST Office Visit [facility] [address] [place] [address] Sanjay Hawkins PA [address] [place] [id number] [facility] Start: 10-05-2025 End: 10-05-2025 Patient encounter procedure 10/05/2025 4:00 PM EST Office Visit Neurology [address] [place] [address] Simona Carlson, HOUSEKEEPING ASSISTANT.PIG CONVEYOR OPERATOR [address] [place] [address] FOLLOW UP 6 MONTHS Neurology Comment on above: FOLLOW UP 6 MONTHS Start: 07-02-2025 Influenza vaccination Influenz a Vaccine (Season Ended) [facility] Start: 04-19-2025 End: 04-19-2025 ambulatory [facility] Comment on above: Arrived Start: 04-17-2025 End: 04-17-2025 ambulatory [facility] Comment on above: Tendinitis of left r otator cuff (Primary Dx); Tear of left rotator cuff, unspecified tear extent, unspecified whether traumatic Start: 04-12-2025 End: 04-12-2025 ambulatory [facility] Comment on above: Arrived Start: 04-10-2025 End: 04-10-2025 ambulatory [facility] Comment on above: Arrived Start: 04-05-2025 End: 04-05-2025 ambulatory [facility] Comment on above: Arrived Start: 04-04-2025 End: 04-04-2025 Patient encounter procedure 04/04/2025 4:00 PM EDT Office Visit Neurology [address] [place] [address] Simona Carlson, HOUSEKEEPING ASSISTANT.PIG CONVEYOR OPERATOR [address] [place] [address] Return in about 6 months (around 04/04/2025), or if symptoms worsen or fail to improve, for Follow-up. Neurology Comment on above: Return in about 6 mo nths (around 04/04/2025), or if symptoms worsen or fail to improve, for Follow-up. Start: 04-03-2025 End: 04-03-2025 ambulatory 04/03/2025 10:30 AM EDT Treatment [facility] [address] [facility] [place] [address] Jalen Magana, SENIOR QUALITY METHODS SPECIALIST [facility] Start: 03-29-2025 End: 03-29-2025 ambulatory [facility] Comment on above: Arrived Start: 03-27-2025 End: 03-27-2025 ambulatory [facility] Comment on above: Arrived Start: 03-22-2025 End: 03-22-2025 ambulatory 03/22/2025 10:30 AM EDT Treatment [facility] [address] [facility] [address] [place] [address] Xavier Harrison, SENIOR QUALITY METHODS SPECIALIST [facility] Start: 03-20-2025 End: 03-20-2025 ambulatory [facility] Comment on above: Tendinitis of left r otator cuff (Primary Dx); Tear of left rotator cuff, unspecified tear extent, unspecified whether traumatic; Other shoulder lesions, left shoulder Start: 03-15-2025 End: 03-15-2025 ambulatory [facility] Comment on above: Tendinitis of left r otator cuff (Primary Dx); Tear of left rotator cuff, unspecified tear extent, unspecified whether traumatic; Other shoulder lesions, left shoulder Start: 03-13-2025 End: 03-13-2025 ambulatory [facility] Comment on above: Arrived Start: 03-08-2025 End: 03-08-2025 ambulatory 03/08/2025 12:00 PM EDT Treatment [facility] [address] [facility] [place] [address] Jalen Magana, SENIOR QUALITY METHODS SPECIALIST [facility] Start: 03-01-2025 End: 03-01-2025 ambulatory [facility] Comment on above: Tendinitis of left r otator cuff (Primary Dx); Tear of left rotator cuff, unspecified tear extent, unspecified whether traumatic; Other shoulder lesions, left shoulder Start: 02-27-2025 End: 02-27-2025 ambulatory [facility] Comment on above: Arrived Start: 02-22-2025 End: 02-22-2025 ambulatory [facility] Comment on above: Arrived Start: 02-20-2025 End: 02-20-2025 ambulatory [facility] Comment on above: Arrived Start: 02-15-2025 End: 02-15-2025 ambulatory [facility] Comment on above: Arrived Start: 02-13-2025 End: 02-13-2025 ambulatory [facility] Comment on above: Arrived Start: 02-09-2025 End: 02-09-2025 ambulatory [facility] Comment on above: Arrived Start: 02-07-2025 End: 02-07-2025 ambulatory 02/07/2025 2:00 PM EDT Treatment [facility] [address] [place] [address] Kathryn Flynn, PT Arrived [facility] Comment on above: Arrived Start: 02-01-2025 End: 02-01-2025 ambulatory 02/01/2025 1:00 PM EDT Treatment [facility] [address] [place] [address] Jalen Magana, SENIOR QUALITY METHODS SPECIALIST [facility] Start: 01-30-2025 End: 01-30-2025 ambulatory 01/30/2025 12:30 PM EDT Treatment [facility] [address] [place] [address] Kathryn Flynn, PT [facility] Start: 01-25-2025 End: 01-25-2025 ambulatory 01/25/2025 1:00 PM EDT Treatment [facility] [address] [place] [address] Jalen Magana, SENIOR QUALITY METHODS SPECIALIST [facility] Start: 01-22-2025 End: 01-22-2025 ambulatory 01/22/2025 1:30 PM EDT Treatment [facility] [address] [place] [address] Jalen Magana, SENIOR QUALITY METHODS SPECIALIST [facility] Start: 01-22-2025 Plain X-ray of left shoulder XR shoulder LT min 2V* [facility] Start: 01-22-2025 XR Shoulder - left Views [facility] Start: 01-18-2025 End: 01-18-2025 ambulatory 01/18/2025 2:00 PM EDT Treatment [facility] [address] [place] [address] Jalen Magana, SENIOR QUALITY METHODS SPECIALIST Tendinitis of left rotator cuff (Primary Dx) [facility] Comment on above: Tendinitis of left r otator cuff (Primary Dx) Start: 01-10-2025 End: 01-10-2025 [facility] Start: 12-11-2024 End: 12-11-2024 ambulatory 12/11/2024 3:30 PM EST Treatment [facility] [address] [place] [address] Kathryn Flynn, PT [facility] Start: 12-04-2024 End: 12-04-2024 ambulatory [facility] Comment on above: Tear of left rotator cuff, unspecified tear extent, unspecified whether traumatic (Primary Dx); Other shoulder lesions, left shoulder Start: 11-27-2024 End: 11-27-2024 ambulatory [facility] Comment on above: Tear of left rotator cuff, unspecified tear extent, unspecified whether traumatic (Primary Dx); Other shoulder lesions, left shoulder Start: 11-20-2024 End: 11-20-2024 ambulatory 11/20/2024 3:30 PM EST Treatment [facility] [address] [place] [address] Xavier Harrison, JADIEL [facility] Start: 11-20-2024 End: 11-20-2024 ambulatory [facility] Comment on above: Arrived Start: 11-13-2024 End: 11-13-2024 ambulatory [facility] Comment on above: Arrived Start: 11-08-2024 End: 11-08-2024 Patient encounter procedure [facility] Comment on above: Arrived Start: 11-06-2024 End: 11-06-2024 ambulatory [facility] Comment on above: Arrived Start: 10-30-2024 End: 10-30-2024 ambulatory 10/30/2024 11:00 AM EST Evaluation [facility] [address] [place] [address] Kathryn Flynn, PT Arrived [facility] Comment on above: Arrived Start: 10-04-2024 End: 10-04-2024 Patient encounter procedure 10/04/2024 4:00 PM EST Office Visit Neurology [address] [id number] Simona Carlson, GHISLAINE.PIG CONVEYOR OPERATOR [address] [place] [address] Reason for visit: Specialist In - Person Office Visit Neurology Comment on above: Reason for visit: Sp ecialist In - Person Office Visit Start: 08-30-2024 End: 08-30-2024 Patient encounter procedure 08/30/2024 3:30 PM EDT Office Visit [facility] [address] [place] [address] Sanjay Hawkins PA [address] [place] [address] Arrived [facility] Comment on above: Arrived Start: 07-02-2024 Covid-19 Vaccine ( season) Covid-19 Vaccine ( season) [facility] Start: 07-02-2024 Covid-19 Vaccine ( season) Covid-19 Vaccine ( season) [facility] Start: 07-02-2024 Influenza vaccination [facility] Start: 03-29-2024 End: 03-29-2024 Patient encounter procedure 03/29/2024 4:00 PM EDT Office Visit Neurology [address] [id number] Simona Carlson, GHISLAINE.PIG CONVEYOR OPERATOR [address] [place], [place] [id number] Return in about 4 months (around 03/26/2024). Neurology Comment on above: Return in about 4 mo nths (around 03/26/2024). Start: 03-03-2024 End: 03-03-2024 Patient encounter procedure 03/03/2024 12:00 PM EDT Appointment Radiology [address] [place] [address] MRI BRAIN WO IVCON Radiology Comment on above: MRI BRAIN WO IVCON Start: 11-01-2023 [facility] Start: 07-17-2023 Adult depression screening assessment DEPRESSION SCREENING [facility] Start: 07-02-2023 Covid-19 Vaccine () Covid-19 Vaccine ( season) [facility] Start: 07-02-2023 Influenza vaccination Influenza Vacc ine (#1) [facility] Start: 11-01-2022 [facility] Start: 07-02-2022 Influenza vaccination INFLUENZA (#1) [facility] Start: 11-01-2021 DEPRESSION ASSESSMENT [facility] Start: 2017 Pneumococcal Vaccine : 50+ (1 of 1 - PCV) Pneumococcal Vaccine: 50+ (1 of 1 - PCV) [facility] Start: 2017 SHINGRIX VACCINE (1 of 2) SHINGRIX VACCINE (1 of 2) [facility] Start: 2012 COLOGUARD (FIT-DNA) COLOGUARD (FIT-D NA) [facility] Start: 2012 Colonoscopy COLONOSCOPY [facility] Start: 2012 COLORECTAL CANCER SCREENING COLORECTAL CANCER SCREENING [facility] Start: [address] COLONOGRAPHY [facility] Start: 2012 DIABETES SCREEN DIABETES SCREEN [facility] Start: 2012 Diabetes Screening Diabetes Screenin g [facility] Start: 2012 FECAL OCCULT BLOOD FECAL OCCULT BLOO D [facility] Start: 2012 Lipid 1996 panel - S karyna or Plasma Lipid Screening [facility] Start: 2012 Lipid panel Lipid Screening [facility] Start: 2012 LIPID SCREEN LIPID SCREEN [facility] Start: 2012 Screening for malign ant neoplasm of colon [facility] Start: 2012 SIGMOIDOSCOPY SIGMOIDOSCOPY [facility] Start: 2007 Mammography [facility] Start: 2007 Screening for malign ant neoplasm of breast Mammogram Screening [facility] Start: 1997 HPV TESTING HPV TESTING [facility] Start: 1997 Screening for malign ant neoplasm of cervix HPV Testing [facility] Start: 1988 PAP TESTING PAP TESTING [facility] Start: 1988 Screening for malign ant neoplasm of cervix [facility] Start: 1986 Hepatitis B Vaccine (1 of 3 - 19+ 3-dose series) Hepatitis B Vaccine (1 of 3 - 19+ 3-dose series) [facility] Start: 1986 Urine microalbumin profile [facility] Start: 1985 Anxiety Screening Anxiety Screening [facility] Start: 1985 Depression Screening Depression Scre ening [facility] Start: 1985 HEPATITIS C SCREENING HEPATITIS C SC [facility] Start: 1985 Hepatitis C screening Hepatitis C [facility] Start: 1985 HIV SCREENING HIV SCREENING [facility] Start: 1985 HIV screening HIV Screening [facility] Start: 1967 COVID-19 VACCINE (#1) COVID-19 VACCI NE (#1) [facility] Start: 1967 HEPATITIS B (1 of 3 - 3-dose series) HEPATITIS B (1 of 3 - 3-dose series) [facility] Start: 1967 Hepatitis B Vaccine (1 of 3 - 3-dose series) Hepatitis B Vaccine (1 of 3 - 3-dose series) [facility] Comprehensive metabo lic 2000 panel - Serum or Plasma [facility] Comprehensive metabo lic 2000 panel - Serum or Plasma [facility] End: 02-05-2025 MR Brain WO contrast MRI BRAIN WO IVCON Radiology Routine Thunderclap headache 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 starting 01/07/2024 until 02/05/2025 [facility] Work Phone: Comment on above: 1 Occurrences starti ng 01/07/2024 until 02/05/2025 End: 02-05-2025 MRA Head vessels WO contrast MRA BRAIN WO IVCON Radiology Routine Thunderclap headache 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 starting 01/07/2024 until 02/05/2025 [facility] Work Phone: Comment on above: 1 Occurrences starti ng 01/07/2024 until 02/05/2025 End: 10-28-2023 Mri spinal canal cervical w/o contrast matrl MRI CERVICAL SPINE WO IVCON Radiology Routine Cervicalgia History of fusion of cervical spine Cervical spondylosis 1 Occurrences starting 09/28/2022 until 10/28/2023 [facility] Work Phone: Comment on above: 1 Occurrences starti ng 09/28/2022 until 10/28/2023 Patient Education Know your Meds [facility] Work Phone: Renal function 2000 panel - Serum or Plasma [facility] XR Shoulder - left Views [facility] Payers Date Payer Category Payer Unknown [id number] 2024 Self-pay [id number] 2019 Blue Cross Blue Shield 1.2.8 [id number] 2019 Unknown [employer] BLUE CARD PPO OOS [id number] 2019-Present [phone] [id number] [place] [address] PPO [id number] 1967 Unknown [id number] 2.16.840.1.902541.3.579.2.5 93 1967 Unknown [id number] 2.16.840.1.145731.3.579.2.5 93 1967 Unknown [id number] 2.16.840.1.575634.3.579.2.5 93 1967 Unknown [id number] 2.16.840.1.523968.3.579.2.5 93 1967 Unknown [id number] 2.16.840.1.980693.3.579.2.5 93 1967 Unknown [id number] 2.16.840.1.056488.3.579.2.5 93 1967 Unknown [id number] 2.16.840.1.788417.3.579.2.5 93 1967 Unknown [id number] 2.16.840.1.361124.3.579.2.5 93 1967 Unknown [id number] 2.16.840.1.796246.3.579.2.5 93 1967 Unknown [id number] 2.16.840.1.404282.3.579.2.5 93 1967 Unknown [id number] 2.16.840.1.189359.3.579.2.1 259 1967 Unknown [id number] 2.16.840.1.850844.3.579.2.1 259 1967 Unknown [id number] 2.16.840.1.948558.3.579.2.1 259 1967 Unknown [id number] 2.16.840.1.578476.3.579.2.1 259 1967 Unknown [id number] 2.16.840.1.393288.3.579.2.1 259 1967 Unknown [id number] 2.16.840.1.963088.3.579.2.1 259 1967 Unknown [id number] 2.16.840.1.659101.3.579.2.1 259 1967 Unknown [id number] 2.16.840.1.514161.3.579.2.1 259 1967 Unknown [id number] 2.16.840.1.103851.3.579.2.1 259 1967 Unknown [id number] 2.16.840.1.044983.3.579.2.1 259 1967 Unknown [id number] 2.16.840.1.701695.3.579.2.1 259 1967 Unknown [id number] 2.16.840.1.593330.3.579.2.1 259 1967 Unknown [id number] 2.16.840.1.645188.3.579.2.1 259 1967 Unknown [id number] 2.16.840.1.333308.3.579.2.1 259 1967 Unknown [id number] 2.16.840.1.780791.3.579.2.1 259 1967 Unknown [id number] 2.16.840.1.560595.3.579.2.1 259 1967 Unknown [id number] 2.16.840.1.046161.3.579.2.1 259 1967 Unknown [id number] 2.16.840.1.274342.3.579.2.1 259 1967 Unknown [id number] 2.16.840.1.726820.3.579.2.1 259 1967 Unknown [id number] 2.16.840.1.694843.3.579.2.1 259 1967 Unknown [id number] 2.16.840.1.364828.3.579.2.1 259 1967 Unknown [id number] 2.16.840.1.295792.3.579.2.1 259 1967 Unknown [id number] 2.16.840.1.589066.3.579.2.1 259 1967 Unknown [id number] 2.16.840.1.651851.3.579.2.1 259 1967 Unknown [id number] 2.16.840.1.289209.3.579.2.1 259 1967 Unknown [id number] 2.16.840.1.785202.3.579.2.1 259 1967 Unknown [id number] 2.16.840.1.047823.3.579.2.1 259 1967 Unknown [id number] 2.16.840.1.800928.3.579.2.1 259 1967 Unknown [id number] 2.16.840.1.140910.3.579.2.1 259 1967 Unknown [id number] 2.16.840.1.133393.3.579.2.1 259 1967 Unknown [id number] 2.16.840.1.282819.3.579.2.1 259 1967 Unknown [id number] 2.16.840.1.874658.3.579.2.1 259 1967 Unknown [id number] 2.16.840.1.711381.3.579.2.1 259 1967 Unknown [id number] 2.16.840.1.913076.3.579.2.1 259 1959 Blue Cross Blue Shield [id number] 2.16840.1.758972.19 Unknown [facility] [id number] Unknown [id number] 2.16.840.1.759034.3.579.2.5 31 Unknown [id number] 2.16840.1.337489.3.579.2.5 31 Unknown [id number] 2.16.840.1.085684.3.579.2.5 31 Unknown [id number] 2.16.840.1.335654.3.579.2.5 31 Unknown [id number] 2.16.840.1.266020.3.579.2.5 31 Social History Date Type Detail Facility Unknown if ever smoked [facility] Other Start: 11-16-2022 End: 11-08-2024 Sex Assigned At [facility] Start: 1965 Sex Assigned At Female [facility] Start: 01-31-2018 End: 01-10-2025 Tobacco smoking status NHIS Never smoked tobacco [facility] Start: 01-31-2018 End: 08-30-2024 Tobacco use and exposure Smokeless tobacco non-user [facility] Start: 01-29-2021 End: 04-04-2025 Alcohol intake Current drinker of alcohol (finding) [facility] Start: 10-11-2015 History SDOH Alcohol Comment Infrequent [facility] Start: 1965 Sex Assigned At Not on file [facility] Start: 07-14-2022 End: 07-24-2022 Exposure to SARS-CoV-2 (event) Not sure [facility] Start: 11-16-2022 End: 11-08-2024 History of Social function [facility] Adult Depression Screening Assessment 1 [facility] Tobacco smoking stat us [facility]IS Tobacco smoking consumption unknown [facility] Start: 11-16-2024 End: 03-05-2025 Sex Female (finding) [facility] Medical Equipment Procedure Code Equipment Code Equipment Origin al Text Equipment Identifier Dates Tendon/ligament bone anchor, bioabsorbable [id number] [facility] Start: 01-10-2025 Goals Date Patient Goal Desired Activity /State Clinical Notes 08-25-2021 to 04-04-2025 Simona Carlson, GHISLAINE.[facility] - 04/04/2025 4:00 PM EDT Note Date & Type Note Facility 04-04-2025 History of Present illness Narrative Images from the original note [...] Impression and Plan from last visit: KIRSTIN 10/04/2024 with Me. Myrtle Jones is a 59-year-old female with history significant for chronic migraine, chronic neck pain (s/p fusion x2), occipital neuralgia and HTN. At her last visit she was to continue Qulipta and Ubrelvy. Interval Headache History: A few more migraines over the past few months. [employer] is working about 80% of the time. If it doesn't help she may take an Excedrin. Headache 1 Location: right and frontal Quality/Description: throbbing Associated Symptoms: Photophobia: yes Phonophobia: yes Nausea: yes Vomiting: yes - only when severe and if migraine lasts a long time Worse with activity: yes Number of migraine headache days/month: 5 Number of headache free days/month: 25 Duration of headaches with treatment: 30 minutes Current preventive treatment: Qulipta, Propranolol, Magnesium Current abortive treatment: IguanaFixteLifeproof (works about 80% of the time), Excedrin Relieving factors: Medication, laying down, rest/sleep Aura: scotoma (Squiggly lines. Lasts about 30 minutes.) Denies any change in typical migraine/headache pattern. Prior Therapies Duration of Use Dose Reason for Discontinuation Other Therapies Nerve blocks Analgesic Butalbital/acetaminophen/caffein e (Fioricet) Hydrocodone/Acetaminophen (Vicodin, [place]) Anti-Convulsant Topiramate (Topamax, Trokendi XL, Qudexy) Anti-Depressant and Antipsychotic Amitriptyline (Elavil) Duloxetine (Cymbalta) Nortriptyline (Pamelor, Aventyl) Antiemetics Ondansetron Anti-Migraine Dihydroergotamine (DHE-45, Migranal) Rizatriptan (Maxalt) Sumatriptan (Imitrex, Sumavel) Zolmitriptan (Zomig) Blood Pressure Propranolol (Inderal) Timolol MABs Erenumab (Aimovig) Galcanezumab (Emgality) GEPANTS Ubrogepant (Ubrelvy) Rimegepant (Nurtec) Atogepant Botulinum Toxin Onabotulimum Toxin A (Botox) Other [...] Issues and questions to be addressed: Medications rimegepant (NURTEC ODT) 75 mg disintegrating tablet Take 1 dissolvable tablet by mouth at migraine onset. Take only 1 tablet per 24 hours. propranolol ER (INDERAL LA) 80 mg 24 hr capsule Take 1 capsule by mouth once daily. atogepant (QULIPTA) 60 mg tablet Take 1 [...] these with the patient: Yes, Simona Carlson APRN.PIG CONVEYOR OPERATOR HEADACHE SCORES: 03/22/2024 10/01/2024 03/28/2025 Headache Questions ER visits since last office visit: 0 0 0 Hospital stays since last office visit 0 0 0 Limited ADLs in the last month: 2 3 6 Days missed from work or school in the last month: 1 0 0 Days headache pain free in the last month: 20 27 25 Days per month with ALL of the following symptoms - decreased productivity, light sensitivity and nausea: 2 3 5 Initial improvement of headache after botox injection at last visit: Not applicable, I did not have a botox injection at my last visit Not applicable, I did not have a botox injection at my last visit Not applicable, I did not have a botox injection at my last visit PRN medication usage in the last month: 8 3 6 Patient impression of improvement since last visit: Much improved Minimally worse Much worse 03/22/2024 10/01/2024 03/28/2025 HIT-6 HIT-6 59 (Substantial impact) 62 (Severe impact) 63 (Severe impact) 03/22/2024 10/01/2024 03/28/2025 GIL - 2/7 SCORES GIL-2 Score 4 0 0 GIL-7 Score 14 03/22/2024 10/01/2024 03/28/2025 Migraine Specific QOL - Higher scores indicate better HRQL Role Function-Restrictive Transformed Score (range: 0-100) 60 80 62.86 Role Function-Preventive Transformed Score (range: 0-100) 70 80 65 Emotional Function Transformed Score (range: 0-100) 93.33 93.33 86.67 03/22/2024 10/01/2024 03/28/2025 PHQ-9 Score 10 5 4 Studies to Review: MRI Head/Brain - Last [...] Patent intracranial cerebral arterial circulation by MRA. Brick Loader: ELEAZAR Transcribe Date/Time: Mar 03 2024 1:06P [...] vertebrae with counting from the craniocervical junction. Brick Loader: ELEAZAR Transcribe Date/Time: Nov 16 2022 11:21A [...] energy, appetite, stress, exercising). Physical Examination: BP 148/82 Ht 170.2 cm (5' 7 ) Wt 68 kg (150 lb) BMI 23.49 kg/m General: Well appearing, in no acute distress, alert. HEENT: Normocephalic/atraumatic. Skin: Color, texture, turgor normal. No rashes or lesions. Musculoskeletal: No gross joint deformities. Neurological: Normal mental status. Attentive. Thought process and content unremarkable. Follows commands appropriately. Speech fluent. Stable primary gait. IMPRESSION: Migraine without aura and without status migrainosus, not intractable (primary encounter diagnosis) Migraine with aura and without status migrainosus, not intractable Myrtle Jones is a 59-year-old female with history significant for chronic migraine, chronic neck pain (s/p fusion x2), occipital neuralgia and HTN. She presents today for follow-up regarding migraine. She has seen significant improvement since starting Qulipta with reduced migraine frequency and severity. Nurtec has been effective about 80% of the time. Will consider Zavzpret next step if needed. Myrtle Jones has been previously approved for [...] (Pamelor, Aventyl) Blood Pressure Propranolol (Inderal) Timolol GEPANTS Atogepant MABs Erenumab (Aimovig) Galcanezumab (Emgality) Botulinum Toxin Onabotulimum Toxin A (Botox) The following abortive medications have been tried but require high frequency use which can lead to Medication Overuse Headache: Analgesic Butalbital/acetaminophen/caffein e (Fioricet) Hydrocodone/Acetaminophen (Vicodin, [place]) Anti-Migraine Dihydroergotamine (DHE-45, Migranal) Rizatriptan (Maxalt) Sumatriptan (Imitrex, Sumavel) Zolmitriptan (Zomig) GEPANTS Ubrogepant (Ubrelvy) Rimegepant (Nurtec) Over the Counter Medications Acetaminophen (Tylenol) Acetaminophen/Aspirin/Caffeine (Excedrin, Goody s) Ibuprofen (Advil, Motrin) Myrtle Jones has been previously approved for an Oral Calcitonin Gene-Related Peptide Receptor Antagonist (GEPANT) Rimegepant for the treatment of abortive use. The patient has demonstrated the following: Provider attests patient has had a positive clinical response: Yes Patient's quality of life and ability to perform ADLs has improved: Yes The patient has tried and failed the following : We suggest the patient continue treatment with GEPANT Rimegepant. The following preventative medications have been tried for three or more months without benefit: Anti-Convulsant Topiramate (Topamax, Trokendi XL, Qudexy) Anti-Depressant and Antipsychotic Amitriptyline (Elavil) Duloxetine (Cymbalta) Nortriptyline (Pamelor, Aventyl) Blood Pressure Propranolol (Inderal) Timolol GEPANTS Atogepant MABs Erenumab (Aimovig) Galcanezumab (Emgality) Botulinum Toxin Onabotulimum Toxin A (Botox) The following abortive medications have been tried but require high frequency use which can lead to Medication Overuse Headache: Analgesic Butalbital/acetaminophen/caffein e (Fioricet) Hydrocodone/Acetaminophen (Vicodin, [place]) Anti-Migraine Dihydroergotamine (DHE-45, Migranal) Rizatriptan (Maxalt) Sumatriptan (Imitrex, Sumavel) Zolmitriptan (Zomig) GEPANTS Ubrogepant (Ubrelvy) Rimegepant (Nurtec) Over the Counter Medications Acetaminophen (Tylenol) Acetaminophen/Aspirin/Caffeine (Excedrin, Goody s) Ibuprofen (Advil, Motrin) PLAN: HEADACHE MANAGEMENT: (You are the primary guardian of your health and headache. Keep track of all medications: This includes the reason for use, side effects and benefits.) MEDICATION TREATMENT: Abortive therapy: -Continue Nurtec as needed for migraine. -Consider Zavzpret next step if needed. Preventive therapy: -Continue Qulipta 60 mg daily. [...] side effects, adverse reactions and drug interactions. Written educational materials and patient instructions outlining all of the above were given. Follow-up: 6 months, 1 year, PRN Level of service: [facility] level 3 (20-29 min). Time spent 20 min on the day of service, which included preparing to see the patient, [id number] patient care, completing clinical documentation, obtaining and/or reviewing separately obtained history, performing a medically appropriate examination, and counseling and educating the patient/family/caregiver. Simona Carlson APRN.PIG CONVEYOR OPERATOR documented in this encounter [facility] 04-04-2025 Note HNO ID: [id number] Author: SIMONA CARLSON APRN.PIG CONVEYOR OPERATOR Service: ? Author Type: Nurse Practitioner Type: Progress Notes Filed: 04/04/2025 16:24 Note Text: [facility] - Follow up [...] Impression and Plan from last visit: KIRSTIN 10/04/2024 with Me. Myrtle Jones is a 59-year-old female with history significant for chronic migraine, chronic neck pain (s/p fusion x2), occipital neuralgia and HTN. At her last visit she was to continue Qulipta and Ubrelvy. Interval Headache History: A few more migraines over the past few months. [employer] is working about 80% of the time. If it doesn't help she may take an Excedrin. Headache 1 Location: right and frontal Quality/Description: throbbing Associated Symptoms: Photophobia: yes Phonophobia: yes Nausea: yes Vomiting: yes - only when severe and if migraine lasts a long time Worse with activity: yes Number of migraine headache days/month: 5 Number of headache free days/month: 25 Duration of headaches with treatment: 30 minutes Current preventive treatment: Qulipta, Propranolol, Magnesium Current abortive treatment: IguanaFixteLifeproof (works about 80% of the time), Excedrin Relieving factors: Medication, laying down, rest/sleep Aura: scotoma (Squiggly lines. Lasts about 30 minutes.) Denies any change in typical migraine/headache pattern. Prior Therapies Duration of Use Dose Reason for Discontinuation Other Therapies Nerve blocks Analgesic Butalbital/acetaminophen/caffein e (Fioricet) Hydrocodone/Acetaminophen (Vicodin, [place]) Anti-Convulsant Topiramate (Topamax, Trokendi XL, Qudexy) Anti-Depressant and Antipsychotic Amitriptyline (Elavil) Duloxetine (Cymbalta) Nortriptyline (Pamelor, Aventyl) Antiemetics Ondansetron Anti-Migraine Dihydroergotamine (DHE-45, Migranal) Rizatriptan (Maxalt) Sumatriptan (Imitrex, Sumavel) Zolmitriptan (Zomig) Blood Pressure Propranolol (Inderal) Timolol MABs Erenumab (Aimovig) Galcanezumab (Emgality) GEPANTS Ubrogepant (Ubrelvy) Rimegepant (Nurtec) Atogepant Botulinum Toxin Onabotulimum Toxin A (Botox) Other [...] Issues and questions to be addressed: Medications rimegepant (NURTEC ODT) 75 mg disintegrating tablet Take 1 dissolvable tablet by mouth at migraine onset. Take only 1 tablet per 24 hours. propranolol ER (INDERAL LA) 80 mg 24 hr capsule Take 1 capsule by mouth once daily. atogepant (QULIPTA) 60 mg tablet Take 1 [...] these with the patient: Yes, Simona Carlson APRN.PIG CONVEYOR OPERATOR HEADACHE SCORES: 03/22/2024 10/01/2024 03/28/2025 Headache Questions ER visits since last office visit: 0 0 0 Hospital stays since last office visit 0 0 0 Limited ADLs in the last month: 2 3 6 Days missed from work or school in the last month: 1 0 0 Days headache pain free in the last month: 20 27 25 Days per month with ALL of the following symptoms - decreased productivity, light sensitivity and nausea: 2 3 5 Initial improvement of headache after botox injection at last visit: Not applicable, I did not have a botox i (more content not included)... [facility] 03-20-2025 Evaluation note Authored March 20, 2025 3:03p m The above note written by __ _Gilbert Bill____ acting as human recorder, note dictated by _Radha .I performed the above HPI, ROS, and Examination. I formulated and dictated the treatment plan and was present for entire encounter. Anand Garcia D.O. [facility] Work Phone: [phone]) 286-660205-20-2025 History of Present illness Narrative* Kathryn Flynn, PT - 03/20/2025 10:30 AM EDT Images from the original note were not included. Physical Therapy Treatment Visit Patient Name: Myrtle Jones Today's Date: 03/20/2025 Encounter Diagnoses Name Primary? Tendinitis of left rotator cuff Yes Tear of left rotator cuff, unspecified tear extent, unspecified whether traumatic Other shoulder lesions, left shoulder Visit number: 15 Timed Code Treatment: 42 minutes Total Treatment Time: 57 minutes Time In: 10:30 AM Time Out: 11:30 AM History: Pt underwent surgery for left shoulder on WedJanuary 10. Taking pain medication and icingas was instructed. Wearing sling to support left shoulder. Greatest pain today is in left elbow. Precautions: Bruce Subjective: Pt states still having pain in left shoulder with active movement. States was a little sore following last session. Pain: 2 Objective: PT Evaluation (01/12/2025) Left SHOULDER AROM: not tested PROM: 141 degrees flexion, 93 degrees abduction, 42 degrees ER, 70 degrees IR Strength: not tested Observation: Incisions covered by bandage; able to remove 72 hours following surgery Treatment: Manual Therapy: (10 minutes) Grade II mobs to left subacromial region to decrease pain. IDN to leftproximal humerus (5 mins no charge) Therapeutic Exercise: (32 minutes supervised) Guided pt through ther and flex ex per protocol phaseIII weeks 8-12 to improve L shoulder UE functional mobility and strength; decreased intensity of exercises this date due to continue pain with AROM Therapeutic Activity: Exercises to improve dynamic activities, functional tasks, functional mobility to return to prior activity level as needed. Neuromuscular re-education: Balance Training, Muscle Facilitation, Dynamic Stability, Core Stabilization, and Blood Flow Restriction Training (BFRT) as needed. Modalities: (10 minutes ) Post session pt supine CP to L shoulder for muscle soreness Assessment: Pt has completed 15 PT sessions following left RCR performed on 01-11-24. Moderate tenderness left subacromial space. AROM left shoulder in standin degrees flexion and 142 degrees abduction. Active IR is limited to mid to upper lumbar region. Pt with significantly less pain with AROM following manual therapy. Outcome Measure: Upper Extremity Functional Index (UEFI): Rehab Diagnosis: left shoulder and elbow pain, decrease strength and ROM left shoulder Short Term Goal: To be met in 2 weeks Goal 1: Pt to be instructed in home exercise program. [facility] Goals: To be met in 10 weeks Goal 1: Pt to report independence and compliance with home program (Progressing). Goal 2: Pt to achieve 150 degrees of left shoulder flexion to assist with overhead reaching(Progressing - PROM). Goal 3: Pt to achieve 130 degrees of left shoulder abduction to assist with grooming hair(Progressing - PROM). Goal 4: Pt to achieve 4+/5 strength left shoulder in all planes to assist with functional tasks andlifting (Did not assess). Goal 5: Pt to score no less than 60/80 on UEFI indicating improved QOL (Progressing). Pt will benefit from skilled PT for 2-3x/week from 01/12/2025 to 03/23/2025 to address the above impairments. I hereby deem this POC medically necessary. Please sign below. Date: documented in this encounterResearch Psychiatric [id number] History of Present illness Narrative* Kathryn Flynn, PT - 02/27/2025 1:30 PM EDT Physical Therapy Treatment Visit Patient Name: Myrtle Jones Today's Date: 02/27/2025 Encounter Diagnoses Name Primary? Tendinitis of left rotator cuff Yes Tear of left rotator cuff, unspecified tear extent, unspecified whether traumatic Other shoulder lesions, left shoulder Visit number: 9 Timed Code Treatment: 43 minutes Total Treatment Time: 53 minutes Time In: 1:30 PM Time Out: 2:26 PM History: Pt underwent surgery for left shoulder on WedJanuary 10. Taking pain medication and icingas was instructed. Wearing sling to support left shoulder. Greatest pain today is in left elbow. Precautions: Bruce Subjective: Pt states she noticed swelling in the front of left shoulder this past weekend, not sure why. Also was having more pain along the left side of her neck. Had migraine over the weekend. Pt has follow-up on 03/05/25. Pain: 02/08 Objective: PT Evaluation (01/12/2025) Left SHOULDER AROM: not tested PROM: 141 degrees flexion, 93 degrees abduction, 42 degrees ER, 70 degrees IR Strength: not tested Observation: Incisions covered by bandage; able to remove 72 hours following surgery Treatment: Manual Therapy: (25 minutes) Delivered manual ther to left shoulder and scapula to increase ROM andmobility. Manual c-spine distraction and mobs for improved mobility and decrease pain. Thoracic mobs in prone with good eduardo. Therapeutic Exercise: (18 minutes supervised) Guided pt through ther and flex ex per protocol phaseII weeks 6-8 to improve L shoulder UE functional mobility and strength Therapeutic Activity: Exercises to improve dynamic activities, functional tasks, functional mobility to return to prior activity level as needed. Neuromuscular re-education: Balance Training, Muscle Facilitation, Dynamic Stability, Core Stabilization, and Blood Flow Restriction Training (BFRT) as needed. Modalities: (10 minutes) Post session pt supine CP to L shoulder for muscle soreness Assessment: Pt has completed 9 PT sessions following left RCR performed on 01-11-24. Pt with limitedscapular mobility with scapular elevation noted with passive shoulder flexion. Improved thoracic mobility noted following mobilizations. Will continue to progress as pt tolerates. Outcome Measure: Upper Extremity Functional Index (UEFI): Rehab Diagnosis: left shoulder and elbow pain, decrease strength and ROM left shoulder Short Term Goal: To be met in 2 weeks Goal 1: Pt to be instructed in home exercise program. [employer] Goals: To be met in 10 weeks Goal 1: Pt to report independence and compliance with home program. Goal 2: Pt to achieve 150 degrees of left shoulder flexion to assist with overhead reaching. Goal 3: Pt to achieve 130 degrees of left shoulder abduction to assist with grooming hair. Goal 4: Pt to achieve 4+/5 strength left shoulder in all planes to assist with functional tasks andlifting. Goal 5: Pt to score no less than 60/80 on UEFI indicating improved QOL. Pt will benefit from skilled PT for 2-3x/week from 01/12/2025 to 03/23/2025 to address the above impairments. I hereby deem this POC medically necessary. Please sign below. Date: documented in this encounterResearch Psychiatric [id number] History of Present illness Narrative* Kathryn Flynn PT - 02/09/2025 1:00 PM EDT Images from the original note were not included. Physical Therapy Treatment Visit Patient Name: Myrtle Jones Today's Date: 02/09/2025 Encounter Diagnoses Name Primary? Tendinitis of left rotator cuff Yes Tear of left rotator cuff, unspecified tear extent, unspecified whether traumatic Other shoulder lesions, left shoulder Visit number: 4 Timed Code Treatment Minutes: 26 minutes Total Treatment Time: 44 minutes Time In: 1304 Time Out: 1353 History: Pt underwent surgery for left shoulder on WedJanuary 10. Taking pain medication and icingas was instructed. Wearing sling to support left shoulder. Greatest pain today is in left elbow. Precautions: Bruce Subjective: Pt presents 4 weeks post op from left rotator cuff surgery. Doing stretches at home andicing 1-2/day. Has not had to take much OTC meds due to little pain. Pain: 4.5/10 Objective: PT Evaluation (01/12/2025) Left SHOULDER AROM: not tested PROM: 141 degrees flexion, 93 degrees abduction, 42 degrees ER, 70 degrees IR Strength: not tested Observation: Incisions covered by bandage; able to remove 72 hours following surgery Treatment: Manual Therapy: (26 minutes) Passive ROM, Joint mobilization, Soft Tissue Mobilization, Myofascial Release, Muscle Energy Technique, Neural Mobilization, Myofascial Cupping, Dry Needling, IASTM, and Scar mobilization as needed. Gentle GH mobs for pain relief and PROM to left shoulder in supine. Therapeutic Exercise: () Strength, Endurance, Flexibility, ROM, HEP, Neural Mobilization, Power, and Core Stability as needed. Codmans x 3 mins prior to manual therapy. Therapeutic Activity: Exercises to improve dynamic activities, functional tasks, functional mobility to return to prior activity level as needed. Neuromuscular re-education: Balance Training, Muscle Facilitation, Dynamic Stability, Core Stabilization, and Blood Flow Restriction Training (BFRT) as needed. Modalities: Heat, Ice, Electrical Stimulation, Ultrasound, Cervical Mechanical Traction, Lumbar Mechanical Traction, Iontophoresis, and Fluidotherapy as needed. CP left shoulder in supine for symptomrelief. Assessment: Pt has completed 4 PT sessions following left RCR. Pt with 117 degrees of left shoulderabduction passively this date. Min cues to relax during PROM. Will continue to progress per protocol. Outcome Measure: Upper Extremity Functional Index (UEFI): Rehab Diagnosis: left shoulder and elbow pain, decrease strength and ROM left shoulder Short Term Goal: To be met in 2 weeks Goal 1: Pt to be instructed in home exercise program. Mercury [employer]ifier Goals: To be met in 10 weeks Goal 1: Pt to report independence and compliance with home program. Goal 2: Pt to achieve 150 degrees of left shoulder flexion to assist with overhead reaching. Goal 3: Pt to achieve 130 degrees of left shoulder abduction to assist with grooming hair. Goal 4: Pt to achieve 4+/5 strength left shoulder in all planes to assist with functional tasks andlifting. Goal 5: Pt to score no less than 60/80 on UEFI indicating improved QOL. Pt will benefit from skilled PT for 2-3x/week from 01/12/2025 to 03/23/2025 to address the above impairments. I hereby deem this POC medically necessary. Please sign below. Date: documented in this encounterResearch Psychiatric [id number] History of Present illness Narrative* Kathryn Flynn, PT - 02/07/2025 2:00 PM EDT Images from the original note were not included. Physical Therapy Treatment Visit Patient Name: Myrtle Jones Today's Date: 02/07/2025 Encounter Diagnoses Name Primary? Tendinitis of left rotator cuff Yes Tear of left rotator cuff, unspecified tear extent, unspecified whether traumatic Other shoulder lesions, left shoulder Visit number: 3 Timed Code Treatment Minutes: 28 minutes Total Treatment Time: 38 minutes Time In: 1404 Time Out: 1450 History: Pt underwent surgery for left shoulder on WedJanuary 10. Taking pain medication and icingas was instructed. Wearing sling to support left shoulder. Greatest pain today is in left elbow. Precautions: Bruce Subjective: Pt presents 4 weeks post op from left rotator cuff surgery. Doing stretches at home andicing 1-2/day. Has not had to take much OTC meds due to little pain. Pain: 4.5/10 Objective: PT Evaluation (01/12/2025) Left SHOULDER AROM: not tested PROM: 141 degrees flexion, 93 degrees abduction, 42 degrees ER, 70 degrees IR Strength: not tested Observation: Incisions covered by bandage; able to remove 72 hours following surgery Treatment: Manual Therapy: (14 minutes) Passive ROM, Joint mobilization, Soft Tissue Mobilization, Myofascial Release, Muscle Energy Technique, Neural Mobilization, Myofascial Cupping, Dry Needling, IASTM, and Scar mobilization as needed. Gentle GH mobs for pain relief and PROM to left shoulder in supine. Therapeutic Exercise: (14 minutes) Strength, Endurance, Flexibility, ROM, HEP, Neural Mobilization,Power, and Core Stability as needed. Progressed and performed home program this date with good pt understanding. Therapeutic Activity: Exercises to improve dynamic activities, functional tasks, functional mobility to return to prior activity level as needed. Neuromuscular re-education: Balance Training, Muscle Facilitation, Dynamic Stability, Core Stabilization, and Blood Flow Restriction Training (BFRT) as needed. Modalities: Heat, Ice, Electrical Stimulation, Ultrasound, Cervical Mechanical Traction, Lumbar Mechanical Traction, Iontophoresis, and Fluidotherapy as needed. CP left shoulder in supine for symptomrelief. Assessment: Pt has completed 3 PT sessions following left RCR. Pt with 106 degrees of left shoulderabduction passively this date; 130 degrees passive flexion. Will continue to progress per protocol. Outcome Measure: Upper Extremity Functional Index (UEFI): Rehab Diagnosis: left shoulder and elbow pain, decrease strength and ROM left shoulder Short Term Goal: To be met in 2 weeks Goal 1: Pt to be instructed in home exercise program. Mercury Purifier Goals: To be met in 10 weeks Goal 1: Pt to report independence and compliance with home program. Goal 2: Pt to achieve 150 degrees of left shoulder flexion to assist with overhead reaching. Goal 3: Pt to achieve 130 degrees of left shoulder abduction to assist with grooming hair. Goal 4: Pt to achieve 4+/5 strength left shoulder in all planes to assist with functional tasks andlifting. Goal 5: Pt to score no less than 60/80 on UEFI indicating improved QOL. Pt will benefit from skilled PT for 2-3x/week from 01/12/2025 to 03/23/2025 to address the above impairments. I hereby deem this POC medically necessary. Please sign below. Date: documented in this encounterResearch Psychiatric [id number] Evaluation note* Author Anand Garcia [facility] Authored December 19, 2024 3:58pm The above note written by __ _Gilbert Bill____ acting as human recorder, note dictated by Dr. Stiles .I performed the above HPI, ROS, and Examination. I formulated and dictated the treatment plan and was present for entire encounter. Anand Garcia D.O. [facility] Work Phone: [phone]) 747-571802-18-2025 Evaluation note* Author Anand Garcia [facility] Authored December 19, 2024 2:58pm The above note written by __ _Gilbert Bill____ acting as human recorder, note dictated by _Radha .I performed the above HPI, ROS, and Examination. I formulated and dictated the treatment plan and was present for entire encounter. Anand Garcia D.O. [facility] Work Phone: [phone]) 350-378902-10-2025 History of Present illness Narrative* Kathryn Flynn, PT - 12/11/2024 3:30 PM EST Images from the original note were not included. Physical Therapy Treatment Visit Patient Name: Myrtle Jones Today's Date: 12/11/2024 Encounter Diagnoses Name Primary? Tear of left rotator cuff, unspecified tear extent, unspecified whether traumatic Yes Other shoulder lesions, left shoulder Visit number: 7 Timed Code Treatment Minutes: 40 minutes Total Treatment Time: 40 minutes Time In: 1528 Time Out: 1610 History: Pt states she recently had MRI on left shoulder due to pain. Pt states pain has been present since May of this year. Recently had shot in left shoulder which has helped. States she was getting a deep ache that was going down to elbow and wrist. Pt state she has been using topical creams at night to help sleep at night. 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 Precautions: Bruce Subjective: Pt states for some reason left shoulder has been hurting more lately. Still doing exercises at home but has discontinued use of weights. Will see next week and would like to hold PT until his recommendation. Follow up Dec 18 w/ Ortho. Pain: 5-6/ Objective: PT Evaluation (10/30/2024) Left SHOULDER AROM: 148 degrees flexion, 118 degrees abduction, 42 degrees ER, IR to mid thoracic region PROM: 155 degrees flexion, 170 degrees abduction, 80 degrees ER, full IR Joint play: moderate hypermobility noted left GH joint, mild hypermobility right Strength: left shoulder flexion and extension in neutral 4+/5 without pain, ER 4 to 4+/5 without pain, 4 to 4+/5 abduction with mild discomfort, 4- to 4/5 supraspinatus and IR with pain Palpation: Mild tenderness at RC insertions. Special Test: Pain with Neers at 130 degrees elevation, pain with Hawkin's Rudy test; negative Speeds testing Treatment: Education: HEP education with demonstration, Educated on Eval Findings and POC Manual Therapy: () STM/TPR to UT and shoulder (subscapularis). Passive ROM, Joint mobilization, Soft Tissue Mobilization, Myofascial Release, Muscle Energy Technique, Neural Mobilization, Myofascial Cupping, Dry Needling, IASTM, and Scar mobilization as needed. Therapeutic Exercise: (40 minutes) Strength, Endurance, Flexibility, ROM, HEP, Neural Mobilization,Power, and Core Stability as needed. Exercises per grid with progression of band exercises and homeprogram this date. Therapeutic Activity: Exercises to improve dynamic activities, functional tasks, functional mobility to return to prior activity level as needed. Neuromuscular re-education: Balance Training, Muscle Facilitation, Dynamic Stability, Core Stabilization, and Blood Flow Restriction Training (BFRT) as needed. Modalities: Heat, Ice, Electrical Stimulation, Ultrasound, Cervical Mechanical Traction, Lumbar Mechanical Traction, Iontophoresis, and Fluidotherapy as needed. Assessment: Pt has completed 7 PT sessions for left shoulder pain. AROM of left shoulder is currently: 148 degrees flexion, 125 degrees abduction, 58 degrees ER, IR to lower thoracic region. Pain with Neers at 82 degrees elevation. Strength left shoulder IR, abduction, and empty can 4/5 without pain. Hypermobility noted left GH joint with inferior and posterior glides. UEFI score: 50/80. Will continue or DC per MD recommendation at follow up on 12/18/24. Outcome Measure: Upper Extremity Functional Index (UEFI): 58/80 Rehab Diagnosis: left shoulder pain and weakness; hypermobility left GH joint Short Term Goal: To be met in 2 weeks Goal 1: Pt to be instructed in home exercise program. Mercury Purifier Goals: To be met in 10 weeks Goal 1: Pt to report independence and compliance with home program. Goal 2: Pt to achieve 160 degrees of left shoulder flexion to assist with overhead reaching. Goal 3: Pt to achieve 130 degrees of left shoulder abduction to assist with grooming hair. Goal 4: Pt to achieve 4+ to 5/5 strength left shoulder in all planes to assist with functional tasks and lifting. Goal 5: Pt to score no less than 70/80 on UEFI indicating improved QOL. Pt will benefit from skilled PT for 2-3x/week from 10/30/2024 to 01/08/2025 to address the above impairments. I hereby deem this POC medically necessary. Please sign below. Date: documented in this encounterResearch Psychiatric [id number] History of Present illness Narrative* JACOB Mcknight - 11/08/2024 3:20 PM EST Images from the original note were not included. Follow up Diagnosis: Seborrheic Dermatitis Location: Scalp, eyebrows, posterior neck Last visit: 3 months ago Symptoms: itchy Status: improvement Treatments tried and failed: Head and shoulders, Biotin shampoo, HC otc Current treatment: Ciclopirox 0.77% cream, Ciclopirox Shampoo, Fluocinonide 0.05% solution All pertinent medical history, medications, and allergies were reviewed. General Exam: alert, oriented to person, place, and time, normal affect, well appearing Unaccompanied A focused exam completed based on patient reported problems, see below: 1. Other seborrheic dermatitis Left Eyebrow, Left Upper Eyelid, Mid Parietal Scalp, Posterior Mid Neck, Right Eyebrow, Right UpperEyelid Erythema and scale. Improved since last visit Discussed that seborrheic dermatitis is a chronic condition that can be controlled but not cured. Continue ciclopirox shampoo 2-3 times weekly, leave on 5-10 min, then rinse. Continue using shampoo even when clear at least 1 day/week to prevent flares. Continue Ciclopirox cream daily when flared on eyelids and ears, hold when clear. Continue Fluocinonide solution when flared and itching on the scalp. Hold steroid when clear. Notify office if flaring despite treatment. Related Medications Ciclopirox 1 % shampoo Lather on wet hair, leave on 5 min, rinse 2-3 x week, 30 day supply ciclopirox (Loprox) 0.77 % cream Apply thin layer to affected area once a day, 30 day supply fluocinonide (Lidex) 0.05 % external solution Apply to affected areas on the scalp, up to twice a day when flared, 30 day supply Next Visit: 1 year documented in this encounterResearch Psychiatric [id number] History of Present illness Narrative* Kathryn Flynn, PT - 10/30/2024 11:00 AM EST Images from the original note were not included. Physical Therapy Evaluation Visit Patient Name: Myrtle Jones Today's Date: 10/30/2024 Encounter Diagnoses Name Primary? Tear of left rotator cuff, unspecified tear extent, unspecified whether traumatic Yes Other shoulder lesions, left shoulder Visit number: 1 Timed Code Treatment Minutes: 46 minutes Total Treatment Time: 54 minutes Time In: 1100 Time Out: 1154 History: Pt states she recently had MRI on left shoulder due to pain. Pt states pain has been present since May of this year. Recently had shot in left shoulder which has helped. States she was getting a deep ache that was going down to elbow and wrist. Pt state she has been using topical creams at night to help sleep at night. 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 Precautions: Bruce Subjective: Left shoulder Pain: 3/10 Objective: PT Evaluation (10/30/2024) Left SHOULDER AROM: 148 degrees flexion, 118 degrees abduction, 42 degrees ER, IR to mid thoracic region PROM: 155 degrees flexion, 170 degrees abduction, 80 degrees ER, full IR Joint play: moderate hypermobility noted left GH joint, mild hypermobility right Strength: left shoulder flexion and extension in neutral 4+/5 without pain, ER 4 to 4+/5 without pain, 4 to 4+/5 abduction with mild discomfort, 4- to 4/5 supraspinatus and IR with pain Palpation: Mild tenderness at RC insertions. Special Test: Pain with Neers at 130 degrees elevation, pain with Hawkin's Rudy test; negative Speeds testing Treatment: Education: HEP education with demonstration, Educated on Eval Findings and POC Manual Therapy: Passive ROM, Joint mobilization, Soft Tissue Mobilization, Myofascial Release, Muscle Energy Technique, Neural Mobilization, Myofascial Cupping, Dry Needling, IASTM, and Scar mobilization as needed. Therapeutic Exercise: (24 minutes) Strength, Endurance, Flexibility, ROM, HEP, Neural Mobilization,Power, and Core Stability as needed. Pt performed and instructed in home program this date; writteninstructions and pictures issued with good pt understanding. Therapeutic Activity: Exercises to improve dynamic activities, functional tasks, functional mobility to return to prior activity level as needed. Neuromuscular re-education: Balance Training, Muscle Facilitation, Dynamic Stability, Core Stabilization, and Blood Flow Restriction Training (BFRT) as needed. Modalities: Heat, Ice, Electrical Stimulation, Ultrasound, Cervical Mechanical Traction, Lumbar Mechanical Traction, Iontophoresis, and Fluidotherapy as needed. CP to left shoulder at end of treatment x 8 minutes Assessment: Pt is 59 y/o female with complaints of chronic left shoulder pain. Pt present with leftshoulder weakness and decrease AROM. Pt with hypermobility noted left GH joint. Pt was issued HEP and will benefit from further PT. Outcome Measure: Upper Extremity Functional Index (UEFI): 58/80 Rehab Diagnosis: left shoulder pain and weakness; hypermobility left GH joint Short Term Goal: To be met in 2 weeks Goal 1: Pt to be instructed in home exercise program. Residential Goals: To be met in 10 weeks Goal 1: Pt to report independence and compliance with home program. Goal 2: Pt to achieve 160 degrees of left shoulder flexion to assist with overhead reaching. Goal 3: Pt to achieve 130 degrees of left shoulder abduction to assist with grooming hair. Goal 4: Pt to achieve 4+ to 5/5 strength left shoulder in all planes to assist with functional tasks and lifting. Goal 5: Pt to score no less than 70/80 on UEFI indicating improved QOL. Pt will benefit from skilled PT for 2-3x/week from 10/30/2024 to 01/08/2025 to address the above impairments. I hereby deem this POC medically necessary. Please sign below. Date: documented in this encounterResearch Psychiatric [id number] Telephone encounter Note* Telephone Encounter - Jacy Cueva - 10/11/2024 11:50 AM EST Ambulatory Pharmacy Prior Authorization Note Provider Intervention Required?: No- Pharmacy completed on your behalf. Rx Plan: Other: [facility] Drug: NURTEC ODT 75 mg disintegrating tablet Cover My Meds Palafox: Done via Epic Determination: Approved Prior Authorization/Case #: [id number] Prior Authorization Expiration: 10/10/2025 Time to PA Submission in CMM: N/A Time to PA Determination in CMM: N/A Additional Information: PLEASE NOTE: Pt will need follow up office visit to review/document efficacy and tolerability of treatment before prior auth expiration. Please ensure a future follow up appt is scheduled with your patient. This will ensure no interruption in patient's ability to obtain medic ation refills. Prescriptions will now be processed through [facility] for determination of next steps. For questions relating to this submission, please contact [facility] at [phone] [facility]12-11-2024 Miscellaneous Notes* Telephone Encounter - Jacy Cueva - 10/11/2024 11:50 AM EST Ambulatory Pharmacy Prior Authorization Note Provider Intervention Required?: No- Pharmacy completed on your behalf. Rx Plan: Other: [facility] Drug: NURTEC ODT 75 mg disintegrating tablet Cover My Meds Palafox: Done via Epic Determination: Approved Prior Authorization/Case #: [id number] Prior Authorization Expiration: 10/10/2025 Time to PA Submission in CMM: N/A Time to PA Determination in CMM: N/A Additional Information: PLEASE NOTE: Pt will need follow up office visit to review/document efficacy and tolerability of treatment before prior auth expiration. Please ensure a future follow up appt is scheduled with your patient. This will ensure no interruption in patient's ability to obtain medic ation refills. Prescriptions will now be processed through [facility] for determination of next steps. For questions relating to this submission, please contact [facility] at [phone] documented in this encounterParkview Health12-04-2024 Instructions* Patient Instructions* Simona Carlson APRN.CNP - 10/04/2024 4:19 PM EST Rimegepant (Nurtec) - 75 mg ODT Take 1 tablet at onset of headache/migraine. Only take 1 tablet as single dose in 24 hour period. Potential side effects include nausea. documented in this encounterParkview Health12-04-2024 History of Present illness Narrative* Simona Carlson APRN.CNP - 10/04/2024 4:00 PM EST Images from the original note [...] Follow-up Impression and Plan from last visit: [facility] 03/29/2024 with Me. Myrtle Jones is a 59-year-old female with history significant for chronic migraine, chronic neck pain (s/p fusion x2), occipital neuralgia and HTN. At her last visit she was to continue Qulipta and Ubrelvy. Interval Headache History: She has not seen benefit with Ubrelvy. It does not work fast enough and it does not seem strong enough to knock the migraine and keep it away. Her last migraine lasted about 3 days. Headache 1 Location: right and frontal Quality/Description: throbbing Associated Symptoms: Photophobia: yes Phonophobia: yes Nausea: yes Vomiting: yes - only when severe and if migraine lasts a long time Worse with activity: yes Number of migraine headache days/month: 3 Number of headache free days/month: 27 Duration of headaches with treatment: 1 hours Current preventive treatment: Qulipta, Propranolol, Magnesium Current abortive treatment: Ubrelvy Relieving factors: Medication, laying down, rest/sleep Aura: scotoma (Squiggly lines. Lasts about 30 minutes.) Headache status since the last visit: better Prior Therapies Duration of Use Dose Reason for Discontinuation Other Therapies Nerve blocks Analgesic Butalbital/acetaminophen/caffeine (Fioricet) Hydrocodone/Acetaminophen (Vicodin, [place]) Anti-Convulsant Topiramate (Topamax, Trokendi XL, Qudexy) Anti-Depressant [...] Issues and questions to be addressed: Medications atogepant (QULIPTA) 60 mg tablet Take 1 tablet (60 mg) by mouth once daily. propranolol ER (INDERAL LA) 80 mg 24 hr capsule Take 1 capsule by mouth once daily. ubrogepant (UBRELVY) 100 mg tablet Take 1 tab at migraine onset. May repeat once in 2 hours as needed. 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 [employer]: 11/22/2023 03/22/2024 10/01/2024 Headache Questions ER visits since last office visit: 0 0 0 Hospital stays since last office visit 0 0 0 Limited ADLs in the last month: 8 2 3 Days missed from work or school in the last month: 0 1 0 Days headache pain free in the last month: 12 20 27 Days per month with ALL of the following symptoms - decreased productivity, light sensitivity and nausea: 8 2 3 Initial improvement of headache after botox injection at last visit: Not applicable, I did not havea botox injection at my last visit Not applicable, I did not have a botox injection at my last visit Not applicable, I did not have a botox injection at my last visit PRN medication usage in the last month: 18 8 3 Patient impression of improvement since last visit: Much worse Much improved Minimally worse 11/22/2023 03/22/2024 10/01/2024 HIT-6 HIT-6 63 (Severe impact) 59 (Substantial impact) 62 (Severe impact) 11/22/2023 03/22/2024 10/01/2024 GIL - 2/7 SCORES GIL-2 Score 4 4 0 GIL-7 Score 10 14 11/22/2023 03/22/2024 10/01/2024 Migraine Specific QOL - Higher scores indicate better HRQL Role Function-Restrictive Transformed Score (range: 0-100) 40 60 80 Role Function-Preventive Transformed Score (range: 0-100) 70 70 80 Emotional Function Transformed Score (range: 0-100) 93.33 93.33 93.33 11/22/2023 03/22/2024 10/01/2024 PHQ-9 Score 5 10 5 Studies to Review: MRI Head/Brain - Last [...] Patent intracranial cerebral arterial circulation by MRA. Brick Loader: ELEAZAR Transcribe Date/Time: Mar 03 2024 1:06P [...] vertebrae with counting from the craniocervical junction. Brick Loader: ELEAZAR Transcribe Date/Time: Nov 16 2022 11:21A [...] energy, appetite, stress, exercising). Physical Examination: BP 130/72 Pulse 74 Ht 170.2 cm (5' 7 ) Wt 70 kg (154 lb 5.2 oz) BMI 24.17 kg/m General: Well appearing, in no acute distress, alert. HEENT: Normocephalic/atraumatic. Skin: Color, texture, turgor normal. No rashes or lesions. Musculoskeletal: No gross joint deformities. Neurological: Normal mental status. Attentive. Thought process and content unremarkable. Follows commands appropriately. Speech fluent. Stable primary gait. IMPRESSION: Migraine without aura and without status migrainosus, not intractable (primary encounter diagnosis) Migraine with aura and without status migrainosus, not intractable Myrtle Jones is a 59-year-old female with history significant for chronic migraine, chronic neck pain (s/p fusion x2), occipital neuralgia and HTN. She presents today for follow-up regarding migraine. She has seen significant improvement since starting Qulipta with reduced migraine frequency and severity. Ubrelvy has lost effectiveness. We discussed alternative rescue treatment options and will trial Nurtec. Will consider Zavzpret next step if needed. We will request a precertification for a Calcitonin Gene-Related Peptide Receptor Antagonist (GEPANT) Rimegepant for the rescue treatment of episodic migraine. This patient meets ICHD-3 criteria for treatment of migraine with a small molecule CGRP antagonist GEPANT. The FDA has approved GEPANTS forthe treatment of migraine. Specifically, the patient has 3 headaches per month, lasting 4 or more hours/day associated with photophobia, phonophobia, nausea for three or more months. Medication overuse headache has been ruled out. The patient has tried and failed the [...] Overuse Headache: Analgesic Butalbital/acetaminophen/caffeine (Fioricet) Hydrocodone/Acetaminophen (Vicodin, [place]) Anti-Migraine Dihydroergotamine (DHE-45, Migranal) Rizatriptan (Maxalt) Sumatriptan (Imitrex, Sumavel) Zolmitriptan (Zomig) Over the Counter Medications Acetaminophen (Tylenol) Acetaminophen/Aspirin/Caffeine (Excedrin, Goody s) Ibuprofen (Advil, Motrin) Myrtle Jones has been previously approved for an Oral Calcitonin Gene-Related Peptide Receptor Antagonist (GEPANT) Atogepant for the treatment of preventative treatment. The patient has demonstrated thefollowing: Provider attests patient has had a positive [...] Overuse Headache: Analgesic Butalbital/acetaminophen/caffeine (Fioricet) Hydrocodone/Acetaminophen (Vicodin, [place]) Anti-Migraine Dihydroergotamine (DHE-45, Migranal) Rizatriptan (Maxalt) Sumatriptan (Imitrex, Sumavel) Zolmitriptan (Zomig) Over the Counter Medications Acetaminophen (Tylenol) Acetaminophen/Aspirin/Caffeine (Excedrin, Goody s) Ibuprofen (Advil, Motrin) PLAN: HEADACHE MANAGEMENT: (You are the primary guardian of your health and headache. Keep track of all medications: This includes the reason for use, side effects and benefits.) MEDICATION TREATMENT: Abortive therapy: -Trial Nurtec as needed for migraine. Preventive therapy: -Continue [...] side effects, adverse reactions and drug interactions. Written educational materials and patient instructions outlining all of the above were given. Follow-up: 6 months, PRN Level of service: Est level 3 (20-29 min). Time spent 25 min on the day of service, which included preparing to see the patient, ecmi-vt-tepa patient care, completing clinical documentation, obtaining and/or reviewing separately obtained history, performing a medically appropriate examination, counseling and educating the patient/family/caregiver, and ordering medications, tests, or procedures. Simona Carlson APRN.QUIQUE documented in this encounterParkview Health12-04-2024 NoteHNO ID: [id number] Author: SIMONA CARLSON APRN.QUIQUE Service: ? Author Type: Nurse Practitioner Type: Progress Notes Filed: 10/04/2024 16:27 Note Text: [facility] - Follow up [...] Follow-up Impression and Plan from last visit: [facility] 03/29/2024 with Me. Myrtle Jones is a 59-year-old female with history significant for chronic migraine, chronic neck pain (s/p fusion x2), occipital neuralgia and HTN. At her last visit she was to continue Qulipta and Ubrelvy. Interval Headache History: She has not seen benefit with Ubrelvy. It does not work fast enough and it does not seem strong enough to knock the migraine and keep it away. Her last migraine lasted about 3 days. Headache 1 Location: right and frontal Quality/Description: throbbing Associated Symptoms: Photophobia: yes Phonophobia: yes Nausea: yes Vomiting: yes - only when severe and if migraine lasts a long time Worse with activity: yes Number of migraine headache days/month: 3 Number of headache free days/month: 27 Duration of headaches with treatment: 1 hours Current preventive treatment: Qulipta, Propranolol, Magnesium Current abortive treatment: Ubrelvy Relieving factors: Medication, laying down, rest/sleep Aura: scotoma (Squiggly lines. Lasts about 30 minutes.) Headache status since the last visit: better Prior Therapies Duration of Use Dose Reason for Discontinuation Other Therapies Nerve blocks Analgesic Butalbital/acetaminophen/caffeine (Fioricet) Hydrocodone/Acetaminophen (Vicodin, [place]) Anti-Convulsant Topiramate (Topamax, Trokendi XL, Qudexy) Anti-Depressant [...] Issues and questions to be addressed: Medications atogepant (QULIPTA) 60 mg tablet Take 1 tablet (60 mg) by mouth once daily. propranolol ER (INDERAL LA) 80 mg 24 hr capsule Take 1 capsule by mouth once daily. ubrogepant (UBRELVY) 100 mg tablet Take 1 tab at migraine onset. May repeat once in 2 hours as needed. rosuvastatin (CRESTOR) 5 mg tablet Take 1 [...] these with the patient: Yes, Simona Carlson, GHISLAINE.PIG CONVEYOR OPERATOR HEADACHE SCORES: 11/22/2023 03/22/2024 10/01/2024 Headache Questions ER visits since last office visit: 0 0 0 Hospital stays since last office visit 0 0 0 Limited ADLs in the last month: 8 2 3 Days missed from work or school in the last month: 0 1 0 Days headache pain free in the last month: 12 20 27 Days per month with ALL of the following symptoms - decreased productivity, light sensitivity and nausea: 8 2 3 Initial improvement of headache after botox injection at last visit: Not applicable, I did not have a botox injection at my last visit Not applicable, I did not have a botox injection at my last visit Not applicable, I did not have a herve (more content not included)...[facility]11-20-2024 Evaluation note* Author Anand Garcia [facility] Authored September 20, 2024 6:41pm I performed the above HPI, R OS, and Examination. I formulated and dictated the treatment plan and was present for entire encounter. Anand Garcia D.O. [facility] Work Phone: 1(735) 457-991210-30-2024 History of Present illness Narrative* JACOB Mcknight - 08/30/2024 3:30 PM EDT Images from the original note were not included. Rash Location: Scalp, posterior neck, eyelids Duration: 4 months Quality: itchy, dougherty Modifying Factors: no hx of psoriasis or eczema Associated symptoms: red, flaky Treatments tried: Head and shoulders, Biotin shampoo, HC otc New patient All pertinent medical history, medications, and allergies were reviewed. General Exam: alert, oriented to person, place, and time, normal affect, well appearing Unaccompanied A focused exam completed based on patient reported problems, see below: 1. Other seborrheic dermatitis Left Eyebrow, Left Upper Eyelid, Mid Parietal Scalp, Posterior Mid Neck, Right Eyebrow, Right UpperEyelid Erythema and scale. Flaring today Discussed that seborrheic dermatitis is a chronic condition that can be controlled but not cured. Start ciclopirox shampoo 2-3 times weekly, leave on 5- 10 min, then rinse. Continue using shampoo evenwhen clear at least 1 day/week to prevent flares. Start Ciclopirox cream daily when flared on eyelids and ears, hold when clear. Start Fluocinonide solution when flared and itching on the scalp. Holdsteroid when clear. Notify office if flaring despite treatment. Follow up in 2 months. Related Medications Ciclopirox 1 % shampoo Lather on wet hair, leave on 5 min, rinse 2-3 x week, 30 day supply ciclopirox (Loprox) 0.77 % cream Apply thin layer to affected area once a day, 30 day supply fluocinonide (Lidex) 0.05 % external solution Apply to affected areas on the scalp, up to twice a day when flared, 30 day supply Next Visit: 2 months documented in this encounterResearch Psychiatric [id number] Telephone encounter Note* Telephone Encounter - Salma Callejas RN - 07/24/2024 8:54 AM EDT Ambulatory Pharmacy Prior Authorization Note Provider Intervention Required?: No- Pharmacy completed on your behalf. Rx Plan: Other: [facility] Drug: Qulipta 60MG tablets Cover My Meds Palafox: [id number] Determination: Approved Prior Authorization/Case #: [id number] Prior Authorization Expiration: 07/20/2025 Time to PA Submission in CMM: 15 [...] refills. Prescriptions will now be processed through [facility] for determination of next steps. For questions relating to this submission, please contact [facility] at [phone] [facility] Work Phone: [phone]) 204-808909-23-2024 Miscellaneous Notes* Telephone Encounter - Salma Callejas RN - 07/24/2024 8:54 AM EDT Ambulatory Pharmacy Prior Authorization Note Provider Intervention Required?: No- Pharmacy completed on your behalf. Rx Plan: Other: [facility] Drug: Qulipta 60MG tablets Cover My Meds Palafox: [id number] Determination: Approved Prior Authorization/Case #: [id number] Prior Authorization Expiration: 07/20/2025 Time to PA Submission in CMM: 15 [...] refills. Prescriptions will now be processed through [facility] for determination of next steps. For questions relating to this submission, please contact [facility] at [phone] * Telephone Encounter - Salma Callejas RN - 07/20/2024 4:56 PM EDT [facility] received prescription(s) for Qulipta 60MG tablets . Benefits investigation was conducted, indicating that a prior authorization is required. PA was initiated and pending review through [facility] [employer] All pertinent clinical information was submitted to insurance. PA done via: CMM- Palafox [id number] Salma Callejas RN [facility] P: , F: documented in this encounterParkview Health09-19-2024 Telephone encounter Note * Telephone Encounter - Salma Callejas RN - 07/20/2024 4:56 PM EDT [facility] received prescription(s) for Qulipta 60MG tablets . Benefits investigation was conducted, indicating that a prior authorization is required. PA was initiated and pending review through [employer] [facility] All pertinent clinical information was submitted to insurance. PA done via: [facility]- Palafox [id number] Salma Callejas RN [facility] P: , F: [facility]08-21-2024 Evaluation note* Author Anand Garcia [facility] Authored June 21, 2024 3: 31pm The above note written by __ _Gilbert Bill____ acting as human recorder, note dictated by Dr. Stiles .I performed the above HPI, ROS, and Examination. I formulated and dictated the treatment plan and was present for entire encounter. Anand Garcia D.O. [facility] Work Phone: 1(218) 152-497808-09-2024 Telephone encounter Note* Telephone Encounter - Simona Carlson APRN.CNP - 06/09/2024 11:38 AM EDT The following approved medication requests have been transmitted electronically. Requested Prescriptions Signed Prescriptions Disp Refills atogepant (QULIPTA) 60 mg tablet 30 tablet 11 Sig: Take 1 tablet (60 mg) by mouth once daily. Authorizing Provider: SIMONA CARLSON APRN.PIG CONVEYOR OPERATOR June 09, 2024 11:38 AM [facility]08-09-2024 Miscellaneous Notes* Telephone Encounter - Simona Carlson APRN.CNP - 06/09/2024 11:38 AM EDT The following approved medication requests have been transmitted electronically. Requested Prescriptions Signed Prescriptions Disp Refills atogepant (QULIPTA) 60 mg tablet 30 tablet 11 Sig: Take 1 tablet (60 mg) by mouth once daily. Authorizing Provider: SIMONA CARLSON APRN.CNP June 09, 2024 11:38 AM * Telephone Encounter - Corry Post - 06/09/2024 11:26 AM EDT Physician: Michelle Call from patient requesting refill. Please E-Scribe Last office visit 03/29/24 with Michelle in person Next office visit 10/04/24 with Michelle in person Patient PA will be expiring soon and will like to try [facility] delivery Requested Prescriptions Pending Prescriptions Disp Refills atogepant (QULIPTA) 60 mg tablet 30 tablet 11 Sig: Take 1 tablet (60 mg) by mouth once daily. Pharmacy Name: [facility] documented in this encounterParkview Health08-09-2024 Telephone encounter Note * Telephone Encounter - Corry Post - 06/09/2024 11:26 AM EDT Physician: Michelle Call from patient requesting refill. Please E-Scribe Last office visit 03/29/24 with Michelle in person Next office visit 10/04/24 with Michelle in person Patient PA will be expiring soon and will like to try [facility] delivery Requested Prescriptions Pending Prescriptions Disp Refills atogepant (QULIPTA) 60 mg tablet 30 tablet 11 Sig: Take 1 tablet (60 mg) by mouth once daily. Pharmacy Name: [facility]2024 History of Present illness Narrative* Simona Carlson APRN.PIG CONVEYOR OPERATOR - 03/29/2024 4:00 PM EDT Images from the original note were not [...] Follow-up Impression and Plan from last visit: [facility] 11/26/[address] Robles. Myrtle Jones is a 58-year-old female with history significant for chronic migraine, chronic neck pain (s/p fusion x2), occipital neuralgia and HTN. At her last visit she was to switch Aimovig to Quliptaand trial Ubrelvy. Interval Headache History: She has [...] Nerve blocks Analgesic Butalbital/acetaminophen/caffeine (Fioricet) Hydrocodone/Acetaminophen (Vicodin, [place]) Anti-Convulsant Topiramate (Topamax, Trokendi XL, Qudexy) Anti-Depressant [...] these with the patient: Yes, Simona Carlson APRN.PIG CONVEYOR OPERATOR HEADACHE SCORES: 07/14/2023 11/22/2023 03/22/2024 Headache Questions [...] Patent intracranial cerebral arterial circulation by MRA. Brick Loader: ELEAZAR Transcribe Date/Time: Mar 03 2024 1:06P [...] vertebrae with counting from the craniocervical junction. Brick Loader: PSCB Transcribe Date/Time: Nov 16 2022 11:21A Dictated [...] of preventative treatment. The patient has demonstrated thefollowing: Provider attests patient has had a positive [...] Overuse Headache: Analgesic Butalbital/acetaminophen/caffeine (Fioricet) Hydrocodone/Acetaminophen (Vicodin, [place]) Anti-Migraine Dihydroergotamine (DHE-45, Migranal) Rizatriptan (Maxalt) Sumatriptan [...] Overuse Headache: Analgesic Butalbital/acetaminophen/caffeine (Fioricet) Hydrocodone/Acetaminophen (Vicodin, [place]) Anti-Migraine Dihydroergotamine (DHE-45, Migranal) Rizatriptan (Maxalt) Sumatriptan [...] which included preparing to see the patient, iuly-ph-ebxz patient care, completing clinical documentation, obtaining and/or reviewing separately obtained history, performing a medically appropriate examination, and counseling and educating the patient/family/caregiver. Simona Carlson APRN.PIG CONVEYOR OPERATOR documented in this encounterParkview Health05-03-2024 Miscellaneous Notes* [facility] - Elo Dunaway MRI Tech - 03/03/2024 12:00 PM EDT Radiology Service Progress Note PATIENT NAME: Myrtle Jones DATE OF SERVICE: March 03, 2024 TIME: 12:42 PM PATIENT IDENTITY VERIFICATION COMPLETED USING TWO (2) IDENTIFIERS: Name and Date of confirmedby patient verbally and Name and Date of confirmed by identification band. FALL SCREENING: Has the patient had 2 falls in the last year or 1 fall with injury or currently using an Ambulatory Assistive Device (Walker, Cane, Wheelchair, Crutches, etc.)? No PATIENT GENDER DATA: Female. status: : No status: NO. PATIENT RELEVANT IMPLANT DATA REVIEWED: Yes PATIENT PRESENTS WITH AN IMPLANTABLE OR ATTACHED CALCULATION CLERK: No RADIOLOGY DEPARTMENT: MR; Exam(s) Completed: Head: Routine Brain Wilkinson of [place] MRA PERIPHERAL IV DATA: Not applicable SIGNED BY: WILBUR Jansen March 03, 2024 12:42 PM documented in this encounterParkview Health05-03-2024 Progress note* [facility] - Elo Dunaway MRI Tech - 03/03/2024 12:00 PM EDT Radiology Service Progress Note PATIENT NAME: Myrtle Jones DATE OF SERVICE: March 03, 2024 TIME: 12:42 PM PATIENT IDENTITY VERIFICATION COMPLETED USING TWO (2) IDENTIFIERS: Name and Date of confirmedby patient verbally and Name and Date of confirmed by identification band. FALL SCREENING: Has the patient had 2 falls in the last year or 1 fall with injury or currently using an Ambulatory Assistive Device (Walker, Cane, Wheelchair, Crutches, etc.)? No PATIENT GENDER DATA: Female. status: : No status: NO. PATIENT RELEVANT IMPLANT DATA REVIEWED: Yes PATIENT PRESENTS WITH AN IMPLANTABLE OR ATTACHED CALCULATION CLERK: No RADIOLOGY DEPARTMENT: MR; Exam(s) Completed: Head: Routine Brain [place] of [place] MRA PERIPHERAL IV DATA: Not applicable SIGNED BY: WILBUR Jansen March 03, 2024 12:42 PM [facility]05-02-2024 Telephone encounter Note* Telephone Encounter - Deb Jernigan - 03/02/2024 2:19 PM EDT Appointment reminder call-spoke with patient -gave directions to office [facility]05-02-2024 Miscellaneous Notes* Telephone Encounter - Deb Jernigan - 03/02/2024 2:19 PM EDT Appointment reminder call-spoke with patient -gave directions to office documented in this encounterParkview Health02-23-2024 Miscellaneous Notes* Telephone Encounter - Katia Alexander - 12/24/2023 10:39 AM EST Completed over M: MYRTLE JONES Palafox: [id number] - JACOB Drug Ubrelvy 100MG tablets Form [facility] Commercial Electronic PA Form (2016 NCP[employer]) Approvedtoday Your request was approved based on the initial information provided at the time of the coverage request submission. Please allow additional time for the final decision to be made and added to the patient's account. Katia Alexander documented in this encounterParkview Health02-23-2024 Miscellaneous Notes* Telephone Encounter - Katia Alexander - 12/24/2023 10:24 AM EST Completed PA over CMM: MYRTLE JONES Palafox: [id number] - JACOB Drug Qulipta 60MG tablets Form [facility] Commercial Electronic PA Form (2016 NCPDP) Approvedtoday Your request was approved based on the initial information provided at the time of the coverage request submission. Please allow additional time for the final decision to be made and added to the patient's account. Katia Alexander documented in this encounterParkview Health02-22-2024 Miscellaneous Notes* Telephone Encounter - Evelyne Garcia - 12/23/2023 11:12 AM EST Patient last seen on 11/26/23. documented in this encounterParkview Health12-20-2023 Miscellaneous Notes* Telephone Encounter - Salma Callejas RN - 10/20/2023 1:25 PM EST Ambulatory Pharmacy Prior Authorization Note Provider Intervention Required?: No- Pharmacy completed on your behalf. Rx Plan: Other: [facility] Drug: Aimovig 140MG/ML auto-injectors Cover My Meds Palafox: [id number] Determination: Approved Prior Authorization/Case #: [id number] Prior Authorization Expiration: 10/16/2024 Time to PA [...] refills. Prescriptions will now be processed through [facility] for determination of next steps. For questions relating to this submission, please contact [facility] at [phone] * Telephone Encounter - Salma Callejas RN - 10/13/2023 12:52 PM EST [facility] received prescription(s) for Aimovig 140MG/ML auto-injectors. Benefits investigation was conducted, indicating that a prior authorization is required. PA was initiated and pending review through [employer] All pertinent clinical information was submitted to insurance. CMM Palafox: [id number] Ordering Provider: Cresencio Robles DO Murtaugh, Alisha, RN [facility] P: , F: documented in this encounterParkview Health11-13-2023 Evaluation note* Encounter Date Diagnosis Assessment Notes Treatment Notes Treatment Clinical Notes Sep, Hypertriglyceridemia (ICD-10 - E78.1) She [...] of the liver done. Sep, Elevated liver funct ion tests (ICD-10 - R94.5) We discussed that [...] out her intake of carbs. Sep, Hyperglycemia (ICD-1 0 - R73.9) Discussed blood [...] treatments are being prescribed. Sep, Chronic kidney disea (ICD-10 - N18.9) Discussed kidney studies with [...] let Dr. Teran know about this. 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 [facility] Other 11-09-2023 Miscellaneous Notes* Telephone Encounter - Katia Alexander Tiff - 09/09/2023 2:36 PM EST Completed over CMM: MYRTLE JONES Palafox: [id number] - JACOB Drug Trudhesa 0.725MG/ACT aerosol Form [facility] Commercial Electronic PA Form (2016 [facility]) Approvedtoday Your request was approved based on the initial information provided at the time of the coverage request submission. Please allow additional time for the final decision to be made and added to the patient's account. Katia Alexander documented in this encounterParkview Health08-09-2023 Evaluation note* Encounter Date Diagnosis Assessment Notes [...] Creatinine is 1.24. EGFR is 45. Jun, extermination supervisor use of carine g (ICD-10 - Z79.899) Jun, Weight gain (ICD-10 - R63.5) We discussed her beginning an exercise program to help her cholesterol, blood sugar, blood pressure, overall health. Jun, Breast cancer screen ing (ICD-10 - Z12.31) Provided her with an order to have a bilateral mammogram done. [facility] Other 03-16-2023 Evaluation note* Encounter Date Diagnosis [...] E83.42) Advised her to resume oral magnesium. [facility] Other 02-28-2023 Evaluation note* Encounter Date Diagnosis Assessment Notes Treatment Notes Treatment Clinical Notes Dec, Degenerative disc disease, cervical (ICD-10 - M50.30) [facility] Other 01-30-2023 Evaluation note* Encounter Date Diagnosis [...] Stay hydrated with plenty of water. Nov, penitentiary use of carine g (ICD-10 - Z79.899) [...] found that it was swelling at times. [facility] Other 01-24-2023 Miscellaneous Notes* Telephone Encounter - Evelyne Garcia - 11/24/2022 9:11 AM EST Physician: Robles Call from patient requesting refill. Please E-Scribe Last office visit 07/24/2022 with Robles in person Next office visit Not scheduled. Requested Prescriptions Pending Prescriptions Disp Refills propranolol ER (INDERAL LA) 80 mg 24 hr capsule 90 capsule 3 Sig: Take 1 capsule by mouth once daily. Pharmacy Name: [facility] documented in this encounterParkview Health01-16-2023 Instructions* Patient Instructions* Anaid Mccauley APRN.CNP - 11/16/2022 1:14 PM EST Images from the original note were not included. Mychart with updates. documented in this encounterParkview Health01-16-2023 History of Present illness Narrative* Anaid Mccauley [...] nortriptyline, topomax, vicodin Physical Therapy: Online through [employer]. Started in April 2022- current Treating Physicians: [...] gregory), TONB 6. Follow up: [facility] documented in this encounterParkview Health01-16-2023 Miscellaneous Notes* [facility] - Elo Dunaway MRI Tech - 11/16/2022 10:40 AM EST Radiology Service Progress Note PATIENT NAME: Myrtle Jones DATE OF SERVICE: November 16, 2022 TIME: 10:58 AM PATIENT IDENTITY VERIFICATION COMPLETED USING TWO (2) IDENTIFIERS: Name and Date of confirmedby patient verbally. FALL SCREENING: Has the patient had 2 falls in the last year or 1 fall with injury or currently using an Ambulatory Assistive Device (Walker, Cane, Wheelchair, Crutches, etc.)? No PATIENT GENDER DATA: Female. status: : No status: NO. PATIENT RELEVANT IMPLANT DATA REVIEWED: Yes RADIOLOGY DEPARTMENT: MR; Exam(s) Completed: Spine: Cervical spine PERIPHERAL IV DATA: Not applicable SIGNED BY: Elo Dunaway bioinformatics support specialist November 16, 2022 10:58 AM documented in this encounterParkview Health01-16-2023 Progress note* [facility] - Elo Dunaway bioinformatics support specialist - 11/16/2022 10:40 AM EST Radiology Service Progress Note PATIENT NAME: Myrtle Jones DATE OF SERVICE: November 16, 2022 TIME: 10:58 AM PATIENT IDENTITY VERIFICATION COMPLETED USING TWO (2) IDENTIFIERS: Name and Date of confirmedby patient verbally. FALL SCREENING: Has the patient had 2 falls in the last year or 1 fall with injury or currently using an Ambulatory Assistive Device (Walker, Cane, Wheelchair, Crutches, etc.)? No PATIENT GENDER DATA: Female. status: : No status: NO. PATIENT RELEVANT IMPLANT DATA REVIEWED: Yes RADIOLOGY DEPARTMENT: MR; Exam(s) Completed: Spine: Cervical spine PERIPHERAL IV DATA: Not applicable SIGNED BY: Elo Dunaway bioinformatics support specialist November 16, 2022 10:58 AM [facility]01-13-2023 Miscellaneous Notes* Telephone Encounter - Lori Palmer - 11/13/2022 2:14 PM EST MRI- 11/16/2022 @ 1040am Appointment reminder call - LEFT MESSAGE - with directions to office and the # to call if they cannot keep this appointment [phone] documented in this encounterParkview Health12-08-2022 Miscellaneous Notes* Telephone Encounter - Salma Callejas [...] refills. Prescriptions will now be processed through [facility] for determination of next steps. For questions relating to this submission, please contact [facility] Pharmacy [phone] * Telephone Encounter - Salma Callejas RN - 10/06/2022 2:56 PM EST [facility] received prescription(s) for Aimovig 140MG/ML auto-injectors . Benefits investigation was conducted, indicating that a prior authorization is required. PA was initiated and pending review through [employer] All pertinent clinical information was submitted to insurance. [facility] Palafox: [id number] Ordering Provider: DO Júnior Jara Alisha, RN [facility] P: , F: documented in this encounterParkview Health11-28-2022 History of Present illness Narrative* Anaid Mccauley APRN.PIG CONVEYOR OPERATOR - 09/28/2022 5:06 PM EST Spine Care [...] nortriptyline, topomax, vicodin Physical Therapy: Online through [employer]. Started in April 2022- current Treating Physicians: [...] Level: 3 - Low documented in this encounterParkview Health11-11-2022 History of Present illness Narrative* Kayla Wakefield - 09/11/2022 3:24 PM EST POPULATION HEALTH NAVIGATION OUTREACH Action/FYI RP Outreach: Patient Declined, is going elsewhere [...] 11, 2022 3:24 PM documented in this encounterParkview Health10-26-2022 Evaluation note* Encounter Date Diagnosis Assessment Notes Treatment Notes Treatment Clinical Notes Aug, Degenerative disc disease, cervical (ICD-10 - M50.30) She voices that her neck continues to hurt, she has bad days, and then she has somewhat bad days, it is never pain free. She went and saw Anaid Mccauley from [facility] and she would like [...] Aug, Other 2:50 PM - 2:57 PM [facility] Other 09-28-2022 Evaluation note* Encounter Date Diagnosis Assessment Notes Treatment Notes Treatment Clinical Notes Jul, Degenerative disc disease, cervical (ICD-10 - M50.30) [facility] Other 09-23-2022 History of Present illness Narrative* [...] Overuse Headache: Analgesic Butalbital/acetaminophen/caffeine (Fioricet) Hydrocodone/Acetaminophen (Vicodin, [place]) Anti-Migraine Dihydroergotamine (DHE-45, Migranal) Rizatriptan (Maxalt) Sumatriptan [...] Nerve blocks Analgesic Butalbital/acetaminophen/caffeine (Fioricet) Hydrocodone/Acetaminophen (Vicodin, [place]) Anti-Convulsant Topiramate (Topamax, Trokendi XL, Qudexy) Anti-Depressant [...] fluent. Stable primary gait. Cresencio Robles DO [facility] [address] [place] [address] Level of service: Est level 2 (10-19 min). Time spent 18 min on the day of service, which included preparing to see the patient, [id number] patient care, completing clinical documentation, obtaining and/or reviewing separately obtained history, counseling and educating the patient/family/caregiver, and ordering medications, tests, or procedures. Medical Decision Making: Medical Decision Making Level: 1 - N/A cc: Anand Garcia [address] [place] [address] documented in this encounterParkview Health07-25-2022 Evaluation note* Encounter Date Diagnosis Assessment Notes [...] some research on the keto diet. May, penitentiary use of carine g (ICD-10 - Z79.899) [...] May, Weight gain (ICD-10 - R63.5) May, [place] hump (ICD-10 - E65) May, Low hemoglobin (ICD- 10 - D64.9) I did advise her that her hemoglobin has gone down from 12.7 to 12.2 to 12.0. She did have a colonoscopy in 2018. We discussed that chronic kidney disease can cause this to go down and make someone slightly anemic. This is something that we can continue to monitor. [facility] Other 04-14-2022 Evaluation note* Encounter Date Diagnosis [...] her to lower the vitamin D supplement [facility] Other 04-08-2022 Evaluation note* Encounter Date Diagnosis [...] oral anti-inflammatorie s and Tylenol. Recommended utilizing [id number] oral anti-inflammatorie s. Recommended adjusting their Tylenol [...] well.. 5. Follow up in 3 months. [facility] Other 03-30-2022 NoteThe [place], [place] NAME: MYRTLE JONES DATE OF : MEDICAL REC#: [id number] MATERIAL HANDLER 1ST SHIFT: 1602 [facility], TRANSADMIT DATE: 01/28/2022 06:21:00 ENVELOPE STUFFER DATE: 01/28/2022 22:00 DICTATING PHYSICIAN: YANNICK ESTRADA [...] Estrada DPM on 02/10/2022 03:19 PM EDT [facility] Signed and Approved by: DR YANNICK ESTRADA 02/10/2022 15:19:00[facility]03-23-2022 NotePROCEDURE: XR HIP RT 2 3V [...] Electronically authenticated by: ANAND KELLY Date: 2022-01-21 07:06[facility]03-21-2022 Evaluation note* Encounter Date Diagnosis Assessment Notes Treatment Notes Treatment Clinical Notes Dec, Foot pain, right (ICD-10 - M79.671) She is having surgery per Dr. Estrada on her right foot. She voices that she has a spur and a bunion. She will have this done at the [facility]. She voices that she can walk and [...] pain was likely coming from her back. [facility] Other 12-06-2021 NoteHOSPITAL REGULATIONS: All Positive and [...] of care. Cole Hidalgo M.D. Dictated: 09/23/2021 [id number] Transcribed: 09/23/2021 *Anand Garcia D.O.[facility] CampusComment on above:Result Comment: Electronically Signed By: Gwen CANNON, Cole Sandoval.br\Date and Time Signed: 10/06/21 13:52 [id number] Note [id number]:127[facility] 08-25-2021 NoteHOSPITAL REGULATIONS: All Positive and Important [...] symptoms become more pro (more content not included)...Ashish Thomas B. Finan CenterComment on above:Result Comment: Electronically Signed By: Gwen CANNON, Cole Silva\Date and Time Signed: 08/25/21 13:52 EDTEvaluation noteNo InformationNort [employer] Other Evaluation noteNo assessment information available [facility] Work Phone: Evaluation note* Diagnosis Migraine [...] affecting cervical region [facility] Diagnosis Spinal stenosis of cervical region- Primary Spinal stenosis in cervical region Cervicalgia History of fusion of cervical spine Arthrodesis status Cervical spondylosis Cervical spondylosis without myelopathy [facility] Diagnosis Cervicalgia- Primary History of fusion of cervical spine Arthrodesis status Cervical spondylosis Cervical spondylosis without myelopathy [facility] Diagnosis Thunderclap headache- Primary Headache 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 [facility] encounter [facility] Diagnosis Migraine with aura and without status migrainosus, not intractable- Primary Migraine with aura, without mention of intractable migraine without mention of status migrainosus Migraine without aura and without status migrainosus, not intractable Migraine without aura, without mention of intractable migraine without mention of status migrainosus [facility] Diagnosis Thunderclap headache Headache 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 [facility] encounter [facility]* Diagnosis Cervicalgia History of fusion of cervical spine Arthrodesis status Cervical spondylosis Cervical spondylosis without myelopathy [facility] Diagnosis Other seborrheic dermatitis- Primary [facility] Diagnosis Migraine without aura and without status migrainosus, not intractable- Primary Migraine without aura, without mention of intractable migraine without mention of status migrainosus Migraine with aura and without status migrainosus, not intractable Migraine with aura, without mention of intractable migraine without mention of status migrainosus documented [facility] this encounter [facility]* Diagnosis Tear of left rotator cuff, unspecified tear extent, unspecified whether traumatic- Primary Other shoulder lesions, left shoulder [facility] Diagnosis Tear of left rotator cuff, unspecified tear extent, unspecified whether traumatic- Primary Other shoulder lesions, left shoulder [facility]* Diagnosis Other seborrheic dermatitis- Primary [facility]* Diagnosis Tear of left rotator cuff, unspecified tear extent, unspecified whether traumatic- Primary Other shoulder lesions, left shoulder [facility] Diagnosis Tear of left rotator cuff, unspecified tear extent, unspecified whether traumatic- Primary Other shoulder lesions, left shoulder [facility] Diagnosis Tear of left rotator cuff, unspecified tear extent, unspecified whether traumatic- Primary Other shoulder lesions, left shoulder [facility] Diagnosis Tear of left rotator cuff, unspecified tear extent, unspecified whether traumatic- Primary Other shoulder lesions, left shoulder [facility]* Diagnosis Tendinitis of left rotator cuff- Primary Tear of left rotator cuff, unspecified tear extent, unspecified whether traumatic Other shoulder lesions, left shoulder [facility] Diagnosis Tendinitis of left rotator cuff- Primary Tear of left rotator cuff, unspecified tear extent, unspecified whether traumatic Other shoulder lesions, left shoulder [facility] Diagnosis Tendinitis of left rotator cuff- Primary Tear of left rotator cuff, unspecified tear extent, unspecified whether traumatic Other shoulder lesions, left shoulder [facility] Diagnosis Tendinitis of left rotator cuff- Primary Tear of left rotator cuff, unspecified tear extent, unspecified whether traumatic Other shoulder lesions, left shoulder [facility] Diagnosis Tendinitis of left rotator cuff- Primary Tear of left rotator cuff, unspecified tear extent, unspecified whether traumatic Other shoulder lesions, left shoulder [facility]* Diagnosis Tendinitis of left rotator cuff- Primary Tear of left rotator cuff, unspecified tear extent, unspecified whether traumatic Other shoulder lesions, left shoulder [facility]* Diagnosis Tendinitis of left rotator cuff- Primary Tear of left rotator cuff, unspecified tear extent, unspecified whether traumatic Other shoulder lesions, left shoulder [facility] Diagnosis Tendinitis of left rotator cuff- Primary Tear of left rotator cuff, unspecified tear extent, unspecified whether traumatic Other shoulder lesions, left shoulder [facility]* Diagnosis Tendinitis of left rotator cuff- Primary Tear of left rotator cuff, unspecified tear extent, unspecified whether traumatic Other shoulder lesions, left shoulder documented in this encounter [facility] HealthcareEvaluation note* Diagnosis Tendinitis of left rotator cuff- Primary Tear of left rotator cuff, unspecified tear extent, unspecified whether traumatic Other shoulder lesions, left shoulder [facility]* Diagnosis Tendinitis of left rotator cuff- Primary Tear of left rotator cuff, unspecified tear extent, unspecified whether traumatic Other shoulder lesions, left shoulder documented in this encounter [facility] HealthcareEvaluation note* Diagnosis Tendinitis of left rotator cuff- Primary Tear of left rotator cuff, unspecified tear extent, unspecified whether traumatic Other shoulder lesions, left shoulder documented in this encounter [facility] HealthcareEvaluation note* Diagnosis Migraine without aura and without status migrainosus, not intractable- Primary Migraine without aura, without mention of intractable migraine without mention of status migrainosus Migraine with aura and without status migrainosus, not intractable Migraine with aura, without mention of intractable migraine without mention of status migrainosus [facility] Diagnosis Tendinitis of left rotator cuff- Primary Tear of left rotator cuff, unspecified tear extent, unspecified whether traumatic documented in this encounter [facility]Evaluation [facility]* Diagnosis Tendinitis of left rotator cuff- Primary Tear of left rotator cuff, unspecified tear extent, unspecified whether traumatic documented in this encounter [facility] HealthcareHistory general Narrative - Reported* Type Description Date Medical History Pneumonia - 1977 Medical History Uterine Fibroids - 1997 Medical History Last Pap 2009; Dr. Phoenix Medical History Last Mammogram 2009; [facility] Medical History History of [...] 202804/12/2019 Hospitalization History See Above Surgical Hx [facility] Other Hiskhxg general Narrative - Reported* Type Description Date Medical History Pneumonia - 1977 Medical History Uterine Fibroids - 1997 Medical History Last Pap 2009; Dr. Phoenix Medical History Last Mammogram 2009; [facility] Medical History History of EKG; due to Chest Pain at Dr. Prater Medical History Fractured right wrist as a child Medical History lt elbow torn ligame nt - had surgery - [facility] - workers comp Medical History migraine headaches [...] 01/28/2022 Hospitalization History See Above Surgical Hx [facility] Other History general Narrative - Reported* Type Description Date Medical History Pneumonia - 1977 Medical History Uterine Fibroids - 1997 Medical History Last Pap 2009; Dr. Phoenix Medical History Last Mammogram 2009; [facility] Medical History History of EKG; due to Chest Pain at Dr. Prater Medical History Fractured right wrist as a child Medical History lt elbow torn ligame nt - had surgery - [facility] - workers comp Medical History migraine headaches [...] Surgical History CTS Release bilaterally- Dr. Susan baldwin1995 Surgical History neck surgery Surgical History elbow [...] surgery Hospitalization History See Above Surgical Hx [facility]N [facility] Other Reason for referral (narrative)No reason for referral information availableSelect [facility] [place] Work Phone: Reason for visit Narrative* Rehabilitation - Outpatient (Routine) - Authorized Specialty Diagnoses / Procedures Referred By Corey t Referred To Contact Physical Therapy Diagnoses Unspecified rotator cuff tear or rupture of left shoulder, not specified as traumatic Other shoulder lesions, left shoulder Procedures FL PHYSICAL THERAPY EVALUATION LOW COMPLEX 20 MINS FL OFFICE/OUTPATIENT NEW HIGH Ralph Arreaga MD [address] [place] [address] Phone: tel: fax: Kathryn Flynn PT Referral ID Status Reason Start Date Expiration Date V isits Requested Visits Authorized [id number] Authorized 10/30/2024 04/28/2025 30 30 [facility] Narrative* Rehabilitation - Outpatient (Routine) - Authorized Specialty Diagnoses / Procedures Referred By Contac t Referred To Contact Physical Therapy Diagnoses Unspecified rotator cuff tear or rupture of left shoulder, not specified as traumatic Other shoulder lesions, left shoulder Procedures FL MANUAL THERAPY TQS 1/> REGIONS EACH 15 MINUTES PHYS/OCC THERAPY SS FL OFFICE/OUTPATIENT NEW HIGH MDM 60 MINUTES FL THERAPEUTIC PX 1/> AREAS EACH 15 MIN EXERCISES Ralph Hoff MD [address] [place] [address] Phone: tel: fax: Kathryn Flynn, PT Referral ID Status Reason Start Date Expiration Date V isits Requested Visits Authorized [id number] Authorized 11/01/2024 12/06/2024 30 30 [facility] for visit Narrative* Rehabilitation - Outpatient (Routine) - Authorized Specialty Diagnoses / Procedures Referred By Contac t Referred To Contact Physical Therapy Diagnoses Unspecified rotator cuff tear or rupture of left shoulder, not specified as traumatic Other shoulder lesions, left shoulder Procedures FL MANUAL THERAPY TQS 1/> REGIONS EACH 15 MINUTES PHYS/OCC THERAPY SS FL OFFICE/OUTPATIENT NEW HIGH MDM 60 MINUTES FL THERAPEUTIC PX 1/> AREAS EACH 15 MIN EXERCISES Ralph Hoff MD [address] [place] [address] Phone: tel: fax: Kathryn Flynn, PT Referral ID Status Reason Start Date Expiration Date V isits Requested Visits Authorized [id number] Authorized 11/01/2024 10/31/2025 30 30 [facility] for visit Narrative* Rehabilitation - Outpatient (Routine) - Authorized Specialty Diagnoses / Procedures Referred By Contac t Referred To Contact Physical Therapy Diagnoses Other shoulder lesions, left shoulder Procedures FL PHYSICAL THERAPY EVALUATION LOW COMPLEX 20 MINS FL OFFICE/OUTPATIENT NEW HIGH MDM 60 MINUTES Ralph Hoff MD [address] [place] [address] Phone: tel: fax: Kathryn Flynn, PT Referral ID Status Reason Start Date Expiration Date V isits Requested Visits Authorized [id number] Authorized 01/12/2025 10/31/2025 30 24 [facility] for [facility] Narrative* Rehabilitation - Outpatient (Routine) - Authorized Specialty Diagnoses / Procedures Referred By Contac t Referred To Contact Physical Therapy Diagnoses Other shoulder lesions, left shoulder Procedures FL PHYSICAL THERAPY EVALUATION LOW COMPLEX 20 MINS FL OFFICE/OUTPATIENT NEW HIGH MDM 60 MINUTES Ralph Hoff MD Phone: tel: fax: Kathryn Flynn, PT Referral ID Status Reason Start Date Expiration Date V isits Requested Visits Authorized [id number] Authorized 01/12/2025 10/31/2025 30 24 [facility] for [facility] Narrative* Rehabilitation - Outpatient (Routine) - Authorized Specialty Diagnoses / Procedures Referred By Corey t Referred To Contact Physical Therapy Diagnoses Other shoulder lesions, left shoulder Procedures FL PHYSICAL THERAPY EVALUATION LOW COMPLEX 20 MINS FL OFFICE/OUTPATIENT NEW HIGH MDM 60 MINUTES Ralph Hoff MD Phone: tel: fax: Kathryn Flynn, PT Referral ID Status Reason Start Date Expiration Date V isits Requested Visits Authorized [id number] Authorized 01/12/2025 10/31/2025 30 24 [facility] for [facility] Narrative* Rehabilitation - Outpatient (Routine) - Closed Specialty Diagnoses / Procedures Referred By Corey t Referred To Contact Physical Therapy Diagnoses Other shoulder lesions, left shoulder Procedures FL PHYSICAL THERAPY EVALUATION LOW COMPLEX 20 MINS FL OFFICE/OUTPATIENT NEW HIGH MDM 60 MINUTES Ralph Hoff MD Phone: tel: fax: Kathryn Flynn, PT Referral ID Status Reason Start Date Expiration Date Visits Re quested Visits Authorized [id number] Closed 01/12/2025 10/31/2025 30 24 [facility] Healthcare Summary Purpose Family History Relationship Condition Age at Onset Recorded Date/T hubert brother Diabetes mellitus Unknown father Hypertension Unknown Unknown mother Unknown Malignant neoplasm of breast Unknown Hypertension Unknown Diabetes mellitus Unknown Malignant neoplasm Unknown Relationship Condition Age at Onset Recorded Date/T hubert brother Diabetes mellitus Unknown father Unknown Hypertension Unknown Renal failure Unknown mother Diabetes mellitus Unknown Unknown Malignant neoplasm of breast Unknown Advance Directives Advance Directive Response Recorded Date/ Time Advance Directives No August 03, 2017 4:04pm Advance Directive Response Recorded Date/ Time Advance Directives No August 03, 2017 3:04pm Chief Complaint and Reason for Visit Chief Complaint Screening Chief Complaint med refill Screening Reason for Visit Chronic kidney disea se, stage 3 unspecified Degenerative disc disease, cervical Hyperglycemia Hypertriglyceridemia Migraine Shoulder pain, left Weight gain Chief Complaint Admit Date Screening August 18, 2024 3 :22pm med refill September 20, 2024 2:46pm M25.512 - Pain in left shoulder October 19, 2024 8:10am CONSULT DR. GARCIA LT SHOULDER PAIN, WX October 19, 2024 8:17am RENAL 1 YR F/U November 16, 2024 3 :33pm Reason for Visit Admit Date Degenerative disc disease, cervical Nove mb2023 2:46pm Migraine September 20, 2024 2:46pm Shoulder pain, left September 20, 2024 2:46pm Left rotator cuff tear October 19 8:17am Tendonitis of left rotator cuff October 19, 2024 8:17am Atrophic kidney November 16, 2024 3 :33pm Leoncio hy kid w cr kid I-IV November 16, 2 025 3:33pm Chronic kidney disease, stage 3 unspecif ied November 16, 2024 3:33pm Hypomagnesemia November 16, 2024 3 :33pm Secondary hyperparathyroidism November 162024 3:33pm Chief Complaint Admit Date med refill September 20, 2024 2:46pm M25.512 - Pain in left shoulder October 19, 2024 8:10am CONSULT DR. RADHA BALDWIN SHOULDER PAIN, WX October 19, 2024 8:17am RENAL 1 YR F/U November 16, 2024 3 :33pm 2 months December 18, 2024 3:06pm Reason for Visit Admit Date Degenerative disc disease, cervical Nove [id number] 2:46pm Migraine September 20, 2024 2:46pm Shoulder pain, left September 20, 2024 2:46pm Left rotator cuff tear October 19 8:17am Tendonitis of left rotator cuff October 19, 2024 8:17am Atrophic kidney November 16, 2024 3 :33pm Leoncio hy kid w cr kid I-IV November 16, 2 025 3:33pm Chronic kidney disease, stage 3 unspecif ied November 16, 2024 3:33pm Hypomagnesemia November 16, 2024 3 :33pm Secondary hyperparathyroidism November 162024 3:33pm Left rotator cuff tear December 18 3:06pm Tendonitis of left rotator cuff December 18, 2024 3:06pm Chief Complaint Admit Date med refill September 20, 2024 2:46pm M25.512 - Pain in left shoulder October 19, 2024 8:10am CONSULT DR. GARCIA LT SHOULDER PAIN, WX October 19, 2024 8:17am RENAL 1 YR F/U November 16, 2024 3 :33pm 2 months December 18, 2024 3:06pm telephone/review labs/med refill Februar y 2024 2:36pm Reason for Visit Admit Date Degenerative disc disease, cervical Nove mber 2023 2:46pm Migraine September 20, 2024 2:46pm Shoulder pain, left September 20, 2024 2:46pm Left rotator cuff tear October 19 8:17am Tendonitis of left rotator cuff October 19, 2024 8:17am Atrophic kidney November 16, 2024 3 :33pm Leoncio hy kid w cr kid I-IV November 16, 2 025 3:33pm Chronic kidney disease, stage 3 unspecif ied November 16, 2024 3:33pm Hypomagnesemia November 16, 2024 3 :33pm Secondary hyperparathyroidism November 162024 3:33pm Biceps tendinitis of left shoulder Febru sai 2024 3:06pm Tendonitis of left rotator cuff December 18, 2024 3:06pm Chronic kidney disease, stage 3 unspecif ied December 19, 2024 2:36pm Degenerative disc disease, cervical Febr uary 2024 2:36pm Hyperglycemia December 19, 2024 2:36pm Hypertriglyceridemia December 19, 2024 2:36pm Left rotator cuff tear December 19 2:36pm Leukocytosis December 19, 2024 2:36pm Migraine December 19, 2024 2:36pm Viral syndrome December 19, 2024 2:36pm Chief Complaint Admit Date M25.512 - Pain in left shoulder October 19, 2024 8:10am CONSULT DR. GARCIA LT SHOULDER PAIN, WX October 19, 2024 8:17am RENAL 1 YR F/U November 16, 2024 3 :33pm 2 months December 18, 2024 3:06pm telephone/review labs/med refill y 2024 2:36pm Shoulder pain December 26, 2024 1:53pm Reason for Visit Admit Date Left rotator cuff tear October 19 8:17am Tendonitis of left rotator cuff October 19, 2024 8:17am Atrophic kidney November 16, 2024 3 :33pm Leoncio hy kid w cr kid I-IV November 16, 2 025 3:33pm Chronic kidney disease, stage 3 unspecif ied November 16, 2024 3:33pm Hypomagnesemia November 16, 2024 3 :33pm Secondary hyperparathyroidism November 162024 3:33pm Biceps tendinitis of left shoulder Febru sai 2024 3:06pm Tendonitis of left rotator cuff December 18, 2024 3:06pm Chronic kidney disease, stage 3 unspecif ied December 19, 2024 2:36pm Degenerative disc disease, cervical Febr uary 2024 2:36pm Hyperglycemia December 19, 2024 2:36pm Hypertriglyceridemia December 19, 2024 2:36pm Left rotator cuff tear December 19 2:36pm Leukocytosis December 19, 2024 2:36pm Migraine December 19, 2024 2:36pm Viral syndrome December 19, 2024 2:36pm Chief Complaint Admit Date M25.512 - Pain in left shoulder October 19, 2024 8:10am CONSULT DR. GARCIA LT SHOULDER PAIN, WX October 19, 2024 8:17am RENAL 1 YR F/U November 16, 2024 3 :33pm 2 months December 18, 2024 3:06pm telephone/review labs/med refill y 2024 2:36pm Shoulder pain December 26, 2024 1:53pm Shoulder pain January 10, 2025 9:1 0am Shoulder pain January 10, 2025 12: 30pm Chief Complaint Admit Date RENAL 1 YR F/U November 16, 2024 3 :33pm 2 months December 18, 2024 3:06pm telephone/review labs/med refill y 2024 2:36pm Shoulder pain December 26, 2024 1:53pm Shoulder pain January 10, 2025 9:1 0am Shoulder pain January 10, 2025 12: 30pm Z98.890 - Other specified postprocedural states January 22, 2025 7:28am 10-14 days post op January 22, 2025 11: 07am Reason for Visit Admit Date Atrophic kidney November 16, 2024 3 :33pm Leoncio hy kid w cr kid I-IV November 16, 2 025 3:33pm Chronic kidney disease, stage 3 unspecif ied November 16, 2024 3:33pm Hypomagnesemia November 16, 2024 3 :33pm Secondary hyperparathyroidism November 162024 3:33pm Biceps tendinitis of left shoulder Febru sai 2024 3:06pm Tendonitis of left rotator cuff December 18, 2024 3:06pm Chronic kidney disease, stage 3 unspecif ied December 19, 2024 2:36pm Degenerative disc disease, cervical Febr uary 2024 2:36pm Hyperglycemia December 19, 2024 2:36pm Hypertriglyceridemia December 19, 2024 2:36pm Left rotator cuff tear December 19 2:36pm Leukocytosis December 19, 2024 2:36pm Migraine December 19, 2024 2:36pm Viral syndrome December 19, 2024 2:36pm Biceps tendinitis of left shoulder January 22, 2025 11:07am Encounter for removal of sutures December 312024 11:07am Status post arthroscopy of left shoulder January 22, 2025 11:07am Tendonitis of left rotator cuff January 222024 11:07am Chief Complaint Admit Date 2 months December 18, 2024 3:06pm telephone/review labs/med refill Februar y 2024 2:36pm Shoulder pain December 26, 2024 1:53pm Shoulder pain January 10, 2025 9:1 0am Shoulder pain January 10, 2025 12: 30pm Z98.890 - Other specified postprocedural states January 22, 2025 7:28am 10-14 days post op January 22, 2025 11: 07am 6 WEEKS March 05, 2025 10:50a m Reason for Visit Admit Date Biceps tendinitis of left shoulder Febru sai 2024 3:06pm Tendonitis of left rotator cuff December 18, 2024 3:06pm Chronic kidney disease, stage 3 unspecif ied December 19, 2024 2:36pm Degenerative disc disease, cervical Febr uary 2024 2:36pm Hyperglycemia December 19, 2024 2:36pm Hypertriglyceridemia December 19, 2024 2:36pm Left rotator cuff tear December 19 2:36pm Leukocytosis December 19, 2024 2:36pm Migraine December 19, 2024 2:36pm Viral syndrome December 19, 2024 2:36pm Biceps tendinitis of left shoulder January 22, 2025 11:07am Encounter for removal of sutures December [id number] 11:07am Status post arthroscopy of left shoulder January 22, 2025 11:07am Tendonitis of left rotator cuff January 222024 11:07am Biceps tendinitis of left shoulder March 052024 10:50am Status post arthroscopy of left shoulder March 05, 2025 10:50am Tendonitis of left rotator cuff March 05, 2025 10:50am Chief Complaint Admit Date 6 WEEKS March 05, 2025 10:50a m med refill March 20, 2025 2:34p m 7 WKS April 23, 2025 11:0 2am 3 WEEKS May 14, 2025 8:52 am Reason for Visit Admit Date Biceps tendinitis of left shoulder March 052024 10:50am Status post arthroscopy of left shoulder March 05, 2025 10:50am Tendonitis of left rotator cuff March 05, 2025 10:50am Degenerative disc disease, cervical March 20, 2025 2:34pm Migraine March 20, 2025 2:34p m Status post arthroscopy of left shoulder March 20, 2025 2:34pm Biceps tendinitis of left shoulder April 23, 2025 11:02am Status post arthroscopy of left shoulder April 23, 2025 11:02am Tendonitis of left rotator cuff April 11:02am Trigger finger, right middle finger April 23, 2025 11:02am Biceps tendinitis of left shoulder May 14, 2025 8:52am Status post arthroscopy of left shoulder May 14, 2025 8:52am Tendonitis of left rotator cuff May 8:52am Trigger finger, right middle finger May 14, 2025 8:52am Reason for Referral Specialty Diagnoses / Procedures Referred By Corey t Referred To Contact Simona Carlson, HOUSEKEEPING ASSISTANT.PIG CONVEYOR OPERATOR [address] [id number] Referral ID Status Reason Start Date Expiration Date V isits Requested Visits Authorized [id number] Pending Review 10/04/2024 12/03/2024 1 1 Specialty Diagnoses / Procedures Referred By Contac t Referred To Contact MR IMAGING Diagnoses Thunderclap headache Dissection of vertebral artery (HCC) Procedures MRA BRAIN WO IVCON MRA, HEAD W/O CONTRAST , Cresencio P, DO [address] [place] [address] Mr Imaging [facility] Referral ID Status Reason Start Date Expiration Date Visits Requested Visits Authorized [id number] Pending Review Auto-Generat ed Referral 01/07/2024 02/05/2025 1 1 Specialty Diagnoses / Procedures Referred By Contac t Referred To Contact MR IMAGING Diagnoses Thunderclap headache Dissection of vertebral artery (HCC) Procedures MRI BRAIN WO IVCON MRI BRAIN BRAIN STEM W/O CONTRAST MATERIAL Robles Cresencio P, DO [address] [place] [address] Mr Imaging [facility] Referral ID Status Reason Start Date Expiration Date Visits Requested Visits Authorized [id number] Pending Review Auto-Generat ed Referral 01/07/2024 02/05/2025 1 1 Specialty Diagnoses / Procedures Referred By Contac t Referred To Contact MR IMAGING Diagnoses Cervicalgia History of fusion of cervical spine Cervical spondylosis Procedures MRI CERVICAL SPINE WO IVCON MRI SPINAL CANAL CERVICAL W/O CONTRAST Anaid Adams, HOUSEKEEPING ASSISTANT.PIG CONVEYOR OPERATOR [address] [place] [address] Mr Imaging Referral ID Status Reason Start Date Expiration Date Visits Requested Visits Authorized [id number] Pending Review Auto-Generat ed Referral 2 10/28/2023 1 1 Specialty Diagnoses / Procedures Referred By Contac t Referred To Contact [facility] Diagnoses Cervicalgia Procedures CONSULT TO [facility] OFFICE/OUTPATIENT [facility] HIGH MDM 60-74 MINUTES Cresencio Robles DO [address] [place] [address] Referral ID Status Reason Start Date Expiration Date Visits Requested Visits Authorized [id number] Authorized PCP Requested Referral 07/24/2022 07/24/2023 1 1 Additional Source Comments INFORMATION SOURCE (unrecogn ized section and content) DATE CREATED AUTHOR 12/26/2021 [facility] DATE CREATED AUTHOR AUTHOR'S ORGANIZ ATION 01/05/2023 [facility] DATE CREATED AUTHOR AUTHOR'S ORGANIZ ATION 03/04/2024 [facility] DATE CREATED AUTHOR AUTHOR'S ORGANIZ ATION 02/17/2025 [facility] DATE CREATED AUTHOR AUTHOR'S ORGANIZ ATION 04/05/2025 [facility] DATE CREATED AUTHOR AUTHOR'S ORGANIZ ATION 04/19/2025 [facility] EPIC REASON FOR VISIT (unrecogniz ed section and content) Reason Comments Follow Up Migraines Reason Comments Neck Pain Reason Comments Insurance Authorization Aimovig 140MG/ML auto-injectors Reason Comments appointment instructions MRI- 11/16/2022 @ 1040amAppointment reminder call - LEFT MESSAGE - with directions to office and the # to call if they cannot keep this [phone] Reason Comments Follow Up Neck and shoulder pa in Reason Onset Date Comments Refill Request 11/23/2022 Reason Comments Insurance Authorization TRUDHESA Reason Comments Insurance Authorization [facility] Reason Comments Insurance Authorization [facility] Reason Comments Follow Up Reason Onset Date Comments Refill Request 06/09/2024 Specialty Diagnoses / Procedures Referred By Contac t Referred To Contact MR IMAGING Diagnoses Thunderclap headache Dissection of vertebral artery (HCC) Procedures MRI BRAIN WO IVCON MRI BRAIN BRAIN STEM W/O CONTRAST MATERIAL Cresencio Robles DO [address] [place] [id number] Mr Imaging [place] [facility] Referral ID Status Reason Start Date Expiration Date V isits Requested Visits Authorized [id number] Closed Auto-Generate d Referral 03/03/2024 03/03/2024 1 1 Reason Comments Insurance Authorization Qulipta 60MG tablets Specialty Diagnoses / Procedures Referred By Contac t Referred To Contact MR IMAGING Diagnoses Cervicalgia History of fusion of cervical spine Cervical spondylosis Procedures MRI CERVICAL SPINE WO IVCON MRI SPINAL CANAL CERVICAL W/O CONTRAST Anaid Adams, HOUSEKEEPING ASSISTANT.PIG CONVEYOR OPERATOR [address] [place] [address] Mr Imaging [address] [address] Referral ID Status Reason Start Date Expiration Date V isits Requested Visits Authorized [id number] Closed Auto-Generate d Referral 11/03/2022 12/01/2022 1 1 Reason Comments Rash Reason Comments Follow Up Reason Comments Insurance Authorization NURTEC ODT 75 mg disintegrating tablet NURTEC ODT 75 mg disintegrating tablet Care Teams (unrecognized sec tion and content) Team Status: Active Member Role Status Dates Anand Garcia DO Primary Care Provider Active Team Status: Inactive Member Role Status Tim Garcia DO Primary Care Provide r, Attending Provider Active Start: August 18, 2024 End: August 18, 2024 Team Status: Inactive Member Role Status Tim Garcia DO Primary Care Provide r, Attending Provider Active Start: September 20, 2024 End: September 20, 2024 Team Status: Inactive Member Role Status Tim Garcia DO Primary Care Provider Active S tart: October 19, 2024 End: October 19, 2024 Ralph Hoff DO Attending Provider Active St art: October 19, 2024 End: October 19, 2024 Team Status: Active Member Role Status Tim Garcia DO Primary Care Provide r, Attending Provider Active Start: October 21, 2024 Team Status: Inactive Member Role Status Tim Garcia DO Primary Care Provider Active S tart: November 16, 2024 End: November 16, 2024 Marianne Plummer MD Attending Provider Active Start : November 16, 2024 End: November 16, 2024 Team Status: Active Member Role Status Tim Garcia DO Primary Care Provide r, Attending Provider Active Start: June 03, 2024 Team Status: Inactive Member Role Status Dates Anand Garcia DO Primary Care Provide r, Attending Provider Active Start: June 21, 2024 End: June 21, 2024 Team Status: Inactive Member Role Status Dates Anand Garcia DO Primary Care Provider, Attending Pro vider Active French Tutor Relationship Specialty Start Date End Date Anand Garcia, DO [address] [place] [address] PCP - [facility] 07/02/15 French Tutor Relationship Specialty Start Date End Date Anand Garcia, DO [address] [place] [address] PCP - [facility] 07/02/15 French Tutor Relationship Specialty Start Date End Date Anand Garcia, DO [address] [place] [address] PCP - [facility] 07/02/15 French Tutor Relationship Specialty Start Date End Date Anand Garcia, DO [address] [place] [address] PCP - [facility] 07/02/15 French Tutor Relationship Specialty Start Date End Date Anand Garcia, DO [address] [place] [address] PCP - [facility] 07/02/15 French Tutor Relationship Specialty Start Date End Date Anand Garcia, DO [address] [place] [address] PCP - [facility] 07/02/15 French Tutor Relationship Specialty Start Date End Date Anand Garcia DO [address] [place] [id number] PCP - [facility] 07/02/15 French Tutor Relationship Specialty Start Date End Date Anand Garcia, DO [address] [place] [id number] PCP - [facility] 07/02/15 French Tutor Relationship Specialty Start Date End Date Anand Garcia, DO [address] [place] [address] PCP - General [facility] Medicine 07/02/15 French Tutor Relationship Specialty Start Date End Date Anand Garcia, DO [address] [place] [phone] PCP - [facility] 07/02/15 French Tutor Relationship Specialty Start Date End Date Anand Garcia, DO [address] [place] [id number] PCP - [facility] 07/02/15 French Tutor Relationship Specialty Start Date End Date Anand Garcia, DO [address] [place] [phone] PCP - [facility] 07/02/15 French Tutor Relationship Specialty Start Date End Date Anand Garcia, DO [address] [place] [phone] PCP - General [facility] Medicine 07/02/15 French Tutor Relationship Specialty Start Date End Date Anand Garcia, DO [address] [place] [phone] PCP - [facility] 07/02/15 French Tutor Relationship Specialty Start Date End Date Anand Garcia, DO [address] [place] [phone] PCP - General Family Medicine 07/02/15 French Tutor Relationship Specialty Start Date End Date Anand Garcia DO [address] [place] [phone] PCP - General Family Medicine 07/02/15 Team Status: Inactive Member Role Status Tim Garcia DO Primary Care Provider Active S tart: December 18, 2024 End: December 18, 2024 Ralph Hoff , DO Attending Provider Active St art: December 18, 2024 End: December 18, 2024 Team Status: Inactive Member Role Status Tim Garcia DO Primary Care Provide r, Attending Provider Active Start: December 19, 2024 End: December 19, 2024 Team Status: Inactive Member Role Status Tim Garcia DO Primary Care Provider Active S tart: December 26, 2024 End: December 26, 2024 Ralph Hoff DO Attending Provider Active St art: December 26, 2024 End: December 26, 2024 Team Status: Inactive Member Role Status Tim Garcia DO Primary Care Provider Active S tart: January 10, 2025 End: January 10, 2025 Ralph Hoff DO Attending Provider Active St art: January 10, 2025 End: January 10, 2025 Team Status: Active Member Role Status Tim Garcia DO Primary Care Provider Active S tart: January 10, 2025 Ralph Hoff DO Attending Provider, Other Provider Active Start: January 10, 2025 Team Status: Active Member Role Status Tim Garcia DO Primary Care Provider Active S tart: January 22, 2025 Ralph Hoff DO Attending Provider Active St art: January 22, 2025 Team Status: Inactive Member Role Status iTm Garcia DO Primary Care Provider Active S tart: January 22, 2025 End: January 22, 2025 Ralph Hoff DO Attending Provider Active St art: January 22, 2025 End: January 22, 2025 Team Status: Inactive Member Role Status Tim Garcia DO Primary Care Provider Active S tart: March 05, 2025 End: March 05, 2025 Ralph Hoff DO Attending Provider Active St art: March 05, 2025 End: March 05, 2025 French Tutor Relationship Specialty Start Date End Date Anand Garcia DO [address] [place] [address] PCP - General Family Medicine 07/02/15 Team Status: Inactive Member Role Status Dates Anand Garcia DO Primary Care Provider Active S tart: March 20, 2025 End: March 20, 2025 Anand Garcia DO Attending Provider Active Star t: March 20, 2025 End: March 20, 2025 Team Status: Inactive Member Role Status Dates Anand Garcia DO Primary Care Provider Active S tart: April 23, 2025 End: April 23, 2025 Ralph Hoff DO Attending Provider Active St art: April 23, 2025 End: April 23, 2025 Team Status: Inactive Member Role Status Dates Anand Garcia DO Primary Care Provider Active S tart: May 14, 2025 End: May 14, 2025 Ralph Hoff DO Attending Provider Active St art: May 14, 2025 End: May 14, 2025 Goals (unrecognized section and content) Goals may be documented in a n alternate section Source Comments (unrecognize d section and content) In the event this informatio n is protected by the Federal Confidentiality of Alcohol and Drug Abuse Patient Records regulations: The Federal rules restrict any use of the information to criminally investigate or prosecute any alcohol or drug abuse patient.[facility] HealthIn the event this information is protected by the Federal Confidentiality of Alcohol and Drug Abuse Patient Records regulations: The Federal rules restrict any use of the information to criminally investigate or prosecute any alcohol or drug abuse patient.[facility] HealthIn the event this information is protected by the Federal Confidentiality of Alcohol and Drug Abuse Patient Records regulations: The Federal rules restrict any use of the information to criminally investigate or prosecute any alcohol or drug abuse patient.[facility] HealthIn the event this information is protected by the Federal Confidentiality of Alcohol and Drug Abuse Patient Records regulations: The Federal rules restrict any use of the information to criminally investigate or prosecute any alcohol or drug abuse patient.[facility] HealthIn the event this information is protected by the Federal Confidentiality of Alcohol and Drug Abuse Patient Records regulations: The Federal rules restrict any use of the information to criminally investigate or prosecute any alcohol or drug abuse patient.[facility] HealthIn the event this information is protected by the Federal Confidentiality of Alcohol and Drug Abuse Patient Records regulations: The Federal rules restrict any use of the information to criminally investigate or prosecute any alcohol or drug abuse patient.[facility] HealthIn the event this information is protected by the Federal Confidentiality of Alcohol and Drug Abuse Patient Records regulations: The Federal rules restrict any use of the information to criminally investigate or prosecute any alcohol or drug abuse patient.[facility] HealthIn the event this information is protected by the Federal Confidentiality of Alcohol and Drug Abuse Patient Records regulations: The Federal rules restrict any use of the information to criminally investigate or prosecute any alcohol or drug abuse patient.[facility] HealthIn the event this information is protected by the Federal Confidentiality of Alcohol and Drug Abuse Patient Records regulations: The Federal rules restrict any use of the information to criminally investigate or prosecute any alcohol or drug abuse patient.[facility] HealthIn the event this information is protected by the Federal Confidentiality of Alcohol and Drug Abuse Patient Records regulations: The Federal rules restrict any use of the information to criminally investigate or prosecute any alcohol or drug abuse patient.[facility] HealthIn the event this information is protected by the Federal Confidentiality of Alcohol and Drug Abuse Patient Records regulations: The Federal rules restrict any use of the information to criminally investigate or prosecute any alcohol or drug abuse patient.[facility] HealthIn the event this information is protected by the Federal Confidentiality of Alcohol and Drug Abuse Patient Records regulations: The Federal rules restrict any use of the information to criminally investigate or prosecute any alcohol or drug abuse patient.[facility] HealthIn the event this information is protected by the Federal Confidentiality of Alcohol and Drug Abuse Patient Records regulations: The Federal rules restrict any use of the information to criminally investigate or prosecute any alcohol or drug abuse patient.[facility] HealthIn the event this information is protected by the Federal Confidentiality of Alcohol and Drug Abuse Patient Records regulations: The Federal rules restrict any use of the information to criminally investigate or prosecute any alcohol or drug abuse patient.[facility] HealthIn the event this information is protected by the Federal Confidentiality of Alcohol and Drug Abuse Patient Records regulations: The Federal rules restrict any use of the information to criminally investigate or prosecute any alcohol or drug abuse patient.[facility] HealthIn the event this information is protected by the Federal Confidentiality of Alcohol and Drug Abuse Patient Records regulations: The Federal rules restrict any use of the information to criminally investigate or prosecute any alcohol or drug abuse patient.[facility] HealthIn the event this information is protected by the Federal Confidentiality of Alcohol and Drug Abuse Patient Records regulations: The Federal rules restrict any use of the information to criminally investigate or prosecute any alcohol or drug abuse patient.[facility] HealthIn the event this information is protected by the Federal Confidentiality of Alcohol and Drug Abuse Patient Records regulations: The Federal rules restrict any use of the information to criminally investigate or prosecute any alcohol or drug abuse patient.[facility] HealthIn the event this information is protected by the Federal Confidentiality of Alcohol and Drug Abuse Patient Records regulations: The Federal rules restrict any use of the information to criminally investigate or prosecute any alcohol or drug abuse patient.[facility] HealthIn the event this information is protected by the Federal Confidentiality of Alcohol and Drug Abuse Patient Records regulations: The Federal rules restrict any use of the information to criminally investigate or prosecute any alcohol or drug abuse patient.[facility] HealthIn the event this information is protected by the Federal Confidentiality of Alcohol and Drug Abuse Patient Records regulations: The Federal rules restrict any use of the information to criminally investigate or prosecute any alcohol or drug abuse patient.[facility] HealthIn the event this information is protected by the Federal Confidentiality of Alcohol and Drug Abuse Patient Records regulations: The Federal rules restrict any use of the information to criminally investigate or prosecute any alcohol or drug abuse patient.[facility] HealthIn the event this information is protected by the Federal Confidentiality of Alcohol and Drug Abuse Patient Records regulations: The Federal rules restrict any use of the information to criminally investigate or prosecute any alcohol or drug abuse patient.[facility] HealthIn the event this information is protected by the Federal Confidentiality of Alcohol and Drug Abuse Patient Records regulations: The Federal rules restrict any use of the information to criminally investigate or prosecute any alcohol or drug abuse patient.[facility] FOR RECORDS PERTAINING TO PATIENTS WHO ARE [...] BE BASED ON THE PRIMARY CLINICAL RECORDS. [facility] [employer] [facility]. provides no warranty or guarantee of the accuracy or completeness of information in this document.
--- OUTSIDE RECORDS SUMMARY | 2025-06-16 08:23 | XMS_ITS | Encounter Summary ---
Author Organization [facility] Address [address] [place] [address] Care Team Providers Care Dj Instructor Name Role Phone Romie Rdz DO Primary Care Provider [phone] Source Comments In the event this information is protected by the Federal Confidentiality of Alcohol and Drug AbusePatient Records regulations: The Federal rules restrict any use of the information to criminally investigate or prosecute any alcohol or drug abuse patient.[facility] Reason for Visit * Reason Onset Date Comments Refill Request 09/07/2024 Encounter Details Date Type Department Care Team (Late st Contact Info) Description 09/07/2024 Refill Neurology [address] [place] [address] Rodrick Chatterjee, DO [address] [place] [address] Refill Request Social History Tobacco Use Types Packs/Day [...] is lower risk 4 03/29/2024 Data from: https://www.neighborhoodatlas.medicine.[facility].edu/. Last address used for calculation [address] [place] [address] [address] 03/29/2024 Comments No Sex and Gender Information Value Date Recorded Sex Assigned at Not on file Legal Sex Female 9:34 AM EDT Gender Identity Not on file Sexual Orientation Not on file documented as of this encounter Plan of Treatment Upcoming Encounters Date Type Department Care Team (Late st Contact Info) Description 10/10/2025 1:00 PM EST Office Visit Neurology [address] [facility] [address] [place], [place] [address] Simona Martinez APRN.FACILITIES OFFICER [address] [place] [address] FOLLOW UP 6 MONTHS documented as of this encounter Visit Diagnoses Not on filedocumented in this encounter Care Teams Dj Instructor Relationship Specialty Start Date End Date Romie Rdz DO [address] [place] [address] PCP - General Family Medicine 07/02/15 documented as of this encounter
--- OUTSIDE RECORDS SUMMARY | 2025-06-16 08:23 | XMS_ITS | Encounter Summary ---
Author Organization [facility] Address [address] [facility], [address] [place] [address] Care Team Providers Care Anesthesia Director Name Role Phone Romie Rdz DO Primary Care Provider Unavail able Reason for Visit * Reason Comments Medication Refill Encounter Details Date Type Department Care Team (Late st Contact Info) Description 08/04/2020 Refill [facility] [address], [address] [place] [address] Herve Pires MD Medication Refill Social History Tobacco Use Types Packs/Day Years Used Date Smoking Tobacco: Never Assessed Smokeless Tobacco: Never Comments Unknown Sex and Gender Information Value Date Recorded Sex Assigned at Not on file Legal Sex Female 2:42 PM EST Gender Identity Not on file Sexual Orientation Not on file documented as of this encounter Plan of Treatment Not on file documented as of this encounter Visit Diagnoses Not on filedocumented in this encounter Care Teams Anesthesia Director Relationship Specialty Start Date End Date Romie Rdz DO PCP - General Family Medicine 06/28/20 documented as of this encounter
--- OUTSIDE RECORDS SUMMARY | 2025-06-16 08:23 | XMS_ITS | Encounter Summary ---
Author Organization [facility] Address [address] [place] [address] Care Team Providers Care Farm Contractor Name Role Phone Romie Rdz DO Primary Care Provider [phone] Source Comments In the event this information is protected by the Federal Confidentiality of Alcohol and Drug AbusePatient Records regulations: The Federal rules restrict any use of the information to criminally investigate or prosecute any alcohol or drug abuse patient.[facility] Encounter Details Date Type Department Care Team (Late st Contact Info) Description 11/10/2015 Get Medical Advice Neurology [address] [place] [address] Rodrick Chatterjee, DO [address] [place] [address] RE: Non-Urgent Medical Question Social History [...] 1:00 PM EST Office Visit Neurology [address] [place] [address] Simona Martinez APRN.DESKTOP ENGINEER [address] [place] [address] FOLLOW UP 6 MONTHS documented as of this encounter Visit Diagnoses Not on filedocumented in this encounter Care Teams Farm Contractor Relationship Specialty Start Date End Date Romie Rdz DO [address] [place] [address] PCP - General Family Medicine 07/02/15 documented as of this encounter
--- OUTSIDE RECORDS SUMMARY | 2025-06-16 08:23 | XMS_ITS | Encounter Summary ---
Author Organization [facility] Address [address] [place] [address] Care Team Providers Care Spray Drier Operator Name Role Phone Romie Rdz DO Primary Care Provider [phone] Source Comments In the event this information is protected by the Federal Confidentiality of Alcohol and Drug AbusePatient Records regulations: The Federal rules restrict any use of the information to criminally investigate or prosecute any alcohol or drug abuse patient.[facility] Encounter Details Date Type Department Care Team (Late st Contact Info) Description 01/29/2017 Get Medical Advice Neurology [address] [place] [address] Rodrick Chatterjee, DO [address] [place] [address] RE: Visit Follow Up Question Social [...] 1:00 PM EST Office Visit Neurology [address] [place] [address] Simona Martinez APRN.SALT REFINER [address] [place] [address] FOLLOW UP 6 MONTHS documented as of this encounter Visit Diagnoses Not on filedocumented in this encounter Care Teams Spray Drier Operator Relationship Specialty Start Date End Date Romie Rdz DO [address] [place] [address] PCP - General Family Medicine 07/02/15 documented as of this encounter
--- OUTSIDE RECORDS SUMMARY | 2025-06-16 08:23 | XMS_ITS | Encounter Summary ---
Author Organization [facility] Address [address] [place] [address] Care Team Providers Care Waxing Machine Operator Name Role Phone Romie Rdz DO Primary Care Provider [phone] Source Comments In the event this information is protected by the Federal Confidentiality of Alcohol and Drug AbusePatient Records regulations: The Federal rules restrict any use of the information to criminally investigate or prosecute any alcohol or drug abuse patient.[facility] Encounter Details Date Type Department Care Team (Late st Contact Info) Description 04/20/2018 Get Medical Advice Neurology [address] [place] [id number] Rodrick Chatterjee DO [address] [place] [address] RE: Upcoming Appointment Question Social History [...] PM EST Office Visit Neurology [address] [address] Simona Martinez APRN.LOSS PREVENTION CONSULTANT [address] [place] [address] FOLLOW UP 6 MONTHS documented as of this encounter Visit Diagnoses Not on filedocumented in this encounter Care Teams Waxing Machine Operator Relationship Specialty Start Date End Date Romie Rdz DO [address] [place] [address] PCP - General Family Medicine 07/02/15 documented as of this encounter
--- OUTSIDE RECORDS SUMMARY | 2025-06-16 08:23 | XMS_ITS | Encounter Summary ---
Author Organization [facility] Address [address] [place] [address] Care Team Providers Care Parachute Repairer Name Role Phone Romie Rdz DO Primary Care Provider [phone] Source Comments In the event this information is protected by the Federal Confidentiality of Alcohol and Drug AbusePatient Records regulations: The Federal rules restrict any use of the information to criminally investigate or prosecute any alcohol or drug abuse patient.[facility] Encounter Details Date Type Department Care Team (Late st Contact Info) Description 05/22/[address] [facility] [place] [id number] Simona Martinez APRN.HOGSHEAD BUILDER [address] [place] [address] Appointment Request Social History Tobacco Use Types Packs/Day Years Used Date Smoking Tobacco: Never Smokeless Tobacco: Never Alcohol Use Standard Drinks/Week Comments Yes 0 (1 standard drink = 0.6 oz pur e alcohol) Infrequent PHQ-2 Answer Date Recorded PHQ-2 score 2 03/22/2024 Area Deprivation Index Answer Date Giacomo rded National Score (1-100), lower number is lower ri 63 03/29/2024 State Score (1-10), lower number is lower risk 4 03/29/2024 Data from: https://www.neighborhoodatlas.medicine.[facility].edu/. Last address used for calculation [address] [place] [address] [address] 03/29/2024 Comments No Sex and Gender Information Value Date Recorded Sex Assigned at Not on file Legal Sex Female 9:34 AM EDT Gender Identity Not on file Sexual Orientation Not on file documented as of this encounter Plan of Treatment Upcoming Encounters Date Type Department Care Team (Late st Contact Info) Description 10/10/2025 1:00 PM EST Office Visit Neurology [address] [address] Simona Martinez APRN.HOGSHEAD BUILDER [address] [place] [address] FOLLOW UP 6 MONTHS documented as of this encounter Visit Diagnoses Not on filedocumented in this encounter Care Teams Parachute Repairer Relationship Specialty Start Date End Date Romie Rdz DO [address] [place] [address] PCP - General Family Medicine 07/02/15 documented as of this encounter
--- OUTSIDE RECORDS SUMMARY | 2025-06-16 08:23 | XMS_ITS | Clinical Summary ---
Author Organization [facility] Address [address] [place] [address] Care Team Providers Care Statistical Programmer Analyst Name Role Phone Unavailable Primary Care Provider Unavailabl e Allergies Active Allergy Reactions Criticality Noted Date Comments Nsaids Unknown 06/21/2024 Other Reaction(s): Kidney disease Other Reaction(s): kidney Dz Sulfamethoxazole 06/21/2024 Other Reaction(s): kidney Dz Sulfamethoxazole-Trimethoprim Unknown 2019 Other Reaction(s): Kidney disease Topiramate Unknown 05/09/2018 Trimethoprim 06/21/2024 Other Reaction(s): kidney Dz Medications ascorbic acid (Vitamin C) 500 mg/mL oral liquid Daily 03/22/2024 Active ondansetron (Zofran) 1 MG split tablet Take 4 mg by mouth Active propranolol (Inderal) 80 MG tablet Daily 12/16/2023 Active rosuvastatin (Crestor) 5 MG tablet .COMPLEX 06/13/2024 Active Atogepant (Qulipta) 10 MG tablet Take by mouth Active Ciclopirox 1 % shampooIndicati ons:Other seborrheic dermatitis Lather on wet hair, leave on 5 min, rinse 2-3 x week, 30 day supply 120 mL 11 08/30/2024 Active ciclopirox (Loprox) 0.77 % creamIndication s:Other seborrheic dermatitis Apply thin layer to affected area once a day, 30 day supply 30 g 11 08/30/2024 Active fluocinonide (Lidex) 0.05 % external solutionIndicat ions:Other seborrheic dermatitis Apply to affected areas on the scalp, up to twice a day when flared, 30 day supply 60 mL 11 08/30/2024 Active Active Problems No known active problems Encounters Date Type Department Care Team Description 04/19/2025 11:00 AM EDT Treatment [facility] [address] [place] [address] Edith Lombardo, AUDIO TECHNICIAN Tendinitis of left rotator cuff (Primary Dx); Tear of left rotator cuff, unspecified tear extent, unspecified whether traumatic 04/19/2025 Bamboo flowsheet [facility] [address] [place] [address] Edith Lombardo, AUDIO TECHNICIAN 04/19/2025 Travel 04/17/2025 10:30 AM EDT Treatment [facility] [address] [facility] [address] [place] [address] Edith Lombardo, AUDIO TECHNICIAN Tendinitis of left rotator cuff (Primary Dx); Tear of left rotator cuff, unspecified tear extent, unspecified whether traumatic 04/17/2025 Bamboo flowsheet [facility] [address] [facility] [address] [place] [address] Edith Lombardo, AUDIO TECHNICIAN 04/17/2025 Travel 04/12/2025 10:30 AM EDT Treatment [facility] [address] [facility] [address] [place] [address] Jalen Sheridan, AUDIO TECHNICIAN Tendinitis of left rotator cuff (Primary Dx); Tear of left rotator cuff, unspecified tear extent, unspecified whether traumatic; Other shoulder lesions, left shoulder 04/12/2025 Bamboo flowsheet [facility] [address] [place] [address] Jalen Sheridan, AUDIO TECHNICIAN 04/12/2025 Travel 04/10/2025 10:30 AM EDT Treatment [facility] [address] [facility] [address] [place] [address] Jalen Sheridan, AUDIO TECHNICIAN Tendinitis of left rotator cuff (Primary Dx); Tear of left rotator cuff, unspecified tear extent, unspecified whether traumatic; Other shoulder lesions, left shoulder 04/10/2025 Bamboo flowsheet [facility] [address] [facility] [address] [place] [address] Jalen Sheridan, AUDIO TECHNICIAN 04/10/2025 Travel 04/08/2025 Travel 04/05/2025 11:30 AM EDT Treatment [facility] [address] [facility] [address] [place] [address] Kelbley, Edith, AUDIO TECHNICIAN Tendinitis of left rotator cuff (Primary Dx); Tear of left rotator cuff, unspecified tear extent, unspecified whether traumatic; Other shoulder lesions, left shoulder 04/05/2025 Bamboo flowsheet [facility] [address] [facility] [address] [place] [address] Edith Lombardo, AUDIO TECHNICIAN 04/05/2025 Travel 04/03/2025 10:30 AM EDT Treatment [facility] [address] [facility] [address] [place] [address] Jalen Sheridan, JADIEL Tendinitis of left rotator cuff (Primary Dx); Tear of left rotator cuff, unspecified tear extent, unspecified whether traumatic; Other shoulder lesions, left shoulder 04/03/2025 Travel 04/02/2025 Travel 03/29/2025 10:30 AM EDT Treatment [facility] [address] [facility] [address] [place] [address] Kelbley, Edith, AUDIO TECHNICIAN Tendinitis of left rotator cuff (Primary Dx); Tear of left rotator cuff, unspecified tear extent, unspecified whether traumatic; Other shoulder lesions, left shoulder 03/29/2025 Bamboo flowsheet [facility] [address] [facility] [address] [place] [address] Kait Lombardoissa, AUDIO TECHNICIAN 03/29/2025 Travel 03/27/2025 10:30 AM EDT Treatment [facility] [address] [facility] [address] [place] [address] Jalen Sheridan, AUDIO TECHNICIAN Tendinitis of left rotator cuff (Primary Dx); Tear of left rotator cuff, unspecified tear extent, unspecified whether traumatic; Other shoulder lesions, left shoulder 03/27/2025 Bamboo flowsheet [facility] [address] [facility] [address] [place] [address] Jalen Sheridan, AUDIO TECHNICIAN 03/27/2025 Travel 03/24/2025 Travel 03/22/2025 10:30 AM EDT Treatment [facility] [address] [facility] [address] [place] [address] Carmelo Welch, AUDIO TECHNICIAN Tendinitis of left rotator cuff (Primary Dx); Tear of left rotator cuff, unspecified tear extent, unspecified whether traumatic; Other shoulder lesions, left shoulder 03/22/2025 Bamboo flowsheet [facility] [address] [facility] [address] [place] [address] Carmelo Welch, AUDIO TECHNICIAN 03/22/2025 Travel 03/21/2025 Travel 03/20/2025 10:30 AM EDT Treatment [facility] [address] [facility] [address] [place] [address] Kathryn Flynn, SOBEIDA Tendinitis of left rotator cuff (Primary Dx); Tear of left rotator cuff, unspecified tear extent, unspecified whether traumatic; Other shoulder lesions, left shoulder 03/20/2025 Bamboo flowsheet [facility] [place] [facility] [address] [facility] [address] [place] [address] Kathryn Flynn, PT 03/20/2025 Travel from Last 3 Months Social History Tobacco Use Types Packs/Day Years Used Date Smoking Tobacco: Never Smokeless Tobacco: Never Tobacco Cessation:Counseling Given: Not Answered Comments Unknown Sex and Gender Information Value Date Recorded Sex Assigned at Not on file Legal Sex Female 7:25 PM EDT Gender Identity Not on file Sexual Orientation Not on file Last Filed Vital Signs Vital Sign Reading Time Taken Comments Blood Pressure 136/86 05/16/2018 12:00 PM EDT Pulse - - Temperature - - Respiratory Rate - - Oxygen Saturation - - Inhaled Oxygen Concentration - - Weight 72.6 kg (160 lb) 05/16/2018 12:00 PM EDT Height 165.1 cm (5' 5 ) 05/16/2018 12:00 PM EDT Body Mass Index 26.63 05/16/2018 12:00 PM EDT Plan of Treatment Upcoming Encounters Date Type Department Care Team (Late st Contact Info) Description 11/08/2025 3:30 PM EST Office Visit [facility] [address] [place] [address] Nidhi Hawkins PA [address] [place] [address] Insurance [facility]
--- OUTSIDE RECORDS SUMMARY | 2025-06-16 08:23 | XMS_ITS | Encounter Summary ---
Author Organization [facility] Address [address] [place] [address] Care Team Providers Care Yard Pipe Grader Name Role Phone Romie Rdz DO Primary Care Provider [phone] Source Comments In the event this information is protected by the Federal Confidentiality of Alcohol and Drug AbusePatient Records regulations: The Federal rules restrict any use of the information to criminally investigate or prosecute any alcohol or drug abuse patient.[facility] Encounter Details Date Type Department Care Team (Late st Contact Info) Description 02/03/2018 Get Medical Advice Neurology [address] [place] [id number] Rodrick Chatterjee, DO [address] [place] [address] RE: Medication Question (Not Renewal) Social [...] 1:00 PM EST Office Visit Neurology [address] [address] Simona Martinez APRN.SOAPING DEPARTMENT SUPERVISOR [address] [place] [address] FOLLOW UP 6 MONTHS documented as of this encounter Visit Diagnoses Not on filedocumented in this encounter Care Teams Yard Pipe Grader Relationship Specialty Start Date End Date Romie Rdz DO [address] [place] [address] PCP - General Family Medicine 07/02/15 documented as of this encounter
--- OUTSIDE RECORDS SUMMARY | 2025-06-16 08:23 | XMS_ITS | Encounter Summary ---
Author Organization [facility] Address [address] [place] [address] Care Team Providers Care Mission Worker Name Role Phone Romie Rdz DO Primary Care Provider [phone] Source Comments In the event this information is protected by the Federal Confidentiality of Alcohol and Drug AbusePatient Records regulations: The Federal rules restrict any use of the information to criminally investigate or prosecute any alcohol or drug abuse patient.[facility] Encounter Details Date Type Department Care Team (Late st Contact Info) Description 12/20/2019 Patient Msg Neurology [address] [place] [id number] Rodrick Chatterjee, DO [address] [place] [address] RE: Appointment Request Social History Tobacco Use Types Packs/Day Years Used Date Smoking Tobacco: Never Smokeless Tobacco: Never Alcohol Use Standard Drinks/Week Comments Yes 0 (1 standard drink = 0.6 oz pur e alcohol) Infrequent PHQ-2 Answer Date Recorded PHQ-2 Score 0 09/11/2019 Comments No Sex and Gender Information Value Date Recorded Sex Assigned at Not on file Legal Sex Female 9:34 AM EDT Gender Identity Not on file Sexual Orientation Not on file documented as of this encounter Plan of Treatment Upcoming Encounters Date Type Department Care Team (Late st Contact Info) Description 10/10/2025 1:00 PM EST Office Visit Neurology [address] [address] Simona Martinez APRN.MANAGER PROGRAMS [address] [place] [address] FOLLOW UP 6 MONTHS documented as of this encounter Visit Diagnoses Not on filedocumented in this encounter Care Teams Mission Worker Relationship Specialty Start Date End Date Romie Rdz DO [address] [place] [address] PCP - General Family Medicine 07/02/15 documented as of this encounter
[2025-06-16 08:42] LABS: Hematocrit 36.7 % (36.0-48.0); Hemoglobin 12.7 g/dL (12.0-16.0); Immature Granulocytes Abs Auto 0.01 10^3/uL (0.00-0.03); Immature Granulocytes Pct Auto 0.1 % (0.0-0.5); Lymphocytes Absolute Auto 2.6 10^3/uL (1.2-3.8); Mean Corpuscular HGB Conc 34.6 g/dL (29.9-35.2); Mean Corpuscular Hemoglobin 31.4 pg (26.7-34.0); Mean Corpuscular Volume 90.8 fL (81.0-99.0); Platelet Count 274 10^3/uL (150-450); Red Blood Count 4.04 10^6/uL (4.20-5.40); White Blood Count 7.5 10^3/uL (4.0-11.0)
[2025-06-16 09:14] LABS: Alanine Aminotransferase 23 U/L (14-59); Albumin Globulin Ratio 1.2; Albumin Level 3.9 g/dL (3.4-5.0); Alkaline Phosphatase 44 U/L (46-116); Anion Gap 8.2; Aspartate Amino Transferase 16 U/L (15-37); Blood Urea Nitrogen 16.0 mg/dL (7.0-18.0); Calcium 8.9 mg/dL (8.5-10.1); Carbon Dioxide 30.9 mmol/L (21.0-32.0); Chloride 107 mmol/L (98-107); Cholesterol 207 mg/dL (<=200); Estimated GFR (African America >60 (>=60 mL/min/1.73m^2); Estimated GFR (Non-African Ame 54 (>=60 mL/min/1.73m^2); Globulin 3.3 g/dL; Glucose 98 mg/dL (74-106); HDL Cholesterol 50 mg/dL (40-60); Potassium 4.1 mmol/L (3.5-5.1); Sodium 142 mmol/L (136-145); Total Protein 7.2 g/dL (6.4-8.2); Triglycerides 134 mg/dL (<=150); VLDL CHOLESTEROL 26.8 mg/dL
== END 2025-06-16 08:19 | disposition home or self-care (01) ==
PROVIDERS: PCP Family Medicine; Visit Provider Family Medicine
DX: E78.1 Pure hyperglyceridemia (principal); Z79.899 Other long term (current) 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; R73.9 Hyperglycemia, unspecified
CPT/HCPCS: 36415; 80053; 80061; 83036; 85025

== ENCOUNTER 2025-07-04 15:28 | Outpatient (OUT) | payer BC, SELFPAY ==
[2025-07-04 16:30] LABS: Glucose Urine UA NEGATIVE (NEGATIVE)
--- OUTSIDE RECORDS SUMMARY | 2025-07-04 19:18 | XMS_ITS | CCD ---
Author Organization [facility] Care Team Providers Care Emts Name Role Phone Anand Garcia Unavailable Dario Green II Unavailable Yemi, Marianne Unavailable DO Anand Garcia Primary Care Provider DO Anand Garcia Attending Provider Anand Garcia DO Primary Care Provider Anand Garcia DO Primary Care Provider DR ANAND GARCIA Consulting Unavailable GIRVIN, DR [...] Unavailable Girromelia DO Anand Primary Care Provider [phone] DO Anand Garcia Attending Provider Anand Garcia DO Primary Care Provider Anand Garcia DO Primary Care Provider CRESENCIO ROBLES Referring Unavailable ANAND GARCIA Primary Care Unavailable DO Anand Garcia Primary Care Provider DO Anand Garcia Attending Provider Unavailable Primary Care Provider Unavailabl e Anand Garcia DO Primary Care Provider [phone] Anand Garcia DO Attending Provider Ralph Hoff DO Attending Provider Anand Garcia DO Primary Care Provider [phone] Anand Garcia DO Primary Care Provider [phone] Ralph Hoff DO Attending Provider Anand Garcia DO Primary Care Provider Ralph Hoff DO Attending Provider SIMONA CARLSON Attending Unavailable ANAND GARCIA Primary Care Unavailable SIMONA CARLSON Attending Unavailable ANAND GARCIA Primary Care Unavailable XAVIER HARRISON Attending Unavailable PENNY RALPH Referring Unavailable XAVIER HARRISON Attending Unavailable PENNY, RALPH Referring Unavailable KATHRYN FLYNN Attending Unavailable PENNY, RALPH Referring Unavailable KATHRYN FLYNN Attending Unavailable JALEN MAGANA Attending Unavailable PENNY, RALPH Referring Unavailable KATHRYN FLYNN Attending Unavailable PENNY, RALPH Referring Unavailable KATHRYN FLYNN Attending Unavailable PENNY, RALPH Referring Unavailable EDITH DICKSON Attending Unavailable PENNY, RALPH Referring Unavailable BRSTEPHANIE, XAVIER Attending Unavailable PENNY, RLAPH Referring Unavailable IZZY, JALEN Attending Unavailable PENNY, [...] KATHRYN Attending Unavailable PENNY, RALPH Referring Unavailable BRINK, [...] Referring Unavailable SANJAY HAWKINS Attending Unavailable ANAND GARCIA Referring Unavailable SALTY, KATHRYN Attending Unavailable PENNY, RALPH Referring Unavailable BRINK, XAVIER Attending Unavailable PENNY, RALPH Referring Unavailable SANJAY HAWKINS Attending Unavailable BRSTEPHANIE, XAVIER Attending Unavailable PENNY, RALPH Referring Unavailable BRSTEPHANIE, XAVIER Attending Unavailable PENNY, RALPH Referring Unavailable Anand Garcia DO Primary Care Provider [phone] Ralph Hoff DO Attending Provider [phone] Anand Garcia DO Attending Provider Anand Garcia DO Primary Care Provider Ralph Hoff DO Attending Provider [phone] Anand Garcia DO Attending Provider Marybel WEALTH MANAGEMENT DIRECTOR, Ely Shultz Attending Provider Anand Garcia Primary Care Unavailable Ralph Hoff Admitting Unavailable Ralph Hoff A Attending Unavailable Anand Garcia Primary Care Unavailable Ralph Hoff Admitting Unavailable Ralph Hoff Attending Unavailable Anand Garcia Primary Care Unavailable Ralph Hoff Attending Unavailable Ralph Hoff Admitting Unavailable Ely No Attending Unavailable Ely No Admitting Unavailable Anand Garcia Admitting Unavailable Anand Garcia Primary Care Unavailable Anand Garcia Attending Unavailable Anand Garcia Primary Care Unavailable Ralph Hoff Admitting Unavailable Ralph Hoff Attending Unavailable Allergies Allergy Classification Reported Allergen(s) Allergy Type Date of Onset Reaction(s) Facility (20 sources) NSAIDs Propensity to adverse reactions 06-21-20 24 Unknown [facility] Healthcare (16 sources) Sulfamethoxazole / Trimethoprim; Translations: [Bactrim] Drug Allergy 04-10-20 19 kidney [facility] Repository (20 sources) topiramate; Translations: [TOPIRAMATE] Drug Allergy 05-09-20 18 Mental Status Change [facility] (1 source) NSAIDs Drug allergy (disorder) 04-10-20 19 [facility] Repository (20 sources) Sulfamethoxazole; Translations: [sulfamethoxazole] Drug Allergy 06-21-20 24 kidney [facility] (20 sources) Trimethoprim; Translations: [trimethoprim] Drug Allergy 06-21-20 24 [facility] (14 sources) NSAIDS (Non-Steroidal Anti-Inflamma; Translations: [NSAIDS (Non-Steroidal Anti-Inflamma] Allergy to substance 06-21-20 24 [facility] (20 sources) Sulfamethoxazole / Trimethoprim Drug Allergy 06-28-20 20 Unknown [facility] Healthcare (20 sources) Topiramate Allergy to substance 05-09-20 18 Unknown [facility] Healthcare Medications Current Medications Medication Drug Class(es) Dates Sig (Normalized) Sig (Original) acetaminophen 325 mg / HYDROcodone bitartrate 5 mg oral tablet (20 sources) Opioid Agonist Start: 02-09-2025 End: 06-27-2025 Hydrocodone-Acetam inophen 5-325 mg tablet Active 1 TAB PO .COMPLEX 21 05June 27, 2025 1 tab orally q6-8 hours prn; [...] for 7 days Jul, Active Start: 05-21-2020 [place] 5-325 MG 1 tablet Orally q6-8 hrs [...] a day; Note: Source Status: Taking; Provider: Kendell Michel ( ) Vitamin C Active Comment on above: Take 1,000 mg by lillie th once daily. ascorbic acid (Vitamin C) 500 mg/mL oral liquid (20 sources) Start: 03-22-2024 ascorbic acid (Vitamin C) 500 mg/mL oral liquid Daily 03/22/2024 Active Atogepant (20 sources) Start: 12-19-2024 take 1 tablet by mouth once daily at bedtime Start: 12-19-2024 take 1 tablet by lillie [...] mouth Active atogepant (QULIPTA) 60 mg tablet (16 sources) Start: 06-21-2025 End: 06-21-2026 take 1 tablet by mouth once daily atogepant (QULIPTA) 60 mg tablet Take 1 tablet by mouth once daily. 90 tablet 1 06/21/2025 06/21/2026 Active Start: 06-09-2024 End: 06-20-2025 take 1 tablet by mouth once daily in the morning atogepant (QULIPTA) 60 mg tablet Take 1 tablet (60 mg) by mouth once daily. 30 tablet 11 05/25/2025 8:31 AM EDT 06/09/2024 06/20/2025 Discontinued Start: 06-09-2024 End: 06-09-2025 take 1 tablet [...] tablet (2 sources) gamma-Aminobutyric Acid-ergic Agonist Start: 2 End: 2 take 1 tablet by mouth twice daily as needed baclofen (LIORESAL) 10 mg tablet Indications: Cervicalgia , History of fusion of cervical spine , Cervical spondylosis Take 1 tablet by mouth twice daily as needed. 40 tablet 0 09/28/2022 10/28/2022 Active Comment on above: Take 1 tablet by [facility] twice daily as needed. cephalexin 500 mg oral capsule (3 sources) Cephalosporin Antibacterial Start: take 1 capsule by mouth twice daily Cephalexin 500 mg capsule Active 500 MG PO Twice daily 14 June 22, 2025 12:00am Complies with 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 ciclopirox 10 mg/ml medicated shampoo (20 sources) Start: Ciclopirox 1 % shampoo Active 5 ML [...] dihydroergotamine mesylate 0.725 MG/ACTUAT Metered Dose Nasal Brandt [Trudhesa] (2 sources) Trudhesa 0.725 MG/ACT 1 spray in each nostril may repeat dose after 1 hour no more than 3 doses per week as needed Nasally Once a day Active docusate sodium 100 mg oral capsule (8 sources) Start: 025 take 1 capsule by mouth twice daily as needed for constipation Docusate Sodium (Colace) 100 mg capsule Active 100 MG PO Twice daily as needed for Constipation 20 08January 09, 2025 12:00am DO NOT RECONCILE UNTIL [...] (4 sources) take 5 tablets by mo njh once daily Magnesium 100 MG 5 tablets (500 MG) Orally qd Active take 1 tablet by mouth once haylee y Magnesium 500 MG 1 tablet with a meal Orally Once a day Active Magnesium Hydroxide (17 sources) take 400 mg by mouth once daily magnesium hydroxide (MAGNESIA ORAL) Take 400 mg by mouth once daily. Active take 400 mg by mouth once daily magnesium hydroxide (MAGNESIA ORAL) Take 400 mg by mouth once daily. 0 Active Comment on above: Take 400 mg by mouth once daily. magnesium oxide 500 mg oral tablet (13 sources) Start: 12-16-2023 Magnesium Oxide 500 mg magnesium tablet Active 420 MG PO Every morning December 16, 2023 1:00am Complies with 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 Start: 12-16-2023 [facility] Magnesium Oxide 500 mg magnesium tablet Active 500 MG PO Daily December 16, 2023 12:00am ondansetron (Zofran) 1 MG split tablet (20 sources) ondansetron (Zof ran) 1 MG split tablet Take 4 mg by mouth Active 24 hr propranolol hydrochloride 80 mg extended [...] a day; Note: Source Status: Taking; Provider: Kendell Michel ( ) Start: 11-26-2023 End: 10-04-2024 take 1 capsule by mouth once daily in the morning Propranolol 80 mg capsule,extended release 24 hr Active 80 MG PO Every morning November 16, 2024 1:00am Complies with 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 Start: 12-02-2021 End: 11-23-2022 take 1 capsule by mouth once daily propranolol ER (INDERAL LA) 80 mg 24 hr capsule Take 1 capsule by mouth once daily. 90 capsule 3 11/24/2022 Active take 1 tablet by lillie th every twenty-four hours Propranolol HCl 80 MG 1 Tablet Orally Once a day Active Comment on above: Take 1 capsule by mo [facility] once daily. rimegepant 75 mg disintegrating oral tablet (17 sources) Start: take 1 tablet by mouth once daily as needed for headache Rimegepant (Nurtec Odt) 75 mg tablet,disintegrati ng Active 75 MG PO Daily as needed for migraine headache November 16, 2024 1:00am Complies with 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 Start: 10-04-2024 take 1 tablet by lillie th every twenty-four hours in the morning rimegepant (NURTEC ODT) 75 mg disintegrating tablet Take 1 dissolvable tablet by mouth at migraine onset. Take only 1 tablet per 24 hours. 8 tablet 11 05/25/2025 8:31 AM EDT 10/04/2024 Active 72 hr scopolamine 0.0139 [...] on above: Take 1 capsule by mo [facility] twice daily as needed. Vitamin C 1000 MG (6 sources) Vitamin C 1000 M G as directed Once a day Not-Taking Vitamin C 1000 M G as directed Once a day Active vitamin e 180 mg oral capsule (13 sources) Start: 12-16-2023 take 1 capsule by [...] Sig (Original) acetaminophen 500 mg oral tablet (8 sources) Start: 01-09-2025 End: 06-27-2025 take 1 tablet by mouth every six hours as needed for pain Acetaminophen 500 mg tablet Discontinued 500 MG PO Q6H as needed for Pain January 09, 2025 12:00am June 27, 2025 2:37pm DO NOT RECONCILE UNTIL DOS 01/10/25 TO BE USED POST OP dihydroergotamine mesylate 0.5 mg/actuat metered dose nasal [...] 1 spray in each nostril. 8 mL 11 07/21/2023 Active Comment on above: Prime with [...] Orally Once a day Active Multivitamin tablet (12 sources) Start: 12-16-2023 End: 12-20-2023 take 1 [...] 4 mg by mouth a s needed. oxyCODONE hydrochloride 5 mg oral tablet (8 sources) Opioid Agonist Start: 5 End: 5 take 1 tablet by mouth every six hours as needed for pain Oxycodone 5 mg tablet Discontinued 5 MG PO Q6H as needed for Pain 20 January 09, 2025 June 27, 2025 2:38pm DO NOT RECONCILE UNTIL DOS 01/10/25 TO BE USED POST OP rizatriptan 10 mg oral tablet (20 sources) Serotonin-1b and Serotonin-1d Receptor Agonist Start: 0 rizatriptan (MAXALT) 10 mg tablet 1 tab [...] tablet (20 sources) HMG-CoA Reductase Inhibitor Start: 4 End: take 1 tablet by mouth once daily Rosuvastatin 5 mg tablet Discontinued 0 .ROUTE .COMPLEX June 13, 2024 8:07am December 26, 2024 3:21pm TAKE 1 TABLET BY MOUTH EVERY DAY Start: 12-29-2023 End: 03-22-2024 take 1 tablet by mouth once daily Rosuvastatin 5 mg tablet Discontinued 0 .ROUTE .COMPLEX December 29, 2023 2:05pm March 22, 2024 [...] 11/08/2024 Discontinued take 2.5 mg nasal [place] once daily as needed Zomig 2.5 MG [...] 4 01-07-2024 Chronic Blindness and vision defects (13 sources) Diplopia; Translations: [Diplopia] 12-20-2023 Episodic Chronic kidney disease (20 sources) Chronic kidney disease; Translations: [Chronic kidney disease, unspecified] Onset: 2 Resolved: 2 Chronic Diabetes mellitus without complication (20 sources) Hyperglycemia, unspecified; Translations: [Hyperglycemia] Onset: 2 Resolved: 2 Episodic Diseases of white blood cells (16 sources) Leukocytosis; Translations: [Elevated white blood cell [...] 2 Chronic Other aftercare (9 sources) Other long term care social worker (current) 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; Translations: [OTH [facility] CURRENT DRUG THERAPY] Onset: 2 Resolved: 2 Episodic Other aftercare (3 sources) Surgical follow-up; Translations: [Encounter for removal of sutures] 01-22-2025 Episodic Other aftercare (3 sources) Encounter for removal of sutures; Translations: [Encounter for removal of sutures] 01-22-2025 Episodic Other aftercare (4 sources) Removal of sutures done; Translations: [Encounter for [...] unspecified] 10-19-2024 Episodic Other connective tissue disease (20 sources) Biceps tendinitis; Translations: [Bicipital tendinitis, left shoulder] 12-18-2024 Episodic Other connective tissue disease (10 sources) Bicipital tendinitis, left shoulder; Translations: [Bicipital tenosynovitis] 12-18-2024 Episodic Other connective tissue disease (12 sources) Triggering of digit; Translations: [Trigger finger, [...] dermatitis] 08-30-2024 Episodic Other nervous system disorders (13 sources) Disturbance in speech; Translations: [Unspecified speech disturbances] 12-20-2023 Episodic Other non-traumatic joint disorders (18 sources) Pain in left shoulder; Translations: [Left shoulder pain] Onset: 4 06-21-2024 Episodic Other nutritional; endocrine; and metabolic disorders (11 sources) [place] hump; 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] Chronic Other nutritional; endocrine; and metabolic disorders (2 sources) Localized adiposity; Translations: [LOCALIZED ADIPOSITY] Onset: 2 Resolved: 2 Chronic Other nutritional; endocrine; and metabolic disorders (19 sources) Hypomagnesemia; Translations: [Hypomagnesemia] 12-16-2023 Chronic Other nutritional; endocrine; and metabolic disorders (8 sources) Hypomagnesemia; 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 Other nutritional; endocrine; and metabolic disorders (9 sources) Abnormal weight gain; Translations: [Abnormal weight gain] Onset: 2 Resolved: 2 Episodic Other nutritional; endocrine; and metabolic disorders (13 sources) Weight increased; Translations: [Abnormal weight gain] 06-21-2024 Episodic Other nutritional; endocrine; and metabolic disorders (12 sources) Intentional weight loss 03-22-2024 Episodic Other screening for suspected conditions (not mental disorders or infectious disease) (20 sources) Screening status; Translations: [Encounter for screening for malignant neoplasm of colon] Onset: 2 Resolved: 2 Episodic Residual codes; unclassified (19 sources) History of arthroscopic procedure on shoulder; Translations: [Other specified postprocedural states] 01-09-2025 Episodic Spondylosis; intervertebral disc disorders; other back [...] weight loss; Translations: [Intentional weight loss] 03-22-2024 Urinary tract infections (7 sources) Urinary tract infectious disease; Translations: [Urinary tract infection, site not specified] 06-22-2025 Episodic Viral infection (16 sources) Viral disease; Translations: [Viral infection, unspecified] [...] Translations: [ARTHRODESIS STATUS] Onset: 02-05-2022 Episodic Other connective tissue disease (1 source) Complete rotator cuff tear or rupture of left shoulder, not specified as traumatic; Translations: [Complete rotator cuff tear or rupture of left shoulder, not specified as traumatic] Onset: 01-10-2025 Episodic Other non-traumatic joint disorders (1 source) [...] BOTH CERVIX AND UTERUS] Onset: 02-05-2022 Episodic Residual codes; unclassified (5 sources) Other specified postprocedural states; Translations: [Other postprocedural status] Onset: 01-22-2025 01-22-2025 Episodic Results Test Name Value Interpretation Reference Range Facility Appearance of UrineOrdered B y: Ely No on 06-22-2025 Appearance (U) Turbid Abnormal Clear [facility] Comment on above: Order Comment: Name Collection Type:: Clean-Voided Midstream Performed By: #### A DDONUAPLUS, CUU #### [address] Bacteria [Presence] in Urine by AutomatedOrdered By: Ely No on 06-22-2025 Bacteria Auto Ql (U) None seen [HPF] None Seen [facility] Bilirubin Test strip Ql (U)O rdered By: Ely No on 06-22-2025 Bilirubin Ql (U) Negative Negative [facility] Color of Urine by AutoOrdere d By: Ely Marybel on 06-22-2025 Color (U) Yellow Yellow [facility] Comment on above: Order Comment: Name Collection Type:: Clean-Voided Midstream Performed By: #### A DDONUAPLUS, CUU #### [address] Crystals [Presence] in Urine by AutomatedOrdered By: Ely No on 06-22-2025 Crystals Auto Ql (U) 1+ [HPF] [facility] Dipstick and Microscopicon 0 06-22-2025 Bacteria,Urine None Seen Normal None Seen [facility] Comment on above: Order Comment: Name Collection Type:: Clean-Voided Midstream Performed By: #### A DDONUAPLUS, CUU #### [address] Bilirubin,Urine Negative Normal Negative [facility] Comment on above: Order Comment: Name Collection Type:: Clean-Voided Midstream Performed By: #### A DDONUAPLUS, CUU #### [address] [place] Yeast,Urine 2+ [HPF] Normal None Seen [facility] Comment on above: Order Comment: Name Collection Type:: Clean-Voided Midstream Result Comment: PERF ORMED BY: [place] [address] PATHOLOGIST NURSE ADVOCATE VLADIMIR POST M.D. Performed By: #### A DDONUAPLUS, CUU #### [address] Glucose Ql (U) Normal Normal Normal [facility] Comment on above: Order Comment: Name Collection Type:: Clean-Voided Midstream Performed By: #### A DDONUAPLUS, CUU #### [place] [address] [place] Hyaline Casts,Urine None Normal 0-8 [facility] Comment on above: Order Comment: Name Collection Type:: Clean-Voided Midstream Performed By: #### A DDONUAPLUS, CUU #### [place] [address] [place] Mucus,Urine Rare Normal [facility] Comment on above: Order Comment: Name Collection Type:: Clean-Voided Midstream Performed By: #### A DDONUAPLUS, CUU #### [place] [address] [place] Nitrite,Urine Negative Normal Negative [facility] Comment on above: Order Comment: Name Collection Type:: Clean-Voided Midstream Performed By: #### A DDONUAPLUS, CUU #### [place] [address] [place] Occult Blood,Urine 3+ Normal Negative [facility] Comment on above: Order Comment: Name Collection Type:: Clean-Voided Midstream Result Comment: PERF ORMED BY: [place] [address] PATHOLOGIST NURSE ADVOCATE VLADIMIR POST M.D. Performed By: #### A DDONUAPLUS, CUU #### [address] [place] Crystals,Urine 1+ [HPF] Normal [facility] Comment on above: Order Comment: Name Collection Type:: Clean-Voided Midstream Performed By: #### A DDONUAPLUS, CUU #### [place] [address] [place] RBC,Urine Innumerable Normal 0-4 [facility] Comment on above: Order Comment: Name Collection Type:: Clean-Voided Midstream Performed By: #### A DDONUAPLUS, CUU #### [place] [address] [place] Specificy [place],Urine 1.022 Normal 1.001-1.030 [facility] Comment on above: Order Comment: Name Collection Type:: Clean-Voided Midstream Performed By: #### A DDONUAPLUS, CUU #### [place] [address] [place] Squamous Epithelial Cell,Urine 1-2 Normal 0-2 [facility] Comment on above: Order Comment: Name Collection Type:: Clean-Voided Midstream Performed By: #### A DDONUAPLUS, CUU #### [address] Urobilinogen,Urine Normal Normal Normal [facility] Comment on above: Order Comment: Name Collection Type:: Clean-Voided Midstream Performed By: #### A DDONUAPLUS, CUU #### [address] WBC CLUMP, Urine Many Normal None Seen [facility] Comment on above: Order Comment: Name Collection Type:: Clean-Voided Midstream Performed By: #### A DDONUAPLUS, CUU #### [address] WBC,Urine Innumerable Normal 0-4 [facility] Comment on above: Order Comment: Name Collection Type:: Clean-Voided Midstream Performed By: #### A DDONUAPLUS, CUU #### [address] Epithelial cells.squamous [# /area] in Urine sediment by Automated countOrdered By: Ely No on 06-22-2025 Epithelial cells.squamous Auto (Urine sed) [#/Area] 1-2 [HPF] 0-2 [facility] Erythrocytes [#/area] in Uri ne sediment by Automated countOrdered By: Ely No on 06-22-2025 RBC Auto (Urine sed) [#/Area] Innumerable [HPF] High 0-4 [facility] Glucose [Mass/volume] in Uri ne by Test stripOrdered By: Ely No on 06-22-2025 Glucose Test strip (U) [Mass/Vol] Normal mg/dL Normal [facility] Hemoglobin Test strip Ql (U) Ordered By: Ely No on 06-22-2025 Hemoglobin Ql (U) 3+ High Negative [facility] Hyaline casts [#/area] in Ur ine sediment by Automated countOrdered By: Ely No on 06-22-2025 Hyaline casts Auto (Urine sed) [#/Area] None [LPF] 0-8 [facility] Ketones [Presence] in Urine by Test stripOrdered By: Ely No on 06-22-2025 Ketones Ql (U) Negative Negative [facility] Comment on above: Order Comment: Name Collection Type:: Clean-Voided Midstream Performed By: #### A ISACC CUU #### [facility] [address] [place] [address] Laboratory - Chemistry and C hemistry - challengeOrdered By: Ely No on 06-22-2025 Bilirubin Ql (U) Negative [facility] Glucose (U) [Mass/Vol] Negative Fi [facility] Ketones Ql (U) Negative [facility] pH (U) 7.0 [pH] [facility] Specific gravity (U) [Rel density] >=1.030 [facility] Urobilinogen (U) [Mass/Vol] 0.2 mg/dL [facility] Laboratory - Specimen inform ationOrdered By: Ely No on 06-22-2025 Appearance (U) cloudy [facility] Color (U) yellow [facility] Laboratory - UrinalysisOrder ed By: Ely No on 06-22-2025 Leukocyte esterase Test strip Ql (U) small [facility] Nitrite Ql (U) Negative [facility] Protein Ql (U) >=300 [facility] Leukocyte clumps [Presence] in Urine by AutomatedOrdered By: Ely No on 06-22-2025 Leukocyte clumps Auto Ql (U) Many [LPF] High None Seen [facility] Leukocyte esterase [Presence ] in Urine by Test stripOrdered By: Ely No on 06-22-2025 Leukocyte esterase Test strip Ql (U) 4+ High Negative [facility] Comment on above: Order Comment: Name Collection Type:: Clean-Voided Midstream Performed By: #### A ISACC CUU #### [facility] [address] [place] [address] [place] Leukocytes [#/area] in Urine sediment by Automated countOrdered By: Ely No on 06-22-2025 WBC Auto (Urine sed) [#/Area] Innumerable [HPF] High 0-4 [facility] Mucus [Presence] in Urine by AutomatedOrdered By: Ely No on 06-22-2025 Mucus Auto Ql (U) Rare [LPF] [facility] Nitrite Test strip Ql (U)Ord ered By: Ely No on 06-22-2025 Nitrite Ql (U) Negative Negative [facility] No Panel InformationOrdered By: Ely No on 06-22-2025 Urine Occult Blood large [facility] Protein [Mass/volume] in Uri ne by Test stripOrdered By: Ely No on 06-22-2025 Protein (U) [Mass/Vol] 100 mg/dL High Negative [facility] Comment on above: Order Comment: Name Collection Type:: Clean-Voided Midstream Performed By: #### A DDONUAPLUS, CUU #### [facility] [address] Specific gravity Test strip (U) [Rel density]Ordered By: Ely No on 06-22-2025 Specific gravity (U) [Rel density] 1.022 1.001-1.030 [facility] Urine Cultureon 06-22-2025 Bacteria identified Cx Nom (U) ORGANISM: Escherichia coli (O:ESCCOL) [place] Count >100,000 Aerobic CHANEL Charge ([id number]) ---- SUSCEPTIBILITY --- ORGANISM: O:ESCCOL ANTIBIOTIC INTERPRETATION CHANEL Amikacin S <16 Amoxacillin/K Clavulanate S <8 Ampicillin S <8 Ampicillin/Sulbactam S <4 Aztreonam S <4 Cefazolin S <2 Cefepime S <2 Ceftazidime S <1 Ceftazidime/Avibactam S <4 Ceftolozane/Tazobacta m S <2 Ceftriaxone S <1 Cefuroxime S <4 Ciprofloxacin S <0.25 Ertapenem S <0.5 Gentamicin S <2 Levofloxacin S <0.5 Meropenem S <1 Meropenem/Vaborbactam S <2 Nitrofurantoin S <32 Piperacillin/Tazobact am S <8 Tetracycline S <4 Tigecycline S <2 Tobramycin S <2 Trimethoprim/Sulfamet hoxazole S <0.5 S = SUSCEPTIBLE I = INTERMEDIATE R = RESISTANT BLANK = DATA NOT AVAILABLE, OR DRUG NOT ADVISABLE OR TESTED R* = RESISTANCE DUE TO EXTENDED SPECTRUM BETA-LACTAMASES ESBL = EXTENDED SPECTRUM BETA-LACTAMASE TFG = THYMIDINE-DEPENDENT STRAIN THU = BETA-LACTAMASE POSITIVE IB = INDUCIBLE BETA-LACTAMASE. APPEARS IN PLACE OF 'S' WITH SPECIES KNOWN TO POSSESS INDUCIBLE BETA-LACTAMASES. POTENTIALLY THEY MAY BECOME RESISTANT TO ALL B-LACTAM DRUGS. PERFORMED BY: [place] [address] PATHOLOGIST NURSE ADVOCATE VLADIMIR POST M.D. Normal [facility] Comment on above: Performed By: #### A MAGUE DEXTERU #### [facility] [address] [place] [address] Urine cultureOrdered By: Kasandra No on 06-22-2025 Bacteria identified Cx Nom (U) Escherichia coli Abnormal [facility] Urobilinogen Test strip (U) [Mass/Vol]Ordered By: Ely No on 06-22-2025 Urobilinogen (U) [Mass/Vol] Normal mg/dL Normal [facility] Yeast.budding [Presence] in Urine by Computer assisted methodOrdered By: Ely No on 06-22-2025 Yeast.budding Computer assisted Ql (U) 2+ [HPF] High None Seen [facility] pH of Urine by Test stripOrd ered By: Ely No on 06-22-2025 pH (U) 7.0 [pH] 5.0-9.0 [facility] Comment on above: Order Comment: Name Collection Type:: Clean-Voided Midstream Performed By: #### A ISACC CUU #### [facility] [address] [place] [address] Basophils Auto (Bld) [#/Vol] Ordered By: Anand Garcia on 06-16-2025 Basophils (Bld) [#/Vol] 0.0 10 3/uL 0.0-0.1 [facility] Basophils/100 WBC Auto (Bld) Ordered By: Anand Garcia on 06-16-2025 Basophils/100 WBC (Bld) 0.5 % 0.2-2.0 F [facility] Cholesterol in LDL Calc [Mas s/Vol]Ordered By: Anand Garcia on 06-16-2025 Cholesterol in LDL [Mass/Vol] 131.0 mg/dL [facility] Comment on above: <100 mg/dl [id number] 0-129 mg/dl NEAR OR ABOVE [id number] mg/dl BORDERLINE [id number] mg/dl HIGH>190 mg/dl VERY HIGH Cholesterol in VLDL Calc [Ma ss/Vol]Ordered By: Anand Garcia on 06-16-2025 Cholesterol in VLDL [Mass/Vol] 26.8 mg/dL [facility] Eosinophils/100 WBC Auto (Bl d)Ordered By: Anand Garcia on 06-16-2025 Eosinophils/100 WBC (Bld) 0.0 % Low 0.9-7.0 [facility] Erythrocyte distribution wid th Auto (RBC) [Ratio]Ordered By: Anand Garcia on 06-16-2025 Erythrocyte distribution width (RBC) [Ratio] 12.4 % 11.0-15.0 [facility] Globulin Calc (S) [Mass/Vol] Ordered By: Anand Garcia on 06-16-2025 Globulin (S) [Mass/Vol] 3.3 g/dL [facility] Glomerular filtration rate ( GFR) estimation in non- AmericanOrdered By: Anand Garcia on 06-16-2025 GFR/1.73 sq M.predicted among non-blacks MDRD (S/P/Bld) [Vol rate/Area] 54 mL/min/{1.73_m2} Low >=60 mL/min/1.73m 2 [facility] Glucose mean value [Mass/vol ume] in Blood Estimated from glycated hemoglobinOrdered By: Anand Garcia on 06-16-2025 Average glucose Estimated from glycated hemoglobin (Bld) [Mass/Vol] 103 mg/dL [facility] Hematocrit Auto (Bld) [Volum e fraction]Ordered By: Anand Garcia on 06-16-2025 Hematocrit (Bld) [Volume fraction] 36.7 % 36.0-48.0 [facility] Hemoglobin A1c percentageOrd ered By: Anand Garcia on 06-16-2025 HbA1c (Bld) [Mass fraction] 5.2 % 4.5-6.2 [facility] Comment on above: ADA RECOMMENDED LIMI T 4.0 - 6.0ADA THERAPEUTIC TARGET < 7.0ACTION SUGGESTED> 7.0 Hemoglobin [Mass/volume] in BloodOrdered By: Anand Garcia on 06-16-2025 Hemoglobin (Bld) [Mass/Vol] 12.7 g/dL 12.0-16.0 [facility] Laboratory - Chemistry and C hemistry - challengeOrdered By: Anand Garcia on 06-16-2025 Albumin [Mass/Vol] 3.9 g/dL 3.4-5.0 [facility] ALP [Catalytic activity/Vol] 44 U/L Low 46-116 [facility] ALT [Catalytic activity/Vol] 23 U/L 14-59 [facility] AST [Catalytic activity/Vol] 16 U/L 15-37 [facility] Bilirubin [Mass/Vol] 0.8 mg/dL 0.2-1.0 [facility] Calcium [Mass/Vol] 8.9 mg/dL 8.5-10.1 [facility] Chloride [Moles/Vol] 107 mmol/L 98-107 [facility] Cholesterol [Mass/Vol] 207 mg/dL High <=200 [facility] Cholesterol in HDL [Mass/Vol] 50 mg/dL 40-60 [facility] Comment on above: > or =60 mg/dl - LOW CARDIOVASCULAR RISK<40 mg/dl - HIGH CARDIOVASCULAR RISK CO2 [Moles/Vol] 30.9 mmol/L 21.0-32.0 [facility] Creatinine [Mass/Vol] 1.05 mg/dL High 0.55-1.02 [facility] GFR/1.73 sq M.predicted MDRD (S/P/Bld) [Vol rate/Area] mL/min/{1.73_m2} >=60 mL/min/1.73m 2 [facility] Glucose [Mass/Vol] 98 mg/dL 74-106 [facility] Potassium [Moles/Vol] 4.1 mmol/L 3.5-5.1 [facility] Protein [Mass/Vol] 7.2 g/dL 6.4-8.2 [facility] Sodium [Moles/Vol] 142 mmol/L 136-145 [facility] Triglyceride [Mass/Vol] 134 mg/dL <=150 F [facility] Urea nitrogen [Mass/Vol] 16.0 mg/dL 7.0-18.0 [facility] Urea nitrogen/Creatinine [Mass ratio] 15.2 mg/mg [facility] Laboratory - Hematology and Cell countsOrdered By: Anand Garcia on 06-16-2025 Immature granulocytes/100 WBC (Bld) 0.1 % 0.0-0.5 [facility] Leukocytes [#/volume] correc diana for nucleated erythrocytes in Blood by Automated counOrdered By: Anand Garcia on 06-16-2025 WBC corrected for nucl RBC Auto (Bld) [#/Vol] 7.5 10 3/uL 4.0-11.0 [facility] Lymphocytes Auto (Bld) [#/Vo l]Ordered By: Anand Garcia on 06-16-2025 Lymphocytes (Bld) [#/Vol] 2.6 10 3/uL 1.2-3.8 [facility] Lymphocytes/100 WBC Auto (Bl d)Ordered By: Anand Garcia on 06-16-2025 Lymphocytes/100 WBC (Bld) 34.8 % 20.5-60.0 [facility] MCH Auto (RBC) [Entitic mass ]Ordered By: Anand Garcia on 06-16-2025 MCH (RBC) [Entitic mass] 31.4 pg 26.7-34.0 [facility] MCHC Auto (RBC) [Mass/Vol]Or dered By: Anand Garcia on 06-16-2025 MCHC (RBC) [Mass/Vol] 34.6 g/dL 29.9-35.2 [facility] MCV Auto (RBC) [Entitic vol] Ordered By: Anand Garcia on 06-16-2025 MCV (RBC) [Entitic vol] 90.8 fL 81.0-99.0 [facility] Monocytes Auto (Bld) [#/Vol] Ordered By: Anand Garcia on 06-16-2025 Monocytes (Bld) [#/Vol] 0.5 10 3/uL 0.3-0.8 [facility] Monocytes/100 WBC Auto (Bld) Ordered By: Anand Garcia on 06-16-2025 Monocytes/100 WBC (Bld) 7.2 % 1.7-12.0 [facility] Neutrophils Auto (Bld) [#/Vo l]Ordered By: Anand Garcia on 06-16-2025 Neutrophils (Bld) [#/Vol] 4.3 10 3/uL 1.4-6.5 [facility] Neutrophils/100 WBC Auto (Bl d)Ordered By: Anand Garcia on 06-16-2025 Neutrophils/100 WBC (Bld) 57.4 % 43.0-75.0 [facility] No Panel InformationOrdered By: Anand Garcia on 06-16-2025 Eosinophils # (Auto) 0.0 10 3/uL 0.0-0.7 [facility] Immature Granulocyte # (Auto) 0.01 10 3/uL 0.00-0.03 [facility] Platelet mean volume Auto (B ld) [Entitic vol]Ordered By: Anand Garcia on 06-16-2025 Platelet mean volume (Bld) [Entitic vol] 10.2 fL 9.5-13.5 [facility] Platelets Auto (Bld) [#/Vol] Ordered By: Anand Garcia on 06-16-2025 Platelets (Bld) [#/Vol] 274 10 3/uL 150-450 [facility] RBC Auto (Bld) [#/Vol]Ordere d By: Anand Garcia on 06-16-2025 RBC (Bld) [#/Vol] 4.04 10 6/uL Low 4.20-5.40 [facility] Serum or plasma albumin/glob ulin mass ratioOrdered By: Anand Garcia on 06-16-2025 Albumin/Globulin [Mass ratio] 1.2 {ratio} [facility] Serum or plasma anion gap de terminationOrdered By: Anand Garcia on 06-16-2025 Anion gap [Moles/Vol] 8.2 mmol/L [facility] Serum or plasma total choles terol/high density lipoprotein (HDL) cholesterol mass ratOrdered By: Anand Garcia on 06-16-2025 Cholesterol.total/Choles terol in HDL [Mass ratio] 4.1 {ratio} [facility] Comment on above: 3.3 - 4.4 LOW RISK4. 4 - 7.1 AVERAGE RISK7.1 - 11.0 MODERATE RISK>11.0 HIGH RISK CNOVon 04-04-2025 CNOV Office Visit ([facility]) MYRTLE JONES ([id number]) 1965 F Date Time Provider Department 04/04/25 4:00 PM SIMONA CARLS[facility] During your visit today, we recorded the following information about you: Blood pressure Weight Height 148/82 68 kg 1.702 m Simona Carlson, [employer] SW[employer] OPERATOR 04/04/2025 4:24 PM Signed [facility] [...] more migraines over the past few months. [employer] is working about 80% of the time. [...] Analgesic Butalbital/acetaminop hen/caffeine (Fioricet) Hydrocodone/Acetamino phen (Vicodin, [place]) Anti-Convulsant Topiramate (Topamax, Trokendi XL, Qudexy) Anti-Depressant [...] these with the patient: Yes, Simona Carlson, [employer] SWEEPER OPERATOR HEADACHE SCORES: 03/22/2024 10/01/2024 03/28/2025 Headache [...] 27 2 (more content not included)... Normal [facility] X-ray reportOrdered By: Michael Monroe on 01-22-2025 Study report [facility] [address] [place] [address] XRay Report Signed Patient: Myrtle Jones MR#: [id number] : 1965 Acct:[id number] Age/Sex: 59 / F ADM Date: 5 Loc: [facility] Room: Type: [facility] Attending Dr: Ralph Hoff DO Copies [...] 4:44 PM Dictation Location: RADIO-PC-19 Transcribed By: [facility] 01/22/251643 Dictated By: Seth Monroe DO 01/22/251642 Signed By: 01/22/25 164 [facility] XR shoulder LT min 2V*on XR shoulder LT min 2V* [facility] [address] [place] [address] XRay Report Signed Patient: Myrtle Jones MR#: [id number] : 1965 Acct:[id number] Age/Sex: 59 / F ADM Date: 01/22/25 Loc: [facility] [place] Room: Type: [facility] Attending Dr: Ralph Hoff DO Copies [...] 4:44 PM Dictation Location: RADIO-PC-19 Transcribed By: [facility] 01/22/251643 Dictated By: Seth Monroe DO 01/22/251642 Signed By: 01/22/25 164 [place] [facility] Alanine aminotransferase [En zymatic activity/volume] in Serum or PlasmaOrdered By: Ralph Hoff on 12-26-2024 ALT [Catalytic activity/Vol] Alanine aminotransferase [Enzymatic activity/volume] in Serum or Plasma 7-52 [facility] Albumin [Mass/volume] in Ser um or Plasma by Bromocresol green (BCG) dye binding methoOrdered By: Ralph Hoff on 12-26-2024 Albumin BCG dye [Mass/Vol] Albumin [Mass/volume] in Serum or Plasma by Bromocresol green (BCG) dye binding metho 3.5-5.7 [facility] Alkaline phosphatase [Enzyma tic activity/volume] in Serum or PlasmaOrdered By: Ralph Hoff on 12-26-2024 ALP [Catalytic activity/Vol] Alkaline phosphatase [Enzymatic activity/volume] in Serum or Plasma 34-104 [facility] Aspartate aminotransferase [ Enzymatic activity/volume] in Serum or PlasmaOrdered By: Ralph Hoff on 12-26-2024 AST [Catalytic activity/Vol] Aspartate aminotransferase [Enzymatic activity/volume] in Serum or Plasma 13-39 [facility] Basophils Auto (Bld) [#/Vol] Ordered By: Ralph Hoff on 12-26-2024 Basophils (Bld) [#/Vol] Automated basoph il count 0.0-0.2 [facility] Basophils/100 WBC Auto (Bld) Ordered By: Ralph Hoff on 12-26-2024 Basophils/100 WBC (Bld) Automated basophil % . [facility] Bilirubin.total [Mass/volume ] in Serum or PlasmaOrdered By: Ralph Hoff on 12-26-2024 Bilirubin [Mass/Vol] Bilirubin.total [Mass/volume] in Serum or Plasma 0.3-1.0 [facility] CMP with reflex to A1Con Albumin [Mass/Vol] 4.3 g/dL Normal 3.5-5.7 [facility] Comment on above: Performed By: #### C MP wRFX A1C, CBC #### [address] Albumin/Globulin [Mass ratio] 1.7 {ratio} Normal [facility] Comment on above: Performed By: #### C MP wRFX A1C, CBC #### [address] ALP [Catalytic activity/Vol] 40 U/L Normal 34-104 [facility] Comment on above: Result Comment: PERF ORMED BY: [place] [address] PATHOLOGIST NURSE ADVOCATE NOREEN ARIAS M.D. Performed By: #### C MP wRFX A1C, CBC #### [address] ALT [Catalytic activity/Vol] 13 U/L Normal 7-52 [facility] Comment on above: Performed By: #### C MP wRFX A1C, CBC #### [address] Anion gap [Moles/Vol] 14.1 mmol/L Normal 6.0-15.0 [facility] Comment on above: Performed By: #### C MP wRFX A1C, CBC #### [address] AST [Catalytic activity/Vol] 15 U/L Normal 13-39 [facility] Comment on above: Performed By: #### C MP wRFX A1C, CBC #### [address] Bilirubin [Mass/Vol] 0.6 mg/dL Normal 0.3-1.0 [facility] Comment on above: Performed By: #### C MP wRFX A1C, CBC #### [place] [address] [place] Calcium [Mass/Vol] 9.7 mg/dL Normal 8.6-10.3 [facility] Comment on above: Performed By: #### C MP wRFX A1C, CBC #### [address] Chloride [Moles/Vol] 104 mmol/L Normal 98-107 [facility] Comment on above: Performed By: #### C MP wRFX A1C, CBC #### [address] [place] [address] [place] CO2 [Moles/Vol] 25.3 mmol/L Normal 21.0-31.0 [facility] Comment on above: Performed By: #### C MP wRFX A1C, CBC #### [address] Creatinine [Mass/Vol] 0.90 mg/dL Normal 0.60-1.20 [facility] Comment on above: Performed By: #### C MP wRFX A1C, CBC #### [place] [address] [place] GFR/1.73 sq M.predicted MDRD (S/P/Bld) [Vol rate/Area] mL/min/{1.73_m2} Normal [facility] Comment on above: Performed By: #### C MP wRFX A1C, CBC #### [address] Globulin (S) [Mass/Vol] 2.5 g/dL Normal [facility] Comment on above: Performed By: #### C MP wRFX A1C, CBC #### [place] [address] [place] Glucose [Mass/Vol] 84 mg/dL Normal 70-100 [facility] Comment on above: Performed By: #### C MP wRFX A1C, CBC #### [place] [address] [place] Potassium [Moles/Vol] 4.4 mmol/L Normal 3.5-5.1 [facility] Comment on above: Performed By: #### C MP wRFX A1C, CBC #### [place] [address] [place] Protein [Mass/Vol] 6.8 g/dL Normal 6.4-8.9 [facility] Comment on above: Performed By: #### C MP wRFX A1C, CBC #### [place] [address] [place] Sodium [Moles/Vol] 139 mmol/L Normal 136-145 [facility] Comment on above: Performed By: #### C MP wRFX A1C, CBC #### [facility] [address] Urea nitrogen [Mass/Vol] 21 mg/dL Normal 7-25 [facility] Comment on above: Performed By: #### C MP wRFX A1C, CBC #### [facility] [address] [place] [address] [place] Calcium [Mass/volume] in Ser um or PlasmaOrdered By: Ralph Hoff on 12-26-2024 Calcium [Mass/Vol] Calcium [Mass/volume ] in Serum or Plasma 8.6-10.3 [facility] Carbon dioxide, total [Moles /volume] in Serum or PlasmaOrdered By: Ralph Hoff on 12-26-2024 CO2 [Moles/Vol] Carbon dioxide, tota l [Moles/volume] in Serum or Plasma 21.0-31.0 [facility] Chloride [Moles/volume] in S karyna or PlasmaOrdered By: Ralph Hoff on 12-26-2024 Chloride [Moles/Vol] Chloride [Moles/volume] in Serum or Plasma 98-107 [facility] Complete Blood Count Auto Di ffon 12-26-2024 Basophils (Bld) [#/Vol] 0.1 10*3/uL Normal 0.0-0.2 [facility] Comment on above: Result Comment: PERF ORMED BY: [place] [address] PATHOLOGIST NURSE ADVOCATE NOREEN ARIAS M.D. Performed By: #### C MP wRFX A1C, CBC #### [facility] [address] [place] [address] [place] Basophils/100 WBC (Bld) 0.7 % Normal . [facility] Comment on above: Performed By: #### C MP wRFX A1C, CBC #### [facility] [address] [place] [address] [place] Eosinophils (Bld) [#/Vol] 0.0 10*3/uL Normal 0.0-0.45 [facility] Comment on above: Performed By: #### C MP wRFX A1C, CBC #### [place] [address] [place] Eosinophils/100 WBC (Bld) 0.1 % Normal . [facility] Comment on above: Performed By: #### C MP wRFX A1C, CBC #### [address] Erythrocyte distribution width (RBC) [Ratio] 13.0 % Normal 11.9-15.3 [facility] Comment on above: Performed By: #### C MP wRFX A1C, CBC #### [address] Hematocrit (Bld) [Volume fraction] 36.9 % Normal 34.0-46.4 [facility] Comment on above: Performed By: #### C MP wRFX A1C, CBC #### [address] Hemoglobin (Bld) [Mass/Vol] 12.8 g/dL Normal 11.8-15.4 [facility] Comment on above: Performed By: #### C MP wRFX A1C, CBC #### [place] [address] [place] Lymphocytes (Bld) [#/Vol] 3.1 10*3/uL Normal 1.00-4.8 [facility] Comment on above: Performed By: #### C MP wRFX A1C, CBC #### [place] [address] [place] Lymphocytes/100 WBC (Bld) 31.8 % Normal . [facility] Comment on above: Performed By: #### C MP wRFX A1C, CBC #### [place] [address] [place] MCH (RBC) [Entitic mass] 31.1 pg Normal 24.7-34.3 [facility] Comment on above: Performed By: #### C MP wRFX A1C, CBC #### [address] MCV (RBC) [Entitic vol] 89.5 fL Normal 80-100 [facility] Comment on above: Performed By: #### C MP wRFX A1C, CBC #### [address] Mean Corpuscular HGB Conc 34.8 g/dL Normal 32.0-35.0 [facility] Comment on above: Performed By: #### C MP wRFX A1C, CBC #### [address] Monocytes (Bld) [#/Vol] 0.5 10*3/uL Normal 0.0-0.8 [facility] Comment on above: Performed By: #### C MP wRFX A1C, CBC #### [address] Monocytes/100 WBC (Bld) 5.5 % Normal . [facility] Comment on above: Performed By: #### C MP wRFX A1C, CBC #### [address] Neutrophils (Bld) [#/Vol] 6.1 10*3/uL Normal 1.8-7.7 [facility] Comment on above: Performed By: #### C MP wRFX A1C, CBC #### [address] Neutrophils/100 WBC (Bld) 61.9 % Normal . [facility] Comment on above: Performed By: #### C MP wRFX A1C, CBC #### [address] NRBC% 0.0 /100{WBC} Normal 0-0.5 [facility] Comment on above: Performed By: #### C MP wRFX A1C, CBC #### [address] Platelet mean volume (Bld) [Entitic vol] 9.0 fL Normal 6.3-10.7 [facility] Comment on above: Performed By: #### C MP wRFX A1C, CBC #### [place] [id number] [place] Platelets (Bld) [#/Vol] 297 10*3/uL Normal 150-450 [facility] Comment on above: Performed By: #### C MP wRFX A1C, CBC #### [facility] [address] RBC (Bld) [#/Vol] 4.12 10*6/uL Normal 3.60-5.00 [facility] Comment on above: Performed By: #### C MP wRFX A1C, CBC #### [facility] [address] WBC (Bld) [#/Vol] 9.9 10*3/uL Normal 3.8-11.6 [facility] Comment on above: Performed By: #### C MP wRFX A1C, CBC #### [address] Creatinine [Mass/volume] in Serum or PlasmaOrdered By: Ralph Hoff on 12-26-2024 Creatinine [Mass/Vol] Creatinine [Mass/volume] in Serum or Plasma 0.60-1.20 [facility] ECG 12 lead ECGon 12-26-2024 ECG 12 lead ECG [facility] [place] [address] Electrocardiograph Report Signed Patient: Myrtle Jones MR#: [id number] : 1965 Acct:[id number] Age/Sex: 59 / F ADM Date: 12/26/24 [facility]: [facility]: [facility] Att[facility] Dr: Ralph Hoff DO Ordering Provider: [...] Otherwise normal ECG Confirmed by Domonique Hsieh ([id number]) on 12/27/2024 8:29:59 PM Referred By: Electronically Signed By: Domonique Hsieh Transcribed By: [facility] Signed By Domonqiue Hsieh MD 2029 Normal [facility] Eosinophils Auto (Bld) [#/Vo l]Ordered By: Ralph Hoff on 12-26-2024 Eosinophils (Bld) [#/Vol] Automated eosinophil count 0.0-0.45 [facility] Eosinophils/100 WBC Auto (Bl d)Ordered By: Ralph Hoff on 12-26-2024 Eosinophils/100 WBC (Bld) Automated eosinophil % . [facility] Erythrocyte distribution wid th Auto (RBC) [Ratio]Ordered By: Ralph Hoff on 12-26-2024 Erythrocyte distribution width (RBC) [Ratio] Erythrocyte distribution width [Ratio] by Automated count 11.9-15.3 [facility] Globulin Calc (S) [Mass/Vol] Ordered By: Ralph Hoff on 12-26-2024 Globulin (S) [Mass/Vol] Serum globulin measurement by calculation (mass/volume) [facility] Glucose [Mass/volume] in Ser um or PlasmaOrdered By: Ralph Hoff on 12-26-2024 Glucose [Mass/Vol] Glucose [Mass/volume ] in Serum or Plasma 70-100 [facility] Hematocrit Auto (Bld) [Volum e fraction]Ordered By: Ralph Hoff on 12-26-2024 Hematocrit (Bld) [Volume fraction] Hematocrit [Volume Fraction] of Blood by Automated count 34.0-46.4 [facility] Hemoglobin [Mass/volume] in BloodOrdered By: Ralph Hoff 12-26-2024 Hemoglobin (Bld) [Mass/Vol] Hemoglobin [Mass/volume] in Blood 11.8-15.4 [facility] Leukocytes [#/volume] correc diana for nucleated erythrocytes in Blood by Automated counOrdered By: Ralph Hoff on 12-26-2024 WBC corrected for nucl RBC Auto (Bld) [#/Vol] Leukocytes [#/volume] corrected for nucleated erythrocytes in Blood by Automated coun 3.8-11.6 [facility] Lymphocytes Auto (Bld) [#/Vo l]Ordered By: Ralph Hoff on 12-26-2024 Lymphocytes (Bld) [#/Vol] Lymphocytes [#/volume] in Blood by Automated count 1.00-4.8 [facility] Lymphocytes/100 WBC Auto (Bl d)Ordered By: Ralph Hoff on 12-26-2024 Lymphocytes/100 WBC (Bld) Lymphocytes/100 leukocytes in Blood by Automated count . [facility] MCH Auto (RBC) [Entitic mass ]Ordered By: Ralph Hoff on 12-26-2024 MCH (RBC) [Entitic mass] MCH [Entitic ma ss] by Automated count 24.7-34.3 [facility] MCHC Auto (RBC) [Mass/Vol]Or dered By: Ralph Hoff on 12-26-2024 MCHC (RBC) [Mass/Vol] MCHC [Mass/volume] by Automated count 32.0-35.0 [facility] MCV Auto (RBC) [Entitic vol] Ordered By: Ralph Hoff on 12-26-2024 MCV (RBC) [Entitic vol] MCV [Entitic vol ume] by Automated count 80-100 [facility] Monocytes Auto (Bld) [#/Vol] Ordered By: Ralph Hoff on 12-26-2024 Monocytes (Bld) [#/Vol] Automated blood monocyte count 0.0-0.8 [facility] Monocytes/100 WBC Auto (Bld) Ordered By: Ralph Hoff on 12-26-2024 Monocytes/100 WBC (Bld) Automated monocyte % . [facility] Neutrophils Auto (Bld) [#/Vo l]Ordered By: Ralph Hoff on 12-26-2024 Neutrophils (Bld) [#/Vol] Neutrophils [#/volume] in Blood by Automated count 1.8-7.7 [facility] Neutrophils/100 WBC Auto (Bl d)Ordered By: Ralph Hoff on 12-26-2024 Neutrophils/100 WBC (Bld) Automated neutrophil % . [facility] No Panel InformationOrdered By: Ralph Hoff on 12-26-2024 Estimated GFR (CKD-EPI) > 60.0 mL/Min [facility] Creatinine Clearance (Chem N/A [facility] Nucleated erythrocytes [Pres ence] in Blood by Automated countOrdered By: Ralph Hoff on 12-26-2024 Nucleated RBC Auto Ql (Bld) Nucleated erythrocytes [Presence] in Blood by Automated count 0-0.5 [facility] Platelet mean volume Auto (B ld) [Entitic vol]Ordered By: Ralph Hoff on 12-26-2024 Platelet mean volume (Bld) [Entitic vol] Platelet mean volume [Entitic volume] in Blood by Automated count 6.3-10.7 [facility] Platelets Auto (Bld) [#/Vol] Ordered By: Ralph Hoff on 12-26-2024 Platelets (Bld) [#/Vol] Platelets [#/vol ume] in Blood by Automated count 150-450 [facility] Potassium [Moles/volume] in Serum or PlasmaOrdered By: Ralph Hoff on 12-26-2024 Potassium [Moles/Vol] Potassium [Moles/volume] in Serum or Plasma 3.5-5.1 [facility] Protein [Mass/volume] in Ser um or PlasmaOrdered By: Ralph Hoff on 12-26-2024 Protein [Mass/Vol] Protein [Mass/volume ] in Serum or Plasma 6.4-8.9 [facility] RBC Auto (Bld) [#/Vol]Ordere d By: Ralph Hoff on 12-26-2024 RBC (Bld) [#/Vol] Erythrocytes [#/volume] in Blood by Automated count 3.60-5.00 [facility] Serum or plasma albumin/glob ulin mass ratioOrdered By: Ralph Hoff on 12-26-2024 Albumin/Globulin [Mass ratio] Serum or plasma albumin/globulin mass ratio [facility] Serum or plasma anion gap de terminationOrdered By: Ralph Hoff on 12-26-2024 Anion gap [Moles/Vol] Serum or plasma an ion gap determination 6.0-15.0 [facility] Sodium [Moles/volume] in Ser um or PlasmaOrdered By: Ralph Hoff on 12-26-2024 Sodium [Moles/Vol] Sodium [Moles/volume ] in Serum or Plasma 136-145 [facility] Urea nitrogen [Mass/volume] in Serum or PlasmaOrdered By: Ralph Hoff on 12-26-2024 Urea nitrogen [Mass/Vol] Urea nitrogen [Mass/volume] in Serum or Plasma 05-25 [facility] WBC Auto (Bld) [#/Vol]Ordere d By: Ralph Hoff on 12-26-2024 WBC (Bld) [#/Vol] Leukocytes [#/volume ] in Blood by Automated count 3.8-11.6 [facility] CNPNon 12-07-2024 CNPN Telephone (MNOPRX) MYRTLE JONES ([id number]) 1965 F Date Time Provider Department 12/07/24 SALMA CALLEJAS [facility] During your visit today, we recorded the following information about you: Allergies As of Date: 12/07/2024 Noted Allergy Reaction TOPAMAX (TOPIRAMATE) 05/09/2018 1 - Mental Status Change Date Reviewed: 10/04/2024 Reviewed by: Simona Carlson APRN.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 2-2.0 [facility] Cholesterol in LDL Calc [Mas s/Vol]on 10-21-2024 Cholesterol in LDL [Mass/Vol] Cholesterol in LDL [Mass/volume] in Serum or Plasma by calculation [facility] Comment on above: <100 mg/dl [id number] 0-129 mg/dl NEAR OR ABOVE [id number] mg/dl BORDERLINE [id number] mg/dl HIGH>190 mg/dl VERY HIGH Cholesterol in VLDL Calc [Ma ss/Vol]on 10-21-2024 Cholesterol in VLDL [Mass/Vol] Cholesterol in VLDL [Mass/volume] in Serum or Plasma by calculation [facility] Eosinophils/100 WBC Auto (Bl d)on 10-21-2024 Eosinophils/100 WBC (Bld) Automated eosinophil % Low 0.9-7.0 [facility] Erythrocyte distribution wid th Auto (RBC) [Ratio]on 10-21-2024 Erythrocyte distribution width (RBC) [Ratio] Erythrocyte distribution width [Ratio] by Automated count 11.0-15.0 [facility] Estimated glomerular filtrat ion rate (GFR) non- Americanon 10-21-2024 GFR/1.73 sq M.predicted among non-blacks MDRD (S/P/Bld) [Vol rate/Area] Estimated glomerular filtration rate (GFR) non- Low >=60 mL/min/1.73m 2 [facility] Globulin Calc (S) [Mass/Vol] on 10-21-2024 Globulin (S) [Mass/Vol] Serum globulin measurement by calculation (mass/volume) [facility] Glucose mean value [Mass/vol ume] in Blood Estimated from glycated hemoglobinon 10-21-2024 Average glucose Estimated from glycated hemoglobin (Bld) [Mass/Vol] Glucose mean value [Mass/volume] in Blood Estimated from glycated hemoglobin [facility] Hematocrit Auto (Bld) [Volum e fraction]on 10-21-2024 Hematocrit (Bld) [Volume fraction] Hematocrit [Volume Fraction] of Blood by Automated count 36.0-48.0 [facility] Hemoglobin [Mass/volume] in Bloodon 10-21-2024 Hemoglobin (Bld) [Mass/Vol] Hemoglobin [Mass/volume] in Blood 12.0-16.0 [facility] Laboratory - Chemistry and C hemistry - challengeon 10-21-2024 Albumin [Mass/Vol] 3.9 g/dL 3.4-5.0 [facility] ALP [Catalytic activity/Vol] 46 U/L 46-116 [facility] ALT [Catalytic activity/Vol] 20 U/L 14-59 [facility] AST [Catalytic activity/Vol] 18 U/L 15-37 [facility] Bilirubin [Mass/Vol] 0.7 mg/dL 0.2-1.0 [facility] Calcium [Mass/Vol] 9.2 mg/dL 8.5-10.1 [facility] Chloride [Moles/Vol] 107 mmol/L 98-107 [facility] Cholesterol [Mass/Vol] 196 mg/dL <=200 Fi [facility] Cholesterol in HDL [Mass/Vol] 52 mg/dL 40-60 [facility] Comment on above: > or =60 mg/dl - LOW CARDIOVASCULAR RISK<40 mg/dl - HIGH CARDIOVASCULAR RISK CO2 [Moles/Vol] 29.7 mmol/L 21.0-32.0 [facility] Creatinine [Mass/Vol] 1.04 mg/dL High 0.55-1.02 [facility] GFR/1.73 sq M.predicted MDRD (S/P/Bld) [Vol rate/Area] mL/min/{1.73_m2} >=60 mL/min/1.73m 2 [facility] Glucose [Mass/Vol] 107 mg/dL High 74-106 [facility] Magnesium [Mass/Vol] 2.0 mg/dL 1.8-2.4 [facility] Potassium [Moles/Vol] 4.2 mmol/L 3.5-5.1 [facility] Protein [Mass/Vol] 7.2 g/dL 6.4-8.2 [facility] Sodium [Moles/Vol] 144 mmol/L 136-145 [facility] Triglyceride [Mass/Vol] 149 mg/dL <=150 F [facility] Urate [Mass/Vol] 3.2 mg/dL 2.6-6.0 [facility] Urea nitrogen [Mass/Vol] 25.0 mg/dL High 7.0-18.0 [facility] Urea nitrogen/Creatinine [Mass ratio] 24.0 mg/mg [facility] Bilirubin Ql (U) Negative NEGATIVE [facility] Glucose (U) [Mass/Vol] Negative NEGATIVE [facility] Ketones Ql (U) 15 mg/dL Abnormal NEGATIVE [facility] pH (U) 6.0 [pH] 5.0-9.0 [facility] Specific gravity (U) [Rel density] 1.025 1.005-1.025 [facility] Urobilinogen Qn (U) 0.2 {Tara'U}/dL 0.2-1.0 [facility] Laboratory - Hematology and Cell countson 10-21-2024 HbA1c (Bld) [Mass fraction] 5.6 % 4.5-6.2 [facility] Comment on above: ADA RECOMMENDED LIMI T 4.0 - 6.0ADA THERAPEUTIC TARGET < 7.0ACTION SUGGESTED> 7.0 Immature granulocytes/100 WBC (Bld) 0.2 % 0.0-0.5 [facility] Laboratory - Specimen inform ationon 10-21-2024 Appearance (U) CLEAR CLEAR [facility] Color (U) LT. YELLOW YELLOW [facility] Laboratory - Urinalysison Leukocyte esterase Test strip Ql (U) TRACE Abnormal NEGATIVE [facility] Mucus Ql (Urine sed) NONE SEEN NONE SEEN [facility] Nitrite Ql (U) Negative NEGATIVE [facility] Protein (U) [Mass/Vol] 12.3 mg/dL High <=11.9 [facility] Protein Ql (U) Negative NEG/TRACE [facility] Leukocytes [#/volume] correc diana for nucleated erythrocytes in Blood by Automated counon 10-21-2024 WBC corrected for nucl RBC Auto (Bld) [#/Vol] Leukocytes [#/volume] corrected for nucleated erythrocytes in Blood by Automated coun High 4.0-11.0 [facility] Lymphocytes Auto (Bld) [#/Vo l]on 10-21-2024 Lymphocytes (Bld) [#/Vol] Lymphocytes [#/volume] in Blood by Automated count 1.2-3.8 [facility] Lymphocytes/100 WBC Auto (Bl d)on 10-21-2024 Lymphocytes/100 WBC (Bld) Lymphocytes/100 leukocytes in Blood by Automated count 20.5-60.0 [facility] MCH Auto (RBC) [Entitic mass ]on 10-21-2024 MCH (RBC) [Entitic mass] MCH [Entitic ma ss] by Automated count 26.7-34.0 [facility] MCHC Auto (RBC) [Mass/Vol]on 10-21-2024 MCHC (RBC) [Mass/Vol] MCHC [Mass/volume] by Automated count 29.9-35.2 [facility] MCV Auto (RBC) [Entitic vol] on 10-21-2024 MCV (RBC) [Entitic vol] MCV [Entitic vol ume] by Automated count 81.0-99.0 [facility] Monocytes Auto (Bld) [#/Vol] on 10-21-2024 Monocytes (Bld) [#/Vol] Automated blood monocyte count 0.3-0.8 [facility] Monocytes/100 WBC Auto (Bld) on 10-21-2024 Monocytes/100 WBC (Bld) Automated monocyte % 1. 7-12.0 [facility] Neutrophils Auto (Bld) [#/Vo l]on 10-21-2024 Neutrophils (Bld) [#/Vol] Neutrophils [#/volume] in Blood by Automated count High 1.4-6.5 [facility] Neutrophils/100 WBC Auto (Bl d)on 10-21-2024 Neutrophils/100 WBC (Bld) Automated neutrophil % 43.0-75.0 [facility] No Panel Informationon 10-21 25-Hydroxy Vitamin D Total 102.0 ng/mL [facility] Comment on above: <20 ng/mL Vit D defi cient20-<30 ng/mL Vit D qncuklfocdsi00-216 ng/mL Vit D sufficient>100 ng/mL Potential Toxicity Eosinophils # (Auto) 0.0 10 3/uL 0.0-0.7 [facility] Immature Granulocyte # (Auto) 0.02 10 3/uL 0.00-0.03 [facility] Parathyroid Hormone (Intact) 22 pg/mL 15-65 [facility] Comment on above: Performed at: - [facility] [address] [id number] Director: Adam Layton PhD, Phone: [phone] Phosphorus Level 3.5 mg/dL 2.6-4.7 [facility] Urine Bacteria NONE SEEN #/HPF NONE SEEN [facility] Urine Occult Blood Negative NEGATIVE [facility] Urine Random Creatinine 119.04 mg/dL 20.00-300. 00 [facility] Urine RBC NONE SEEN #/HPF 0-2 [facility] Urine Squamous Epithelial Cells FEW #/LPF Abnormal NONE/RARE [facility] Urine WBC 0-2 #/HPF Abnormal NONE SEEN [facility] Platelet mean volume Auto (B ld) [Entitic vol]on 10-21-2024 Platelet mean volume (Bld) [Entitic vol] Platelet mean volume [Entitic volume] in Blood by Automated count 9.5-13.5 [facility] Platelets Auto (Bld) [#/Vol] on 10-21-2024 Platelets (Bld) [#/Vol] Platelets [#/vol ume] in Blood by Automated count 150-450 [facility] RBC Auto (Bld) [#/Vol]on RBC (Bld) [#/Vol] Erythrocytes [#/volume] in Blood by Automated count 4.20-5.40 [facility] Serum or plasma albumin/glob ulin mass ratioon 10-21-2024 Albumin/Globulin [Mass ratio] Serum or plasma albumin/globulin mass ratio [facility] Serum or plasma anion gap de terminationon 10-21-2024 Anion gap [Moles/Vol] Serum or plasma an ion gap determination [facility] Serum or plasma total choles terol/high density lipoprotein (HDL) cholesterol mass blanca 10-21-2024 Cholesterol.total/Choles terol in HDL [Mass ratio] Serum or plasma total cholesterol/high density lipoprotein (HDL) cholesterol mass rat [facility] Comment on above: 3.3 - 4.4 LOW RISK4. 4 - 7.1 AVERAGE RISK7.1 - 11.0 MODERATE RISK>11.0 HIGH RISK Urine protein/creatinine rat ioon 10-21-2024 Protein/Creatinine (U) [Ratio] Urine protein/creatinine ratio [facility] XR shoulder LT min 2V*on XR shoulder LT min 2V* [facility] [address] [place] [address] XRay Report Signed Patient: Myrtle Jones MR#: [id number] : 1965 Acct:[id number] Age/Sex: 59 / F ADM Date: 10/19/24 Loc: [facility] Room: [facility] Attending Dr: Ralph Hoff DO Copies [...] PROCESS. Impression dictated by: Juan Wilkerson Jr., D.O.10/19/2024 10:42 AM Dictation Location: [facility]- Transcribed By: [facility] 10/19/24 1042 Dictated By: Juan Wilkerson Jr, DO 10/19/24 1041 Signed By: 10/19/24 1042 Normal [facility] MR SHOULDER LEFT WO IV [...] Hahn DO Normal Not Available Chas 10-11-2024 CNPN Telephone ([facility]) SORAYAMYRTLE ([id number]) 1965 F Date Time Provider Department 10/11/24 JACY CUEVA [facility]OP[facility] During your visit today, we recorded the following information about you: Jacy Cueva 10/11/2024 11:52 AM Signed Ambulatory Pharmacy Prior Authorization Note Provider Intervention Required?: No- Pharmacy completed on your behalf. Rx Plan: Other: [facility] Drug: NURTEC ODT 75 mg disintegrating tablet Cover My Meds Palafox: Done via Epic Determination: Approved Prior Authorization/Case #: [id number] Prior Authorization Expiration: 10/10/2025 Time to PA [...] refills. Prescriptions will now be processed through [facility] for determination of next steps. For questions relating to this submission, please contact [facility] at [phone] Allergies As of Date: 10/11/2024 Noted Allergy Reaction TOPAMAX (TOPIRAMATE) 05/09/2018 1 - Mental Status Change Date Reviewed: 10/04/2024 Reviewed by: Simona Carlson APRN.ROADS AND PARKING [employer]S SWEEPER OPERATOR - Fully Assessed Reason for Visit: Insurance Authorization [0993] Cmt: NURTEC ODT 75 mg disintegrating tablet [...] Encounter Status:Closed by JACY CUEVA on 10/11/24 [facility] CNOVon 10-04-2024 CNOV Office Visit ([facility]) MYRTLE JONES ([id number]) 1965 F Date Time Provider Department 10/04/24 4:00 PM SIMONA CARLSON [facility] During your visit today, we recorded the following information about you: Pulse Blood pressure Weight Height 74/minute 130/72 70 kg 1.702 m Simona Carlson, GHISLAINE.ROADS AND PARKING LOTS SWEEPER OPERATOR 10/04/2024 4:27 PM Signed [facility] [...] Analgesic Butalbital/acetaminop hen/caffeine (Fioricet) Hydrocodone/Acetamino phen (Vicodin, [place]) Anti-Convulsant Topiramate (Topamax, Trokendi XL, Qudexy) Anti-Depressant [...] these with the patient: Yes, Simona Carlson APRN.ROADS AND PARKING LOTS SWEEPER OPERATOR HEADACHE SCORES: 11/22/2023 03/22/2024 10/01/2024 Headache [...] nausea: 8 (more content not included)... Normal [facility] MM screening mammo BI w/CADo n 08-18-2024 MM screening mammo BI w/CAD [facility] [place] [address] Mammography Report Signed Patient: Myrtle Jones MR#: [id number] : 1965 Acct:[id number] Age/Sex: 59 / F ADM Date: 08/18/24 Loc: [place] Room: [facility] Attending Dr: Anand Garcia DO Copies [...] Glendy Martínez M.D.08/18/2024 3:43 PM Dictation Location: [facility] Transcribed By: [facility] 08/18/24 1543 Dictated By: Glendy Martínez MD 08/18/24 1536 Signed By: 08/18/24 1543 Normal [facility] 07-20-2024 CNPN Telephone ([facility]) MYRTLE JONES ([id number]) 1965 F Date Time Provider Department 07/20/24 SALMA CALLEJAS MNOPRX During your visit today, we recorded the following information about you: Salma Callejas RN 07/20/2024 4:56 PM Signed [facility] received prescription(s) for Qulipta 60MG tablets . Benefits investigation was conducted, indicating that a prior authorization is required. PA was initiated and pending review through [employer]. All pertinent clinical information was submitted to insurance. PA done via: [facility] [id number] Salma Callejas RN [facility] P: , F: Salma Callejas RN 07/24/2024 8:58 AM Signed Ambulatory Pharmacy Prior Authorization Note Provider Intervention Required?: No- Pharmacy completed on your behalf. Rx Plan: Other: [facility] Drug: Qulipta 60MG tablets Cover My Meds Palafox: [id number] Determination: Approved Prior Authorization/Case #: [id number] Prior Authorization Expiration: 07/20/2025 Time to PA [...] refills. Prescriptions will now be processed through [facility] for determination of next steps. For questions relating to this submission, please contact [facility] at [phone] Allergies As of Date: 07/20/2024 Noted Allergy Reaction TOPAMAX (TOPIRAMATE) 05/09/2018 1 - Mental Status Change Date Reviewed: 03/29/2024 Reviewed by: Simona Carlson APRN.ROADS AND PARKING [employer] SWEEPER OPERATOR - Fully Assessed Reason for Visit: Insurance Authorization [[id number]] Qulipta 60MG tablets [Other] Prescriptions as of [...] Status:Closed by SALMA CALLEJAS on 07/24/24 Normal [facility] Basophils Auto (Bld) [#/Vol] on 06-03-2024 Basophils (Bld) [#/Vol] 0.1 10 3/uL 0.0-0.1 [facility] Basophils/100 WBC Auto (Bld) on 06-03-2024 Basophils/100 WBC (Bld) 0.7 % 0.2-2.0 F [facility] Cholesterol in LDL Calc [Mas s/Vol]on 06-03-2024 Cholesterol in LDL [Mass/Vol] 95.0 mg/dL [facility] Comment on above: <100 mg/dl HCWOEPD36 0-129 mg/dl NEAR OR ABOVE SGOHHCP582-271 mg/dl BORDERLINE GIVH979-605 mg/dl HIGH>190 mg/dl VERY HIGH Cholesterol in VLDL Calc [Ma ss/Vol]on 06-03-2024 Cholesterol in VLDL [Mass/Vol] 33.2 mg/dL [facility] Eosinophils/100 WBC Auto (Bl d)on 06-03-2024 Eosinophils/100 WBC (Bld) 0.0 % Low 0.9-7.0 [facility] Erythrocyte distribution wid th Auto (RBC) [Ratio]on 06-03-2024 Erythrocyte distribution width (RBC) [Ratio] 12.2 % 11.0-15.0 [facility] Estimated glomerular filtrat ion rate (GFR) non- Americanon 06-03-2024 GFR/1.73 sq M.predicted among non-blacks MDRD (S/P/Bld) [Vol rate/Area] 52 mL/min/{1.73_m2} Low >=60 [facility] Globulin Calc (S) [Mass/Vol] on 06-03-2024 Globulin (S) [Mass/Vol] 3.0 g/dL [facility] Glucose mean value [Mass/vol ume] in Blood Estimated from glycated hemoglobinon 06-03-2024 Average glucose Estimated from glycated hemoglobin (Bld) [Mass/Vol] 103 mg/dL [facility] Hematocrit Auto (Bld) [Volum e fraction]on 06-03-2024 Hematocrit (Bld) [Volume fraction] 36.6 % 36.0-48.0 [facility] Hemoglobin [Mass/volume] in Bloodon 06-03-2024 Hemoglobin (Bld) [Mass/Vol] 12.5 g/dL 12.0-16.0 [facility] Laboratory - Chemistry and C hemistry - challengeon 06-03-2024 Albumin [Mass/Vol] 3.5 g/dL 3.4-5.0 [facility] ALP [Catalytic activity/Vol] 52 U/L 46-116 [facility] ALT [Catalytic activity/Vol] 17 U/L 14-59 [facility] AST [Catalytic activity/Vol] 9 U/L Low 15-37 [facility] Bilirubin [Mass/Vol] 0.6 mg/dL 0.2-1.0 [facility] Calcium [Mass/Vol] 8.9 mg/dL 8.5-10.1 [facility] Chloride [Moles/Vol] 107 mmol/L 98-107 [facility] Cholesterol [Mass/Vol] 172 mg/dL <=200 Fi [facility] Cholesterol in HDL [Mass/Vol] 44 mg/dL 40-60 [facility] Comment on above: > or =60 mg/dl - LOW CARDIOVASCULAR RISK<40 mg/dl - HIGH CARDIOVASCULAR RISK CO2 [Moles/Vol] 26.6 mmol/L 21.0-32.0 [facility] Creatinine [Mass/Vol] 1.09 mg/dL High 0.55-1.02 [facility] GFR/1.73 sq M.predicted MDRD (S/P/Bld) [Vol rate/Area] mL/min/{1.73_m2} >=60 [facility] Glucose [Mass/Vol] 105 mg/dL 74-106 [facility] Potassium [Moles/Vol] 3.9 mmol/L 3.5-5.1 Fir [facility] Protein [Mass/Vol] 6.5 g/dL 6.4-8.2 [facility] Sodium [Moles/Vol] 143 mmol/L 136-145 [facility] Triglyceride [Mass/Vol] 166 mg/dL High <=150 F [facility] TSH Qn 1.566 m[IU]/L 0.358-3.740 [facility] Urea nitrogen [Mass/Vol] 21.0 mg/dL High 7.0-18.0 [facility] Urea nitrogen/Creatinine [Mass ratio] 19.3 mg/mg [facility] Laboratory - Hematology and Cell countson 06-03-2024 HbA1c (Bld) [Mass fraction] 5.2 % 4.5-6.2 [facility] Comment on above: ADA RECOMMENDED LIMI T 4.0 - 6.0ADA THERAPEUTIC TARGET < 7.0ACTION SUGGESTED> 7.0 Immature granulocytes/100 WBC (Bld) 0.1 % 0.0-0.5 [facility] Leukocytes [#/volume] correc diana for nucleated erythrocytes in Blood by Automated counon 06-03-2024 WBC corrected for nucl RBC Auto (Bld) [#/Vol] 7.0 10 3/uL 4.0-11.0 [facility] Lymphocytes Auto (Bld) [#/Vo l]on 06-03-2024 Lymphocytes (Bld) [#/Vol] 2.3 10 3/uL 1.2-3.8 [facility] Lymphocytes/100 WBC Auto (Bl d)on 06-03-2024 Lymphocytes/100 WBC (Bld) 33.5 % 20.5-60.0 [facility] MCH Auto (RBC) [Entitic mass ]on 06-03-2024 MCH (RBC) [Entitic mass] 30.7 pg 26.7-34.0 [facility] MCHC Auto (RBC) [Mass/Vol]on 06-03-2024 MCHC (RBC) [Mass/Vol] 34.2 g/dL 29.9-35.2 [facility] MCV Auto (RBC) [Entitic vol] on 06-03-2024 MCV (RBC) [Entitic vol] 89.9 fL 81.0-99.0 F [facility] Monocytes Auto (Bld) [#/Vol] on 06-03-2024 Monocytes (Bld) [#/Vol] 0.5 10 3/uL 0.3-0.8 [facility] Monocytes/100 WBC Auto (Bld) on 06-03-2024 Monocytes/100 WBC (Bld) 7.3 % 1.7-12.0 F [facility] Neutrophils Auto (Bld) [#/Vo l]on 06-03-2024 Neutrophils (Bld) [#/Vol] 4.1 10 3/uL 1.4-6.5 [facility] Neutrophils/100 WBC Auto (Bl d)on 06-03-2024 Neutrophils/100 WBC (Bld) 58.4 % 43.0-75.0 [facility] No Panel Informationon 06-03 Eosinophils # (Auto) 0.0 10 3/uL 0.0-0.7 [facility] Immature Granulocyte # (Auto) 0.01 10 3/uL 0.00-0.03 [facility] Platelet mean volume Auto (B ld) [Entitic vol]on 06-03-2024 Platelet mean volume (Bld) [Entitic vol] 10.3 fL 9.5-13.5 [facility] Platelets Auto (Bld) [#/Vol] on 06-03-2024 Platelets (Bld) [#/Vol] 266 10 3/uL 150-450 [facility] RBC Auto (Bld) [#/Vol]on RBC (Bld) [#/Vol] 4.07 10 6/uL Low 4.20-5.40 [facility] Serum or plasma albumin/glob ulin mass ratioon 06-03-2024 Albumin/Globulin [Mass ratio] 1.2 {ratio} [facility] Serum or plasma anion gap de terminationon 06-03-2024 Anion gap [Moles/Vol] 13.3 mmol/L [facility] Serum or plasma total choles terol/high density lipoprotein (HDL) cholesterol mass blanca 06-03-2024 Cholesterol.total/Choles terol in HDL [Mass ratio] 3.9 {ratio} [facility] Comment on above: 3.3 - 4.4 LOW RISK4. 4 - 7.1 AVERAGE RISK7.1 - 11.0 MODERATE RISK>11.0 HIGH RISK [facility] 03-03-2024 [facility] HNO ID: [id number] Author: ELO DUNAWAY MRI Tech Service: Radiology Author Type: Dermatology Technician Type: Allied Health Filed: 03/03/2024 12:43 Note [...] PATIENT PRESENTS WITH AN IMPLANTABLE OR ATTACHED C SOFTWARE ENGINEER: No RADIOLOGY DEPARTMENT: MR; Exam(s) Completed: Head: Routine Brain Hoh of [place] MRA PERIPHERAL IV DATA: Not applicable SIGNED BY: WILBUR Jansen Tech March 03, 2024 12:42 PM [facility] MR Brain WO contraston 03-03 * * *Final Report* * * DATE OF EXAM: Mar 03 2024 12:57PM [facility] 0294 - MRI BRAIN WO IVCON / PROCEDURE REASON: multiple diagnoses * * * * Physician Interpretation * * * * EXAMINATION: MRA BRAIN WO IVCON, MRI BRAIN WO IVCON CLINICAL HISTORY: [place] headache Dissection of vertebral artery (HCC) TECHNIQUE: Routine noncontrast MRI brain protocol including diffusion and gradient echo images. Intracranial 3D [id number] MRA with post-processing performed at the modality [...] PICA, normal variant. Basilar artery is patent. personal development educator are patent without high-grade luminal narrowing. [facility] Provider, [facility] - 03/03/2024 * * *Final Report* * * DATE OF EXAM: Mar 03 2024 12:57PM [facility] 0294 - MRI BRAIN WO IVCON / PROCEDURE REASON: multiple diagnoses * * * * Physician Interpretation * * * * EXAMINATION: MRA BRAIN WO IVCON, MRI BRAIN WO IVCON CLINICAL HISTORY: [place] headache Dissection of vertebral artery (HCC) TECHNIQUE: Routine noncontrast MRI brain protocol including diffusion and gradient echo images. Intracranial 3D [id number]-[id number] MRA with post-processing performed at the modality [...] PICA, normal variant. Basilar artery is patent. personal development educator are patent without high-grade luminal narrowing. IMPRESSION IMPRESSION: No acute intracranial abnormality including no evidence of an acute or recent brain parenchymal infarct. Patent intracranial cerebral arterial circulation by MRA. 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 Date/Time: Mar 03 2024 1:06P Dictated by : ROSANA SANCHEZ DO This examination was interpreted and the report reviewed and electronically signed by: ROSANA SANCEHZ DO on Mar 03 2024 1:11PM [facility] MRA BRAIN WO IVCONon 03-03-2 024 MRA BRAIN WO IVCON * * *Final Report* * * DATE OF EXAM: Mar 03 2024 12:57PM [facility] 0272 - MRA BRAIN WO IVCON / PROCEDURE REASON: multiple diagnoses * * * * Physician Interpretation * * * * EXAMINATION: MRA BRAIN WO IVCON, MRI BRAIN WO IVCON CLINICAL HISTORY: Thunderclap headache Dissection of vertebral artery (HCC) TECHNIQUE: Routine noncontrast MRI brain protocol including diffusion and gradient echo images. Intracranial 3D ucgx-ji-hrenqf MRA with post-processing performed at the modality [...] PICA, normal variant. Basilar artery is patent. personal development educator are patent without high-grade luminal narrowing. IMPRESSION: No acute intracranial abnormality including no evidence of an acute or recent brain parenchymal infarct. Patent intracranial cerebral arterial circulation by MRA. 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 Date/Time: Mar 03 2024 1:06P Dictated by : ROSANA SANCHEZ DO This examination was interpreted and the report reviewed and electronically signed by: ROSANA SANCHEZ DO on Mar 03 2024 1:11PM EST [id number] Normal [facility] MRA Head vessels WO contrast on 03-03-2024 * * *Final Report* * * DATE OF EXAM: Mar 03 2024 12:57PM [facility] 0272 - MRA BRAIN WO IVCON / PROCEDURE REASON: multiple diagnoses * * * * Physician Interpretation * * * * EXAMINATION: MRA BRAIN WO IVCON, MRI BRAIN WO IVCON CLINICAL HISTORY: Thunderclap headache Dissection of vertebral artery (HCC) TECHNIQUE: Routine noncontrast MRI brain protocol including diffusion and gradient echo images. Intracranial 3D owxb-fe-dbjeky MRA with post-processing performed at the modality [...] PICA, normal variant. Basilar artery is patent. personal development educator are patent without high-grade luminal narrowing. [facility] Provider, [facility] - 03/03/2024 * * *Final Report* * * DATE OF EXAM: Mar 03 2024 12:57PM [facility] 0272 - MRA BRAIN WO IVCON / PROCEDURE REASON: multiple diagnoses * * * * Physician Interpretation * * * * EXAMINATION: MRA BRAIN WO IVCON, MRI BRAIN WO IVCON CLINICAL HISTORY: Thunderclap headache Dissection of vertebral artery (HCC) TECHNIQUE: Routine noncontrast MRI brain protocol including diffusion and gradient echo images. Intracranial 3D fscd-km-xamzlf MRA with post-processing performed at the modality [...] PICA, normal variant. Basilar artery is patent. personal development educator are patent without high-grade luminal narrowing. IMPRESSION IMPRESSION: No acute intracranial abnormality including no evidence of an acute or recent brain parenchymal infarct. Patent intracranial cerebral arterial circulation by MRA. Warehouse Technician: [facility] Transcribe Date/Time: Mar 03 2024 1:06P Dictated by : ROSANA SANCHEZ DO This examination was interpreted and the report reviewed and electronically signed by: ROSANA SANCHEZ DO on Mar 03 2024 1:11PM [facility] MRI BRAIN WO IVCONon 03-03- 024 MRI BRAIN WO IVCON * * *Final Report* * * DATE OF EXAM: Mar 03 2024 12:57PM [facility] 0294 - MRI BRAIN WO IVCON / PROCEDURE REASON: multiple diagnoses * * * * Physician Interpretation * * * * EXAMINATION: MRA BRAIN WO IVCON, MRI BRAIN WO IVCON CLINICAL HISTORY: Thunderclap headache Dissection of vertebral artery (HCC) TECHNIQUE: Routine noncontrast MRI brain protocol including diffusion and gradient echo images. Intracranial 3D halm-no-qubcjk MRA with post-processing performed at the modality [...] PICA, normal variant. Basilar artery is patent. personal development educator are patent without high-grade luminal narrowing. IMPRESSION: No acute intracranial abnormality including no evidence of an acute or recent brain parenchymal infarct. Patent intracranial cerebral arterial circulation by MRA. 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 Date/Time: Mar 03 2024 1:06P Dictated by : ROSANA SANCHEZ DO This examination was interpreted and the report reviewed and electronically signed by: ROSANA SANCHEZ DO on Mar 03 2024 1:11PM EST [id number] N Normal [facility] No Panel Informationon 03-03 IMPRESSION: No acute intracranial abnormality including no evidence of an acute or recent brain parenchymal infarct. Patent intracranial cerebral arterial circulation by MRA. 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 Date/Time: Mar 03 2024 1:06P Dictated by : ROSANA SANCHEZ DO This examination was interpreted and the report reviewed and electronically signed by: ROSANA SANCHEZ DO on Mar 03 2024 1:11PM [facility] Radiology Study observation (narrative) Oskar [facility] No Panel InformationOrdered By: Ccf Provider on 03-03-2024 [facility] CNPNon 03-02-2024 CNPN Telephone (RGFV) MYRTLE JONES ([id number]) 1965 F Date Time Provider Department 03/02/24 DEB JERNIGAN [facility] During your visit today, we recorded the [...] migrainosus [G43.901] 11/26/2023 Encounter Status:Closed by DEB JERNGIAN on 03/02/24 [facility] PTH INTACTon 01-04-2023 PTH, Intact 27 pg/mL Normal 15-65 [facility] Comment on above: Performed By: #### P THINT #### [facility] [address] [place] [address] Dr. Angus Hernandez HEMOGLOBIN AND HEMATOCRITon 01-02-2023 Hematocrit (Bld) [Volume fraction] 37.2 % Normal 36.0-48.0 [facility] Comment on above: Performed By: #### H GBHCT #### [facility] [address] [address] [address] Angus Hernandez Hemoglobin (Bld) [Mass/Vol] 12.9 g/dL Normal 12.0-16.0 [facility] Comment on above: Performed By: #### H GBHCT #### [facility] [address] [place] [address] Dr. Angus Hernandez HEMOGRAM AND PLATELon 2022 Hematocrit (Bld) [Volume fraction] 37.2 % Normal 36.0-48.0 [facility] Comment on above: Performed By: #### P THINT #### [facility] [address] [place] [address] Dr. Angus Hernandez Hemoglobin (Bld) [Mass/Vol] 12.9 g/dL Normal 12.0-16.0 [facility] Comment on above: Performed By: #### P THINT #### [facility] [address] [place] [address] Dr. Angus Hernandez MCH (RBC) [Entitic mass] 29.6 pg Normal 26.7-34.0 [facility] Comment on above: Performed By: #### P THINT #### [facility] [address] [place] [address] Dr. Angus Hernandez MCHC (RBC) [Mass/Vol] 32.2 g/dL Normal 29.9-35.2 [facility] Comment on above: Performed By: #### P THINT #### [facility] [address] [place] [address] Dr. Angus Hernandez MCV (RBC) [Entitic vol] 91.7 fL Normal 81.0-99.0 [facility] Comment on above: Performed By: #### P THINT #### [facility] [address] [place] [address] Dr. Angus Hernandez PLT 294 103/ul Normal 150-450 [facility] Comment on above: Performed By: #### P THINT #### [facility] [address] [place] [address] Dr. Angus Hernandez RBC 4.33 106/ul Normal 4.20-5.40 [facility] Comment on above: Performed By: #### P THINT #### [facility] [address] [place] [address] Dr. Angus Hernandez WBC 6.8 103/ul Normal 4.0-11.0 [facility] Comment on above: Performed By: #### P THINT #### [facility] [address] [address] [address] Angus Hernandez MAGNESIUMon 01-02-2023 Magnesium [Mass/Vol] 1.6 mg/dL Critically low 1.8-2.4 [facility] Comment on above: Performed By: #### H H #### [facility] [address] [place] [address] Dr. Angus Hernandez RENAL FUNCTION PANELon 01-02 Albumin [Mass/Vol] 3.9 g/dL Normal 3.4-5.0 [facility] Comment on above: Performed By: #### H H #### [facility] [address] [place] [address] Dr. Angus Hernandez Calcium [Mass/Vol] 8.9 mg/dL Normal 8.5-10.1 [facility] Comment on above: Performed By: #### H H #### [facility] [address] [place] [address] Dr. Angus Hernandez Chloride [Moles/Vol] 110 mmol/L Critically high 98-107 [facility] Comment on above: Performed By: #### H H #### [facility] [address] [place] [address] Dr. Angus Hernandez CO2 [Moles/Vol] 24.1 mmol/L Normal 21.0-32.0 [facility] Comment on above: Performed By: #### H H #### [facility] [address] [place] [address] Dr. Angus Hernandez Creatinine [Mass/Vol] 1.16 mg/dL Critically high 0.55-1.02 [facility] Comment on above: Performed By: #### H H #### [facility] [address] [place] [address] Dr. Angus Hernandez EGFR-AF LIBYAN 59 mL/min/1.73m2 Critically low >=60 [facility] Comment on above: Performed By: #### H H #### [facility] [address] [place] [address] Dr. Angus Hernandez EGFR-NON AF LIBYAN 49 mL/min/1.73m2 Critically low >=60 [facility] Comment on above: Performed By: #### H H #### [facility] [address] [address] [address] Angus Hernandez Glucose [Mass/Vol] 108 mg/dL Critically high 74-106 [facility] Comment on above: Performed By: #### H H #### [facility] [address] [address] [address] Angus Hernandez Phosphate [Mass/Vol] 3.4 mg/dL Normal 2.6-4.7 [facility] Comment on above: Performed By: #### H H #### [facility] [address] [place] [address] Dr. Angus Hernandez Potassium [Moles/Vol] 4.4 mmol/L Normal 3.5-5.1 [facility] Comment on above: Performed By: #### H H #### [facility] [address] [address] [address] Angus Hernandez Sodium [Moles/Vol] 146 mmol/L Critically high 136-145 [facility] Comment on above: Performed By: #### H H #### [facility] [address] [address] [address] Angus Hernandez Urea nitrogen [Mass/Vol] 17.0 mg/dL Normal 7.0-18.0 [facility] Comment on above: Performed By: #### H H #### [facility] [address] [place] [address] Dr. Angus Hernandez UA RANDOM W/MICROSCOPICon BACTERIA NONE SEEN Normal NONE SEEN [facility] Comment on above: Performed By: #### U AMIC #### [facility] [address] [address] [address] Angus Hernandez Bilirubin Ql (U) Negative Normal NEGATIVE [facility] Comment on above: Performed By: #### U AMIC #### [facility] [address] [place] [address] Dr. Angus Hernandez CAST NONE SEEN Normal NONE SEEN [facility] Comment on above: Performed By: #### U AMIC #### [facility] [address] [address] [address] Angus Hernandez Clarity (U) CLEAR Normal CLEAR [facility] Comment on above: Performed By: #### U AMIC #### [facility] [address] [address] [address] Angus Hernandez Color (U) LT. YELLOW Normal YELLOW [facility] Comment on above: Performed By: #### U AMIC #### [facility] [address] [address] [address] Angus Hernandez Crystals LM Nom (Urine sed) NONE SEEN Normal NONE SEEN [facility] Comment on above: Performed By: #### U AMIC #### [facility] [address] [place] [address] Dr. Angus Hernandez Epithelial cells LM Ql (Urine sed) FEW Abnormal NONE SEEN /RARE [facility] Comment on above: Performed By: #### U AMIC #### [facility] [address] [place] [address] Dr. Angus Hernandez Glucose Ql (U) Negative Normal NEGATIVE [facility] Comment on above: Performed By: #### U AMIC #### [facility] [address] [address] [address] Angus Hernandez Hemoglobin Ql (U) Negative Normal NEGATIVE [facility] Comment on above: Performed By: #### U AMIC #### [facility] [address] [address] [address] Angus Hernandez Ketones Ql (U) Negative Normal NEGATIVE [facility] Comment on above: Performed By: #### U AMIC #### [facility] [address] [address] [address] Angus Hernandez LEUKOCYTES Negative Normal NEGATIVE [facility] Comment on above: Performed By: #### U AMIC #### [facility] [address] [address] [address] Angus Hernandez MUCOUS MODERATE Abnormal NONE SEEN [facility] Comment on above: Performed By: #### U AMIC #### [facility] [address] [place] [address] Dr. Angus Hernandez Nitrite Ql (U) Negative Normal NEGATIVE [facility] Comment on above: Performed By: #### U AMIC #### [facility] [address] [place] [address] Dr. Angus Hernandez pH (U) 5.5 [pH] Normal 5-9 [facility] Comment on above: Performed By: #### U AMIC #### [facility] [address] [place] [address] Dr. Angus Hernandez RBC NONE SEEN Abnormal 0-2 [facility] Comment on above: Performed By: #### U AMIC #### [facility] [address] [place] [address] Dr. Angus Hernandez SPEC GRAVITY 1.025 Normal 1.005-<=1.02 5 [facility] Comment on above: Performed By: #### U AMIC #### [facility] [address] [place] [address] Dr. Angus Hernandez UA PROTEIN Negative Normal NEGATIVE/ TRACE [facility] Comment on above: Performed By: #### U AMIC #### [facility] [address] [place] [address] Dr. Angus Hernandez Urobilinogen Qn (U) 0.2 {Tara'U}/dL Normal 0.2 - 1. 0 [facility] Comment on above: Performed By: #### U AMIC #### [facility] [address] [place] [address] Dr. Angus Hernandez WBC NONE SEEN Normal NONE SEEN [facility] Comment on above: Performed By: #### U AMIC #### [facility] [address] [place] [address] Dr. Angus Hernandez URIC ACID SERUMon 01-02-2023 Urate [Mass/Vol] 4.7 mg/dL Normal 2.6-6.0 [facility] Comment on above: Performed By: #### H H #### [facility] [address] [place] [address] Dr. Angus Hernandez URINE T PROTEIN CREAT RATIOo n 01-02-2023 Protein (U) [Mass/Vol] 10.4 mg/dL Normal <=12.0 Th e [facility] Comment on above: Performed By: #### H GBHCT #### [facility] [address] [address] [address] Angus Hernandez UR PROT CREAT RAT 0.08 Normal [facility] Comment on above: Performed By: #### H GBHCT #### [facility] [address] [address] [address] Angus Hernandez URINE CREAT 131.12 mg/dL Normal 20.00-300.00 [facility] Comment on above: Performed By: #### H GBHCT #### [facility] [address] [address] [address] Angus Hernandez VITAMIN D 25 OHon 01-02-2023 VIT D 25-OH 115.2 ng/mL Normal [facility] Comment on above: Performed By: #### H GBHCT #### [facility] [address] [address] [address] Angus Hernandez VIT D RANGES SEE BELOW Normal [facility] Comment on above: Result Comment: <20 ng/mL Vit D deficient 20 - <30 ng/mL Vit D insufficient 30 - 100 ng/mL Vit D sufficient >100 ng/mL Potential Toxicity Performed By: #### H GBHCT #### [facility] [address] [address] [address] Angus Hernandez MR Cervical spine WO contras ton 11-16-2022 IMPRESSION: Postoperative and spondylotic changes without high-grade bony canal or foraminal compromise, as detailed. Anatomic Variant: None. Assume 7 cervical vertebrae with counting from the craniocervical junction. 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 [facility] Provider, [facility] - 11/16/2022 * * *Final Report* * [...] vertebrae with counting from the craniocervical junction. 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 Date/Time: Nov 16 2022 11:21A Dictated by : ROSANA FUNK MD This examination was interpreted and the report reviewed and electronically signed by: ROSANA FUNK MD on Nov 16 2022 11:31AM EST [facility] Study observation (narrative) Oskar Ferguson MR Cervical spine WO contras tOrdered By: Ccf Provider on 11-16-2022 [facility] CBC AUTO DIFFon 11-14-2022 BASO # 0.0 103/ul Normal 0.0-0.1 [facility] Comment on above: Performed By: #### H GBHCT #### [facility] [address] [place] [address] Dr. Angus Hernandez Basophils/100 WBC (Bld) 0.5 % Normal 0.2-2.0 [facility] Comment on above: Performed By: #### H GBHCT #### [facility] [address] [place] [address] Dr. Angus Hernandez EO # 0.0 103/ul Normal 0.0-0.7 [facility] Comment on above: Performed By: #### H GBHCT #### [facility] [address] [place] [address] Dr. Angus Hernandez Eosinophils/100 WBC (Bld) 0.0 % Critically low 0.9-7.0 [facility] Comment on above: Performed By: #### H GBHCT #### [facility] [address] [place] [address] Dr. Angus Hernandez Erythrocyte distribution width (RBC) [Ratio] 12.7 % Normal 11.0-15.0 [facility] Comment on above: Performed By: #### H GBHCT #### [facility] [address] [place] [address] Dr. Angus Hernandez Hematocrit (Bld) [Volume fraction] 38.1 % Normal 36.0-48.0 [facility] Comment on above: Performed By: #### H GBHCT #### [facility] [address] [place] [address] Dr. Angus Hernandez Hemoglobin (Bld) [Mass/Vol] 13.1 g/dL Normal 12.0-16.0 [facility] Comment on above: Performed By: #### H GBHCT #### [facility] [address] [place] [address] Dr. Angus Hernandez IG # 0.02 10e3/ul Normal 0.00-0.03 [facility] Comment on above: Performed By: #### H GBHCT #### [facility] [address] [place] [address] Dr. Angus Hernandez IG % 0.3 % Normal 0.0-0.5 [facility] Comment on above: Performed By: #### H GBHCT #### [facility] [address] [address] [address] Angus Hernandez LYMPH # 2.8 103/ul Normal 1.2-3.8 [facility] Comment on above: Performed By: #### H GBHCT #### [facility] [address] [address] [address] Angus Hernandez Lymphocytes/100 WBC (Bld) 36.3 % Normal 20.5-60.0 [facility] Comment on above: Performed By: #### H GBHCT #### [facility] [address] [address] [address] Angus Hernandez MANUAL DIFF REQ NO Normal [facility] Comment on above: Performed By: #### H GBHCT #### [facility] [address] [place] [address] Dr. Angus Hernandez MCH (RBC) [Entitic mass] 29.4 pg Normal 26.7-34.0 [facility] Comment on above: Performed By: #### H GBHCT #### [facility] [address] [place] [address] Dr. Angus Hernandez MCHC (RBC) [Mass/Vol] 34.4 g/dL Normal 29.9-35.2 [facility] Comment on above: Performed By: #### H GBHCT #### [facility] [address] [place] [address] Dr. Angus Hernandez MCV (RBC) [Entitic vol] 85.6 fL Normal 81.0-99.0 [facility] Comment on above: Performed By: #### H GBHCT #### [facility] [address] [place] [address] Dr. Angus Hernandez MONO # 0.5 103/ul Normal 0.3-0.8 [facility] Comment on above: Performed By: #### H GBHCT #### [facility] [address] [place] [address] Dr. Angus Hernandez Monocytes/100 WBC (Bld) 7.1 % Normal 1.7-12.0 [facility] Comment on above: Performed By: #### H GBHCT #### [facility] [address] [address] [address] Angus Hernandez NEUT # 4.3 103/ul Normal 1.4-6.5 [facility] Comment on above: Performed By: #### H GBHCT #### [facility] [address] [address] [address] Angus Hernandez Neutrophils/100 WBC (Bld) 55.8 % Normal 43.0-75.0 [facility] Comment on above: Performed By: #### H GBHCT #### [facility] [address] [address] [address] Angus Hernandez Platelet mean volume (Bld) [Entitic vol] 10.4 fL Normal 9.5-13.5 [facility] Comment on above: Performed By: #### H GBHCT #### [facility] [address] [place] [address] Dr. Angus Hernandez PLT 295 103/ul Normal 150-450 [facility] Comment on above: Performed By: #### H GBHCT #### [facility] [address] [place] [address] Dr. Angus Hernandez RBC 4.45 106/ul Normal 4.20-5.40 [facility] Comment on above: Performed By: #### H GBHCT #### [facility] [address] [place] [address] Dr. Angus Hernandez WBC 7.6 103/ul Normal 4.0-11.0 [facility] Comment on above: Performed By: #### H GBHCT #### [facility] [address] [address] [address] Angus Hernandez GLYCOHEMOGLOBIN A1Con 2022 ADA RECOMMENDATION SEE BELOW Normal [facility] Comment on above: Result Comment: ADA RECOMMENDED LIMIT 4.0 - 6.0 ADA THERAPEUTIC TARGET < 7.0 ACTION SUGGESTED > 7.0 Performed By: #### P THINT #### [facility] [address] [place] [address] Dr. Angus Hernandez Glucose [Mass/Vol] 103 mg/dL Normal [facility] Comment on above: Performed By: #### P THINT #### [facility] [address] [address] [address] Angus Hernandez HbA1c (Bld) [Mass fraction] 5.2 % Normal 4.5-6.2 [facility] Comment on above: Performed By: #### P THINT #### [facility] [address] [address] [address] Angus Hernandez LIPID PROFILEon 11-14-2022 CHOL-HDL RATIO NORM SEE BELOW Normal [facility] Comment on above: Result Comment: 3.3 - 4.4 LOW RISK 4.4 - 7.1 AVERAGE RISK 7.1 - 11.0 MODERATE RISK >11.0 HIGH RISK Performed By: #### P THINT #### [facility] [address] [place] [address] Dr. Angus Hernandez Cholesterol [Mass/Vol] 195 mg/dL Normal <=200 [facility] Comment on above: Performed By: #### P THINT #### [facility] [address] [address] [address] Angus Hernandez Cholesterol in HDL [Mass/Vol] 42 mg/dL Normal 40-60 [facility] Comment on above: Performed By: #### P THINT #### [facility] [address] [address] [address] Angus Hernandez Cholesterol in LDL [Mass/Vol] 107.0 mg/dL Normal [facility] Comment on above: Performed By: #### P THINT #### [facility] [address] [address] [address] Angus Hernandez Cholesterol.total/Choles terol in HDL [Mass ratio] 4.6 {ratio} Normal [facility] Comment on above: Performed By: #### P THINT #### [facility] [address] [place] [address] Dr. Angus Hernandez HDL NORMAL > or = 60 mg/dl - LO W CARDIOVASCULAR RISK <40 mg/dl - HIGH CARDIOVASCULAR RISK Normal [facility] Comment on above: Performed By: #### P THINT #### [facility] [address] [address] [address] Angus Hernandez LDL CALC NORMAL SEE BELOW Normal [facility] Comment on above: Result Comment: <100 mg/dl OPTIMAL 100 - 129 mg/dl NEAR OR ABOVE OPTIMAL 130 - 159 mg/dl BORDERLINE HIGH 160 - 189 mg/dl HIGH >190 mg/dl VERY HIGH Performed By: #### P THINT #### [facility] [address] [address] [address] Angus Hernandez Triglyceride [Mass/Vol] 230 mg/dL Critically high <=150 [facility] Comment on above: Performed By: #### P THINT #### [facility] [address] [address] [address] Angus Hernandez VLDL CALC 46.0 mg/dL Normal [facility] Comment on above: Performed By: #### P THINT #### [facility] [address] [place] [address] Dr. Angus Hernandez PROF 14(COMP METB)on 023 Albumin [Mass/Vol] 3.9 g/dL Normal 3.4-5.0 [facility] Comment on above: Performed By: #### P THINT #### [facility] [address] [address] [address] Angus Hernandez Albumin/Globulin [Mass ratio] 1.1 {ratio} Normal [facility] Comment on above: Performed By: #### P THINT #### [facility] [address] [address] [address] Angus Hernandez ALP [Catalytic activity/Vol] 58 U/L Normal 46-116 [facility] Comment on above: Performed By: #### P THINT #### [facility] [address] [address] [address] Angus Hernandez ALT [Catalytic activity/Vol] 14 U/L Normal 14-59 [facility] Comment on above: Performed By: #### P THINT #### [facility] [address] [address] [address] Angus Hernandez Anion gap [Moles/Vol] 11.3 mmol/L Normal [facility] Comment on above: Performed By: #### P THINT #### [facility] [address] [address] [address] Angus Hernandez AST [Catalytic activity/Vol] 20 U/L Normal 15-37 [facility] Comment on above: Performed By: #### P THINT #### [facility] [address] [address] [address] Angus Hernandez Bilirubin [Mass/Vol] 0.7 mg/dL Normal 0.2-1.0 [facility] Comment on above: Performed By: #### P THINT #### [facility] [address] [address] [address] Angus Hernandez Calcium [Mass/Vol] 9.2 mg/dL Normal 8.5-10.1 [facility] Comment on above: Performed By: #### P THINT #### [facility] [address] [address] [address] Angus Hernandez Chloride [Moles/Vol] 106 mmol/L Normal 98-107 [facility] Comment on above: Performed By: #### P THINT #### [facility] [address] [address] [address] Angus Hernandez CO2 [Moles/Vol] 28.8 mmol/L Normal 21.0-32.0 [facility] Comment on above: Performed By: #### P THINT #### [facility] [address] [address] [address] Angus Hernandez Creatinine [Mass/Vol] 1.15 mg/dL Critically high 0.55-1.02 [facility] Comment on above: Performed By: #### P THINT #### [facility] [address] [address] [address] Angus Hernandez EGFR-AF LIBYAN 59 mL/min/1.73m2 Critically low >=60 [facility] Comment on above: Performed By: #### P THINT #### [facility] [address] [address] [address] Angus Hernandez EGFR-NON AF LIBYAN 49 mL/min/1.73m2 Critically low >=60 [facility] Comment on above: Performed By: #### P THINT #### [facility] [address] [address] [address] Angus Hernandez Globulin (S) [Mass/Vol] 3.4 g/dL Normal [facility] Comment on above: Performed By: #### P THINT #### [facility] [address] [address] [address] Angus Hernandez Glucose [Mass/Vol] 112 mg/dL Critically high 74-106 [facility] Comment on above: Performed By: #### P THINT #### [facility] [address] [address] [address] Angus Hernandez Potassium [Moles/Vol] 4.1 mmol/L Normal 3.5-5.1 [facility] Comment on above: Performed By: #### P THINT #### [facility] [address] [address] [address] Angus Hernandez Protein [Mass/Vol] 7.3 g/dL Normal 6.4-8.2 [facility] Comment on above: Performed By: #### P THINT #### [facility] [address] [address] [address] Angus Hernandez Sodium [Moles/Vol] 142 mmol/L Normal 136-145 [facility] Comment on above: Performed By: #### P THINT #### [facility] [address] [address] [address] Angus Hernandez Urea nitrogen [Mass/Vol] 17.0 mg/dL Normal 7.0-18.0 [facility] Comment on above: Performed By: #### P THINT #### [facility] [address] [address] [address] Angus Hernandez Urea nitrogen/Creatinine [Mass ratio] 14.8 mg/mg Normal [facility] Comment on above: Performed By: #### P THINT #### [facility] [address] [address] [address] Angus Hernandez TSHon 11-14-2022 TSH 1.092 uIU/mL Normal 0.358-3.740 [facility] Comment on above: Performed By: #### P THINT #### [facility] [address] [address] [address] Angus Hernandez CORTISOL Tomas 05-28-2022 Cortisol AM 13.1 ug/dL Normal 6.2-19.4 [facility] Comment on above: Performed By: #### H GBHCT #### [facility] [address] [place] [address] Dr. Angus Hernadnez CORTISOL PMon 05-28-2022 Cortisol PM 4.1 ug/dL Normal 2.3-11.9 [facility] Comment on above: Performed By: #### H H #### [facility] [address] [place] [address] Dr. Angus Hernandez INSULINon 05-28-2022 Insulin 7.6 uIU/mL Normal 2.6-24.9 [facility] Comment on above: Performed By: #### I NSULIN #### [facility] [address] [place] [address] Dr. Angus Hernandez XR CSPINE MIN 4 [...] FELISA TUCKER Date: 2022-05-27 07:57 Normal [facility] XR TSPINE 3 VIEWSon 05-27-20 22 XR [...] FELISA TUCKER Date: 2022-05-27 08:00 Normal [facility] CBC AUTO DIFFon 05-09-2022 BASO # 0.1 103/ul Normal 0.0-0.1 [facility] Comment on above: Performed By: #### C BC #### [facility] [address] [place] [address] Dr. Angus Hernandez Basophils/100 WBC (Bld) 0.7 % Normal 0.2-2.0 [facility] Comment on above: Performed By: #### C BC #### [facility] [address] [place] [address] Dr. Angus Hernandez EO # 0.2 103/ul Normal 0.0-0.7 [facility] Comment on above: Performed By: #### C BC #### [facility] [address] [place] [address] Dr. Angus Hernandez Eosinophils/100 WBC (Bld) 2.4 % Normal 0.9-7.0 [facility] Comment on above: Performed By: #### C BC #### [facility] [address] [place] [address] Dr. Angus Hernandez Erythrocyte distribution width (RBC) [Ratio] 12.8 % Normal 11.0-15.0 [facility] Comment on above: Performed By: #### C BC #### [facility] [address] [place] [address] Dr. Angus Hernandez Hematocrit (Bld) [Volume fraction] 35.9 % Critically low 36.0-48.0 [facility] Comment on above: Performed By: #### C BC #### [facility] [address] [place] [address] Dr. Angus Hernandez Hemoglobin (Bld) [Mass/Vol] 12.0 g/dL Normal 12.0-16.0 [facility] Comment on above: Performed By: #### C BC #### [facility] [address] [place] [address] Dr. Angus Hernandez IG # 0.03 10e3/ul Normal 0.00-0.03 [facility] Comment on above: Performed By: #### C BC #### [facility] [address] [place] [address] Dr. Angus Hernandez IG % 0.4 % Normal 0.0-0.5 [facility] Comment on above: Performed By: #### C BC #### [facility] [address] [place] [address] Dr. Angus Hernandez LYMPH # 2.2 103/ul Normal 1.2-3.8 [facility] Comment on above: Performed By: #### C BC #### [facility] [address] [place] [address] Dr. Angus Hernandez Lymphocytes/100 WBC (Bld) 32.7 % Normal 20.5-60.0 [facility] Comment on above: Performed By: #### C BC #### [facility] [address] [place] [address] Dr. Angus Hernandez MANUAL DIFF REQ NO Normal [facility] Comment on above: Performed By: #### C BC #### [facility] [address] [place] [address] Dr. Angus Hernandez MCH (RBC) [Entitic mass] 30.7 pg Normal 26.7-34.0 [facility] Comment on above: Performed By: #### C BC #### [facility] [address] [place] [address] Dr. Angus Hernandez MCHC (RBC) [Mass/Vol] 33.4 g/dL Normal 29.9-35.2 [facility] Comment on above: Performed By: #### C BC #### [facility] [address] [place] [address] Dr. Angus Hernandez MCV (RBC) [Entitic vol] 91.8 fL Normal 81.0-99.0 [facility] Comment on above: Performed By: #### C BC #### [facility] [address] [address] [address] Angus Hernandez MONO # 0.5 103/ul Normal 0.3-0.8 [facility] Comment on above: Performed By: #### C BC #### [facility] [address] [address] [address] Angus Hernandez Monocytes/100 WBC (Bld) 7.1 % Normal 1.7-12.0 [facility] Comment on above: Performed By: #### C BC #### [facility] [address] [address] [address] Angus Hernandez NEUT # 3.8 103/ul Normal 1.4-6.5 [facility] Comment on above: Performed By: #### C BC #### [facility] [address] [place] [address] Dr. Angus Hernandez Neutrophils/100 WBC (Bld) 56.7 % Normal 43.0-75.0 [facility] Comment on above: Performed By: #### C BC #### [facility] [address] [address] [address] Angus Hernandez Platelet mean volume (Bld) [Entitic vol] 10.4 fL Normal 9.5-13.5 [facility] Comment on above: Performed By: #### C BC #### [facility] [address] [address] [address] Angus Hernandez PLT 243 103/ul Normal 150-450 [facility] Comment on above: Performed By: #### C BC #### [facility] [address] [address] [address] Angus Hernandez RBC 3.91 106/ul Critically low 4.20-5.40 [facility] Comment on above: Performed By: #### C BC #### [facility] [address] [address] [address] Angus Hernandez WBC 6.7 103/ul Normal 4.0-11.0 [facility] Comment on above: Performed By: #### C BC #### [facility] [address] [address] [address] Angus Hernandez GLYCOHEMOGLOBIN A1Con 2021 ADA RECOMMENDATION SEE BELOW Normal [facility] Comment on above: Result Comment: ADA RECOMMENDED LIMIT 4.0 - 6.0 ADA THERAPEUTIC TARGET < 7.0 ACTION SUGGESTED > 7.0 Performed By: #### H GBHCT #### [facility] [address] [address] [address] Angus Hernandez Glucose [Mass/Vol] 111 mg/dL Normal [facility] Comment on above: Performed By: #### H GBHCT #### [facility] [address] [place] [address] Dr. Angus Hernandez HbA1c (Bld) [Mass fraction] 5.5 % Normal 4.5-6.2 [facility] Comment on above: Performed By: #### H GBHCT #### [facility] [address] [place] [address] Dr. Angus Hernandez LIPID PROFILEon 05-09-2022 CHOL-HDL RATIO NORM SEE BELOW Normal [facility] Comment on above: Result Comment: 3.3 - 4.4 LOW RISK 4.4 - 7.1 AVERAGE RISK 7.1 - 11.0 MODERATE RISK >11.0 HIGH RISK Performed By: #### L IPID, CMP #### [facility] [address] [place] [address] Dr. Angus Hernandez Cholesterol [Mass/Vol] 188 mg/dL Normal <=200 [facility] Comment on above: Performed By: #### L IPID, CMP #### [facility] [address] [place] [address] Dr. Angus Hernandez Cholesterol in HDL [Mass/Vol] 40 mg/dL Normal 40-60 [facility] Comment on above: Performed By: #### L IPID, CMP #### [facility] [address] [place] [address] Dr. Angus Hernandez Cholesterol in LDL [Mass/Vol] 93.4 mg/dL Normal [facility] Comment on above: Performed By: #### L IPID, CMP #### [facility] [address] [address] [address] Angus Hernandez Cholesterol.total/Choles terol in HDL [Mass ratio] 4.7 {ratio} Normal [facility] Comment on above: Performed By: #### L IPID, CMP #### [facility] [address] [address] [address] Angus Hernandez HDL NORMAL > or = 60 mg/dl - LO W CARDIOVASCULAR RISK <40 mg/dl - HIGH CARDIOVASCULAR RISK Normal [facility] Comment on above: Performed By: #### L IPID, CMP #### [facility] [address] [address] [address] Angus Hernandez LDL CALC NORMAL SEE BELOW Normal [facility] Comment on above: Result Comment: <100 mg/dl OPTIMAL 100 - 129 mg/dl NEAR OR ABOVE OPTIMAL 130 - 159 mg/dl BORDERLINE HIGH 160 - 189 mg/dl HIGH >190 mg/dl VERY HIGH Performed By: #### L IPID, CMP #### [facility] [address] [address] [address] Angus Hernandez Triglyceride [Mass/Vol] 273 mg/dL Critically high <=150 [facility] Comment on above: Performed By: #### L IPID, CMP #### [facility] [address] [address] [address] Angus Hernandez VLDL CALC 54.6 mg/dL Normal [facility] Comment on above: Performed By: #### L IPID, CMP #### [facility] [address] [address] [address] Angus Hernandez PROF 14(COMP METB)on 022 Albumin [Mass/Vol] 3.7 g/dL Normal 3.4-5.0 [facility] Comment on above: Performed By: #### L IPID, CMP #### [facility] [address] [place] [address] Dr. Angus Hernandez Albumin/Globulin [Mass ratio] 1.1 {ratio} Normal [facility] Comment on above: Performed By: #### L IPID, CMP #### [facility] [address] [place] [address] Dr. Angus Hernandez ALP [Catalytic activity/Vol] 46 U/L Normal 46-116 [facility] Comment on above: Performed By: #### L IPID, CMP #### [facility] [address] [address] [address] Angus Hernandez ALT [Catalytic activity/Vol] 26 U/L Normal 14-59 [facility] Comment on above: Performed By: #### L IPID, CMP #### [facility] [address] [address] [address] Angus Hernandez Anion gap [Moles/Vol] 10.9 mmol/L Normal [facility] Comment on above: Performed By: #### L IPID, CMP #### [facility] [address] [place] [address] Dr. Angus Hernandez AST [Catalytic activity/Vol] 15 U/L Normal 15-37 [facility] Comment on above: Performed By: #### L IPID, CMP #### [facility] [address] [place] [address] Dr. Angus Hernandez Bilirubin [Mass/Vol] 0.6 mg/dL Normal 0.2-1.0 [facility] Comment on above: Performed By: #### L IPID, CMP #### [facility] [address] [place] [address] Dr. Angus Hernandez Calcium [Mass/Vol] 9.0 mg/dL Normal 8.5-10.1 [facility] Comment on above: Performed By: #### L IPID, CMP #### [facility] [address] [place] [address] Dr. Angsu Hernandez Chloride [Moles/Vol] 107 mmol/L Normal 98-107 [facility] Comment on above: Performed By: #### L IPID, CMP #### [facility] [address] [place] [address] Dr. Angus Hernandez CO2 [Moles/Vol] 27.3 mmol/L Normal 21.0-32.0 [facility] Comment on above: Performed By: #### L IPID, CMP #### [facility] [address] [address] [address] Angus Hernandez Creatinine [Mass/Vol] 1.19 mg/dL Critically high 0.55-1.02 [facility] Comment on above: Performed By: #### L IPID, CMP #### [facility] [address] [address] [address] Angus Hernandez EGFR-AF LIBYAN 57 mL/min/1.73m2 Critically low >=60 [facility] Comment on above: Performed By: #### L IPID, CMP #### [facility] [address] [address] [address] Angus Hernandez EGFR-NON AF LIBYAN 47 mL/min/1.73m2 Critically low >=60 [facility] Comment on above: Performed By: #### L IPID, CMP #### [facility] [address] [address] [address] Angus Hernandez Globulin (S) [Mass/Vol] 3.5 g/dL Normal [facility] Comment on above: Performed By: #### L IPID, CMP #### [facility] [address] [address] [address] Angus Hernandez Glucose [Mass/Vol] 108 mg/dL Critically high 74-106 [facility] Comment on above: Performed By: #### L IPID, CMP #### [facility] [address] [address] [address] Angus Hernandez Potassium [Moles/Vol] 4.2 mmol/L Normal 3.5-5.1 [facility] Comment on above: Performed By: #### L IPID, CMP #### [facility] [address] [address] [address] Angus Hernandez Protein [Mass/Vol] 7.2 g/dL Normal 6.4-8.2 [facility] Comment on above: Performed By: #### L IPID, CMP #### [facility] [address] [address] [address] Angus Hernandez Sodium [Moles/Vol] 141 mmol/L Normal 136-145 [facility] Comment on above: Performed By: #### L IPID, CMP #### [facility] [address] [place] [address] Dr. Angus Hernandez Urea nitrogen [Mass/Vol] 16.0 mg/dL Normal 7.0-18.0 [facility] Comment on above: Performed By: #### L IPID, CMP #### [facility] [facility] [address] [place] [address] Dr. Angus Hernandez Urea nitrogen/Creatinine [Mass ratio] 13.4 mg/mg Normal [facility] Comment on above: Performed By: #### L IPID, CMP #### [facility] [address] [place] [address] Dr. Angus Hernandez PTH INTACTon 02-04-2022 PTH, Intact 22 pg/mL Normal 15-65 [facility] Comment on above: Performed By: #### P THINT #### [facility] [address] [place] [address] Dr. Angus Hernandez HEMOGRAM AND PLATELon 2021 Hematocrit (Bld) [Volume fraction] 39.5 % Normal 36.0-48.0 [facility] Comment on above: Performed By: #### H H #### [facility] [address] [place] [address] Dr. Angus Hernandez Hemoglobin (Bld) [Mass/Vol] 13.3 g/dL Normal 12.0-16.0 [facility] Comment on above: Performed By: #### H H #### [facility] [address] [place] [address] Dr. Angus Hernandez MCH (RBC) [Entitic mass] 30.4 pg Normal 26.7-34.0 [facility] Comment on above: Performed By: #### H H #### [facility] [address] [place] [address] Dr. Angus Hernandez MCHC (RBC) [Mass/Vol] 33.7 g/dL Normal 29.9-35.2 [facility] Comment on above: Performed By: #### H H #### [facility] [address] [place] [address] Dr. Angus Hernandez MCV (RBC) [Entitic vol] 90.2 fL Normal 81.0-99.0 [facility] Comment on above: Performed By: #### H H #### [facility] [address] [place] [address] Dr. Angus Hernandez PLT 256 103/ul Normal 150-450 [facility] Comment on above: Performed By: #### H H #### [facility] [address] [place] [address] Dr. Angus Hernandez RBC 4.38 106/ul Normal 4.20-5.40 [facility] Comment on above: Performed By: #### H H #### [facility] [address] [place] [address] Dr. Angus Hernandez WBC 8.7 103/ul Normal 4.0-11.0 [facility] Comment on above: Performed By: #### H H #### [facility] [address] [place] [address] Dr. Angus Hernandez MAGNESIUMon 02-03-2022 Magnesium [Mass/Vol] 2.0 mg/dL Normal 1.6-2.3 [facility] Comment on above: Performed By: #### H GBHCT #### [facility] [address] [place] [address] Dr. Angus Hernandez RENAL FUNCTION PANELon 02-03 Albumin [Mass/Vol] 3.9 g/dL Normal 3.4-5.0 [facility] Comment on above: Performed By: #### H H #### [facility] [address] [place] [address] Dr. Angus Hernandez Calcium [Mass/Vol] 8.8 mg/dL Normal 8.5-10.1 [facility] Comment on above: Performed By: #### H H #### [facility] [address] [place] [address] Dr. Angus Hernandez Chloride [Moles/Vol] 104 mmol/L Normal 98-107 [facility] Comment on above: Performed By: #### H H #### [facility] [address] [place] [address] Dr. Angus Hernandez CO2 [Moles/Vol] 28.3 mmol/L Normal 22.0-30.0 [facility] Comment on above: Performed By: #### H H #### [facility] [address] [address] [address] Angus Hernandez Creatinine [Mass/Vol] 1.22 mg/dL Critically high 0.52-1.04 [facility] Comment on above: Performed By: #### H H #### [facility] [address] [address] [address] Angus Hernandez EGFR-AF LIBYAN 56 mL/min/1.73m2 Critically low >=60 [facility] Comment on above: Performed By: #### H H #### [facility] [address] [address] [address] Angus Hernandez EGFR-NON AF LIBYAN 46 mL/min/1.73m2 Critically low >=60 [facility] Comment on above: Performed By: #### H H #### [facility] [address] [address] [address] Angus Hernandez Glucose [Mass/Vol] 77 mg/dL Normal 74-106 [facility] Comment on above: Performed By: #### H H #### [facility] [address] [address] [address] Angus Hernandez Phosphate [Mass/Vol] 3.9 mg/dL Normal 2.5-4.5 [facility] Comment on above: Performed By: #### H H #### [facility] [address] [address] [address] Angus Hernandez Potassium [Moles/Vol] 4.3 mmol/L Normal 3.4-5.0 [facility] Comment on above: Performed By: #### H H #### [facility] [address] [address] [address] Angus Hernandez Sodium [Moles/Vol] 140 mmol/L Normal 137-145 [facility] Comment on above: Performed By: #### H H #### [facility] [address] [address] [address] Angus Hernandez Urea nitrogen [Mass/Vol] 22.0 mg/dL Critically high 7.0-18 .0 [facility] Comment on above: Performed By: #### H H #### [facility] [address] [place] [address] Dr. Angus Hernandez UA RANDOM W/MICROSCOPICon BACTERIA NONE SEEN Normal NONE SEEN [facility] Comment on above: Performed By: #### H GBHCT #### [facility] [address] [place] [address] Dr. Angus Hernandez Bilirubin Ql (U) Negative Normal NEGATIVE [facility] Comment on above: Performed By: #### H GBHCT #### [facility] [address] [place] [address] Dr. Angus Hernandez CAST NONE SEEN Normal NONE SEEN [facility] Comment on above: Performed By: #### H GBHCT #### [facility] [address] [place] [address] Dr. Angus Hernandez Clarity (U) CLEAR Normal CLEAR [facility] Comment on above: Performed By: #### H GBHCT #### [facility] [address] [place] [address] Dr. Angus Hernandez Color (U) YELLOW Normal YELLOW [facility] Comment on above: Performed By: #### H GBHCT #### [facility] [address] [place] [address] Dr. Angus Hernandez Crystals LM Nom (Urine sed) NONE SEEN Normal NONE SEEN [facility] Comment on above: Performed By: #### H GBHCT #### [facility] [address] [place] [address] Dr. Angus Hernandez Epithelial cells LM Ql (Urine sed) FEW Abnormal NONE SEEN /RARE [facility] Comment on above: Performed By: #### H GBHCT #### [facility] [address] [place] [address] Dr. Angus Hernandez Glucose Ql (U) Negative Normal NEGATIVE [facility] Comment on above: Performed By: #### H GBHCT #### [facility] [address] [place] [address] Dr. Angus Hernandez Hemoglobin Ql (U) Negative Normal NEGATIVE [facility] Comment on above: Performed By: #### H GBHCT #### [facility] [address] [place] [address] Dr. Angus Hernandez Ketones Ql (U) Negative Normal NEGATIVE [facility] Comment on above: Performed By: #### H GBHCT #### [facility] [address] [address] [address] Angus Hernandez LEUKOCYTES Negative Normal NEGATIVE [facility] Comment on above: Performed By: #### H GBHCT #### [facility] [address] [place] [address] Dr. Angus Hernandez MUCOUS NONE SEEN Normal NONE SEEN [facility] Comment on above: Performed By: #### H GBHCT #### [facility] [address] [place] [address] Dr. Angus Hernandez Nitrite Ql (U) Negative Normal NEGATIVE [facility] Comment on above: Performed By: #### H GBHCT #### [facility] [address] [place] [address] Dr. Angus Hernandez pH (U) 5.5 [pH] Normal 5-9 [facility] Comment on above: Performed By: #### H GBHCT #### [facility] [address] [place] [address] Dr. Angus Hernandez RBC NONE SEEN Abnormal 0-2 [facility] Comment on above: Performed By: #### H GBHCT #### [facility] [address] [place] [address] Dr. Angus Hernandez SPEC GRAVITY >=1.030 Abnormal 1.005-<=1.02 5 [facility] Comment on above: Performed By: #### H GBHCT #### [facility] [address] [place] [address] Dr. Angus Hernandez UA PROTEIN Negative Normal NEGATIVE/ TRACE [facility] Comment on above: Performed By: #### H GBHCT #### [facility] [address] [place] [address] Dr. Angus Hernandez Urobilinogen Qn (U) 0.2 {Tara'U}/dL Normal 0.2 - 1. 0 [facility] Comment on above: Performed By: #### H GBHCT #### [facility] [address] [place] [address] Dr. Angus Hernandez WBC NONE SEEN Normal NONE SEEN [facility] Comment on above: Performed By: #### H GBHCT #### [facility] [address] [place] [address] Dr. Angus Hernandez URIC ACID SERUMon 02-03-2022 Urate [Mass/Vol] 4.5 mg/dL Normal 2.5-6.2 [facility] Comment on above: Performed By: #### H GBHCT #### [facility] [address] [place] [address] Dr. Angus Hernandez URINE T PROTEIN CREAT RATIOo n 02-03-2022 Protein (U) [Mass/Vol] 22.9 mg/dL Critically high <=12.0 [facility] Comment on above: Performed By: #### H GBHCT #### [facility] [address] [place] [address] Dr. Angus Hernandez UR PROT CREAT RAT 0.11 Normal [facility] Comment on above: Performed By: #### H GBHCT #### [facility] [address] [place] [address] Dr. Angus Hernandez URINE CREAT 217.05 mg/dL Normal 20.00-300.00 [facility] Comment on above: Performed By: #### H GBHCT #### [facility] [address] [place] [address] Dr. Angus Hernandez VITAMIN D 25 OHon 02-03-2022 VIT D 25-OH 112.7 ng/mL Normal [facility] Comment on above: Performed By: #### H GBHCT #### [facility] [address] [place] [address] Dr. Angus Hernandez VIT D RANGES SEE BELOW Normal [facility] Comment on above: Result Comment: <20 ng/mL Vit D deficient 20 - <30 ng/mL Vit D insufficient 30 - 100 ng/mL Vit D sufficient >100 ng/mL Potential Toxicity Performed By: #### H GBHCT #### [facility] [address] [place] [address] Dr. Angus Hernandez Covid-19 PCR ([facility])on 12-31 SARS-CoV-2 (COVID-19) RNA MATTHIEU+probe Ql (Unsp spec) Not detected Normal NOT DETECTED [facility] Comment on above: Result Comment: When diagnostic [...] for this test is supported by the [place] of [employer] and Human Service's declaration that [...] used). Performed By: #### C VDTBH #### [facility] [address] [place] [address] Dr. Angus Hernandez CBC AUTO DIFFon 01-15-2022 BASO # 0.1 103/ul Normal 0.0-0.1 [facility] Comment on above: Performed By: #### P THINT #### [facility] [address] [place] [address] Dr. Angus Hernandez Basophils/100 WBC (Bld) 0.6 % Normal 0.2-2.0 [facility] Comment on above: Performed By: #### P THINT #### [facility] [address] [place] [address] Dr. Angus Hernandez EO # 0.0 103/ul Normal 0.0-0.7 [facility] Comment on above: Performed By: #### P THINT #### [facility] [address] [place] [address] Dr. Angus Hernandez Eosinophils/100 WBC (Bld) 0.3 % Critically low 0.9-7.0 [facility] Comment on above: Performed By: #### P THINT #### [facility] [address] [place] [address] Dr. Angus Hernandez Erythrocyte distribution width (RBC) [Ratio] 12.6 % Normal 11.0-15.0 [facility] Comment on above: Performed By: #### P THINT #### [facility] [address] [place] [address] Dr. Angus Hernandez Hematocrit (Bld) [Volume fraction] 36.2 % Normal 36.0-48.0 [facility] Comment on above: Performed By: #### P THINT #### [facility] [address] [place] [address] Dr. Angus Hernandez Hemoglobin (Bld) [Mass/Vol] 12.2 g/dL Normal 12.0-16.0 [facility] Comment on above: Performed By: #### P THINT #### [facility] [address] [place] [address] Dr. Angus Hernandez IG # 0.03 10e3/ul Normal 0.00-0.03 [facility] Comment on above: Performed By: #### P THINT #### [facility] [address] [place] [address] Dr. Angus Hernandez IG % 0.3 % Normal 0.0-0.5 [facility] Comment on above: Performed By: #### P THINT #### [facility] [address] [place] [address] Dr. Angus Hernandez LYMPH # 3.5 103/ul Normal 1.2-3.8 [facility] Comment on above: Performed By: #### P THINT #### [facility] [address] [place] [address] Dr. Angus Hernandez Lymphocytes/100 WBC (Bld) 39.9 % Normal 20.5-60.0 [facility] Comment on above: Performed By: #### P THINT #### [facility] [address] [place] [address] Dr. Angus Hernandez MANUAL DIFF REQ NO Normal [facility] Comment on above: Performed By: #### P THINT #### [facility] [address] [place] [address] Dr. Angus Hernandez MCH (RBC) [Entitic mass] 30.3 pg Normal 26.7-34.0 [facility] Comment on above: Performed By: #### P THINT #### [facility] [address] [place] [address] Dr. Angus Hernandez MCHC (RBC) [Mass/Vol] 33.7 g/dL Normal 29.9-35.2 [facility] Comment on above: Performed By: #### P THINT #### [facility] [address] [place] [address] Dr. Angus Hernandez MCV (RBC) [Entitic vol] 90.0 fL Normal 81.0-99.0 [facility] Comment on above: Performed By: #### P THINT #### [facility] [address] [place] [address] Dr. Angus Hernandez MONO # 0.6 103/ul Normal 0.3-0.8 [facility] Comment on above: Performed By: #### P THINT #### [facility] [address] [place] [address] Dr. Angus Hernandez Monocytes/100 WBC (Bld) 7.1 % Normal 1.7-12.0 [facility] Comment on above: Performed By: #### P THINT #### [facility] [address] [place] [address] Dr. Angus Hernandez NEUT # 4.6 103/ul Normal 1.4-6.5 [facility] Comment on above: Performed By: #### P THINT #### [facility] [address] [place] [address] Dr. Angus Hernandez Neutrophils/100 WBC (Bld) 51.8 % Normal 43.0-75.0 [facility] Comment on above: Performed By: #### P THINT #### [facility] [address] [address] [address] Angus Hernandez Platelet mean volume (Bld) [Entitic vol] 10.3 fL Normal 9.5-13.5 [facility] Comment on above: Performed By: #### P THINT #### [facility] [address] [address] [address] Angus Hernandez PLT 266 103/ul Normal 150-450 [facility] Comment on above: Performed By: #### P THINT #### [facility] [address] [address] [address] Angus Hernandez RBC 4.02 106/ul Critically low 4.20-5.40 [facility] Comment on above: Performed By: #### P THINT #### [facility] [address] [place] [address] Dr. Angus Hernandez WBC 8.8 103/ul Normal 4.0-11.0 [facility] Comment on above: Performed By: #### P THINT #### [facility] [address] [place] [address] Dr. Angus Hernandez PROF CHEM 8 (BAS METB)on Anion gap [Moles/Vol] 12.6 mmol/L Normal [facility] Comment on above: Performed By: #### H H #### [facility] [address] [place] [address] Dr. Angus Hernandez Calcium [Mass/Vol] 8.6 mg/dL Normal 8.4-10.2 [facility] Comment on above: Performed By: #### H H #### [facility] [address] [place] [address] Dr. Angus Hernandez Chloride [Moles/Vol] 104 mmol/L Normal 98-107 [facility] Comment on above: Performed By: #### H H #### [facility] [address] [place] [address] Dr. Angus Hernandez CO2 [Moles/Vol] 28.6 mmol/L Normal 22.0-30.0 [facility] Comment on above: Performed By: #### H H #### [facility] [address] [address] [address] Angus Hernandez Creatinine [Mass/Vol] 1.15 mg/dL Critically high 0.52-1.04 [facility] Comment on above: Performed By: #### H H #### [facility] [address] [address] [address] Angus Hernandez EGFR-AF LIBYAN 60 mL/min/1.73m2 Normal >=60 [facility] Comment on above: Performed By: #### H H #### [facility] [address] [address] [address] Angus Hernandez EGFR-NON AF LIBYAN 49 mL/min/1.73m2 Critically low >=60 [facility] Comment on above: Performed By: #### H H #### [facility] [address] [address] [address] Angus Hernandez Glucose [Mass/Vol] 94 mg/dL Normal 74-106 [facility] Comment on above: Performed By: #### H H #### [facility] [address] [address] [address] Angus Hernandez Potassium [Moles/Vol] 4.2 mmol/L Normal 3.4-5.0 [facility] Comment on above: Performed By: #### H H #### [facility] [address] [address] [address] Angus Hernandez Sodium [Moles/Vol] 141 mmol/L Normal 137-145 [facility] Comment on above: Performed By: #### H H #### [facility] [address] [address] [address] Angus Hernandez Urea nitrogen [Mass/Vol] 22.0 mg/dL Critically high 7.0-17 .0 [facility] Comment on above: Performed By: #### H H #### [facility] [address] [address] [address] Angus Hernandez Urea nitrogen/Creatinine [Mass ratio] 19.1 mg/mg Normal [facility] Comment on above: Performed By: #### H H #### [facility] [address] [place] [address] [id number] [address] Angus Hernandez Coding Summary.on 11-27-2021 Coding Summary. CD:[id number] G h0bWw+PGhlYWQ+PA2PYEU lN90nyGDuuN6UH3fHNH9Z TSURDVTQKR0OBC1cmTM7D MyqX9PrdaYw CjfqeETeTH10DFz8TZT3l UtaBWzbfZ6oaPMeR7z9Wd TeDA70oW38OKwjQXCoGhZ 3LjZpbjsgbWFy C1mhCbSozJFjNec+PHRhY mxlIHdpZHRoPScxMDAlJy JjlBksYP7mQw8dHHZxPNB vbGxhcHNlOiBj o6jaVPTeRQumUL9hyWuqU 0BdgMO3ODJnf1k6Te96uT I+KIYbTOQ7cPmiVIrin94 3AsVny4cvTCV3 wGYmRXimJKU0A16et3J5E CUfBXRnRHC8oEY4hS7mfS daqsrnX6NdiMHiKxJ7VJM 2bWUbgP0sfKqv zrhngL8vOjk+H35VRE8WM QVZZU6UQir5H6KlWtqpyE I+VG32LDVmYD67bJXsgRO sh5ebfBe3OoMs NIQlYRX2rKyqKIbzd1YbQ REhQ55ioSFse6X5WLDvoX mnlSBtNgMbcPX7bD4dDSb jvnxwr8hzzyqc Pchfa4dbrg61kM71R18eG LwzYWIzQOH1EWAnVDKsfJ jkau8ifK2gHw7+RKqrb0e rq6qmpTy1DvCi LDBctqKimMehGPP3z8ChL y31U9GkuTvtj2YhHjj8xk 17lJXsp4C2vRR1PChqZIY tqJ9oXPokNdA0 OMKtFkSbuP34bBGpHHzhD k0ccTjnlEomER0lKOTtvt ilORGunE6vVUYjfZDmtXh dMG0uFOWkjxvt v019ZeVxGSZ9OBRhsPTsW 6TqzK6aNwZwJNGnDNPnA2 IwvPKkXCfiE314NAbtBmY 0CMXeewLeI7Ry UZAlpRckPsH4z8P6Ln9Dn 5FeaizlQHK1KFieAESiZf I7VoXoTvO2O5GiNtk4GOX xvJbkAN7fK0Yj TMKpfiocoyjrcSK5ATSxW USvwM24uIYcTBquId7lx8 R9x076RLQgAWXteX74Cq8 udDogMTBwdCBU yF2yagddj1mhlarsUeRgW SVsVMa1HCj9RWIwhBoaCf NgRCX7RlZ4BZM9eDDscF8 heWdkprdynV9e Oyc+A88iwG5jTVK5CYN4m rsqSEQvntGeTB64YV60F8 RyPjwvdGFibGU+PGRpdiB eaLhnEE2yXvOo m8kpm1UcNBlzM4ArXDOoW XpjOij6IQGrOQJ7zLX8nX 6mJIKrOFniv8K3gVQ9I1F zjuLhgf0zr3sr UTDaKIrnB51vqBZba1W9Q UJveYS2MXOyoTupGxIrtA 93Oyc+XGOdaEtqv1LzEck ky5ztc3yicSg4 LzYzZMQkxxYfvPbqIAD6g 6VhYc69L08kPIhiJSYtKI FaTQTgKJOuoPatiu2prV8 wIi8+PGNvbCB3 fWP2tI2aRXGrFpO6XFdyG 998HfLgyEBdFqxxf0jtn9 bjmMc9OhHpIDQbnxMmlWf lOYZ9x9RmBu29 J68dFRegYJAcEMXlDJPeF PEjiBzhzs4npC2wUw1+PC 8vd9cmme28oG13qDC+PHR cYDW0cTcoLAln PUNjhS6nNBaoZoB2NEUyD uVmcV32tOSsWXtvWj2vmV cdbSyhYZ1sIQRewmnsw74 4KiXka1prWNWt yLGxBGhkJYR6U17wb4K9U DOuMQHrDDR7qPQ4sZ4iqG lnbjogbGVmdDsgdmVydGl eONroBThtL409 IHRvcDsnPlBhdGllbnQgT wXkLTy6G3YrEea2KNPhkJ txLO0jwQXjNQgrLm5dkQg ucSebCC5aFGUp jckqv432AcQwk3jrVEUot NYoOEzlWET6Y79mg5O1GY WmJAHjLWP7tKB2jW3izTt nbjogbGVmdDsg ggNukOyrHQgsTRzcV824G HRvcDsnPkJpcnRoIERhdG N3SV26XE16hKZxu2X4aLD 0O0IgLBGrmizx rkisiJJ5JWLsDUEefD32V a5xdAolVe4uWZKbFYW6VT UeiNMwR0GtvB4eZeXuPXE xWZThG3NisVNm RJpeH505QMhcXmC9FFXfl sYpD5UhYQMeoOjhGxF6z4 X9Xo3TI0H9GZ63AU66lKW kp1P2vMH8V0Og USQwfobycroltCF9KMBhW EAxiY53Ox9pnCnbHt1uPC DlEIC9ENNndAJkG5UnkL9 yOiAjMDAwMDAw P4SzzMBvIZdrZ807DQqbW mK1PGSujqJjJ1JxXSNsxZ fzCsV2u1A5Dx1ZJPk9VA7 3BL97qJTvw6Z6 qBZ0R7PuYNXhfhjvsyvhb YE9ONFaXVBgbG32Sj8ofU duDf3gIAJpFNW2MVBasHS iK0ZuvA4gXqOn HKNwHZEjR3NsmXOaNAouS 972BTvnUjG8HEGlkuSjN8 LiHEGwlYzyAhC2h6G9Lc9 XLMGgON20VQE0 uIL9JK88HV68R6PrGnqpw GFibGU+PHRhYmxlIHdpZH RoPScxMDAlJyBzdHlsZT0 zNr7kAFJxOCFo sNbyfDCtEbZft8naITHxH MwvTG2fuCplH3LwsIO7HC Baw0l5Tv91F04cB3GytTK +UVZpvWX4dZH9 dJ4sKzAyGyD6CCyfZ712G pOltGAbEkjzf7lzf7dbaA y9ZpP6NIEfavJzoUuaPZY 2u8VvIg98G57n IHdpZHRoPSIxNSUiIHZhb Dtany8gaP3pUm9+PGNvbC Q7dIA2pA8uQwLpKrF0DKd rM917HbVucNHe Yczmg3tny1pysNr7MtYdA RJnsyOxbVhxZZF3u0QtRe 63B7HleEdma4IbFkk8rz5 5fHAen5C7tJB5 P6MsHYAjxdzzrLIqdRfuJ P5hUJElwwixIGAijA5eSA ZnI2m4SiFwAiN0KSebG8Y oorT0TANwrKUy IKvoXZB3W11ml0S6MHBdL MRvEZK3jLV5kN1qiJjpor ogbGVmdDsgdmVydGljYWw nMRebO903TAJm gHmcPAVhvU0rBSZdrIFgy BpwTE8xZWRshbrkOnBRBI IYEJLHE6z7V2VbGlm8WIC bzDzhUN7xtKSc GEyzKk1iiDnckAneJN6qZ PZrmjgoMGHfpT8mIKCaeP VibPwgTH4oFWYrepvzq57 7MtArSGZ9AZXr yWHsW9EwrW0dJqMgGMElZ SJhZ7LcpZJxIPeaN366WA yeZtT0OEVnrqFfC2FzRUZ oiKddAzW7g0J0 Xd8rJy8wUL3gBML6DP96A T62yJUdw5Z3yDC9W2DyFN AsvcdfkyewxKM0CNSyBSL wjZ81dGKtIBxt If4lj7R9g200ZWOuGBCdj E45Ij3lnQxhPCEftMRLnW 4secjda1kajsmdQrRkYLS sMNy9LVa8IOHo dSosPbEhUJI7NjH5EAL1u AYsiV5hyJmzuxjlrC9kRi c+GSNdYGIbdfA2P9RkRrh 4RBSbwHluAQ0f vIUvKOpxZq1buHzhaXnfZ Z3mDCEllfhgXROjtD8uTZ XuhFHvaQovBU6lRGOrksk nx447VtDqQCT0 UFTxuGWvS9VgtK4zXxByI CDlNARqA3PnsDEvLJkjQ8 99DZsdYfH0SSIrgrKkA9Y sLWFsaWduOiB0 e2Y2Ho6TMK0irVR3C6PqM lh8FVPobJytWB1fcSEwJR dpHl9vlPbziLwbOE1hTXO xknitCATlmO7e IZXpcKIehPkwWA5rNTVna wezv665MfJqOWT6CJVmwU ExN9WbwI8kGsFaWYIeBRA uP6AxtGIxICpp R404LAdlLlE4VFPoshUkK 1PvEAAjxXcwOeM8t2Y1Jh 6TJAujWD9hfbJgKX9nzgM 9D2FgLklalYS+ EH09CLUmCU59iARaxKCyt 4brbZs1PjRbDVLtOMS0gA pzODwci0YeISMuP24ntSW vf3G4RUOqiIqm jSYmSuMrgUS5cZ9wQTmdb vsmj3yadgujLemfr9iiff 40fR67Q99dURkkGKZdTSB zMCUiIHZhbGln me7mqJ3lZd2+IVUuqCX0n HT8gI7qLfMcTfR6PIacB4 87EoSzoUGwLylbm5rvl5b doVh4RrJsSNWu omEfrVfdUXG5r0GbTp14C 29sIHdpZHRoPSIyMCUiIH XhqUjmzu7raN1cYf7+PC9 up0wnow60nU68 dHI+ZABeKBG5bTynJFrkT FBmpO0wHZvmHrU0IABfYx NnnD74jZIwNYlsDk6rlSr yyClqXJ9nZJUf zhpgw099CjTdu6afAEBte HCxBPfoMKH0W85xa3K9VW IdZQZgRXY8sBO3jQ7orRt nbjogbGVmdDsg nfGbmZrxVJxrUMhrC316A EIppVqhMaLlxLSeB1nxqi YDPS2yIfeqzYA+PHRkIHN 0eWxlPSdwYWRk vK9hFBZfD3s2WtHfCsZ9O IakQ2JelsP2COJloMMlYR AujNLMpZ9zvkwiw5daekw gIzAwMDAwMDt0 WWp9DZJkiIgvZiHjSOY2W bU6WRC1pBLvbV9epXrgmi dakN2qEep+RklOOjwvdGQ +XQHyJQC3qBgp FZjySPVnfR4kXDUfS9s8B hVjTjR1NOeoF4AqorO6PY YacMDcOZLiuTZKrB8yerc ns0wkfzbpQvOo GCIkRAb3VEb2IBYqqXczC wYpOEG7ZkK6OGY8hIEhpQ 0oiFvrzycopG9oOce+TVJ OOjwvdGQ+PHRk PTI6wHhyGLkxRTXgvL0rP JGtZ9n8PtVrJjK2HNpeZ8 OeuwV8VMKhkPUfHFWjlSG ZtZ5zaztck6zx kibvXeDeAQXtKPe3HFy0V RTrfRfeDrDvVZQ6KrW5TR S6cDBpcI3nxVeiiktnuG9 wOyc+CEC3MTW8 TR71UL60I9FrXptbqVOex +PHRhYmxlIHdpZHRoPS cbHREuQmLpaXwlUW3nQo0 yZGVyLWNvbGxh cHNl (more content not included)... Normal [facility] Consent for Treatmenton 09-02 Consent for Treatment [id number] 110 [id number]# 1.00CD:127 Normal [facility] Office/Clinic Note-Physician on 09-23-2021 Office/Clinic Note-Physician [id number]#1 .00CD:127 Normal [facility] Patient Correspondenceon Patient Correspondence [id number] 1102 [id number]#1 .00CD:127 Normal [facility] Patient History Officeon Patient History Office [id number] 1102 [id number]#1 .00CD:127 Normal [facility] Coding Summary.on 09-12-2021 Coding Summary. CD:[id number]:[id number] G h0bWw+PGhlYWQ+GC1NNEP tU78jsTPkhS1WM8kAOZ5Y RQOVYPVADZ3ASK5dnEF3N SfaM7HcyiEa YhjpdJLgPZ40ZHg5XIX3o LoqYIfazN7odCMxH8n9Vv NyJL34oA37PUefULLsHlL 3LjZpbjsgbWFy X6cyCjHnbSXiWtf+PHRhY mxlIHdpZHRoPScxMDAlJy CixSwrGH7vWr7dAXErVWW vbGxhcHNlOiBj p5epDBNbZIooHA5dhXeyZ 8QjwOK7TLSug5h5Xx76rD I+HXHrENQ1cHkgBSywj33 4SjVcu0gzTGQ8 xIDwBBfwXVS0R05kl2Y3G YAnJKPhXOQ5tFB7jC4baT jypvmsA0JucHScKeC0WIY 6sAFhlX7lqMmr eriqwR4nGht+D16MPM1YM JKTBC4MQyc1F5VzVraleM I+XR85BFDpBL65wDEjxYR fi6gluTr1IrYv HGCeTJW8vQecRMawx3KjO ZYtE90xbAHod3A0AZVnmT jmtXDyZmWzfDO0jL3qSWj xqtmqb3ilrplb Iiozg1yded23yH01Y04oE VwdJOOlTBW4VQPbCNSkvC ftoa8snZ8yBm4+IRkos3c tx2gbyQf8VvUt YSHzwlByrAxxEFR2r8IcP f02N2KgrJwmq7ArQhy8gw 53xPBfb6B6pVA9ZSrpOSE jvR4gCCvsLpA1 GUUaZlWrsU65oBTcLExrN r1odHjsqNvxWI3cRAYbsq dsOMMukO5tJBLzfSVtuRx hLI1pPWOnwwgt x094BlWmEPF3MEEpsRJlC 2EpoG6fQtSxZDMpEKNpN3 DifXBfROddB966YOxqKtF 5BLLfulVqK2Qq HAWatQipOsL6s1Q7Zn3Xx 0XgojseHTL1JQnbZJPfDl KvNdNnYnZ7Q9UiJia8KQU bsUsxPI8fH8Ps REYrocntfpdkxHT7NORdU LVntO42rCUoIPluRr4ct1 V1u631SOOfIEBxxS76Qg9 udDogMTBwdCBU pB0ckpogx9etrggpPmFxE EQhFZa2DQi1JSThhKeqMo QtFSG0TsV4FYA3nFHrzX0 ktNuqhcdryJ3k Oyc+O51hwH4iFER5LEF6j dssYPIwscJxZF91OP36L5 RyPjwvdGFibGU+PGRpdiB srVqpRD3dVlBp l5fox2SrACxjV1TfHVYcG RhxHzd0PYEdRAJ8hKY1dZ 3ySBWjBQcdb7O1eZP9Y7J ltkCozv5bv9ll ZRZzPMkrM57ycDQbo4R9D QTchWB0FTPodGsvNcPehI 93Oyc+POAtpJhko8RvQyw ne0ekc3bsgPj5 KmYiJFJcodMhvDhpJMD4a 6FiMn01G51eNDnxKBWlVK CfWBOzPXDdmXqazb6hyA5 wIi8+PGNvbCB3 hBA8wW7tEWDcOaF2AImvX 375HtZxkPVuCbbfa2jij1 sfsQw7UpEvZAOiopSrhDi uOPQ0k9XbKo34 E48cRFpfFGBfYYYmODKuS VEmlJsagp7hwN4lUw1+PC 1ju0icpb18cJ03bWP+PHR cHCT4uWdlTSka XSTwnN0wMSqxZcE0QHAsJ rNkjJ65oNHeZOeaZu5rpJ tjjDvpUG4oUUJalxptl30 5WpKwy9ftNAZd dZCvAOeqLMA8C67bw7T4B CLrTGNmKQZ8sSP0pR5fsV lnbjogbGVmdDsgdmVydGl iTIrfIVoeS377 IHRvcDsnPlBhdGllbnQgT qSwPSa2V7QwCmr1LMDyyP tfQM9ofJNmOSvgIt3yhHl xiGxvBB8gKWVl gtwhf018UqLnj5qdJKLko IFrKPveLDC8F47qw2M1MM MrNVXgDXO2xTZ8wQ9ctNd nbjogbGVmdDsg lhZhiBusIEsrBOjvW186U HRvcDsnPkJpcnRoIERhdG S1SQ13IS80eWCsm7B4oLS 9T7KcVWFxllfo wobrzEK5XSZyCCBvhK73R a5jmUfjRr7qNWRnKIP4HC NmaNWuS2RjgA1oPbTbKXL oMQPtO7RoyWNt ZFhnV056YJpjBsJ8WGLes uRjK5UhRCOouMsuTjC3b1 B1Ad2RS5P6WP54AV75oRC wx2V7lGU3X0Fd UDCjockbsfhbnUR6YXEjR LJntA16Jp9qhMvvRy5pWW BxVUF5JNKfsOEiO6TulA1 yOiAjMDAwMDAw Z3OyiLTjUMnsU818XXnjD sK9HPZzsuVyJ4DiFBHhwB qqEeJ9i5O2Kp2XUYb3JV7 3ZU96vPTux8G0 hRA9R1CvVTLpzkedpeccv MJ8AGLyPIRihL15Xv6edP skWu6iEEAzBBG1DWCocSJ kC1XkuR8pLeKa FNWiWJRgW9DdfQSeZKrvP 569AHjgDzB3GTCtgsZxD9 PxEVUkxNbgMjS0c9M4Rd2 TQFOuBO36RMT3 fQF1DF28WA47W4SfVewod GFibGU+PHRhYmxlIHdpZH RoPScxMDAlJyBzdHlsZT0 wQf7sSZNpIULp lIsrzNPoVwSzu7wjHTJtA YvmHE1vjFjiY4PokBW0RP Hoy8x1Ad07R96kH3ZseOS +VZKnbXT9iDY5 gS1cEgUjPtI9DJjwT547I qDdbEZdBcdhx3iad7ilaI c8DhS7YQZytyRhoYkxTNS 4b7RyEo89H64t IHdpZHRoPSIxNSUiIHZhb Zjdbb9edL3hRv4+PGNvbC O0jUO5bF3lQyQyPqQ3VCj eK432MqUafGPe Xpzyo7sjr6wmfQt3EbAvU RTqxtDdnTbsUYJ1n3IgEa 65S6RohJqws2XbWfu4ew5 0dNKjw8Q3xZP6 A6YeISPqkcswcICcgVolN R1aMSOkxbqnYKLlbC8rQZ VtE9p6UuSrFyY0HPisH6I eiqK8BFArpACi VIenDDA3P95ik2A0RALbY FRwNCL4hQH9kM0fiBbtqu ogbGVmdDsgdmVydGljYWw fUVdnH458TBRw cZepSPJgoF4vCVFrdKAig CetSX7hFVFscbpeVqJKBO ZMHABIB7u3Q6GhSkp5YVT mgLgdXO5qwKYu VSyaTq5bcWcsvKwnUE6hL JKynhbiJKMghG8eIKHlpG LdoPgqYX8pTYIkcjewm16 3BlEuZDU8OUMg oAGnO5YrsF8sSqEgCAEdD OGkO4YdtDZkJVnnK968FW yrIlZ1BVKehnEhI8FrNKJ haYfjPsP2n9M8 So2yYn9sCZ4nOPE8OM34G W03cUPqw3E5jUG3L9BqHI AicffujbuybNH8DTMjZAZ fkC68kFTnCKhr Wy4rc5V8c678ZVTaIHMsn B91Xt8ibCiwVSOwtVDVeT 0wfwxoy9vjiptvTiWsCLD aZWr7OTu0SXYe jMylCaZtCUF8GdH4UAE6e DBhaK8wrDexxkkcdQ7pGm c+MRKxAYMlbeR0U7QxNlt 9EWPbcLhfOU7y qVXyGQgbTq0fzMbjwMhwK J0eVHDashmiDMWjpU9fLD GgmNLneDetWW9pJQUzzaa vk594TwSlXTZ6 BLEruIVmM4SugU7qFoIfH YDeMIHxC1OzmYBhRClmU2 14DUojGoC1OEMqabTbB0K sLWFsaWduOiB0 x0U0Co5PQA7wfSQ5W1JeR zi0JICgdBfwLX4kgBRiEJ onYe7ltWgsoQgyPA8hYTJ wjtueYZAnzX4q RVMpuTJuuIsxJH3aOUGmz yxpg866GfWbGDM4VHKtrW MqN3NskI8qYvRePDLpZCD eC4HpmINdCFdi F732OEknNvZ2RMKjscHwO 3KqCUCoiXahBsP5l8C7Mo 8EXXfuEI7gscQdWN2bskB 0W7TzHyludAN+ PT14FPRwXL28iSJyoXHgn 5kddJq9UhCxPEHjLYN1fC flTSgqd6JbHJYgK16zqBP ks5D9DOKzjIyx gZYfYmHcmBS6mS0vVVkon nhae0rdrjkzBbeak0llmm 33bW15L36iAQeiMQFvDRI zMCUiIHZhbGln nt0hnY1bJc1+GODooGA5d YN4aB0hJcIfNiJ9PQdjD0 98CuVrrZNvFhems7wgx8j rcJt1XiGpFYEq dtOlgGgvRZO8u8DqDk73P 29sIHdpZHRoPSIyMCUiIH HdhXmgjw3vkF2kRi7+PC9 hh8toay68hR63 dHI+UKEoPRU2jJjfDJuhX EVxlD7rOKutUzV7OAToCe FhwQ50sRWlJJrbBa5iwOe yoQaeIE0dYVEz ryris810OhWtp7wyYZGdd MAuJLsqWDE0F35tc4X0TQ JtKEKyTRW5xIH5eG0rqMc nbjogbGVmdDsg awLizKbjIXenDGzwN110X OHprSpnGqKfuZJfQ2fovy VNVR0hJlkbwPK+PHRkIHN 0eWxlPSdwYWRk sG9vHIRaK5e8YqCoCrT1T FxaK3GwybV4IHMtvKVbBK QokRPVtL7qlqigy5fkqay gIzAwMDAwMDt0 QHr6MBJmqXmbLdNiKBV6D dA8NXR2aEHzrZ2kzPoaqg vouE5gQzr+RklOOjwvdGQ +XOPlCJQ8pOyb WZlxJEPozJ8zJWXwD0o6B vPsQkE6RDqgS0BxstK4QT WnhQRuHTZtfQJCpC8ejgl rk5kpjvetPwYp RFClXZy8ADm7GODprGmuA nCmGWZ6TaI1YVN3kOLnzZ 8tyEzxjewdzZ8nNdt+TVJ OOjwvdGQ+PHRk DDV7sPntMYagCBKdvI7nB XWoB9q9EvOvIjF3ATcsV9 HtcyJ3UCQfrSTcYGJphNS BcG9gdttcy4cf llipYxWmOVWzKPt1MNo7R TCcaPhoVvPtPAS4LoR6HX A4zAYtiL3riYzdwcxxrZ5 wOyc+UYO4TWN4 XK03ID59J2EdOvoelFRzu +PHRhYmxlIHdpZHRoPS azWIStOlHcrSndQG8oBa1 yZGVyLWNvbGxh cHNl (more content not included)... [facility] Coding Summary.on 09-03-2021 Coding Summary. CD:[id number]:[id number] G h0bWw+PGhlYWQ+TO1OOBO jY21rsRGzhU8EY5tCOJ7J UQRTVMAJXO6NPV1ioHO5J YkcR3QtuwXh UycnyFLkGH22AEy2VJF2c OtxTQariY1jqCXzE9v5Rq DfUV04aU99BNmwTYIqLpJ 3LjZpbjsgbWFy J6chZuFeoQAtNgs+PHRhY mxlIHdpZHRoPScxMDAlJy QrtIeyAH9dMc9sFIRrMRU vbGxhcHNlOiBj z7apIRSnBTttWW3rqVsgF 5HztHS4NNOjt3l0Jo80iK I+HBPcASQ8yLtzYIrex26 9BoEwg9kmPDU5 rSDrBEjtQQY7D92gw7Y5P VBiDBQkBJP6cDS4rJ9tnA bojtfoO0LqvTTpRhV8PAV 9qDByhL4psNdn wgdnvE9nTzr+K60CKT9CE QSKGE1GGnw9Q2TbRliaaW I+TY12ONSfWQ55eMWigED hm1tkqXi8ErNk GUNmSNI4fVosDRtqo2SwK JGvF97spBHmw2M0NJAggN dyhWIqXlVxuNR4tT3wESd hkuynx2vmlsxw Fdzeh6zqin04nJ05B33aY IkfSOByCQC6FASjPPEeoT xmiq8jwQ9hIs0+LDrnh9v ye6gyzAl2KpBh UKVmfzDrvCxaITL8q0XgV o35R9ShyXvlm1HsVrd0pr 16kWBqb6I5nBV3BHvtLTG pzI1nTQsvExV3 DDImDtXnmH47mISqHTvkC a6xlLjehUfxPK5nMRGfcv ufVIPqgW3yOOWjpKRziJl oLG5vSLFwiduq h739FxGpSVJ7QRIieBRtT 3CqvD1oKhZuBVOaPAOvZ1 XvoHCnAZqmF297LLmmRqC 7QALfpzYyB6Wp XGOvbTmcApW6g9H0Az5Mf 8WoixhwPGF7WEdmLLSmPx KfZrJbPbT0S2TqJpm4TWR jaMyiDY7mI2Xw LQWnpzdolsqlwAM1CCZcB WFxgU81oRKgWYhqVw3hr9 F6q082RNMmBZAyzG88Lj8 udDogMTBwdCBU kA3ptyxkb3hjeaalJcWtY GXxNNn4SGf0PLGgtBleOf MlDBZ4TqB6WOX2rLTyzJ7 kuOhfqxkvyY9c Oyc+E56cqV5mCAZ2WFC0z egqWXFxwaDpOJ19LI48R1 RyPjwvdGFibGU+PGRpdiB mgKmuBO2mTbHx f7zhs9RlNFayB5NcSEUwD UuuCvf7ROAcVUZ0hZY6mS 7cQGGmTBvem2N7jOT0P8D fqnIdkk8tc9cu QXSrGRntZ67wfWGir1K9J WMjeVJ8CIKbxDflOfPdaE 93Oyc+YJLorPake3OiLmx bu0ioc8vrjMd0 GaPoLOPptjSqmKnhWVB3h 9RsHb23I28cDFloRZNiXI VfHWBkWUEhzWsuqt5mcQ3 wIi8+PGNvbCB3 mTY6oY3nKQUuXgK8NStfN 628SsAqgKHxQrbos2vdr5 xrwJg9WcNvCIAfbvOxjQh hGIT3c1WhHx19 T82nWGftCXFdDUBzCOEsV BQfxYgken0twE1xNc9+PC 1iw2ismr56gT12dXJ+PHR dMML2dOioYFuq FYHgmV2sYWevTeJ7XMUsB tLumY73qIEkZQclGf1pqS rasZedNR1tLIFqbydyw13 3XzWlz4quGJMo qIMsQAmeOZB9V30ez2A4E MIkHGYxIKD2hTA0pO3ydI lnbjogbGVmdDsgdmVydGl kBCqdRIzqA279 IHRvcDsnPlBhdGllbnQgT dRwNTu7X6NzIki3ENFtpK bpGN6gySDyLYlnAk0xzEj nnWjnOB4xLVYb vovdm178WmLbr2uyPNBdd HCuZAzaEYG1L24ji9C4VA VkUFYuUSS9oSO8xV3zvNe nbjogbGVmdDsg pnXjlChlBWjrOCdrW029N HRvcDsnPkJpcnRoIERhdG E2WL30UJ79fADjk4W9cLB 9R1XfXAFcigym ryljqIJ2OQIgCOKacS34T d1wvCidIc4hPWUxWDR6JI EvoLEoP2CgiI1hSxDdZWK yCKLbR8IymSKl RIsdG135PXjdOoP7TCQyz iPqL9ElCUZhoDgqQxY3f1 Q9Yj8TQ0M3MA50OV32vFL jl0X3gHI4H5Yx ADOitaiycljsrGY9NZOzU SOrfS23Xh7bmIsgGl1eYB DySRZ5EEYlcWEvW9LhkP3 yOiAjMDAwMDAw A2KkrHLtWEwoA321XOhlA pE3HZXiyzSnH0MeEDBemW szEyV1s3K5Zm6NNPl6OP1 6NV51eOAar3S9 fCJ3D1ShQIUswatdtlazw IV4ELQiYSOkhJ87Qi4stQ myXx3wMEIoPEQ3LPJtfJZ xG4RurA7nGnXd UMNgGJSlZ6PfeYOdFDauJ 805TRzyOmU3QBPjilOtT5 TnUOPjtBdpZgZ9r7N6Bo4 VTOJtCA96ZIZ6 bYG4BZ96VQ52H0QxQuuwr GFibGU+PHRhYmxlIHdpZH RoPScxMDAlJyBzdHlsZT0 fTy3aYRNvMNJb cZynuYPkIuCur2kpNTIgT RfgVT3vmBdbV7YwiYV8GL Nar5b8Ur23A43cF7MijOD +FEOkoMG6bPY6 pU6yYaVjKtU0PLavC459V sWssJNwCwujp0lev9mhvL y0LgH0YZPwnpNiuYhvHDQ 3t6PmUy56L44h IHdpZHRoPSIxNSUiIHZhb Uxbdz1aiI2rTs3+PGNvbC E3xUV3xZ5eInGqCgA2XPx eI497FfEzlUMz Hriwa0och6igeRa9GmHqQ WAbcrKtsMexUVL5w9KgYu 14W9TovWeuq1UrFpd0ea6 1oUGfd0S2uXU5 T7TyXVTbbsmneVVxeRfjP H0vBJWbuivaNABqaK3jRK TfL5w7LvKnBcG0ZYtvG6U rwvQ9XMWlbSPq DCnaHMF8L09bg0U8XKZvZ CMbWPD1zJS3hM1jjVdtsn ogbGVmdDsgdmVydGljYWw aKGluD174LOTu kQrsTUKwlT8mZMIujIGtx FvoHC9mJWLqwzcvRmCYJX TBIOOIG4e8I0BsDfs8SKV bbHfnOW1gdWPy EJajUy6etHjkoXiuRE3vZ LEujdznLMLpzE5rNNXamF BdsAmnWX1aGWJwknvrx35 3XmEqZPX7RQOz oFWnU9YyqH4xYaNpWTVdW EIaZ5SucFXtBGtfS358RA rfPzZ2FOOawfGlH7YzDMB veMiaOhG4q6E3 Gx7sQj0oWF9ePXW7YW85P U05nGBbw9U7aQB8F4LlCR GboibkqxeofYD8SIKaFNE rzY65uVIaXNyb Uj3bw7H9i940RMXmZMBtn T69Rw3nfUweKEBvyEVMgS 3lurbef6dfrkueHrTtVCG aKNb2WNv3LKLz uIpmPfSrFAA4NrG2NPL5u HGimQ1pdFxmslhpaO6aVg c+CQFdHQHahgV1M0BmQqw 9LLAoaEgsLP1b pCYjUQpmKl8qiSuspOjoE T0hXUChozofGAOrxI0lTY VduWXaaTrmKP7mTDWylmq cg500AzLxGNE4 PYZzrKTrA8CitE5dDrIkJ VZrNLGzK5TzkROtTZzgW6 05IPwbFdJ1NNLwhzXdS0V sLWFsaWduOiB0 e4B4Bv6TFM7esYP2O4ZjO dq9LUTjjGpxIC4zzKEpVJ gjGv9bkRelpMnyIK2bAWX hkglkJBSuyQ6r IZKjoTRaaOogQY4uHWQqq pyzl611JbKpTGN8YDResY FwF4UahQ5aQpCzLWSiYWM yK4DbeUXzDKbv T028HKodQiA1MGJbhlYbV 6XpCPMupOpcXbI4n4I9Wu 3GMSzhEO5dueRyXG9jjvM 1O5FkFlsigRP+ NS71FNDfVL36xZXchNSkz 8sndRt3ZzLaOVFtOZF2oA bfMSarm4GvQTSgX20uaEA gn2M1PXAzxLbh dSVwBlWjpRQ9wU7tJAfns nzho8zucptbCtkue9fngg 22uA95P76uXVtbAXAnQBH zMCUiIHZhbGln sm5xcD8dTo5+NURhjAA9o YU6tC4jHjRaAgW5DJoxN1 32UnUkzEPtSdfho4jqx7c rrTn2XwOzNUDp arWbeBqpWII4u4PxTf66P 29sIHdpZHRoPSIyMCUiIH IjmFhrve0ftJ2rUu2+PC9 xk0oypc40oF76 dHI+NOGrJPW5wOrrQAbwT CIxfF5uTZzjVcY0OREmYv ZgfF67fLPcWPknQc1hvWd vhZuxBA9jEZNa mtupq561TuRaj5gkPGKgz YVeUMrzECF4W58yy3V9LB IvQCSzZWT1qHQ8aQ2rxSl nbjogbGVmdDsg khQpvMmpDZylGQnbU401I PJolJbiUvCsnFFcF1vmhl GCVT3pUospzDH+PHRkIHN 0eWxlPSdwYWRk iX5aYDZkN8d2SwPaLgJ2L FxzK9WsdlV3PMSdwXAdYZ SnhRKIqW8psoyjf6zjshs gIzAwMDAwMDt0 LPd2HMOlbRbvDjNcZDI1W rJ9QQI9eYPuhV3kgKsmyb qzjG8zFqg+RklOOjwvdGQ +PRQuGPE3aZbe MDjrTVDojF9oYRLrJ9q8E uFfBrE9ADksC1DnxeM9SP KxjWNsIRMvcVYKcJ2hugh sw3cxvhqlMuUw BIQsWLr2DMi9NFPxnKrxD sNkHFX6MzR8ZXV3zJUtbP 4mqRuamjxuaV3sGuy+TVJ OOjwvdGQ+PHRk XUU5oFpoMDzoPDGtuI5gJ RNnA4l5EfMxFcV1TAzqF2 ZkffM8INIgrEWuFAOjrVM DrR2ilsofs9jj dafzAcHeDIYgNDu6YCj6Z XSggIrbUgXaDBU9NvJ3MO B6hGXabK1moHbazhbuxS9 wOyc+BQV4QWT6 GR14NE25J8DzMonyfSIzq +PHRhYmxlIHdpZHRoPS qqXISdMoKzqAbpCL0iTk6 yZGVyLWNvbGxh cHNl (more content not included)... Normal [facility] Consent for Procedure/Surger yon 09-02-2021 Consent for Procedure/Surgery [id number]#1 .00CD:127 Normal [facility] Consent for Treatmenton Consent for Treatment [id number]# 1.00CD:127 [facility] Discharge Instructionson Discharge Instructions [id number]#1 .00CD:127 [facility] IntraOperative Documentson 1 11-02-2020 IntraOperative Documents [id number]#1 .00CD:127 [facility] Main OR Intraoperative Recor don 09-02-2021 Main OR Intraoperative Record IntraOp Document Type FTPM Summary Primary Physician: Cole Hidalgo MD Finalized Date/Time: 09/02/21 09:26:26 Pt. Name: MYRTLE JONES/Sex: 1965 Female Med Rec #: [id number] Physician: Cole Hidalgo MD Financial #: [id number] Pt. Type: P Room/Bed: / Admit/Disch: 09/02/21 08:07:50 - Institution: Case Times FTPM Entry 1 Patient Times In Room 09/02/21 09:21:00 Out Room 09/02/21 09:26:00 Procedure Times Start 09/02/21 09:24:00 Stop 09/02/21 09:25:00 Anesthesia Times Last Modified By: Emerald Ward RN 09/02/21 09:26:11 Case Attendance FTPM Entry 1 Entry 2 Entry 3 Case Attendee Cole Hidalgo MD, RN, Emerald LANTIGUA R, Ralph De Oliveira Role Performed Surgeon - Primary Test Skein Winder - Primary Anesthesia Associate Time In 09/02/21 09:21:00 09/02/21 09:21:00 09/02/21 [...] Antibiotic No Time Out Emerald Ward RN, Joel Calle RN, Cole Armstrong, Gwen CANNON, Cole Anaya, Glenn LIZ, Grant Sánchez R, [...] and tissue Entry 1 Skin Integrity Intact, [place], Warm, and Skin Abnormality No Dry Outcomes [...] Large, Safe (more content not included)... Normal [facility] Main OR Preoperative Recordo n 09-02-2021 Main OR Preoperative Record Holding Area Document Type FT Summary Primary Physician: Cole Hidalgo MD Finalized Date/Time: 09/02/21 08:30:21 Pt. Name: MYRTLE JONES /Sex: 1965 Female Med Rec #: [id number] Physician: Cole Hidalgo MD Financial #: [id number] Pt. Type: P Room/Bed: / Admit/Disch: 09/02/21 [...] By: Eve Torres RN 09/02/21 08:30 Normal [facility] Operative Reporton Operative Report Patient: MYRTLE JONES [...] Monitered 110 mmHg SpO2 100 % . [facility] Comment on above: Result Comment: Elec tronically Signed By: Gwen CANNON, Cole Anaya\.br\Date and Time Signed: 09/02/21 09:26 EDT Patient Correspondenceon Patient Correspondence [id number] 1100 [id number]# 1.00CD:127 [facility] Insurance Correspondence Off iceon 08-22-2021 Insurance Correspondence Office [id number]#1. 00CD:127 [facility] Consent for Treatmenton 08-01 Consent for Treatment [id number]#1 .00CD:127 [facility] HIPAA Forms Officeon 021 HIPAA Forms Office [id number]# 1.00CD:127 Normal [facility] Legal Correspondence Officeo n 08-18-2021 Legal Correspondence Office [id number]# 1.00CD:127 Normal [facility] Legal Correspondence Office [id number]# 1.00CD:127 Normal [facility] Office/Clinic Note-Physician on 08-18-2021 Office/Clinic Note-Physician [id number]# 1.00CD:127 Normal [facility] Patient Correspondenceon Patient Correspondence [id number] 1100 [id number]# 1.00CD:127 Normal [facility] Patient Correspondence [id number] 1100 [id number]# 1.00CD:127 Normal [facility] Patient Correspondence [id number] 1100 [id number]# 1.00CD:127 Normal [facility] Patient Correspondence [id number] 1100 [id number]# 1.00CD:127 Normal [facility] Patient Correspondence [id number] 1100 [id number]# 1.00CD:127 Normal [facility] Patient History Officeon Patient History Office [id number] 1100 [id number]# 1.00CD:127 Normal [facility] Radiology Outside Office [employer] yon 08-11-2021 Radiology Outside Office Copy [id number]#1 .00CD:127 Normal [facility] Radiology Outside Office Copy [id number]#1 .00CD:127 Normal [facility] Outside Records Officeon Outside Records Office [id number] 1100 [id number]# 1.00CD:127 Normal [facility] Referrals Officeon Referrals Office [id number]# 1.00CD:127 Normal [facility] Vital Signs Date Time Vital Sign Value Performing Clinician Facility 06-27-2025 14:34-0400 Body height 170.18 cm Anand Garcia DO Work Phone: [facility] 06-27-2025 14:34-0400 Body mass index (BMI) [Ratio] 23.9 kg/m2 Anand Garcia DO Work Phone: [facility] 06-27-2025 14:34-0400 Body temperature 98.2 [degF] Anand Garcia DO Work Phone: [facility] 06-27-2025 14:34-0400 Body weight 69.39 kg Anand Garcia DO Work Phone: [facility] 06-27-2025 14:34-0400 Diastolic blood pressure 82 mm[Hg] Anand Garcia DO Work Phone: [facility] 06-27-2025 14:34-0400 Heart rate 61 /min Anand Garcia DO Work Phone: [facility] 06-27-2025 14:34-0400 SaO2% (BldA) [Mass fraction] 98 % Anand Garcia DO Work Phone: [facility] 06-27-2025 14:34-0400 Systolic blood pressure 126 mm[Hg] Anand Garcia DO Work Phone: [facility] 06-22-2025 11:27-0400 Body height 170.18 cm Anand Garcia DO Work Phone: [facility] 06-22-2025 11:27-0400 Body mass index (BMI) [Ratio] 24.1 kg/m2 Anand Garcia DO Work Phone: [facility] 06-22-2025 11:27-0400 Body temperature 98.3 [degF] Anand Garcia DO Work Phone: [facility] 06-22-2025 11:27-0400 Body weight 70.02 kg Anand Garcia DO Work Phone: [facility] 06-22-2025 11:27-0400 Diastolic blood pressure 79 mm[Hg] Anand Garcia DO Work Phone: [facility] 06-22-2025 11:27-0400 Heart rate 76 /min Anand Garcia DO Work Phone: [facility] 06-22-2025 11:27-0400 SaO2% (BldA) [Mass fraction] 98 % Anand Garcia DO Work Phone: [facility] 06-22-2025 11:27-0400 Systolic blood pressure 137 mm[Hg] Anand Garcia DO Work Phone: [facility] 05-14-2025 09:05-0400 Body height 170.18 cm Anand Garcia DO Work Phone: [facility] 05-14-2025 09:05-0400 Body mass index (BMI) [Ratio] 23.8 kg/m2 Anand Garcia DO Work Phone: [facility] 05-14-2025 09:05-0400 Body weight 69 kg Anand Garcia DO Work Phone: [facility] 04-04-2025 15:53-0400 Body height 170.2 cm Simona Carlson WEALTH MANAGEMENT DIRECTOR.ROADS AND [employer]ING [employer]S SWEEPER OPERATOR Work Phone: [facility] 04-04-2025 15:53-0400 Body mass index (BMI) [Ratio] 23.49 kg/m2 Simona Carlson WEALTH MANAGEMENT DIRECTOR.ROADS AND [employer]ING [employer] SWEEPER OPERATOR Work Phone: [facility] 04-04-2025 15:53-0400 Body weight 68.04 kg Simona Carlson APRN.[employer] SWEEPER OPERATOR Work Phone: [facility] 04-04-2025 15:53-0400 Diastolic blood pressure 82 mm[Hg] Simona Carlson WEALTH MANAGEMENT DIRECTOR.ROADS AND PARKING [employer]S SWEEPER OPERATOR Work Phone: [facility] 04-04-2025 15:53-0400 Systolic blood pressure 148 mm[Hg] Simona Carlson WEALTH MANAGEMENT DIRECTOR.ROADS AND P[employer]ING [employer]S SWEEPER OPERATOR Work Phone: [facility] 03-20-2025 14:41-0400 Body temperature 97.7 [degF] Anand Garcia DO Work Phone: [facility] 03-20-2025 14:41-0400 Body weight 69.08 kg Anand Garcia DO Work Phone: [facility] 03-20-2025 14:41-0400 Diastolic blood pressure 84 mm[Hg] Anand Garcia DO Work Phone: [facility] 03-20-2025 14:41-0400 SaO2% (BldA) [Mass fraction] 98 % Anand Garcia DO Work Phone: [facility] 03-20-2025 14:41-0400 Systolic blood pressure 118 mm[Hg] Anand Garcia DO Work Phone: [facility] 01-10-2025 14:30-0400 Diastolic blood pressure 77 mm[Hg] Anand Garcia DO Work Phone: [facility] 01-10-2025 14:30-0400 Heart rate 68 /min Anand Garcia DO Work Phone: [facility] 01-10-2025 14:30-0400 Respiratory rate 20 /min Anand Garcia DO Work Phone: [facility] 01-10-2025 14:30-0400 SaO2% (BldA) [Mass fraction] 99 % Anand Garcia DO Work Phone: [facility] 01-10-2025 14:30-0400 Systolic blood pressure 117 mm[Hg] Anand Garcia DO Work Phone: [facility] 01-10-2025 12:35-0400 Body temperature 97.7 [degF] Anand Garcia DO Work Phone: [facility] 01-10-2025 12:05-0400 Inhaled oxygen flow rate 8 L/min Anand Garcia DO Work Phone: [facility] 01-10-2025 09:33-0400 Body height 170.18 cm Anand Garcia DO Work Phone: [facility] 01-10-2025 09:33-0400 Body weight 68.03 kg Anand Kendell DO Work Phone: [facility] 12-18-2024 15:12-0500 Body height 170.18 cm Anand Kendell DO Work Phone: [facility] 12-18-2024 15:12-0500 Body mass index (BMI) [Ratio] 23.7 kg/m2 Anand Garcia DO Work Phone: [facility] 12-18-2024 15:12-0500 Body weight 68.8 kg Anand Kendell DO Work Phone: [facility] 11-16-2024 15:34-0500 Body height 170.18 cm Anand Garcia DO Work Phone: [facility] 11-16-2024 15:34-0500 Body mass index (BMI) [Ratio] 23.7 kg/m2 Anand Garcia DO Work Phone: [facility] 11-16-2024 15:34-0500 Body temperature 96.4 [degF] Anand Kendell DO Work Phone: [facility] 11-16-2024 15:34-0500 Body weight 68.8 kg Anand Kendell DO Work Phone: [facility] 11-16-2024 15:34-0500 Diastolic blood pressure 86 mm[Hg] Anand Kendell DO Work Phone: [facility] 11-16-2024 15:34-0500 Heart rate 72 /min Anand Garcia DO Work Phone: [facility] 11-16-2024 15:34-0500 Respiratory rate 16 /min Anand Garcia DO Work Phone: [facility] 11-16-2024 15:34-0500 SaO2% (BldA) [Mass fraction] 98 % Anand Garcia DO Work Phone: [facility] 11-16-2024 15:34-0500 Systolic blood pressure 116 mm[Hg] Anand Garcia DO Work Phone: [facility] 10-19-2024 08:33-0500 Body height 170.18 cm Anand Garcia DO Work Phone: [facility] 10-19-2024 08:33-0500 Body mass index (BMI) [Ratio] 23.9 kg/m2 Anand Garcia DO Work Phone: [facility] 10-19-2024 08:33-0500 Body weight 69.39 kg Anand Garcia DO Work Phone: [facility] 10-04-2024 16:00-0500 Body height 170.2 cm Simona Carlson WEALTH MANAGEMENT DIRECTOR.ROADS AND P[employer]ING [employer]S SWEEPER OPERATOR Work Phone: [facility] 10-04-2024 16:00-0500 Body mass index (BMI) [Ratio] 24.17 kg/m2 Simona Carlson WEALTH MANAGEMENT DIRECTOR.ROADS AND PARKING LOTS SWEEPER OPERATOR Work Phone: [facility] 10-04-2024 16:00-0500 Body weight 70 kg Simona Carlson WEALTH MANAGEMENT DIRECTOR.ROADS AND PARKING LOTS SWEEPER OPERATOR Work Phone: [facility] 10-04-2024 16:00-0500 Diastolic blood pressure 72 mm[Hg] Simona Carlson WEALTH MANAGEMENT DIRECTOR.ROADS AND PARKING LOTS SWEEPER OPERATOR Work Phone: [facility] 10-04-2024 16:00-0500 Heart rate 74 /min Simona Carlson WEALTH MANAGEMENT DIRECTOR.ROADS AND PARKING LOTS SWEEPER OPERATOR Work Phone: [facility] 10-04-2024 16:00-0500 Systolic blood pressure 130 mm[Hg] Simona Carlson WEALTH MANAGEMENT DIRECTOR.ROADS AND PARKING LOTS SWEEPER OPERATOR Work Phone: [facility] 09-20-2024 14:52-0500 Body mass index (BMI) [Ratio] 24.3 kg/m2 Anand Garcia DO Work Phone: [facility] 09-20-2024 14:52-0500 Body temperature 97.1 [degF] Anand Kendell DO Work Phone: [facility] 09-20-2024 14:52-0500 Diastolic blood pressure 88 mm[Hg] Anand Garcia DO Work Phone: [facility] 09-20-2024 14:52-0500 Heart rate 66 /min Anand Kendell DO Work Phone: [facility] 09-20-2024 14:52-0500 SaO2% (BldA) [Mass fraction] 98 % Anand Bellamyromelia DO Work Phone: [facility] 09-20-2024 14:52-0500 Systolic blood pressure 136 mm[Hg] Anand Kendell DO Work Phone: [facility] 09-20-2024 14:37-0500 Body height 170.18 cm Anand Kendell DO Work Phone: [facility] 09-20-2024 14:37-0500 Body weight 70.3 kg Anand Bellamyromelia DO Work Phone: [facility] 06-21-2024 14:45-0400 Body height 170.18 cm DO Anand Bellamyromelia Work Phone: [facility] 06-21-2024 14:45-0400 Body mass index (BMI) [Ratio] 24.3 kg/m2 DO Anand Bellamyromelia Work Phone: [facility] 06-21-2024 14:45-0400 Body temperature 97.3 [degF] DO Anand Bellamyromelia Work Phone: [facility] 06-21-2024 14:45-0400 Body weight 70.3 kg DO Anand Garcia Work Phone: [facility] 06-21-2024 14:45-0400 Diastolic blood pressure 78 mm[Hg] DO Anand Garcia Work Phone: [facility] 06-21-2024 14:45-0400 Heart rate 57 /min DO Anand Garcia Work Phone: [facility] 06-21-2024 14:45-0400 Respiratory rate 18 /min DO Anand Garcia Work Phone: [facility] 06-21-2024 14:45-0400 SaO2% (BldA) [Mass fraction] 98 % DO Anand Garcia Work Phone: [facility] 06-21-2024 14:45-0400 Systolic blood pressure 122 mm[Hg] DO Anand Garcia Work Phone: [facility] 03-29-2024 16:01-0400 Body height 170.2 cm Simona Carlson APRN.ROADS AND PARKING LOTS SWEEPER OPERATOR Work Phone: [facility] 03-29-2024 16:01-0400 Body mass index (BMI) [Ratio] 25.41 kg/m2 Simona Carlson APRN.ROADS AND PARKING LOTS SWEEPER OPERATOR Work Phone: [facility] 03-29-2024 16:01-0400 Body weight 73.6 kg Simona Carlson APRN.ROADS AND PARKING LOTS SWEEPER OPERATOR Work Phone: [facility] 03-29-2024 16:01-0400 Diastolic blood pressure 68 mm[Hg] Simona Carslon APRN.ROADS AND PARKING LOTS SWEEPER OPERATOR Work Phone: [facility] 03-29-2024 16:01-0400 Heart rate 67 /min Simona Carlson APRN.ROADS AND PARKING LOTS SWEEPER OPERATOR Work Phone: [facility] 03-29-2024 16:01-0400 Systolic blood pressure 142 mm[Hg] Simona Carlson APRN.ROADS AND PARKING LOTS SWEEPER OPERATOR Work Phone: [facility] 09-13-2023 14:40-0500 Body height 170.18 cm Anand Garcia Other [facility] Other 09-13-2023 14:40-0500 Body mass index (BMI) [Ratio] 28.97 kg/m2 Anand Garcia Other [facility] Other 09-13-2023 14:40-0500 Body temperature 98.1 [degF] Anand Garcia Other [facility] Other 09-13-2023 14:40-0500 Body weight 83.92 kg Anand Garcia Other [facility] Other 09-13-2023 14:40-0500 Diastolic blood pressure 86 mm[Hg] Anand Garcia Other [facility] Other 09-13-2023 14:40-0500 Respiratory rate 18 /min Anand Garcia Other [facility] Other 09-13-2023 14:40-0500 SaO2% (BldA) [Mass fraction] 97 % Anand Garcia Other [facility] Other 09-13-2023 14:40-0500 Systolic blood pressure 126 mm[Hg] Anand Garcia Other [facility] Other 06-09-2023 14:40-0400 Body height 170.18 cm Anand Garcia Other [facility] Other 06-09-2023 14:40-0400 Body mass index (BMI) [Ratio] 28.5 kg/m2 Anand Garcia Other [facility] Other 06-09-2023 14:40-0400 Body temperature 98.3 [degF] Anand Garcia Other [facility] Other 06-09-2023 14:40-0400 Body weight 82.56 kg Anand Garcia Other [facility] Other 06-09-2023 14:40-0400 Diastolic blood pressure 86 mm[Hg] Anand Garcia Other [facility] Other 06-09-2023 14:40-0400 Respiratory rate 18 /min Anand Garcia Other [facility] Other 06-09-2023 14:40-0400 SaO2% (BldA) [Mass fraction] 98 % Anand Garcia Other [facility] Other 06-09-2023 14:40-0400 Systolic blood pressure 138 mm[Hg] Anand Garcia Other [facility] Other 01-14-2023 15:00-0400 Body height 170.18 cm Marianne Yemi Other [facility] Other 01-14-2023 15:00-0400 Body mass index (BMI) [Ratio] 27.58 kg/m2 Marianne Yemi Other [facility] Other 01-14-2023 15:00-0400 Body temperature 97.3 [degF] Marianne Yemi Other [facility] Other 01-14-2023 15:00-0400 Body weight 79.88 kg Marianne Yemi Other [facility] Other 01-14-2023 15:00-0400 Diastolic blood pressure 82 mm[Hg] Marianne Yemi Other [facility] Other 03-16-2023 15:00-0400 Respiratory rate 18 /min Marianne Yemi Other [facility] Other 01-14-2023 15:00-0400 SaO2% (BldA) [Mass fraction] 100 % Marianne Yemi Other [facility] Other 01-14-2023 15:00-0400 Systolic blood pressure 130 mm[Hg] Marianne Yemi Other [facility] Other 11-30-2022 15:40-0500 Body height 170.18 cm Anand Garcia Other [facility] Other 11-30-2022 15:40-0500 Body mass index (BMI) [Ratio] 27.17 kg/m2 Anand Garcia Other [facility] Other 11-30-2022 15:40-0500 Body temperature 97 [degF] Anand Garcia Other [facility] Other 11-30-2022 15:40-0500 Body weight 78.7 kg Anand Garcia Other [facility] Other 11-30-2022 15:40-0500 Diastolic blood pressure 86 mm[Hg] Anand Garcia Other [facility] Other 11-30-2022 15:40-0500 Respiratory rate 18 /min Anand Garcia Other [facility] Other 11-30-2022 15:40-0500 SaO2% (BldA) [Mass fraction] 98 % Anand Garcia Other [facility] Other 11-30-2022 15:40-0500 Systolic blood pressure 128 mm[Hg] Anand Garcia Other [facility] [employer] Other 11-16-2022 12:54-0500 Body height 170.2 cm Anaid Garrick WEALTH MANAGEMENT DIRECTOR.ROADS AND PARKING LOTS SWEEPER OPERATOR Work Phone: [facility] 11-16-2022 12:54-0500 Body weight 78.47 kg Anaid Garrick WEALTH MANAGEMENT DIRECTOR.ROADS AND PARKING LOTS SWEEPER OPERATOR Work Phone: [facility] 11-16-2022 12:54-0500 Diastolic blood pressure 89 mm[Hg] Anaid Garrick WEALTH MANAGEMENT DIRECTOR.ROADS AND PARKING LOTS SWEEPER OPERATOR Work Phone: [facility] 11-16-2022 12:54-0500 Heart rate 76 /min Anaid Garrick WEALTH MANAGEMENT DIRECTOR.ROADS AND PARKING LOTS SWEEPER OPERATOR Work Phone: [facility] 11-16-2022 12:54-0500 Systolic blood pressure 147 mm[Hg] Anaid Garrick WEALTH MANAGEMENT DIRECTOR.ROADS AND PARKING LOTS SWEEPER OPERATOR Work Phone: [facility] 08-26-2022 15:40-0400 Body height 170.18 cm Anand Garcia Other [facility] [employer] Other 07-24-2022 15:30-0400 Body weight 77.56 kg Cresencio Robles DO Work Phone: [facility] 07-24-2022 15:30-0400 Diastolic blood pressure 89 mm[Hg] Cresencio Robles DO Work Phone: [facility] 07-24-2022 15:30-0400 Heart rate 62 /min Cresencio Robles DO Work Phone: [facility] 07-24-2022 15:30-0400 Systolic blood pressure 144 mm[Hg] Cresencio Robles DO Work Phone: [facility] 05-25-2022 15:40-0400 Body height 170.18 cm Anand Garcia Other [facility] Other 05-25-2022 15:40-0400 Body mass index (BMI) [Ratio] 27.09 kg/m2 Anand Josesitoromelia Other [facility] Other 05-25-2022 15:40-0400 Body temperature 97.2 [degF] Anand Garcia Other [facility] Other 05-25-2022 15:40-0400 Body weight 78.47 kg Anand Garcia Other [facility] Other 05-25-2022 15:40-0400 Diastolic blood pressure 82 mm[Hg] Anand Garcia Other [facility] Other 05-25-2022 15:40-0400 Respiratory rate 18 /min Anand Garcia Other [facility] Other 05-25-2022 15:40-0400 SaO2% (BldA) [Mass fraction] 98 % Anand Josesitoromelia Other [facility] Other 05-25-2022 15:40-0400 Systolic blood pressure 124 mm[Hg] Anand Bellamyromelia Other [facility] Other 02-12-2022 15:40-0400 Body height 170.18 cm Marianne Yemi Other [facility] Other 02-12-2022 15:40-0400 Body mass index (BMI) [Ratio] 27.09 kg/m2 Marianne Yemi Other [facility] Other 02-12-2022 15:40-0400 Body temperature 97 [degF] Marianne Yemi Other [facility] Other 02-12-2022 15:40-0400 Body weight 78.47 kg Marianne Yemi Other [facility] Other 02-12-2022 15:40-0400 Diastolic blood pressure 80 mm[Hg] Marianne Yemi Other [facility] Other 02-12-2022 15:40-0400 Respiratory rate 18 /min Marianne Yemi Other [facility] Other 02-12-2022 15:40-0400 SaO2% (BldA) [Mass fraction] 99 % Marianne Yemi Other [facility] Other 02-12-2022 15:40-0400 Systolic blood pressure 130 mm[Hg] Marianne Yemi Other [facility] Other 02-06-2022 10:00-0400 Body height 170.18 cm Dario Quintanillaisle II Other [facility] Other 02-06-2022 10:00-0400 Body mass index (BMI) [Ratio] 27.09 kg/m2 Dario Peter II Other [facility] Other 02-06-2022 10:00-0400 Body weight 78.47 kg Dario Greer II Other [facility] Other 01-19-2022 17:00-0400 Body height 170.18 cm Anand Garcia Other [facility] Other 01-19-2022 17:00-0400 Body mass index (BMI) [Ratio] 27.09 kg/m2 Anand Garcia Other [facility] Other 01-19-2022 17:00-0400 Body temperature 96.7 [degF] Anand Garcia Other [facility] Other 01-19-2022 17:00-0400 Body weight 78.47 kg Anand Garcia Other [facility] Other 01-19-2022 17:00-0400 Diastolic blood pressure 84 mm[Hg] Anand Garcia Other [facility] Other 01-19-2022 17:00-0400 Respiratory rate 18 /min Anand Garcia Other [facility] Other 01-19-2022 17:00-0400 SaO2% (BldA) [Mass fraction] 99 % Anand Garcia Other [facility] Other 01-19-2022 17:00-0400 Systolic blood pressure 130 mm[Hg] Anand Garcia Other [facility] Other Encounters Encounter Date Encounter Type Care Provider Facility Start: 06-27-2025 End: 06-27-2025 ambulatory Anand Garcia DO Work Phone: [facility] Work Phone: Start: 06-27-2025 End: 06-27-2025 Patient encounter procedure Anand Garcia DO -[facility] [place] Work Phone: Start: 06-22-2025 End: 06-22-2025 Departed Referred Ely Shultz WEALTH MANAGEMENT DIRECTOR -Lab [facility] Work Phone: Start: 06-22-2025 End: 06-22-2025 ambulatory Anand Garcia DO Work Phone: [facility] Work Phone: Start: 06-22-2025 End: 06-22-2025 Patient encounter procedure Ely Shultz WEALTH MANAGEMENT DIRECTOR -[facility] [place] Work Phone: Start: 06-20-2025 End: 06-21-2025 Refill Simona Carlson APRN.ROADS AND PARKING LOTS SWEEPER OPERATOR Work Phone: Neurology Comment on above: Refill Request ([facility] managed refill) Start: 06-16-2025 Non-patient / Non-visit Anand Pillai in [facility] Work Phone: Start: 05-14-2025 End: 05-14-2025 ambulatory Anand Garcia DO Work Phone: [facility] Work Phone: Start: 05-14-2025 End: 05-14-2025 Patient encounter procedure Ralph Bravo [facility] Work Phone: Start: 04-23-2025 End: 04-23-2025 Patient encounter procedure Ralph Bravo [facility] Work Phone: Start: 04-19-2025 End: 04-19-2025 Bamboo flowsheet Edith Kelbley AIRFREIGHT LOADING SUPERVISOR [facility] Start: 04-19-2025 End: 04-19-2025 Bamboo flowsheet Edith Kelbley AIRFREIGHT LOADING SUPERVISOR [facility] Start: 04-19-2025 End: 04-19-2025 ambulatory Edith Kelbley AIRFREIGHT LOADING SUPERVISOR [facility] Comment on above: Tendinitis of left r otator cuff (Primary Dx); Tear of left rotator cuff, unspecified tear extent, unspecified whether traumatic Start: 04-17-2025 End: 04-17-2025 Bamboo flowsheet Edith Kelbley AIRFREIGHT LOADING SUPERVISOR [facility] Start: 04-17-2025 End: 04-17-2025 Bamboo flowsheet Edith Kelbley AIRFREIGHT LOADING SUPERVISOR [facility] Start: 04-17-2025 End: 04-17-2025 ambulatory Edith Kelbley AIRFREIGHT LOADING SUPERVISOR [facility] Comment on above: Tendinitis of left r otator cuff (Primary Dx); Tear of left rotator cuff, unspecified tear extent, unspecified whether traumatic Start: 04-12-2025 End: 06-12-2025 Bamboo flowsheet Jalen Magana AIRFREIGHT LOADING SUPERVISOR [facility] Start: 04-12-2025 End: 04-12-2025 Bamboo flowsheet Jalen Magana AIRFREIGHT LOADING SUPERVISOR [facility] Start: 04-12-2025 End: 04-12-2025 ambulatory Jalen Magana AIRFREIGHT LOADING SUPERVISOR [facility] Comment on above: Tendinitis of left r otator cuff (Primary Dx); Tear of left rotator cuff, unspecified tear extent, unspecified whether traumatic; Other shoulder lesions, left shoulder Start: 04-10-2025 End: 04-10-2025 Bamboo flowsheet Jalen Magana AIRFREIGHT LOADING SUPERVISOR [facility] Start: 04-10-2025 End: 04-10-2025 Bamboo flowsheet Jalen Magana AIRFREIGHT LOADING SUPERVISOR [facility] Start: 04-10-2025 End: 04-10-2025 ambulatory Jalen Magana AIRFREIGHT LOADING SUPERVISOR [facility] Comment on above: Tendinitis of left r otator cuff (Primary Dx); Tear of left rotator cuff, unspecified tear extent, unspecified whether traumatic; Other shoulder lesions, left shoulder Start: 04-05-2025 End: 04-05-2025 Bamboo flowsheet Edith Dickson AIRFREIGHT LOADING SUPERVISOR [facility] Start: 04-05-2025 End: 04-05-2025 Bamboo flowsheet Edith Dickson AIRFREIGHT LOADING SUPERVISOR [facility] Start: 04-05-2025 End: 04-05-2025 ambulatory Edith Dickson AIRFREIGHT LOADING SUPERVISOR [facility] Comment on above: Tendinitis of left r otator cuff (Primary Dx); Tear of left rotator cuff, unspecified tear extent, unspecified whether traumatic; Other shoulder lesions, left shoulder Start: 04-04-2025 End: 04-04-2025 Office outpatient visit 15 minutes Simona Carlson APRN.ROADS AND PARKING [employer]S SWEEPER OPERATOR Work Phone: Neurology Comment on above: Migraine without aur a and without status migrainosus, not intractable (Primary Dx); Migraine with aura and without status migrainosus, not intractable Start: 04-04-2025 End: 04-04-2025 ambulatory SIMONA CARLSON Facility:[facility] Start: 04-03-2025 End: 04-03-2025 ambulatory Jalen Magana AIRFREIGHT LOADING SUPERVISOR [facility] [facility] Comment on above: Tendinitis of left r otator cuff (Primary Dx); Tear of left rotator cuff, unspecified tear extent, unspecified whether traumatic; Other shoulder lesions, left shoulder Start: 03-29-2025 End: 03-29-2025 Bamboo flowsheet Edith Dickson AIRFREIGHT LOADING SUPERVISOR [facility] Start: 03-29-2025 End: 03-29-2025 Bamboo flowsheet Edith Dickson AIRFREIGHT LOADING SUPERVISOR [facility] Start: 03-29-2025 End: 03-29-2025 ambulatory Edith Dickson AIRFREIGHT LOADING SUPERVISOR [facility] Comment on above: Tendinitis of left r otator cuff (Primary Dx); Tear of left rotator cuff, unspecified tear extent, unspecified whether traumatic; Other shoulder lesions, left shoulder Start: 03-27-2025 End: 03-27-2025 Bamboo flowsheet Jalen Izzy AIRFREIGHT LOADING SUPERVISOR [facility] Start: 03-27-2025 End: 03-27-2025 Bamboo flowsheet Jalen Izzy AIRFREIGHT LOADING SUPERVISOR [facility] Start: 03-27-2025 End: 03-27-2025 ambulatory Jalen Magana AIRFREIGHT LOADING SUPERVISOR [facility] Comment on above: Tendinitis of left r otator cuff (Primary Dx); Tear of left rotator cuff, unspecified tear extent, unspecified whether traumatic; Other shoulder lesions, left shoulder Start: 03-22-2025 End: 03-22-2025 ambulatory XAVIER HARRISON Not Available Start: 03-20-2025 End: 03-20-2025 Patient encounter procedure Anand Garcia DO -[facility] Work Phone: Start: 03-20-2025 End: 03-20-2025 Bamboo [...] Start: 03-15-2025 End: 03-15-2025 Bamboo flowsheet Jalen Magana AIRFREIGHT LOADING SUPERVISOR [facility] Start: 03-15-2025 End: 03-15-2025 Bamboo flowsheet Jalen Magana AIRFREIGHT LOADING SUPERVISOR [facility] Start: 03-15-2025 End: 03-15-2025 ambulatory Jalen Magana AIRFREIGHT LOADING SUPERVISOR [facility] Comment on above: Tendinitis of left r otator cuff (Primary Dx); Tear of left rotator cuff, unspecified tear extent, unspecified whether traumatic; Other shoulder lesions, left shoulder Start: 03-13-2025 End: 03-13-2025 Bamboo flowsheet Edith Dickson AIRFREIGHT LOADING SUPERVISOR [facility] Start: 03-13-2025 End: 03-13-2025 Bamboo flowsheet Edith Dickson AIRFREIGHT LOADING SUPERVISOR [facility] Start: 03-13-2025 End: 03-13-2025 ambulatory Edith Dickson AIRFREIGHT LOADING SUPERVISOR [facility] Comment on above: Tendinitis of left r otator cuff (Primary Dx); Tear of left rotator cuff, unspecified tear extent, unspecified whether traumatic; Other shoulder lesions, left shoulder Start: 03-08-2025 End: 03-08-2025 Bamboo flowsheet Jalen Magana AIRFREIGHT LOADING SUPERVISOR [facility] Start: 03-08-2025 End: 03-08-2025 Bamboo flowsheet Jalen Magana AIRFREIGHT LOADING SUPERVISOR [facility] Start: 03-08-2025 End: 03-08-2025 ambulatory Jalen Magana AIRFREIGHT LOADING SUPERVISOR [facility] Comment on above: Tendinitis of left r otator cuff (Primary Dx); Tear of left rotator cuff, unspecified tear extent, unspecified whether traumatic; Other shoulder lesions, left shoulder Start: 03-06-2025 End: 03-06-2025 ambulatory Jalen Magana AIRFREIGHT LOADING SUPERVISOR [facility] Comment on above: Tendinitis of left r otator cuff (Primary Dx); Tear of left rotator cuff, unspecified tear extent, unspecified whether traumatic; Other shoulder lesions, left shoulder Start: 03-05-2025 End: 03-05-2025 ambulatory Anand Garcia DO Work Phone: [facility] Work Phone: Start: 03-05-2025 End: 03-05-2025 Patient encounter procedure Anand Girvin DO Work Phone: [facility] Work Phone: Start: 03-01-2025 End: 03-01-2025 Bamboo flowsheet Jalen Magana AIRFREIGHT LOADING SUPERVISOR [facility] Start: 03-01-2025 End: 03-01-2025 Bamboo flowsheet Jalen Magana AIRFREIGHT LOADING SUPERVISOR [facility] Start: 03-01-2025 End: 03-01-2025 ambulatory Jalen Magana AIRFREIGHT LOADING SUPERVISOR [facility] Comment on above: Tendinitis [...] 02-22-2025 End: 02-22-2025 Bamboo flowsheet Jalen Magana AIRFREIGHT LOADING SUPERVISOR [facility] Start: 02-22-2025 End: 02-22-2025 Bamboo flowsheet Jalen Magana AIRFREIGHT LOADING SUPERVISOR [facility] Start: 02-22-2025 End: 02-22-2025 ambulatory Jalen Magana AIRFREIGHT LOADING SUPERVISOR [facility] Comment on above: Tendinitis of left r otator cuff (Primary Dx); Tear of left rotator cuff, unspecified tear extent, unspecified whether traumatic; Other shoulder lesions, left shoulder Start: 02-20-2025 End: 02-20-2025 Bamboo flowsheet Jalen Magana AIRFREIGHT LOADING SUPERVISOR [facility] Start: 02-20-2025 End: 02-20-2025 Bamboo flowsheet Jalen Magana AIRFREIGHT LOADING SUPERVISOR [facility] Start: 02-20-2025 End: 02-20-2025 ambulatory Jalen Magana AIRFREIGHT LOADING SUPERVISOR [facility] Comment on above: Tendinitis of left r otator cuff (Primary Dx); Tear of left rotator cuff, unspecified tear extent, unspecified whether traumatic; Other shoulder lesions, left shoulder Start: 02-15-2025 End: 02-15-2025 Bamboo flowsheet Xavier Harrison AIRFREIGHT LOADING SUPERVISOR [facility] Start: 02-15-2025 End: 02-15-2025 Bamboo flowsheet Xavier Harrison AIRFREIGHT LOADING SUPERVISOR [facility] Start: 02-15-2025 End: 02-15-2025 ambulatory Xavier Harrison AIRFREIGHT LOADING SUPERVISOR [facility] Comment on above: Tendinitis of left r otator cuff (Primary Dx); Tear of left rotator cuff, unspecified tear extent, unspecified whether traumatic; Other shoulder lesions, left shoulder Start: 02-13-2025 End: 02-13-2025 Bamboo flowsheet Edith Dickson AIRFREIGHT LOADING SUPERVISOR [facility] Start: 02-13-2025 End: 02-13-2025 Bamboo flowsheet Edith Dickson AIRFREIGHT LOADING SUPERVISOR [facility] Start: 02-13-2025 End: 02-13-2025 ambulatory Edith Dickson AIRFREIGHT LOADING SUPERVISOR [facility] Comment on above: Tendinitis [...] 01-22-2025 ambulatory Anand Garcia DO Work Phone: [facility] Work Phone: Start: 01-22-2025 End: 01-22-2025 Patient encounter procedure Anand Garcia DO Work Phone: [facility] Work Phone: Start: 01-22-2025 End: 01-22-2025 Patient encounter procedure Anand Garcia DO Work Phone: [facility] Start: 01-22-2025 End: 01-22-2025 ambulatory Anand Garcia DO Work Phone: [facility] Work Phone: Start: 01-18-2025 End: 01-18-2025 Bamboo flowsheet Jalen Magana AIRFREIGHT LOADING SUPERVISOR [facility] Start: 01-18-2025 End: 01-18-2025 Bamboo flowsheet Jalen Magana AIRFREIGHT LOADING SUPERVISOR [facility] Start: 01-16-2025 End: 01-16-2025 ambulatory JALEN MAGANA Not Available Start: 01-12-2025 End: 01-15-2025 ambulatory KATHRYN FLYNN Not Available Start: 01-10-2025 Non-patient / Non-visit Anand Garcia DO Work Phone: [facility] Work Phone: Start: 01-10-2025 End: 01-10-2025 Admission to same day surgery center Anand Garcia DO Work Phone: [facility] [place] Start: 01-10-2025 End: 01-10-2025 ambulatory Anand Garcia DO Work Phone: [facility] Work Phone: Start: 12-26-2024 End: 12-26-2024 Patient encounter procedure Anand Garcia DO Work Phone: [facility] Work Phone: Start: 12-26-2024 End: 12-26-2024 ambulatory Anand Garcia DO Work Phone: [facility] Work Phone: Start: 12-26-2024 Encounter for preprocedural laboratory examination Ralph Hoff [facility] Start: 12-19-2024 End: 12-19-2024 ambulatory Anand Garcia DO Work Phone: [facility] Work Phone: Start: 12-19-2024 End: 12-19-2024 Patient encounter procedure Anand Garcia DO Work Phone: [facility] [place] Work Phone: Start: 12-18-2024 End: 12-18-2024 ambulatory Anand Garcia DO Work Phone: [facility] Work Phone: Start: 12-18-2024 End: 12-18-2024 Patient encounter procedure Anand Garcia DO Work Phone: [facility] Work Phone: Start: 12-11-2024 End: 12-11-2024 ambulatory Kathryn Flynn PT [facility] Comment on above: Tear of left rotator cuff, unspecified tear extent, unspecified whether traumatic (Primary Dx); Other shoulder lesions, left shoulder Start: 12-07-2024 End: 12-08-2024 Telephone encounter Salma Callejas RN Work Phone: [facility] Start: 12-04-2024 End: 12-04-2024 ambulatory Xavier Harrison AIRFREIGHT LOADING SUPERVISOR [facility] Comment on above: Tear of left rotator cuff, unspecified tear extent, unspecified whether traumatic (Primary Dx); Other shoulder lesions, left shoulder Start: 12-04-2024 End: 12-04-2024 Bamboo flowsheet Xavier Brink AIRFREIGHT LOADING SUPERVISOR [facility] Start: 12-04-2024 End: 12-04-2024 Bamboo flowsheet Xavier Brink AIRFREIGHT LOADING SUPERVISOR [facility] Start: 11-27-2024 End: 11-27-2024 ambulatory Xavier Brink AIRFREIGHT LOADING SUPERVISOR [facility] Comment on above: Tear of left rotator cuff, unspecified tear extent, unspecified whether traumatic (Primary Dx); Other shoulder lesions, left shoulder Start: 11-27-2024 End: 11-27-2024 Bamboo flowsheet Xavier Brink AIRFREIGHT LOADING SUPERVISOR [facility] Start: 11-27-2024 End: 11-27-2024 Bamboo flowsheet Xavier Brink AIRFREIGHT LOADING SUPERVISOR [facility] Start: 11-20-2024 End: 11-20-2024 Bamboo flowsheet Xavier Brink AIRFREIGHT LOADING SUPERVISOR [facility] Start: 11-20-2024 End: 11-20-2024 Bamboo flowsheet Xavier Brink AIRFREIGHT LOADING SUPERVISOR [facility] Start: 11-20-2024 End: 11-20-2024 ambulatory Xavier Brink AIRFREIGHT LOADING SUPERVISOR [facility] Comment on above: Tear of left rotator cuff, unspecified tear extent, unspecified whether traumatic (Primary Dx); Other shoulder lesions, left shoulder Start: 11-16-2024 End: 11-16-2024 ambulatory Anand Garcia DO Work Phone: [facility] Work Phone: Start: 11-16-2024 End: 11-16-2024 Patient encounter procedure Anand Garcia DO Work Phone: [facility] Nephrology Lucio Work Phone: Start: 11-13-2024 End: 11-13-2024 ambulatory Xavier Brink AIRFREIGHT LOADING SUPERVISOR [facility] Comment on above: Tear of left rotator cuff, unspecified tear extent, unspecified whether traumatic (Primary Dx); Other shoulder lesions, left shoulder Start: 11-13-2024 End: 11-13-2024 Bamboo flowsheet Xavier Brink AIRFREIGHT LOADING SUPERVISOR [facility] Start: 11-13-2024 End: 11-13-2024 Bamboo flowsheet Xavier Brink AIRFREIGHT LOADING SUPERVISOR [facility] Start: 11-08-2024 End: 11-08-2024 Office outpatient visit 15 minutes Sanjay Hawkins PA Work Phone: [facility] Comment on above: Other seborrheic adeel matitis (Primary Dx) Start: 11-08-2024 End: 11-08-2024 ambulatory SANJAY HAWKINS Not Available Start: 11-08-2024 End: 11-08-2024 Bamboo flowsheet Sanjay Hawkins PA Work Phone: [facility] Start: 11-08-2024 End: 11-08-2024 Bamboo flowsheet Sanjay Hawkins PA Work Phone: [facility] Start: 11-06-2024 End: 11-06-2024 ambulatory Xavier Brink AIRFREIGHT LOADING SUPERVISOR [facility] Comment on above: Tear of left rotator cuff, unspecified tear extent, unspecified whether traumatic (Primary Dx); Other shoulder lesions, left shoulder Start: 11-06-2024 End: 11-06-2024 Bamboo flowsheet Xavier Brink AIRFREIGHT LOADING SUPERVISOR [facility] Start: 11-06-2024 End: 11-06-2024 Bamboo flowsheet Xavier Brink AIRFREIGHT LOADING SUPERVISOR [facility] Start: 10-30-2024 End: 10-30-2024 [...] / Non-visit Anand Garcia DO Work Phone: [facility] Work Phone: Start: 10-19-2024 End: 10-19-2024 Patient encounter procedure Anand Garcia DO Work Phone: [facility] Work Phone: Start: 10-19-2024 End: 10-19-2024 ambulatory Anand Garcia Facility:[facility] Start: 10-12-2024 End: 10-12-2024 ambulatory ANAND GARCIA Not Available Start: 10-11-2024 End: 10-11-2024 Telephone encounter Jacy Cueva [facility] Delivery Comment on above: Insurance Authorizat ion (NURTEC ODT 75 mg disintegrating tablet); NURTEC ODT 75 mg disintegrating tablet Start: 10-04-2024 End: 10-04-2024 ambulatory SIMONA CARLSON Facility:[facility] Start: 10-04-2024 End: 10-04-2024 Patient encounter procedure Simona Carlson WEALTH MANAGEMENT DIRECTOR.ROADS AND PARKING LOTS SWEEPER OPERATOR Work Phone: Neurology Comment on above: Migraine without aur a and without status migrainosus, not intractable (Primary Dx); Migraine with aura and without status migrainosus, not intractable Start: 09-20-2024 End: 09-20-2024 Patient encounter procedure Anand Garcia DO Work Phone: [facility] Medicine Katherine Work Phone: Start: 08-30-2024 End: 08-30-2024 Office [...] encounter procedure DO Anand Garcia Work Phone: [facility] Work Phone: Start: 08-18-2024 End: 08-18-2024 ambulatory DO Anand Kendell Work Phone: [facility] Work Phone: Start: 07-21-2024 End: 07-26-2024 ambulatory Cresencio Robles DO Work Phone: Neurology Comment on above: Loss of hair Start: 07-20-2024 End: 07-24-2024 Telephone encounter Salma Callejas RN Work Phone: [facility] Home Delivery Comment on above: Insurance Authorizat ion; Qulipta 60MG tablets Start: 06-21-2024 End: 06-21-2024 Patient encounter procedure DO Anand Garcia Work Phone: [facility] Work Phone: Start: 06-09-2024 Refill Simona torrez APRN.ROADS AND PARKING LOTS SWEEPER OPERATOR Work Phone: Neurology Comment on above: Refill Request Start: 06-08-2024 ambulatory Cresencio Robles D O Work Phone: Neurology Comment on above: Prior Authorization needed Start: 06-03-2024 Non-patient / Non-visit DO Maxi Garcia Work Phone: [facility] Work Phone: Start: 03-29-2024 End: 03-29-2024 Patient encounter procedure Simona Carlson APRN.ROADS AND PARKING LOTS SWEEPER OPERATOR Work Phone: Neurology Comment on above: Migraine with aura a nd without status migrainosus, not intractable (Primary Dx); Migraine without aura and without status migrainosus, not intractable Start: 03-03-2024 ambulatory CRESENCIO ROBLES Facility:[facility] Start: 03-03-2024 End: 03-03-2024 Subsequent hospital visit by physician Wilbur Mcbride (I-Stat/1.5t) Work Phone: Radiology Comment on above: Thunderclap headache [G44.53] Start: 03-02-2024 Telephone encounter Deb Jernigan [facility] Start: 12-24-2023 Telephone encounter Cresencio P Bar on DO Work Phone: Neurology Comment on above: Insurance Authorizat ion (Erfyper-Allogf-Imejh Theraputics) Insurance Authorizat ion (Lgrlybm-Kbczwc-Wvtjh Theraputic) Start: 12-20-2023 ambulatory Cresencio P Robles D O Work Phone: Neurology Comment on above: Possible migraine wi th stroke systems Start: 10-13-2023 Telephone encounter Salma rodriguez RN Work Phone: [facility] Comment on above: Insurance Authorizat ion (Aimovig 140MG/ML auto-injectors/) Start: 09-20-2023 End: 09-20-2023 ambulatory Anand Garcia Other [employer] Other Start: 09-20-2023 Telephone encounter Anand Garcia [facility] Start: 09-13-2023 End: 09-13-2023 ambulatory Anand Garcia Other [employer] Other Start: 09-13-2023 Office outpatient vi sit 25 minutes Anand Garcia [facility] Start: 09-09-2023 Telephone encounter Cresencio P Bar on DO Work Phone: Neurology Comment on above: Insurance Authorizat ion (TRUDHESA) Start: 07-29-2023 End: 07-29-2023 ambulatory DO Anand Garcia Work Phone: [facility] Work Phone: Start: 07-29-2023 End: 07-29-2023 Patient encounter procedure DO Anand Garcia Work Phone: [facility] Work Phone: Start: 06-09-2023 End: 06-09-2023 ambulatory Anand Garcia Other [employer] Other Start: 06-09-2023 Office outpatient vi sit 25 minutes Anand Garcia [facility] Start: 01-14-2023 End: 01-14-2023 ambulatory Marianne Yemi Other [employer] Other Start: 01-14-2023 Office outpatient vi sit 25 minutes Marianne Yemi [facility] Nephrology [place] Start: 01-02-2023 End: 01-03-[address] ANAND GARCIA Facility:[facility] Start: 12-29-2022 End: 12-29-2022 ambulatory Anand Garcia Other [employer] Other Start: 12-29-2022 Telephone encounter Anand Garcia [facility] Start: 11-30-2022 End: 11-30-2022 ambulatory Anand Garcia Other [employer] Other Start: 11-30-2022 Office outpatient vi sit 15 minutes Anand Garcia [facility] Start: 11-23-2022 Refill Cresencio Moralez Work Phone: Neurology Comment on above: Refill Request Start: 11-16-2022 End: 11-16-2022 Patient encounter procedure Anaid Mccauley APRN.ROADS AND PARKING LOTS SWEEPER OPERATOR Work Phone: [facility] Comment on [...] to call if they cannot keep this appointment/[phone]/) Start: 10-06-2022 Telephone encounter Salma rodriguez RN Work Phone: [facility] Comment on above: Insurance Authorizat ion (Aimovig 140MG/ML auto-injectors/) Start: 09-28-2022 End: 09-28-2022 ambulatory Anaid Mccauley ROADS AND PARKING LOTS SWEEPER OPERATOR Work Phone: [facility] Center Comment on above: Spinal stenosis of c ervical region (Primary Dx); Cervicalgia; History of fusion of cervical spine; Cervical spondylosis Start: 09-28-2022 End: 09-28-2022 Telemedicine consultation with patient Anaid Mccauley APRN.ROADS AND PARKING LOTS SWEEPER OPERATOR Work Phone: [facility] Start: 09-11-2022 ambulatory No Pcp (Historical) [facility] Start: 08-26-2022 End: 08-26-2022 ambulatory Anand Garcia Other [employer] Other Start: 08-26-2022 Telephone encounter Anand Garcia [facility] Start: 07-29-2022 End: 07-29-2022 ambulatory Anand Garcia Other [employer] Other Start: 07-29-2022 Telephone encounter Anand Garcia [facility] Start: 07-24-2022 End: 07-24-2022 Patient encounter procedure Cresencio Robles DO Work Phone: Neurology Comment on above: Migraine with aura a nd without status migrainosus, not intractable (Primary Dx); Cervicalgia; Migraine without aura and without status migrainosus, not intractable; Bilateral occipital neuralgia Start: 06-02-2022 End: 06-02-2022 Patient encounter procedure DO Anand Garcia Work [facility] Start: 05-27-2022 Telephone encounter Anand Garcia [facility] Start: 05-27-2022 End: 05-28-[address] ANAND GARCIA [facility] Other Start: 05-26-2022 End: 05-27-[address] ANAND GARCIA Facility:[facility] Start: 05-25-2022 End: 05-25-2022 ambulatory Anand Garcia Other [employer] Other Start: 05-25-2022 Office outpatient vi sit 25 minutes Anand Garcia [facility] Start: 05-09-2022 End: 05-10-[address] ANAND GARCIA Facility:[facility] Start: 02-12-2022 End: 02-12-2022 ambulatory Marianne Yemi Other [facility] Other Start: 02-12-2022 Office outpatient vi sit 15 minutes Marianne Yemi [facility] Start: 02-11-2022 End: 02-11-2022 ambulatory Dario Green II Other [employer] Other Start: 02-11-2022 Telephone encounter Dario Greer II [facility] Start: 02-06-2022 End: 02-06-2022 ambulatory Dario Olsenle II Other [facility] Other Start: 02-06-2022 Office outpatient ne w 45 minutes Dario Greer II [facility] Start: 02-03-2022 End: 02-04-[address] ANAND GARCIA Facility:[facility] Start: 01-28-2022 Encounter for preprocedural laboratory examination DR YANNICK ESTRADA [facility] Start: 01-28-2022 End: 01-28-[address] YANNICK ESTRADA Facility:[facility] Start: 01-24-2022 End: 01-25-[address] ANAND GARCIA Facility:[facility] Start: 01-24-2022 End: 01-25-2022 Encounter for preprocedural laboratory examination DR ANAND GARCIA Facility:[facility] Start: 01-20-2022 End: 01-21-[address] ANAND GARCIA Facility:[facility] Start: 01-19-2022 Encounter for preprocedural cardiovascular examination DR YANNICK ESTRADA [facility] Start: 01-19-2022 Encounter for preprocedural laboratory examination DR YANNICK ESTRADA [facility] Start: 01-19-2022 End: 01-19-2022 ambulatory Anand Garcia Other [facility] [employer] Other Start: 01-19-2022 Encounter for other preprocedural examination Anand Garcia [facility] Start: 01-19-2022 Office outpatient vi sit 15 minutes Anand Garcia [facility] Start: 01-15-2022 End: 01-16-[address] YANNICK ESTRADA Facility:[facility] Start: 01-15-2022 End: 01-16-2022 Encounter for preprocedural cardiovascular examination DR YANNICK ESTRADA Facility:[facility] Procedures Date Procedure Procedure Detail Performing Clinician Start: 06-22-2025 Urine culture Anand león DO Work Phone: Start: 01-22-2025 Plain X-ray of left shoulder Anand Garcia DO Work Phone: Start: 01-10-2025 OR Shoulder Scope RCR/Biceps Tendon (Left) Anand Garcia DO Work Phone: Start: 10-19-2024 Plain X-ray of left shoulder Anand Garcia DO Work Phone: Start: 08-18-2024 Screening mammograph y of bilateral breasts DO Anand Garcia Work Phone: Start: 03-03-2024 Mra head w/o contrst material Cresencio Robles DO Work Phone: Start: 07-29-2023 Screening mammograph y of bilateral breasts DO Anand Garcia Work Phone: Start: 11-16-2022 Mri spinal canal cer vical w/o contrast matrl Anaid Mccauley WEALTH MANAGEMENT DIRECTOR.ROADS AND PARKING LOTS SWEEPER OPERATOR Work Phone: Start: 07-17-2022 Adult depression scr eening assessment Cresencio Robles DO Work Phone: Start: 06-02-2022 Screening mammograph y of bilateral breasts DO Anand Garcia Work Phone: Plan of Treatment Date Care Activity Detail Author Start: 11-08-2025 End: 11-08-2025 Patient encounter procedure 11/08/2025 3:30 PM EST Office Visit [facility] [address] [place] [address] Sanjay Hawkins PA [address] [place] [address] [facility] Start: 10-10-2025 End: 10-10-2025 Patient encounter procedure 10/10/2025 1:00 PM EST Office Visit Neurology [address] [place] [address] Simona Carlson, GHISLAINE.ROADS AND PARKING LOTS SWEEPER OPERATOR [address] [id number] FOLLOW UP 6 MONTHS Neurology Comment on above: FOLLOW UP 6 MONTHS Start: 10-05-2025 End: 10-05-2025 Patient encounter procedure 10/05/2025 4:00 PM EST Office Visit Neurology [address] [place], [place] [id number] Simona Carlson, GHISLAINE.ROADS AND PARKING LOTS SWEEPER OPERATOR [address] [place] [address] FOLLOW UP 6 MONTHS Neurology Comment on above: FOLLOW UP 6 MONTHS Start: 07-02-2025 [facility] Start: 06-22-2025 Bacteria identified in Urine by Culture Urine Culture [facility] Start: 06-22-2025 End: 06-22-2025 Urine culture [facility] Start: 04-19-2025 End: 04-19-2025 ambulatory [facility] [...] 04/04/2025 4:00 PM EDT Office Visit Neurology [address] [facility] [address] [place] [address] Simona Carlson APRN.ROADS AND PARKING LOTS SWEEPER OPERATOR [address] [place] [address] Return in about 6 months (around 04/04/2025), or if symptoms worsen or fail to improve, for Follow-up. Neurology Comment on above: Return in about 6 mo nths (around 04/04/2025), or if symptoms worsen or fail to improve, for Follow-up. Start: 04-03-2025 End: 04-03-2025 ambulatory 04/03/2025 10:30 AM EDT Treatment [facility] [address] [facility] [address] [place] [address] Jalen Magana AIRFREIGHT LOADING SUPERVISOR [facility] Start: 03-29-2025 End: 03-29-2025 ambulatory [facility] Comment on above: Arrived Start: 03-27-2025 End: 03-27-2025 ambulatory [facility] Comment on above: Arrived Start: 03-22-2025 End: 03-22-2025 ambulatory 03/22/2025 10:30 AM EDT Treatment [facility] [address] [facility] [address] [place] [address] Xavier Harrison AIRFREIGHT LOADING SUPERVISOR [facility] Start: 03-20-2025 End: 03-20-2025 [...] PT [address] [place] [address] Jalen Magana PTA [facility] Start: 03-01-2025 End: 03-01-2025 [...] PT [address] [place] [address] Kathryn Flynn, PT Arrived [facility] Comment on above: Arrived Start: 02-01-2025 End: 02-01-2025 ambulatory 02/01/2025 1:00 PM EDT Treatment [facility] [address] [place] [address] Jalen Magana, AIRFREIGHT LOADING SUPERVISOR [facility] Start: 01-30-2025 End: 01-30-2025 ambulatory 01/30/2025 12:30 PM EDT Treatment [facility] [address] [place] [address] Kathryn Flynn, PT [facility] Start: 01-25-2025 End: 01-25-2025 ambulatory 01/25/2025 1:00 PM EDT Treatment [facility] [address] [place] [address] Jalen Magana, AIRFREIGHT LOADING SUPERVISOR [facility] Start: 01-22-2025 End: 01-22-2025 ambulatory 01/22/2025 1:30 PM EDT Treatment [facility] [address] [facility] [address] [place] [address] Jalen Magana, AIRFREIGHT LOADING SUPERVISOR [facility] Start: 01-22-2025 Plain X-ray of left shoulder XR shoulder LT min 2V* [facility] Start: 01-22-2025 XR Shoulder - left Views [facility] Start: 01-18-2025 End: 01-18-2025 ambulatory 01/18/2025 2:00 PM EDT Treatment [facility] [address] [place] [address] Jalen Magana, AIRFREIGHT LOADING SUPERVISOR Tendinitis of left rotator cuff (Primary Dx) [facility] Comment on above: Tendinitis of left r otator cuff (Primary Dx) Start: 01-10-2025 End: 01-10-2025 [facility] Start: 12-11-2024 End: 12-11-2024 ambulatory 12/11/2024 3:30 PM EST Treatment [facility] [address] [place] [address] Kathryn Flynn, PT [facility] Start: [...] CI PT [address] [place] [address] Xavier Harrison PTA [facility] Start: 11-20-2024 End: 11-20-2024 [...] Evaluation [facility] [address] [facility] [address] [place] [address] Kathryn Flynn, SOBEIDA Arrived [facility] Comment on above: Arrived Start: 10-04-2024 End: 10-04-2024 Patient encounter procedure 10/04/2024 4:00 PM EST Office Visit Neurology [address] [place] [id number] Simona Carlson, GHISLAINE.ROADS AND PARKING LOTS SWEEPER OPERATOR [address] [place] [address] Reason for visit: Specialist In - Person Office Visit Neurology Comment on above: Reason for visit: Sp ecialist In - Person Office Visit Start: 08-30-2024 End: 08-30-2024 Patient encounter procedure 08/30/2024 3:30 PM EDT Office Visit [facility] [address] [place] [address] Sanjay Hawkins PA [address] [place] [address] Arrived [facility]CHER Comment on above: Arrived Start: 07-02-2024 Covid-19 Vaccine ( season) Covid-19 Vaccine ( season) [facility] Start: 07-02-2024 Covid-19 Vaccine () Covid-19 Vaccine () [facility] Start: 07-02-2024 Influenza vaccination C [facility] Start: 03-29-2024 End: 03-29-2024 Patient encounter procedure 03/29/2024 4:00 PM EDT Office Visit Neurology [facility] [address] [address] Simona Carlson, WEALTH MANAGEMENT DIRECTOR.ROADS AND PARKING LOTS SWEEPER OPERATOR [address] [place] [address] Return in about 4 months (around 03/26/2024). Neurology Comment on above: Return in about 4 mo nths (around 03/26/2024). Start: 03-03-2024 End: 03-03-2024 Patient encounter procedure 03/03/2024 12:00 PM EDT Appointment Radiology [address] [place] [address] MRI BRAIN WO IVCON Radiology Comment on above: MRI BRAIN WO IVCON Start: 11-01-2023 Depression Assessment Depression Ass essment [facility] Start: 07-17-2023 Adult depression screening assessment DEPRESSION SCREENING [facility] Start: 07-02-2023 Covid-19 Vaccine () Covid-19 Vaccine () [facility] Start: 07-02-2023 Influenza vaccination Influenza Vacc ine (#1) [facility] Start: 11-01-2022 DEPRESSION ASSESSMENT DEPRESSION ASS ESSMENT [facility] Start: 07-02-2022 Influenza vaccination INFLUENZA (#1) [facility] Start: 01-01-2022 DEPRESSION ASSESSMENT DEPRESSION ASS ESSMENT [facility] Start: 2017 Pneumococcal Vaccine : 50+ (1 of 1 - PCV) Pneumococcal Vaccine: 50+ (1 of 1 - PCV) [facility] Start: 2017 SHINGRIX VACCINE (1 of 2) SHINGRIX VACCINE (1 of 2) [facility] Start: 2012 COLOGUARD (FIT-DNA) COLOGUARD (FIT-D NA) [facility] Start: 2012 Colonoscopy COLONOSCOPY [facility] Start: 2012 COLORECTAL CANCER SCREENING COLORECTAL CANCER SCREENING [facility] Start: [address] COLONOGRAPHY [facility] Start: 2012 DIABETES SCREEN [facility]EN [facility] Start: 2012 Diabetes Screening Diabetes Screenin g [facility] Start: 2012 FECAL OCCULT BLOOD FECAL OCCULT BLOO D [facility] Start: 2012 Lipid 1996 panel - S karyna or Plasma Lipid Screening [facility] Start: 2012 Lipid panel Lipid Screening [facility] Start: 2012 LIPID SCREEN LIPID SCREEN [facility] Start: 2012 Screening for malign ant neoplasm of colon [facility] Start: 2012 SIGMOIDOSCOPY SIGMOIDOSCOPY [facility] Start: 2007 Mammography [facility] Start: 2007 Screening for malign ant neoplasm of breast Mammogram Screening [facility] Start: 1997 HPV TESTING HPV TESTING [facility] Start: 1997 Screening for malign ant neoplasm of cervix HPV Testing [facility] Start: 1988 PAP TESTING PAP TESTING [facility] Start: 1988 Screening for malign ant neoplasm of cervix [facility] Start: 1986 Hepatitis B Vaccine (1 of 3 - 19+ 3-dose series) Hepatitis B Vaccine (1 of 3 - 19+ 3-dose series) [facility] Start: 1986 Urine microalbumin profile [facility] Start: 1985 Anxiety Screening Anxiety Screening [facility] Start: 1985 Depression Screening Depression Scre ening [facility] Start: 1985 HEPATITIS C SCREENING HEPATITIS C [facility] Start: 1985 Hepatitis C screening Hepatitis C [facility] Start: 1985 HIV SCREENING HIV SCREENING [facility] Start: 1985 HIV screening HIV Screening [facility] Start: 1967 COVID-19 VACCINE (#1) COVID-19 VACCI NE (#1) [facility] Start: 1967 HEPATITIS B (1 of 3 - 3-dose series) HEPATITIS B (1 of 3 - 3-dose series) [facility] Start: 1967 Hepatitis B Vaccine (1 of 3 - 3-dose series) Hepatitis B Vaccine (1 of 3 - 3-dose series) [facility] Comprehensive metabo lic 1999 panel - Serum or Plasma [facility] Comprehensive metabo lic 1999 panel - Serum or Plasma [facility] Comprehensive metabo lic 1999 panel - Serum or Plasma [facility] Insulin [Units/volum e] in Serum or Plasma [facility] End: 02-05-2025 MR Brain WO contrast MRI BRAIN WO IVCON Radiology Routine Thunderclap headache 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 starting 01/07/2024 until 02/05/2025 [facility] Work Phone: Comment on above: 1 Occurrences starti ng 01/07/2024 until 02/05/2025 End: 02-05-2025 MRA Head vessels WO contrast MRA BRAIN WO IVCON Radiology Routine Thunderclap headache 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 starting 01/07/2024 until 02/05/2025 [facility] Work Phone: Comment on above: 1 Occurrences starti ng 01/07/2024 until 02/05/2025 End: 10-28-2023 Mri spinal canal cervical w/o contrast matrl MRI CERVICAL SPINE WO IVCON Radiology Routine Cervicalgia History of fusion of cervical spine Cervical spondylosis 1 Occurrences starting 09/28/2022 until 10/28/2023 [facility] Work Phone: Comment on above: 1 Occurrences starti ng 09/28/2022 until 10/28/2023 Patient Education Know your Meds [facility] Work Phone: Renal function 1999 panel - Serum or Plasma [facility] Urine culture [facility] XR Shoulder - left Views [facility] Payers Date Payer Category Payer Unknown [id number] 2024 Self-pay [id number] 2019 [employer] Blue Shield [id number] 2019 Unknown [employer] BLUE CARD PPO OOS [id number] 2019-Present [phone] [address] [place] [address] PPO [id number] 1967 Unknown [id number] 2.16.840.1.047699.3.579.2.5 93 1967 Unknown [id number] 2.16.840.1.861419.3.579.2.5 1967 Unknown [id number] 2.16.840.1.026803.3.579.2.5 93 1967 Unknown [id number] 2.16.840.1.237663.3.579.2.5 93 1967 Unknown [id number] 2.16.840.1.590843.3.579.2.5 93 1967 Unknown [id number] 2.16.840.1.457873.3.579.2.5 93 1967 Unknown [id number] 2.16.840.1.134939.3.579.2.5 93 1967 Unknown [id number] 2.16.840.1.806896.3.579.2.5 93 1967 Unknown [id number] 2.16.840.1.720423.3.579.2.5 93 1967 Unknown [id number] 2.16.840.1.889843.3.579.2.5 93 1967 Unknown [id number] 2.16.840.1.230683.3.579.2.1 259 1967 Unknown [id number] 2.16.840.1.929559.3.579.2.1 259 1967 Unknown [id number] 2.16.840.1.559026.3.579.2.1 259 1967 Unknown [id number] 2.16.840.1.429591.3.579.2.1 259 1967 Unknown [id number] 2.16.840.1.387674.3.579.2.1 259 1967 Unknown [id number] 2.16.840.1.515972.3.579.2.1 259 1967 Unknown [id number] 2.16.840.1.659674.3.579.2.1 259 1967 Unknown [id number] 2.16.840.1.972064.3.579.2.1 259 1965 Unknown [id number] 2.16.840.1.580587.3.579.2.1 259 1967 Unknown [id number] 2.16.840.1.623410.3.579.2.1 259 1967 Unknown [id number] 2.16.840.1.480765.3.579.2.1 259 1967 Unknown [id number] 2.16.840.1.351144.3.579.2.1 259 1967 Unknown [id number] 2.16.840.1.176642.3.579.2.1 259 1967 Unknown [id number] 2.16.840.1.516795.3.579.2.1 259 1967 Unknown [id number] 2.16.840.1.025086.3.579.2.1 259 1967 Unknown [id number] 2.16.840.1.270427.3.579.2.1 259 1967 Unknown [id number] 2.16.840.1.557449.3.579.2.1 259 1967 Unknown [id number] 2.16.840.1.724943.3.579.2.1 259 1967 Unknown [id number] 2.16.840.1.794383.3.579.2.1 259 1967 Unknown [id number] 2.16.840.1.508462.3.579.2.1 259 1967 Unknown [id number] 2.16.840.1.603558.3.579.2.1 259 1967 Unknown [id number] 2.840.1.843103.3.579.2.1 1967 Unknown [id number] 2.16840.1.555543.3.579.2.1 259 1967 Unknown [id number] 2.16840.1.855472.3.579.2.1 259 1967 Unknown [id number] 2.16.840.1.711263.3.579.2.1 1967 Unknown [id number] 2.16840.1.197419.3.579.2.1 1967 Unknown [id number] 2.16840.1.062402.3.579.2.1 259 1967 Unknown [id number] 2.16.840.1.280671.3.579.2.1 1967 Unknown [id number] 2.16.840.1.909263.3.579.2.1 1967 Unknown [id number] 2.16.840.1.500129.3.579.2.1 1967 Unknown [id number] 2.16.840.1.260307.3.579.2.1 259 1967 Unknown [id number] 2.16.840.1.291740.3.579.2.1 259 1967 Unknown [id number] 2.16.840.1.784472.3.579.2.1 259 1967 Unknown [id number] 2.16.840.1.940658.3.579.2.1 259 1959 [facility] [id number] 2.16.840.1.814021.19 Unknown [facility] [id number] Unknown [id number] 2.16.840.1.598711.3.579.2.5 31 Unknown [id number] 2.16.840.1.320730.3.579.2.5 31 Unknown [id number] 2.16.840.1.746669.3.579.2.5 31 Unknown [id number] 2.16.840.1.832328.3.579.2.5 31 Unknown [id number] 2.16.840.1.269393.3.579.2.5 31 Unknown [id number] 2.16.840.1.555773.3.579.2.5 31 Social History Date Type Detail Facility Unknown if ever smoked [facility] Other Start: 11-16-2022 End: 03-29-2024 Sex Assigned At [facility] Start: 1965 Sex Assigned At Female [facility] Start: 01-31-2018 End: 01-10-2025 Tobacco smoking status NHIS Never smoked tobacco [facility] Start: 01-31-2018 End: 11-16-2022 Tobacco use and exposure Smokeless tobacco non-user [facility] Start: 01-29-2021 End: 04-04-2025 Alcohol intake Current drinker of alcohol (finding) [facility] Start: 10-11-2015 History SDOH Alcohol Comment Infrequent [facility] Start: 1965 Sex Assigned At Not on file [facility] Start: 07-14-2022 End: 07-24-2022 Exposure to SARS-CoV-2 (event) Not sure [facility] Start: 11-16-2022 End: 03-29-2024 History of Social function [facility] Start: 07-02-2015 Adult Depression Screening Assessment 1 [facility] Tobacco smoking stat us [facility] Tobacco smoking consumption unknown [facility] Start: 11-16-2024 End: 03-05-2025 Sex Female (finding) [facility] Medical Equipment Procedure Code Equipment Code Equipment Origin al Text Equipment Identifier Dates Tendon/ligament bone anchor, bioabsorbable [id number] [facility] Start: 01-10-2025 Goals Date Patient Goal Desired Activity /State Clinical Notes 08-25-2021 to 06-21-2025 Telephone Encounter - Philomena Carey, [facility] - 06/21/2025 2:51 PM EDTTelephone Encounter - Philomena Carey, [facility] - 06/21/2025 2:51 PM EDT Note Date & Type Note Facility 06-21-2025 Telephone encount er Note Pharmacist Managed Refill Encounter Name: Myrtle Jones Refill authorization request(s) received and reviewed under effective consult agreement. The patient consented to the pharmacy service and agreed to allow medications to be collaboratively managed by the pharmacist. The patient may decline or cancel the agreement at any time. Upon review, it was confirmed that an active patient-provider relationship exists, and the prescriber is a participating physician under the consult agreement. Last office visit in this department: 04/04/2025 Simona Carlson APRN.CNP Last distance health visit in this department: Visit date not found Next appointment in this department: 10/10/2025 Simona Carlson APRN.CNP Requested Prescriptions Signed Prescriptions Disp Refills atogepant (QULIPTA) 60 mg tablet 90 tablet 1 Sig: Take 1 tablet by mouth once daily. Authorizing Provider: SIMONA CARLSON Ordering User: PHILOMENA CAREY The medication(s) fall under category 1: No barriers to continued therapy exist. # of refills approved in this encounter: 1 Philomena Carey RPh [facility] 06-21-2025 Miscellaneous Notes Formattin g of this note is different from the original. Pharmacist Managed Refill Encounter Name: Myrtle Jones Refill authorization request(s) received and reviewed under effective consult agreement. The patient consented to the pharmacy service and agreed to allow medications to be collaboratively managed by the pharmacist. The patient may decline or cancel the agreement at any time. Upon review, it was confirmed that an active patient-provider relationship exists, and the prescriber is a participating physician under the consult agreement. Last office visit in this department: 04/04/2025 Simona Carlson APRN.CNP Last [facility] visit in this department: Visit date not found Next appointment in this department: 10/10/2025 Simona Carlson APRN.CNP Requested Prescriptions Signed Prescriptions Disp Refills atogepant (QULIPTA) 60 mg tablet 90 tablet 1 Sig: Take 1 tablet by mouth once daily. Authorizing Provider: SIMONA CARLSON Ordering User: PHILOMENA CAREY The medication(s) fall under category 1: No barriers to continued therapy exist. # of refills approved in this encounter: 1 Philomena Carey RPh documented in this encounter [facility] 04-23-2025 Evaluation note Diagnosis Onset Date Resolution Biceps tendinitis of left shoulder acute April 23, 2025 11:02am Status post arthroscopy of left shoulder acute April 23, 2025 11:02am Tendonitis of left rotator cuff acute April 23, 2025 11:02am Trigger finger, right middle finger acute April 23, 2025 11:02am Biceps tendinitis of left shoulder acute May 14, 2025 8:52am Status post arthroscopy of left shoulder acute May 14, 2025 8:52am Tendonitis of left rotator cuff acute May 14, 2025 8:52am Trigger finger, right middle finger acute May 14, 2025 8:52am UTI (urinary tract infection) acute June 22 11:24am [facility] Work Phone: 1(701) 451-808906-23-2025 Evaluation note* Diagnosis Onset Date Resolution Status Admit Date Biceps tendinitis of left shoulder a cute April 23, 2025 11:02am Status post arthroscopy of l eft shoulder acute April 23, 2025 11:02am Tendonitis of left rotator cuff acut e April 23, 2025 11:02am Trigger finger, right middle finger acute April 23, 2025 11:02am Biceps tendinitis of left shoulder a cute May 14, 2025 8:52am Status post arthroscopy of l eft shoulder acute May 14, 2025 8:52am Tendonitis of left rotator cuff acut e May 14, 2025 8:52am Trigger finger, right middle finger acute May 14, 2025 8:52am UTI (urinary tract infection) acute June 22, 2025 11:24am Leoncio hy kid w cr kid I-IV acute June 27, 2025 2:35pm Degenerative disc disease, cervical acute June 27, 2025 2:35pm Hyperglycemia acute June 2:35pm Hypertriglyceridemia acute Aug2024 2:35pm Status post arthroscopy of l eft shoulder acute June 27 2:35pm UTI (urinary tract infection) acute June 27, 2025 2:35pm [facility] Work Phone: 1(843) 317-908706-04-2025 History of Present illness Narrative* Simona Carlson, GHISLAINE.[facility] - 04/04/2025 4:00 PM EDT Images from the original [...] more migraines over the past few months. [employer] is working about 80% of the time. [...] treatment: Qulipta, Propranolol, Magnesium Current abortive treatment: [employer] (works about 80% of the time), Excedrin Relieving factors: Medication, laying down, rest/sleep Aura: scotoma (Squiggly lines. Lasts about 30 minutes.) Denies any change in typical migraine/headache pattern. Prior Therapies Duration of Use Dose Reason for Discontinuation Other Therapies Nerve blocks Analgesic Butalbital/acetaminophen/caffeine (Fioricet) Hydrocodone/Acetaminophen (Vicodin, [place]) Anti-Convulsant Topiramate (Topamax, Trokendi XL, Qudexy) Anti-Depressant [...] these with the patient: Yes, Simona Carlson APRN.ROADS AND PARKING LOTS SWEEPER OPERATOR HEADACHE SCORES: 03/22/2024 10/01/2024 03/28/2025 Headache [...] Patent intracranial cerebral arterial circulation by MRA. 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 Date/Time: Mar 03 2024 1:06P [...] vertebrae with counting from the craniocervical junction. 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 Date/Time: Nov 16 2022 11:21A [...] Overuse Headache: Analgesic Butalbital/acetaminophen/caffeine (Fioricet) Hydrocodone/Acetaminophen (Vicodin, [place]) Anti-Migraine Dihydroergotamine (DHE-45, Migranal) Rizatriptan (Maxalt) Sumatriptan [...] Overuse Headache: Analgesic Butalbital/acetaminophen/caffeine (Fioricet) Hydrocodone/Acetaminophen (Vicodin, [place]) Anti-Migraine Dihydroergotamine (DHE-45, Migranal) Rizatriptan (Maxalt) Sumatriptan [...] months, 1 year, PRN Level of service: Rust level 3 (20-29 min). Time spent 20 min on the day of service, which included preparing to see the patient, [id number] patient care, completing clinical documentation, obtaining and/or reviewing separately obtained history, performing a medically appropriate examination, and counseling and educating the patient/family/caregiver. Simona Carlson APRN.ROADS AND PARKING LOTS SWEEPER OPERATOR documented [facility] NoteHNO ID: [id number] Author: SIMONA CARLSON APRN.ROADS AND PARKING LOTS SWEEPER OPERATOR Service: ? Author Type: Nurse Practitioner [...] more migraines over the past few months. [employer] is working about 80% of the time. [...] treatment: Qulipta, Propranolol, Magnesium Current abortive treatment: [employer] (works about 80% of the time), Excedrin Relieving factors: Medication, laying down, rest/sleep Aura: scotoma (Squiggly lines. Lasts about 30 minutes.) Denies any change in typical migraine/headache pattern. Prior Therapies Duration of Use Dose Reason for Discontinuation Other Therapies Nerve blocks Analgesic Butalbital/acetaminophen/caffeine (Fioricet) Hydrocodone/Acetaminophen (Vicodin, [place]) Anti-Convulsant Topiramate (Topamax, Trokendi XL, Qudexy) Anti-Depressant [...] these with the patient: Yes, Simona Carlson, WEALTH MANAGEMENT DIRECTOR.ROADS AND PARKING LOTS SWEEPER OPERATOR HEADACHE SCORES: 03/22/2024 10/01/2024 03/28/2025 Headache [...] have a botox i (more content not included)...[facility]05-20-2025 Evaluation note* Author Anand Garcia [facility] Authored March 20, 2025 3:03p m The above note written by __ _Gilbert Bill____ acting as human recorder, note dictated by Dr. Stiles .I performed the above HPI, ROS, and Examination. I formulated and dictated the treatment plan and was present for entire encounter. Anand Garcia D.O. [facility] Work Phone: [phone]) 296-170705-20-2025 History of Present illness Narrative* Kathryn Flynn, [...] pain today is in left elbow. Precautions: [place] Subjective: Pt states still having pain in [...] to be instructed in home exercise program. Detention Goals: To be met in 10 weeks [...] Please sign below. Date: documented in this encounterThe Rehabilitation [id number] History of Present illness Narrative* Kathryn Flynn PT - 02/27/2025 1:30 PM EDT Physical [...] pain today is in left elbow. Precautions: [place] Subjective: Pt states she noticed swelling in [...] to be instructed in home exercise program. Detention Goals: To be met in 10 weeks [...] Please sign below. Date: documented in this encounterThe Rehabilitation [id number] History of Present illness Narrative* Kathryn Flynn [...] pain today is in left elbow. Precautions: [place] Subjective: Pt presents 4 weeks post op [...] to be instructed in home exercise program. Detention Goals: To be met in 10 weeks [...] Please sign below. Date: documented in this encounterThe Rehabilitation [id number] History of Present illness Narrative* Kathryn Flynn PT - 02/07/2025 2:00 PM EDT Images [...] pain today is in left elbow. Precautions: [place] Subjective: Pt presents 4 weeks post op [...] to be instructed in home exercise program. Type Cutter Goals: To be met in 10 weeks [...] Please sign below. Date: documented in this encounterThe Rehabilitation [id number] Evaluation note* Author Anand Garcia [facility] Authored December 19, 2024 3:58pm The above note written by __ _Gilbert Bill____ acting as human recorder, note dictated by Dr. Stiles .I performed the above HPI, ROS, and Examination. I formulated and dictated the treatment plan and was present for entire encounter. Anand Garcia D.O. [facility] Work Phone: 1(419) 194-314002-18-2025 Evaluation note* Author Anand Garcia [facility] Authored December 19, 2024 2:58pm The above note written by __ _Gilbert Bill____ acting as human recorder, note dictated by Dr. Stiles .I performed the above HPI, ROS, and Examination. I formulated and dictated the treatment plan and was present for entire encounter. Anand Garcia D.O. [facility] Work Phone: 1(646) 777-285102-10-2025 History of Present illness Narrative* Kathryn Flynn, [...] with 2 hands to shoulder level. Precautions: [place] Subjective: Pt states for some reason left shoulder has been hurting more lately. Still doing exercises at home but has discontinued use of weights. Will see next week and would like to hold PT until his recommendation. Follow up Dec 18 w/ Ortho. Pain: 5-04/10 Objective: PT Evaluation (10/30/2024) Left SHOULDER AROM: [...] to be instructed in home exercise program. Detention Goals: To be met in 10 weeks [...] Please sign below. Date: documented in this encounterThe Rehabilitation [id number] History of Present illness Narrative* JACOB Mcknight [...] Next Visit: 1 year documented in this encounterThe Rehabilitation [id number] History of Present illness Narrative* Kathryn Flynn, [...] with 2 hands to shoulder level. Precautions: [place] Subjective: Left shoulder Pain: 3/10 Objective: PT [...] to be instructed in home exercise program. Type Cutter Goals: To be met in 10 weeks [...] Please sign below. Date: documented in this encounterThe Rehabilitation [id number] Telephone encounter Note* Telephone Encounter - Jacy Cueva - 10/11/2024 11:50 AM EST Ambulatory Pharmacy Prior Authorization Note Provider Intervention Required?: No- Pharmacy completed on your behalf. Rx Plan: Other: [facility] Drug: NURTEC ODT 75 mg disintegrating tablet Cover My Meds Palafox: Done via Epic Determination: Approved Prior Authorization/Case #: [id number] Prior Authorization Expiration: 10/10/2025 Time to PA [...] refills. Prescriptions will now be processed through [facility] for determination of next steps. For questions relating to this submission, please contact [facility] at [phone] [facility]12-11-2024 Miscellaneous Notes* Telephone Encounter - Jacy Cueva - 10/11/2024 11:50 AM EST Ambulatory Pharmacy Prior Authorization Note Provider Intervention Required?: No- Pharmacy completed on your behalf. Rx Plan: Other: [facility] Drug: NURTEC ODT 75 mg disintegrating tablet Cover My Meds Palafox: Done via Epic Determination: Approved Prior Authorization/Case #: [id number] Prior Authorization Expiration: 10/10/2025 Time to PA [...] refills. Prescriptions will now be processed through [facility] for determination of next steps. For questions relating to this submission, please contact [facility] at [phone] documented in this encounterKeenan [facility] Hospital12-04-2024 Instructions* Patient Instructions* Simona Carlson APRN.CNP - 10/04/2024 4:19 PM EST Rimegepant (Nurtec) - 75 mg ODT Take 1 tablet at onset of headache/migraine. Only take 1 tablet as single dose in 24 hour period. Potential side effects include nausea. documented in this encounterKeenan [facility] Hospital12-04-2024 History of Present illness Narrative* Simona Carlson [...] Nerve blocks Analgesic Butalbital/acetaminophen/caffeine (Fioricet) Hydrocodone/Acetaminophen (Vicodin, [place]) Anti-Convulsant Topiramate (Topamax, Trokendi XL, Qudexy) Anti-Depressant [...] these with the patient: Yes, Simona Carlson APRN.ROADS AND PARKING LOTS SWEEPER OPERATOR HEADACHE SCORES: 11/22/2023 03/22/2024 10/01/2024 Headache [...] Patent intracranial cerebral arterial circulation by MRA. 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 Date/Time: Mar 03 2024 1:06P [...] vertebrae with counting from the craniocervical junction. 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 Date/Time: Nov 16 2022 11:21A [...] alternative [facility] Will [facility] Zav[facility] next step if needed. [...] Overuse Headache: Analgesic Butalbital/acetaminophen/caffeine (Fioricet) Hydrocodone/Acetaminophen (Vicodin, [place]) Anti-Migraine Dihydroergotamine (DHE-45, Migranal) Rizatriptan (Maxalt) Sumatriptan [...] Overuse Headache: Analgesic Butalbital/acetaminophen/caffeine (Fioricet) Hydrocodone/Acetaminophen (Vicodin, [place]) Anti-Migraine Dihydroergotamine (DHE-45, Migranal) Rizatriptan (Maxalt) Sumatriptan [...] which included preparing to see the patient, [id number] patient care, completing clinical documentation, obtaining and/or reviewing separately obtained history, performing a medically appropriate examination, counseling and educating the patient/family/caregiver, and ordering medications, tests, or procedures. Simona Carlson APRN.QUIQUE documented in this encounterKeenan [facility] Hospital12-04-2024 NoteHNO ID: [id number] Author: SIMONA CARLSON APRN.CNP Service: ? Author Type: Nurse Practitioner Type: [...] Follow-up Impression and Plan from last visit: [facility] 03/29/2024 with Me. Myrtle Jones is [...] Nerve blocks Analgesic Butalbital/acetaminophen/caffeine (Fioricet) Hydrocodone/Acetaminophen (Vicodin, [place]) Anti-Convulsant Topiramate (Topamax, Trokendi XL, Qudexy) Anti-Depressant [...] these with the patient: Yes, Simona Carlson APRN.ROADS AND PARKING LOTS SWEEPER OPERATOR HEADACHE SCORES: 11/22/2023 03/22/2024 10/01/2024 Headache [...] not have a herve (more content not included)...[facility]11-20-2024 Evaluation note* Author Anand Garcia [facility] Authored September 20, 2024 6:41pm I performed the above HPI, R OS, and Examination. I formulated and dictated the treatment plan and was present for entire encounter. Anand Garcia D.O. [facility] Work Phone: 1(121) 885-408510-30-2024 History of Present illness Narrative* JACOB Mcknight [...] Next Visit: 2 months documented in this encounterThe Rehabilitation [id number] Telephone encounter Note* Telephone Encounter - Salma Callejas RN - 07/24/2024 8:54 AM EDT Ambulatory Pharmacy Prior Authorization Note Provider Intervention Required?: No- Pharmacy completed on your behalf. Rx Plan: Other: [facility] Drug: Qulipta 60MG tablets Cover My Meds Palafox: [id number] Determination: Approved Prior Authorization/Case #: [id number] Prior Authorization Expiration: 07/20/2025 Time to PA [...] refills. Prescriptions will now be processed through [facility] for determination of next steps. For questions relating to this submission, please contact [facility] at [phone] [facility] Work Phone: 1(539) 244-991409-23-2024 Miscellaneous Notes* Telephone Encounter - Salma Callejas RN - 07/24/2024 8:54 AM EDT Ambulatory Pharmacy Prior Authorization Note Provider Intervention Required?: No- Pharmacy completed on your behalf. Rx Plan: Other: [facility] Drug: Qulipta 60MG tablets Cover My Meds Palafox: [id number] Determination: Approved Prior Authorization/Case #: [id number] Prior Authorization Expiration: 07/20/2025 Time to PA [...] refills. Prescriptions will now be processed through [facility] for determination of next steps. For questions relating to this submission, please contact [facility] at [phone] * Telephone Encounter - Salma Callejas RN - 07/20/2024 4:56 PM EDT [facility] received prescription(s) for Qulipta 60MG tablets . Benefits investigation was conducted, indicating that a prior authorization is required. PA was initiated and pending review through [employer]. All pertinent clinical information was submitted to insurance. PA done via: [facility]- Palafox [id number] Salma Callejas RN [facility] P: , F: documented in this encounterKeenan Private Hospital09-19-2024 Telephone encounter Note * Telephone Encounter - aSlma Callejas RN - 07/20/2024 4:56 PM EDT [facility] received prescription(s) for Qulipta 60MG tablets . Benefits investigation was conducted, indicating that a prior authorization is required. PA was initiated and pending review through [employer]. All pertinent clinical information was submitted to insurance. PA done via: [facility] Palafox [id number] Salma Callejas RN [facility] P: , F: [facility]08-21-2024 Evaluation note* Author Anand Garcia [facility] Authored June 21, 2024 3: 31pm The above note written by __ _Gilbert Bill____ acting as human recorder, note dictated by Dr. Stiles .I performed the above HPI, ROS, and Examination. I formulated and dictated the treatment plan and was present for entire encounter. Anand Garcia D.O. [facility] Work Phone: 1(729) 957-225508-09-2024 Telephone encounter Note* Telephone Encounter - Simona Carlson APRN.CNP - 06/09/2024 11:38 AM EDT The following approved medication requests have been transmitted electronically. Requested Prescriptions Signed Prescriptions Disp Refills atogepant (QULIPTA) 60 mg tablet 30 tablet 11 Sig: Take 1 tablet (60 mg) by mouth once daily. Authorizing Provider: SIMONA CARLSON APRN.CNP June 09, 2024 11:38 AM [facility]08-09-2024 Miscellaneous Notes* Telephone Encounter - Simona Carlson [...] Name: [facility] documented in this encounterKeenan Private Hospital08-09-2024 Telephone encounter Note * Telephone Encounter - [...] once daily. Pharmacy Name: [facility]2024 History of Present illness Narrative* Simona Carlson APRN.ROADS AND PARKING LOTS SWEEPER OPERATOR - 03/29/2024 4:00 PM EDT Images [...] Follow-up Impression and Plan from last visit: [facility] 11/26/[address] Robles. Myrtle Jones [...] Nerve blocks Analgesic Butalbital/acetaminophen/caffeine (Fioricet) Hydrocodone/Acetaminophen (Vicodin, [place]) Anti-Convulsant Topiramate (Topamax, Trokendi XL, Qudexy) Anti-Depressant [...] these with the patient: Yes, Simona Carlson APRN.ROADS AND PARKING LOTS SWEEPER OPERATOR HEADACHE SCORES: 07/14/2023 11/22/2023 03/22/2024 Headache [...] Patent intracranial cerebral arterial circulation by MRA. 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 Date/Time: Mar 03 2024 1:06P [...] vertebrae with counting from the craniocervical junction. Warehouse Technician: PSCB Transcribe Date/Time: Nov 16 2022 11:21A [...] Overuse Headache: Analgesic Butalbital/acetaminophen/caffeine (Fioricet) Hydrocodone/Acetaminophen (Vicodin, [place]) Anti-Migraine Dihydroergotamine (DHE-45, Migranal) Rizatriptan (Maxalt) Sumatriptan [...] Overuse Headache: Analgesic Butalbital/acetaminophen/caffeine (Fioricet) Hydrocodone/Acetaminophen (Vicodin, [place]) Anti-Migraine Dihydroergotamine (DHE-45, Migranal) Rizatriptan (Maxalt) Sumatriptan [...] which included preparing to see the patient, [id number] patient care, completing clinical documentation, obtaining and/or reviewing separately obtained history, performing a medically appropriate examination, and counseling and educating the patient/family/caregiver. Simona Carlson APRN.ROADS AND PARKING LOTS SWEEPER OPERATOR documented in this encounterKeenan [facility]05-[facility]-2024 Miscellaneous Notes* [facility] - Elo Dunaway, call center operator - 03/03/2024 12:00 PM EDT Radiology Service [...] PATIENT PRESENTS WITH AN IMPLANTABLE OR ATTACHED C SOFTWARE ENGINEER: No RADIOLOGY DEPARTMENT: MR; Exam(s) Completed: Head: Routine Brain Hoh of [place] MRA PERIPHERAL IV DATA: Not applicable SIGNED BY: WILBUR Jansen March 03, 2024 12:42 PM documented in this encounterKeenan Private Hospital05-03-2024 Progress note* [facility] - Elo Dunaway [...] PATIENT PRESENTS WITH AN IMPLANTABLE OR ATTACHED C SOFTWARE ENGINEER: No RADIOLOGY DEPARTMENT: MR; Exam(s) Completed: Head: Routine Brain Hoh of [place] MRA PERIPHERAL IV DATA: Not applicable SIGNED BY: WILBUR Janesn March 03, 2024 12:42 PM [facility]05-02[facility]24 Telephone encounter Note* Telephone Encounter - Deb Jernigan - 03/02/2024 2:19 PM EDT Appointment reminder call-spoke with patient -gave directions to office [facility]05-02-2024 Miscellaneous Notes* Telephone Encounter - Deb Jernigan - 03/02/2024 2:19 PM EDT Appointment reminder call-spoke with patient -gave directions to office documented in this encounterKeenan [facility] Hospital02-23-2024 Miscellaneous Notes* Telephone Encounter - Katia Alexander - 12/24/2023 10:39 AM EST Completed over [facility]: MYRTLE JONES Palafox: [id number] - [place] Drug Ubrelvy 100MG tablets Form [facility] Commercial Electronic PA Form (2016 NCPDP) Approvedtoday Your request was approved based on the initial information provided at the time of the coverage request submission. Please allow additional time for the final decision to be made and added to the patient's account. Katia Alexander documented in this encounterKeenan Private Hospital02-23-2024 Miscellaneous Notes* Telephone Encounter - Katia Alexander - 12/24/2023 10:24 AM EST Completed PA over CMM: MYRTLE JONES Palafox: [id number] - [place] Drug Qulipta 60MG tablets Form [facility] Commercial Electronic PA Form (2016 NCPDP) Approvedtoday Your request was approved based on the initial information provided at the time of the coverage request submission. Please allow additional time for the final decision to be made and added to the patient's account. Katia Alexander documented in this encounterKeenan Private Hospital02-22-2024 Miscellaneous Notes* Telephone Encounter - Evelyne Garcia - 12/23/2023 11:12 AM EST Patient last seen on 11/26/23. documented in this encounterKeenan Private Hospital12-20-2023 Miscellaneous Notes* Telephone Encounter - Salma Callejas RN - 10/20/2023 1:25 PM EST Ambulatory Pharmacy Prior Authorization Note Provider Intervention Required?: No- Pharmacy completed on your behalf. Rx Plan: Other: bcbs Drug: Aimovig 140MG/ML auto-injectors Cover My Meds Palafox: [id number] Determination: Approved Prior Authorization/Case #: [id number] Prior Authorization Expiration: 10/16/2024 Time to PA [...] refills. Prescriptions will now be processed through [facility] for determination of next steps. For questions relating to this submission, please contact [facility] at [phone] * Telephone Encounter - Salma Callejas RN - 10/13/2023 12:52 PM EST [facility] received prescription(s) for Aimovig 140MG/ML auto-injectors. Benefits investigation was conducted, indicating that a prior authorization is required. PA was initiated and pending review through [employer]. All pertinent clinical information was submitted to insurance. CMM Palafox: [id number] Ordering Provider: Cresencio Robles DO Murtaugh, Alisha, RN [facility] P: , F: documented in this encounterKeenan Private Hospital11-13-2023 Evaluation note* Encounter Date Diagnosis Assessment Notes [...] let Dr. Teran know about this. 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 [facility] Other 11-09-2023 Miscellaneous Notes* Telephone Encounter - Katia Alexander - 09/09/2023 2:36 PM EST Completed over CMM: MYRTLE JONES Palafox: [id number] - JACOB Drug Trudhesa 0.725MG/ACT aerosol Form [facility] Commercial Electronic PA Form (2016 MAPD) Approvedtoday Your request was approved based on the initial information provided at the time of the coverage request submission. Please allow additional time for the final decision to be made and added to the patient's account. Katia Alexander documented in this encounterKeenan Private Hospital08-09-2023 Evaluation note* Encounter Date Diagnosis Assessment Notes [...] Creatinine is 1.24. EGFR is 45. Jun, longterm use of carine g (ICD-10 - Z79.899) Jun, Weight gain (ICD-10 - R63.5) We discussed her beginning an exercise program to help her cholesterol, blood sugar, blood pressure, overall health. Jun, Breast cancer screen ing (ICD-10 - Z12.31) Provided her with an order to have a bilateral mammogram done. [facility] Other 03-16-2023 Evaluation note* Encounter Date Diagnosis [...] E83.42) Advised her to resume oral magnesium. [facility] Other 02-28-2023 Evaluation note* Encounter Date Diagnosis Assessment Notes Treatment Notes Treatment Clinical Notes Dec, Degenerative disc disease, cervical (ICD-10 - M50.30) [facility] Other 01-30-2023 Evaluation note* Encounter Date Diagnosis [...] Stay hydrated with plenty of water. Nov, longterm use of carine g (ICD-10 - Z79.899) [...] found that it was swelling at times. [facility] Other 01-24-2023 Miscellaneous Notes* Telephone Encounter - [...] Pharmacy Name: CRISTIAN Garcia [place] [address]-16-2023 Instructions* Patient Instructions* Anaid Mccauley APRN.QUIQUE - 11/16/2022 1:14 PM EST Images from the original note were not included. Mychart with updates. documented in this encounterKeenan Private Hospital01-16-2023 History of Present illness Narrative* Anaid Mccauley APRN.QUIQUE - 11/16/2022 1:00 PM EST Images from [...] nortriptyline, topomax, vicodin Physical Therapy: Online through [facility]. Started in April 2022- current Treating Physicians: [...] needed. Give max sprays allowed per insurance. jorgetriptan (MAXALT) 10 mg tablet 1 tab at [...] gregory), TONB 6. [facility]: [facility] documented in this encounterKeenan Private Hospital01-16-2023 Miscellaneous Notes* [facility] - Elo Dunaway call center operator - 11/16/2022 10:40 AM EST Radiology Service [...] DATA: Not applicable SIGNED BY: Elo Dunaway [employer] November 16, 2022 10:58 AM documented in this encounterKeenan Private Hospital01-16-2023 Progress note* [facility] - Elo Dunaway [...] DATA: Not applicable SIGNED BY: WILBUR Jansen November 16, 2022 10:58 AM [facility]-13-[facility] Miscellaneous Notes* Telephone Encounter - Lori Palmer - 11/13/2022 2:14 PM EST MRI- 11/16/2022 @ 1040am Appointment reminder call - LEFT MESSAGE - with directions to office and the # to call if they cannot keep this appointment [phone] documented in this encounterKeenan Private Hospital12-08-2022 Miscellaneous Notes* Telephone Encounter - Salma Callejas [...] refills. Prescriptions will now be processed through [facility] for determination of next steps. For questions relating to this submission, please contact [facility] [phone] * Telephone Encounter - Salma Callejas RN - 10/06/2022 2:56 PM EST [facility] received prescription(s) for Aimovig 140MG/ML auto-injectors . Benefits investigation was conducted, indicating that a prior authorization is required. PA was initiated and pending review through [employer]. All pertinent clinical information was submitted to insurance. [facility] Palafox: [id number] Ordering Provider: DO Júnior Jara Alisha, RN [facility] P: , F: documented in this encounterKeenan Private Hospital11-28-2022 History of Present illness Narrative* Anaid Mccauley, WEALTH MANAGEMENT DIRECTOR.ROADS AND PARKING LOTS SWEEPER OPERATOR - 09/28/2022 5:06 PM EST Spine [...] nortriptyline, topomax, vicodin Physical Therapy: Online through [facility]. Started in April 2022- current Treating Physicians: [...] Level: 3 - Low documented in this encounterKeenan Private Hospital11-11-2022 History of Present illness Narrative* Kayla Wakefield [...] Care Gap or Scheduling/Wellness visits Payer: Payor: ANTHEM / Plan: BLUE CARD PPO OOS / [...] 11, 2022 3:24 PM documented in this encounterKeenan Private Hospital10-26-2022 Evaluation note* Encounter Date Diagnosis Assessment Notes Treatment Notes Treatment Clinical Notes Aug, Degenerative disc disease, cervical (ICD-10 - M50.30) She voices that her neck continues to hurt, she has bad days, and then she has somewhat bad days, it is never pain free. She went and saw Anaid Mccauley from [facility] and she would like to [...] Aug, Other 2:50 PM - 2:57 PM [facility] Other 09-28-2022 Evaluation note* Encounter Date Diagnosis Assessment Notes Treatment Notes Treatment Clinical Notes Jul, Degenerative disc disease, cervical (ICD-10 - M50.30) [facility] Other 09-23-2022 History of Present illness Narrative* [...] Overuse Headache: Analgesic Butalbital/acetaminophen/caffeine (Fioricet) Hydrocodone/Acetaminophen (Vicodin, [place]) Anti-Migraine Dihydroergotamine (DHE-45, Migranal) Rizatriptan (Maxalt) Sumatriptan [...] Nerve blocks Analgesic Butalbital/acetaminophen/caffeine (Fioricet) Hydrocodone/Acetaminophen (Vicodin, [place]) Anti-Convulsant Topiramate (Topamax, Trokendi XL, Qudexy) Anti-Depressant [...] fluent. Stable primary gait. Cresencio Robles DO [facility] [place] [facility] [address] [place], [place] [id number] Level of service: Est level 2 (10-19 min). Time spent 18 min on the day of service, which included preparing to see the patient, [id number]-vd-[id number] patient care, completing clinical documentation, obtaining and/or reviewing separately obtained history, counseling and educating the patient/family/caregiver, and ordering medications, tests, or procedures. Medical Decision Making: Medical Decision Making Level: 1 - N/A cc: Anand Garcia [address] [place] [address] documented in this encounterKeenan Private Hospital07-25-2022 Evaluation note* Encounter Date Diagnosis Assessment Notes [...] some research on the keto diet. May, longterm use of carine g (ICD-10 - Z79.899) [...] May, Weight gain (ICD-10 - R63.5) May, [place] hump (ICD-10 - E65) May, Low hemoglobin (ICD- 10 - D64.9) I did advise her that her hemoglobin has gone down from 12.7 to 12.2 to 12.0. She did have a colonoscopy in 2018. We discussed that chronic kidney disease can cause this to go down and make someone slightly anemic. This is something that we can continue to monitor. [facility] Other 04-14-2022 Evaluation note* Encounter Date Diagnosis [...] her to lower the vitamin D supplement [facility] Other 04-08-2022 Evaluation note* Encounter Date Diagnosis [...] oral anti-inflammatorie s and Tylenol. Recommended utilizing qjom-lqa-jdrkmez oral anti-inflammatorie s. Recommended adjusting their Tylenol [...] well.. 5. Follow up in 3 months. 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: [id number] [facility], TRANSADMIT DATE: 01/28/2022 06:21:00 RESIN FILTERER DATE: 01/28/2022 22:00 DICTATING PHYSICIAN: YANNICK ESTRADA [...] Estrada DPM on 02/10/2022 03:19 PM EDT [facility] Signed and Approved by: DR YANNICK ESTRADA 02/10/2022 15:19:00[facility]03-23-2022 NotePROCEDURE: XR HIP RT 2 3V W [...] Electronically authenticated by: ANAND KELLY Date: 2022-01-21 07:06[facility]03-21-2022 Evaluation note* Encounter Date Diagnosis Assessment Notes Treatment Notes Treatment Clinical Notes Dec, Foot pain, right (ICD-10 - M79.671) She is having surgery per Dr. Estrada on her right foot. She voices that she has a spur and a bunion. [facility] will have this done at the [facility]. She voices that she can walk and [...] pain was likely coming from her back. [facility] Other 12-06-2021 NoteHOSPITAL REGULATIONS: All Positive and [...] of care. Cole Hidalgo M.D. Dictated: 09/23/2021 [id number] Transcribed: 09/23/2021 *Anand Garcia D.O.Premier HealthComment on above:Result Comment: Electronically Signed By: Cole Hidalgo MD.br\Date and Time Signed: 10/06/21 13:52 [id number] Note [id number]:127[facility] 08-25-2021 NoteHOSPITAL REGULATIONS: All Positive and Important [...] symptoms become more pro (more content not included)...Premier HealthComment on above:Result Comment: Electronically Signed By: Gwen CANNON, Cole Sandoval.bashir\Date and Time Signed: 08/25/21 13:52 EDTEvaluation noteNo InformationNort [employer] Other Evaluation noteNo assessment information available [facility] Work Phone: Evaluation note* Diagnosis Migraine with aura and without status migrainosus, not intractable- Primary Migraine with aura, without mention of intractable migraine without mention of status migrainosus Cervicalgia Migraine without aura and without status migrainosus, not intractable Migraine without aura, without mention of intractable migraine without mention of status migrainosus Bilateral occipital neuralgia Other syndromes affecting cervical region [facility] Diagnosis Spinal stenosis of cervical region- Primary Spinal stenosis in cervical region Cervicalgia History of fusion of cervical spine Arthrodesis status Cervical spondylosis Cervical spondylosis without myelopathy documented in this encounter [facility]* Diagnosis Cervicalgia- Primary History of fusion of cervical spine Arthrodesis status Cervical spondylosis Cervical spondylosis without myelopathy documented in this encounter [facility]* Diagnosis [place] headache- Primary Headache 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 documented in this encounter [facility]* Diagnosis Migraine with aura and without status migrainosus, not intractable- Primary Migraine with aura, without mention of intractable migraine without mention of status migrainosus Migraine without aura and without status migrainosus, not intractable Migraine without aura, without mention of intractable migraine without mention of status migrainosus documented in this encounter [facility]* Diagnosis [place] headache Headache 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 documented in this encounter [facility]* Diagnosis Cervicalgia History of fusion of cervical spine Arthrodesis status Cervical spondylosis Cervical spondylosis without myelopathy documented in this encounter [facility]* Diagnosis Other seborrheic dermatitis- Primary [facility] Diagnosis Migraine without aura and without status migrainosus, not intractable- Primary Migraine without aura, without mention of intractable migraine without mention of status migrainosus Migraine with aura and without status migrainosus, not intractable Migraine with aura, without mention of intractable migraine without mention of status migrainosus documented in this encounter [facility]* Diagnosis Tear of left rotator cuff, [...] lesions, left shoulder documented in this encounter [facility]* Diagnosis Tendinitis of left rotator cuff- Primary Tear of left rotator cuff, unspecified tear extent, unspecified whether traumatic Other shoulder lesions, left shoulder documented in this encounter [facility] HealthcareEvaluation note* Diagnosis Tendinitis of left rotator cuff- Primary Tear of left rotator cuff, unspecified tear extent, unspecified whether traumatic Other shoulder lesions, left shoulder documented in this encounter [facility] HealthcareEvaluation note* Diagnosis Tendinitis of left rotator cuff- Primary Tear of left rotator cuff, unspecified tear extent, unspecified whether traumatic Other shoulder lesions, left shoulder documented in this encounter [facility] HealthcareEvaluation note* Diagnosis Tendinitis of left rotator cuff- Primary Tear of left rotator cuff, unspecified tear extent, unspecified whether traumatic Other shoulder lesions, left shoulder documented in this encounter [facility] note* Diagnosis Tendinitis of left rotator cuff- Primary Tear of left rotator cuff, unspecified tear extent, unspecified whether traumatic Other shoulder lesions, left shoulder documented in this encounter [facility]* Diagnosis Tendinitis of left rotator cuff- Primary Tear of left rotator cuff, unspecified tear extent, unspecified whether traumatic Other shoulder lesions, left shoulder documented in this encounter [facility] HealthcareEvaluation note* Diagnosis Migraine without aura and without status migrainosus, not intractable- Primary Migraine without aura, without mention of intractable migraine without mention of status migrainosus Migraine with aura and without status migrainosus, not intractable Migraine with aura, without mention of intractable migraine without mention of status migrainosus documented [facility] this encounter [facility] Diagnosis Tendinitis of left rotator cuff- Primary Tear of left rotator cuff, unspecified tear extent, unspecified whether traumatic documented in this encounter [facility]* Diagnosis Tendinitis of left rotator cuff- Primary Tear of left rotator cuff, unspecified tear extent, unspecified whether traumatic documented in this encounter [facility] HealthcareHistory general Narrative - Reported* Type Description Date Medical History Pneumonia - 1977 Medical History Uterine Fibroids - 1997 Medical History Last Pap 2009; Dr. Phoenix Medical History Last M[facility] 2009; [facility] Medical History History of EKG; due to Chest Pain at Dr. Prater Medical History Fractured right wrist as a child Medical History lt elbow torn ligame nt - had surgery - [facility] - workers comp Medical History migraine headaches [...] 202804/12/2019 Hospitalization History See Above Surgical Hx [facility] Other [facility] general Narrative - Reported* Type Description Date Medical History Pneumonia - 1977 Medical History Uterine Fibroids - 1997 Medical History Last Pap 2009; Dr. Phoenix Medical History Last Mammogram 2009; [facility] Medical History History of EKG; due to Chest Pain at Dr. Prater Medical History Fractured right wrist as a child Medical History lt elbow torn ligame nt - had surgery - [employer] - workers comp Medical History migraine headaches [...] Surgical History Colonoscopy - Dr. Derek riddle- Valentina - repeat in 10 years 202804/12/2019 Surgical History right foot surgery 01/28/2022 Hospitalization History See Above Surgical Hx [facility] Other History general Narrative - Reported* Type Description Date Medical History Pneumonia - 1977 Medical History Uterine Fibroids - 1997 Medical History Last Pap 2009; Dr. Phoenix Medical History Last Mammogram 2009; [facility] Medical History History of EKG; due to Chest Pain at Dr. Prater Medical History Fractured right wrist as a child Medical History lt elbow torn ligame nt - had surgery - [facility] - workers comp Medical [...] surgery Hospitalization History See Above Surgical Hx [facility] Other Reason for referral (narrative)No reason for referral information availableGerman Hospital Work Phone: Reason for visit Narrative* Rehabilitation - Outpatient (Routine) - Authorized Specialty Diagnoses / Procedures Referred By Corey mauro Referred To Contact Physical Therapy Diagnoses Unspecified rotator cuff tear or rupture of left shoulder, not specified as traumatic Other shoulder lesions, left shoulder Procedures [place] PHYSICAL THERAPY EVALUATION LOW COMPLEX 20 MINS [place] OFFICE/OUTPATIENT NEW HIGH [facility] Ralph Hoff MD [address] [place] [address] Phone: tel: fax: Kathryn Flynn PT Referral ID Status Reason Start Date Expiration Date V isits Requested Visits Authorized [id number] Authorized 10/30/2024 04/28/2025 30 30 [facility] HealthcareReason for visit Narrative* Rehabilitation - Outpatient (Routine) - Authorized Specialty Diagnoses / Procedures Referred By Contac t Referred To Contact Physical Therapy Diagnoses Unspecified rotator cuff tear or rupture of left shoulder, not specified as traumatic Other shoulder lesions, left shoulder Procedures [place] MANUAL THERAPY TQS 1/> REGIONS EACH 15 MINUTES PHYS/OCC THERAPY SS [place] OFFICE/OUTPATIENT NEW HIGH MDM 60 MINUTES [place] THERAPEUTIC PX 1/> AREAS EACH 15 MIN EXERCISES Ralph Hoff MD [address] [place] [address] Phone: tel: fax: Kathryn Flynn, PT Referral ID Status Reason Start Date Expiration Date V isits Requested Visits Authorized [id number] Authorized 11/01/2024 12/06/2024 30 30 [facility] HealthcareReason for visit Narrative* Rehabilitation - Outpatient (Routine) - Authorized Specialty Diagnoses / Procedures Referred By Contac t Referred To Contact Physical Therapy Diagnoses Unspecified rotator cuff tear or rupture of left shoulder, not specified as traumatic Other shoulder lesions, left shoulder Procedures [place] MANUAL THERAPY TQS 1/> REGIONS EACH 15 MINUTES PHYS/OCC THERAPY SS [place] OFFICE/OUTPATIENT NEW HIGH MDM 60 MINUTES [place] THERAPEUTIC PX 1/> AREAS EACH 15 MIN EXERCISES Ralph Hoff MD [address] [place] [address] Phone: tel: fax: Kathryn Flynn, PT Referral ID Status Reason Start Date Expiration Date V isits Requested Visits Authorized [id number] Authorized 11/01/2024 10/31/2025 30 30 [facility] HealthcareReason for visit Narrative* Rehabilitation - Outpatient (Routine) - Authorized Specialty Diagnoses / Procedures Referred By Contac t Referred To Contact Physical Therapy Diagnoses Other shoulder lesions, left shoulder Procedures [place] PHYSICAL THERAPY EVALUATION LOW COMPLEX 20 MINS [place] OFFICE/OUTPATIENT NEW HIGH MDM 60 MINUTES Ralph Hoff MD [address] [place] [address] Phone: tel: fax: Kathryn Flynn, PT Referral ID Status Reason Start Date Expiration Date V isits Requested Visits Authorized [id number] Authorized 01/12/2025 10/31/2025 30 24 [facility] HealthcareReason for visit Narrative* Rehabilitation - Outpatient (Routine) - Authorized Specialty Diagnoses / Procedures Referred By Contac t Referred To Contact Physical Therapy Diagnoses Other shoulder lesions, left shoulder Procedures [place] PHYSICAL THERAPY EVALUATION LOW COMPLEX 20 MINS [place] OFFICE/OUTPATIENT NEW HIGH MDM 60 MINUTES Ralph Hoff MD Phone: tel: fax: Kathryn Flynn, PT Referral ID Status Reason Start Date Expiration Date V isits Requested Visits Authorized [id number] Authorized 01/12/2025 10/31/2025 30 24 [facility] HealthcareReason for visit Narrative* Rehabilitation - Outpatient (Routine) - Authorized Specialty Diagnoses / Procedures Referred By Contac t Referred To Contact Physical Therapy Diagnoses Other shoulder lesions, left shoulder Procedures [place] PHYSICAL THERAPY EVALUATION LOW COMPLEX 20 MINS [place] OFFICE/OUTPATIENT NEW HIGH MDM 60 MINUTES Ralph Hoff MD Phone: tel: fax: Kathryn Flynn, PT Referral ID Status Reason Start Date Expiration Date V isits Requested Visits Authorized [id number] Authorized 01/12/2025 10/31/2025 30 24 [facility] HealthcareReason for visit Narrative* Rehabilitation - Outpatient (Routine) - Closed Specialty Diagnoses / Procedures Referred By Contac t Referred To Contact Physical Therapy Diagnoses Other shoulder lesions, left shoulder Procedures [place] PHYSICAL THERAPY EVALUATION LOW COMPLEX 20 MINS [place] OFFICE/OUTPATIENT NEW HIGH MDM 60 MINUTES Ralph Hoff MD Phone: tel: fax: Kathryn Flynn, PT Referral ID Status Reason Start Date Expiration Date Visits Re quested Visits Authorized [id number] Closed 01/12/2025 10/31/2025 30 24 [facility] Healthcare Summary Purpose Family History Relationship Condition [...] Unknown Unknown Malignant neoplasm of breast Unknown Relationship Condition Age at Onset Recorded Date/T hubert brother Diabetes mellitus Unknown father Unknown Hypertension Unknown Renal failure Unknown mother Diabetes mellitus Unknown Unknown Malignant neoplasm of breast Unknown Malignant neoplasm Unknown Advance Directives Advance Directive Response Recorded [...] Admit Date Degenerative disc disease, cervical Nove 2023 2:46pm Migraine September 20, 2024 2:46pm Shoulder pain, left September 20, 2024 2:46pm Left rotator cuff tear October 19 8:17am Tendonitis of left rotator cuff October 19, 2024 8:17am Atrophic kidney November 16, 2024 3 :33pm Leoncio hy kid w cr kid I-IV November 16, 025 3:33pm Chronic kidney disease, stage 3 [...] 3:33pm Biceps tendinitis of left shoulder Febru sia 2024 3:06pm Tendonitis of left rotator cuff [...] December 18, 2024 3:06pm telephone/review labs/med refill [email or web address] 2:36pm Shoulder pain December 26, 2024 1:53pm Reason for Visit Admit Date Left rotator cuff tear October 19 8:17am Tendonitis of left rotator cuff October 19, 2024 8:17am Atrophic kidney November 16, 2024 3 :33pm Leoncio hy kid w cr kid I-IV November 16, 025 3:33pm Chronic kidney disease, stage 3 unspecif ied November 16, 2024 3:33pm Hypomagnesemia November 16, 2024 3 :33pm Secondary hyperparathyroidism November [id number] 3:33pm Biceps tendinitis of left shoulder Febru sai 2024 3:06pm Tendonitis of left rotator cuff December 18, 2024 3:06pm Chronic kidney disease, stage 3 unspecif ied December 19, 2024 2:36pm Degenerative disc disease, cervical Febr [email or web address] 2:36pm Hyperglycemia December 19, 2024 2:36pm Hypertriglyceridemia [...] December 18, 2024 3:06pm telephone/review labs/med refill r y 2024 2:36pm Shoulder pain December 26, 2024 1:53pm Shoulder pain January 10, 2025 9:1 0am Shoulder pain January 10, 2025 12: 30pm Z98.890 - Other specified postprocedural states January 22, 2025 7:28am 10-14 days post op January 22, 2025 11: 07am Reason for Visit Admit Date Atrophic kidney November 16, 2024 3 :33pm Leoncio hy kid w cr kid I-IV November 16, 025 3:33pm Chronic kidney disease, stage 3 [...] December 18, 2024 3:06pm telephone/review labs/med refill 2024 2:36pm Shoulder pain December 26, 2024 [...] right middle finger May 14, 2025 8:52am Chief Complaint Admit Date 7 WKS April 23, 2025 11:0 2am 3 WEEKS May 14, 2025 8:52 am Poss uti June 22, 2025 11 :24am Reason for Visit Admit Date Biceps tendinitis of left shoulder April 23, [...] right middle finger May 14, 2025 8:52am UTI (urinary tract infection) June 11:24am Chief Complaint Admit Date 7 WKS April 23, 2025 11:0 2am 3 WEEKS May 14, 2025 8:52 am Poss uti June 22, 2025 11 :24am R39.15 June 22, 2025 11 :36am review labs/med refill June 27, 2025 2:35pm Reason for Visit Admit Date Biceps tendinitis of left shoulder April 23, [...] right middle finger May 14, 2025 8:52am UTI (urinary tract infection) June 11:24am Leoncio hy kid w cr kid I-IV June 27 2:35pm Degenerative disc disease, cervical Augu 2024 2:35pm Hyperglycemia June 27, 2025 2: 35pm Hypertriglyceridemia June 27, 2025 2 :35pm Status post arthroscopy of left shoulder June 27, 2025 2:35pm UTI (urinary tract infection) June 2:35pm Reason for Referral Specialty Diagnoses / Procedures Referred By Contac t Referred To Contact Simona Carlson, WEALTH MANAGEMENT DIRECTOR.ROADS AND PARKING LOTS SWEEPER OPERATOR [address] [id number] Referral ID Status Reason Start Date Expiration Date V isits Requested Visits Authorized [id number] Pending Review 10/04/2024 12/03/2024 1 1 Specialty Diagnoses / Procedures Referred By Contac t Referred To Contact MR IMAGING Diagnoses Thunderclap headache Dissection of vertebral artery (HCC) Procedures MRA BRAIN WO IVCON MRA, HEAD W/O CONTRAST , Cresencio P, DO [address] [id number] Mr Imaging [place] [address] Referral ID Status Reason Start Date Expiration Date Visits Requested Visits Authorized [id number] Pending Review Auto-Generat ed Referral 01/07/2024 02/05/2025 1 1 Specialty Diagnoses / Procedures Referred By Contac t Referred To Contact MR IMAGING Diagnoses Thunderclap headache Dissection of vertebral artery (HCC) Procedures MRI BRAIN WO IVCON MRI BRAIN BRAIN STEM W/O CONTRAST MATERIAL Baron Cresencio P, DO [address] [place] [address] Mr Imaging [facility] Referral ID Status Reason Start Date Expiration Date Visits Requested Visits Authorized [id number] Pending Review Auto-Generat ed Referral 01/07/2024 02/05/2025 1 1 Specialty Diagnoses / Procedures Referred By Contac t Referred To Contact MR IMAGING Diagnoses Cervicalgia History of fusion of cervical spine Cervical spondylosis Procedures MRI CERVICAL SPINE WO IVCON MRI SPINAL CANAL CERVICAL W/O CONTRAST Anaid Adams, WEALTH MANAGEMENT DIRECTOR.ROADS AND PARKING LOTS SWEEPER OPERATOR [address] [place] [address] Mr Imaging Referral ID Status Reason Start Date Expiration Date Visits Requested Visits Authorized [id number] Pending Review Auto-Generat ed Referral 2 10/28/2023 1 1 Specialty Diagnoses / Procedures Referred By Contac t Referred To Contact [facility] [place] Diagnoses Cervicalgia Procedures [facility] OFFICE/OUTPATIENT [facility] MDM 60-74 MINUTES Cresencio Robles, DO [address] [place] [address] Referral ID Status Reason Start Date Expiration Date Visits Requested Visits Authorized [id number] Authorized PCP Requested Referral 07/24/2022 07/24/2023 1 1 Additional Source Comments INFORMATION SOURCE (unrecogn ized section and content) DATE CREATED AUTHOR 12/26/2021 [facility] DATE CREATED AUTHOR AUTHOR'S ORGANIZ ATION 01/05/2023 [facility] DATE CREATED AUTHOR AUTHOR'S ORGANIZ ATION 03/04/2024 [facility] DATE CREATED AUTHOR AUTHOR'S ORGANIZ ATION 04/05/2025 [facility] DATE CREATED AUTHOR AUTHOR'S ORGANIZ ATION 04/19/2025 [facility] DATE CREATED AUTHOR AUTHOR'S ORGANIZ ATION 06/25/2025 [facility] REASON FOR VISIT (unrecogniz ed section and content) Reason Comments Follow Up Migraines Reason Comments Neck Pain Reason Comments Insurance Authorization Aimovig 140MG/ML auto-injectors Reason Comments appointment instructions MRI- 11/16/2022 @ 1040amAppointment reminder call - LEFT MESSAGE - with directions to office and the # to call if they cannot keep this [phone] Reason Comments Follow Up Neck and shoulder pa in Reason Onset Date Comments Refill Request 11/23/2022 Reason Comments Insurance Authorization [employer]UDH[employer] Reason Comments Insurance Authorization [employer] [employer] Reason Comments Insurance Authorization [facility] [employer] [employer] Reason Comments Follow Up Reason Onset Date Comments Refill Request 06/09/2024 Specialty Diagnoses / Procedures Referred By Contac t Referred To Contact MR IMAGING Diagnoses Thunderclap headache Dissection of vertebral artery (HCC) Procedures MRI BRAIN WO IVCON MRI BRAIN BRAIN STEM W/O CONTRAST MATERIAL RoblesCresencio, DO [address] [id number] Mr Imaging [place] [facility] Referral ID Status Reason Start Date Expiration Date V isits Requested Visits Authorized [id number] Closed Auto-Generate d Referral 03/03/2024 03/03/2024 1 1 Reason Comments Insurance Authorization Qulipta 60MG tablets Specialty Diagnoses / Procedures Referred By Contac t Referred To Contact MR IMAGING Diagnoses Cervicalgia History of fusion of cervical spine Cervical spondylosis Procedures MRI CERVICAL SPINE WO IVCON MRI SPINAL CANAL CERVICAL W/O CONTRAST Anaid Adams, GHISLAINE.ROADS AND PARKING LOTS SWEEPER OPERATOR [address] [id number] Mr Imaging [place] [address] Referral ID Status Reason Start Date Expiration Date V isits Requested Visits Authorized [id number] Closed Auto-Generate d Referral 11/03/2022 12/01/2022 1 1 Reason Comments Rash Reason Comments Follow Up Reason Comments Insurance Authorization NURTEC ODT 75 mg disintegrating tablet NURTEC ODT 75 mg disintegrating tablet Reason Comments Refill Request [facility] managed refill Care Teams (unrecognized sec tion and content) [...] 2024 Team Status: Active Member Role Status Dates [...] 2024 Team Status: Active Member Role Status Dates Anand Garcia DO Primary Care Provide r, Attending Provider Active Start: June 03, 2024 Team Status: Inactive Member Role Status Dates Anand Garcia DO Primary Care Provide r, Attending Provider Active Start: June 21, 2024 End: June 21, 2024 Team Status: Inactive Member Role Status Dates Anand Garcia DO Primary Care Provider, Attending Pro vider Active Emts Relationship Specialty Start Date End Date Anand Garcia, DO [address] [place] [address] PCP - [facility] 07/02/15 Emts Relationship Specialty Start Date End Date Anand Garcia DO [address] [place] [address] PCP - [facility] 07/02/15 Emts Relationship Specialty Start Date End Date Anand Garcia, DO [address] [place] [phone] PCP - [facility] 07/02/15 Emts Relationship Specialty Start Date End Date Anand Garcia DO [address] [place] [address] PCP - [facility] 07/02/15 Emts Relationship Specialty Start Date End Date Anand Garcia, DO [address] [place] [address] PCP - [facility] 07/02/15 Emts Relationship Specialty Start Date End Date Anand Garcia DO [address] [place] [address] PCP - [facility] 07/02/15 Emts Relationship Specialty Start Date End Date Girvin, Anand C, DO [address] [place] [phone] PCP - [facility] 07/02/15 Emts Relationship Specialty Start Date End Date Anand Garcia, DO [address] [place] [id number] PCP - [facility] 07/02/15 Emts Relationship Specialty Start Date End Date Anand Garcia, DO [address] [place] [address] PCP - [facility] 07/02/15 Emts Relationship Specialty Start Date End Date Anand Garcia, DO [address] [place] [id number] PCP - [facility] 07/02/15 Emts Relationship Specialty Start Date End Date Anand Garcia, DO [address] [place] [id number] PCP - [facility] 07/02/15 Emts Relationship Specialty Start Date End Date Anand Garcia, DO [address] [place] [address] PCP - [facility] 07/02/15 Emts Relationship Specialty Start Date End Date Anand Garcia, DO [address] [place] [id number] PCP - [facility] 07/02/15 Emts Relationship Specialty Start Date End Date Anand Garcia, DO [address] [place] [address] PCP - General Family Medicine 07/02/15 Emts Relationship Specialty Start Date End Date Anand Garcia DO [address] [place] [address] PCP - General Family Medicine 07/02/15 Emts Relationship Specialty Start Date End Date Anand Garcia DO [address] [place] [phone] PCP - General Family Medicine 07/02/15 Team Status: Inactive Member Role Status Tim Garcia DO Primary Care Provider Active S tart: December 18, 2024 End: December 18, 2024 Ralph Hoff DO Attending Provider Active [...] March 05, 2025 End: March 05, 2025 Emts Relationship Specialty Start Date End Date Anand Garcia DO [address] [place] [address] PCP - [facility] 07/02/15 Team Status: Inactive Member Role Status [...] May 14, 2025 End: May 14, 2025 Emts Relationship Specialty Start Date End Date Anand Garcia DO [address] [place] [address] PCP - [facility] 07/02/15 Team Status: Active Member Role Status Dates Anand Garcia DO Primary Care Provider Active S tart: June 16, 2025 Anand Garcia DO Attending Provider Active Star t: June 16, 2025 Team Status: Inactive Member Role Status Dates Anand Garcia DO Primary Care Provider Active S tart: June 22, 2025 End: June 22, 2025 Ely No APRN Attending Provider Active S tart: June 22, 2025 End: June 22, 2025 Team Status: Inactive Member Role Status Dates Ely No , GHISLAINE Attending Provider Active S tart: June 22, 2025 End: June 22, 2025 Team Status: Inactive Member Role Status Dates Anand Garcia DO Primary Care Provider Active S tart: June 27, 2025 End: June 27, 2025 Anand Garcia , Attending Provider Active Star t: June 27, 2025 End: June 27, 2025 Goals (unrecognized section and content) Goals may be documented in a n alternate section Source Comments (unrecognize d section and content) In the event this informatio n is protected by the Federal Confidentiality of Alcohol and Drug Abuse Patient Records regulations: The Federal rules restrict any use of the information to criminally investigate or prosecute any alcohol or drug abuse patient.[facility] the event this information is protected by the Federal Confidentiality of Alcohol and Drug Abuse Patient Records regulations: The Federal rules restrict any use of the information to criminally investigate or prosecute any alcohol or drug abuse patient.[facility] the event this information is protected by the Federal Confidentiality of Alcohol and Drug Abuse Patient Records regulations: The Federal rules restrict any use of the information to criminally investigate or prosecute any alcohol or drug abuse patient.[facility] the event this information is protected by the Federal Confidentiality of Alcohol and Drug Abuse Patient Records regulations: The Federal rules restrict any use of the information to criminally investigate or prosecute any alcohol or drug abuse patient.[facility] the event this information is protected by the Federal Confidentiality of Alcohol and Drug Abuse Patient Records regulations: The Federal rules restrict any use of the information to criminally investigate or prosecute any alcohol or drug abuse patient.[facility] the event this information is protected by the Federal Confidentiality of Alcohol and Drug Abuse Patient Records regulations: The Federal rules restrict any use of the information to criminally investigate or prosecute any alcohol or drug abuse patient.[facility] the event this information is protected by the Federal Confidentiality of Alcohol and Drug Abuse Patient Records regulations: The Federal rules restrict any use of the information to criminally investigate or prosecute any alcohol or drug abuse patient.[facility] the event this information is protected by the Federal Confidentiality of Alcohol and Drug Abuse Patient Records regulations: The Federal rules restrict any use of the information to criminally investigate or prosecute any alcohol or drug abuse patient.[facility] the event this information is protected by the Federal Confidentiality of Alcohol and Drug Abuse Patient Records regulations: The Federal rules restrict any use of the information to criminally investigate or prosecute any alcohol or drug abuse patient.[facility] the event this information is protected by the Federal Confidentiality of Alcohol and Drug Abuse Patient Records regulations: The Federal rules restrict any use of the information to criminally investigate or prosecute any alcohol or drug abuse patient.[facility] the event this information is protected by the Federal Confidentiality of Alcohol and Drug Abuse Patient Records regulations: The Federal rules restrict any use of the information to criminally investigate or prosecute any alcohol or drug abuse patient.[facility] the event this information is protected by the Federal Confidentiality of Alcohol and Drug Abuse Patient Records regulations: The Federal rules restrict any use of the information to criminally investigate or prosecute any alcohol or drug abuse patient.[facility] the event this information is protected by the Federal Confidentiality of Alcohol and Drug Abuse Patient Records regulations: The Federal rules restrict any use of the information to criminally investigate or prosecute any alcohol or drug abuse patient.[facility] the event this information is protected by the Federal Confidentiality of Alcohol and Drug Abuse Patient Records regulations: The Federal rules restrict any use of the information to criminally investigate or prosecute any alcohol or drug abuse patient.[facility] the event this information is protected by the Federal Confidentiality of Alcohol and Drug Abuse Patient Records regulations: The Federal rules restrict any use of the information to criminally investigate or prosecute any alcohol or drug abuse patient.[facility] the event this information is protected by the Federal Confidentiality of Alcohol and Drug Abuse Patient Records regulations: The Federal rules restrict any use of the information to criminally investigate or prosecute any alcohol or drug abuse patient.[facility] the event this information is protected by the Federal Confidentiality of Alcohol and Drug Abuse Patient Records regulations: The Federal rules restrict any use of the information to criminally investigate or prosecute any alcohol or drug abuse patient.[facility] the event this information is protected by the Federal Confidentiality of Alcohol and Drug Abuse Patient Records regulations: The Federal rules restrict any use of the information to criminally investigate or prosecute any alcohol or drug abuse patient.[facility] the event this information is protected by the Federal Confidentiality of Alcohol and Drug Abuse Patient Records regulations: The Federal rules restrict any use of the information to criminally investigate or prosecute any alcohol or drug abuse patient.[facility] HospitalIn the event this information is protected by the Federal Confidentiality of Alcohol and Drug Abuse Patient Records regulations: The Federal rules restrict any use of the information to criminally investigate or prosecute any alcohol or drug abuse patient.[facility] the event this information is protected by the Federal Confidentiality of Alcohol and Drug Abuse Patient Records regulations: The Federal rules restrict any use of the information to criminally investigate or prosecute any alcohol or drug abuse patient.[facility] the event this information is protected by the Federal Confidentiality of Alcohol and Drug Abuse Patient Records regulations: The Federal rules restrict any use of the information to criminally investigate or prosecute any alcohol or drug abuse patient.[facility] Hospital[facility] the event this information is protected by the Federal Confidentiality of Alcohol and Drug Abuse Patient Records regulations: The Federal rules restrict any use of the information to criminally investigate or prosecute any alcohol or drug abuse patient.[facility] the event this information is protected by the Federal Confidentiality of Alcohol and Drug Abuse Patient Records regulations: The Federal rules restrict any use of the information to criminally investigate or prosecute any alcohol or drug abuse patient.[facility] Hospital[facility] the event this information is protected by the Federal Confidentiality of Alcohol and Drug Abuse Patient Records regulations: The Federal rules restrict any use of the information to criminally investigate or prosecute any alcohol or drug abuse patient.[facility] FOR RECORDS PERTAINING TO PATIENTS WHO ARE [...] BE BASED ON THE PRIMARY CLINICAL RECORDS. [facility] Estrogen Gene [facility]. provides no warranty or guarantee of the accuracy or completeness of information in this document.
== END 2025-07-04 15:29 | disposition home or self-care (01) ==
PROVIDERS: PCP Family Medicine; Visit Provider Family Medicine
DX: N39.0 Urinary tract infection, site not specified (principal)
CPT/HCPCS: 81003; 87086

== ENCOUNTER 2025-10-06 08:34 | Outpatient (OUT) | payer BC, SELFPAY ==
--- OUTSIDE RECORDS SUMMARY | 2025-09-29 19:10 | XMS_ITS | Continuity of Care Document ---
Author Organization [facility] Address [address] [place] [address] Phone Care Team Providers Care Shopper'S Aide Name Role Phone Romie Rdz DO Primary Care Provider Romie Rdz DO Attending Provider [phone] Evelyne Hoff APRN Attending Provider Care Teams Visit Care Team Team Status: Active Member Role/Relationship Status Dates Romie Rdz DO Primary Care Provider Active S tart: July 04, 2025 Raz Riddle ProviderActiveStart: July 04, 2025 Visit Care Team Team Status: Inactive Member Role/Relationship Status Dates Romie Rdz DO Primary Care Provider Active S tart: August 20, 2025 End: August 20, 2025DaRaz Cain ProviderActiveStart: August 20, 2025 End: August 20, 2025 Visit Care Team Team Status: Inactive Member Role/Relationship Status Dates Romie Rdz DO Primary Care Provider Active S tart: September 24, 2025 End: September 24, 2025DaRaz Cain ProviderActiveStart: September 24, 2025 End: September 24, 2025 Visit Care Team Team Status: Inactive Member Role/Relationship Status Dates Romie Rdz DO Primary Care Provider Active S tart: September 29, 2025 End: September 29, 2025Florence Queen ProviderActiveStart: September 29, 2025 End: September 29, 2025 Chief Complaint and Reason for Visit Chief Complaint Admit Date Z12.31 August 20, 2025 3 :22pm med refill September 24, 2025 3:26pm Dysuria September 29, 2025 9:35am Reason for Visit Admit Date Chronic kidney disease, stage 3 unspecif ied September 24, 2025 3:26pm Degenerative disc disease, cervical Nove mber 2024 3:26pm Migraine September 24, 2025 3:26pm Acute UTI September 29, 2025 9:35am Allergies, Adverse Reactions, Alerts Allergen Type Severity Reaction Last Updated Verified Status NSAIDS (Non-Steroidal Anti-Inflamma Adverse Reaction Unknown kidney Dz September 29, 2025 9:44am Yes Active sulfamethoxazole Adverse Reaction Unknown kidney Dz September 29, 2025 9:44am Yes Active trimethoprim Adverse Reaction Unknown kidney Dz September 29, 2025 9:44am Yes Active Social History Smoking Status Status Start Date End Date Date of Observa tion Never smoked tobacco (finding) September 29, 2025 9:45am Observation Status Observation Response Date of Response Legal Sex Female (finding) Sex Assigned At BirthFemaleJuly 1964 Family History Relationship Condition Age at Onset Recorded Date/T hubert brother Diabetes mellitus Unknown fatherDeceasedUnknownHypertensionUnknownRenal failureUnknownmotherDiabetes mellitusUnknownDeceasedUnknownHypertensionUnknownMalignant neoplasm of breast UnknownmotherDiabetes mellitusUnknownMalignant neoplasmUnknown Problems Active Problems Problem Diagnosis/Recorded Date Onset Date Stat us Intentional weight loss March 22, 2024 2:01pm Unknown Active UTI (urinary tract infection) June 22, 2025 11:11a m Unknown Active Status post arthroscopy of l eft shoulder January 09, 2025 6:09am Unknown Active Biceps tendinitis of left shoulder December 18, 2024 3:30pm Unknown Active Trigger finger, right middle finger April 23, 2025 10 :31am Unknown Active Tendonitis of left rotator cuff October 19, 2024 8: 51am Unknown Active Encounter for screening mamm ogram for breast cancer July 20, 2024 10:17am Unknown Active Double vision December 20, 2023 3:08pm Unknown Active Secondary hyperparathyroidism December 16, 2023 1:07 pm Unknown Active Speech abnormality December 20, 2023 3:08pm Unknown Active Left rotator cuff tear October 19, 2024 8:51am Unkn own Active Atrophic kidney December 16, 2023 1:07pm Unknown Active Chronic kidney disease, stag e 3 unspecified December 16, 2023 1:07pm Unknown Active Hypertriglyceridemia December 16, 2023 3:34pm Unknow n Active Occipital neuralgia December 16, 2023 3:34pm Unknown Active Elevated liver function tests December 20, 2023 3:03 pm Unknown Active Migraine December 16, 2023 3:34pm Unknown A ctive Hyperglycemia June 21, 2024 2:13pm Unknown Ac tive Leukocytosis December 19, 2024 2:48pm Unknown A ctive Encounter for removal of sutures January 22, 2025 10:1 9am Unknown Active Leoncio hy kid w cr kid I-IV December 16, 2023 1:07pm Un known Active Degenerative disc disease, cervical December 16 3:34pm Unknown Active Viral syndrome December 19, 2024 2:44pm Unknown Active Weight gain June 21, 2024 2:08pm Unknown Act jakub Shoulder pain, left June 21, 2024 2:19pm Unknown Active Acute UTI September 29, 2025 10:23am Unknown Active Hypomagnesemia December 16, 2023 1:07pm Unknown Active Medications Medication Status Dose Units Route Directions Qty Days Refills S tart Date Stop Date End Date Reason(s) Instructions Adherence Rosuvastatin 5 mg tablet Discontinued 0 .ROUTE.YPJMWIG958Gvaoxcuu 2023 1:05pmMay 2023 1:49pmTAKE 1 TABLET BY MOUTH EVERY DAYOndansetron Hcl 4 mg digjuuChywjzyxujav5NBAL.COMPLEX as needed for nausea and vomitingJuly 2023 9:52amJuly 2023 9:53am4 mg orally q8-12 hrs PRNOndansetron Hcl 4 mg ebrqizUiwzijdxqwau1GYHM.COMPLEX as needed for nausea and fkkaloez534Usol 2023 9:52amSeptember 2024 7:23am4 mg orally q8-12 hrs PRNHydrocodone-Acetaminophen 5-325 mg rdliixZtvixdphgfts8BWWHQ .q6-8 hrs oiv2620Ubih 2023September 2023 10:18amDegeneration of intervertebral disc of cervical region Other cervical disc degeneration, unspecified cervical regionRosuvastatin 5 mg tabletDiscontinued0.ROUTE.BMESXOG797Xezsjz 2023 7:07amFebruary 2024 2:21pmTAKE 1 TABLET BY MOUTH EVERY DAYHydrocodone-Acetaminophen 5-325 mg tablet Cfgkumwuwthc7ASMJG.q6-8 hrs snj9341Oejsjqqdw 2023November 2023 2:52pm Degeneration of intervertebral disc of cervical region Other cervical disc degeneration, unspecified cervical regionHydrocodone- Acetaminophen 5-325 mg hebxjdYllcdgltvuaf4AIQUN.q6-8 hrs bfy8042Dtbvvbbq ecember 2023 11:49amDegeneration of intervertebral disc of cervical region Other cervical disc degeneration, unspecified cervical regionHydrocodone- Acetaminophen 5-325 mg bewvkvKorwcebrakve5EVPQU.q6-8 hrs evn4309Lluyayga 2023February 2024 9:31amDegeneration of intervertebral disc of cervical region Other cervical disc degeneration, unspecified cervical regionHydrocodone- Acetaminophen 5-325 mg gpejutKftpecgzgtuu3FLVTL.q6-8 hrs sim8594Rhuxifjt 2024February 2024 2:22pmDegeneration of intervertebral disc of cervical region Other cervical disc degeneration, unspecified cervical regionOxycodone 5 mg hfjwanVqjepxurpuzh4MBWIQ2G as needed for Gldx0133Aflzl ugust 2024 1:38pmStatus post arthroscopy of left shoulder Other specified postprocedural statesDO NOT RECONCILE UNTIL DOS 01/10/25 TO BE USED POST OPDocusate Sodium (Colace) 100 mg wygcbbgOpzzfz918NMTEVntgy daily as needed for Ozowustpynxt66474Szlin 2024 11:00pmDO NOT RECONCILE UNTIL DOS 01/10/25 TO BE USED POST OPComplies with 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Acetaminophen 500 mg tablet Flwdfcisgbvs980QZCJZ1J as needed for Oebh105Gcqhq 2024 11:00pmAugust 2024 1:37pmDO NOT RECONCILE UNTIL DOS 01/10/25 TO BE USED POST OPHydrocodone-Acetaminophen 5-325 mg cdyddlBydjwzhpmwaq8HVKPO .COMPLEXApril 2024 11:55amApril 2024 11:57am1 tab orally q6-8 hours prn;Hydrocodone-Acetaminophen 5-325 mg amywqmCmtdjauhpqbp1ADDNP.TVALSVX9824Dzhno 2024May 2024 1:53pmDegeneration of intervertebral disc of cervical region Other cervical disc degeneration, unspecified cervical region1 tab orally q6-8 hours prn;Hydrocodone-Acetaminophen 5-325 mg esckrrGjzlnmmswjnj7CICEX.UXZPORW236 0September 2024October 2024 9:21amDegeneration of intervertebral disc of cervical region Other cervical disc degeneration, unspecified cervical region1 tab orally q6-8 hours prn;Ondansetron Hcl 4 mg tabletActive0.ROUTE.SUUIOLS369Vbwmgytoz 2024 7:23amTAKE ONE TABLET BY MOUTH EVERY 8 TO 12 HOURS NEEDED FOR NAUSEA AND VOMITINGComplies with 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Hydrocodone-Acetaminophen 5-325 mg tablet Gvaeufkihgnm2NWONZ.XLSBRYV6505Tcsnyij 2024November 2024 3:51pm Degeneration of intervertebral disc of cervical region Other cervical disc degeneration, unspecified cervical region1 tab orally q6-8 hours prn;Hydrocodone-Acetaminophen 5-325 mg tabletDiscontinued0.5TABPOEvery morningFebruary 2024 12:00amApril 2024 11:55amRosuvastatin 5 mg mkgjqpMwqtjbbkbsgc6FUAMJuomsEiejgdai 2023 12:00amFebruary 2023 1:07pmFreeTextSig: TAKE 1 TABLET BY MOUTH EVERY DAY; Note: Source Status: Taking; Refills: 0; Qty: 90 Tablet; Provider: Kendell Grubbs ( ) Hydrocodone-Acetaminophen 5-325 mg uwyvxrVhvjpurbdbcbZPZXN9Cclxwspu 2023 12:00amFebruary 2023 3:15pmFreeTextSi tablet Orally q6-8 hrs prn Dx: M50.30; Note: Source Status: Refill; Refills: 0; Provider: Kendell Grubbs C Propranolol 80 mg gxupxiJwrduoabnrnq05TYHNHqfkhHyfdlnll 2023 12:00am Omaira 2024 3:43pmFreeTextSi Tablet Orally Once a day; Note: Source Status: Taking; Provider: Kendell Grubbs ( )Ascorbic Acid (Vitamin C) 1,000 mg rqdbelKiiapfqxvuvw9CVPHLoedrJlrmupyz 2023 12:00amMay 2023 1:49pmFreeTextSig: as directed Once a day; Note: Source Status: Taking; Provider: Kendell Grubbs ( )Multivitamin evdgexUlrahzoehvfm6VVJIE DailyFebruary 2023 12:00amFebruary 2023 2:47pmMagnesium Oxide 500 mg magnesium cwfyefXgeevn871ZAWAUossx morningFebruary 2023 12:00amComplies with 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Ondansetron Hcl 4 mg vnnykeRfvjktjxiwcy7AOWMag neededFebruary 2023 12:00amJuly 2023 9:52amFreeTextSi tablet Orally q8-12 hrs prn; Note: Source Status: Takingprn; Provider: Kendell Grubbs CAtogepant (Qulipta) 60 mg rgvzitBquzfrrfreba82YJZWVlgbsKmhhvdfh 2023 12:00amJanuary 2024 3:36pmUbrogepant (Ubrelvy) 100 mg ydbupbQrvcqityvlsa751UQMFpb neededFebruary 2023 12:00amFebruary 2024 2:31pmVitamin E Mixed 400 unit capsule Jxhpyb192HMHOULQjtjd morningFebruary 2023 12:00amComplies with 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Ascorbic Acid (Vitamin C) 1,000 mg kvfpqdNrwexu0923IAVOGwclu morningMay 2023 1:48pmComplies with 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Hydrocodone-Acetaminophen 5-325 mg kzttsdFjtlygzwadno9KTSYZ.q6-8 hrs brj5527Vjvqxbcz 2023May 2023 2:05pmDegeneration of intervertebral disc of cervical region Other cervical disc degeneration, unspecified cervical regionFreeTextSi tablet Orally q6-8 hrs prn Dx: M50.30; Note: Source Status: Refill; Refills: 0; Provider: Kendell Grubbs CRosuvastatin 5 mg hpddcvWrurgesqayjv9TCTHJhedpYpi 2023 1:49pmAugust 2023 7:07amHydrocodone-Acetaminophen 5-325 mg tablet Jreizobudkgq8TTAKF.q6-8 hrs kqe7126Niw 2023July 2023 9:53am Degeneration of intervertebral disc of cervical region Other cervical disc degeneration, unspecified cervical regionCephalexin 500 mg eaayrnsZoyqolgbfdya444TFYBLhnmm nbyjb7722Mpzbtc 2024 11:00pmNovember 2024 3:34pmCephalexin 500 mg wiioivlUqtmjw210SEIYAlpgu 12 mmfsk8532Zsuzpmaq 2024 12:00amComplies with 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Rimegepant (Nurtec Odt) 75 mg tablet,pgbgnjmcxlvdbeRmxrvd82ZWCJLwzpc as needed for migraine headacheJanuary 2024 12:00amComplies with 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Propranolol 80 mg capsule,extended release 24 rvFvpkar29FVYVSbncf morningJanuary 2024 12:00amComplies with 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Atogepant (Qulipta) 60 mg rrsxxpWdafvu30LRVXGutul at bedtimeFebruary 2024 12:00amComplies with 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Ciclopirox 1 % phaekuhEilwaq1NJ TOPICALDaily as needed for itchingFebruary 2024 12:00amComplies with 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Fluocinonide 0.05 % hgghqxvuOeoxyw5ZPTXWBZUHLFYDCiqwv as needed for itchingFebruary 2024 12:00amComplies with 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Hydrocodone- Acetaminophen 5-325 mg vksfwlBwhwdbbxghti6KULOC.BHLHDLG2101Wrb ugust 2024 1:54pmDegeneration of intervertebral disc of cervical region Other cervical disc degeneration, unspecified cervical region1 tab orally q6-8 hours prn;Hydrocodone-Acetaminophen 5-325 mg rgaioeMeyyxpojjsdd9ZPBAC.GTZHHGI612 0August 2024September 2024 3:22pmDegeneration of intervertebral disc of cervical region Other cervical disc degeneration, unspecified cervical region1 tab orally q6-8 hours prn;Hydrocodone-Acetaminophen 5-325 mg bbtiikAzkuov7IUJRB.EJKJIPT7859 September 24, 2025Degeneration of intervertebral disc of cervical region Other cervical disc degeneration, unspecified cervical region1 tab orally q6-8 hours prn;Complies with 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 Medical Equipment Device Date Implanted Device Details Tendon/ligament bone anchor, bioabsorbable January 10, 2025 KISHAN: [id number] Issuing Agency: [facility] Device Id: [id number] Expiration Date: 2028-10-31 Lot Number: [id number] Procedures Procedure Date Performed Status MM screening mammo BI w/CAD August 20, 2025 2 :23pm completed Relevant Diagnostic Tests and/or Laboratory Data Laboratory Results Test Collection Date/Time Result Date/Time Result Interpretation Reference Range Result Comment Performing Site Urine Bilirubin July 04, 2025 2:32pm July 04, 2025 2:32pm NEGATIVE NEGATIVEUrine ColorNov2024 9:54amNovemb2024 9:59am darkyellowUrine Occult BloodSept2024 2:32pmSept2024 2:32pm NEGATIVENEGATIVEUrine AppearanceNov2024 9:54amNovember 2024 9:59amcloudyUrine AppearanceSept2024 2:32pmSept2024 2:32pm CLEARCLEARUrine Glucose (UA)September 29, 2025 9:54amNovember 2024 9:59am NegativeUrine ColorSept2024 2:32pmSept2024 2:32pmLT. YELLOWYELLOWUrine BilirubinNov2024 9:54amNovember 2024 9:59am NegativeUrine Glucose (UA)July 04, 2025 2:32pmSeptember 2024 2:32pm NEGATIVE mg/dLNEGATIVEUrine KetonesNovember 2024 9:54amNovember 2024 9:59amTraceUrine KetonesSeptember 2024 2:32pmSeptember 2024 2:32pm NEGATIVE mg/dLNEGATIVEUrine Specific GravityNovember 2024 9:54amNovember 2024 9:59am1.025Urine Leukocyte EsteraseSeptember 2024 2:32pm July 04, 2025 2:32pmTRACEAbnormal (applies to non-numeric results)NEGATIVE Urine Occult BloodNovember 2024 9:54amNovember 2024 9:59amLargeUrine NitriteSeptember 2024 2:32pmSeptember 2024 2:32pmNEGATIVENEGATIVEUrine pHNovember 2024 9:54amNovember 2024 9:59am6.0Urine pHSeptember 2024 2:32pmSeptember 2024 2:32pm7.05.0-9.0Urine ProteinNovember 2024 9:54amNovember 2024 9:59am>=300Urine ProteinSeptember 2024 2:32pm July 04, 2025 2:32pmNEGATIVE mg/dLNEG/TRACEUrine UrobilinogenNovember 2024 9:54amNovember 2024 9:59am0.2Urine Specific GravitySeptember 2024 2:32pmSeptember 2024 2:32pm1.0101.005-1.025Urine NitriteNovember 2024 9:54amNovember 2024 9:59amPositiveUrine UrobilinogenSeptember 2024 2:32pmSept2024 2:32pm0.2 EU/dL0.2-1.0Urine Leukocyte EsteraseNovember 2024 9:54amNovember 2024 9:59amModerate Diagnostic Imaging Reports Author Benji Do [facility] CenterAuthoredOctmiddlesboro [facility] hospital 2024 3:59pmReportDictated Date/TimeDictated ByStatusRadiology ReportOctober 2024 3:59pmBenji Do II [facility] [address] [place], [place] [id number] Mammography Report Signed Patient: Myrtle Jones MR#: [id number] 6 : 1965 Acct:[id number] Age/Sex: 60 / F Adm Date: 5 Loc: [place] Room: Type: [facility] Attending Dr: Romie Rdz DO Ordering Provider: Romie Rdz DO Date of Service: 08/20/25 Procedure(s): MM screening mammo BI w/CAD Accession Number(s): ([id number]) MM/MM screening mammo BI w/CAD: Z12.31 - Encounter for screening mammogram for malignant ... Copies to: Romie Rdz DO~ CLINICAL DATA: Screening for malignancy. BILATERAL SCREENING MAMMOGRAMS - FULL FIELD DIGITAL WITH TOMOSYNTHESIS AND CAD Tomosynthesis craniocaudal and mediolateral oblique views of both breasts were obtained using low-dose digital technique. Comparison is made to prior studies from 08/18/2024, 07/29/2023, 06/02/2022, and 06/06/2021. This examination was reviewed with the aid of CAD. There are scattered fibroglandular densities. Benign-appearing calcifications are present. There are no dominant masses, typically malignant calcifications or architectural distortion. There has been no significant interval change. MM/MM screening mammo BI w/CAD IMPRESSION: NO MAMMOGRAPHIC EVIDENCE OF MALIGNANCY. ROUTINE FOLLOW-UP IS RECOMMENDED IN ONE YEAR. RESULT CODE: 2 Benign Findings(s) DENSITY CODE: 2 (approximately 25-50% glandular) There are scattered areas of fibroglandular density. FOLLOW UP: 1YR The false-negative rate of mammography is approximately 10-percent. Management of a palpable abnormality must be based on clinical grounds. Patient was entered into a reminder system with a target due date for the next mammogram. Impression dictated by: Benji Do M.D. 08/20/2025 4:00 PM Dictation Location: S01 Dictated By: Benji Do II, MD 08/20/25 1559 Signed By: <Electronically signed by Benji Do II, MD in [place]> 08/20/25 1600 Vital Signs Vital Reading Result Reference Range Collection Date/Time Height 67 [in_i] September 24, 2025 3:14blQbcvyy25.12 kgNov2024 3:30pmBody Gufcdouetlk61.1 [degF]97.6-99.0September 24, 2025 3:30pmHeart Rate71 /uad75-069 September 24, 2025 3:30pmOxygen saturation by Pulse %95-100September 24, 2025 3:30pmBP Fvkhhuxj614 mm[Hg]100-140September 24, 2025 3:30pmBP Ikrqawukv08 mm[Hg]60-100September 24, 2025 3:30pmBMI (Body Mass Index)24.9 kg/q1MnvbxtgnSeptember 24, 2025 3:60ixTvpamr19 [in_i]September 29, 2025 9:40amWeight 70.93 kgNov2024 9:40amBody Mnipfhsihji93.1 [degF]97.6-99.0September 29, 2025 9:40amHeart Rate80 /lwc88-659MlqafrvqSeptember 29, 2025 9:40amRespiratory rate18 /khz71-64VremfldoSeptember 29, 2025 9:40amOxygen saturation by Pulse yjvbhqwq28 %95-100September 29, 2025 9:40amBP Wmtuzmlf971 mm[Hg]100-140September 29, 2025 9:40amBP Gjrsvwbdj60 mm[Hg]60-100September 29, 2025 9:40amBMI (Body Mass Index)24.5 kg/z6YirpzpvvSeptember 29, 2025 9:40am Advance Directives Advance Directive Response Recorded Date/ Time Advance Directives No August 03, 2017 3:04pm Insurance Providers Guarantor Myrtle Jones Address [address] [place] [phone] Info.Home Phone: Coverage Status Update:2024 Payer Group Member ID Coverage Type Subscriber Relationship to Subscriber Effective Date Expiration Date O Id: [id number] Smith , M Id: [id number] [address] [place] [phone] Home Phone: Email: DECLINED 16 Encounters Encounter Location(s) Arrival/Admit Date Discharge/Departure Date Discharge/Departure Disposition Provider(s) Non-patient / Non-visit -[facility] 2024 3:32pm [facility]uaformerly [facility] CareAugmiddles[facility] 2024 3:22pmHelen [facility]os [facility] 2024 3:23pmDischarged to home care or self care (routine discharge)Gil Lantiguaformerly [facility] Physician/Provider Office Visit-[facility]pm[facility] 20[facility] 4:03pmDischarged to home care or self care (routine discharge)Gil Lantiguaformerly [facility] Physician/Provider Office Visit-[facility] Urgent Care [facility] 2024 9:35am September 29, 2025 10:18amDischarged to home care or self care (routine discharge)Carrington Bajwa SENIOR WEALTH ADVISOR Recent Diagnosis Onset Date Admit Date Chronic kidney disease, stage 3 unspecified Unkn own September 24, 2025 3:26pm Degenerative disc disease, cervical Unknown September 24, 2025 3:26pm Migraine Unknown September 24, 025 3:26pm Acute UTI Unknown September 29 025 9:35am Assessments Author Romie Rdz [facility] 2024 4:08pmThe above note written by ___Gilbert Bill____ acting as human recorder, note dictated by Dr. Stiles .I performed the above HPI, ROS, and Examination. I formulated and dictated the treatment plan and was present for entire encounter. Romie Rdz D.O. Plan of Treatment Author Evelyne Hoff [facility] 2024 10:24am UA with moderate leukocytes, blood, nitrite. Will treat with keflex. Push fluids. We will culture urine and notify of results in 2 to 4 days. Advised to follow-up with PCP if symptoms or not gradually improving over the next 3 to 4 days. Patient verbalized understanding of treatment plan. Author Gilbert Bill [facility] HospitalhoredNovcopper [facility] 2024 4:02pmHeathersania is going to see Dr. Chatterjee (his associate) in early October (2024). She voices that her migraines have increased significantly. 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 She has had Botox injections and her medication is not working. She will discuss with that office. She does continue to use and benefit from the pain medication. I did provide her with a refill today. She has had two fusions done on her neck by Dr. Pires. She is having an increase in migraines and wonders if this is being caused by her neck pain. She voices that Dr. Pires told her in the past the upper fusion should not be redone because it was tricky . I did recommend she speak with Dr. Chatterjee about this and if they do not want to order any imaging then she can let me know and I can order imaging and/or refer her to Dr. Leonard. Frequent appointments needed due to addiction potential of medication. Pain inventory sheet completed and reviewed if opioid medication given. Pain contract is on file if pertinent. Patient will have office visits every three months for evaluation or sooner if needed. I discussed addiction potential of medication with the patient. Discussed with the patient and provided a treatment plan including the use of non-opioid analgesics and non-pharmacological intervention with patient if treated for pain. We have discussed realistic benefits and known risks of opioid/controlled therapy and the expected benefits for both pain and function. These benefits outweigh the risks. Patient has been counselled on the dangers of combining opioids/controlled prescriptions with alcohol or other sedatives and counseled on the safe storage and disposal of opioids/controlled prescriptions. Do not drive or operate heavy machinery after taking opioid/controlled medication. I have verified that no current substance abuse treatments are being prescribed.? She has an appointment to see Dr. Plummer on 10/18/25. Future Tests Future scheduled test information is unavailable Pending Tests Test Name Ordered Date Scheduled Date Urine Culture September 29, 2025 9:35am Future Visits Future appointment information is unavailable Future Procedures Procedure Name Ordered Date Scheduled Date Urine Culture September 29, 2025 4:27pm Novem susy 2024 9:35am Urine Culture September 29, 2025 9:54am Future Medications Future medication information is unavailable Patient Instructions Patient instructions are unavailable
--- OUTSIDE RECORDS SUMMARY | 2025-10-06 08:39 | XMS_ITS | Clinical Summary ---
Author Organization Abiel Valencia [facility] Address [address], [address] [place] [address] Care Team Providers Care Industrial Maintenance Instructor Name Role Phone Romie Rdz DO Primary Care Provider Unavail able Allergies Active AllergyReactionsCriticalityNoted DateComments Sulfamethoxazole-Fpzklgxxdhof34/28/2020 Medications MedicationSigDispense QuantityRefillsLast FilledStart DateEnd DateStatus diclofenac (VOLTAREN) 50 MG EC tablet Take 1 tablet by mouth 3 times daily (with meals) 90 tablet 06/28/2020Active Family History Medical HistoryRelationNameCommentsCancerMotherDiabetesMotherHigh Blood Pressure MotherRelationNameStatusCommentsMother Social History Tobacco UseTypesPacks/DayYears UsedDateSmoking Tobacco: Never AssessedSmokeless Tobacco: NeverCommentsUnknownSex and Gender InformationValueDate RecordedSex Assigned at BirthNot on fileLegal UmhPuzuwe64/10/2013 2:42 PM EST Gender IdentityNot on fileSexual OrientationNot on file Last Filed Vital Signs Vital SignReadingTime TakenCommentsBlood Pressure--Pulse--Dwwvpmgmqrs11.1 ??C (96.9 ??F)06/28/2020 9:29 AM EDTRespiratory Rate--Oxygen Saturation--Inhaled Oxygen Concentration--Dystgy38 kg (172 lb)06/28/2020 9:29 AM ETGPgsgrv882.2 cm (5' 7 )06/28/2020 9:29 AM EDTBody Mass Index26.9406/28/2020 9:29 AM EDT Plan of Treatment Not on file Insurance [address] [place] [address] Care Teams Team MemberRelationshipSpecialtyStart DateEnd Date Romie Rdz DO PCP - GeneralFamily Medicine06/28/20
--- OUTSIDE RECORDS SUMMARY | 2025-10-06 08:39 | XMS_ITS | Encounter Summary ---
Author Organization [facility] Address [address] [place] [id number] Care Team Providers Care Medical Practitioners Name Role Phone Romie Rdz DO Primary Care Provider Source Comments In the event this information is protected by the Federal Confidentiality of Alcohol and Drug AbusePatient Records regulations: The Federal rules restrict any use of the information to criminally investigate or prosecute any alcohol or drug abuse patient.[facility] Encounter Details DateTypeDepartmentCare Team (Latest Contact Info)Catnkumvltg51/03/2025Travel Social History Tobacco UseTypesPacks/DayYears UsedDateSmoking Tobacco: NeverSmokeless Tobacco: NeverAlcohol UseStandard Drinks/WeekCommentsYes0 (1 standard drink = 0.6 oz pure alcohol)InfrequentPHQ-2AnswerDate RecordedPHQ-2 aezdn337/03/2025Area Deprivation IndexAnswerDate RecordedNational Score (1-100), lower number is lower risk63 03/29/2024State Score (1-10), lower number is lower jogz1934Data from: https://www.neighborhoodatlas.medicine.[facility].edu/. Last address used for [id number] [facility] [id number] and Gender InformationValueDate RecordedSex Assigned at BirthNot on fileLegal SexFemale 07/02/2015 9:34 AM EDTGender IdentityNot on fileSexual OrientationNot on file documented as of this encounter Plan of Treatment DateTypeDepartmentCare Team (Latest Contact Info)Xpbzitkgolo12/10/2025 1:00 PM ESTOffice Visit [facility]rology [facility] [address] Simona Martinez, GHISLAINE.[employer] [address] [place] [address] FOLLOW UP 6 MONTHSdocumented as of this encounter Visit Diagnoses Not on filedocumented in this encounter Care Teams Team MemberRelationshipSpecialtyStart DateEnd Date Romie Rdz DO [address] [place] [id number] PCP - GeneralFamily Medicine07/02/15documented as of this encounter
--- OUTSIDE RECORDS SUMMARY | 2025-10-06 08:39 | XMS_ITS | CCD ---
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 Name Role Phone Anand Garcia Unavailable Dario [...] Unavailable Girromelia DO Anand Primary Care Provider [phone] DO Anand Garcia Attending Provider Anand Garcia DO Primary Care Provider Anand Garcia DO Primary Care Provider CRESENCIO ROBLES Referring Unavailable ANAND GARCIA Primary Care Unavailable DO Anand Garcia Primary Care Provider DO Anand Garcia Attending Provider [phone] Unavailable Primary Care Provider Unavailabl e Anand Garcia DO Primary Care Provider Anand Garcia DO Attending Provider Ralph Hoff DO Attending Provider Anand Garcia DO Primary Care Provider Anand Garcia DO Primary Care Provider [phone] Ralph Hoff DO Attending Provider Anand Garcia [...] DICKSON Attending Unavailable PENNY, RALPH Referring Unavailable BRINK, [...] HAWKINS Attending Unavailable ANAND GARCIA Referring Unavailable FLYNN, KATHRYN Attending Unavailable PENNY, RALPH Referring Unavailable BRINK, XAVIER Attending Unavailable PENNY, RALPH Referring Unavailable SANJAY HAWKINS Attending Unavailable BRSTEPHANIE, XAVIER Attending Unavailable PENNY, RALPH Referring Unavailable BRINK, XAVIER Attending Unavailable PENNY, RALPH Referring Unavailable Anand Garcia DO Primary Care Provider Ralph Hoff DO Attending Provider Anand Garcia DO Attending Provider Anand Garcia DO Primary Care Provider Ralph Hoff DO Attending Provider Anand Garcia DO Attending Provider Marybel SENIOR ENVIRONMENTAL CONSULTANT, Ely Shultz Attending Provider Anand Garcia DO Primary Care Provider [phone] Ralph Hoff Admitting Unavailable Ralph Hoff Attending Unavailable Anand Garcia Primary Care Unavailable Radha, Anand Attending Unavailable Anand Garcia Admitting Unavailable Anand Garcia Primary Care Unavailable Radha, Anand Primary Care Unavailable Ralph Hoff Admitting Unavailable Ralph Hoff Attending Unavailable Ralph Hoff Admitting Unavailable Ralph Hoff Attending Unavailable Anand Garcia Primary Care Unavailable Ralph Hoff Attending Unavailable Ralph Hoff Admitting Unavailable Radha, Anand Primary Care Unavailable Ely No Admitting Unavailable Ely No Attending Unavailable Radha, Anand Attending Unavailable Radha, Anand Admitting Unavailable Radha, Anand Primary Care Unavailable Allergies Allergy ClassificationReported Allergen(s)Allergy TypeDate of OnsetReaction(s) Facility (20 sources)NSAIDsPropensity to adverse yomwljakp18-09-8864HutejbqIEHR Healthcare (16 sources)Sulfamethoxazole / Trimethoprim; Translations: [Bactrim]Drug Allergy 11-74-0302givgdrB[facility] (20 sources)topiramate; Translations: [TOPIRAMATE]Drug Bmfoayl47-15-4023Tcphvb Status ChangeUniversity [facility] (1 source)NSAIDsDrug allergy (disorder)19-40-8368XbbSt. [facility] (20 sources)Sulfamethoxazole; Translations: [sulfamethoxazole]Drug Allergy 22-92-2462hzzkmhNationwide [facility] (20 sources)Trimethoprim; Translations: [trimethoprim]Drug Oxtipyh23-00-1892 kidney [facility] (16 sources)NSAIDS (Non-Steroidal Anti-Inflamma; Translations: [NSAIDS (Non- Steroidal Anti-Inflamma]Allergy to tqeimwzsg01-93-8689eylvzzNationwide Children's Hospital (20 sources)Sulfamethoxazole / TrimethoprimDrug Ojcpgjp13-17-6187ZmkisckJNLR Healthcare (20 sources)TopiramateAllergy to -62-1163ArnxrccOWBH Healthcare Medications Current Medications MedicationDrug Class(es)DatesSig (Normalized)Sig (Original)acetaminophen 325 mg / HYDROcodone bitartrate 5 mg oral tablet (20 sources)Opioid AgonistStart: 02-09-2025 End: 97-19-2575Lftev: 12-26-2024 End: 57-68-0860pbqb 0.5 tablet by mouth once daily in the morningHydrocodone- Acetaminophen 5-325 mg tablet Discontinued 0.5 TAB PO Every morning December 2651:00am February 09, 2025 12:55pmStart: 12-16-2023 End: 55-33-2437Goercyxrywe-Acetaminophen 5-325 mg tablet Discontinued 1 TAB PO .q6-8 hrs prn 21 7 0 March 22, 2024July 2023 10:53am Degeneration of intervertebral disc of cervical region Other cervical disc degeneration, unspecified cervical regionStart: 51-86-4178SGQKCbdffbo-Acetaminophen 5-325 MG 1 tablet Orally q6-8 hrs prn Dx: M50.30 for 7 days Sep, ActiveStart: 13-49-9823ZQHXKkidmdi-Acetaminophen 5-325 MG 1 tablet Orally q6-8 hrs prn Dx: M50.30 Dec, ActiveStart: 43-22-3836BOEQUpalolg-Acetaminophen 5-325 MG 1 tablet Orally q6-8 hrs prn Dx: M50.30 for 7 days Aug, ActiveStart: 15-64-3573JBNRYpeeomp-Acetaminophen 5-325 MG 1 tablet Orally q6-8 hrs prn Dx: M50.30 for 7 days Jul, ActiveStart: 62-18-6338Cmvam 5-325 MG 1 tablet Orally q6-8 hrs as needed DX: M50.30 for 7 days May, Activeascorbic acid 1000 mg oral tablet (20 sources)Vitamin CStart: 70-37-7350kdvx 1 g by mouth once dailyAscorbic Acid (Vitamin C) Active 1 GM PO Daily March 22, 2024 2:48pmStart: 12-16-2023 End: 05-36-9046adac 1 tablet by mouth once daily in the morningStart: 12-16-2023 End: 86-53-4478ywpx 1 g by mouth once dailyAscorbic Acid (Vitamin C) Discontinued 1 GM PO Daily December 16, 2023 1:00am March 22, 2024 2:49pm FreeTextSig: as directed Once a day; Note: Source Status: Taking; Provider: Radha Michel ( )Vitamin C ActiveComment on above:Take 1,000 mg by mouth once daily.ascorbic acid (Vitamin C) 500 mg/mL oral liquid (20 sources)Start: 34-50-6154tugymxzz acid (Vitamin C) 500 mg/mL oral liquid Daily 03/22/2024 ActiveAtogepant (20 sources)Start: 92-04-4450gizm 1 tablet by mouth once daily at bedtimeStart: 22-25-9782elso 1 tablet by mouth once daily at bedtimeAtogepant (Qulipta) 60 mg tablet Active 60 MG PO Daily at bedtime December 19, 2024 1:00am Complies with 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Start: 97-09-8109nvex 1 tablet by mouth once daily at bedtime Atogepant (Qulipta) 60 mg tablet Active 60 MG PO Daily at bedtime December 19, 2024 1:00amStart: 38-78-4659koas 1 tablet by mouth once daily at bedtime Atogepant (Qulipta) 60 mg tablet Active 60 MG PO Daily at bedtime December 19, 2024 12:00amStart: 45-36-3843fqrm 1 tablet by mouth once dailyAtogepant (Qulipta) 60 mg tablet Active 60 MG PO Daily December 19, 2024 12:00amStart: 12-16-2023 End: 20-43-3796efiq 1 tablet by mouth once dailyAtogepant (Qulipta) 60 mg tablet Discontinued 60 MG PO Daily December 16, 2023 1:00am November 16, 2024 4:36pm Start: 12-16-2023 End: 60-82-2893zgau 1 tablet by mouth once dailyAtogepant (Qulipta) 60 mg tablet Discontinued 60 MG PO Daily December 16, 2023 12:00am November 16, 2024 3:36pmStart: 01-35-0935auif 1 tablet by mouth once dailyAtogepant (Qulipta) 60 mg tablet Active 60 MG PO Daily December 16, 2023 1:00amAtogepant (Qulipta) 10 MG tablet (20 sources)Atogepant (Qulipta) 10 MG tablet Take by mouth Activeatogepant (QULIPTA) 60 mg tablet (17 sources)Start: 06-21-2025 End: 16-03-9978cjxa 1 tablet by mouth once daily in the eveningatogepant (QULIPTA) 60 mg tablet Take 1 tablet by mouth once daily. 90 tablet 1 06/22/2025 4:58 PM EDT 06/21/2025 06/21/2026 ActiveStart: 06-21-2025 End: 27-66-2571evrr 1 tablet by mouth once dailyatogepant (QULIPTA) 60 mg tablet Take 1 tablet by mouth once daily. 90 tablet 1 06/21/2025 06/21/2026 Active Start: 06-09-2024 End: 70-26-9129moly 1 tablet by mouth once daily in the morningatogepant (QULIPTA) 60 mg tablet Take 1 tablet (60 mg) by mouth once daily. 30 tablet 11 :31 AM EDT 06/09/2024 06/20/2025 DiscontinuedStart: 06-09-2024 End: 57-18-0614offn 1 tablet by mouth once daily in the eveningatogepant (QULIPTA) 60 mg tablet Take 1 tablet (60 mg) by mouth once daily. 30 tablet 03/19/2025:22 PM EDT 06/09/2024 06/09/2025 ActiveStart: 06-09-2024 End: 03-40-0012esdn 1 tablet by mouth once dailyatogepant (QULIPTA) 60 mg tablet Take 1 tablet (60 mg) by mouth once daily. 30 tablet 06/09/2024 ActiveStart: 11-26-2023 End: 50-87-1925pkly 1 tablet by mouth once dailyatogepant (QULIPTA) 60 mg tablet Take 1 tablet (60 mg) by mouth once daily. 30 tablet 11/26/2023 DiscontinuedStart: 11-26-2023 End: 13-11-2483ongv 1 tablet by mouth once dailyatogepant (QULIPTA) 60 mg tablet Take 1 tablet (60 mg) by mouth once daily. 30 tablet 11/26/2023 ActiveComment on above:Take 1 tablet (60 mg) by mouth once daily.baclofen 10 mg oral tablet (2 sources)gamma-Aminobutyric Acid-ergic AgonistStart: 09-28-2022 End: 49-79-0032ucpc 1 tablet by mouth twice daily as neededbaclofen (LIORESAL) 10 mg tablet Indications: Cervicalgia , History of fusion of cervical spine , Ce rvical spondylosis Take 1 tablet by mouth twice daily as needed. 40 tablet 0 09/28/2022 10/28/2022 ActiveComment on above:Take 1 tablet by mouth twice daily as needed.cephalexin 500 mg oral capsule (5 sources)Cephalosporin AntibacterialStart: 31-08-6001dhdu 1 capsule by mouth twice dailyciclopirox 10 mg/ml medicated shampoo (20 sources)Start: 24-97-5245Sccnn: 65-66-1602Ylcxjxyyjt 1 % shampoo Indications: Other seborrheic dermatitis Lather on wet hair, leave on 5 min, rinse 2-3 x week, 30 day supply 120 mL 11 08/30/2024 ActiveStart: 08-30-2024 ciclopirox (Loprox) 0.77 % cream Indications: Other seborrheic dermatitis Apply thin layer to affected area once a day, 30 day supply 30 g 11 08/30/2024 Active CYANOCOBALAMIN, VITAMIN B-12, (VITAMIN B-12 ORAL) (20 sources)CYANOCOBALAMIN, VITAMIN B-12, (VITAMIN B-12 ORAL) Take by mouth. ActiveCYANOCOBALAMIN, VITAMIN B-12, (VITAMIN B-12 ORAL) Take by mouth. 0 Active Comment on above:Take by mouth.dihydroergotamine mesylate 0.725 MG/ACTUAT Metered Dose Nasal Warren [Trudhesa] (2 sources)Trudhesa 0.725 MG/ACT 1 spray in each nostril may repeat dose after 1 hour no more than 3 doses perweek as needed Nasally Once a day Activedocusate sodium 100 mg oral capsule (10 sources)Start: 55-79-7960nxjx 1 capsule by mouth twice daily as needed for constipationfluocinonide 0.5 mg/ml topical solution (20 sources)CorticosteroidStart: 78-99-9349Yejyc: 74-28-3453iqkuwtkycxqm (Lidex) 0.05 % external solution Indications: Other seborrheic dermatitis Apply to affe cted areas on the scalp, up to twice a day when flared, 30 day supply 60 mL 11 08/30/2024 ActiveMagnesium (4 sources)take 5 tablets by mouth once dailyMagnesium 100 MG 5 tablets (500 MG) Orally qd Activetake 1 tablet by mouth once dailyMagnesium 500 MG 1 tablet with a meal Orally Once a day ActiveMagnesium Hydroxide (18 sources)take 400 mg by mouth once dailymagnesium hydroxide (MAGNESIA ORAL) Take 400 mg by mouth once daily. Activetake 400 mg by mouth once dailymagnesium hydroxide (MAGNESIA ORAL) Take 400 mg by mouth once daily. 0 ActiveComment on above:Take 400 mg by mouth once daily.magnesium oxide 500 mg oral tablet (15 sources)Start: 07-15-0646Delkq: 57-50-3902cfeq 1 tablet by mouth once daily Magnesium Oxide 500 mg magnesium tablet Active 500 MG PO Daily December 16, 2023 12:00amondansetron 4 mg oral tablet (20 sources)Serotonin-3 Receptor AntagonistStart: 61-74-1341Dvjkb: 12-16-2023 End: 48-85-0420Rjzyvhmdbgm Hcl 4 mg tablet Discontinued 4 MG PO .COMPLEX as needed for nausea and vomiting 24 2 May 25, 2024 10:52am July 12, 2025 8:23am 4 mg orally q8-12 hrs PRNStart: 42-60-4705Bstypm 4 mg 1 tablet Orally q8-12 hrs prn prn Jun, ActiveStart: 95-83-4520Cjzqdy 4 mg 1 tablet Orally q8-12 hrs prn Jun, ActiveONDANSETRON HCL (ZOFRAN ORAL) Take 4 mg by mouth as needed. ActiveComment on above:Take 4 mg by mouth as needed. ondansetron (Zofran) 1 MG split tablet (20 sources)ondansetron (Zofran) 1 MG split tablet Take 4 mg by mouth Wiuged97 hr propranolol hydrochloride 80 mg extended release oral capsule (20 sources)beta-Adrenergic BlockerStart: 16-40-9222zqdv 1 capsule by mouth once daily in the morningStart: 12-16-2023 End: 68-59-2967wwpw 1 tablet by mouth once dailyPropranolol 80 mg tablet Discontinued 80 MG PO Daily December 16, 2023 1:00am November 16, 2024 4:43pm FreeTextSi Tablet Orally Once a day; Note: Source Status: Taking; Provider: Radha Michel( )Start: 11-26-2023 End: 28-67-9135rfhv 1 capsule by mouth once daily in the morningStart: 12-02-2021 End: 23-35-9465ywci 1 capsule by mouth once dailypropranolol ER (INDERAL LA) 80 mg 24 hr capsule Take 1 capsule by mouth once daily. 90 capsule 3 11/24/2022 Activetake 1 tablet by mouth every twenty-four hoursPropranolol HCl 80 MG 1 Tablet Orally Once a day ActiveComment on above:Take 1 capsule by mouth once daily.rimegepant 75 mg disintegrating oral tablet (20 sources)Start: 35-51-8995kbhj 1 tablet by mouth once daily as needed for headacheStart: 08-45-9856webl 1 tablet by mouth every twenty-four hours in the morningrimegepant (NURTEC ODT) 75 mg disintegrating tablet Take 1 dissolvable tablet by mouth at migraine onset. Take only 1 tablet per 24 hours. 8 tablet 11 05/25/2025 8:31 AM EDT 10/04/2024 Wcnhmv44 hr scopolamine 0.0139 mg/hr transdermal system (20 sources)AnticholinergicStart: 60-95-7983qashoscmgby (TRANSDERM-SCOP) 1.5 mg (1 mg over 3 days) Apply 1 Patch as directed every 72 hours. APPLY 1 DISC BEHIND THE EAR AT LEAST 4 HOURS PRIOR TO EXPOSURE AND EVERY 3 DAYS NEEDED. 12 Patch ActiveComment on above:Apply 1 Patch as directed every 72 hours. APPLY 1 DISC BEHIND THE EAR AT LEAST 4 HOURS PRIOR TO EXPOSURE AND EVERY 3 DAYS NEEDED.tiZANidine 4 mg oral capsule (2 sources)Central alpha-2 Adrenergic AgonistStart: 11-16-2022 End: 68-40-6656yiid 1 capsule by mouth every twelve hours as neededtiZANidine HCl (ZANAFLEX) 4 mg capsule Take 1 capsule by mouth twice daily as needed. 40 capsule 0 11/16/2022 12/16/2022 ActiveComment on above:Take 1 capsule by mouth twice daily as needed.Vitamin C 1000 MG (6 sources)Vitamin C 1000 MG as directed Once a day Not-TakingVitamin C 1000 MG as directed Once a day Activevitamin e 180 mg oral capsule (15 sources)Start: 96-16-2852fnse 1 capsule by mouth once daily in the morning Start: 51-54-9610Cozxagx E Mixed 400 unit capsule Active UNIT PO December 16, 2023 12:00amStart: 10-37-7198Hpsbcfb E Mixed Active UNIT PO December 16, 2023 1:00amVitamin E 400 UNIT (15 sources)take 1 capsule by mouth once dailyVitamin E 400 UNIT 1 capsule Orally Once a day Not-Takingtake 1 capsule by mouth once dailyVitamin E 400 UNIT 1 capsule Orally Once a day Active Completed/Discontinued Medications MedicationDrug Class(es)DatesSig (Normalized)Sig (Original)acetaminophen 500 mg oral tablet (10 sources)Start: 01-09-2025 End: 88-30-1043txjp 1 tablet by mouth every six hours as needed for pain Acetaminophen 500 mg tablet Discontinued 500 MG PO Q6H as needed for Pain 30 0 January 09, 2025 12:00am June 27, 2025 2:37pm DO NOT RECONCILE UNTIL DOS 01/10/25 TO BE USED POST OPdihydroergotamine mesylate 0.5 mg/actuat metered dose nasal spray (9 sources)Ergotamine DerivativeDihydroergotamine Mesylate 4 MG/ML as directed Nasally ONLY NEEDED PRN Not-Takingdihydroergotamine (TRUDHESA) 0.725 mg/pump act. (4 mg/mL) nasal spray (2 sources)Start: 75-57-3493xhqenmkjlmcsleava (TRUDHESA) 0.725 mg/pump act. (4 mg/mL) nasal spray Prime with 4 pumps before use. 1 spray in each nostril at migraine onset. May repeat once in 1 hour if needed. No more than 2 doses/24 hours and 3 doses/week. A complete dose is 2 sprays: 1 spray in each nostril. 8 mL 11 07/21/2023 ActiveComment on above:Prime with 4 pumps before use. 1 spray in each nostril at migraine onset. May repeat once in 1 hourif needed. No more than 2 doses/24 hours and 3 doses/week. A complete dose is 2 sprays: 1 spray in each nostril.1 ml erenumab-aooe 140 mg/ml auto-injector (20 sources)Start: 08-29-4709adikxr 1 mL by subcutaneous injection every month erenumab-aooe 140 mg/mL subcutaneous auto-injector (AIMOVIG) Inject 1 mL under the skin once every month. 1 mL 07/21/2023 ActiveStart: 07-18-2021 End: 10-76-0749pqzjbo 140 mg by subcutaneous injection every montherenumab-aooe 140 mg/mL subcutaneous auto-injector (AIMOVIG) INJECT 140 MG SUBCUTANEOUSLY ONCE EVERY MONTH. 1 mL 07/24/2022 Activeinject 1 mL by subcutaneous injection every monthAimovig 70 MG/ML 1 ml Subcutaneous ONCE A MONTH on the of every month ActiveComment on above:INJECT 140 MG SUBCUTANEOUSLY ONCE EVERY MONTH. Inject 1 mL under the skin once every month.Imitrex 100 mcg/spray (7 sources)Imitrex 100 mcg/spray one spray nasally at onset of headache prn Not-TakingImitrex 100 mcg/spray one spray nasally at onset of headache prn ActiveImitrex 100 mcg/spray one spray nasally at onset of headache Not-Taking Imitrex 100 mcg/spray one spray nasally at onset of headache ActiveMultivitamin preparation (16 sources)Start: 12-16-2023 End: 08-12-1749yftz 1 tablet by mouth once dailyMultivitamin Discontinued 1 TAB PO Daily December 16, 2023 1:00am December 20, 2023 3:47pmtake 1 tablet by mouth once dailyMultivitamin - 1 tablet Orally Once a day ActiveMultivitamin tablet (14 sources)Start: 12-16-2023 End: 84-15-8181ghxs 1 tablet by mouth once dailyMultivitamin tablet Discontinued 1 TAB PO Daily December 16, 2023 1:00am December 20, 2023 3:47pmStart: 12-16-2023 End: 44-71-1088lqle 1 tablet by mouth once dailyMultivitamin tablet Discontinued 1 TAB PO Daily December 16, 2023 12:00am December 20, 2023 2:47pmoxyCODONE hydrochloride 5 mg oral tablet (10 sources)Opioid AgonistStart: 01-09-2025 End: 43-81-2646cmty 1 tablet by mouth every six hours as needed for pain Oxycodone 5 mg tablet Discontinued 5 MG PO Q6H as needed for Pain 20 5 0 January 09, 2025 June 27, 2025 2:38pm Status post arthroscopy of left shoulder Other specified postprocedural states DO NOT RECONCILE UNTIL DOS 01/10/25 TO BE USED POST OPrizatriptan 10 mg oral tablet (20 sources)Serotonin-1b and Serotonin-1d Receptor AgonistStart: 09-23-2020 rizatriptan (MAXALT) 10 mg tablet 1 tab at earliest sign of migraine. May repeat once in 2 hours ifneeded. Give max allowed per insurance. 27 tablet 3 09/23/2020 ActiveComment on above:1 tab at earliest sign of migraine. May repeat once in 2 hours if needed. Give max allowed per insurance.rosuvastatin calcium 5 mg oral tablet (20 sources)HMG-CoA Reductase InhibitorStart: 06-13-2024 End: 32-92-9293wftc 1 tablet by mouth once dailyRosuvastatin 5 mg tablet Discontinued 0 .ROUTE .COMPLEX 90 1 June 13, 2024 8:07am December 26, 2024 3:21pm TAKE 1 TABLET BY MOUTH EVERY DAYStart: 12-29-2023 End: 65-43-8380nhbv 1 tablet by mouth once dailyRosuvastatin 5 mg tablet Discontinued 0 .ROUTE .COMPLEX 90 1 December 29, 2023 2:05pm March 22, 2024 2:49pm TAKE 1 TABLET BY MOUTH EVERY DAYStart: 06-09-2023 End: 14-83-4849jumk 1 tablet by mouth once dailyRosuvastatin 5 mg tablet Discontinued 5 MG PO Daily March 22, 2024 2:49pm June 13, 2024 8:07amComment on above:Take 1 tablet by mouth every afternoon.SUMAtriptan 20 mg/actuat nasal spray (7 sources)Serotonin-1b and Serotonin-1d Receptor AgonistStart: 07-24-2022 SUMAtriptan (IMITREX) 20 mg/actuation nasal spray 1 spray in 1 nostril at migraine onset. May repeat once in 2 hours if needed. 8 Each 07/24/2022 ActiveComment on above:1 spray in 1 nostril at migraine onset. May repeat once in 2 hours if needed.triamcinolone acetonide 40 mg/ml injectable suspension (14 sources)CorticosteroidStart: 05-50-8642Ejumqbg-40 Jan, 40 mgStart: 45-97-9813Adgiine -40 mg Jan, 40 mgubrogepant 100 mg oral tablet (20 sources)Start: 11-26-2023 End: 24-05-3511Caiyavrpfi (Ubrelvy) 100 mg tablet Discontinued 100 MG PO as needed December 16, 2023 1:00am December 19, 2024 3:31pmComment on above: Take 1 tab at migraine onset. May repeat once in 2 hours as needed.zinc gluconate 50 mg oral tablet (5 sources)take 1 tablet by mouth every twenty-four hoursZinc 50 MG 1 tablet Orally Once a day Not-TakingZOLMitriptan 5 mg/actuat nasal spray (20 sources)Serotonin-1b and Serotonin-1d Receptor AgonistStart: 10-01-2021 ZOLMitriptan (ZOMIG) 5 mg nasal spray 1 spray in 1 nostril at headache onset. May repeat once in 2 hours if needed. Give max sprays allowed per insurance. 18 Each 3 10/01/2021 Active End: 35-34-6276HEUAsupvmjos (Zomig) 5 MG tablet 1 (one) time each day at the same time 11/08/2024 Discontinuedtake 2.5 mg nasal route once daily as needed Zomig 2.5 MG as directed Nasally Once a day PRN prn Not-TakingComment on above:1 spray in 1 nostril at headache onset. May repeat once in 2 hours if needed. Give max sprays allowed per insurance. Problems Active Problems Problem ClassificationProblemDateDocumented DateEpisodic/ChronicAcquired foot deformities (1 source)Hallux rigidus, right foot; Translations: [HALLUX RIGIDUS RIGHT FOOT] Onset: 91-12-6376KummyibMjuaiv; peripheral; and visceral artery aneurysms (3 sources)Dissection of vertebral artery; 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]Onset: 478719-64-0313MixqdfxGybduenpp and vision defects (15 sources)Diplopia; Translations: [Diplopia]72-71-3317QuyslcnxRjhufar kidney disease (20 sources)Chronic kidney disease; Translations: [Chronic kidney disease, unspecified]Onset: 05-25-2022 Resolved: 40-96-1655KcbfvscTdbmmvvp mellitus without complication (20 sources)Hyperglycemia, unspecified; Translations: [Hyperglycemia]Onset: 05-25-2022 Resolved: 94-55-3766NapuogndIjjcyqan of white blood cells (18 sources)Leukocytosis; Translations: [Elevated white blood cell count, unspecified]07-57-0093IoszoepWosquwslt of lipid metabolism (20 sources)Hypertriglyceridemia; Translations: [Pure hyperglyceridemia]Onset: 05-25-2022 Resolved: 76-84-9208DncpxflVxhfmybsx hypertension (15 sources)Elevated blood pressure; Translations: [Essential (primary) hypertension]ChronicFluid and electrolyte disorders (1 source)Hyperosmolality and hypernatremiaEpisodicGenitourinary symptoms and ill-defined conditions (2 sources)Urgency of urination; Translations: [Other abnormal findings in urine]Onset: 87-67-2782PziughloVjkmdbvc; including migraine (20 sources)Migraine; Translations: [Migraine, unspecified, not intractable, without status migrainosus]Onset: 10-11-2015 Resolved: 06-33-0436VnrwxllDclokjdtbmbq with complications and secondary hypertension (20 sources)Chronic kidney disease due to hypertension; Translations: [Hypertensive chronic kidney disease withstage 1 through stage 4 chronic kidney disease, or unspecified chronic kidney disease]Onset: 01-19-2022 Resolved: 73-19-5709TirswvjSbcnmu and vomiting (15 sources)Nausea; Translations: [Nausea]EpisodicNephritis; nephrosis; renal sclerosis (20 sources)Nephrosclerosis; 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)]Onset: 02-12-2022 Resolved: 44-01-3270SwmdtyrKrdjwbpooblkwb (15 sources)Osteoarthritis of right hip joint; Translations: [Unilateral primary osteoarthritis, right hip]Onset: 02-06-2022 Resolved: 05-37-8107KvacprdDlkwe aftercare (9 sources)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; Translations: [OTH [facility] CURRENT DRUG THERAPY]Onset: 05-09-2022 Resolved: 37-06-9733WlxbrbvmGocoo aftercare (3 sources)Surgical follow-up; Translations: [Encounter for removal of sutures] 10-64-1375NpepjldvXwfll aftercare (3 sources)Encounter for removal of sutures; Translations: [Encounter for removal of sutures]80-26-9042LgspafxbEeupc aftercare (6 sources)Removal of sutures done; Translations: [Encounter for removal of sutures]28-96-3973SsfobuukAleai connective tissue disease (3 sources)History of cervical spine fusion; Translations: [Arthrodesis status] EpisodicOther connective tissue disease (20 sources)Tear of left rotator cuff; Translations: [Unspecified rotator cuff tear or rupture of left shoulder, not specified as traumatic]97-41-7407Vghuovia Other connective tissue disease (20 sources)Disorder of shoulder; Translations: [Other shoulder lesions, left shoulder]12-50-9413ZgtyqeqxYfcnu connective tissue disease (20 sources)Tendinitis of left rotator cuff; Translations: [Other shoulder lesions, left shoulder]00-96-5661ZahzqpaaMduea connective tissue disease (12 sources)Unspecified rotator cuff tear or rupture of left shoulder, not specified as traumatic; Translations: [Rotator cuff (capsule) sprain]10-19-2024 EpisodicOther connective tissue disease (16 sources)Other shoulder lesions, left shoulder; Translations: [Disorders of bursae and tendons in shoulder region, unspecified]16-12-6333ZavnaqpuBwilc connective tissue disease (20 sources)Biceps tendinitis; Translations: [Bicipital tendinitis, left shoulder]52-98-5321DxwldaibIgwme connective tissue disease (10 sources)Bicipital tendinitis, left shoulder; Translations: [Bicipital tenosynovitis]49-36-8827SpokxczaYmqui connective tissue disease (16 sources)Triggering of digit; Translations: [Trigger finger, right middle finger]11-19-3469QpvhfigzZuvcu diseases of kidney and ureters (20 sources)Secondary hyperparathyroidism; Translations: [Secondary hyperparathyroidism of renal origin]25-57-9392LpcnilpQeyjb diseases of kidney and ureters (10 sources)Secondary hyperparathyroidism of renal origin; Translations: [Secondary hyperparathyroidism (of renal origin)]Onset: 02-12-2022 Resolved: 01-92-1711CyilxmgQjqjs inflammatory condition of skin (4 sources)Seborrheic dermatitis; Translations: [Other seborrheic dermatitis] 72-32-8599UapuzfwkOuvvf nervous system disorders (15 sources)Disturbance in speech; Translations: [Unspecified speech disturbances]08-07-8813JopqdfvyOleyi nutritional; endocrine; and metabolic disorders (11 sources)[place] hump; 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]ChronicOther nutritional; endocrine; and metabolic disorders (2 sources)Localized adiposity; Translations: [LOCALIZED ADIPOSITY]Onset: 05-25-2022 Resolved: 14-44-2243YkyetnyYxaur nutritional; endocrine; and metabolic disorders (20 sources)Hypomagnesemia; Translations: [Hypomagnesemia]27-94-0904RqjpybkWtvfx nutritional; endocrine; and metabolic disorders (8 sources)Hypomagnesemia; 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Other nutritional; endocrine; and metabolic disorders (9 sources)Abnormal weight gain; Translations: [Abnormal weight gain]Onset: 05-25-2022 Resolved: 98-94-7564PuncezklYqqmc nutritional; endocrine; and metabolic disorders (15 sources)Weight increased; Translations: [Abnormal weight gain]06-21-2024 EpisodicOther nutritional; endocrine; and metabolic disorders (14 sources)Intentional weight pzxx49-14-7523EtxlrhubLlckw screening for suspected conditions (not mental disorders or infectious disease) (20 sources)Screening status; Translations: [Encounter for screening for malignant neoplasm of colon]Onset: 05-25-2022 Resolved: 63-85-3347XnuuxlafZxqnctys codes; unclassified (20 sources)History of arthroscopic procedure on shoulder; Translations: [Other specified postprocedural states]72-24-2561NvexdligNtsufcedzlt; intervertebral disc disorders; other back problems (20 sources)Cervical spondylosis; Translations: [Spondylosis without myelopathy or radiculopathy, cervical region]Onset: 01-19-2022 Resolved: 56-32-6359RgfqvlePmveufxgcke; intervertebral disc disorders; other back problems (20 sources)Cervico-occipital neuralgia; Translations: [Occipital neuralgia] Onset: 96-51-7609DaynvckoXsfkkvbbusmj (1 source)CHRN KIDNEY DISEASE STG 3 UNSP; Translations: [CHRN KIDNEY DISEASE STG 3 UNSP]Onset: 68-19-2442Txuevnjbctpg (1 source)CONTACT W/AND (SUSP) EXPOS COVID-19; Translations: [CONTACT W/AND (SUSP) EXPOS COVID-19]Onset: 75-68-7862Iyunbyydfdrg (1 source)Intentional weight loss; Translations: [Intentional weight loss] 08-26-9178Terfedv tract infections (13 sources)Urinary tract infectious disease; Translations: [Urinary tract infection, site not specified]83-33-6018LcejnnhwCnoyg infection (18 sources)Viral disease; Translations: [Viral infection, unspecified] 22-51-8585Uyzyiaqa Past or Other Problems Problem ClassificationProblemDateDocumented DateEpisodic/ChronicAcquired foot deformities (4 sources)Other deformities of toe(s) (acquired), right foot; Translations: [OTHER DEFORMITIES TOES ACQ RT FOOT]Onset: 96-32-3812XlnprzuzStlttuc kidney disease (4 sources)Chronic kidney disease; Translations: [Chronic kidney disease, stage 3 unspecified]Onset: 02-12-2022 Resolved: 88-02-1660Ssngukzmuv and other anemia (1 source)Anemia, unspecifiedOnset: 05-25-2022 Resolved: 50-00-1845VotwrwkoKbsacuvf; including migraine (20 sources)Chronic daily headache; Translations: [Chronic daily headache]Onset: 586490-27-3160YamjotjiCiuww bone disease and musculoskeletal deformities (1 source)Disorder of bone, unspecified; Translations: [DISORDER OF BONE UNSPECIFIED]Onset: 72-76-5829KmzxajyaCtoyq connective tissue disease (1 source)Pain in right footOnset: 01-19-2022 Resolved: 05-82-6323VowkkfxbXceuk connective tissue disease (1 source)Trochanteric bursitis, right hipOnset: 02-06-2022 Resolved: 85-54-7030PxzgokptEwkpz connective tissue disease (20 sources)Chronic musculoskeletal pain; Translations: [Myalgia, other site] Onset: 312944-26-4192FtbcbvyhJhnem connective tissue disease (1 source)Arthrodesis status; Translations: [ARTHRODESIS STATUS]Onset: 69-84-1706KpignzfqSawed connective tissue disease (1 source)Complete rotator cuff tear or rupture of left shoulder, not specified as traumatic; Translations: [Complete rotator cuff tear or rupture of left shoulder, not specified as traumatic]Onset: 17-50-1364GwtvnzkvBrotk non- traumatic joint disorders (1 source)Pain in unspecified hipOnset: 01-19-2022 Resolved: 63-83-7355SwzktfxeEpfkh non-traumatic joint disorders (5 sources)Pain in right hip; Translations: [PAIN IN RIGHT HIP]Onset: 01-20-2022 Resolved: 33-69-5991AiqzyqpaCynjs non-traumatic joint disorders (1 source)Osteophyte, right foot; Translations: [OSTEOPHYTE RIGHT FOOT]Onset: 86-47-2290BckicnwaClzap non-traumatic joint disorders (20 sources)Pain in left shoulder; Translations: [Left shoulder pain]Onset: 089832-26-6330RvgsckrrZsoic skin disorders (1 source)Corns and callosities; Translations: [CORNS AND CALLOSITIES]Onset: 33-88-2582ObkuqxzeKthxbjna codes; unclassified (1 source)Acquired absence of both cervix and uterus; Translations: [ACQUIRED ABSENCE BOTH CERVIX AND UTERUS]Onset: 11-10-6894OmgnvnscOdqrbmmx codes; unclassified (5 sources)Other specified postprocedural states; Translations: [Other postprocedural status]Onset: 921332-17-0739Fesxgtbh Results Test NameValueInterpretationReference RangeFacilityMM screening mammo BI w/CADon 98-77-6812QX screening mammo BI w/[facility] [address] [place] [address] Mammography Report Signed Patient: Myrtle Jones MR#: [id number] : 1965 Acct:[id number] Age/Sex: 60 / F Adm Date: 08/20/25 Loc: [place] Room: Type: [facility] Attending Dr: Anand Garcia DO Ordering Provider: Anand Garcia DO Date of Service: 08/20/25 Procedure(s): MM screening mammo BI w/CAD Accession Number(s): ([id number]) MM/MM screening mammo BI w/CAD: Z12.31 - Encounter for screening mammogram for malignant ... Copies to: Anand Garcia DO CLINICAL DATA: Screening for malignancy. BILATERAL SCREENING [...] Do M.D. 08/20/2025 4:00 PM Dictation Location: [facility] Dictated By: Benji Do II, MD 08/20/25 1559 Signed By: 08/20/[address] [place] [address] [facility]ician [facility] HospitalMammography reportOrdered By: Benji Do on 20-41-6472Geobggcqbj imaging [facility] [address] [place] [address] Mammography Report Signed Patient: Myrtle Jones MR#: [id number] : 1965 Acct:[id number] Age/Sex: 60 / F Adm Date: 5 Loc: [place] Room: Type: [facility] Attending Dr: Anand Garcia DO Ordering Provider: Anand Garcia DO Date of Service: 08/20/25 Procedure(s): MM screening mammo BI w/CAD Accession Number(s): ([id number]) MM/MM screening mammo BI w/CAD: Z12.31 - Encounter for screeningmammogram for malignant ... Copies to: Anand Garcia DO~ CLINICAL DATA: Screening for malignancy. BILATERAL SCREENING MAMMOGRAMS - FULL FIELD DIGITAL WITH TOMOSYNTHESIS AND CAD Tomosynthesis craniocaudal and mediolateral oblique views of both breasts were obtained using low-dose digital technique. Comparison is made to prior studies from 08/18/2024, 07/29/2023, 06/02/2022, and06/06/2021. This examination was reviewed with the aid of CAD. There are scattered fibroglandular densities. Benign-appearing calcifications are present. There are no dominant masses, typically malignant calcifications or architectural distortion. There has beenno significant interval change. MM/MM screening mammo BI [...] Do M.D. 08/20/2025 4:00 PM Dictation Location: [facility] Dictated By: Benji Do II, MD 08/20/25 9759 Signed By: 08/20/[address] [place] [address] Work Phone: Laboratory - Chemistry and Chemistry - challenge Ordered By: Anand Garcia on 95-77-2080Qpragnlns Ql (U)NegativeNEGATIVEChillicothe Va Medical CenterGlucose (U) [Mass/Vol]NegativeNEGATIVEChillicothe Va Medical CenterKetones Ql (U)NegativeNEGATIVEChillicothe Va Medical CenterpH (U)7.0 [pH]5.0-9.0[facility] Greene Memorialpecific gravity (U) [Rel density]1.0101.005-1.025[facility] Medical CenterUrobilinogen Qn (U)0.2 {Tara'U}/dL0.2-1.0[facility] CenterLaboratory - Specimen informationOrdered By: Anand Garcia on 48-68-3556Aosvyefhoa (U)CLEARCLEAR [facility] CenterColor (U)LT. YELLOWYELLOWChillicothe Va Medical CenterLaboratory - UrinalysisOrdered By: Anand Garcia on 07-04-2025 Leukocyte esterase Test strip Ql (U)TRACEAbnormalNEGATIVEChillicothe Va Medical CenterNitrite Ql (U)NegativeNEGATIVEChillicothe Va [facility] Center Protein Ql (U)NegativeNEG/TRACEChillicothe Va Medical CenterNo Panel InformationOrdered By: Anand Garcia on 56-45-4242Thdqe Occult BloodNegative NEGATIVEChillicothe Va Medical CenterUrine Cultureon 84-52-5975Vwxhzozl identified Cx Nom (U)40,000 colonies/ml mixed bacterial skin contaminants 2 Days PERFORMED BY: [place] [address] PATHOLOGIST SENIOR SALES ASSOCIATE VLADIMIR POST M.D.NormalAdventhealth Winter Garden Physician GroupComment on above: Performed By: #### CUU #### [facility] [address] [place], [place] [id number] USAAppearance of UrineOrdered By: Ely No on 06-22-2025 Appearance (U)TurbidCritically abnormalCleMercy Health St. Charles Hospital Comment on above:Order Comment: Name Collection Type:: Clean-Voided Midstream Performed By: #### FREDRICKUAPLUS, CUU #### [facility] [address] [place] [address] USABacteria [Presence] in Urine by AutomatedOrdered By: Ely No on 88-88-7451Kxofjygi Auto Ql (U)None seen [HPF]None SeenChillicothe Va Medical CenterBilirubin Test strip Ql (U)Ordered By: Ely No on 65-62-9879Zypruhcnk Ql (U)NegativeNegativeChillicothe Va Medical CenterColor of Urine by AutoOrdered By: Ely No on 53-36-1518Zgzjq (U)YellowNormal YellowChillicothe Va Medical CenterComment on above:Order Comment: Name Collection Type:: Clean-Voided MidstreamPerformed By: #### ADDONUAPLUS, CUU #### [place] [address] USACrystals [Presence] in Urine by AutomatedOrdered By: Ely No on 02-93-6232Plujnnxt Auto Ql (U)1+ [HPF][facility] Medical CenterDipstick and Microscopicon 68-79-2859Bbpiikkm,UrineNone SeenNormalNone SeenThe Ecu Health Physician GroupComment on above:Order Comment: Name Collection Type:: Clean-Voided MidstreamPerformed By: #### ADDONUAPLUS, CUU #### [place] [address] USABilirubin,UrineNegativeNormalNegativeThe Ecu Health Physician GroupComment on above:Order Comment: Name Collection Type:: Clean- Voided MidstreamPerformed By: #### ADDONUAPLUS, CUU #### [place] [address] USABudding Yeast,Urine2+ [HPF]NormalNone SeenThe Ecu Health Physician GroupComment on above:Order Comment: Name Collection Type:: Clean- Voided MidstreamResult Comment: PERFORMED BY: [place] [address] PATHOLOGIST SENIOR SALES ASSOCIATE VLADIMIR POST M.D.Performed By: #### ADDONUAPLUS, CUU #### [place] [address] USAGlucose Ql (U)NormalNormalNormalThe Ecu Health Physician GroupComment on above:Order Comment: Name Collection Type:: Clean-Voided MidstreamPerformed By: #### ADDONUAPLUS, CUU #### [place] [address] USAHyaline Casts,UrineNoneNormal0-8The [facility]cu Health Physician GroupComment on above:Order Comment: Name Collection Type:: Clean-Voided MidstreamPerformed By: #### ADDONUAPLUS, CUU #### [place] [address] USAMucus,UrineRareNormalThe [facility]cu Health Physician GroupComment on above:Order Comment: Name Collection Type:: Clean-Voided MidstreamPerformed By: #### ADDONUAPLUS, CUU #### [place] [address] USANitrite,UrineNegativeNormalNegativeThe [facility]cu Health Physician GroupComment on above:Order Comment: Name Collection Type:: Clean-Voided MidstreamPerformed By: #### ADDONUAPLUS, CUU #### [place] [address] USAOccult Blood,Urine3+NormalNegativeThe [facility]cu Health Physician GroupComment on above:Order Comment: Name Collection Type:: Clean-Voided MidstreamResult Comment: PERFORMED BY: [place] [address] PATHOLOGIST SENIOR SALES ASSOCIATE VLADIMIR POST M.D.Performed By: #### ADDONUAPLUS, CUU #### [place] [address] USAOthe Crystals,Urine1+ [HPF]NormalThe [facility]cu Health Physician GroupComment on above:Order Comment: Name Collection Type:: Clean-Voided MidstreamPerformed By: #### ADDONUAPLUS, CUU #### [place] [address] USARBC,UrineInnumerableNormal0-4The [facility] Comment on above:Order Comment: Name Collection Type:: Clean-Voided Midstream Performed By: #### ADDONUAPLUS, CUU #### [place] [address] USASpecificy [place],Urine1.751Wzgvvn5.001-1.030Ad[facility] Physician GroupComment on above:Order Comment: Name Collection Type:: Clean- Voided MidstreamPerformed By: #### ADDONUAPLUS, CUU #### [facility] [address] [place] [address] USASquamous Epithelial Cell,Dnjyi2-7Tcuqii9-1Hoy [facility] Health Physician GroupComment on above:Order Comment: Name Collection Type:: Clean- Voided MidstreamPerformed By: #### ADDONUAPLUS, CUU #### [place] [address] USAUrobilinogen,UrineNormalNormalNormalThe Ecu Health Physician GroupComment on above:Order Comment: Name Collection Type:: Clean- Voided MidstreamPerformed By: #### ADDONUAPLUS, CUU #### [place] [address] USAWBC CLUMP, UrineManyNormalNone SeenThe Ecu Health Physician GroupComment on above:Order Comment: Name Collection Type:: Clean-Voided MidstreamPerformed By: #### ADDONUAPLUS, CUU #### [place] [address] USAWBC,UrineInnumerableNormal0-4The [facility] Comment on above:Order Comment: Name Collection Type:: Clean-Voided Midstream Performed By: #### ADDONUAPLUS, CUU #### [facility] [address] [place] [address] USAEpithelial cells.squamous [#/area] in Urine sediment by Automated countOrdered By: Ely No on 18-75-5377Ikbndnemgf cells.squamous Auto (Urine sed) [#/Area]1-2 [HPF]0-2FMercy Hospital Erythrocytes [#/area] in Urine sediment by Automated countOrdered By: Ely No on 78-23-3564CPK Auto (Urine sed) [#/Area]Innumerable [HPF]High0-4FMercy HospitalGlucose [Mass/volume] in Urine by Test stripOrdered By: Ely No on 95-21-6259Njxcdmm Test strip (U) [Mass/Vol]Normal mg/dLNormal [facility] CenterHemoglobin Test strip Ql (U)Ordered By: Ely No on 92-13-2705Djbtvslpoj Ql (U)3+HighNegativeChillicothe Va Medical CenterHyaline casts [#/area] in Urine sediment by Automated countOrdered By: Ely No on 48-91-2822Zqoznsx casts Auto (Urine sed) [#/Area]None [LPF]0-8 [facility] CenterKetones [Presence] in Urine by Test strip Ordered By: Ely No on 25-73-5835Mkjaeaf Ql (U)NegativeNormalNegative [facility] CenterComment on above:Order Comment: Name Collection Type:: Clean-Voided MidstreamPerformed By: #### ADDONUAPLUS, CUU #### [place] [address] USALaboratory - Chemistry and Chemistry - challengeOrdered By: Ely No on 44-11-8418Hvwddhvup Ql (U)[facility] HospitalGlucose (U) [Mass/Vol]NegativeChillicothe Va Medical CenterKetones Ql (U)[facility] HospitalpH (U)7.0 [pH][facility] Memorialpecific gravity (U) [Rel density]>=1.030Ch[facility] Va Medical CenterUrobilinogen (U) [Mass/Vol]0.2 mg/dLChillicothe Va Medical CenterLaboratory - Specimen informationOrdered By: Ely No on 06-22-2025 Appearance (U)cloudyChillicothe Va Medical CenterColor (U)yellowChillicothe Va Medical CenterLaboratory - UrinalysisOrdered By: Ely No on 73-72-6896Cpkopnnoi esterase Test strip Ql (U)smallChillicothe Va Medical CenterNitrite Ql (U)NegativeChillicothe Va Medical CenterProtein Ql (U)>=300 [facility] CenterLeukocyte clumps [Presence] in Urine by AutomatedOrdered By: Ely No on 39-71-9708Nwrixzpss clumps Auto Ql (U)Many [LPF]HighNone SeenChillicothe Va Medical CenterLeukocyte esterase [Presence] in Urine by Test stripOrdered By: Ely No on 20-71-4206Wqemukdaz esterase Test strip Ql (U)4+NormalNegSelect Medical Specialty Hospital - YoungstownComment on above:Order Comment: Name Collection Type:: Clean-Voided MidstreamPerformed By: #### ARRON, CUU #### [facility] [address] [id number] USALeukocytes [#/area] in Urine sediment by Automated count Ordered By: Ely No on 90-94-4524ANF Auto (Urine sed) [#/Area]Innumerable [HPF]High0-4FMercy HospitalMucus [Presence] in Urine by AutomatedOrdered By: Ely No on 87-28-7992Ndgoy Auto Ql (U)Rare [LPF] [facility] CenterNitrite Test strip Ql (U)Ordered By: Ely No on 04-31-0673Aklsqqx Ql (U)NegativeNegSelect Medical Specialty Hospital - YoungstownNo Panel InformationOrdered By: Ely No on 17-30-8032Ezqym Occult BloodlargeChillicothe Va Medical CenterProtein [Mass/volume] in Urine by Test stripOrdered By: Ely No on 70-58-3497Hlpxhyq (U) [Mass/Vol]100 mg/dL NormalNegSelect Medical Specialty Hospital - YoungstownComment on above:Order Comment: Name Collection Type:: Clean-Voided MidstreamPerformed By: #### ARRON CUU #### [facility] [address] [id number] USASpecific gravity Test strip (U) [Rel density]Ordered By: Ely No on 40-47-6476Gubjzppr gravity (U) [Rel density]1.0221.001-1.030 [facility] CenterUrine Cultureon 04-06-2897Ttihksvv identified Cx Nom (U)ORGANISM: Escherichia coli (O:ESCCOL) [place] Count >100,000 Aerobic CHANEL Charge (NMIC56) SUSCEPTIBILITY ORGANISM: O:ESCCOL ANTIBIOTIC INTERPRETATION CHANEL Amikacin S <16 Amoxacillin/K Clavulanate S <8 Ampicillin S <8 Ampicillin/Sulbactam S <4 Aztreonam S <4 Cefazolin S <2 Cefepime S <2 Ceftazidime S <1 Ceftazidime/Avibactam S <4 Ceftolozane/Tazobactam S <2 Ceftriaxone S <1 Cefuroxime S <4 Ciprofloxacin S <0.25 Ertapenem S <0.5 Gentamicin S <2 Levofloxacin S <0.5 Meropenem S <1 Meropenem/Vaborbactam S <2 Nitrofurantoin S <32 Piperacillin/Tazobactam S <8 Tetracycline S <4 Tigecycline S <2 Tobramycin S <2 Trimethoprim/Sulfamethoxazole S <0.5 S = SUSCEPTIBLE I = [...] RESISTANT TO ALL B-LACTAM DRUGS. PERFORMED BY: [place] [address] PATHOLOGIST SENIOR SALES ASSOCIATE VLADIMIR POST M.D.NormalAdventhealth Winter Garden Physician GroupComment on above: Performed By: #### CHING HELLER #### [place] [address] USAUrine cultureOrdered By: Ely No on 03-29-2409Stwkgmrh identified Cx Nom (U)Escherichia coliAbnoDiley Ridge Medical Center Urobilinogen Test strip (U) [Mass/Vol]Ordered By: Ely No on 06-22-2025 Urobilinogen (U) [Mass/Vol]Normal mg/dLNoDiley Ridge Medical Center Yeast.budding [Presence] in Urine by Computer assisted methodOrdered By: Ely No on 71-45-0125Exxyc.budding Computer assisted Ql (U)2+ [HPF]HighNone Seen [facility] CenterpH of Urine by Test stripOrdered By: Ely No on 98-98-9098rM (U)7.0 [pH]Normal5.0-9.0[facility] Comment on above:Order Comment: Name Collection Type:: Clean-Voided Midstream Performed By: #### NELLIETITAUAADOLPH, CUU #### [facility] [address] [place] [address] USABasophils Auto (Bld) [#/Vol]Ordered By: Anand Garcia on 49-62-7421Opdzzymbb (Bld) [#/Vol]0.0 10 3/uL0.0-0.1FMercy HospitalBasophils/100 WBC Auto (Bld)Ordered By: Anand Garcia on 06-16-2025 Basophils/100 WBC (Bld)0.5 %0.2-2.0[facility] CenterCholesterol in LDL Calc [Mass/Vol]Ordered By: Anand Garcia on 31-85-6264Xhnesnwbxgb in LDL [Mass/Vol]131.0 mg/dLChillicothe Va Medical CenterComment on above:<100 mg/dl TWCSATP529-567 mg/dl NEAR OR ABOVE VIEHXJU553-053 mg/dl BORDERLINE CVUU969-480 mg/dl HIGH>190 mg/dl VERY HIGHCholesterol in VLDL Calc [Mass/Vol] Ordered By: Anand Garcia on 77-16-6540Sdsyseoympo in VLDL [Mass/Vol]26.8 mg/dL [facility] CenterEosinophils/100 WBC Auto (Bld)Ordered By: Anand Garcia on 73-47-6573Vzlweufysoa/100 WBC (Bld)0.0 %Low0.9-7.0[facility] CenterErythrocyte distribution width Auto (RBC) [Ratio]Ordered By: Anand Garcia on 26-98-7731Edtfckmihfn distribution width (RBC) [Ratio]12.4 %11.0-15.0 [facility] CenterGlobulin Calc (S) [Mass/Vol]Ordered By: Anand Garcia on 31-25-6406Tsrjxouf (S) [Mass/Vol]3.3 g/dLChillicothe Va Medical CenterGlomerular filtration rate (GFR) estimation in non- AmericanOrdered By: Anand Garcia on 83-62-3381JOA/1.73 sq M.predicted among non-blacks MDRD (S/P/Bld) [Vol rate/Area]54 mL/min/{1.73_m2}Low>=60 mL/min/1.73m 2FMercy HospitalGlucose mean value [Mass/volume] in Blood Estimated from glycated hemoglobinOrdered By: Anand Garcia on 90-82-3796Qvrgoxq glucose Estimated from glycated hemoglobin (Bld) [Mass/Vol]103 mg/dLChillicothe Va Medical CenterHematocrit Auto (Bld) [Volume fraction]Ordered By: Anand Garcia on 58-69-0236Odgvynlwia (Bld) [Volume fraction]36.7 %36.0-48.0[facility] CenterHemoglobin A1c percentageOrdered By: Anand Garcia on 06-16-2025 HbA1c (Bld) [Mass fraction]5.2 %4.5-6.2FMercy HospitalComment on above:ADA RECOMMENDED LIMIT 4.0 - 6.0ADA THERAPEUTIC TARGET < 7.0ACTION SUGGESTED> 7.0Hemoglobin [Mass/volume] in BloodOrdered By: Anand Garcia on 48-00-4939Acjmgffauj (Bld) [Mass/Vol]12.7 g/dL12.0-16.0[facility] CenterLaboratory - Chemistry and Chemistry - challengeOrdered By: Anand Garcia on 80-69-4860Htwkzca [Mass/Vol]3.9 g/dL3.4-5.0[facility] CenterALP [Catalytic activity/Vol]44 U/MHkn52-181YqqjutwpnChillicothe Va Medical CenterALT [Catalytic activity/Vol]23 U/G68-66RuiflprwvChillicothe Va Medical Center AST [Catalytic activity/Vol]16 U/J89-85YzwaefykvChillicothe Va Medical Center Bilirubin [Mass/Vol]0.8 mg/dL0.2-1.0[facility] CenterCalcium [Mass/Vol]8.9 mg/dL8.5-10.1FMercy HospitalChloride [Moles/Vol] 107 mmol/K77-022UpvgnpfvlChillicothe Va Medical CenterCholesterol [Mass/Vol]207 mg/dL High<=200[facility] CenterCholesterol in HDL [Mass/Vol]50 mg/dL 40-60[facility] CenterComment on above:> or =60 mg/dl - LOW CARDIOVASCULAR RISK<40 mg/dl - HIGH CARDIOVASCULAR RISKCO2 [Moles/Vol]30.9 mmol/L21.0-32.0[facility] CenterCreatinine [Mass/Vol]1.05 mg/dL High0.55-1.02[facility] CenterGFR/1.73 sq M.predicted MDRD (S/P/Bld) [Vol rate/Area]mL/min/{1.73_m2}>=60 mL/min/1.73m 2FMercy HospitalGlucose [Mass/Vol]98 mg/eY32-253NjxkjrupdChillicothe Va Medical Center Potassium [Moles/Vol]4.1 mmol/L3.5-5.1FMercy HospitalProtein [Mass/Vol]7.2 g/dL6.4-8.2FNorwalk Memorial Hospitalodium [Moles/Vol]142 mmol/L397-829CnhxpnkqwChillicothe Va Medical CenterTriglyceride [Mass/Vol]134 mg/dL <=150[facility] CenterUrea nitrogen [Mass/Vol]16.0 mg/dL7.0-18.0 [facility] CenterUrea nitrogen/Creatinine [Mass ratio]15.2 mg/mg [facility] CenterLaboratory - Hematology and Cell countsOrdered By: Anand Garcia on 52-84-5463Jffhxdln granulocytes/100 WBC (Bld)0.1 %0.0-0.5 [facility] CenterLeukocytes [#/volume] corrected for nucleated erythrocytes in Blood by Automated counOrdered By: Anand Garcia on 81-22-3568YQD corrected for nucl RBC Auto (Bld) [#/Vol]7.5 10 3/uL4.0-11.0[facility] CenterLymphocytes Auto (Bld) [#/Vol]Ordered By: Anand Garcia on 77-82-5800Kjprmmuiwqw (Bld) [#/Vol]2.6 10 3/uL1.2-3.8[facility] CenterLymphocytes/100 WBC Auto (Bld)Ordered By: Anand Garcia on 06-16-2025 Lymphocytes/100 WBC (Bld)34.8 %20.5-60.0[facility] Auto (RBC) [Entitic mass]Ordered By: Anand Garcia on 12-09-5300MYW (RBC) [Entitic mass]31.4 pg26.7-34.0[facility] CenterMCHC Auto (RBC) [Mass/Vol]Ordered By: Anand Garcia on 92-40-7612EUOW (RBC) [Mass/Vol]34.6 g/dL 29.9-35.2FMercy HospitalMCV Auto (RBC) [Entitic vol]Ordered By: Anand Garcia on 36-85-9812AKR (RBC) [Entitic vol]90.8 fL81.0-99.0[facility] CenterMonocytes Auto (Bld) [#/Vol]Ordered By: Anand Garcia on 29-54-2252Swqnwvehx (Bld) [#/Vol]0.5 10 3/uL0.3-0.8[facility] CenterMonocytes/100 WBC Auto (Bld)Ordered By: Anand Garcia on 06-16-2025 Monocytes/100 WBC (Bld)7.2 %1.7-12.0[facility] Medical CenterNeutrophils Auto (Bld) [#/Vol]Ordered By: Anand Garcia on 66-26-1772Hmtuvilqarh (Bld) [#/Vol]4.3 10 3/uL1.4-6.5FMercy HospitalNeutrophils/100 WBC Auto (Bld)Ordered By: Anand Garcia on 08-72-8471Psbcwvckrtj/100 WBC (Bld)57.4 % 43.0-75.0[facility] CenterNo Panel InformationOrdered By: Anand Garcia on 41-82-2448Yqwjhjfjxnv # (Auto)0.0 10 3/uL0.0-0.7FMercy HospitalImmature Granulocyte # (Auto)0.01 10 3/uL0.00-0.03[facility] Medical CenterPlatelet mean volume Auto (Bld) [Entitic vol]Ordered By: Anand Garcia on 41-71-6862Axgkklkd mean volume (Bld) [Entitic vol]10.2 fL 9.5-13.5FMercy HospitalPlatelets Auto (Bld) [#/Vol]Ordered By: Anand Garcia on 94-76-5701Yxmxpbiip (Bld) [#/Vol]274 10 3/dY568-749PkzpugivvChillicothe Va Medical CenterRBC Auto (Bld) [#/Vol]Ordered By: Anand Garcia on 73-70-5139GGZ (Bld) [#/Vol]4.04 10 6/uLLow4.20-5.40[facility] Memorialerum or plasma albumin/globulin mass ratioOrdered By: Anand Garcia on 28-85-0534Sehuwzd/Globulin [Mass ratio]1.2 {ratio}[facility] Memorialerum or plasma anion gap determinationOrdered By: Anand Garcia on 39-45-4463Acygq gap [Moles/Vol]8.2 mmol/LFNorwalk Memorial Hospitalerum or plasma total cholesterol/high density lipoprotein (HDL) cholesterol mass rat Ordered By: Anand Garcia on 63-70-1714Cohwtmmtvxi.total/Cholesterol in HDL [Mass ratio]4.1 {ratio}[facility] Medical CenterComment on above:3.3 - 4.4 LOW RISK4.4 - 7.1 AVERAGE RISK7.1 - 11.0 MODERATE RISK>11.0 HIGH RISKCNOVon 76-42-6184KWNASbbhlv Visit ([facility]) MYRTLE JONES ([id number]) 1965 F Date Time Provider Department 04/04/25 4:00 PM SIMONA CARLSON VTELAYNE During your visit today, we recorded the following information about you: Blood pressure Weight Height 148/82 68 kg 1.702 m Simona Carlson APRN.CNP 04/04/2025 4:24 PM Signed [facility] - [...] more migraines over the past few months. [employer] is working about 80% of the time. [...] treatment: Qulipta, Propranolol, Magnesium Current abortive treatment: [employer] (works about 80% of the time), Excedrin Relieving factors: Medication, laying down, rest/sleep Aura: scotoma (Squiggly lines. Lasts about 30 minutes.) Denies any change in typical migraine/headache pattern. Prior Therapies Duration of Use Dose Reason for Discontinuation Other Therapies Nerve blocks Analgesic Butalbital/acetaminophen/caffeine (Fioricet) Hydrocodone/Acetaminophen (Vicodin, [place]) Anti-Convulsant Topiramate (Topamax, Trokendi XL, Qudexy) Anti-Depressant [...] these with the patient: Yes, Simona Carlson APRN.LABOR REPRESENTATIVE HEADACHE SCORES: 03/22/2024 10/01/202403/2803/28/2025 Headache Questions ER visits since last office visit: 0 0 0 Hospital stays since last office visit 0 0 0 Limited ADLs in the last month: 2 3 6 Days missed from work or school in the last month: 1 0 0 Days headache pain free in the last month: 20 27 2 (more content not included)...NormalUniversity Hospitals Geauga Medical Center ClevelandX-ray reportOrdered By: Seth Monroe on 04-38-9883Imhdi reportFIRSELECT MEDICAL [facility] [place] [facility] [address] [place] [address] XRay Report Signed Patient: Myrtle Jones MR#: [id number] : 1965 Acct:[id number] Age/Sex: 59 / F ADM Date: 5 Loc: [facility] [place] Room: Type: [facility] Attending Dr: Ralph Hoff DO Copies [...] Seth Monroe M.D.01/22/2025 4:44 PM Dictation Location: [place] [address] Transcribed By: [facility] 01/22/25 1644 Dictated By: Seth Monroe DO 01/22/25 164 Signed By: 01/22/25 1644 [facility] CenterXR shoulder LT min 2V*on 34-64-6264TO shoulder LT min 2V*[facility] [place] [facility] [place] [address] XRay Report Signed Patient: Myrtle Jones MR#: [id number] : 1965 Acct:[id number] Age/Sex: 59 / F ADM Date: 01/22/25 Loc: [facility] [place] Room: Type: [facility] Attending Dr: Ralph Hoff DO Copies [...] Seth Monroe M.D.01/22/2025 4:44 PM Dictation Location: [place] [address] Transcribed By: [facility] 01/22/25 1644 Dictated By: Seth Monroe DO 01/22/25 1643 Signed By: 01/22/25 1644[facility] Physician GroupAlanine aminotransferase [Enzymatic activity/volume] in Serum or PlasmaOrdered By: Ralph Hoff on 47-32-8860ITQ [Catalytic activity/Vol]Alanine aminotransferase [Enzymatic activity/volume] in Serum or Plasma7Ch[facility] Va Medical CenterAlbumin [Mass/volume] in Serum or Plasma by Bromocresol green (BCG) dye binding metho Ordered By: Ralph Hoff on 99-43-8484Kfzcjdu BCG dye [Mass/Vol]Albumin [Mass/volume] in Serum or Plasma by Bromocresol green (BCG) dye binding metho 3.5-5.7FMercy HospitalAlkaline phosphatase [Enzymatic activity/volume] in Serum or PlasmaOrdered By: Ralph Hoff on 15-28-0786WDO [Catalytic activity/Vol]Alkaline phosphatase [Enzymatic activity/volume] in Serum or Iudgkr76-395AkasmrgmlChillicothe Va Medical CenterAspartate aminotransferase [Enzymatic activity/volume] in Serum or PlasmaOrdered By: Ralph Hoff on 88-89-6314IYP [Catalytic activity/Vol]Aspartate aminotransferase [Enzymatic activity/volume] in Serum or Khdrnk69-18OwibiyzpxChillicothe Va Medical Center Basophils Auto (Bld) [#/Vol]Ordered By: Ralph Hoff on 51-45-1084Hcqxmazrm (Bld) [#/Vol]Automated basophil count0.0-0.2FMercy Hospital Basophils/100 WBC Auto (Bld)Ordered By: Ralph Hoff on 59-31-8059Ltejyarya/100 WBC (Bld)Automated basophil %.[facility] Medical CenterBilirubin.total [Mass/volume] in Serum or PlasmaOrdered By: Ralph Hoff on 82-47-4609Phtfbtxns [Mass/Vol]Bilirubin.total [Mass/volume] in Serum or Plasma0.3-1.0[facility] Medical CenterCMP with reflex to A1Con 16-76-0073Liglkaf [Mass/Vol]4.3 g/dLNormal3.5-5.7The [facility]cu Health Physician GroupComment on above:Performed By: #### CMP wRFX A1C, CBC #### [facility] [address] [place] [address] USAAlbumin/Globulin [Mass ratio]1.7 {ratio}NormalThe Ecu Health Physician GroupComment on above:Performed By: #### CMP wRFX A1C, CBC #### [facility] [address] [place] [address] USAALP [Catalytic activity/Vol]40 U/TJtaqte41-590Mcn [facility] Physician [facility] HospitalComment on above:Result Comment: PERFORMED BY: [place] [address] PATHOLOGIST SENIOR SALES ASSOCIATE NOREEN ARIAS M.D.Performed By: #### CMP wRFX A1C, CBC #### [place] [address] USAALT [Catalytic activity/Vol]13 U/LNormal7-52The [facility] Physician [facility] General HospitalComment on above:Performed By: #### CMP wRFX A1C, CBC #### [facility] [address] [place] [address] USAAnion gap [Moles/Vol]14.1 mmol/LNormal6.0-15.0The [facility] Health Physician GroupComment on above:Performed By: #### CMP wRFX A1C, CBC #### [address] [address] USAAST [Catalytic activity/Vol]15 U/ANmnbvg32-39Fdl [facility] Health Physician GroupComment on above:Performed By: #### CMP wRFX A1C, CBC #### [facility] [address] [place] [address] USABilirubin [Mass/Vol]0.6 mg/dLNormal0.3-1.0The [facility] Health Physician GroupComment on above:Performed By: #### CMP wRFX A1C, CBC #### [facility] [address] [place] [address] USACalcium [Mass/Vol]9.7 mg/dLNormal8.6-10.3The [facility] Health Physician GroupComment on above:Performed By: #### CMP wRFX A1C, CBC #### [facility] [address] [place] [address] USAChloride [Moles/Vol]104 mmol/BNfsvfi31-619Qad [facility] Health Physician GroupComment on above:Performed By: #### CMP wRFX A1C, CBC #### [facility] [address] [place] [address] USACO2 [Moles/Vol]25.3 mmol/PCdunrb28.0-31.0The [facility] Health Physician GroupComment on above:Performed By: #### CMP wRFX A1C, CBC #### [facility] [address] [place] [address] USACreatinine [Mass/Vol]0.90 mg/dLNormal0.60-1.20The [facility] Health Physician GroupComment on above:Performed By: #### CMP wRFX A1C, CBC #### [facility] [address] [place] [address] USAGFR/1.73 sq M.predicted MDRD (S/P/Bld) [Vol rate/Area] mL/min/{1.73_m2}NormalThe Ecu Health Physician GroupComment on above:Performed By: #### CMP wRFX A1C, CBC #### [facility] [address] [place] [address] USAGlobulin (S) [Mass/Vol]2.5 g/dLNormalThe Ecu Health Physician GroupComment on above:Performed By: #### CMP wRFX A1C, CBC #### [facility] [address] [place] [address] USAGlucose [Mass/Vol]84 mg/xSLlvbax84-959Pxu [facility] Health Physician GroupComment on above:Performed By: #### CMP wRFX A1C, CBC #### [facility] [address] [place] [address] USAPotassium [Moles/Vol]4.4 mmol/LNormal3.5-5.1The [facility] Health Physician GroupComment on above:Performed By: #### CMP wRFX A1C, CBC #### [facility] [address] [place] [address] USAProtein [Mass/Vol]6.8 g/dLNormal6.4-8.9The [facility] Health Physician GroupComment on above:Performed By: #### CMP wRFX A1C, CBC #### [facility] [address] [place] [address] USASodium [Moles/Vol]139 mmol/XOdhfkx934-003Lja [facility] Health Physician GroupComment on above:Performed By: #### CMP wRFX A1C, CBC #### [facility] [address] [place] [address] USAUrea nitrogen [Mass/Vol]21 mg/dLNormal7-25The [facility] Health Physician GroupComment on above:Performed By: #### CMP wRFX A1C, CBC #### [facility] [address] [place] [address] USACalcium [Mass/volume] in Serum or PlasmaOrdered By: Ralph Hoff on 77-25-7142Ijritzq [Mass/Vol]Calcium [Mass/volume] in Serum or Plasma 8.6-10.3FMercy HospitalCarbon dioxide, total [Moles/volume] in Serum or PlasmaOrdered By: Ralph Hoff on 81-42-8790FI6 [Moles/Vol]Carbon dioxide, total [Moles/volume] in Serum or Bhslqn90.0-31.0[facility] Medical CenterChloride [Moles/volume] in Serum or PlasmaOrdered By: Ralph Hoff on 88-35-0400Znizdgok [Moles/Vol]Chloride [Moles/volume] in Serum or Plasma 98-107Ch[facility] CenterComplete Blood Count Auto Diffon 50-95-9292Fwbaubzqq (Bld) [#/Vol]0.1 10*3/uLNormal0.0-0.2The [facility] Health Physician GroupComment on above:Result Comment: PERFORMED BY: [place] [address] PATHOLOGIST SENIOR SALES ASSOCIATE NOREEN ARIAS M.D.Performed By: #### CMP wRFX A1C, CBC #### [place] [address] USABasophils/100 WBC (Bld)0.7 %Normal.The Ecu Health Physician GroupComment on above:Performed By: #### CMP wRFX A1C, CBC #### [place] [address] USAEosinophils (Bld) [#/Vol]0.0 10*3/uLNormal0.0-0.45The Ecu Health Physician GroupComment on above:Performed By: #### CMP wRFX A1C, CBC #### [place] [address] USAEosinophils/100 WBC (Bld)0.1 %Normal.The [facility]cu Health Physician GroupComment on above:Performed By: #### CMP wRFX A1C, CBC #### [place] [address] USAErythrocyte distribution width (RBC) [Ratio]13.0 %Normal 11.9-15.3The [facility]cu Health Physician GroupComment on above:Performed By: #### CMP wRFX A1C, CBC #### [place] [address] USAHematocrit (Bld) [Volume fraction]36.9 %Prhums07.0-46.4The [facility] Health Physician GroupComment on above:Performed By: #### CMP wRFX A1C, CBC #### [address] [place] [address] USAHemoglobin (Bld) [Mass/Vol]12.8 g/jJCkmfrf96.8-15.4The [facility] Health Physician GroupComment on above:Performed By: #### CMP wRFX A1C, CBC #### [place] [address] USALymphocytes (Bld) [#/Vol]3.1 10*3/uLNormal1.00-4.8The [facility] Health Physician GroupComment on above:Performed By: #### CMP wRFX A1C, CBC #### [place] [address] USALymphocytes/100 WBC (Bld)31.8 %Normal.The [facility] Health Physician GroupComment on above:Performed By: #### CMP wRFX A1C, CBC #### [place] [address] USAMCH (RBC) [Entitic mass]31.1 kjJnskvr54.7-34.3The [facility]cu Health Physician GroupComment on above:Performed By: #### CMP wRFX A1C, CBC #### [place] [address] USAMCV (RBC) [Entitic vol]89.5 sDYompvo17-172Rgg [facility] Health Physician GroupComment on above:Performed By: #### CMP wRFX A1C, CBC #### [place] [address] USAMean Corpuscular HGB Conc34.8 g/rHSwsugo78.0-35.0The [facility]cu Health Physician GroupComment on above:Performed By: #### CMP wRFX A1C, CBC #### [place] [address] USAMonocytes (Bld) [#/Vol]0.5 10*3/uLNormal0.0-0.8The [facility]cu Health Physician GroupComment on above:Performed By: #### CMP wRFX A1C, CBC #### [place] [address] USAMonocytes/100 WBC (Bld)5.5 %Normal.The [facility]cu Health Physician GroupComment on above:Performed By: #### CMP wRFX A1C, CBC #### [facility] [address] [place] [address] USANeutrophils (Bld) [#/Vol]6.1 10*3/uLNormal1.8-7.7The [facility] Health Physician GroupComment on above:Performed By: #### CMP wRFX A1C, CBC #### [facility] [address] [place] [address] USANeutrophils/100 WBC (Bld)61.9 %Normal.The [facility]cu Health Physician GroupComment on above:Performed By: #### CMP wRFX A1C, CBC #### [facility] [address] [place] [address] USANRBC%0.0 /100{WBC}Normal0-0.5The [facility] Comment on above:Performed By: #### CMP wRFX A1C, CBC #### [facility] [address] [place] [address] USAPlatelet mean volume (Bld) [Entitic vol]9.0 fLNormal 6.3-10.7The [facility]cu Health Physician GroupComment on above:Performed By: #### CMP wRFX A1C, CBC #### [place] [address] USAPlatelets (Bld) [#/Vol]297 10*3/nYImjbcq497-702Iep [facility] Health Physician GroupComment on above:Performed By: #### CMP wRFX A1C, CBC #### [facility] [address] [place] [address] USARBC (Bld) [#/Vol]4.12 10*6/uLNormal3.60-5.00The [facility] Health Physician GroupComment on above:Performed By: #### CMP wRFX A1C, CBC #### [place] [address] USAWBC (Bld) [#/Vol]9.9 10*3/uLNormal3.8-11.6The [facility]cu Health Physician GroupComment on above:Performed By: #### CMP wRFX A1C, CBC #### [facility] [address] [place] [address] USACreatinine [Mass/volume] in Serum or PlasmaOrdered By: Ralph Hoff on 04-30-1710Decsxzglws [Mass/Vol]Creatinine [Mass/volume] in Serum or Plasma0.60-1.20[facility] Medical CenterECG 12 lead ECGon 12-26-2024 ECG 12 lead [facility]GCLEVEL[facility] [address] [place] [address] Electrocardiograph Report Signed Patient: Myrtle Jones MR#: [id number] : 1965 Acct:[id number] Age/Sex: 59 / F ADM Date: 12/26/24 Loc: [place] Room: Type: [facility] Attending Dr: Ralph Hoff DO Ordering Provider: [...] Otherwise normal ECG Confirmed by Domonique Hsieh ([id number]) on 12/27/2024 8:29:59 PM Referred By: Electronically Signed By: Domonique Hsieh Transcribed By: MUS Signed By Domonique Hsieh MD [address] [place] [address] Physician GroupEosinophils Auto (Bld) [#/Vol]Ordered By: Ralph Hoff on 60-37-9288Dujrmmvjpni (Bld) [#/Vol]Automated eosinophil count0.0-0.45[facility] Medical CenterEosinophils/100 WBC Auto (Bld) Ordered By: Ralph Hoff on 63-19-0190Mgedcdvivqz/100 WBC (Bld)Automated eosinophil %.[facility] Medical CenterErythrocyte distribution width Auto (RBC) [Ratio]Ordered By: Ralph Hoff on 29-72-6855Rjwjhfmibtd distribution width (RBC) [Ratio]Erythrocyte distribution width [Ratio] by Automated count 11.9-15.3FMercy HospitalGlobulin Calc (S) [Mass/Vol]Ordered By: Ralph Hoff on 62-67-6333Fmakogny (S) [Mass/Vol]Serum globulin measurement by calculation (mass/volume)[facility] CenterGlucose [Mass/volume] in Serum or PlasmaOrdered By: Ralph Hoff on 43-91-6991Yichect [Mass/Vol]Glucose [Mass/volume] in Serum or Aezxdp57-523DxrbrlwhaChillicothe Va Medical CenterHematocrit Auto (Bld) [Volume fraction]Ordered By: Ralph Hoff on 74-73-3284Wtdghfhafq (Bld) [Volume fraction]Hematocrit [Volume Fraction] of Blood by Automated count34.0-46.4FMercy HospitalHemoglobin [Mass/volume] in BloodOrdered By: Ralph Hoff on 07-24-7660Ndcaqhwuyu (Bld) [Mass/Vol]Hemoglobin [Mass/volume] in Blood11.8-15.4FMercy HospitalLeukocytes [#/volume] corrected for nucleated erythrocytes in Blood by Automated counOrdered By: Ralph Hoff on 25-16-1804SQC corrected for nucl RBC Auto (Bld) [#/Vol]Leukocytes [#/volume] corrected for nucleated erythrocytes in Blood by Automated coun3.8-11.6FMercy HospitalLymphocytes Auto (Bld) [#/Vol]Ordered By: Ralph Hoff on 17-32-6327Sjfwdpplrsp (Bld) [#/Vol] Lymphocytes [#/volume] in Blood by Automated count1.00-4.8[facility] Medical CenterLymphocytes/100 WBC Auto (Bld)Ordered By: Ralph Hoff on 75-87-5608Qchucutjhkh/100 WBC (Bld)Lymphocytes/100 leukocytes in Blood by Automated count.[facility] CenterMCH Auto (RBC) [Entitic mass] Ordered By: Ralph Hoff on 52-14-4652XQG (RBC) [Entitic mass]MCH [Entitic mass] by Automated count24.7-34.3FMercy HospitalMCHC Auto (RBC) [Mass/Vol]Ordered By: Ralph Hoff on 57-35-9528WVQN (RBC) [Mass/Vol]MCHC [Mass/volume] by Automated count32.0-35.0[facility] CenterMCV Auto (RBC) [Entitic vol]Ordered By: Ralph Hoff on 71-80-6824RYK (RBC) [Entitic vol]MCV [Entitic volume] by Automated gmhqa13-245RelcbdagaChillicothe Va Medical CenterMonocytes Auto (Bld) [#/Vol]Ordered By: Ralph Hoff on 12-26-2024 Monocytes (Bld) [#/Vol]Automated blood monocyte count0.0-0.8[facility] CenterMonocytes/100 WBC Auto (Bld)Ordered By: Ralph Hoff on 12-26-2024 Monocytes/100 WBC (Bld)Automated monocyte %.[facility] Neutrophils Auto (Bld) [#/Vol]Ordered By: Ralph Hoff on 67-55-0892Mqqpxegytjn (Bld) [#/Vol]Neutrophils [#/volume] in Blood by Automated count1.8-7.7FMercy HospitalNeutrophils/100 WBC Auto (Bld)Ordered By: Ralph Hoff on 60-25-2664Osrfdqxyiqn/100 WBC (Bld)Automated neutrophil %.[facility] CenterNo Panel InformationOrdered By: Ralph Hoff on 12-26-2024 Estimated GFR (CKD-EPI)> 60.0 mL/MinChillicothe Va Medical CenterPharmacy Creatinine Clearance (ChemN/AFMercy HospitalNucleated erythrocytes [Presence] in Blood by Automated countOrdered By: Ralph Hoff on 12-10-2373Vseqtatwa RBC Auto Ql (Bld)Nucleated erythrocytes [Presence] in Blood by Automated count0-0.5FMercy HospitalPlatelet mean volume Auto (Bld) [Entitic vol]Ordered By: Ralph Hoff on 84-16-8743Llniyjfq mean volume (Bld) [Entitic vol]Platelet mean volume [Entitic volume] in Blood by Automated count6.3-10.7FMercy HospitalPlatelets Auto (Bld) [#/Vol]Ordered By: Ralph Hoff on 67-41-4465Wshvfqvon (Bld) [#/Vol]Platelets [#/volume] in Blood by Automated ikoki117-033BabgvmuiuChillicothe Va Medical Center Potassium [Moles/volume] in Serum or PlasmaOrdered By: Ralph Hoff on 35-74-8662Jqbklucar [Moles/Vol]Potassium [Moles/volume] in Serum or Plasma 3.5-5.1FMercy HospitalProtein [Mass/volume] in Serum or Plasma Ordered By: Ralph Hoff on 81-88-4333Grlrhbc [Mass/Vol]Protein [Mass/volume] in Serum or Plasma6.4-8.9[facility] Medical CenterRBC Auto (Bld) [#/Vol] Ordered By: Ralph Hoff on 46-00-5605SWQ (Bld) [#/Vol]Erythrocytes [#/volume] in Blood by Automated count3.60-5.00[facility] Memorialerum or plasma albumin/globulin mass ratioOrdered By: Ralph Hoff on 12-26-2024 Albumin/Globulin [Mass ratio]Serum or plasma albumin/globulin mass ratio [facility] Memorialerum or plasma anion gap determinationOrdered By: Ralph Hoff on 82-66-1951Vwdqr gap [Moles/Vol]Serum or plasma anion gap determination6.0-15.0[facility] Memorialodium [Moles/volume] in Serum or PlasmaOrdered By: Ralph Hoff on 29-68-5910Fxeqrd [Moles/Vol]Sodium [Moles/volume] in Serum or Ataoju323-144FltpftgxaChillicothe Va Medical CenterUrea nitrogen [Mass/volume] in Serum or PlasmaOrdered By: Ralph Hoff on 12-26-2024 Urea nitrogen [Mass/Vol]Urea nitrogen [Mass/volume] in Serum or Plasma7-25 [facility] CenterWBC Auto (Bld) [#/Vol]Ordered By: Ralph Hoff on 61-25-5223VLR (Bld) [#/Vol]Leukocytes [#/volume] in Blood by Automated count 3.8-11.6FMercy HospitalCNPNon 69-61-4153ZEVXDabefotsq (MNOPRX) MYRTLE JONES ([id number]) 1965 F Date Time Provider Department 12/07/24 SALMA CALLEJAS During your visit today, we recorded the following information about you: Allergies As of Date: 12/07/2024 Noted Allergy Reaction TOPAMAX (TOPIRAMATE) 05/09/2018 1 - Mental Status Change Date Reviewed: 10/04/2024 Reviewed by: Simona Carlson APRN.LABOR REPRESENTATIVE - Fully Assessed Prescriptions as of 12/08/2024 [...] 11/26/2023 Encounter Status:Closed by SALMA CALLEJAS on [facility]/24[facility]Basophils Auto (Bld) [#/Vol]on 17-05-7701Aodmfcnko (Bld) [#/Vol] Automated basophil count0.0-0.1FMercy HospitalBasophils/100 WBC Auto (Bld)on 42-57-9450Jqblmzdxa/100 WBC (Bld)Automated basophil %0.2-2.0 [facility] CenterCholesterol in LDL Calc [Mass/Vol]on 10-21-2024 Cholesterol in LDL [Mass/Vol]Cholesterol in LDL [Mass/volume] in Serum or Plasma by calculationChillicothe Va Medical CenterComment on above:<100 mg/dl RGFQTSH897-231 mg/dl NEAR OR ABOVE XFXGJYK583-083 mg/dl BORDERLINE TIST871-404 mg/dl HIGH>190 mg/dl VERY HIGHCholesterol in VLDL Calc [Mass/Vol]on 10-21-2024 Cholesterol in VLDL [Mass/Vol]Cholesterol in VLDL [Mass/volume] in Serum or Plasma by calculationChillicothe Va Medical CenterEosinophils/100 WBC Auto (Bld)on 80-26-9711Pjngfmaiahg/100 WBC (Bld)Automated eosinophil %Low0.9-7.0 [facility] CenterErythrocyte distribution width Auto (RBC) [Ratio]on 97-45-7201Ltsxwyolkux distribution width (RBC) [Ratio]Erythrocyte distribution width [Ratio] by Automated count11.0-15.0[facility] CenterEstimated glomerular filtration rate (GFR) non- Americanon 41-98-7788QIW/1.73 sq M.predicted among non-blacks MDRD (S/P/Bld) [Vol rate/Area]Estimated glomerular filtration rate (GFR) non- AmericanLow>=60 mL/min/1.73m 2FMercy HospitalGlobulin Calc (S) [Mass/Vol]on 61-63-9435Ifjbxdzu (S) [Mass/Vol]Serum globulin measurement by calculation (mass/volume)[facility] CenterGlucose mean value [Mass/volume] in Blood Estimated from glycated hemoglobinon 29-18-5922Jykqzpr glucose Estimated from glycated hemoglobin (Bld) [Mass/Vol]Glucose mean value [Mass/volume] in Blood Estimated from glycated hemoglobinChillicothe Va Medical CenterHematocrit Auto (Bld) [Volume fraction]on 21-75-5071Ffswlkdtqm (Bld) [Volume fraction]Hematocrit [Volume Fraction] of Blood by Automated count 36.0-48.0[facility] CenterHemoglobin [Mass/volume] in Bloodon 66-75-9124Hyuagyltna (Bld) [Mass/Vol]Hemoglobin [Mass/volume] in Blood12.0-16.0 [facility] CenterLaboratory - Chemistry and Chemistry - challengeon 47-45-3140Cupaokx [Mass/Vol]3.9 g/dL3.4-5.0[facility] CenterALP [Catalytic activity/Vol]46 U/T32-952TyfdknirtChillicothe Va Medical CenterALT [Catalytic activity/Vol]20 U/U71-66SvgfvhpqqChillicothe Va Medical Center AST [Catalytic activity/Vol]18 U/W36-00IeebgvkwgChillicothe Va Medical Center Bilirubin [Mass/Vol]0.7 mg/dL0.2-1.0[facility] CenterCalcium [Mass/Vol]9.2 mg/dL8.5-10.1FMercy HospitalChloride [Moles/Vol] 107 mmol/W52-397KbdjhojvtChillicothe Va Medical CenterCholesterol [Mass/Vol]196 mg/dL <=200Ch[facility] CenterCholesterol in HDL [Mass/Vol]52 mg/dL40-60 [facility] CenterComment on above:> or =60 mg/dl - LOW CARDIOVASCULAR RISK<40 mg/dl - HIGH CARDIOVASCULAR RISKCO2 [Moles/Vol]29.7 mmol/L21.0-32.0[facility] Medical CenterCreatinine [Mass/Vol]1.04 mg/dL High0.55-1.02[facility] CenterGFR/1.73 sq M.predicted MDRD (S/P/Bld) [Vol rate/Area]mL/min/{1.73_m2}>=60 mL/min/1.73m 2FMercy HospitalGlucose [Mass/Vol]107 mg/qNZtxc53-721HrquncxgyChillicothe Va Medical CenterMagnesium [Mass/Vol]2.0 mg/dL1.8-2.4FMercy Hospital Potassium [Moles/Vol]4.2 mmol/L3.5-5.1FMercy HospitalProtein [Mass/Vol]7.2 g/dL6.4-8.2FNorwalk Memorial Hospitalodium [Moles/Vol]144 mmol/F239-158GhdtsvjoxChillicothe Va Medical CenterTriglyceride [Mass/Vol]149 mg/dL <=150Ch[facility] Medical CenterUrate [Mass/Vol]3.2 mg/dL2.6-6.0[facility] CenterUrea nitrogen [Mass/Vol]25.0 mg/dLHigh7.0-18.0[facility] CenterUrea nitrogen/Creatinine [Mass ratio]24.0 mg/mgChillicothe Va Medical CenterBilirubin Ql (U)NegativeNEGATIVEChillicothe Va Medical CenterGlucose (U) [Mass/Vol]NegativeNEGATIVEChillicothe Va Medical CenterKetones Ql (U)15 mg/dLAbnormalNEGATIVEChillicothe Va Medical CenterpH (U)6.0 [pH]5.0-9.0[facility] Memorialpecific gravity (U) [Rel density]1.0251.005-1.025Ch[facility] Medical CenterUrobilinogen Qn (U)0.2 {Tara'U}/dL0.2-1.0[facility] CenterLaboratory - Hematology and Cell countson [id number] (Bld) [Mass fraction]5.6 %4.5-6.2FMercy HospitalComment on above:ADA RECOMMENDED LIMIT 4.0 - 6.0ADA THERAPEUTIC TARGET < 7.0ACTION SUGGESTED> 7.0Immature granulocytes/100 WBC (Bld) 0.2 %0.0-0.5FMercy HospitalLaboratory - Specimen informationon 47-77-6458Tmfeuaaofl (U)CLEARCLEARFMercy HospitalColor (U)LT. YELLOWYELLOWChillicothe Va Medical CenterLaboratory - Urinalysison 81-13-1444Jbkbsnawx esterase Test strip Ql (U)TRACEAbnormalNEGATIVEChillicothe Va Medical CenterMucus Ql (Urine sed)NONE SEENNONE SEENChillicothe Va Medical CenterNitrite Ql (U)NegativeNEGATIVEChillicothe Va Medical Center Protein (U) [Mass/Vol]12.3 mg/dLHigh<=11.9[facility] Protein Ql (U)NegativeNEG/TRACEChillicothe Va Medical CenterLeukocytes [#/volume] corrected for nucleated erythrocytes in Blood by Automated counon 56-81-8283JPQ corrected for nucl RBC Auto (Bld) [#/Vol]Leukocytes [#/volume] corrected for nucleated erythrocytes in Blood by Automated counHigh4.0-11.0 [facility] Medical CenterLymphocytes Auto (Bld) [#/Vol]on 10-21-2024 Lymphocytes (Bld) [#/Vol]Lymphocytes [#/volume] in Blood by Automated count 1.2-3.8[facility] Medical CenterLymphocytes/100 WBC Auto (Bld)on 95-72-6830Uwxjteexraj/100 WBC (Bld)Lymphocytes/100 leukocytes in Blood by Automated count20.5-60.0[facility] CenterH Auto (RBC) [Entitic mass]on 47-61-5043XSI (RBC) [Entitic mass]MCH [Entitic mass] by Automated count 26.7-34.0[facility] CenterHC Auto (RBC) [Mass/Vol]on 65-97-3040UIAM (RBC) [Mass/Vol]MCHC [Mass/volume] by Automated count29.9-35.2 [facility] CenterV Auto (RBC) [Entitic vol]on 15-86-4257FPP (RBC) [Entitic vol]MCV [Entitic volume] by Automated count81.0-99.0[facility] CenterMonocytes Auto (Bld) [#/Vol]on 83-91-0528Cpygyzoem (Bld) [#/Vol]Automated blood monocyte count0.3-0.8[facility] Monocytes/100 WBC Auto (Bld)on 86-65-4553Lefocipkm/100 WBC (Bld)Automated monocyte %1.7-12.0[facility] CenterNeutrophils Auto (Bld) [#/Vol]on 04-77-0709Dmknaffxnoe (Bld) [#/Vol]Neutrophils [#/volume] in Blood by Automated countHigh1.4-6.5FMercy HospitalNeutrophils/100 WBC Auto (Bld)on 34-71-4960Vsstlkydmsv/100 WBC (Bld)Automated neutrophil %43.0-75.0 [facility] CenterNo Panel Informationon 766528-Siyhfxb Vitamin D Eumov750.0 ng/mLChillicothe Va Medical CenterComment on above:<20 ng/mL Vit D toxwdrxsn66-<30 ng/mL Vit D jsvfwcjyeqkh98-785 ng/mL Vit D sufficient>100 ng/mL Potential ToxicityEosinophils # (Auto)0.0 10 3/uL0.0-0.7 [facility] CenterImmature Granulocyte # (Auto)0.02 10 3/uL 0.00-0.03[facility] CenterParathyroid Hormone (Intact)22 pg/mL 15-65[facility] Medical CenterComment on above:Performed at: - [facility] [address] [id number] Director: Adam Layton PhD, Phone: [phone] Level3.5 mg/dL2.6-4.7FMercy HospitalUrine BacteriaNONE SEEN #/HPFNONE SEENChillicothe Va Medical CenterUrine Occult BloodNegativeNEGATIVEChillicothe Va Medical CenterUrine Random Mumgeuglbr916.04 mg/dL20.00-300.00[facility] CenterUrine RBCNONE SEEN #/HPF0-2FMercy HospitalUrine Squamous Epithelial CellsFEW #/LPFAbnormalNONE/RAREChillicothe Va Medical Center Urine WBC0-2 #/HPFAbnormalNONE SEENChillicothe Va Medical CenterPlatelet mean volume Auto (Bld) [Entitic vol]on 06-81-0875Sfadhalp mean volume (Bld) [Entitic vol]Platelet mean volume [Entitic volume] in Blood by Automated count 9.5-13.5FMercy HospitalPlatelets Auto (Bld) [#/Vol]on 96-49-0492Nabbpbsml (Bld) [#/Vol]Platelets [#/volume] in Blood by Automated vizbj823-391TubjyjvhtChillicothe Va Medical CenterRBC Auto (Bld) [#/Vol]on 10-21-2024 RBC (Bld) [#/Vol]Erythrocytes [#/volume] in Blood by Automated count4.20-5.40 [facility] Memorialerum or plasma albumin/globulin mass ratioon 93-57-9473Drirero/Globulin [Mass ratio]Serum or plasma albumin/globulin mass ratioKettering Health Greene Memorialerum or plasma anion gap determinationon 50-89-8922Yfrar gap [Moles/Vol]Serum or plasma anion gap determinationKettering Health Greene Memorialerum or plasma total cholesterol/high density lipoprotein (HDL) cholesterol mass blanca 87-72-3090Qyabwmdeukf.total/Cholesterol in HDL [Mass ratio]Serum or plasma total cholesterol/high density lipoprotein (HDL) cholesterol mass ratChillicothe Va Medical CenterComment on above:3.3 - 4.4 LOW RISK4.4 - 7.1 AVERAGE RISK7.1 - 11.0 MODERATE RISK>11.0 HIGH RISKUrine protein/creatinine ratioon 45-62-7362Obclart/Creatinine (U) [Ratio]Urine protein/creatinine ratioChillicothe Va Medical CenterXR shoulder LT min 2V* on 72-25-9933YO shoulder LT min 2V*[facility] [place] [facility] [address] [employer] [place] [address] XRay Report Signed Patient: Myrtle Jones MR#: [id number] : 1965 Acct:[id number] Age/Sex: 59 / F ADM Date: 10/19/24 Loc: SOXD Room: Type: [facility] Attending Dr: Ralph Hoff DO Copies [...] PROCESS. Impression dictated by: Juan Wilkerson Jr., D.OMarissa10/19/2024 10:42 AM Dictation Location: [place] [address] Transcribed By: [facility] 10/19/24 1042 Dictated By: Juan Wilkerson Jr, DO 10/19/24 1041 Signed By: 10/19/24 1042[facility] Physician GroupMR SHOULDER LEFT WO IV CONTRAST on 28-94-5243UC SHOULDER LEFT WO IV CONTRASTEXAM: MR SHOULDER LEFT WO IV CONTRAST HISTORY: Shoulder pain and decreased range of motion. TECHNIQUE: Multiplanar multisequence MRI of the shoulder was performed Without contrast. COMPARISON: None available. FINDINGS: Mild degenerative changes of the acromioclavicular joint without undersurface osteophyte formation.The acromion is curved. Coracoclavicular ligament intact. No subacromial/subdeltoid bursal fluid. Low-grade partial-thickness articular surface tearing [...] tendinosis. Mild supraspinatus tendinosis. ELECTRONICALLY SIGNED BY: Caterina Carbajal AvailableCNPNon 62-41-3733SEHRAwzeadeox (MNOPRX) MYRTLE JONES ([id number]) 1965 F Date Time Provider Department 10/11/24 JACY CUEVA [facility] During your visit today, we recorded the following information about you: Jacy Cueva 10/11/2024 11:52 AM Signed Ambulatory Pharmacy Prior Authorization Note Provider Intervention Required?: No- Pharmacy completed on your behalf. Rx Plan: Other: [facility] Drug: NURTEC ODT 75 mg disintegrating tablet Cover My Meds Palafox: Done via Epic Determination: Approved Prior Authorization/Case #: [id number] Prior Authorization Expiration: 10/10/2025 Time to PA [...] refills. Prescriptions will now be processed through [facility] for determination of next steps. For questions relating to this submission, please contact [facility] at [phone] Allergies As of Date: 10/11/2024 Noted Allergy Reaction TOPAMAX (TOPIRAMATE) 05/09/2018 1 - Mental Status Change Date Reviewed: 10/04/2024 Reviewed by: Simona Carlson APRN.LABOR REPRESENTATIVE - Fully Assessed Reason for Visit: Insurance [...] 11/26/2023 Encounter Status:Closed by JACY CUEVA on 10/11/24[facility] 60-77-2159CIDVOvmvjp Visit (VTFB) MYRTLE JONES ([id number]) 1965 F Date Time Provider Department 10/04/24 4:00 PM [facility] During your visit today, we recorded the following information about you: Pulse Blood pressure Weight Height 74/minute 130/72 70 kg 1.702 m Simona Carlson APRN.LABOR REPRESENTATIVE 10/04/2024 4:27 PM Signed Headache Center - [...] Follow-up Impression and Plan from last visit: [facility] 03/29/2024 with Me. Myrtle Jones is a [...] Nerve blocks Analgesic Butalbital/acetaminophen/caffeine (Fioricet) Hydrocodone/Acetaminophen (Vicodin, [place]) Anti-Convulsant Topiramate (Topamax, Trokendi XL, Qudexy) Anti-Depressant [...] these with the patient: Yes, Simona Carlson, GHISLAINE.LABOR REPRESENTATIVE HEADACHE SCORES: 11/22/2023 03/22/2024 10/01/2024 Headache Questions [...] sensitivity and nausea: 8 (more content not included)...NormalUniversity Hospitals Conneaut Medical CenterCNPNon 19-33-4431ZJXGZjxvavvso ([facility]OPRX) MYRTLE JONES ([id number]) 1965 F Date Time Provider Department 07/20/24 SALMA CALLEJAS [facility] During your visit today, we recorded the following information about you: Salma Callejas RN 07/20/2024 4:56 PM Signed [facility] received prescription(s) for Qulipta 60MG tablets . Benefits investigation was conducted, indicating that a prior authorization is required. PA was initiated and pending review through [facility]. All pertinent clinical information was submitted to insurance. PA done via: [facility]- Palafox [id number] Salma Callejas RN [facility] P: , F: Salma Callejas RN 07/24/2024 8:58 AM Signed Ambulatory Pharmacy Prior Authorization Note Provider Intervention Required?: No- Pharmacy completed on your behalf. Rx Plan: Other: [facility] Drug: Qulipta 60MG tablets Cover My Meds Palafox: [id number] Determination: Approved Prior Authorization/Case #: [id number] Prior Authorization Expiration: 07/20/2025 Time to PA [...] refills. Prescriptions will now be processed through [facility] for determination of next steps. For questions relating to this submission, please contact [facility] at [phone] Allergies As of Date: 07/20/2024 Noted Allergy Reaction TOPAMAX (TOPIRAMATE) 05/09/2018 1 - Mental Status Change Date Reviewed: 03/29/2024 Reviewed by: Simona Carlson APRN.LABOR REPRESENTATIVE - Fully Assessed Reason for Visit: Insurance [...] 11/26/2023 Encounter Status:Closed by SALMA CALLEJAS on 07/24/24NoKettering Health Behavioral Medical CenterBasophils Auto (Bld) [#/Vol]on 05-88-9462Gdqmvhdfe (Bld) [#/Vol]0.1 10 3/uL0.0-0.1FMercy HospitalBasophils/100 WBC Auto (Bld)on 87-89-4779Zcmxmrvtm/100 WBC (Bld)0.7 %0.2-2.0[facility] Cholesterol in LDL Calc [Mass/Vol]on 45-78-0439Medyaemrdlz in LDL [Mass/Vol]95.0 mg/dLChillicothe Va Medical CenterComment on above:<100 mg/dl PPYJTTB149- 129 mg/dl NEAR OR ABOVE ZEAXGGE458-919 mg/dl BORDERLINE LYTK595-762 mg/dl H IGH>190 mg/dl VERY HIGHCholesterol in VLDL Calc [Mass/Vol]on 06-03-2024 Cholesterol in VLDL [Mass/Vol]33.2 mg/dLChillicothe Va Medical Center Eosinophils/100 WBC Auto (Bld)on 02-34-4835Sqtsnnrrzqn/100 WBC (Bld)0.0 %Low 0.9-7.0[facility] Medical CenterErythrocyte distribution width Auto (RBC) [Ratio]on 72-91-2938Wnfcsgxocbd distribution width (RBC) [Ratio]12.2 % 11.0-15.0[facility] CenterEstimated glomerular filtration rate (GFR) non- Americanon 61-21-9219ZJE/1.73 sq M.predicted among non-blacks MDRD (S/P/Bld) [Vol rate/Area]52 mL/min/{1.73_m2}Low>=60Ch[facility] Medical CenterGlobulin Calc (S) [Mass/Vol]on 19-19-9740Njiyizjv (S) [Mass/Vol] 3.0 g/dLChillicothe Va Medical CenterGlucose mean value [Mass/volume] in Blood Estimated from glycated hemoglobinon 41-20-3236Lodrjfd glucose Estimated from glycated hemoglobin (Bld) [Mass/Vol]103 mg/dLChillicothe Va Medical CenterHematocrit Auto (Bld) [Volume fraction]on 23-15-4707Waxujeaobg (Bld) [Volume fraction]36.6 %36.0-48.0[facility] Medical CenterHemoglobin [Mass/volume] in Bloodon 53-55-5450Wqplybsdpu (Bld) [Mass/Vol]12.5 g/dL12.0-16.0 [facility] CenterLaboratory - Chemistry and Chemistry - challengeon 99-72-4076Mqjbpqy [Mass/Vol]3.5 g/dL3.4-5.0[facility] CenterALP [Catalytic activity/Vol]52 U/M03-601HiboghruqChillicothe Va Medical CenterALT [Catalytic activity/Vol]17 U/J83-72XjibfknddChillicothe Va Medical Center AST [Catalytic activity/Vol]9 U/SHyl61-68FxinjuehlChillicothe Va Medical Center Bilirubin [Mass/Vol]0.6 mg/dL0.2-1.0[facility] CenterCalcium [Mass/Vol]8.9 mg/dL8.5-10.1FMercy HospitalChloride [Moles/Vol] 107 mmol/I51-027QwuvkdqstChillicothe Va Medical CenterCholesterol [Mass/Vol]172 mg/dL <=200Ch[facility] Medical CenterCholesterol in HDL [Mass/Vol]44 mg/dL40-60 [facility] CenterComment on above:> or =60 mg/dl - LOW CARDIOVASCULAR RISK<40 mg/dl - HIGH CARDIOVASCULAR RISKCO2 [Moles/Vol]26.6 mmol/L21.0-32.0[facility] CenterCreatinine [Mass/Vol]1.09 mg/dL High0.55-1.02Ch[facility] Va Medical CenterGFR/1.73 sq M.predicted MDRD (S/P/Bld) [Vol rate/Area]mL/min/{1.73_m2}>=60[facility] Glucose [Mass/Vol]105 mg/rI10-431QwqkzkgyvChillicothe Va Medical CenterPotassium [Moles/Vol]3.9 mmol/L3.5-5.1FMercy HospitalProtein [Mass/Vol] 6.5 g/dL6.4-8.2FNorwalk Memorial Hospitalodium [Moles/Vol]143 mmol/L 136-145Ch[facility] Medical CenterTriglyceride [Mass/Vol]166 mg/dLHigh <=150Ch[facility] Medical CenterTSH Qn1.566 m[IU]/L0.358-3.740[facility] Medical CenterUrea nitrogen [Mass/Vol]21.0 mg/dLHigh7.0-18.0[facility] CenterUrea nitrogen/Creatinine [Mass ratio]19.3 mg/mgChillicothe Va Medical CenterLaboratory - Hematology and Cell countson 68-69-1073HxM9g (Bld) [Mass fraction]5.2 %4.5-6.2FMercy HospitalComment on above:ADA RECOMMENDED LIMIT 4.0 - 6.0ADA THERAPEUTIC TARGET < 7.0ACTION SUGGESTED> 7.0Immature granulocytes/100 WBC (Bld)0.1 %0.0-0.5FMercy HospitalLeukocytes [#/volume] corrected for nucleated erythrocytes in Blood by Automated counon 95-01-7353HCW corrected for nucl RBC Auto (Bld) [#/Vol]7.0 10 3/uL4.0-11.0[facility] Medical CenterLymphocytes Auto (Bld) [#/Vol]on 10-90-8545Qbrhephxznd (Bld) [#/Vol]2.3 10 3/uL1.2-3.8[facility] Medical CenterLymphocytes/100 WBC Auto (Bld)on 06-03-2024 Lymphocytes/100 WBC (Bld)33.5 %20.5-60.0[facility] CenterH Auto (RBC) [Entitic mass]on 44-61-7037VBI (RBC) [Entitic mass]30.7 pg26.7-34.0 [facility] Medical CenterMCHC Auto (RBC) [Mass/Vol]on 86-01-7734XLYH (RBC) [Mass/Vol]34.2 g/dL29.9-35.2FMercy HospitalMCV Auto (RBC) [Entitic vol]on 83-57-1778VBV (RBC) [Entitic vol]89.9 fL81.0-99.0[facility] CenterMonocytes Auto (Bld) [#/Vol]on 96-52-6754Jjsqkzedf (Bld) [#/Vol]0.5 10 3/uL0.3-0.8[facility] CenterMonocytes/100 WBC Auto (Bld)on 97-35-3747Uanusrbbu/100 WBC (Bld)7.3 %1.7-12.0[facility] Medical CenterNeutrophils Auto (Bld) [#/Vol]on 86-77-5443Lixawxwsxgg (Bld) [#/Vol]4.1 10 3/uL1.4-6.5FMercy HospitalNeutrophils/100 WBC Auto (Bld)on 91-36-7387Ayqqapzmsvr/100 WBC (Bld)58.4 %43.0-75.0[facility] CenterNo Panel Informationon 18-05-3010Lbrmrdxlzaw # (Auto)0.0 10 3/uL0.0-0.7FMercy HospitalImmature Granulocyte # (Auto)0.01 10 3/uL0.00-0.03[facility] Medical CenterPlatelet mean volume Auto (Bld) [Entitic vol]on 73-41-3935Qtbuuuok mean volume (Bld) [Entitic vol]10.3 fL 9.5-13.5FMercy HospitalPlatelets Auto (Bld) [#/Vol]on 94-10-4786Gfznxwyut (Bld) [#/Vol]266 10 3/yU448-162GvpwjomsfChillicothe Va Medical CenterRBC Auto (Bld) [#/Vol]on 00-92-9951UXX (Bld) [#/Vol]4.07 10 6/uLLow 4.20-5.40[facility] Greene Memorialerum or plasma albumin/globulin mass ratioon 24-95-9152Opsqhjh/Globulin [Mass ratio]1.2 {ratio}[facility] Memorialerum or plasma anion gap determinationon 08-19-8370Qjogv gap [Moles/Vol]13.3 mmol/LFNorwalk Memorial Hospitalerum or plasma total cholesterol/high density lipoprotein (HDL) cholesterol mass blanca 06-03-2024 Cholesterol.total/Cholesterol in HDL [Mass ratio]3.9 {ratio}[facility] Medical CenterComment on above:3.3 - 4.4 LOW RISK4.4 - 7.1 AVERAGE RISK7.1 - 11.0 MODERATE RISK>11.0 HIGH RISKALLIED HEALTHon 89-11-8037HESWHY Nalace CorporationWALTHAM HOSPITAL ID: [id number] Author: ELO DUNAWAY fish cutting machine operator Service: Radiology Author Type: Graphic Design Teacher Type: Allied Health Filed: 03/03/2024 12:43 Note [...] PATIENT PRESENTS WITH AN IMPLANTABLE OR ATTACHED ADMITTING COORDINATOR: No RADIOLOGY DEPARTMENT: MR; Exam(s) Completed: Head: Routine Brain [place] MRA PERIPHERAL IV DATA: Not applicable SIGNED BY: Elo Dunaway, fish cutting machine operator March 03, 2024 12:42 PMNPappas Rehabilitation Hospital for ChildrenMR Brain WO contraston 03-03-2024* * *Final Report* * * DATE OF EXAM: Mar 03 2024 12:57PM [facility]Car[facility] 0294 - MRI BRAIN WO IVCON / PROCEDURE REASON: multiple diagnoses * * * * Physician Interpretation * * * * EXAMINATION: MRA BRAIN WO IVCON, MRI BRAIN WO IVCON CLINICAL HISTORY: [place] headache Dissection of vertebral artery (HCC) TECHNIQUE: Routine noncontrast MRI brain protocol including diffusion and gradient echo images. Intracranial 3D yprk-pg-ugmqgr MRA with post-processing performed at the modality [...] PICA, normal variant. Basilar artery is patent. apple checker are patent without high-grade luminal narrowing. MESA RADIOLOGYProvider, [facility] [place] - 03/03/2024 * * *Final Report* * [...] diffusion and gradient echo images. Intracranial 3D temu-cn-hgwvoc MRA with post-processing performed at the modality [...] PICA, normal variant. Basilar artery is patent. apple checker are patent without high-grade luminal narrowing. IMPRESSION IMPRESSION: No acute intracranial abnormality including no evidence of an acute or recent brain parenchymal infarct. Patent intracranial cerebral arterial circulation by MRA. Resident Caregiver: ELEAZAR Transcribe Date/Time: Mar 03 2024 1:06P Dictated by : ROSANA SANCHEZ, DO This examination was interpreted and the report reviewed and electronically signed by: ROSANA SANCHEZ DO on Mar 03 2024 1:11PM EST [facility] CenterMRA BRAIN WO IVCONon 69-00-7333AYY BRAIN WO IVCON* * *Final Report* * * DATE OF EXAM: Mar 03 2024 12:57PM [facility] 0272 - MRA BRAIN WO IVCON / PROCEDURE REASON: multiple diagnoses * * * * Physician Interpretation * * * * EXAMINATION: MRA BRAIN WO IVCON, MRI BRAIN WO IVCON CLINICAL HISTORY: [place] headache Dissection of vertebral artery (HCC) TECHNIQUE: Routine noncontrast MRI brain protocol including diffusion and gradient echo images. Intracranial 3D rvjx-qk-jedpha MRA with post-processing performed at the modality [...] PICA, normal variant. Basilar artery is patent. apple checker are patent without high-grade luminal narrowing. IMPRESSION: No acute intracranial abnormality including no evidence of an acute or recent brain parenchymal infarct. Patent intracranial cerebral arterial circulation by MRA. Resident Caregiver: ELEAZAR Transcribe Date/Time: Mar 03 2024 1:06P Dictated by : ROSANA SANCHEZ DO This examination was interpreted and the report reviewed and electronically signed by: ROSANA SANCHEZ DO on Mar 03 2024 1:11PM EST [id number] Auburn Hospital Head vessels WO contraston 03-03-2024* * *Final Report* * * DATE OF EXAM: Mar 03 2024 12:57PM [facility] 0272 - MRA BRAIN WO IVCON / PROCEDURE REASON: multiple diagnoses * * * * Physician Interpretation * * * * EXAMINATION: MRA BRAIN WO IVCON, MRI BRAIN WO IVCON CLINICAL HISTORY: [place] headache Dissection of vertebral artery (HCC) TECHNIQUE: Routine noncontrast MRI brain protocol including diffusion and gradient echo images. Intracranial 3D mewy-ta-lpukuz MRA with post-processing performed at the modality [...] PICA, normal variant. Basilar artery is patent. apple checker are patent without high-grade luminal narrowing. MESA RADIOLOGYProvider, [facility] [place] - 03/03/2024 * * *Final Report* * * DATE OF EXAM: Mar 03 2024 12:57PM [facility] 0272 - MRA BRAIN WO IVCON / PROCEDURE REASON: multiple diagnoses * * * * Physician Interpretation * * * * EXAMINATION: MRA BRAIN WO IVCON, MRI BRAIN WO IVCON CLINICAL HISTORY: [place] headache Dissection of vertebral artery (HCC) TECHNIQUE: Routine noncontrast MRI brain protocol including diffusion and gradient echo images. Intracranial 3D mnsv-zc-sdhbiz MRA with post-processing performed at the modality [...] PICA, normal variant. Basilar artery is patent. apple checker are patent without high-grade luminal narrowing. IMPRESSION IMPRESSION: No acute intracranial abnormality including no evidence of an acute or recent brain parenchymal infarct. Patent intracranial cerebral arterial circulation by MRA. Resident Caregiver: PSCB Transcribe Date/Time: Mar 03 2024 1:06P Dictated by : ROSANA SANCHEZ DO This examination was interpreted and the report reviewed and electronically signed by: ROSANA SANCHEZ DO on Mar 03 2024 1:11PM [facility] CenterMRI BRAIN WO IVCONon 70-46-5248WOI BRAIN WO IVCON* * *Final Report* * * DATE OF EXAM: Mar 03 2024 12:57PM [facility] 0294 - MRI BRAIN WO IVCON / PROCEDURE REASON: multiple diagnoses * * * * Physician Interpretation * * * * EXAMINATION: MRA BRAIN WO IVCON, MRI BRAIN WO IVCON CLINICAL HISTORY: [place] headache Dissection of vertebral artery (HCC) TECHNIQUE: Routine noncontrast MRI brain protocol including diffusion and gradient echo images. Intracranial 3D ucoc-fu-sirsqw MRA with post-processing performed at the modality [...] PICA, normal variant. Basilar artery is patent. apple checker are patent without high-grade luminal narrowing. IMPRESSION: No acute intracranial abnormality including no evidence of an acute or recent brain parenchymal infarct. Patent intracranial cerebral arterial circulation by MRA. Resident Caregiver: [facility] COUNTYPayton Transcribe Date/Time: Mar 03 2024 1:06P Dictated by : ROSANA SANCHEZ DO This examination was interpreted and the report reviewed and electronically signed by: ROSANA SANCHEZ DO on Mar 03 2024 1:11PM EST [id number] University Medical Center [facility] Panel Informationon 03-03-2024 IMPRESSION: No acute intracranial abnormality including no evidence of an acute or recent brain parenchymal infarct. Patent intracranial cerebral arterial circulation by MRA. Resident Caregiver: [facility] Transcribe Date/Time: Mar 03 2024 1:06P Dictated by : ROSANA SANCHEZ DO This examination was interpreted and the report reviewed and electronically signed by: ROSANA SANCHEZ DO on Mar 03 2024 1:11PM [facility] RADIOLOGYRadiology Study observation (narrative)[facility] Panel InformationOrdered By: Ccf Provider on 46-31-9599Hmsfnlvyr ClinicCNPNon 78-32-7202VHJLYarxvaisg (RGFV) MYRTLE JONES ([id number]) 1965 F Date Time Provider Department 03/02/24 [...] 11/26/2023 Encounter Status:Closed by DEB JERNIGAN on 03/02/24[facility] INTACTon 17-42-6985JUS, Raafyt37 pg/gZRcuwtk76-52HqdSt. Rita'S HospitalComment on above:Performed By: #### PTHINT #### [facility] [address] [place] [address] Dr. Angus HernandezHEMOGLOBIN AND HEMATOCRITon 77-85-6894Evlciofglj (Bld) [Volume fraction]37.2 %Wchrit87.0-48.0The [facility] HospitalComment on above:Performed By: #### HGBHCT #### [facility] [address] [place] [address] Dr. Angus HernandezHemoglobin (Bld) [Mass/Vol]12.9 g/iUZfwatc83.0-16.0[facility] HospitalComment on above:Performed By: #### HGBHCT #### [facility] [address] [place] [address] Dr. Angus HernandezHEMOGRAM AND PLATELon 26-40-1069Usycrylwzx (Bld) [Volume fraction]37.2 %Wxwhjy06.0-48.0The [facility] HospitalComment on above:Performed By: #### PTHINT #### [facility] [address] [place] [address] Dr. Angus HernandezHemoglobin (Bld) [Mass/Vol]12.9 g/lUYpwbfc63.0-16.0[facility] on above:Performed By: #### PTHINT #### [facility] [address] [place] [address] Dr. Angus CadenaH (RBC) [Entitic mass]29.6 ixEvbjmc10.7-34.0[facility] on above:Performed By: #### PTHINT #### [facility] [address] [place] [address] Dr. Angus HernandezMCHC (RBC) [Mass/Vol]32.2 g/eOTjwzih36.9-35.2The [facility] HospitalComment on above:Performed By: #### PTHINT #### [facility] [address] [place] [address] Dr. Angus HernandezMCV (RBC) [Entitic vol]91.7 sCRbzthu39.0-99.0The [facility] HospitalComment on above:Performed By: #### PTHINT #### [facility] [address] [place] [address] Dr. Angus HernandezPLT294 103/dvGjgaia973-143Rqn [facility] HospitalComment on above: Performed By: #### PTHINT #### [facility] [address] [place] [address] Dr. Angus HernandezRBC4.33 106/ulNormal4.20-5.40The [facility] HospitalComment on above:Performed By: #### PTHINT #### [facility] [address] [place] [address] Dr. Angus HernandezWBC6.8 103/ulNormal4.0-11.0The [facility] HospitalComment on above: Performed By: #### PTHINT #### [facility] [address] [place] [address] Dr. Angus HernandezMAGNESIUMon 53-41-1839Mwuwpnxcb [Mass/Vol]1.6 mg/dLCritically low 1.8-2.4The [facility] HospitalComment on above:Performed By: #### HH #### [facility] [address] [place] [address] Dr. Angus Guadalupe FUNCTION PANELon [id number] [Mass/Vol]3.9 g/dLNormal 3.4-5.0The [facility] HospitalComment on above:Performed By: #### HH #### [facility] [address] [place] [address] Dr. Angus HernandezCalcium [Mass/Vol]8.9 mg/dLNormal8.5-10.1The [facility] Comment on above:Performed By: #### HH #### [facility] [address] [place] [address] Dr. Angus HernandezChloride [Moles/Vol]110 mmol/LCritically dlag18-407Bjj [facility] HospitalComment on above:Performed By: #### HH #### [facility] [address] [place] [address] Dr. Angus HernandezCO2 [Moles/Vol]24.1 mmol/QAmlswy50.0-32.0The [facility] Comment on above:Performed By: #### HH #### [facility] [address] [address] [address] Angus HrenandezCreatinine [Mass/Vol]1.16 mg/dLCritically high0.55-1.02The [facility] HospitalComment on above:Performed By: #### HH #### [facility] [address] [address] [address] Greco ChangEGFR-AF NPUALFSD98 mL/min/1.13b3Kmovdcfulr low>=60The [facility] HospitalComment on above:Performed By: #### HH #### [facility] [address] [place] [address] Dr. Angus RustGFR-NON AF EKQGASDP35 mL/min/1.17a7Xnlkfsuvan low>=60The [facility] HospitalComment on above:Performed By: #### HH #### [facility] [address] [place] [address] Dr. Angus HernandezGlucose [Mass/Vol]108 mg/dLCritically owfm34-968Hos [facility] HospitalComment on above:Performed By: #### HH #### [facility] [address] [place] [address] Dr. Angus HernandezPhosphate [Mass/Vol]3.4 mg/dLNormal2.6-4.7The [facility] Comment on above:Performed By: #### HH #### [facility] [address] [place] [address] Dr. Angus HernandezPotassium [Moles/Vol]4.4 mmol/LNormal3.5-5.1The [facility] Comment on above:Performed By: #### HH #### [facility] [address] [place] [address] Dr. Angus HernandezSodium [Moles/Vol]146 mmol/LCritically apoz750-838Ola [facility] HospitalComment on above:Performed By: #### HH #### [facility] [address] [address] [address] Angus Dailey nitrogen [Mass/Vol]17.0 mg/dLNormal7.0-18.0The [facility] HospitalComment on above:Performed By: #### HH #### [facility] [address] [place] [address] Dr. Angus Sylvester RANDOM W/MICROSCOPICon [id number] SEENNormalNONE SEENSt. Rita'S HospitalComment on above:Performed By: #### UAMIC #### [facility] [address] [place] [address] Dr. Angus HernandezBilirubin Ql (U)NegativeNormalNEGATIVEJoint Township District [facility] Hospital on above:Performed By: #### UAMIC #### [facility] [address] [place] [address] Dr. Angus HernandezCASTNONE SEENNormalNONE SEENSt. Rita'S HospitalComment on above:Performed By: #### UAMIC #### [facility] [address] [place] [address] Dr. Angus HernandezClarity (U)CLEARNormalCLEARThe [facility] HospitalComment on above: Performed By: #### UAMIC #### [facility] [address] [place] [address] Dr. Angus Lei (U)LT. YELLOWNormalYACMC Healthcare SystemComment on above:Performed By: #### UAMIC #### [facility] [address] [place] [address] Dr. Angus HernandezCrystals LM Nom (Urine sed)NONE SEENNormalNONE SEENSt. Rita'S HospitalComment on above:Performed By: #### UAMIC #### [facility] [address] [place] [address] Dr. Greco ChangEpithelial cells LM Ql (Urine sed)FEWAbnormalNONE SEEN /RAREThe [facility] HospitalComment on above:Performed By: #### UAMIC #### [facility] [address] [place] [address] Dr. Angus HernnadezGlucose Ql (U)NegativeNormalNEGATIVERegency Hospital Cleveland West HospitalComment on above:Performed By: #### UAMIC #### [facility] [address] [address] [address] Angus HernandezHemoglobin Ql (U)NegativeNormalNEGATIVEThe [facility] on above:Performed By: #### UAMIC #### [facility] [address] [address] [address] Angus HernandezKetones Ql (U)NegativeNormalNEGATIVERegency Hospital Cleveland West HospitalComment on above:Performed By: #### UAMIC #### [facility] [address] [address] [address] Angus HernandezLEUKOCYTESNegativeNormalNEGATIVEThe [facility] HospitalComment on above:Performed By: #### UAMIC #### [facility] [address] [place] [address] Dr. Angus HernandezMUCOUSMODERATEAbnormalNONE SEENSt. Rita'S HospitalComment on above:Performed By: #### UAMIC #### [facility] [address] [place] [address] Dr. Angus eHrnandezNitrite Ql (U)NegativeNormalNEGATIVESt. Rita'S HospitalComment on above:Performed By: #### UAMIC #### [facility] [address] [place] [address] Dr. Angus HernandezpH (U)5.5 [pH]Normal5-9The [facility] HospitalComment on above: Performed By: #### UAMIC #### [facility] [address] [place] [address] Dr. Angus HernandezRBCNONE SEENAbnormal0-2The [facility] HospitalComment on above: Performed By: #### UAMIC #### [facility] [address] [place] [address] Dr. Angus HernandezSPEC GRAVITY1.975Qtmtzk1.005-<=1.025The [facility] HospitalComment on above:Performed By: #### UAMIC #### [facility] [address] [place] [address] Dr. Yilan ChangUA PROTEINNegativeNormalNEGATIVE/ TRACEThe [facility] Comment on above:Performed By: #### UAMIC #### [facility] [address] [place] [address] Dr. Angus Mendiola Qn (U)0.2 {Tara'U}/dLNormal0.2 - 1.0The [facility] HospitalComment on above:Performed By: #### UAMIC #### [facility] [address] [place] [address] Dr. Angus HernandezWBCNONAspen SEENNormalNONE SEENSt. Rita'S HospitalComment on above: Performed By: #### UAMIC #### [facility] [address] [place] [address] Dr. Angus Law ACID SERUMon [id number] [Mass/Vol]4.7 mg/dLNormal 2.6-6.0The [facility] HospitalComment on above:Performed By: #### HH #### [facility] [address] [place] [address] Dr. Angus Junior T PROTEIN CREAT RATIOon [id number] (U) [Mass/Vol] 10.4 mg/dLNormal<=12.0The [facility] HospitalComment on above:Performed By: #### HGBHCT #### [facility] [address] [place] [address] Dr. Angus Maxwell PROT CREAT RAT0.08NormalThe [facility] HospitalComment on above: Performed By: #### HGBHCT #### [facility] [address] [place] [address] Dr. Angus Junior NQUMS247.12 mg/kZGdukqc88.00-300.00The [facility] Comment on above:Performed By: #### HGBHCT #### [facility] [address] [place] [address] Dr. Angus Reyes D 25 OHon 01-29-5109TJB D 25-OH115.2 ng/mLNormalThe [facility] HospitalComment on above:Performed By: #### HGBHCT #### [facility] [address] [place], [place] [address] [facility] HospitalComment on above: Result Comment: <20 ng/mL Vit D deficient 20 - <30 ng/mL Vit D insufficient 30 - 100 ng/mL Vit D sufficient >100 ng/mL Potential ToxicityPerformed By: #### HGBHCT #### [facility] [address] [address] [address] Angus Hernandez Cervical spine WO contraston [id number]: Postoperative and spondylotic changes without high-grade bony canal or foraminal compromise, as detailed. Anatomic Variant: None. Assume 7 cervical vertebrae with counting from the craniocervical junction. Resident Caregiver: PSCPayton Transcribe Date/Time: Nov 16 2022 11:21A Dictated by : ROSANA FUNK MD This examination was interpreted and the report reviewed and electronically signed by: ROSANA FUNK MD on Nov 16 2022 11:31AM [facility]* * *Final Report* * * DATE OF EXAM: Nov 16 2022 11:16AM [facility] 0297 - MRI CERVICAL SPINE [...] thoracic spine to the level of T3-4. [facility] RADIOLOGYProvider, [facility] [place] - 11/16/2022 * * *Final Report* * [...] vertebrae with counting from the craniocervical junction. Resident Caregiver: PSCB Transcribe Date/Time: Nov 16 2022 11:21A Dictated by : ROSANA FUNK MD This examination was interpreted and the report reviewed and electronically signed by: ROSANA FUNK MD on Nov 16 2022 11:31AM EST [facility] CenterRad[facility] Study observation (narrative)[facility] Cervical spine WO contrastOrdered By: [facility] Provider on [id number] CBC AUTO DIFFon [id number] #0.0 103/ulNormal0.0-0.1The [facility] Comment on above:Performed By: #### HGBHCT #### [facility] [address] [place] [address] Dr. Angus HernandezBasophils/100 WBC (Bld)0.5 %Normal0.2-2.0[facility] Comment on above:Performed By: #### HGBHCT #### [facility] [address] [address] [address] Angus Guzman #0.0 103/ulNormal0.0-0.7The [facility] HospitalComment on above: Performed By: #### HGBHCT #### [facility] [address] [address] [address] Angus Rustosinophils/100 WBC (Bld)0.0 %Critically low0.9-7.0The [facility] HospitalComment on above:Performed By: #### HGBHCT #### [facility] [address] [place] [address] Dr. Angus Rustrythrocyte distribution width (RBC) [Ratio]12.7 %Recrzg33.0-15.0 The [facility] HospitalComment on above:Performed By: #### HGBHCT #### [facility] [address] [place] [address] Dr. Angus HernandezHematocrit (Bld) [Volume fraction]38.1 %Eqcvgd04.0-48.0The [facility] HospitalComment on above:Performed By: #### HGBHCT #### [facility] [address] [place] [address] Dr. Angus HernandezHemoglobin (Bld) [Mass/Vol]13.1 g/gXKdqkqg67.0-16.0The [facility] HospitalComment on above:Performed By: #### HGBHCT #### [facility] [address] [place] [address] Dr. Angus HernandezIG #0.02 10e3/ulNormal0.00-0.03The [facility] HospitalComment on above:Performed By: #### HGBHCT #### [facility] [address] [place] [address] Dr. Angus Mckenzie %0.3 %Normal0.0-0.5The [facility] HospitalComment on above: Performed By: #### HGBHCT #### [facility] [address] [place] [address] Dr. Angus ValladaresMPH #2.8 103/ulNormal1.2-3.8The [facility] HospitalComment on above:Performed By: #### HGBHCT #### [facility] [address] [place] [address] Dr. Angus Valladaresmphocytes/100 WBC (Bld)36.3 %Sxtbua29.5-60.0The [facility] HospitalComformerly [facility] on above:Performed By: #### HGBHCT #### [facility] [address] [place] [address] Dr. Angus HernandezMANUAL DIFF REQNONormalThe [facility] HospitalComment on above: Performed By: #### HGBHCT #### [facility] [address] [place] [address] Dr. Angus Cadena (RBC) [Entitic mass]29.4 teEbtque58.7-34.0The [facility] HospitalComment on above:Performed By: #### HGBHCT #### [facility] [address] [place] [address] Dr. Angus Cadena (RBC) [Mass/Vol]34.4 g/nQKxjpjo91.9-35.2The Still[facility] HospitalComment on above:Performed By: #### HGBHCT #### [facility] [address] [place] [address] Dr. Angus Cadena (RBC) [Entitic vol]85.6 jFMlerep75.0-99.0The [facility] HospitalComment on above:Performed By: #### HGBHCT #### [facility] [address] [place] [address] Dr. Angus Carrillo #0.5 103/ulNormal0.3-0.8The [facility] HospitalComment on above:Performed By: #### HGBHCT #### [facility] [address] [place] [address] Dr. Angus Wilsonocytes/100 WBC (Bld)7.1 %Normal1.7-12.0The [facility] Comment on above:Performed By: #### HGBHCT #### [facility] [address] [place] [address] Dr. Angus Carrizales #4.3 103/ulNormal1.4-6.5The [facility] HospitalComment on above:Performed By: #### HGBHCT #### [facility] [address] [place] [address] Dr. Angus Torresutrophils/100 WBC (Bld)55.8 %Muhdqs45.0-75.0The [facility] HospitalComment on above:Performed By: #### HGBHCT #### [facility] [address] [place] [address] Dr. Angus Hernandezlet mean volume (Bld) [Entitic vol]10.4 fLNormal9.5-13.5The [facility] HospitalComment on above:Performed By: #### HGBHCT #### [facility] [address] [place] [address] Dr. Angus HernandezPLT295 103/jdWzfcla857-007Ruo [facility] HospitalComformerly [facility] on above: Performed By: #### HGBHCT #### [facility] [address] [place] [address] Dr. Angus HernandezRBC4.45 106/ulNormal4.20-5.40The [facility] HospitalComformerly [facility] on above:Performed By: #### HGBHCT #### [facility] [address] [place] [address] Dr. Angus HernandezWBC7.6 103/ulNormal4.0-11.0The [facility] HospitalComformerly [facility] on above: Performed By: #### HGBHCT #### [facility] [address] [place] [address] Dr. Angus HernandezGLYCOHEMOGLOBIN A1Con [id number] RECOMMENDATIONSEE BELOWOur Lady Of Mercy Hospital - AndersonComformerly [facility] on above:Result Comment: ADA RECOMMENDED LIMIT 4.0 - 6.0 ADA THERAPEUTIC TARGET < 7.0 ACTION SUGGESTED > 7.0Performed By: #### PTHINT #### [facility] [address] [place] [address] Dr. Angus HernandezGlucose [Mass/Vol]103 mg/dLNoLima City HospitalComformerly [facility] on above:Performed By: #### PTHINT #### [facility] [address] [place] [address] Dr. Angus HernandezHbA1c (Bld) [Mass fraction]5.2 %Normal4.5-6.2The [facility] on above:Performed By: #### PTHINT #### [facility] [address] [place] [address] Dr. Angus HernandezLIPID PROFILEon [id number]-HDL RATIO NORMSEE St. [facility] HospitalComformerly [facility] on above:Result Comment: 3.3 - 4.4 LOW RISK 4.4 - 7.1 AVERAGE RISK 7.1 - 11.0 MODERATE RISK >11.0 HIGH RISKPerformed By: #### PTHINT #### [facility] [address] [place] [address] Dr. Angus HernandezCholesterol [Mass/Vol]195 mg/dLNormal<=200[facility] Comment on above:Performed By: #### PTHINT #### [facility] [address] [place] [address] Dr. Angus HernandezCholesterol in HDL [Mass/Vol]42 mg/uPHpwsxx88-15SleSt. Rita'S HospitalComment on above:Performed By: #### PTHINT #### [facility] [address] [place] [address] Dr. Angus HernandezCholesterol in LDL [Mass/Vol]107.0 mg/dLMercy Health Fairfield HospitalComment on above:Performed By: #### PTHINT #### [facility] [address] [place] [address] Dr. Angus Burlesonesterjoshua.total/Cholesterol in HDL [Mass ratio]4.6 {ratio} NormalSt. Rita'S HospitalComment on above:Performed By: #### PTHINT #### [facility] [address] [place] [address] Dr. Angus HernandezHDL NORMAL> or = 60 mg/dl - LOW CARDIOVASCULAR RISK <40 mg/dl - HIGH CARDIOVASCULAR RISKMercy Health Fairfield HospitalComment on above:Performed By: #### PTHINT #### [facility] [address] [place] [address] Dr. Angus HernandezLDL CALC NORMALSEE BELOWNoLima City HospitalComment on above:Result Comment: <100 mg/dl OPTIMAL 100 - 129 mg/dl NEAR OR ABOVE OPTIMAL 130 - 159 mg/dl BORDERLINE HIGH 160 - 189 mg/dl HIGH >190 mg/dl VERY HIGH Performed By: #### PTHINT #### [facility] [address] [place] [address] Dr. Angus HernandezTriglyceride [Mass/Vol]230 mg/dLCritically high<=150The [facility] HospitalComment on above:Performed By: #### PTHINT #### [facility] [address] [address] [address] Angus HernandezVLDL CALC46.0 mg/dLNormalThe [facility] HospitalComment on above: Performed By: #### PTHINT #### [facility] [address] [address] [address] Angus HernandezPROF 14(COMP METB)on [id number] [Mass/Vol]3.9 g/dLNormal 3.4-5.0The [facility] HospitalComment on above:Performed By: #### PTHINT #### [facility] [address] [address] [address] Angus HernandezAlbumin/Globulin [Mass ratio]1.1 {ratio}NormalThe [facility] HospitalComment on above:Performed By: #### PTHINT #### [facility] [address] [place] [address] Dr. Angus HuitronP [Catalytic activity/Vol]58 U/SGfwtqh44-123Jlj [facility] HospitalComment on above:Performed By: #### PTHINT #### [facility] [address] [address] [address] Angus Ballard [Catalytic activity/Vol]14 U/VDkhrwa49-94Tpx [facility] HospitalComment on above:Performed By: #### PTHINT #### [facility] [address] [address] [address] Angus Burciaga gap [Moles/Vol]11.3 mmol/LNormalThe [facility] Comment on above:Performed By: #### PTHINT #### [facility] [address] [place] [address] Dr. Angus Durant [Catalytic activity/Vol]20 U/HTmkggn61-71Hch [facility] HospitalComformerly [facility] on above:Performed By: #### PTHINT #### [facility] [address] [place] [address] Dr. Angus HernandezBilirubin [Mass/Vol]0.7 mg/dLNormal0.2-1.0The [facility] Comment on above:Performed By: #### PTHINT #### [facility] [address] [address] [address] Angus HernandezCalcium [Mass/Vol]9.2 mg/dLNormal8.5-10.1The [facility] Comment on above:Performed By: #### PTHINT #### [facility] [address] [address] [address] Angus HernandezChloride [Moles/Vol]106 mmol/ZFkfvnp47-100Iwb [facility] Comment on above:Performed By: #### PTHINT #### [facility] [address] [address] [address] Angus HernandezCO2 [Moles/Vol]28.8 mmol/ZIokqgy49.0-32.0The [facility] Comment on above:Performed By: #### PTHINT #### [facility] [address] [address] [address] Angus HernandezCreatinine [Mass/Vol]1.15 mg/dLCritically high0.55-1.02St. [facility]'S HospitalComment on above:Performed By: #### PTHINT #### [facility] [address] [address] [address] Angus RustGFR-AF OFHIMMKC93 mL/min/1.79c7Aecuvfeopq low>=60The [facility] HospitalComment on above:Performed By: #### PTHINT #### [facility] [address] [address] [address] Angus RustGFR-NON AF TYOREKAV00 mL/min/1.44v6Norqrexpyo low>=60The [facility] HospitalComment on above:Performed By: #### PTHINT #### [facility] [address] [address] [address] Angus HernandezGlobulin (S) [Mass/Vol]3.4 g/dLNormalThe [facility] [facility]uffton HospitalComment on above:Performed By: #### PTHINT #### [facility] [address] [address] [address] Angus HernandezGlucose [Mass/Vol]112 mg/dLCritically fyvp62-893Cdj Katherine HospitalComment on above:Performed By: #### PTHINT #### [facility] [address] [place] [address] Dr. Angus HernandezPotassium [Moles/Vol]4.1 mmol/LNormal3.5-5.1The [facility] Comment on above:Performed By: #### PTHINT #### [facility] [address] [place] [address] Dr. Angus HernandezProtein [Mass/Vol]7.3 g/dLNormal6.4-8.2The [facility] Comment on above:Performed By: #### PTHINT #### [facility] [address] [place] [address] Dr. Angus HernandezSodium [Moles/Vol]142 mmol/ODxlsyh351-418Uia [facility] Comment on above:Performed By: #### PTHINT #### [facility] [address] [place] [address] Dr. Angus HernandezUrea nitrogen [Mass/Vol]17.0 mg/dLNormal7.0-18.0The [facility] HospitalComment on above:Performed By: #### PTHINT #### [facility] [address] [place] [address] Dr. Angus Dailey nitrogen/Creatinine [Mass ratio]14.8 mg/mgNormalThKettering Health DaytonComment on above:Performed By: #### PTHINT #### [facility] [address] [place] [address] Dr. Angus Lee [id number] uIU/mLNormal0.358-3.740St. Rita'S HospitalComment on above:Performed By: #### PTHINT #### [facility] [address] [place] [address] Dr. Angus HernandezCORTISOL Tomas [id number] AM13.1 ug/dLNormal6.2-19.4The [facility] HospitalComment on above:Performed By: #### HGBHCT #### [facility] [address] [place] [address] Dr. Angus HernandezCORTISOL PMon 33-81-6732Qnpyhahp PM4.1 ug/dLNormal2.3-11.9The [facility] HospitalComment on above:Performed By: #### HH #### [facility] [address] [address] [address] Angus HernandezINSULINon 51-43-0456Fvlcmbn0.6 uIU/mLNormal2.6-24.9The [facility] HospitalComment on above:Performed By: #### INSULIN #### [facility] [address] [address] [address] Angus HernandezXR CSPINE MIN 4 VIEWSon [id number] CSPINE MIN 4 VIEWS EXAMINATION: XR CSPINE [...] Electronically authenticated by: FELISA TUCKER Date: 2022-05-27 07:57[facility] HospitalXR TSPINE 3 VIEWSon [id number] TSPINE 3 VIEWSEXAMINATION: XR TSPINE 3 VIEWS HISTORY: Degeneration of [...] Electronically authenticated by: FELISA TUCKER Date: 2022-05-27 08:00[facility]Th[address] [facility] [facility] AUTO DIFFon [id number] #0.1 103/ulNormal0.0-0.1The [facility] HospitalComment on above:Performed By: #### CBC #### [facility] [address] [address] [address] Angus HernandezBasophils/100 WBC (Bld)0.7 %Normal0.2-2.0The [facility] Comment on above:Performed By: #### CBC #### [facility] [address] [address] [address] Angus Guzman #0.2 103/ulNormal0.0-0.7The [facility] HospitalComment on above: Performed By: #### CBC #### [facility] [address] [place] [address] Dr. Angus Rustosinophils/100 WBC (Bld)2.4 %Normal0.9-7.0The [facility] Comment on above:Performed By: #### CBC #### [facility] [address] [address] [address] Angus Rustrythrocyte distribution width (RBC) [Ratio]12.8 %Hymzls99.0-15.[address] [facility] Rita'S HospitalComment on above:Performed By: #### CBC #### [facility] [address] [place] [address] Dr. Angus HernandezHematocrit (Bld) [Volume fraction]35.9 %Critically low36.0-48.0 The [facility] HospitalComment on above:Performed By: #### CBC #### [facility] [address] [address] [address] Angus HernandezHemoglobin (Bld) [Mass/Vol]12.0 g/sXRtvaxh38.0-16.0The [facility] HospitalComment on above:Performed By: #### CBC #### [facility] [address] [place] [address] Dr. Angus Mckenzie #0.03 10e3/ulNormal0.00-0.03The [facility] HospitalComment on above:Performed By: #### CBC #### [facility] [address] [address] [address] Angus Mckenzie %0.4 %Normal0.0-0.5The [facility] HospitalComformerly [facility] on above: Performed By: #### CBC #### [facility] [address] [place] [address] Dr. Angus Otero #2.2 103/ulNormal1.2-3.8The [facility] HospitalComment on above:Performed By: #### CBC #### [facility] [address] [place] [address] Dr. Angus Reynosohocytes/100 WBC (Bld)32.7 %Fspifo98.5-60.0[facility] on above:Performed By: #### CBC #### [facility] [address] [place] [address] Dr. Angus LockwoodUAL DIFF REQNONormalThe [facility] HospitalComment on above: Performed By: #### CBC #### [facility] [address] [place] [address] Dr. Angus Cadena (RBC) [Entitic mass]30.7 lxLrhshp86.7-34.0The [facility] on above:Performed By: #### CBC #### [facility] [address] [place] [address] Dr. Angus Cadena (RBC) [Mass/Vol]33.4 g/mAQabwyh51.9-35.2The [facility] on above:Performed By: #### CBC #### [facility] [address] [place] [address] Dr. Angus Cadena (RBC) [Entitic vol]91.8 iDGewmtw37.0-99.0The [facility] on above:Performed By: #### CBC #### [facility] [address] [place] [address] Dr. Angus Carrillo #0.5 103/ulNormal0.3-0.8The [facility] on above:Performed By: #### CBC #### [facility] [address] [address] [address] Angus Wilsonocytes/100 WBC (Bld)7.1 %Normal1.7-12.0The [facility] Comment on above:Performed By: #### CBC #### [facility] [address] [place] [address] Dr. Angus TorresUT #3.8 103/ulNormal1.4-6.5The [facility] HospitalComment on above:Performed By: #### CBC #### [facility] [address] [place] [address] Dr. Angus Torresutrophils/100 WBC (Bld)56.7 %Tkaeum73.0-75.0The [facility] HospitalComment on above:Performed By: #### CBC #### [facility] [address] [place] [address] Dr. Angus HernandezPlatelet mean volume (Bld) [Entitic vol]10.4 fLNormal9.5-13.5The [facility] HospitalComment on above:Performed By: #### CBC #### [facility] [address] [place] [address] Dr. Angus HernandezPLT243 103/jxEigmfu655-572Eqy [facility] HospitalComment on above: Performed By: #### CBC #### [facility] [address] [place] [address] Dr. Angus HernandezRBC3.91 106/ulCritically low4.20-5.40The [facility] HospitalComment on above:Performed By: #### CBC #### [facility] [address] [place] [address] Dr. Angus HernandezWBC6.7 103/ulNormal4.0-11.0The [facility] on above: Performed By: #### CBC #### [facility] [address] [place] [address] Dr. Angus HernandezGLYCOHEMOGLOBIN A1Con [id number] RECOMMENDATIONSEE BELOWNormal The Katherine HospitalComment on above:Result Comment: ADA RECOMMENDED LIMIT 4.0 - 6.0 ADA THERAPEUTIC TARGET < 7.0 ACTION SUGGESTED > 7.0Performed By: #### HGBHCT #### [facility] [address] [address] [address] Angus HernandezGlucose [Mass/Vol]111 mg/dLMercy Health Fairfield HospitalComformerly [facility] on above:Performed By: #### HGBHCT #### [facility] [address] [place] [address] Dr. Angus HernandezHbA1c (Bld) [Mass fraction]5.5 %Normal4.5-6.2St. [facility]'S HospitalComformerly [facility] on above:Performed By: #### HGBHCT #### [facility] [address] [place] [address] Dr. Angus GalvanID PROFILEon [id number]-HDL RATIO NORMSDayton Children's HospitalComformerly [facility] on above:Result Comment: 3.3 - 4.4 LOW RISK 4.4 - 7.1 AVERAGE RISK 7.1 - 11.0 MODERATE RISK >11.0 HIGH RISKPerformed By: #### LIPID, CMP #### [facility] [address] [place] [address] Dr. Angus Burlesonesterol [Mass/Vol]188 mg/dLNormal<=200The [facility] Comment on above:Performed By: #### LIPID, CMP #### [facility] [address] [place] [address] Dr. Angus HernandezCholesterol in HDL [Mass/Vol]40 mg/gJZoijhd73-64Wng [facility] on above:Performed By: #### LIPID, CMP #### [facility] [address] [place] [address] Dr. Angus HernandezCholesterol in LDL [Mass/Vol]93.4 mg/dLSelect Medical [facility] [place] on above:Performed By: #### LIPID, CMP #### [facility] [address] [place] [address] Dr. Angus Burlesonesterol.total/Cholesterol in HDL [Mass ratio]4.7 {ratio} NormalThe [facility] on above:Performed By: #### LIPID, CMP #### [facility] [address] [place] [address] Dr. Angus Newell NORMAL> or = 60 mg/dl - LOW CARDIOVASCULAR RISK <40 mg/dl - HIGH CARDIOVASCULAR RISKSelect Medical [facility] [place] on above:Performed By: #### LIPID, CMP #### [facility] [address] [place] [address] Dr. Angus HernandezLDL CALC NORMALSEE BELOWMercy Health Fairfield HospitalComment on above:Result Comment: <100 mg/dl OPTIMAL 100 - 129 mg/dl NEAR OR ABOVE OPTIMAL 130 - 159 mg/dl BORDERLINE HIGH 160 - 189 mg/dl HIGH >190 mg/dl VERY HIGH Performed By: #### LIPID, CMP #### [facility] [address] [place] [address] Dr. Angus HernandezTriglyceride [Mass/Vol]273 mg/dLCritically high<=150The [facility] on above:Performed By: #### LIPID, CMP #### [facility] [address] [place] [address] Dr. Angus HernandezVLDL CALC54.6 mg/dLNoUK Healthcare on above: Performed By: #### LIPID, CMP #### [facility] [address] [place] [address] Dr. Angus HernandezPROF 14(COMP METB)on 94-16-2428Crkenmm [Mass/Vol]3.7 g/dLNormal 3.4-5.0[facility] on above:Performed By: #### LIPID, CMP #### [facility] [address] [place] [address] Dr. Angus HernandezAlbumin/Globulin [Mass ratio]1.1 {ratio}NormalThe [facility] HospitalComformerly [facility] on above:Performed By: #### LIPID, CMP #### [facility] [address] [place] [address] Dr. Angus HuitronP [Catalytic activity/Vol]46 U/MVibfob02-604Abl Katherine HospitalComment on above:Performed By: #### LIPID, CMP #### [facility] [address] [address] [address] Angus Ballard [Catalytic activity/Vol]26 U/HWnabsi12-25Ffa [facility] HospitalComment on above:Performed By: #### LIPID, CMP #### [facility] [address] [address] [address] Angus Bryanon gap [Moles/Vol]10.9 mmol/LNormalThe [facility] Comment on above:Performed By: #### LIPID, CMP #### [facility] [address] [address] [address] Angus HernandezAST [Catalytic activity/Vol]15 U/ZNufpio13-20Wwz [facility] HospitalComment on above:Performed By: #### LIPID, CMP #### [facility] [address] [address] [address] Angus HernandezBilirubin [Mass/Vol]0.6 mg/dLNormal0.2-1.0The [facility] on above:Performed By: #### LIPID, CMP #### [facility] [address] [address] [address] Angus HernandezCalcium [Mass/Vol]9.0 mg/dLNormal8.5-10.1The [facility] Comment on above:Performed By: #### LIPID, CMP #### [facility] [address] [address] [address] Angus HernandezChloride [Moles/Vol]107 mmol/DLzwier21-079Hjb [facility] on above:Performed By: #### LIPID, CMP #### [facility] [address] [address] [address] Angus HernandezCO2 [Moles/Vol]27.3 mmol/AQmltsq87.0-32.0The [facility] Comment on above:Performed By: #### LIPID, CMP #### [facility] [address] [address] [address] Angus HernandezCreatinine [Mass/Vol]1.19 mg/dLCritically high0.55-1.02The Still[facility] HospitalComment on above:Performed By: #### LIPID, CMP #### [facility] [address] [address] [address] Angus RustGFR-AF XCELDQRF50 mL/min/1.67q0Wbpczzikiy low>=60The [facility] HospitalComment on above:Performed By: #### LIPID, CMP #### [facility] [address] [address] [address] Angus RustGFR-NON AF SFPAMZDW20 mL/min/1.84h1Gslfpcbcgd low>=60The [facility] HospitalComment on above:Performed By: #### LIPID, CMP #### [facility] [address] [place] [address] Dr. Angus HernandezGlobulin (S) [Mass/Vol]3.5 g/dLNormalThKettering Health DaytonComment on above:Performed By: #### LIPID, CMP #### [facility] [address] [place] [address] Dr. Angus HernandezGlucose [Mass/Vol]108 mg/dLCritically mhbx14-850HevSt. Rita'S HospitalComment on above:Performed By: #### LIPID, CMP #### [facility] [address] [place] [address] Dr. Angus HernandezPotassium [Moles/Vol]4.2 mmol/LNormal3.5-5.1[facility] Comment on above:Performed By: #### LIPID, CMP #### [facility] [address] [place] [address] Dr. Angus HernandezProtein [Mass/Vol]7.2 g/dLNormal6.4-8.2The [facility] Comment on above:Performed By: #### LIPID, CMP #### [facility] [address] [place] [address] Dr. Angus HernandezSodium [Moles/Vol]141 mmol/DWzkcgn845-457Fxr [facility] on above:Performed By: #### LIPID, CMP #### [facility] [address] [place] [address] Dr. Angus HernandezUrea nitrogen [Mass/Vol]16.0 mg/dLNormal7.0-18.0The [facility] Centerment on above:Performed By: #### LIPID, CMP #### [facility] [address] [place] [address] Dr. Angus HernandezUrea nitrogen/Creatinine [Mass ratio]13.4 mg/mgNormalThe [facility] HospitalComment on above:Performed By: #### LIPID, CMP #### [facility] [address] [place] [address] Dr. Angus HernandezPTH INTACTon [id number], Gqdyhx62 pg/nZYrxeyg47-20T[facility] on above:Performed By: #### PTHINT #### [facility] [address] [place] [address] Dr. Angus HernandezHEMOGRAM AND PLATELon 08-98-0243Oxjwsxgrzd (Bld) [Volume fraction]39.5 %Diinlx28.0-48.0The [facility] on above:Performed By: #### HH #### [facility] [address] [place] [address] Dr. Angus HernandezHemoglobin (Bld) [Mass/Vol]13.3 g/hCLecdtp17.0-16.0[facility] on above:Performed By: #### HH #### [facility] [address] [place] [address] Dr. Angus Cadena (RBC) [Entitic mass]30.4 qfQrhxle72.7-34.0The [facility] HospitalComformerly [facility] on above:Performed By: #### HH #### [facility] [address] [place] [address] Dr. Angus CadenaHC (RBC) [Mass/Vol]33.7 g/yNOoracn05.9-35.2The [facility] Centerment on above:Performed By: #### HH #### [facility] [address] [place] [address] Dr. Angus CadenaV (RBC) [Entitic vol]90.2 cIKiyjhs34.0-99.0The Still[facility] HospitalComment on above:Performed By: #### HH #### [facility] [address] [place] [address] Dr. Angus HernandezPLT256 103/zzPkalpb336-794Ewd [facility] HospitalComment on above: Performed By: #### HH #### [facility] [address] [place] [address] Dr. Angus HernandezRBC4.38 106/ulNormal4.20-5.40The [facility] HospitalComment on above:Performed By: #### HH #### [facility] [address] [place] [address] Dr. Angus HernandezWBC8.7 103/ulNormal4.0-11.0The [facility] HospitalComment on above: Performed By: #### HH #### [facility] [address] [place] [address] Dr. Angus HernandezMAGNESIUMon 95-98-8734Nasemuddx [Mass/Vol]2.0 mg/dLNormal1.6-2.3 The [facility] HospitalComment on above:Performed By: #### HGBHCT #### [facility] [address] [place] [address] Dr. Angus Guadalupe FUNCTION PANELon 12-22-3029Wvrejju [Mass/Vol]3.9 g/dLNormal 3.4-5.0The [facility] HospitalComment on above:Performed By: #### HH #### [facility] [address] [place] [address] Dr. Angus HernandezCalcium [Mass/Vol]8.8 mg/dLNormal8.5-10.1The [facility] Comment on above:Performed By: #### HH #### [facility] [address] [place] [address] Dr. Angus HernandezChloride [Moles/Vol]104 mmol/AMnzwhs33-849XyvSt. Rita'S Hospital Comment on above:Performed By: #### HH #### [facility] [address] [place] [address] Dr. Angus HernandezCO2 [Moles/Vol]28.3 mmol/LSypyjh89.0-30.0[facility] Comment on above:Performed By: #### HH #### [facility] [address] [place] [address] Dr. Angus HernandezCreatinine [Mass/Vol]1.22 mg/dLCritically high0.52-1.04St. Rita'S HospitalComment on above:Performed By: #### HH #### [facility] [address] [address] [address] Angus RustGFR-AF BGRQBOBM04 mL/min/1.45n6Qzsoslawaf low>=60The [facility] HospitalComment on above:Performed By: #### HH #### [facility] [address] [place] [address] Dr. Angus RustGFR-NON AF QAPHRUBC08 mL/min/1.49f8Pywfkdgzuq low>=60The [facility] HospitalComment on above:Performed By: #### HH #### [facility] [address] [place] [address] Dr. Angus HernandezGlucose [Mass/Vol]77 mg/oENqbtuw75-884IxsSt. Rita'S Hospital Comment on above:Performed By: #### HH #### [facility] [address] [place] [address] Dr. Angus HernandezPhosphate [Mass/Vol]3.9 mg/dLNormal2.5-4.5The [facility] Comment on above:Performed By: #### HH #### [facility] [address] [place] [address] Dr. Angus HernandezPotassium [Moles/Vol]4.3 mmol/LNormal3.4-5.0The [facility] Comment on above:Performed By: #### HH #### [facility] [address] [place] [address] Dr. Angus HernandezSodium [Moles/Vol]140 mmol/JLavqxl980-850VmrSt. Rita'S Hospital Comment on above:Performed By: #### HH #### [facility] [address] [place] [address] Dr. Angus HernandezUrea nitrogen [Mass/Vol]22.0 mg/dLCritically high7.0-18.0St. Rita'S HospitalComment on above:Performed By: #### HH #### [facility] [address] [place] [address] Dr. Angus Sylvester RANDOM W/MICROSCOPICon 69-45-5546HXKWDOTRZKDK SEENNormalNONE SEENSt. Rita'S HospitalComment on above:Performed By: #### HGBHCT #### [facility] [address] [address] [address] Angus HernandezBilirubin Ql (U)NegativeNormalNEGATIVEJoint Township District [facility] on above:Performed By: #### HGBHCT #### [facility] [address] [place] [address] Dr. Angus MylesNONAspen SEENNormalNONE SEENSt. Rita'S HospitalComment on above:Performed By: #### HGBHCT #### [facility] [address] [address] [address] Angus Nuñezarity (U)CLEARNormalCLEARSt. Rita'S HospitalComment on above: Performed By: #### HGBHCT #### [facility] [address] [address] [address] Angus Lei (U)YELLOWNormalYELLOWSt. Rita'S HospitalComment on above: Performed By: #### HGBHCT #### [facility] [address] [address] [address] Angus HernandezCrystals LM Nom (Urine sed)NONE SEENNormalNONE SEENSt. Rita'S HospitalComment on above:Performed By: #### HGBHCT #### [facility] [address] [place] [address] Dr. Greco ChangEpithelial cells LM Ql (Urine sed)FEWAbnormalNONE SEEN /RAREThe [facility] HospitalComment on above:Performed By: #### HGBHCT #### [facility] [address] [place] [address] Dr. Angus Crossose Ql (U)NegativeNormalNEGATIVESt. Rita'S HospitalComment on above:Performed By: #### HGBHCT #### [facility] [address] [address] [address] Angus HernandezHemoglobin Ql (U)NegativeNormalNEGATIVESt. Rita'S Hospital Comment on above:Performed By: #### HGBHCT #### [facility] [address] [address] [address] Angus HernandezKetones Ql (U)NegativeNormalNEGATIVESt. Rita'S HospitalComment on above:Performed By: #### HGBHCT #### [facility] [address] [place] [address] Dr. Angus HernandezLEUKOCYTESNegativeNormalNEGATIVEThe [facility] HospitalComment on above:Performed By: #### HGBHCT #### [facility] [address] [place] [address] Dr. Angus HernandezMUCOUSNONE SEENNormalNONE SEENThe [facility] HospitalComment on above:Performed By: #### HGBHCT #### [facility] [address] [place] [address] Dr. Angus HernandezNitrite Ql (U)NegativeNormalNEGATIVESt. Rita'S HospitalComment on above:Performed By: #### HGBHCT #### [facility] [address] [place] [address] Dr. Angus HernandezpH (U)5.5 [pH]Normal5-9The [facility] HospitalComment on above: Performed By: #### HGBHCT #### [facility] [address] [place] [address] Dr. Angus HernandezRBCNONE SEENAbnormal0-2The [facility] HospitalComment on above: Performed By: #### HGBHCT #### [facility] [address] [place] [address] Dr. Angus HernandezSPEC GRAVITY>=1.325Gmexbtzc6.005-<=1.025The [facility] Comment on above:Performed By: #### HGBHCT #### [facility] [address] [place] [address] Dr. Angus HernandezUA PROTEINNegativeNormalNEGATIVE/ TRACEThe [facility] Comment on above:Performed By: #### HGBHCT #### [facility] [address] [place] [address] Dr. Angus Valentinobilleigh Qn (U)0.2 {Tara'U}/dLNormal0.2 - 1.0The [facility] HospitalComment on above:Performed By: #### HGBHCT #### [facility] [address] [place] [address] Dr. Angus AlfaroBCNONAspen SEENNormalNONE SEENSt. Rita'S HospitalComment on above: Performed By: #### HGBHCT #### [facility] [address] [place] [address] Dr. Angus Law ACID SERUMon 83-14-8543Omdel [Mass/Vol]4.5 mg/dLNormal 2.5-6.2The [facility] HospitalComment on above:Performed By: #### HGBHCT #### [facility] [address] [place] [address] Dr. Angus Junior T PROTEIN CREAT RATIOon 66-51-5426Tzubzuf (U) [Mass/Vol] 22.9 mg/dLCritically high<=12.0The [facility] HospitalComment on above:Performed By: #### HGBHCT #### [facility] [address] [place] [address] Dr. Angus Maxwell PROT CREAT RAT0.11NormalThe [facility] HospitalComment on above: Performed By: #### HGBHCT #### [facility] [address] [place] [address] Dr. Angus Junior GAXLI148.05 mg/xQOyfqgv49.00-300.00[facility] Comment on above:Performed By: #### HGBHCT #### [facility] [address] [place] [address] Dr. Angus Reyes D 25 OHon 40-29-4873KOD D 25-OH112.7 ng/mLNormalThe [facility] HospitalComment on above:Performed By: #### HGBHCT #### [facility] [address] [place] [address] Dr. Angus MINORSEAspen BELOWMercy Health Fairfield HospitalComment on above: Result Comment: <20 ng/mL Vit D deficient 20 - <30 ng/mL Vit D insufficient 30 - 100 ng/mL Vit D sufficient >100 ng/mL Potential ToxicityPerformed By: #### HGBHCT #### [facility] [address] [place] [address] Dr. Angus HernandezCovid-19 PCR ([facility]VDNEW [facility])on 63-07-8299IBCY-CoV-2 (COVID-19) RNA MATTHIEU+probe Ql (Unsp spec)Not detectedNormalNOT DETECTEDThe [facility] Comment on above:Result Comment: When diagnostic testing is negative, the [...] for this test is supported by the [place] of Health and Human Service's declaration that circumstances exist to justify the emergency use of in vitro diagnostics for the detection and/or diagnosis of the virus that causes COVID-19. This EUA will remain in effect for the duration of the COVID-19 declaration justifying emergency of IVDs, unless it is terminated or revoked by the FDA (after which the test may no longer be used).Performed By: #### CVDTBH #### [facility] [address] [place] [address] Dr. Angus Elder AUTO DIFFon 06-72-2068TLLT #0.1 103/ulNormal0.0-0.1The [facility] HospitalComment on above:Performed By: #### PTHINT #### [facility] [address] [place] [address] Dr. Angus HernandezBasophils/100 WBC (Bld)0.6 %Normal0.2-2.0The [facility] Comment on above:Performed By: #### PTHINT #### [facility] [address] [place] [address] Dr. Angus Guzman #0.0 103/ulNormal0.0-0.7The [facility] HospitalComment on above: Performed By: #### PTHINT #### [facility] [address] [place] [address] Dr. Angus Rustosinophils/100 WBC (Bld)0.3 %Critically low0.9-7.0The [facility] HospitalComment on above:Performed By: #### PTHINT #### [facility] [address] [place] [address] Dr. Angus Rustrythrocyte distribution width (RBC) [Ratio]12.6 %Fucuqx04.0-15.0 The [facility] HospitalComment on above:Performed By: #### PTHINT #### [facility] [address] [place] [address] Dr. Angus HernandezHematocrit (Bld) [Volume fraction]36.2 %Wjyerh41.0-48.0The [facility] HospitalComment on above:Performed By: #### PTHINT #### [facility] [address] [place] [address] Dr. Angus HernandezHemoglobin (Bld) [Mass/Vol]12.2 g/sKVncbfb52.0-16.0The [facility] HospitalComment on above:Performed By: #### PTHINT #### [facility] [address] [place] [address] Dr. Angus Mckenzie #0.03 10e3/ulNormal0.00-0.03The [facility] HospitalComment on above:Performed By: #### PTHINT #### [facility] [address] [place] [address] Dr. Angus Mckenzie %0.3 %Normal0.0-0.5The [facility] HospitalComment on above: Performed By: #### PTHINT #### [facility] [address] [place] [address] Dr. Angus Otero #3.5 103/ulNormal1.2-3.8The [facility] HospitalComment on above:Performed By: #### PTHINT #### [facility] [address] [place] [address] Dr. Angus Valladaresmphocytes/100 WBC (Bld)39.9 %Yisqwk77.5-60.0The [facility] HospitalComment on above:Performed By: #### PTHINT #### [facility] [address] [place] [address] Dr. Angus Paz DIFF REQNONormalThe [facility] HospitalComment on above: Performed By: #### PTHINT #### [facility] [address] [place] [address] Dr. Angus Cadena (RBC) [Entitic mass]30.3 xtBbgedc86.7-34.0The [facility] HospitalComment on above:Performed By: #### PTHINT #### [facility] [address] [place] [address] Dr. Angus Cadena (RBC) [Mass/Vol]33.7 g/mFFkqtwg07.9-35.2The [facility] HospitalComment on above:Performed By: #### PTHINT #### [facility] [address] [place] [address] Dr. Angus Cadena (RBC) [Entitic vol]90.0 wZTwqwex78.0-99.0The [facility] HospitalComment on above:Performed By: #### PTHINT #### [facility] [address] [place] [address] Dr. Angus Carrillo #0.6 103/ulNormal0.3-0.8The [facility] HospitalComment on above:Performed By: #### PTHINT #### [facility] [address] [place] [address] Dr. Angus Wilsonocytes/100 WBC (Bld)7.1 %Normal1.7-12.0The [facility] Comment on above:Performed By: #### PTHINT #### [facility] [address] [place] [address] Dr. Angus TorresUT #4.6 103/ulNormal1.4-6.5The [facility] HospitalComment on above:Performed By: #### PTHINT #### [facility] [address] [place] [address] Dr. Angus Torresutrophils/100 WBC (Bld)51.8 %Mfvlmo88.0-75.0The [facility] HospitalComment on above:Performed By: #### PTHINT #### [facility] [address] [place] [address] Dr. Angus HernandezPlatelet mean volume (Bld) [Entitic vol]10.3 fLNormal9.5-13.5The [facility] HospitalComment on above:Performed By: #### PTHINT #### [facility] [address] [place] [address] Dr. Angus HernandezPLT266 103/wfNreevn282-951Ezb [facility] HospitalComment on above: Performed By: #### PTHINT #### [facility] [address] [place] [address] Dr. Angus HernandezRBC4.02 106/ulCritically low4.20-5.40The [facility] HospitalComment on above:Performed By: #### PTHINT #### [facility] [address] [place] [address] Dr. Angus HernandezWBC8.8 103/ulNormal4.0-11.0The [facility] HospitalComment on above: Performed By: #### PTHINT #### [facility] [address] [place] [address] Dr. Angus HernandezPROF CHEM 8 (BAS METB)on 14-96-1892Rjoct gap [Moles/Vol]12.6 mmol/LNormalThe [facility] HospitalComment on above:Performed By: #### HH #### [facility] [address] [place] [address] Dr. Angus HernandezCalcium [Mass/Vol]8.6 mg/dLNormal8.4-10.2The [facility] Comment on above:Performed By: #### HH #### [facility] [address] [address] [address] Angus HernandezChloride [Moles/Vol]104 mmol/QRglwfc30-159Lsb [facility] Comment on above:Performed By: #### HH #### [facility] [address] [address] [address] Angus HernandezCO2 [Moles/Vol]28.6 mmol/CZgzzti04.0-30.0The [facility] Comment on above:Performed By: #### HH #### [facility] [address] [address] [address] Angus HernandezCreatinine [Mass/Vol]1.15 mg/dLCritically high0.52-1.04St. [facility] HospitalComment on above:Performed By: #### HH #### [facility] [address] [place] [address] Dr. Greco ChangEGFR-AF PHMJUTXX36 mL/min/1.60j1Soazzz>=60[facility] Comment on above:Performed By: #### HH #### [facility] [address] [place] [address] Dr. Angus RustGFR-NON AF CHMAEFWN23 mL/min/1.04e7Wppuhpcrjm low>=60St. [facility] HospitalComment on above:Performed By: #### HH #### [facility] [address] [address] [address] Angus HernandezGlucose [Mass/Vol]94 mg/vQFodeuv66-931MazSt. Rita'S Hospital Comment on above:Performed By: #### HH #### [facility] [address] [address] [address] Angus HernandezPotassium [Moles/Vol]4.2 mmol/LNormal3.4-5.0The [facility] Comment on above:Performed By: #### HH #### [facility] [address] [address] [address] Angus HernandezSodium [Moles/Vol]141 mmol/MGmuwvm266-942Qbg [facility] Comment on above:Performed By: #### HH #### [facility] [address] [address] [address] Angus Dailey nitrogen [Mass/Vol]22.0 mg/dLCritically high7.0-17.0St. [facility]'S HospitalComformerly [facility] on above:Performed By: #### HH #### [facility] [address] [place], [place] [address] Dr. Angus Dailey nitrogen/Creatinine [Mass ratio]19.1 mg/mgNormalThe [facility] HospitalComment on above:Performed By: #### HH #### [facility] [address] [address] [address] Angus Adan Summary.on 80-82-2928Fbxrpl Summary. CD:[id number]:[id number]+PGhlYWQ+YM1GQJRfY31fwQDpkS4TB7jYNP2KOTKPZZXWCJ8OKB2hp LY1JLybU4OaivNn [file] cHNl (more content not included)...[facility] CenterConsent for Treatmenton 31-52-9444Rvdhczq for Treatment [id number]#1.00CD:127[facility] CenterOffice/Clinic Note-Physicianon 18-73-1800Ibruun/Clinic Note-Physician [id number]#1.00CD:127[facility] CenterPatient Correspondenceon 51-30-7494Coqxyxi Correspondence [id number]#1.00CD:[address] [place], [place] [address]Patient History Officeon 85-22-5725Iofuyaj History Office [id number]#1.00CD:[address] [place], [place] [address]Coding Summary.on 56-09-7110Fpruxb Summary. CD:[id number]:[id number]+PGhlYWQ+MM0QTJQkU13dpJGiwG8KQ0hICE1JRJKJZVTZIM1VLO8sj LD7AJvhP8QtgfQn [file] cHNl (more content not included)...NormalFishJohns Hopkins Bayview Medical CenterCoding Summary.on 85-14-2494Kkwojl Summary. CD:[id number]:[id number]+PGhlYWQ+WY7QTEKgS94dnOMxrG2JC1qPAH5CKLKYRUXUAS5BNI4bi CH7FYdaK3AkynOy [file] cHNl (more content not included)...[facility] CenterConsent for Procedure/Surgeryon 19-08-0200Oroauym for Procedure/Surgery [id number]#1.00CD:127[facility] CenterConsent for Treatmenton 61-10-7708Hflmkkj for Treatment [id number]#1.00CD:[address] [place], [place] [address]Discharge Instructionson 39-94-9680Ghoasdesf Instructions [id number]#1.00CD:127[facility] CenterIntraOperative Documentson 45-25-3976UksxzPhoceqadt Documents [id number]#1.00CD:[address] [place], [place] [address]Main OR Intraoperative Recordon 65-04-1247Meck OR Intraoperative Record IntraOp Document Type FT Summary Primary Physician: Cole Hidalgo MD Finalized Date/Time: 09/02/21 09:26:26 Pt. Name: MYRTLE JONES/Sex: 1965 Female Med Rec #: [id number] Physician: Cole Hidalgo MD Financial #: [id number] Pt. Type: P Room/Bed: / Admit/Disch: 09/02/21 08:07:50 - Institution: Case Times FTPM Entry 1 Patient Times In Room 09/02/21 09:21:00 Out Room 09/02/21 09:26:00 Procedure Times Start 09/02/21 09:24:00 Stop 09/02/21 09:25:00 Anesthesia Times Last Modified By: Sylvia LIZ, Emerald Moreno 09/02/21 09:26:11 Case Attendance FTPM Entry 1 Entry 2 Entry 3 Case Attendee Gwen CANNON, Cole Ward RN, Emerald Burns RTMarissa RRalph L Role Performed Surgeon - Primary Furniture Duster - Primary Customer Experience Manager Time In 09/02/21 09:21:00 09/02/21 09:21:00 09/02/21 09:21:00 Time Out 09/02/21 09:26:00 09/02/21 09:26:00 09/02/21 09:26:00 Procedure LUMBAR EPIDURAL STEROID LUMBAR EPIDURAL STEROID LUMBAR EPIDURAL STEROID INJECTION(.) INJECTION(.) INJECTION(.) Comments Last Modified By: Sylvia RN, Emerald Ward RN, Emerald Ward RN, Emerald Moreno 09/02/21 09:26:12 09/02/21 09:26:12 09/02/21 09:26:12 Entry 4 Entry 5 Case Attendee Glenn RN, Evelyne Calle RN, Cole Armstrong Role Performed Staff - Other Scrub - Primary Time In 09/02/21 09:21:00 09/02/21 09:21:00 Time Out 09/02/21 09:26:00 09/02/21 09:26:00 Procedure LUMBAR EPIDURAL STEROID LUMBAR EPIDURAL STEROID INJECTION(.) INJECTION(.) Comments Last Modified By: Sylvia RN, Emerald Ward RN, Emerald Moreno 09/02/21 [...] CANNON, Cole Anaya, Glenn LIZ, Grant Sánchez RTMarissa R, Ralph L Time [...] and tissue Entry 1 Skin Integrity Intact, Rarden, Warm, and Skin Abnormality No Dry Outcomes [...] Under Head Large, Safe (more content not included)...[facility] CenterMain OR Preoperative Recordon 24-28-3808Fbie OR Preoperative RecordHolding Area Document Type FTPM Summary Primary Physician: Cole Hidalgo MD Finalized Date/Time: 09/02/21 08:30:21 Pt. Name: MYRTLE JONES/Sex: 1965 Female Med Rec #: [id number] Physician: Cole Hidalgo MD Financial #: [id number] Pt. Type: P Room/Bed: / Admit/Disch: 09/02/21 [...] or her perioperative plan of care The patient'sright to privacy is maintained Surgery Checklist FTPM [...] Signatures Signed By: Eve Torres RN 09/02/21 08:30NoCentervilleOperative Reporton 66-90-6429Qwmdsigbh ReportPatient: MYRTLE JONES Age: 56 years Sex: Female [...] procedure room and placed in the prone positionwith padding under the abdomen to reduce lumbar [...] Pressure, Monitered 110 mmHg SpO2 100 % .[facility] CenterComment on above:Result Comment: Electronically Signed By: Cole Hidalgo MD\.br\Date and Time Signed: 09/02/21 09:26 EDTPatient Correspondenceon 95-04-9177Ylkqzqb Correspondence [id number]#1.00CD:[address] [place], [place] [address]Insurance Correspondence Officeon 35-95-4715Nljlrnfsq Correspondence [id number]#1.00CD:[address] [place], [place] [address]Consent for Treatmenton 45-23-1917Eapwjmc for Treatment [id number]#1.00CD:[address] [place], [place] [address]HIPAA Forms Officeon 96-07-3123YRNKH Forms Office [id number]#1.00CD:[address] [place], [place] [address]Legal Correspondence Officeon 98-80-6291Pixiu Correspondence Office [id number]#1.00CD:[address] [place], [place] [address]Legal Correspondence Office [id number]#1.00CD:[address] [place], [place] [address]Office/Clinic Note-Physicianon 16-93-2615Frbjgh/Clinic Note-Physician [id number]#1.00CD:[address] [place], [place] [address]Patient Correspondenceon 54-97-6169Zieyvmi Correspondence [id number]#1.00CD:[address] [place], [place] [address]Patient [id number]#1.00CD:127 [facility] CenterPatient Correspondence [id number]#1.00CD:[address] [place], [place] [address]Patient [id number]#1.00CD:127 [facility] CenterPatient Correspondence [id number]#1.00CD:[address] [place], [place] [address]Patient History Officeon 60-87-8785Dfmarhu History Office [id number]#1.00CD:[address] [place], [place] [address]Radiology Outside Office Copyon 10-00-0107Pmgfuvptq Outside Office Copy [id number]#1.00CD:[address] [place], [place] [address]Radiology Outside Office Copy [id number]#1.00CD:[address] [place], [place] [address]Outside Records Officeon 00-76-8211Nfwoxmj Records Office [id number]#1.00CD:[address] [place], [place] [address]Referrals Officeon 44-46-6386Xmxqlpasu Office [id number]#1.00CD:[address] [place] [address] Vital Signs Date TimeVital SignValuePerforming MtrgdilszIloenktd04-23-4572 14:34-0400Body ezzwic716.18 cmDasilvestre Garcia DO Work Phone: [phone]08-27-2025 14:34-0400 Body mass index (BMI) [Ratio]23.9 kg/h1Vuykxsilvestre Garcia DO Work Phone: [phone]08-27-2025 14:34-0400 Body uhzroshebqt50.2 [degF]Anand Garcia DO Work Phone: [phone]08-27-2025 14:34-0400 Body ugmeba85.39 kgDasilvestre Garcia DO Work Phone: [phone]08-27-2025 14:34-0400 Diastolic blood qbsfiwka61 mm[Hg]Anand Garcia DO Work Phone: [phone]08-27-2025 14:34-0400 Heart rate61 /Neelaaniket Garcia DO Work Phone: [phone] [place], [place] 8002008-27-2025 14:34-0400 SaO2% (BldA) [Mass fraction]98 %Anand Radha DO Work Phone: [phone])[address] [place], [place] 8002008-27-2025 14:34-0400 Systolic blood fhlsnzmo472 mm[Hg]Anand Radha DO Work Phone: [phone])[address] [place], [place] 8002008-22-2025 11:27-0400 Body .18 cmDasilvestre Bellamyromelia DO Work Phone: [phone] [place], [place] 8002008-22-2025 11:27-0400 Body mass index (BMI) [Ratio]24.1 kg/j3Skcmk Girromelia DO Work Phone: [phone] [place], [place] 8002008-22-2025 11:27-0400 Body uxpbeseembg15.3 [degF]Anand Bellamyromelia DO Work Phone: [phone] [place], [place] 8002008-22-2025 11:27-0400 Body fosysu17.02 kgDajeanayla Radha DO Work Phone: [phone] [place], [place] 8002008-22-2025 11:27-0400 Diastolic blood mm[Hg]Anand Garcia DO Work Phone: [phone] [place], [place] 8002008-22-2025 11:27-0400 Heart rate76 /Carrieayla Bellamyromelia DO Work Phone: [phone])[address] [place], [place] 8002008-22-2025 11:27-0400 SaO2% (BldA) [Mass fraction]98 %Anand Bellamyromelia DO Work Phone: [phone] [place], [place] 8002008-22-2025 11:27-0400 Systolic blood zdjvbluk430 mm[Hg]Anand Garcia DO Work Phone: [phone] [place], [place] 8002007-14-2025 09:05-0400 Body mctexe440.18 cmDasilvestre Garcia DO Work Phone: [facility]07-14-2025 09:05-0400 Body mass index (BMI) [Ratio]23.8 kg/h9Keionsilvestre Garcia DO Work Phone: [facility]07-14-2025 09:05-0400 Body kgDasilvestre Garcia DO Work Phone: [phone]37[facility]06-04-2025 15:53-0400 Body yffqwg748.2 cmKatsim Carlson SENIOR ENVIRONMENTAL CONSULTANT.LABOR REPRESENTATIVE Work Phone: [facility]06-04-2025 15:53-0400Body mass index (BMI) [Ratio]23.49 kg/q8SnojacsidSimona Carlson SENIOR ENVIRONMENTAL CONSULTANT.LABOR REPRESENTATIVE Work Phone: [facility]06-04-2025 15:53-0400Body .04 kgSimona Carlson SENIOR ENVIRONMENTAL CONSULTANT.LABOR REPRESENTATIVE Work Phone: [facility]06-04-2025 15:53-0400Diastolic blood hmsaycij63 mm[Hg]Simona Carlson SENIOR ENVIRONMENTAL CONSULTANT.LABOR REPRESENTATIVE Work Phone: [facility]06-04-2025 15:53-0400Systolic blood ffxwjlho632 mm[Hg]Simona Carlson SENIOR ENVIRONMENTAL CONSULTANT.LABOR REPRESENTATIVE Work Phone: [facility]05-20-2025 14:41-0400Body temperature 97.7 [degF]Anand Garcia DO Work Phone: [facility]05-20-2025 14:41-0400 Body irpekw43.08 kgDajeanayla Garcia DO Work Phone: [phone]05-20-2025 14:41-0400 Diastolic blood cphkyoks22 mm[Hg]Anand Garcia DO Work Phone: [phone]05-20-2025 14:41-0400 SaO2% (BldA) [Mass fraction]98 %Anand Garcia DO Work Phone: [phone])[address] [place], [place] 8002005-20-2025 14:41-0400 Systolic blood cbgedhst482 mm[Hg]Anand Garcia DO Work Phone: 1419)[address] [place], [place] 8002003-12-2025 14:30-0400 Diastolic blood qjbinkpv88 mm[Hg]Anand Garcia DO Work Phone: 1419)[address] [place], [place] 8002003-12-2025 14:30-0400 Heart rate68 /Pascual Josesitoromelia DO Work Phone: [phone])[address] [place], [place] 8002003-12-2025 14:30-0400 Respiratory rate20 /Carrieayla Bellamyromelia DO Work Phone: [phone])[address] [place], [place] 8002003-12-2025 14:30-0400 SaO2% (BldA) [Mass fraction]99 %Anand Garcia DO Work Phone: 1419)[address] [place], [place] 8002003-12-2025 14:30-0400 Systolic blood ibdbjfmq035 mm[Hg]Anand Garcia DO Work Phone: 1(433)[address] [place] 8002003-12-2025 12:35-0400 Body gzffjmqaldh90.7 [degF]Anand Garcia DO Work Phone: 1(539)[address] [place] 8002003-12-2025 12:05-0400 Inhaled oxygen flow rate8 L/Pascual Josesitoromelia DO Work Phone: 1(288)[address] [place] 8002003-12-2025 09:33-0400 Body .18 cmDajeanayla Bellamyromelia DO Work Phone: 1419)[address] [place], [place] 8002003-12-2025 09:33-0400 Body nehkku87.03 kgDaviayla Bellamyvin DO Work Phone: 1419)[address] [place], [place] 8002002-17-2025 15:12-0500 Body bpzbzu834.18 cmDaviayla Bellamyvin DO Work Phone: 1419)[address] [place], [place] 8002002-17-2025 15:12-0500 Body mass index (BMI) [Ratio]23.7 kg/y8Polij Girvin DO Work Phone: 1419)[address] [place], [place] 8002002-17-2025 15:12-0500 Body ykmyfc95.8 kgDavid Girvin DO Work Phone: 1419)[address] [place], [place] 8002001-16-2025 15:34-0500 Body .18 cmDaviayla Bellamyvin DO Work Phone: 1419)[address] [place], [place] 8002001-16-2025 15:34-0500 Body mass index (BMI) [Ratio]23.7 kg/m3Nywun Girvin DO Work Phone: 1419)[address] [place], [place] 8002001-16-2025 15:34-0500 Body tkqrechyjuf93.4 [degF]Anand Radha DO Work Phone: 1419)[address] [place], [place] 8002001-16-2025 15:34-0500 Body nraord42.8 kgDavid Girvin DO Work Phone: 1419)[address] [place], [place] 8002001-16-2025 15:34-0500 Diastolic blood voozlnjy11 mm[Hg]Anand Garcia DO Work Phone: 1419)[address] [place] 8002001-16-2025 15:34-0500 Heart rate72 /minDaniket Girvin DO Work Phone: 1(499)[address] [place] 8002001-16-2025 15:34-0500 Respiratory rate16 /minDaniket Bellamyvin DO Work Phone: 1(336)[address] [place] 8002001-16-2025 15:34-0500 SaO2% (BldA) [Mass fraction]98 %Anand Garcia DO Work Phone: 1419)[address] [place] 8002001-16-2025 15:34-0500 Systolic blood yerxgeoc676 mm[Hg]Anand Garcia DO Work Phone: 1(712)[address] [place] 8002012-19-2024 08:33-0500 Body rxmylk143.18 cmDaviayla Bellamyvin DO Work Phone: 1419)[address] [place] 8002012-19-2024 08:33-0500 Body mass index (BMI) [Ratio]23.9 kg/p7Lyrlk Girvin DO Work Phone: [facility]12-19-2024 08:33-0500 Body jpmuop90.39 kgDavid Girvin DO Work Phone: [facility]12-04-2024 16:00-0500 Body lgdcqo790.2 cmSimona Carlson SENIOR ENVIRONMENTAL CONSULTANT.LABOR REPRESENTATIVE Work Phone: [facility]12-04-2024 16:00-0500Body mass index (BMI) [Ratio]24.17 kg/s8Umdaroxgfsim Carlson SENIOR ENVIRONMENTAL CONSULTANT.LABOR REPRESENTATIVE Work Phone: [facility]12-04-2024 16:00-0500Body dcfabi88 kg Simona Carlson SENIOR ENVIRONMENTAL CONSULTANT.LABOR REPRESENTATIVE Work Phone: [facility]12-04-2024 16:00-0500Diastolic blood etcgnptu06 mm[Hg]Simona Carlson SENIOR ENVIRONMENTAL CONSULTANT.LABOR REPRESENTATIVE Work Phone: [facility]12-04-2024 16:00-0500Heart rate74 /min Simona Carlson SENIOR ENVIRONMENTAL CONSULTANT.LABOR REPRESENTATIVE Work Phone: [facility]12-04-2024 16:00-0500Systolic blood ddziazzd012 mm[Hg]Simona Carlson SENIOR ENVIRONMENTAL CONSULTANT.LABOR REPRESENTATIVE Work Phone: [facility]11-20-2024 14:52-0500Body mass index (BMI) [Ratio]24.3 kg/t4Jaqcc Radha DO Work Phone: [facility]11-20-2024 14:52-0500 Body thartuoovgz20.1 [degF]Anand Garcia DO Work Phone: [facility]11-20-2024 14:52-0500 Diastolic blood huvsrjpp37 mm[Hg]Anand Garcia DO Work Phone: [facility]11-20-2024 14:52-0500 Heart rate66 /Pascual Radha DO Work Phone: [phone])[address]11-20-2024 14:52-0500 SaO2% (BldA) [Mass fraction]98 %Anand Garcia DO Work Phone: 1(188)[address] [place] 8002011-20-2024 14:52-0500 Systolic blood wrxanhpq841 mm[Hg]Anand Garcia DO Work Phone: 1(299)[address] [place] 8002011-20-2024 14:37-0500 Body .18 cmDaviayla Garcia DO Work Phone: 1(550)[address] [place] 8002011-20-2024 14:37-0500 Body ekzcbn70.3 kgDasilvestre Garcia DO Work Phone: 1(432)[address] [place] 8002008-21-2024 14:45-0400 Body byuarw978.18 cmDO Anand Garcia Work Phone: 1(444)[address] [place] 8002008-21-2024 14:45-0400 Body mass index (BMI) [Ratio]24.3 kg/m2DO Anand Garcia Work Phone: 1(867)[address] [place] 8002008-21-2024 14:45-0400 Body qjxmvukbcbk85.3 [degF]DO Anand Garcia Work Phone: 1(943)[address] [place] 8002008-21-2024 14:45-0400 Body .3 kgDO Anand Garcia Work Phone: 1(513)[address] [place] 8002008-21-2024 14:45-0400 Diastolic blood exludrqx24 mm[Hg]DO Anand Garcia Work Phone: 1(870)[address] [place] 8002008-21-2024 14:45-0400 Heart rate57 /minDO Anand Bellamyromelia Work Phone: 1(220)[address] [place] 8002008-21-2024 14:45-0400 Respiratory rate18 /minDO Anand Bellamyromelia Work Phone: 1(292)[address] [place] 8002008-21-2024 14:45-0400 SaO2% (BldA) [Mass fraction]98 %DO Anand Garcia Work Phone: [facility]08-21-2024 14:45-0400 Systolic blood rsorhfou353 mm[Hg]DO Anand Garcia Work Phone: [facility]2024 16:01-0400 Body eezoqk705.2 cmKatsim Carlson SENIOR ENVIRONMENTAL CONSULTANT.LABOR REPRESENTATIVE Work Phone: [facility]2024 16:01-0400Body mass index (BMI) [Ratio]25.41 kg/m8Tebkvputx Martinezchildren's mercy hospitaltabitha SENIOR ENVIRONMENTAL CONSULTANT.LABOR REPRESENTATIVE Work Phone: [facility]2024 16:01-0400Body quvbzo26.6 kgKatfour county counseling center Michelle SENIOR ENVIRONMENTAL CONSULTANT.LABOR REPRESENTATIVE Work Phone: [facility]2024 16:01-0400Diastolic blood mm[Hg]Simona Carlson SENIOR ENVIRONMENTAL CONSULTANT.LABOR REPRESENTATIVE Work Phone: [facility]2024 16:01-0400Heart rate67 /min Simona Carlson SENIOR ENVIRONMENTAL CONSULTANT.LABOR REPRESENTATIVE Work Phone: [facility]2024 16:01-0400Systolic blood dhynsbmd041 mm[Hg]Simona Carlson SENIOR ENVIRONMENTAL CONSULTANT.LABOR REPRESENTATIVE Work Phone: [facility]11-13-2023 14:40-0500Body aptwuo558.18 cmDasilvestre Bellamyromelia Other [employer] [facility] [employer] Other 11-13-2023 14:40-0500Body mass index (BMI) [Ratio] 28.97 kg/k6OfwfxAnand Garcia Other [employer] [place] Other 11-13-2023 14:40-0500Body pswflnqohap45.1 [degF]Anand Garcia Other [employer] Other 11-13-2023 14:40-0500Body iyjtrc44.92 kgDasilvestre Garcia Other [employer] Other 11-13-2023 14:40-0500Diastolic blood shinwnco65 mm[Hg] Anand Garcia Other [employer] Other 11-13-2023 14:40-0500Respiratory rate18 /minDaviayla Garcia Other [employer] Other 11-13-2023 14:40-9227WdR2% (BldA) [Mass fraction]97 % Anand Garcia Other [employer] Other 11-13-2023 14:40-0500Systolic blood eivjxsxt601 mm[Hg] Anand Garcia Other [employer] Other 08-09-2023 14:40-0400Body wwvodk021.18 cmDasilvestre Garcia Other [employer] Other 08-09-2023 14:40-0400Body mass index (BMI) [Ratio]28.5 kg/w5PojmrAnand Garcia Other [employer] Other 08-09-2023 14:40-0400Body rqsejpzreqo52.3 [degF]Anand Garcia Other [employer] Other 08-09-2023 14:40-0400Body cwqrlu44.56 kgDasilvestre Garcia Other [employer] Other 08-09-2023 14:40-0400Diastolic blood cvvwewyp86 mm[Hg] Anand Garcia Other [employer] Other 08-09-2023 14:40-0400Respiratory rate18 /minDaniket Bellamyromelia Other [employer] Other 08-09-2023 14:40-8932OhW1% (BldA) [Mass fraction]98 % Anand Garcia Other [employer] Other 08-09-2023 14:40-0400Systolic blood zecimbud238 mm[Hg] Anand Garcia Other [employer] Other 03-16-2023 15:00-0400Body anzekx575.18 cmAbdul Yemi Other [employer] Other 03-16-2023 15:00-0400Body mass index (BMI) [Ratio] 27.58 kg/m1Iiltf Yemi Other [employer] Other 03-16-2023 15:00-0400Body vercpafcmit38.3 [degF]Marianne Yemi Other [employer] Other 03-16-2023 15:00-0400Body bpyuhf31.88 kgAbdul Yemi Other [employer] Other 03-16-2023 15:00-0400Diastolic blood uwbfjzeh22 mm[Hg] Marianne Yemi Other [employer] Other 03-16-2023 15:00-0400Respiratory rate18 /minAbdul Yemi Other [employer] Other 03-16-2023 15:00-4361AjM1% (BldA) [Mass fraction]100 % Marianne Yemi Other [employer] Other 03-16-2023 15:00-0400Systolic blood ewsxfucw913 mm[Hg] Marianne Yemi Other [employer] Other 01-30-2023 15:40-0500Body orkwcx956.18 cmDasilvestre Garcia Other [employer] Other [id number] 15:40-0500Body mass index (BMI) [Ratio] 27.17 kg/a1VdyqwAnand Garcia Other [employer] Other [id number] 15:40-0500Body lcrrqarvmci66 [degF]Anand Garcia Other [employer] Other 01-30-2023 15:40-0500Body hglnue41.7 kgDasilvestre Garcia Other [employer] Other 01-30-2023 15:40-0500Diastolic blood kjldzpiz80 mm[Hg] Anand Garcia Other [employer] Other 183219-77-1887 15:40-0500Respiratory rate18 /minDaviayla Garcia Other [employer] Other 01-30-2023 15:40-7235ViQ7% (BldA) [Mass fraction]98 % Anand Garcia Other [employer] Other 01-30-2023 15:40-0500Systolic blood mm[Hg] Anand Garcia Other [place] Other 01-16-2023 12:54-0500Body .2 cmAnaid Mccauley SENIOR ENVIRONMENTAL CONSULTANT.LABOR REPRESENTATIVE Work Phone: [facility]01-16-2023 12:54-0500Body ntimfn33.47 kgAnaid Mccauley SENIOR ENVIRONMENTAL CONSULTANT.LABOR REPRESENTATIVE Work Phone: [phone]01-16-2023 12:54-0500Diastolic blood qvvpraug12 mm[Hg]Anaid Mccauley SENIOR ENVIRONMENTAL CONSULTANT.LABOR REPRESENTATIVE Work Phone: [phone] [facility] Ucubzs45-81-1592 12:54-0500Heart rate76 /min Anaid Mccauley SENIOR ENVIRONMENTAL CONSULTANT.LABOR REPRESENTATIVE Work Phone: [facility]01-16-2023 12:54-0500Systolic blood lohcyywd239 mm[Hg]Anaid Mccauley SENIOR ENVIRONMENTAL CONSULTANT.LABOR REPRESENTATIVE Work Phone: [facility]10-26-2022 15:40-0400Body jjmzxi386.18 cmDavid Girvin Other [employer] Other 09-23-2022 15:30-0400Body .56 kgEric Robles DO Work Phone: [facility]09-23-2022 15:30-0400Diastolic blood uwlflbtv14 mm[Hg]Cresencio Robles DO Work Phone: [facility]09-23-2022 15:30-0400Heart rate62 /min Cresencio Robles DO Work Phone: [facility]09-23-2022 15:30-0400Systolic blood tqrwevvw943 mm[Hg]Cresencio Robles DO Work Phone[facility] Slexjr24-89-7180 15:40-0400Body mlkzoz175.18 cmDavid Girvin Other [employer] Other 07-25-2022 15:40-0400Body mass index (BMI) [Ratio] 27.09 kg/m1Rlntjsilvestre Garcia Other [employer] Other 07-25-2022 15:40-0400Body ffrgzeuhgdo11.2 [degF]Anand Garcia Other [employer] Other 07-25-2022 15:40-0400Body asfsae91.47 kgDasilvestre Garcia Other [employer] Other 07-25-2022 15:40-0400Diastolic blood ufgnoybn80 mm[Hg] Anand Garcia Other [employer] Other 07-25-2022 15:40-0400Respiratory rate18 /minDaniket Garcia Other [employer] Other 07-25-2022 15:40-8689RvK7% (BldA) [Mass fraction]98 % Anand Garcia Other [employer] Other 07-25-2022 15:40-0400Systolic blood yxuoqqws350 mm[Hg] Anand Garcia Other [employer] Other 04-14-2022 15:40-0400Body .18 cmAbdul Yemi Other [employer] Other 04-14-2022 15:40-0400Body mass index (BMI) [Ratio] 27.09 kg/m0Twzxm Yemi Other [employer] Other 04-14-2022 15:40-0400Body exofdzxoekg77 [degF]Marianne Yemi Other [employer] Other 04-14-2022 15:40-0400Body amlskp58.47 kgAbdul Yemi Other [employer] Other 04-14-2022 15:40-0400Diastolic blood mm[Hg] Marianne Yemi Other [employer] Other 04-14-2022 15:40-0400Respiratory rate18 /minAbdul Yemi Other [employer] Other 04-14-2022 15:40-8467DqT6% (BldA) [Mass fraction]99 % Marianne Yemi Other [employer] Other 04-14-2022 15:40-0400Systolic blood akxksfut947 mm[Hg] Marianne Yemi Other [employer] Other 04-08-2022 10:00-0400Body vehrdh536.18 cmRobert [place] II Other [employer] Other 04-08-2022 10:00-0400Body mass index (BMI) [Ratio] 27.09 kg/m3Xvsuco [place] II Other [employer] Other 04-08-2022 10:00-0400Body .47 kgRobert [place] II Other [employer] Other 03-21-2022 17:00-0400Body vumegq355.18 cmDavid Radha Other [email or web address] Other 03-21-2022 17:00-0400Body mass index (BMI) [Ratio] 27.09 kg/b5QyaorAnand Garcia Other [employer] Other 03-21-2022 17:00-0400Body xmavblctvtd89.7 [degF]Anand Garcia Other [employer] Other 03-21-2022 17:00-0400Body cldyiq00.47 kgDasilvestre Garcia Other [employer] Other 03-21-2022 17:00-0400Diastolic blood vsnjoltn70 mm[Hg] Anand Garcia Other [employer] Other 03-21-2022 17:00-0400Respiratory rate18 /minDaniket Garcia Other [employer] Other 03-21-2022 17:00-3197LfO8% (BldA) [Mass fraction]99 % Anand Garcia Other [employer] Other 03-21-2022 17:00-0400Systolic blood qmywkwfg252 mm[Hg] Anand Garcia Other [employer] Other Encounters Encounter DateEncounter TypeCare ProviderFacilityStart: 08-20-2025 End: 58-60-6009Ptkpznb encounter procedureDasilvestre Garcia DO-[facility] Work Phone: Start: 08-20-2025 End: 00-30-6276cehwvznmffKlvbn Girvin DO Work Phone: [phone]-Dxeuyj for Breast CareStart: 07-07-2025 End: 51-74-6856eoettuwxghNtrxtqjca Najdovski APRN.LABOR REPRESENTATIVE Work Phone: NeurologyComment on above:Need prior authorization Start: 07-04-2025 End: 98-26-3443pnxwanozvbIuefy GirvinFacility:[facility] Start: 94-39-0586Lbh-patient / Non-visitDavid Josh Garcia DO-[facility] Work Phone: Start: 06-27-2025 End: 42-28-4881rppzvmcnvoTmkwi Girvin DO Work Phone: [facility] Work Phone: Start: 06-27-2025 End: 06-91-3197Jrrrhjb encounter procedureDasilvestre Garcia DO-[facility] [place] Work Phone: Start: 06-22-2025 End: 40-73-5006Wdeqobyv Pat Shultz APRN-[facility] Work Phone: Start: 06-22-2025 End: 40-63-0249szhisrmkgrQgjgw Girvin DO Work Phone: [facility] Work Phone: Start: 06-22-2025 End: 75-47-2994Feqoqbv encounter procedureEly Shultz APRN-[facility] [place] Work Phone: Start: 06-20-2025 End: 65-02-5705GkonidEawlznrjw Najdovski SENIOR ENVIRONMENTAL CONSULTANT.LABOR REPRESENTATIVE Work Phone: NeurologyComment on above:Refill Request (RP managed refill)Start: 65-40-3217Urt-patient / Non-visitDavid Josh Garcia DO-[facility] Work Phone: Start: 05-14-2025 End: 73-44-3257lvdhfxyvqfOefoh Girvin DO Work Phone: [facility] Work Phone: Start: 05-14-2025 End: 93-50-8450Pidxlth encounter procedureRalph Hoff DO[facility] Work Phone: Start: 04-23-2025 End: 06-64-5373Szowqzf encounter Stella Hoff DO-[facility] Work Phone: Start: 04-19-2025 End: 49-76-3566Njwrae flowsheetEdith Mensahbley PTANOMS CI PTStart: 04-19-2025 End: 83-69-8169Tgazor flowsheetEdith Mensahbley PTANOMS CI PTStart: 04-19-2025 End: 97-21-3774fzrvxuwqpmRhmpcvb Kelbley PTANOMS CI PTComment on above: Tendinitis of left rotator cuff (Primary Dx); Tear of left rotator cuff, unspecified tear extent, unspecified whether traumaticStart: 04-17-2025 End: 79-73-3410Pjwdzp flowsheetEdith Lopezy PTANOMS CI PTStart: 04-17-2025 End: 95-48-9285Pfekxh flowsheetEdith Lopezy PTANOMS CI PTStart: 04-17-2025 End: 81-98-8403udmprrxnniHlzxgap Rodrickbley PTANOMS CI PTComment on above: Tendinitis of left rotator cuff (Primary Dx); Tear of left rotator cuff, unspecified tear extent, unspecified whether traumaticStart: 04-12-2025 End: 12-03-1727Zwragw Nataleelakia Magana PTANOMS CI PTStart: 04-12-2025 End: 54-95-3843Jemuwh efraTony Magana PTANOMS CI PTStart: 04-12-2025 End: 45-67-5708svpjqugbgeXurgyhk Izzy PTANOMS CI PTComment on above: Tendinitis of left rotator cuff (Primary Dx); Tear of left rotator cuff, unspecified tear extent, unspecified whether traumatic; Other shoulder lesions, left shoulderStart: 04-10-2025 End: 31-15-8534Ciwjuq Malia Magana PTANOMS CI PTStart: 04-10-2025 End: 78-93-7458Ryzwct efraTony Magana PTANOMS CI PTStart: 04-10-2025 End: 18-33-3482nfuejnckvwUwwdnnk Lawrence PTANOMS CI PTComment on above: Tendinitis of left rotator cuff (Primary Dx); Tear of left rotator cuff, unspecified tear extent, unspecified whether traumatic; Other shoulder lesions, left shoulderStart: 04-05-2025 End: 45-96-6664Rfepjf flowsheetMelissa Kelbley PTANOMS CI PTStart: 04-05-2025 End: 25-45-1435Rxtmrl flowsheetMelissa Kelbley PTANOMS CI PTStart: 04-05-2025 End: 55-55-3256begjmbqhfhSlfyvge Kelbley PTANOMS CI PTComment on above: Tendinitis of left rotator cuff (Primary Dx); Tear of left rotator cuff, unspecified tear extent, unspecified whether traumatic; Other shoulder lesions, left shoulderStart: 04-04-2025 End: 14-59-7713Ksnswd outpatient visit 15 minutesSimona Carlson APRN.[facility] Work Phone: NeurologyComment on above:Migraine without aura and without status migrainosus, not intractable (Primary Dx); Migraine with aura and without status migrainosus, not intractableStart: 04-04-2025 End: 16-03-1251jmfsdpsrhhNEDAYDDFC NAJDOVSKIFacility:[facility] Start: 04-03-2025 End: 09-76-4472dchvwfdbokUuukamp Lawrence PTANOMS CI PTComment on above: Tendinitis of left rotator cuff (Primary Dx); Tear of left rotator cuff, unspecified tear extent, unspecified whether traumatic; Other shoulder lesions, left shoulderStart: 03-29-2025 End: 67-76-9656Fxmayt flowsheetMelissa Kelbley PTANOMS CI PTStart: 03-29-2025 End: 59-18-8848Aachfx flowsheetMelissa Kelbley PTANOMS CI PTStart: 03-29-2025 End: 37-65-4884zqcrzftsamUzmounj Kelbley PTANOMS CI PTComment on above: Tendinitis of left rotator cuff (Primary Dx); Tear of left rotator cuff, unspecified tear extent, unspecified whether traumatic; Other shoulder lesions, left shoulderStart: 03-27-2025 End: 50-65-7327Iluuut flowsheetJalen Magana PTANOMS CI PTStart: 03-27-2025 End: 25-51-4802Otmcxv efraheetJalen Magana PTANOMS CI PTStart: 03-27-2025 End: 20-23-5423qxhqsomgxnOculrpc Lawrence PTANOMS CI PTComment on above: Tendinitis of left rotator cuff (Primary Dx); Tear of left rotator cuff, unspecified tear extent, unspecified whether traumatic; Other shoulder lesions, left shoulderStart: 03-22-2025 End: 80-18-0752kxoqdixqlbYYDJFENP BRINKNot AvailableStart: 03-20-2025 End: 99-83-8425Ofpppwo encounter procedureDasilvestre Garcia -[facility] Work Phone: Start: 03-20-2025 End: 26-22-6707Zeoxmc flowsheetSammantha Flynn PTNOMS CI PTStart: 03-20-2025 End: 22-28-4362Ntchxz flowsheetSammantha Flynn PTNOMS CI PTStart: 03-20-2025 End: 72-69-0045tcsipwgalzCyngbrotw Flynn PTNOMS CI PTComment on above: Tendinitis of left rotator cuff (Primary Dx); Tear of left rotator cuff, unspecified tear extent, unspecified whether traumatic; Other shoulder lesions, left shoulderStart: 03-15-2025 End: 36-80-1997Pftzci Malia Magana PTANOMS CI PTStart: 03-15-2025 End: 94-94-1143Xjaqjp flowsheetJalen Magana PTANOMS CI PTStart: 03-15-2025 End: 38-00-2449jaizccmsihLcfrhav Lawrence PTANOMS CI PTComment on above: Tendinitis of left rotator cuff (Primary Dx); Tear of left rotator cuff, unspecified tear extent, unspecified whether traumatic; Other shoulder lesions, left shoulderStart: 03-13-2025 End: 15-97-9643Rxepkr flowsheetMelangela Dickson PTANOMS CI PTStart: 03-13-2025 End: 05-34-2093Nxbqas flowsNahum ABDI CI PTStart: 03-13-2025 End: 26-44-8273fyyrvtjqgqGougkly Kelbley PTANOMS CI PTComment on above: Tendinitis of left rotator cuff (Primary Dx); Tear of left rotator cuff, unspecified tear extent, unspecified whether traumatic; Other shoulder lesions, left shoulderStart: 03-08-2025 End: 09-08-5786Zvlxdv Malia Magana PTANOMS CI PTStart: 03-08-2025 End: 02-74-8633Gmtijn Malia Magana PTANOMS CI PTStart: 03-08-2025 End: 26-02-6350jpgdzfniocOndlijo Lawrence PTANO CI PTComment on above: Tendinitis of left rotator cuff (Primary Dx); Tear of left rotator cuff, unspecified tear extent, unspecified whether traumatic; Other shoulder lesions, left shoulderStart: 03-06-2025 End: 79-21-8503fjsgoqzwgdIoohbfyArlene ABDI CI PTComment on above: Tendinitis of left rotator cuff (Primary Dx); Tear of left rotator cuff, unspecified tear extent, unspecified whether traumatic; Other shoulder lesions, left shoulderStart: 03-05-2025 End: 98-43-9497btwvoezuvzRnlpt Girromelia DO Work Phone: [facility] Work Phone: Start: 03-05-2025 End: 12-52-0632Zuedhct encounter procedureDasilvestre Garica DO Work Phone: [facility] Work Phone: Start: 03-01-2025 End: 07-43-5303Rmxixi Malia PACKMS CI PTStart: 03-01-2025 End: 50-25-1263Fqpmzq Malia Magana PTANOMS CI PTStart: 03-01-2025 End: 13-73-2639czmjudfiroDptrvrf Izzy JADIELNOMS CI PTComment on above: Tendinitis of left rotator cuff (Primary Dx); Tear of left rotator cuff, unspecified tear extent, unspecified whether traumatic; Other shoulder lesions, left shoulderStart: 02-27-2025 End: 66-55-3500Tmcjwt flowsheetSeliazar Flynn PTNOMS CI PTStart: 02-27-2025 End: 53-65-6586Zijvoz flowsheetSammacarin Flynn PTNOMS CI PTStart: 02-27-2025 End: 31-29-1808gxiobfsjrdGzstxfqgl Flynn PTNOMS CI PTComment on above: Tendinitis of left rotator cuff (Primary Dx); Tear of left rotator cuff, unspecified tear extent, unspecified whether traumatic; Other shoulder lesions, left shoulderStart: 02-22-2025 End: 65-56-3519Wdbvtc Malia Magana PTANOMS CI PTStart: 02-22-2025 End: 20-38-2252Bflwpl Malia Magana PTANOMS CI PTStart: 02-22-2025 End: 58-10-8546eruxnqnfzhAotixnq Lawrence PTANOMS CI PTComment on above: Tendinitis of left rotator cuff (Primary Dx); Tear of left rotator cuff, unspecified tear extent, unspecified whether traumatic; Other shoulder lesions, left shoulderStart: 02-20-2025 End: 52-15-4174Psjrhs Malia Magana PTANOMS CI PTStart: 02-20-2025 End: 83-23-9894Oznbtp Malia Magana PTANOMS CI PTStart: 02-20-2025 End: 25-20-0741zacprhhiccXkleygr Lawrence PTANOMS CI PTComment on above: Tendinitis of left rotator cuff (Primary Dx); Tear of left rotator cuff, unspecified tear extent, unspecified whether traumatic; Other shoulder lesions, left shoulderStart: 02-15-2025 End: 27-78-7103Eporpi flowsheetXavier Brink PTANOMS CI PTStart: 02-15-2025 End: 06-08-8695Ayzgus flowsheetMarshall Brink PTANOMS CI PTStart: 02-15-2025 End: 26-00-7764ssyaqygcbmKuxvsfca Brink PTANOMS CI PTComment on above:Tendinitis of left rotator cuff (Primary Dx); Tear of left rotator cuff, unspecified tear extent, unspecified whether traumatic; Other shoulder lesions, left shoulderStart: 02-13-2025 End: 84-67-9696Tfckzb flowsheetEdith Dickson PTANOMS CI PTStart: 02-13-2025 End: 19-43-2719Ouyine flowsheetEdith Dickson PTANOMS CI PTStart: 02-13-2025 End: 79-32-4329ibyrqgzganMunrlhk Kelbley PTANOMS CI PTComment on above: Tendinitis of left rotator cuff (Primary Dx); Tear of left rotator cuff, unspecified tear extent, unspecified whether traumatic; Other shoulder lesions, left shoulderStart: 02-09-2025 End: 86-21-7514Iudbnm flowsheetSammantha Flynn PTNOMS CI PTStart: 02-09-2025 End: 60-66-9805Mhnfcz flowsheetSammantha Flynn PTNOMS CI PTStart: 02-09-2025 End: 37-60-3158ladgqmqdqeSpnurcfqe Flynn PTNOMS CI PTComment on above: Tendinitis of left rotator cuff (Primary Dx); Tear of left rotator cuff, unspecified tear extent, unspecified whether traumatic; Other shoulder lesions, left shoulderStart: 02-07-2025 End: 35-99-8446Ibrwik flowsheetSammantha Flynn PTNOMS CI PTStart: 02-07-2025 End: 13-53-7559Sldnve flowsheetSammantha Flynn PTNOMS CI PTStart: 02-07-2025 End: 27-70-8938chadqmqapoMluctrbgi Flynn PTNOMS CI PTComment on above: Tendinitis of left rotator cuff (Primary Dx); Tear of left rotator cuff, unspecified tear extent, unspecified whether traumatic; Other shoulder lesions, left shoulderStart: 01-22-2025 End: 02-33-1150lvjwesldiuEcokq Girvin DO Work Phone: [facility] Work Phone: Start: 01-22-2025 End: 57-90-2953Vbaqyrt encounter procedureAnand Garcia DO Work Phone: [facility][Note 3] Orthopedics Work Phone: Start: 01-22-2025 End: 48-75-7266Xpvkgjt encounter procedureDavid Girvin DO Work Phone: [facility] Start: 01-22-2025 End: 24-11-1767slcwovxhkmZenfa Girvin DO Work Phone: [facility] Work Phone: Start: 01-18-2025 End: 09-69-8236Bapplx flowsheetJalen Magana PTANOMS CI PTStart: 01-18-2025 End: 06-18-3325Akiokk flowsheetJalen Magana PTANOMS CI PTStart: 01-16-2025 End: 49-49-4557xwpophkixqVRYCOWC LAWRENCENot AvailableStart: 01-12-2025 End: 54-07-4162srjdkxtqbzWQFARTEZD SCHNEIDERNot AvailableStart: 57-96-1421Zjy- patient / Non-visitDavid Girvin DO Work Phone: [facility][Note 3] Orthopedics Work Phone: Start: 01-10-2025 End: 56-49-8923Hbfoiinyh to same day surgery centerDavid Girvin DO Work Phone: [facility]: 01[facility]10[facility]2025 End: 26-92-9552qecocaqygiZzxtw Girvin DO Work Phone: [facility] Work Phone: Start: 12-26-2024 End: 73-03-9819Buwzcpm encounter procedureDavid Girvin DO Work Phone: [facility] Qtu-Snl-Ixbbgzgw Testing Work Phone: Start: 12-26-2024 End: 40-13-2636pddbmzbkekJnpgw Girvin DO Work Phone: [facility] Work Phone: Start: 61-58-9429Oegmgkpxf for preprocedural laboratory examinationRalph Jain [facility]art: 12-19-2024 End: 22-31-6121bvbvuibcsbCbxcd Girromelia DO Work Phone: [facility] Work Phone: Start: 12-19-2024 End: 69-82-1145Tawlwuz encounter procedureDaviayla Garcia DO Work Phone: [facility] Work Phone: Start: 12-18-2024 End: 20-10-1205ikzuglcmlvFqxtv Girvin DO Work Phone: [facility] Work Phone: Start: 12-18-2024 End: 30-39-0663Uhlkalf encounter procedureDasilvestre Garcia DO Work Phone: [facility][Note 3] Orthopedics Work Phone: Start: 12-11-2024 End: 11-02-2244kiozgbtahcFqbptseel Gee PTNOMS CI PTComment on above:Tear of left rotator cuff, unspecified tear extent, unspecified whether traumatic (Primary Dx); Other shoulder lesions, left shoulderStart: 12-07-2024 End: 66-53-8429Agklqsqwl encounterSalma Callejas RN Work Phone: [facility] Home DeliveryStart: 12-04-2024 End: 70-38-2524ppezggonisYdfhajpb Brink PTANOMS CI PTComment on above:Tear of left rotator cuff, unspecified tear extent, unspecified whether traumatic (Primary Dx); Other shoulder lesions, left shoulderStart: 12-04-2024 End: 82-21-6768Wbnmjn flowsheetMarshall Brink PTANOMS CI PTStart: 12-04-2024 End: 56-37-8541Pntkei flowsheetMarshall Brink PTANOMS CI PTStart: 11-27-2024 End: 37-61-5981fhgxpjcbubQsiwczes Brink PTANOMS CI PTComment on above:Tear of left rotator cuff, unspecified tear extent, unspecified whether traumatic (Primary Dx); Other shoulder lesions, left shoulderStart: 11-27-2024 End: 18-80-0622Xnakpf flowsheetMarshall Brink PTANOMS CI PTStart: 11-27-2024 End: 91-31-5843Ksplwy flowsheetMarshall Brink PTANOMS CI PTStart: 11-20-2024 End: 69-42-1415Icwsyu flowsheetMarshall Brink PTANOMS CI PTStart: 11-20-2024 End: 51-53-3713Iqclyz flowsheetMarshall Brink PTANOMS CI PTStart: 11-20-2024 End: 56-87-2046csbepezalgVrwpbmpl Brink PTANOMS CI PTComment on above:Tear of left rotator cuff, unspecified tear extent, unspecified whether traumatic (Primary Dx); Other shoulder lesions, left shoulderStart: 11-16-2024 End: 95-37-1638tnekffspdfNwwzg Radha DO Work Phone: [facility] Work Phone: Start: 11-16-2024 End: 33-23-9983Edoedvp encounter procedureDavid Radha DO Work Phone: [facility] [place] Work Phone: Start: 11-13-2024 End: 49-18-7493fbdepddjvhPvtgoxvi Brink PTANOMS CI PTComment on above:Tear of left rotator cuff, unspecified tear extent, unspecified whether traumatic (Primary Dx); Other shoulder lesions, left shoulderStart: 11-13-2024 End: 20-41-3170Wyseej flowsheetMarshall Brink PTANOMS CI PTStart: 11-13-2024 End: 13-03-8917Udtlyo flowsheetMarshall Brink PTANOMS CI PTStart: 11-08-2024 End: 27-81-9209Fubvrj outpatient visit 15 minutesRySaint John's [facility] Work Phone: noms [facility] DERMComment on above:Other seborrheic dermatitis (Primary Dx)Start: 11-08-2024 End: 79-16-1309ksyuovbjvtRJWDL [facility]PITALMNot AvailableStart: 11-08-2024 End: 41-20-0575Xhchtb flowsJohns [facility] Work Phone: noms [facility] DERMStart: 11-08-2024 End: 02-54-3572Zfqyjt [facility] Work Phone: noms SWS DERMStart: 11-06-2024 End: 81-88-5426eiknfydvydDvxlewee Brink PTANOMS CI PTComment on above:Tear of left rotator cuff, unspecified tear extent, unspecified whether traumatic (Primary Dx); Other shoulder lesions, left shoulderStart: 11-06-2024 End: 90-85-8357Kgrxac flowsheetMarshall Brink PTANOMS CI PTStart: 11-06-2024 End: 89-75-4870Ogomzj flowsheetMarshall Brink PTANOMS CI PTStart: 10-30-2024 End: 38-84-2620Xemjhx flowsheetSammantha Flynn PTNOMS CI PTStart: 10-30-2024 End: 17-29-7181Wvylsu flowsheetSammantha Flynn PTNOMS CI PTStart: 10-30-2024 End: 40-30-0418usozililpvWradtzxhq Flynn PTNOMS CI PTComment on above:Tear of left rotator cuff, unspecified tear extent, unspecified whether traumatic (Primary Dx); Other shoulder lesions, left shoulderStart: 70-81-4783Bgo-patient / Non-visit Anand Garcia DO Work Phone: [facility] Work Phone: Start: 10-19-2024 End: 82-88-0266Wewbrrg encounter procedureDasilvestre Garcia DO Work Phone: [facility] Orthopedics Work Phone: Start: 10-19-2024 End: 31-74-5406aizvrvyvfdRhmtp GirvinFacility:[facility] Start: 10-12-2024 End: 35-02-3815bldtybxrvfRPKNZ C GIRVINNot AvailableStart: 10-11-2024 End: 66-50-6946Umfwpkbse encounterJacy HaqMercy Health St. [facility] Home DeliveryComment on above:Insurance Authorization (NURTEC ODT 75 mg disintegrating tablet); NURTEC ODT 75 mg disintegrating tabletStart: 10-04-2024 End: 33-06-6134ztuigirkdoQYNVGPCAC NAJDOVSKIFacility:[facility] Start: 10-04-2024 End: 62-23-0766Zxqslmw encounter Singh Carlson APRN.CNP Work Phone: NeurologyComment on above:Migraine without aura and without status migrainosus, not intractable (Primary Dx); Migraine with aura and without status migrainosus, not intractableStart: 09-20-2024 End: 69-08-2081Zolteks encounter Katrin Garcia DO Work Phone: [facility] [place] Work Phone: Start: 08-30-2024 End: 13-73-9470Tsbjgz outpatient new 45 minutesRye [facility] Work Phone: NOMS SWS DERMComment on above:Other seborrheic dermatitis (Primary Dx)Start: 08-30-2024 End: 83-04-8013ybhkggeypgNMZXF NORTHEIMNot AvailableStart: 08-30-2024 End: 46-44-6487Dceole flowsheetRylee [facility] Work Phone: [facility] SWS DERMStart: 08-30-2024 End: 29-51-6730Hnrggk flowsheetRylee [facility] Work Phone: [facility] SWS DERMStart: 08-18-2024 End: 84-73-9407vncisjuystML David Girvin Work Phone: [facility] Work Phone: Start: 08-18-2024 End: 91-43-7210Grwktmz encounter procedureDO Anand Garcia Work Phone: [facility] Work Phone: Start: 07-21-2024 End: 94-27-8307tjsnouyrpnGdkv P Robles DO Work Phone: NeurologyComment on above:Loss of hairStart: 07-20-2024 End: 96-00-7499Kwltqpghr encounterSalma Callejas RN Work Phone: [facility] Home DeliveryComment on above: Insurance Authorization; Qulipta 60MG tabletsStart: 06-21-2024 End: 78-38-1521Tgfjydy encounter procedureDO Anand Garcia Work Phone: [facility] Work Phone: Start: 12-61-4824VqclikSdoytzljqSol Carlson APRN.LABOR REPRESENTATIVE Work Phone: NeurologyComment on above:Refill RequestStart: 96-59-8468owbatsjywkKemo P Robles DO Work Phone: NeurologyComment on above:Prior Authorization needed Start: 06-93-4691Hxb-patient / Non-visitDO Anand Garcia Work Phone: [facility] Work Phone: Start: 03-29-2024 End: 50-47-8223Pabkmpf encounter procedureSimona Carlson APRN.LABOR REPRESENTATIVE Work Phone: NeurologyComment on above:Migraine with aura and without status migrainosus, not intractable (Primary Dx); Migraine without aura and without status migrainosus, not intractableStart: 33-96-7258bkepddtrwaBVMK P BARONFacility:[facility] HospitalStart: 03-03-2024 End: 83-91-9366Eslfjrezim hospital visit by physicianWilbur Mcbride (I-Stat/1.5t) Work Phone: RadiologyComment on above:Thunderclap headache [G44.53]Start: 27-10-5683Eyuqdgbqq encounterElizabeemanuel Regi PSSRadiologyStart: 66-32-0880Mhswjfyau encounterEric P Robles DO Work Phone: NeurologyComment on above:Insurance Authorization (Ilfdosp-Lfjgtd-Lhwtb Theraputics)Insurance Authorization (Bsybgwt-Esagcx-Waykm Theraputic)Start: 39-82-5706ddjhmdyjonUjyc P Robles DO Work Phone: NeurologyComment on above:Possible migraine with stroke systemsStart: 64-38-6861Xcozaybae encounterSalma Callejas RN Work Phone: [facility] Home DeliveryComment on above: Insurance Authorization (Aimovig 140MG/ML auto-injectors/)Start: 09-20-2023 End: 57-57-3636ffvysigzhwFckdg Girvin Other [employer] Other Start: 76-39-4092Lzyqnrpcs encounterDasilvestre [facility] BellevueStart: 09-13-2023 End: 03-67-7897rhuclnfffnMjpuf Girvin Other [employer] Other Start: 39-08-9718Iqsslw outpatient visit 25 minutes Anand [facility] [place]vueStart: 39-09-6374Hatzrinco encounterEric P Robles DO Work Phone: NeurologyComment on above:Insurance Authorization (TRUDHESA)Start: 07-29-2023 End: 65-90-3952wnahupaukhCY David Girvin Work Phone: [facility] Work Phone: Start: 07-29-2023 End: 48-06-2944Mjgfevq encounter procedureDO Anand Garcia Work Phone: [facility] Work Phone: Start: 06-09-2023 End: 90-80-6552epwtdnrwnrLojvu Girvin Other [facility] [employer] Other Start: 48-17-7281Roeoyv outpatient visit 25 minutes Anand [facility] [place]Start: 01-14-2023 End: 74-95-1577avbwrswkgcDjzck Yemi Other [facility] [employer] Other Start: 71-85-7221Ljesyw outpatient visit 25 minutes Marianne QadirFPG [facility] ClydeStart: 01-02-2023 End: 87-53-4246havmpmbuvsFS ANAND GARCIAFacility:R2Dnfho: 12-29-2022 End: 00-38-0094ksmnmovyvpHzbkw Girvin Other [facility] [employer] Other Start: 42-50-3324Bfukzmwoe encounterDasilvestre [facility] RoxanneevueStart: 11-30-2022 End: 23-69-7325lkeytpjkltRrbom Girvin Other [facility] [employer] Other Start: 89-78-6563Bobqod outpatient visit 15 minutes Anand [facility] BellevueStart: 64-04-1133BolzvyKxfs P Robles DO Work Phone: NeurologyComment on above:Refill RequestStart: 11-16-2022 End: 18-92-4125Mfrfama encounter Mahad Mccauley APRN.LABOR REPRESENTATIVE Work Phone: Spine CenterComment on above:Cervicalgia (Primary Dx); History of fusion of cervical spine; Cervical spondylosisStart: 11-16-2022 End: 90-19-8154Hjxjybzyzx hospital visit by physicianWilbur Mcbride (I-Stat/1.5t) Work Phone: RadiologyComment on above:Cervicalgia [M54.2]Start: 11-14-2022 End: 68-11-7907jnstazaamkBR DAVID GIRVINFacility:C7Ekrgm: 19-41-5119Tdhmrscrp encounterLori (Spencer) PinardoRadiologyComment on above:appointment instructions (MRI- 11/16/2022 @ 1040am/Appointment reminder call - LEFT MESSAGE - with di rections to office and the # to call if they cannot keep this appointment/[phone]/)Start: 07-78-9002Sudxvgttt encounterSalma Callejas RN Work Phone: [facility] Home DeliveryComment on above: Insurance Authorization (Aimovig 140MG/ML auto-injectors/)Start: 09-28-2022 End: 40-15-6219bkuxoyuxueAsobizCristi Mccauley APRN.CNP Work Phone: Spine CenterComment on above:Spinal stenosis of cervical region (Primary Dx); Cervicalgia; History of fusion of cervical spine; Cervical spondylosisStart: 09-28-2022 End: 30-37-6068Pqmswycgkoku consultation with Jarvis Mccauley APRN.CNP Work Phone: [facility]PITALtart: 72-63-7699lfkvtpjfvpMo Pcp (Historical)[facility]igM[facility] EnterpriseStart: 08-26-2022 End: 20-83-1680iymcxckewmWdxfd Girvin Other [email or web address] Other Start: 45-21-8265Czqagthda encounterDasilvestre [facility] [place]vueStart: 07-29-2022 End: 78-26-3959kxwlkqxzwiBdtez Girvin Other [employer] Other Start: 04-91-7951Xegctanhb encounterDaviayla GarciaG [facility] BellevueStart: 07-24-2022 End: 68-09-2758Bimwhjv encounter procedureCresencio Robles DO Work Phone: NeurologyComment on above:Migraine with aura and without status migrainosus, not intractable (Primary Dx); Cervicalgia; Migraine without aura and without status migrainosus, not intractable; Bilateral occipital neuralgiaStart: 06-02-2022 End: 63-83-2456Novywot encounter procedureDO Anand Garcia Work Phone: [facility] Start: 33-49-7733Euwxtcxzo encounterDasilvestre Bennett [facility] Start: 05-27-2022 End: 66-12-3270rcmfcomiljTZ ANAND [facility] [employer] Other Start: 05-26-2022 End: 91-97-5521slnfnkvsyaJG DAVID GIRVINFacility:G9Qhxqv: 05-25-2022 End: 22-36-1915dvarshijvuZxsgp Girvin Other [employer] Other Start: 29-22-6562Aedmfn outpatient visit 25 minutes Anand Bennett [facility] BellueStart: 05-09-2022 End: 26-35-9291yotibhhkfgEP DAVID GIRVINFacility:L5Bhuyp: 02-12-2022 End: 08-03-0719qrykzrdegxHdvhb Yemi Other [employer] Other Start: 90-63-5265Pnjhsp outpatient visit 15 minutes Marianne QadirFPG [facility]ph[facility] ClydeStart: 02-11-2022 End: 81-18-9522kmrfolwjbaCmrgxc [place] Other [employer] Other Start: 94-14-9892Pdyqolnzu encounterRobert [place] [facility] Referral CoordinatorStart: 02-06-2022 End: 53-00-8993dgoblbucecMrofql [place] II Other [facility] [employer] Other Start: 31-82-0316Kaztep outpatient new 45 minutes Dario Quintanillaisle IIFPG Pranav OrthopedicsStart: 02-03-2022 End: 17-83-8813xhresmqjpgPB ANAND Olivacility:D1Jncai: 33-68-7380Yvrksadhv for preprocedural laboratory examinationDR YANNICK [facility] HospitalStart: 01-28-2022 End: 23-30-7893pyqjgrmixuYH YANNICK ESTRADAFacility:Z9Dllzd: 01-24-2022 End: 67-71-5915mcjtezuwouYD ANAND Prietoity:V2Ueorq: 01-24-2022 End: 32-54-9301Zwtunkrhm for preprocedural laboratory examinationDR ANAND GARCIA Facility:G6Yobuu: 01-20-2022 End: 40-19-5834zjsjpxtmhlHO DAVID GIRVINFacility:I1Dtcwr: 46-42-5653Lqgeaqtin for preprocedural cardiovascular examinationDR YANNICK [facility] HospitalStart: 87-86-9767Dwkvxyqai for preprocedural laboratory examinationDR YANNICK [facility] HospitalStart: 01-19-2022 End: 46-90-5569nmvqrcqevtXsyck Girvin Other [employer] Other Start: 48-15-1029Mjvohvvhu for other preprocedural examinationDasilvestre [facility] BellueStart: 83-69-2462Hmfohx outpatient visit 15 minutesDasilvestre Bennett [facility] CenterueStart: 01-15-2022 End: 85-92-1653icdyfkazaoYZ YANNICK Liangcility:Z1Logxi: 01-15-2022 End: 32-55-9117Xqlqlnizr for preprocedural cardiovascular examinationDR YANNICK ESTRADAFacility:H1 Procedures DateProcedureProcedure DetailPerforming ClinicianStart: 06-27-0179Rbyiaooxu mammography of bilateral breastsDavid Radha DO Work Phone: Start: 99-60-7433Akshk cultureDavid Girvin DO Work Phone: Start: 02-15-8898Umqfm X-ray of left shoulderDavid Radha DO Work Phone: Start: 79-18-0026MA Shoulder Scope RCR/Biceps Tendon (Left)Anand Garcia DO Work Phone: Start: 85-44-3041Ecoxz X-ray of left shoulderDavid Radha DO Work Phone: Start: 36-16-0754Xfhvrbmov mammography of bilateral breastsDO Anand Garcia Work Phone: Start: 74-73-5747Sdq head w/o contrst materialEric P DO Work Phone: Start: 02-37-5901Szpuutmxf mammography of bilateral breastsDO Anand Garcia Work Phone: Start: 83-47-5611Cjy spinal canal cervical w/o contrast Bert Mccauley APRN.LABOR REPRESENTATIVE Work Phone: Start: 92-68-5567Qflxd depression screening assessment Cresencio DO Work Phone: Start: 95-54-9739Nbrhrljjh mammography of bilateral breastsDO Anand Garcia Work Phone: Plan of Treatment DateCare ActivityDetailAuthorStart: 11-08-2025 End: 52-71-9391Wnphxlm encounter hjqgxegah11/08/2026 3:30 PM EST Office Visit [facility] [address] [place] [address] Sanjay Hawkins PA [address] [place] [address] [facility] SWS DERMStart: 10-10-2025 End: 46-97-9575Gpmcarc encounter cnkzeexsb30/10/2025 1:00 PM EST Office Visit Neurology [address] [place] [address] Simona Carlson APRN.LABOR REPRESENTATIVE [address] [place] [address] FOLLOW UP 6 MONTHSNeurologyComment on above:FOLLOW UP 6 MONTHSStart: 10-05-2025 End: 12-29-2510Arkftco encounter ecsmztkvu69/05/2025 4:00 PM EST Office Visit Neurology [address] [id number] Simona Carlson APRN.LABOR REPRESENTATIVE [address] [place] [address] FOLLOW UP 6 MONTHSNeurologyComment on above:FOLLOW UP 6 MONTHSStart: 29-17-2060Ufnir [facility] Centertart: 45-95-5124Zsyfrfrhe vaccinationBarney Children's Medical Centertart: 26-75-3491Msrujwcm identified in Urine by CultureUrine [facility] Start: 06-22-2025 End: 93-49-7131Jnutx [facility] Centertart: 04-19-2025 End: 21-71-6226jxqposcxjkRTSR CI PTComment on above:ArrivedStart: 04-17-2025 End: 54-55-0030giyplbquveXNJX CI PTComment on above:Tendinitis of left rotator cuff (Primary Dx); Tear of left rotator cuff, unspecified tear extent, unspecified whether traumaticStart: 04-12-2025 End: 51-31-7484bjwwffvdqtYVSE CI PTComment on above:ArrivedStart: 04-10-2025 End: 92-18-6030deygjrurnsNOSG CI PTComment on above:ArrivedStart: 04-05-2025 End: 80-20-4961ddffrtsivvYJYT CI PTComment on above:ArrivedStart: 04-04-2025 End: 34-47-5288Pwqqhfc encounter dxxjkapuj39/04/2025 4:00 PM EDT Office Visit Neurology [address] [facility] [address] [place] [address] Simona Carlson APRN.LABOR REPRESENTATIVE [address] [place] [address] Return in about 6 months (around 04/04/2025), or if symptoms worsen or fail to improve, for Follow-up.NeurologyComment on above:Return in about 6 months (around 04/04/2025), or if symptoms worsen or fail to improve, for Follow-up.Start: 04-03-2025 End: 60-68-1955eqwlgfrcyt83/03/2025 10:30 AM EDT Treatment [facility] [address] [address] Jalen Magana PTANOMS CI PTStart: 03-29-2025 End: 33-71-9677eufoykrvkzKLRO CI PTComment on above:ArrivedStart: 03-27-2025 End: 17-67-5672tyjwdkfxdfMLIN CI PTComment on above:ArrivedStart: 03-22-2025 End: 41-96-1178bswjzcwrym19/22/2025 10:30 AM EDT Treatment [facility] [address] [address] Xavier Harrison PTA [facility] CI PTStart: 03-20-2025 End: 42-18-5549setepawutsWITQ CI PTComment on above:Tendinitis of left rotator cuff (Primary Dx); Tear of left rotator cuff, unspecified tear extent, unspecified whether traumatic; Other shoulder lesions, left shoulderStart: 03-15-2025 End: 16-98-1224qiwpqrlyufHEZB CI PTComment on above:Tendinitis of left rotator cuff (Primary Dx); Tear of left rotator cuff, unspecified tear extent, unspecified whether traumatic; Other shoulder lesions, left shoulderStart: 03-13-2025 End: 54-90-4215ednbnrvvxcESHK CI PTComment on above:ArrivedStart: 03-08-2025 End: 55-87-6941wvsdmxpnec79/08/2025 12:00 PM EDT Treatment [facility] [address] [facility] [address] [place] [address] Jalen Magana PTANOMS CI PTStart: 03-01-2025 End: 00-31-6671sdnooviyfjIZGL CI PTComment on above:Tendinitis of left rotator cuff (Primary Dx); Tear of left rotator cuff, unspecified tear extent, unspecified whether traumatic; Other shoulder lesions, left shoulderStart: 02-27-2025 End: 18-00-8004ktsztcozhxMFKQ CI PTComment on above:ArrivedStart: 02-22-2025 End: 29-37-1607zsfmreogikMXQQ CI PTComment on above:ArrivedStart: 02-20-2025 End: 90-39-5820guqjqsuibdCFFV CI PTComment on above:ArrivedStart: 02-15-2025 End: 43-74-9305drojlmryajCVGR CI PTComment on above:ArrivedStart: 02-13-2025 End: 17-18-8165cveoxqotuqFBRA CI PTComment on above:ArrivedStart: 02-09-2025 End: 59-57-1505gettkkqaymGCEW CI PTComment on above:ArrivedStart: 02-07-2025 End: 39-93-7064zoguhuzojq60/09/2025 2:00 PM EDT Treatment [facility] [address] [facility] [address] [place] [address] Kathryn Flynn, PT ArrivedNOMS CI PTComment on above:ArrivedStart: 02-01-2025 End: 18-78-4593txlkimkyhj92/03/2025 1:00 PM EDT Treatment [facility] [address] [facility] [address] [place] [address] Jalen Magana PTANOMS CI PTStart: 01-30-2025 End: 77-15-6805tibxnjvoax51/01/2025 12:30 PM EDT Treatment [facility] [address] [facility] [address] [place] [address] Kathryn Flynn, PTNOMS CI PTStart: 01-25-2025 End: 65-21-7899ggurqsjvhs74/27/2025 1:00 PM EDT Treatment [facility] [address] [facility] [address] [place] [address] Jalen Magana PTANO CI PTStart: 01-22-2025 End: 22-22-2775upafajoxqn38/24/2025 1:30 PM EDT Treatment [facility] [address] [facility] [address] [place] [address] Jalen Magana PTANOMS CI PTStart: 90-39-6922Djnzn X-ray of left shoulderXR shoulder LT min 2V* [facility] Memorialtart: 71-92-1135ED Shoulder - left Views [facility]tart: 01-18-2025 End: 79-90-7282jqwpigrlfd74/20/2025 2:00 PM EDT Treatment [facility] [address] [facility] [address] [place] [address] Jalen Magana, POUAKO KURA KAUPAPA MAORI Tendinitis of left rotator cuff (Primary Dx)NOMS CI PTComment on above: Tendinitis of left rotator cuff (Primary Dx)Start: 01-10-2025 End: 08-68-4267LoieoyhffKettering Health Greene Memorialtart: 12-11-2024 End: 20-45-9341sfxuytdmah59/10/2025 3:30 PM EST Treatment [facility]OMS CI PT [address] [facility] [address] [place] [address] Kathryn Flynn, PTNOMS CI PTStart: 12-04-2024 End: 16-02-6697mxvfmhrkbnJXAF CI PTComment on above:Tear of left rotator cuff, unspecified tear extent, unspecified whether traumatic (Primary Dx); Other shoulder lesions, left shoulderStart: 11-27-2024 End: 92-14-3775nfxjrjutzkWEXY CI PTComment on above:Tear of left rotator cuff, unspecified tear extent, unspecified whether traumatic (Primary Dx); Other shoulder lesions, left shoulderStart: 11-20-2024 End: 15-59-4057zoyqndgfil74/20/2025 3:30 PM EST Treatment [facility]OMS CI PT [address] [facility] [address] [place] [address] Xavier Harrison, JADIEL NOMS CI PTStart: 11-20-2024 End: 21-54-9946yzztyzsibaTVTP CI PTComment on above:ArrivedStart: 11-13-2024 End: 53-86-1610toegfquzasXELA CI PTComment on above:ArrivedStart: 11-08-2024 End: 24-18-2653Lnoihtu encounter procedureNOMS SWS DERMComment on above:Arrived Start: 11-06-2024 End: 24-19-7812ghbzfvtymmVBND CI PTComment on above:ArrivedStart: 10-30-2024 End: 77-29-7453nxpcoqwsea84/30/2024 11:00 AM EST Evaluation NOMS CI PT [address] [facility] [address] [place] [address] Kathryn Flynn, SOBEIDA ArrivedNOMS CI PTComment on above:ArrivedStart: 10-04-2024 End: 63-41-3448Gksmojv encounter eyibcdsgp62/04/2024 4:00 PM EST Office Visit Neurology [address] [place] [address] Simona Carlson APRN.LABOR REPRESENTATIVE [address] [place] [address] Reason for visit: Specialist In - Person Office Visit NeurologyComment on above:Reason for visit: Specialist In - Person Office Visit Start: 08-30-2024 End: 14-05-2005Vhleopz encounter yjmezaiiv35/30/2024 3:30 PM EDT Office Visit [facility]OMS SWS DERM [address] [place] [address] Sanjay Hawkins PA [address] [place] [address] ArrivedNOMS SWS DERMComment on above:ArrivedStart: 07-44-9233Lrkwq-19 Vaccine ( season)Covid-19 Vaccine ()[facility]: 64-63-9879Bsbqt-19 Vaccine () Covid-19 Vaccine ()[facility]: 67-49-1604Clbiluuyx vaccinationBarney Children's Medical Centertart: 03-29-2024 End: 71-34-4823Crqwyuu encounter /29/2024 4:00 PM EDT Office Visit Neurology [address] [facility] [address] [place], [place] [address] Simona Carlson APRN.LABOR REPRESENTATIVE [address] [place] [address] Return in about 4 months (around 03/26/2024).NeurologyComment on above:Return in about 4 months (around 03/26/2024).Start: 03-03-2024 End: 35-40-2556Hiluzzp encounter /03/2024 12:00 PM EDT Appointment Radiology [address] [place] [address] MRIBRAIN WO IVCON RadiologyComment on above:MRI BRAIN WO IVCONStart: 09-03-7520Mikwuxmrsw AssessmentDepression AssessmentBarney Children's Medical Centertart: 68-51-3056Jcget depression screening assessmentDEPRESSION SCREENINGBarney Children's Medical Centertart: 94-20-5580Kcwxn- 19 Vaccine ( season)Covid-19 Vaccine ( season)[facility]: 08-27-2262Lzxzdkhfn vaccinationInfluenza Vaccine (#1)[facility]: 91-52-3754IZPFMDOYOZ ASSESSMENTDEPRESSION ASSESSMENTCleSelect Medical [facility], Avontart: 64-58-4863Dbtbemcgg vaccinationINFLUENZA (#1)[facility]: 41-76-0816NDPMRJJZEX ASSESSMENTDEPRESSION ASSESSMENTBarney [facility]'s Medical Centertart: 62-25-2934Kynlvvtocvpz Vaccine: 50+ (1 of 1 - PCV)Pneumococcal Vaccine: 50+ (1 of 1 - PCV)[facility]: 76-62-5892FDRFKYWV VACCINE (1 of 2)SHINGRIX VACCINE (1 of 2)[facility]: 22-73-9819ULXNYMQJE (FIT-DNA)COLOGUARD (FIT-DNA)[facility]: 24-43-1763FmrgfvwvebmGYYCOBSBGKAEqajjldwg Clinic Start: 03-41-7777OHRJHQIWYN CANCER SCREENINGCOLORECTAL CANCER SCREENINGBar[facility] Children[facility] Medical Centertart: 21-80-9624AV COLONOGRAPHYCT COLONOGRAPHYBarney Children's Medical Centertart: 49-45-0457BXXAVQOR SCREENDIABETES SCREENBarney Children's Medical Centertart: 2012 Diabetes ScreeningDiabetes ScreeningBarney Children's Medical Centertart: 15-06-4161THXUJ OCCULT BLOODFECAL OCCULT BLOODBarney Children's Medical Centertart: 55-60-5630Hireq 1996 panel - Serum or PlasmaLipid ScreeningBarney Children's Medical Centertart: 07-32-5085Ppuih panel Lipid ScreeningBarney Children's Medical Centertart: 67-20-0163MFXMA SCREENLIPID SCREEN [facility]: 33-63-9811Ltvxgmtqg for malignant neoplasm of colon [facility]: 46-65-0587MUUYYCNRZLLAVFKONBAGIGYKVRQwwophkuo Clinic Start: 53-54-5030FpfxfovuepeFcojeavue ClinicStart: 41-85-8427Qmgawqgxe for malignant neoplasm of breastMammogram ScreeningBarney Children's Medical Centertart: 1997 HPV TESTINGHPV TESTINGBarney Children's Medical Centertart: 73-99-4631Dpyqkcgjr for malignant neoplasm of cervixHPV TestingBarney Children's Medical Centertart: 23-66-5719QYH TESTINGPAP TESTINGBarney Children's Medical Centertart: 89-35-7367Euskplbdx for malignant neoplasm of cervixBarney Children's Medical Centertart: 34-02-5679Wyfgqorou B Vaccine (1 of 3 - 19+ 3-dose series)Hepatitis B Vaccine (1 of 3 - 19+ 3-dose series)[facility]: 92-81-5042Kbpzs microalbumin profileBarney Children's Medical Centertart: 04-67-6093Fafewzn ScreeningAnxiety ScreeningBarney Children's Medical Centertart: 98-96-7129Ezvessupmx Screening Depression ScreeningBarney Children's Medical Centertart: 51-73-8908DBUCJZNJX C SCREENING HEPATITIS C SCREENINGBarney Children's Medical Centertart: 14-26-0557Gvxxhttcx C screening Hepatitis C ScreeningBarney Children's Medical Centertart: 70-20-0828XRO SCREENINGHIV SCREENING [facility]: 29-40-2339TPM screeningHIV ScreeningUniversity Hospitals Geauga Medical Center Start: 62-40-3697DWDPJ-19 VACCINE (#1)COVID-19 VACCINE (#1)[facility] Start: 79-42-8877TATJHUHJF B (1 of 3 - 3-dose series)HEPATITIS B (1 of 3 - 3- dose series)[facility]: 71-44-6852Rypiuszzc B Vaccine (1 of 3 - 3- dose series)Hepatitis B Vaccine (1 of 3 - 3-dose series)[facility] Comprehensive metabolic 1999 panel - Serum or [facility] CenterComprehensive metabolic 1999 panel - Serum or [facility] CenterComprehenve metabolic 1999 panel - Serum or [facility] CenterInsulin [Units/volume] in Serum or [facility] CenterMG Breast - bilateral ScreeningChillicothe Va Medical Center End: 98-36-0782MN Brain WO contrastMRI BRAIN WO IVCON Radiology Routine Thunderclap headache 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 starting 01/07/2024 until 02/05/2025[facility] Work Phone: Comment on above:1 Occurrences starting 01/07/2024 until 02/05/2025 End: 09-34-3228OJV Head vessels WO contrastMRA BRAIN WO IVCON Radiology Routine Thunderclap headache 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 [facility] 01/07/2024 [facility] Work Phone: Comment on above:1 Occurrences starting 01/07/2024 until 02/05/2025 End: 18-45-0357Ksg spinal canal cervical w/o contrast matrlMRI CERVICAL SPINE WO IVCON Radiology Routine Cervicalgia History of fusion of cervical spine Cervic al spondylosis 1 Occurrences starting 09/28/2022 until [facility] Work Phone: Comment on above:1 Occurrences starting 09/28/2022 until 3Patient EducationKnow your [facility] Work Phone: Renal function 2000 panel - Serum or PlasmaChillicothe Va Medical CenterUrine cultureChillicothe Va Medical CenterXR Shoulder - left ViewsSaint Thomas - [facility] Payers DatePayer CategoryPayerPolicy [id number]-hoy [id number] Cross Blue Shield [id number]MF BLUE CARD PPO OOS [id number] 2019-Present [phone] [address] [place], [place] [address]LUT3.2.840.933685.1.13.159.2.7.3.598[id number] 2..1.387948.3.579.2.59461-11-8638Nssyuym8632751 2..1.804770.3.579.2.80605-03-2373Iibvljm5206806 2..1.815431.3.579.2.42968-06-8642Ndknfkb8311482 2..1.608355.3.579.2.01963-47-9111Wjvagio1782920 2..1.160067.3.579.2.47558-38-2822Odskpwd6599651 2..1.737446.3.579.2.39618-04-2100Ahdkpav5038341 2.16.840.1.375360.3.579.2.62314-22-5143Qgeoilo0770808 2.16840.1.601990.3.579.2.87209-84-0376Gjulzrv9379368 2.16840.1.581596.3.579.2.52349-42-0306Gfzuisg7948197 2.0.1.373283.3.579.2.02484-38-6398Kjobozw72892551 2.0.1.892050.3.579.2.323255-30-8982Ryxznyp56859116 2..1.973353.3.579.2.001062-58-7184Qcxibki50186483 2..1.568405.3.579.2.259708-96-1048Prmqpvx43296163 2..1.935605.3.579.2.636703-46-0720Vyurhqb29397926 2..1.441957.3.579.2.782452-17-7091Bamralg06014937 2.0.1.269550.3.579.2.624890-04-8981Wbpacbe0871308 2..1.650944.3.579.2.902897-71-7875Iztjjqi3087827 2.0.1.180885.3.579.2.162720-28-9043Ywydypb6991010 2.0.1.699439.3.579.2.887706-17-4326Sgejgaa9389353 2.840.1.054805.3.579.2.861049-74-9257Rznximo7814686 2.840.1.997539.3.579.2.264866-88-9943Faekjeb2918422 2.16.840.1.199119.3.579.2.174631-68-8296Hzxmmpa0832377 2.16840.1.443448.3.579.2.659957-28-2154Gsbldcv8080575 2.16840.1.647204.3.579.2.333865-22-4428Rjfflxo6770943 2.16840.1.564598.3.579.2.920131-98-7070Etzhshw4254492 2.840.1.131984.3.579.2.176582-35-1611Qjuomzg5851327 2.840.1.091850.3.579.2.056356-42-6351Kqojeqx2627572 2.840.1.507729.3.579.2.843750-38-1896Ubphqto3621819 2.0.1.392748.3.579.2.577882-01-2968Gzlibyc2353778 2.0.1.016185.3.579.2.923330-70-4939Utkfxhl7340612 2.840.1.711713.3.579.2.300005-46-7699Qnfraar1396418 2.840.1.747965.3.579.2.164253-92-4606Rxmrqlg6053228 2.840.1.106487.3.579.2.900166-60-8104Nxactcq5661076 2.840.1.402012.3.579.2.574637-21-0909Lioagqi6604551 2.16840.1.330158.3.579.2.721827-18-8878Pzkkjau3422616 2.16840.1.307613.3.579.2.863504-67-5426Bragebv6294550 2..1.559690.3.579.2.452523-22-7931Nscgadg3741459 2..1.292482.3.579.2.476487-94-3110Kwsqhqi3861409 2..1.507240.3.579.2.444268-69-2265Zadxprq2020927 2..1.338942.3.579.2.669601-57-9966Ldlvsvz5903308 2..1.186051.3.579.2.558613-21-7983Ptpiqot1978492 2..1.818646.3.579.2.671663-78-4787Rqflnoc2948650 2..1.423995.3.579.2.430189-29-6473Xgwynpe0040619 2..1.585362.3.579.2.300660-69-2724Aplx Cross Blue VigvmgLOS781798329 2..1.100599.18Quykjiv794235774 983w9m12-g6f8-5922-97c7-481kl528fa3kZuglheq 41648408 2..1.160493.3.579.2.503Bdjriih62596773 2..1.342505.3.579.2.994Stwikeu67162819 2..1.611846.3.579.2.531 Xqdfren59923136 2.0.1.406029.3.579.2.521Zsofrqb93612790 2.0.1.984911.3.579.2.272Qyrvwak50232728 2.0.1.800994.3.579.2.531 Wavuwos53601981 2.16.840.1.907771.3.579.2.531 Social History DateTypeDetailFacilityUnknown if ever smokedNorth Lamsa Other Start: 11-16-2022 End: 00-05-3603Gbo [facility]igned [facility]: 80-55-0263Lys [facility]igned At [facility]: 01-31-2018 End: 03-23-1409Bgfhqhm smoking status NHISNever smoked tobaccoUniversity Hospitals Geauga Medical Center Start: 01-31-2018 End: 13-71-3049Rwyflbp use and exposureSmokeless tobacco non-userBarney Children's Medical Centertart: 01-29-2021 End: 82-30-0114Sgxejwp intakeCurrent drinker of alcohol (finding)[facility]ertart: 63-64-5832Buhpebd SDOH Alcohol CommentInfrequentUniversity Hospitals Geauga Medical Center Start: 37-79-8685Htt Assigned At BirthNot on fileBarney Children's Medical Centertart: 07-14-2022 End: 43-01-6920Riifurjq to SARS-CoV-2 (event)Not sureBarney Children's Medical Centertart: 11-16-2022 End: 61-33-7015Gasatdw of Social functionBarney Children's Medical Centertart: 39-94-2020Jdkue Depression Screening Xqupjoydqs8Omiqyugfq ClinicTobacco smoking status NHIS Tobacco smoking consumption unknownDoctors Hospital of SpringfieldStart: 11-16-2024 End: 27-17-8890OeiEckokp (finding)[facility] Medical Equipment Procedure CodeEquipment CodeEquipment Original TextEquipment IdentifierDates Tendon/ligament bone anchor, bioabsorbable [id number] FDAStart: 01-10-2025 Goals DatePatient GoalDesired Activity/State Clinical Notes 08-25-2021 to 07-12-2025 Note Date & NwywTylbVeblczln18-35-3516 Telephone encounter Note* Telephone Encounter - Natalia Martínez - 07/12/2025 1:47 PM EDT Patient last seen on 04/04/25 [facility]09-11-2025 Miscellaneous Notes* Telephone Encounter - Natalia Martínez - 07/12/2025 1:47 PM EDT Patient last seen on 04/04/25 documented in this encounterUniversity Hospitals Geauga Medical Center08-27-2025 Evaluation note* Author Anand Garcia [facility] SystemhoredSina 2024 3:13pmThe above note written by ___Gilbert Bill____ acting as human recorder, note dictated by Dr. Stiles .I performed the above HPI, ROS, and Examination. I formulated and dictated the treatment plan and was present for entire encounter. Anand Garcia D.O. [facility] Work Phone: 1(445) 980-427308-21-2025 Telephone encounter Note* Telephone Encounter - Philomena Carey [facility] - 06/21/2025 2:51 PM EDT Pharmacist Managed Refill Encounter Name: Myrtle Jones Refill authorization request(s) received and reviewed under effective consult agreement. The patient consented to the pharmacy service and agreed to allow medications to be collaboratively managed bythe pharmacist. The patient may decline or cancel [...] in this encounter: 1 Philomena Carey RPh [facility]08-21-2025 Miscellaneous Notes* Telephone Encounter - Philomena Carey RPh - 06/21/2025 2:51 PM EDT Pharmacist Managed Refill Encounter Name: Myrtle Jones Refill authorization request(s) received and reviewed under effective consult agreement. The patient consented to the pharmacy service and agreed to allow medications to be collaboratively managed bythe pharmacist. The patient may decline or cancel [...] 1 Philomena Carey RPh documented in this encounterUniversity Hospitals Geauga Medical Center06-23-2025 Evaluation note* Diagnosis Onset Date Resolution Status Admit Date Biceps tendinitis of left shoulder acuteJune 2024 11:02amStatus post arthroscopy of left shoulderacuteJune 2024 11:02amTendonitis of left rotator cuffacuteJune 2024 11:02am Trigger finger, right middle fingeracuteJune 2024 11:02amBiceps tendinitis of left shoulderacuteJuly 2024 8:52amStatus post arthroscopy of left shoulderacuteJuly 2024 8:52amTendonitis of left rotator cuffacuteJuly 2024 8:52amTrigger finger, right middle fingeracuteJuly 2024 8:52am UTI (urinary tract infection)acuteAugust 2024 11:24am [facility] Work Phone: 1(893) 955-222806-23-2025 Evaluation note* Diagnosis Onset Date Resolution Status Admit Date Biceps tendinitis of left shoulder acuteJune 2024 11:02amStatus post arthroscopy of left shoulderacuteJune 2024 11:02amTendonitis of left rotator cuffacuteJune 2024 11:02am Trigger finger, right middle fingeracuteJune 2024 11:02amBiceps tendinitis of left shoulderacuteJuly 2024 8:52amStatus post arthroscopy of left shoulderacuteJuly 2024 8:52amTendonitis of left rotator cuffacuteJuly 2024 8:52amTrigger finger, right middle fingeracuteJuly 2024 8:52am UTI (urinary tract infection)acuteAugust 2024 11:24amBen hy kid w cr kid I-IVacuteAugust 2024 2:35pmDegenerative disc disease, cervicalacuteAugust 2024 2:35pmHyperglycemiaacuteAugust 2024 2:35pmHypertriglyceridemia acuteAugust 2024 2:35pmStatus post arthroscopy of left shoulderacuteAugust 2024 2:35pmUTI (urinary tract infection)acuteAugust 2024 2:35pm [facility] Work Phone: 1(582) 120-292206-04-2025 History of Present illness Narrative* Simona Carlson APRN.[facility] - 04/04/2025 4:00 PM EDT Images from [...] more migraines over the past few months. Everyone Counts is working about 80% of the time. [...] treatment: Qulipta, Propranolol, Magnesium Current abortive treatment: Everyone Counts (works about 80% of the time), Excedrin Relieving factors: Medication, laying down, rest/sleep Aura: scotoma (Squiggly lines. Lasts about 30 minutes.) Denies any change in typical migraine/headache pattern. Prior Therapies Duration of Use Dose Reason for Discontinuation Other Therapies Nerve blocks Analgesic Butalbital/acetaminophen/caffeine (Fioricet) Hydrocodone/Acetaminophen (Vicodin, [place]) Anti-Convulsant Topiramate (Topamax, Trokendi XL, Qudexy) Anti-Depressant [...] these with the patient: Yes, Simona Carlson APRN.LABOR REPRESENTATIVE HEADACHE SCORES: 03/22/2024 10/01/2024 03/28/2025 Headache Questions [...] Patent intracranial cerebral arterial circulation by MRA. Resident Caregiver: PSCPayton Transcribe Date/Time: Mar 03 2024 1:06P Dictated [...] vertebrae with counting from the craniocervical junction. Resident Caregiver: ELEAZAR Transcribe Date/Time: Nov 16 2022 11:21A [...] Overuse Headache: Analgesic Butalbital/acetaminophen/caffeine (Fioricet) Hydrocodone/Acetaminophen (Vicodin, [place]) Anti-Migraine Dihydroergotamine (DHE-45, Migranal) Rizatriptan (Maxalt) Sumatriptan [...] Overuse Headache: Analgesic Butalbital/acetaminophen/caffeine (Fioricet) Hydrocodone/Acetaminophen (Vicodin, [place]) Anti-Migraine Dihydroergotamine (DHE-45, Migranal) Rizatriptan (Maxalt) Sumatriptan [...] year, PRN Level of service: Est level 3 (20-29 min). Time spent 20 min on the day of service, which included preparing to see the patient, wkul-rl-fqkz patient care, completing clinical documentation, obtaining and/or reviewing separately obtained history, performing a medically appropriate examination, and counseling and educating the patient/family/caregiver. Simona Carlson APRN.QUIQUE documented in this encounterUniversity Hospitals Geauga Medical Center06-04-2025 NoteHNO ID: [id number] Author: SIMONA CARLSON APRN.QUIQUE Service: ? Author [...] Follow-up Impression and Plan from last visit: [facility] 10/04/2024 with Me. Myrtle Jones is a 59-year-old female with history significant for chronic migraine, chronic neck pain (s/p fusion x2), occipital neuralgia and HTN. At her last visit she was to continue Qulipta and Ubrelvy. Interval Headache History: A few more migraines over the past few months. Everyone Counts is working about 80% of the time. [...] treatment: Qulipta, Propranolol, Magnesium Current abortive treatment: Everyone Counts (works about 80% of the time), Excedrin Relieving factors: Medication, laying down, rest/sleep Aura: scotoma (Squiggly lines. Lasts about 30 minutes.) Denies any change in typical migraine/headache pattern. Prior Therapies Duration of Use Dose Reason for Discontinuation Other Therapies Nerve blocks Analgesic Butalbital/acetaminophen/caffeine (Fioricet) Hydrocodone/Acetaminophen (Vicodin, [place]) Anti-Convulsant Topiramate (Topamax, Trokendi XL, Qudexy) Anti-Depressant [...] these with the patient: Yes, Simona Carlson APRN.LABOR REPRESENTATIVE HEADACHE SCORES: 03/22/2024 10/01/2024 03/28/2025 Headache Questions [...] have a botox i (more content not included)...[facility]05-20-2025 Evaluation note* Author Anand Garcia [facility] Medical CenterAuthoredMay 2024 3:03pmThe above note written by ___Gilbert Bill____ acting as human recorder, note dictated by Dr. Stiles .I performed the above HPI, ROS, and Examination. I formulated and dictated the treatment plan and was present for entire encounter. Anand Garcia D.O. [facility] Work Phone: 1(959) 449-893605-20-2025 History of Present illness Narrative* Kathryn Flynn, [...] pain today is in left elbow. Precautions: [place] Subjective: Pt states still having pain in left shoulder with active movement. States was a little sore following last session. Pain: 2/10 Objective: PT Evaluation (01/12/2025) Left SHOULDER AROM: [...] to be instructed in home exercise program. 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 Date: documented in this encounterDoctors Hospital of SpringfieldJxckslytjq14-64-3674 History of Present illness Narrative* Kathryn Flynn, [...] pain today is in left elbow. Precautions: [place] Subjective: Pt states she noticed swelling in [...] to be instructed in home exercise program. 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 Date: documented in this encounterDoctors Hospital of SpringfieldLjghdptqis92-80-1977 History of Present illness Narrative* Kathryn Flynn [...] pain today is in left elbow. Precautions: [place] Subjective: Pt presents 4 weeks post op [...] to be instructed in home exercise program. 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 Date: documented in this encounterDoctors Hospital of SpringfieldVvngzqwvyn77-46-3564 History of Present illness Narrative* Kathryn Flynn, [...] pain today is in left elbow. Precautions: [place] Subjective: Pt presents 4 weeks post op [...] to be instructed in home exercise program. Prison Goals: To be met in 10 weeks [...] Please sign below. Date: documented in this [facility]02-18-2025 Evaluation note* Author Anand Garcia [facility] 2024 3:58pmThe above note written by ___Gilbert Bill____ acting as human recorder, note dictated by Dr. Stiles .I performed the above HPI, ROS, and Examination. I formulated and dictated the treatment plan and was present for entire encounter. Anand Garcia D.O. [facility] Work Phone: 1([phone]) 308-978502-18-2025 Evaluation note* Author Anand Garcia [facility] CenterAuthoredbruary 2024 2:58pmThe above note written by ___Gilbert Bill____ acting as human recorder, note dictated by Dr. Stiles .I performed the above HPI, ROS, and Examination. I formulated and dictated the treatment plan and was present for entire encounter. Anand Garcia D.O. [facility] Work Phone: 1(244) 333-323202-10-2025 History of Present illness Narrative* Kathryn Flynn, [...] with 2 hands to shoulder level. Precautions: [place] Subjective: Pt states for some reason left shoulder has been hurting more lately. Still doing exercises at home but has discontinued use of weights. Will see next week and would like to hold PT until his recommendation. Follow up Dec 18 w/ Ortho. Pain: 5-6/10 Objective: PT Evaluation (10/30/2024) Left SHOULDER AROM: [...] to be instructed in home exercise program. 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 Date: documented in this [facility]01-08-2025 History of Present illness Narrative* JACOB Mcknight [...] Next Visit: 1 year documented in this encounterDoctors Hospital of SpringfieldWxexmygyky80-06-2129 History of Present illness Narrative* Kathryn Flynn, [...] with 2 hands to shoulder level. Precautions: [place] Subjective: Left shoulder Pain: 310 Objective: PT Evaluation (10/30/2024) Left SHOULDER AROM: [...] to be instructed in home exercise program. Prison Goals: To be met in 10 weeks [...] Please sign below. Date: documented in this encounterDoctors Hospital of SpringfieldDeusxwpvno24-15-9063 Telephone encounter Note* Telephone Encounter - Jacy Cueva - 10/11/2024 11:50 AM EST Ambulatory Pharmacy Prior Authorization Note Provider Intervention Required?: No- Pharmacy completed on your behalf. Rx Plan: Other: [facility] Drug: NURTEC ODT 75 mg disintegrating tablet Cover My Meds Palafox: Done via Epic Determination: Approved Prior Authorization/Case #: [id number] Prior Authorization Expiration: 10/10/2025 Time to PA [...] refills. Prescriptions will now be processed through [facility] for determination of next steps. For questions relating to this submission, please contact [facility] at [phone] [facility]12-11-2024 Miscellaneous Notes* Telephone Encounter - Jacy Cueva - 10/11/2024 11:50 AM EST Ambulatory Pharmacy Prior Authorization Note Provider Intervention Required?: No- Pharmacy completed on your behalf. Rx Plan: Other: [facility] Drug: NURTEC ODT 75 mg disintegrating tablet Cover My Meds Palafox: Done via Epic Determination: Approved Prior Authorization/Case #: [id number] Prior Authorization Expiration: 10/10/2025 Time to PA [...] refills. Prescriptions will now be processed through [facility] for determination of next steps. For questions relating to this submission, please contact [facility] at [phone] documented in this encounterUniversity Hospitals Geauga Medical Center12-04-2024 Instructions* Patient Instructions* Simona Carlson APRN.CNP - 10/04/2024 4:19 PM EST Rimegepant (Nurtec) - 75 mg ODT Take 1 tablet at onset of headache/migraine. Only take 1 tablet as single dose in 24 hour period. Potential side effects include nausea. documented in this encounterUniversity Hospitals Geauga Medical Center12-04-2024 History of Present illness Narrative* Simona Carlson [...] Nerve blocks Analgesic Butalbital/acetaminophen/caffeine (Fioricet) Hydrocodone/Acetaminophen (Vicodin, [place]) Anti-Convulsant Topiramate (Topamax, Trokendi XL, Qudexy) Anti-Depressant [...] these with the patient: Yes, Simona Carlson APRN.LABOR REPRESENTATIVE HEADACHE SCORES: 11/22/2023 03/22/2024 10/01/2024 Headache Questions [...] Patent intracranial cerebral arterial circulation by MRA. Resident Caregiver: ELEAZAR Transcribe Date/Time: Mar 03 2024 1:06P [...] vertebrae with counting from the craniocervical junction. Resident Caregiver: ELEAZAR Transcribe Date/Time: Nov 16 2022 11:21A [...] Overuse Headache: Analgesic Butalbital/acetaminophen/caffeine (Fioricet) Hydrocodone/Acetaminophen (Vicodin, [place]) Anti-Migraine Dihydroergotamine (DHE-45, Migranal) Rizatriptan (Maxalt) Sumatriptan [...] Overuse Headache: Analgesic Butalbital/acetaminophen/caffeine (Fioricet) Hydrocodone/Acetaminophen (Vicodin, [place]) Anti-Migraine Dihydroergotamine (DHE-45, Migranal) Rizatriptan (Maxalt) Sumatriptan [...] which included preparing to see the patient, [id number] patient care, completing clinical documentation, obtaining and/or reviewing separately obtained history, performing a medically appropriate examination, counseling and educating the patient/family/caregiver, and ordering medications, tests, or procedures. Simona Carlson APRN.LABOR REPRESENTATIVE documented in this encounterUniversity Hospitals Geauga Medical Center12-04-2024 NoteHNO ID: [id number] Author: SIMONA CARLSON APRN.LABOR REPRESENTATIVE Service: ? Author Type: Nurse Practitioner Type: [...] Follow-up Impression and Plan from last visit: [facility] 03/29/2024 with Me. yMrtle Jones is a 59-year-old female with history [...] Nerve blocks Analgesic Butalbital/acetaminophen/caffeine (Fioricet) Hydrocodone/Acetaminophen (Vicodin, [place]) Anti-Convulsant Topiramate (Topamax, Trokendi XL, Qudexy) Anti-Depressant [...] these with the patient: Yes, Simona Carlson APRN.LABOR REPRESENTATIVE HEADACHE SCORES: 11/22/2023 03/22/2024 10/01/2024 Headache Questions [...] Not applicable, I did not have a marilee (more content not included)...[facility]11-20-2024 Evaluation note* Author Anand Garcia [facility] CenterAuthoredNovember 2023 6:41pmI performed the above HPI, ROS, and Examination. I formulated and dictated the treatment plan and was present for entire encounter. Anand Garcia D.O. [facility] Work Phone: [phone]) 818-205510-30-2024 History of Present illness Narrative* JACOB Mcknight [...] Next Visit: 2 months documented in this encounterDoctors Hospital of [id number] Telephone encounter Note* Telephone Encounter - Salma Callejas RN - 07/24/2024 8:54 AM EDT Ambulatory Pharmacy Prior Authorization Note Provider Intervention Required?: No- Pharmacy completed on your behalf. Rx Plan: Other: [facility] Drug: Qulipta 60MG tablets Cover My Meds Palafox: [id number] Determination: Approved Prior Authorization/Case #: [id number] Prior Authorization Expiration: 07/20/2025 Time to PA [...] refills. Prescriptions will now be processed through [facility] for determination of next steps. For questions relating to this submission, please contact [facility] at [phone] [facility] Work Phone: 1(445) 543-837009-23-2024 Miscellaneous Notes* Telephone Encounter - Salma Callejas RN - 07/24/2024 8:54 AM EDT Ambulatory Pharmacy Prior Authorization Note Provider Intervention Required?: No- Pharmacy completed on your behalf. Rx Plan: Other: [facility] Drug: Qulipta 60MG tablets Cover My Meds Palafox: [id number] Determination: Approved Prior Authorization/Case #: [id number] Prior Authorization Expiration: 07/20/2025 Time to PA [...] refills. Prescriptions will now be processed through [facility] for determination of next steps. For questions relating to this submission, please contact [facility] at [phone] * Telephone Encounter - Salma Callejas RN - 07/20/2024 4:56 PM EDT [facility] received prescription(s) for Qulipta 60MG tablets . Benefits investigation was conducted, indicating that a prior authorization is required. PA was initiated and pending review through [employer]. All pertinent clinical information was submitted to insurance. PA done via: [facility]- Palafox [id number] Salma Callejas RN [facility] P: , F: documented in this encounterUniversity Hospitals Geauga Medical Center09-19-2024 Telephone encounter Note * Telephone Encounter - Salma Callejas RN - 07/20/2024 4:56 PM EDT [facility] received prescription(s) for Qulipta 60MG tablets . Benefits investigation was conducted, indicating that a prior authorization is required. PA was initiated and pending review through [employer]. All pertinent clinical information was submitted to insurance. PA done via: [employer]- Palafox [id number] Salma Callejas RN [facility] P: , F: [facility]08-21-2024 Evaluation note* Author Anand Garcia [facility] 2023 3:31pmThe above note written by ___Gilbert Bill____ acting as human recorder, note dictated by Dr. Stiles .I performed the above HPI, ROS, and Examination. I formulated and dictated the treatment plan and was present for entire encounter. Anand Garcia D.O. [facility] Work Phone: [phone]) 391-450708-09-2024 Telephone encounter Note* Telephone Encounter - Simona Carlson APRN.[facility] - 06/09/2024 11:38 AM EDT The following approved medication requests have been transmitted electronically. Requested Prescriptions Signed Prescriptions Disp Refills atogepant (QULIPTA) 60 mg tablet 30 tablet 11 Sig: Take 1 tablet (60 mg) by mouth once daily. Authorizing Provider: SIMONA CARLSON APRN.CNP June 09, 2024 11:38 AM [facility]08-09-2024 Miscellaneous Notes* Telephone Encounter - Simona Carlson [...] Name: [facility] documented in this encounterUniversity Hospitals Geauga Medical Center08-09-2024 Telephone encounter Note * Telephone Encounter - [...] once daily. Pharmacy Name: [facility]2024 History of Present illness Narrative* Simona Carlson APRN.LABOR REPRESENTATIVE - 03/29/2024 4:00 PM EDT Images from [...] Follow-up Impression and Plan from last visit: [facility] 11/26/[address] Robles. Myrtle Jones [...] Nerve blocks Analgesic Butalbital/acetaminophen/caffeine (Fioricet) Hydrocodone/Acetaminophen (Vicodin, [place]) Anti-Convulsant Topiramate (Topamax, Trokendi XL, Qudexy) Anti-Depressant [...] these with the patient: Yes, Simona Carlson APRN.LABOR REPRESENTATIVE HEADACHE SCORES: 07/14/2023 11/22/2023 03/22/2024 Headache Questions [...] Patent intracranial cerebral arterial circulation by MRA. Resident Caregiver: ELEAZAR Transcribe Date/Time: Mar 03 2024 1:06P [...] vertebrae with counting from the craniocervical junction. Resident Caregiver: [facility] Transcribe Date/Time: Nov 16 2022 11:21A Dictated [...] Overuse Headache: Analgesic Butalbital/acetaminophen/caffeine (Fioricet) Hydrocodone/Acetaminophen (Vicodin, [place]) Anti-Migraine Dihydroergotamine (DHE-45, Migranal) Rizatriptan (Maxalt) Sumatriptan [...] Overuse Headache: Analgesic Butalbital/acetaminophen/caffeine (Fioricet) Hydrocodone/Acetaminophen (Vicodin, [place]) Anti-Migraine Dihydroergotamine (DHE-45, Migranal) Rizatriptan (Maxalt) Sumatriptan [...] which included preparing to see the patient, [id number] patient care, completing clinical documentation, obtaining and/or reviewing separately obtained history, performing a medically appropriate examination, and counseling and educating the patient/family/caregiver. Simona Carlson APRN.LABOR REPRESENTATIVE documented in this encounterUniversity Hospitals Geauga Medical Center05-03-2024 Miscellaneous Notes* [facility] - Elo Dunaway [...] PATIENT PRESENTS WITH AN IMPLANTABLE OR ATTACHED ADMITTING COORDINATOR: No RADIOLOGY DEPARTMENT: MR; Exam(s) Completed: Head: Routine Brain [place] MRA PERIPHERAL IV DATA: Not applicable SIGNED BY: WILBUR Jansen March 03, 2024 12:42 PM documented in this encounterUniversity Hospitals Geauga Medical Center05-03-2024 Progress note* Jocelyne [facility] - Elo Dunaway MRI Tech - 03/03/2024 [...] PATIENT PRESENTS WITH AN IMPLANTABLE OR ATTACHED ADMITTING COORDINATOR: No RADIOLOGY DEPARTMENT: MR; Exam(s) Completed: Head: Routine Brain [place] MRA PERIPHERAL IV DATA: Not applicable SIGNED BY: WILBUR Jansen March 03, 2024 12:42 PM [facility]05-02-2024 Telephone encounter Note* Telephone Encounter - Deb Jernigan - 03/02/2024 2:19 PM EDT Appointment reminder call-spoke with patient -gave directions to office [facility]05-02-2024 Miscellaneous Notes* Telephone Encounter - Deb Jernigan - 03/02/2024 2:19 PM EDT Appointment reminder call-spoke with patient -gave directions to office documented in this encounterUniversity Hospitals Geauga Medical Center02-23-2024 Miscellaneous Notes* Telephone Encounter - Katia Alexander - 12/24/2023 10:39 AM EST Completed over [facility]: MYRTLE JONES Palafox: [id number] - JACOB Drug Ubrelvy 100MG tablets Form [place] 2,10E+07 [facility] [email or web address] Electronic PA Form (2016 [facility]) Approvedtoday Your request was approved based on the initial information provided at the time of the coverage request submission. Please allow additional time for the final decision to be made and added to the patient's account. Katia Alexander documented in this encounterUniversity Hospitals Geauga Medical Center02-23-2024 Miscellaneous Notes* Telephone Encounter - Katia Alexander - 12/24/2023 10:24 AM EST Completed PA over CMM: MYRTLE JONES Palafox: [id number] - [place] Drug Qulipta 60MG tablets Form [facility] [email or web address] Electronic PA Form (2016 [place]) Approvedtoday Your request was approved based on the initial information provided at the time of the coverage request submission. Please allow additional time for the final decision to be made and added to the patient's account. Katia Alexander documented in this encounterUniversity Hospitals Geauga Medical Center02-22-2024 Miscellaneous Notes* Telephone Encounter - Radha Evelyne - 12/23/2023 11:12 AM EST Patient last seen on 11/26/23. documented in this encounterUniversity Hospitals Geauga Medical Center12-20-2023 Miscellaneous Notes* Telephone Encounter - Salma Callejas RN - 10/20/2023 1:25 PM EST Ambulatory Pharmacy Prior Authorization Note Provider Intervention Required?: No- Pharmacy completed on your behalf. Rx Plan: Other: [facility] Drug: Aimovig 140MG/ML auto-injectors Cover My Meds Palafox: [id number] Determination: Approved Prior Authorization/Case #: [id number] Prior Authorization Expiration: 10/16/2024 Time to PA [...] refills. Prescriptions will now be processed through [facility] for determination of next steps. For questions relating to this submission, please contact [facility] at [phone] * Telephone Encounter - Salma Callejas RN - 10/13/2023 12:52 PM EST [facility] received prescription(s) for Aimovig 140MG/ML auto-injectors. Benefits investigation was conducted, indicating that a prior authorization is required. PA was initiated and pending review through [employer]. All pertinent clinical information was submitted to insurance. [facility] Palafox: [id number] Ordering Provider: Cresencio Robles DO Murtaugh, Alisha, RN [facility] P: , F: documented in this encounterUniversity Hospitals Geauga Medical Center11-13-2023 Evaluation note* Encounter Date Diagnosis Assessment Notes Treatment Notes Treatment Clinical Notes Sep, Hypertriglyceridemia (ICD-10 - E 78.1) She started the Rosuvastatin in June (2022) and had lab drawn in July (2022) to be sure medication was not affecting her liver. Her liver enzymes are now slightly elevated. Her total cholesterol was 144. HDL was 43. LDL was 64. Triglycerides are 185. VLDL was 37. I would like her to continueto monitor her intake of carbs and sugars. Stay active. I am going to have her cautiously continue with the Rosuvastatin. If her eyes turn yellow she should stop the medication. She should have a hepatic and hepatitis panel done and an ultrasound of the liver done. Sep,Elevated liver function tests (ICD-10 - R94.5)We discussed that in July (05/26) and November () (2022) her AST/ALT were normal. When just checked her AST was 38 and her ALT was 66. If these are high it indicates the liver is irritated. Recommend we order a blood test to be sure she does not have hepatitis. She has never been an IV druguser and has never had a blood transfusion prior to 1984. I will order an ultrasound of the liver to rule out fatty liver. If she does have fatty liver then we will need to discuss this further. If she does have this then she will need to cut out her intake of carbs. Sep,Hyperglycemia (ICD-10 - R73.9)Discussed blood sugar results with patient today. Glucose is 100. HgA1C is 5.7. Again, continue to monitor intake of carbs and sugars. Stay active. Sep,egenerative disc disease, cervical (ICD-10 - M50.30)She does continue to use the above medication [...] including the use of non-opiod analgesics and non-pharmacological intervention with patient if [...] current substance abuse treatments are being prescribed. Sep,hronic kidney disease (ICD-10 - N18.9)Discussed kidney studies with patient today. Her BUN is 20. Creatinine is up from 1.22 to 1.32. HerEGFR is down from 46 to 42. She has an appointment with Dr. Plummer in Dec (2023). Sep,Migraine (ICD-10 - G43.909)Follow with Dr. Teran for evaluation of migraines. [...] will let Dr. Teran know about this. Sep,Long term use of drug (ICD-10 - Z79.899) Sep,Weight gain (ICD-10 - R63.5)She has gained three pounds since last seen. [employer] Other 11-09-2023 Miscellaneous Notes* Telephone Encounter - Katia Alexander - 09/09/2023 2:36 PM EST Completed over [facility]: MYRTLE JONES Palafox: [id number] - [place] Drug Trudhesa 0.725MG/ACT aerosol Form [facility] [employer] Electronic PA Form (2016 [facility]) Approvedtoday Your request was approved based on the initial information provided at the time of the coverage request submission. Please allow additional time for the final decision to be made and added to the patient's account. Katia Alexander documented in this encounterUniversity Hospitals Geauga Medical Center08-09-2023 Evaluation note* Encounter Date Diagnosis Assessment Notes Treatment Notes Treatment Clinical Notes Jun, Hypertriglyceridemia (ICD-10 - E 78.1) Discussed cholesterol results with patient today. Total [...] regular exercise regimen six days a week. Jun,Hyperglycemia (ICD-10 - R73.9)Discussed blood sugar results with patient today. Glucose is 114. HgA1C is up from 5.2 to 5.6. She voices that she is not eating candy any longer. I did recommend that she continue to monitor her intake of carbs and sugars. Stay active. I did recommend that she begin exercising and I would like herto do some type of aerobic exercise three days a week for 30 minutes and the alternate three days she should do some type of resistance training. She needs to work her way up to thirty minutes. Jun,Migraine (ICD-10 - G43.909)Continue with above medication as directed. Follow with specialist as directed. She goes to see in September (2022) and was going to discuss the Propranolol dose with him because her blood pressure is elevated. She is not sure if this is caused by the Amovig or not. Jun,egenerative disc disease, cervical (ICD-10 - M50.30)She does continue to use and benefit from the above medication. She is to call when she needs a refill on the medication. I will see her back in three months. Side effects/risks/benefits of medication were reviewed. An OARRS report [...] including the use of non-opiod analgesics and non-pharmacological intervention with patient if [...] current substance abuse treatments are being prescribed. Jun,hronic kidney disease (ICD-10 - N18.9)Discussed her kidney studies with her today. Her BUN is 20. Creatinine is 1.24. EGFR is 45. Jun,Long term use of drug (ICD-10 - Z79.899) Jun,Weight gain (ICD-10 - R63.5)We discussed her beginning an exercise program to help her cholesterol, blood sugar, blood pressure, overall health. Jun,reast cancer screening (ICD-10 - Z12.31)Provided her with an order to have a bilateral mammogram done. [employer] Other 03-16-2023 Evaluation note* Encounter Date Diagnosis Assessment Notes Treatment Notes Treatment Clinical Notes Dec, Chronic kidney disease, stage 3 unspecified (ICD-10 - N18.30) She has longstanding CKD likely due to the renovascular disease. Her baseline serum creatinine is 1.1-1.2 mg/dL. I discussed with the importance of good HTN control to surround the progression of CKD. Dec,trophic kidney (ICD-10 - N26.1)She has smaller right kidney likely due to the renal vascular disease. Dec,en hy kid w cr kid I-IV (ICD-10 - I12.9)Her blood pressures controlled. She appears to be euvolemic. Continue current dose of propranolol Dec,Secondary hyperparathyroidism (ICD-10 - N25.81)MBD parameters including calcium, phosphorus and PTH are within the goal. She has a supratherapeutic vitamin D but denies any intake of the vitamin D. I have advised her to lower the vitamin D supplement Dec,Hypernatremia (ICD-10 - E87.0)She has hyponatremia due to the excessive free water deficit due to the swelling at her workplace. Advised her to adequately hydrate herself during the work. Dec,Hypomagnesemia (ICD-10 - E83.42)Advised her to resume oral magnesium. [employer] Other 02-28-2023 Evaluation note* Encounter Date Diagnosis Assessment Notes Treatment Notes Treatment Clinical Notes Dec, Degenerative disc disease, cervi cody (ICD-10 - M50.30) [employer] Other 01-30-2023 Evaluation note* Encounter Date Diagnosis Assessment Notes Treatment Notes Treatment Clinical Notes Nov, Hypertriglyceridemia (ICD-10 - E 78.1) Discussed cholesterol results with patient today. Total is 195. HDL is 42. LDL is 107. Triglycerides are 230. VLDL is 46. I would like her to continue to avoid the candy and intake of carbs. She is to stay active. Nov,Hyperglycemia (ICD-10 - R73.9)Her glucose is 112. HgA1C is 5.2 which is normal. She voices that she cut out her intake of candy. She is encouraged to continue with what she is doing as it is working well. Nov,Migraine (ICD-10 - G43.909)Continue with above medications as needed. Nov,hronic kidney disease (ICD-10 - N18.9)She has an appointment to see Dr. Plummer in December (2022). Her BUN is 17. Creatinine is 1.15. EGFR is49. Stay hydrated with plenty of water. Nov,Long term use of drug (ICD-10 - Z79.899) Nov,egenerative disc disease, cervical (ICD-10 - M50.30)An OARRS report was reviewed, no discrepancies noted. Frequent appointments needed due to addictionpotential of medication. Pain inventory sheet completed and reviewed. She does continue to use and benefit from the above medication. I will see her back in three months. Side effects/risks/benefits of medication were reviewed. She does not need a refill on the medication and will call when she runs low. She had an MRI of the cervical spine done earlier this month ordered by Dr. Mccauley who hasadvised her that she has gone as far [...] day so she has to use caution. Nov,Weight gain (ICD-10 - R63.5)She has gained 1/2 pound since last seen. Her TSH is normal at 1.092. Nov,OtherShe wears a compression stocking on her right foot because she found that it was swelling at times. [employer] Other 01-24-2023 Miscellaneous Notes* Telephone Encounter - Evelyne Garcia - 11/24/2022 9:11 AM EST Physician: Call from patient requesting refill. Please E-Scribe Last office visit 07/24/2022 with in person Next office visit Not scheduled. Requested Prescriptions Pending Prescriptions Disp Refills propranolol ER (INDERAL LA) 80 mg 24 hr capsule 90 capsule 3 Sig: Take 1 capsule by mouth once daily. [facility] Evelyne Garcia documented in this encounterUniversity Hospitals Geauga Medical Center01-16-2023 Instructions* Patient Instructions* Anaid Mccauley APRN.CNP - 11/16/2022 1:14 PM EST Images from the original note were not included. Mychart with updates. documented in this encounterUniversity Hospitals Geauga Medical Center01-16-2023 History of Present illness Narrative* [...] nortriptyline, topomax, vicodin Physical Therapy: Online through [employer]. Started in April 2022- current Treating Physicians: [...] up: update on mychart documented in this encounterUniversity Hospitals Geauga Medical Center01-16-2023 Miscellaneous Notes* [facility] - Elo Dunaway, fish cutting machine operator - 11/16/2022 10:40 AM EST Radiology [...] DATA: Not applicable SIGNED BY: Elo Dunaway fish cutting machine operator November 16, 2022 10:58 AM documented in this encounterUniversity Hospitals Geauga Medical Center01-16-2023 Progress note* [facility] - Elo Dunaway [...] DATA: Not applicable SIGNED BY: Elo Dunaway fish cutting machine operator November 16, 2022 10:58 AM [facility]01-13-2023 Miscellaneous Notes* Telephone Encounter - Lori Palmer - 11/13/2022 2:14 PM EST MRI- 11/16/2022 @ 1040am Appointment reminder call - LEFT MESSAGE - with directions to office and the # to call if they cannot keep this appointment [phone] documented in this encounterUniversity Hospitals Geauga Medical Center12-08-2022 Miscellaneous Notes* Telephone Encounter - [...] refills. Prescriptions will now be processed through [facility] for determination of next steps. For questions relating to this submission, please contact [facility] [phone] * Telephone Encounter - Salma Callejas RN - 10/06/2022 2:56 PM EST [facility] received prescription(s) for Aimovig 140MG/ML auto-injectors . Benefits investigation was conducted, indicating that a prior authorization is required. PA was initiated and pending review through [employer]. All pertinent clinical information was submitted to insurance. [facility] [facility] Palafox: [id number] Ordering Provider: DO Júnior Jara Alisha, RN [facility] P: , F: documented in this encounterUniversity Hospitals Geaug[facility] Center11-28-2022 History of Present illness Narrative* Anaid Mccauley APRN.LABOR REPRESENTATIVE - 09/28/2022 5:06 PM EST Spine [facility] [...] nortriptyline, topomax, vicodin Physical Therapy: Online through [employer]. Started in April 2022- current Treating Physicians: [...] Level: 3 - Low documented in this encounterUniversity Hospitals [facility]11-11-2022 History of Present illness Narrative* [...] Care Gap or Scheduling/Wellness visits Payer: Payor: NGUYENEM / Plan: BLUE CARD PPO OOS / [...] 11, 2022 3:24 PM documented in this encounterUniversity Hospitals Geaug[facility] Center10-26-2022 Evaluation note* Encounter Date Diagnosis Assessment Notes Treatment Notes Treatment Clinical Notes Aug, Degenerative disc disease, cervi cody (ICD-10 - M50.30) She voices that her neck continues to hurt, she has bad days, and then she has somewhat bad days, it is never pain free. She went and saw Anaid Mccauley from [facility] and she would [...] will provide her with a refill. Side effects/risks/benefits of medication were reviewed. I will see her back in three months. Aug,ther2:50 PM - 2:57 PM [employer] Other 09-28-2022 Evaluation note* Encounter Date Diagnosis Assessment Notes Treatment Notes Treatment Clinical Notes Jul, Degenerative disc disease, cervi cody (ICD-10 - M50.30) [employer] Other 09-23-2022 History of Present illness Narrative* Cresencio Robles [...] Overuse Headache: Analgesic Butalbital/acetaminophen/caffeine (Fioricet) Hydrocodone/Acetaminophen (Vicodin, [place]) Anti-Migraine Dihydroergotamine (DHE-45, Migranal) Rizatriptan (Maxalt) Sumatriptan [...] Nerve blocks Analgesic Butalbital/acetaminophen/caffeine (Fioricet) Hydrocodone/Acetaminophen (Vicodin, [place]) Anti-Convulsant Topiramate (Topamax, Trokendi XL, Qudexy) Anti-Depressant [...] fluent. Stable primary gait. Cresencio Robles DO [facility] [place] [facility] [address] [place] [address] Level of service: Est level 2 (10-19 min). Time spent 18 min on the day of service, which included preparing to see the patient, ndul-ty-dhde patient care, completing clinical documentation, obtaining and/or reviewing separately obtained history, counseling and educating the patient/family/caregiver, and ordering medications, tests, or procedures. Medical Decision Making: Medical Decision Making Level: 1 - N/A cc: Anand Garcia [address] [place] [address] documented in this encounterUniversity Hospitals Geauga [facility] Center07-25-2022 Evaluation note* Encounter Date Diagnosis Assessment Notes Treatment Notes Treatment Clinical Notes May, Chronic kidney disease (ICD-10 - N18.9) She did see Dr. Plummer for evaluation, voices that she will not return to see him for one year. Her BUN is 16. EGFR is 1.19. EGFR is 47. Will continue to monitor. May,egenerative disc disease, cervical (ICD-10 - M50.30)She voices that her neck is killing her [...] 05, 2022, she had an episode where shebecame very light-headed and fell because of the [...] I would like to rule out Cushings dis ease. I will order an x-ray of the thoracic and cervical spine. I will provide her with pain medication to have on hand in case she needs it. Guidance is given on how to take the medication. Do not drive or drink alcohol if she takes the medication. She understands the medication can be addictive and the side effects/risks/benefits of medication. Side effects/risks/benefits of medication were reviewed. May,Hypertriglyceridemia (ICD-10 - E78.1)Discussed cholesterol results with patient today. Total is 188. HDL is 40. LDL is 93.4. Triglycerides are 273 which are higher than we would like to see. Her VLDL level is 54.6 which is much higher than we would like to see. I am going to order a fasting insulin level, based on those results we mayneed to discuss her doing a keto/ketocarnivore diet. I would like her to watch her intake of carbs and sugars. Stay active. She can call for the results and at that time we may need to discuss this further. I did ask her to do some research on the keto diet. May,Long term use of drug (ICD-10 - Z79.899) May,Migraine (ICD-10 - G43.909)She does continue with above medications. May,Hyperglycemia (ICD-10 - R73.9)Discussed blood sugar results with patient today. Glucose is 108. HgA1C is 5.5. I did order a fasting insulin level and also an AM and PM Cortisol level. She will need to call the lab and find out when they need her to be at the lab for the AM Cortisol level. May,Encounter for screening mammogram for breast cancer (ICD-10 - Z12.31)She will be due to have a repeat mammogram done after 06-06-22. An order is provided. May,Weight gain (ICD-10 - R63.5) May,uffalo hump (ICD-10 - E65) May,Low hemoglobin (ICD-10 - D64.9)I did advise her that her hemoglobin has gone down from 12.7 to 12.2 to 12.0. She did have a colonoscopy in 2018. We discussed that chronic kidney disease can cause this to go down and make someone slightly anemic. This is something that we can continue to monitor. [employer] Other 04-14-2022 Evaluation note* Encounter Date Diagnosis Assessment Notes Treatment Notes Treatment Clinical Notes Jan, Chronic kidney disease, stage 3 unspecified (ICD-10 - N18.30) She has longstanding CKD likely due to the renovascular disease. Her baseline serum creatinine is 1.1-1.2 mg/dL. I discussed with the importance of good HTN control to surround the progression of CKD. Jan,trophic kidney (ICD-10 - N26.1)She has smaller right kidney likely due to the renal vascular disease. Jan,en hy kid w cr kid I-IV (ICD-10 - I12.9)Her blood pressures controlled. She appears to be euvolemic. Continue current dose of propranolol Jan,econdary hyperparathyroidism (ICD-10 - N25.81)MBD parameters including calcium, phosphorus and PTH are within the goal. She has a supratherapeutic vitamin D but denies any intake of the vitamin D. I have advised her to lower the vitamin D supplement [employer] Other 04-08-2022 Evaluation note* Encounter Date Diagnosis [...] tolerated injection well with no adverse reactions. Jan,rimary osteoarthritis of right hip (ICD-10 - M16.11) Jan,ight hip pain (ICD-10 - M25.551) Jan,ther1. We had a long discussion regarding the etiology of their symptoms. I explained to the patient that greater trochanteric bursitis is a chronic condition and as a result may require several rounds of physical therapy and or injections. Furthermore, it requires a diligent home exercise regimen to prevent flareups. 2. We discussed oral anti-inflammatories and Tylenol. Recommended utilizing svfi-atb-snivazd oral anti-inflammatories. Recommended adjusting their Tylenol dosing to 1000mg by mouth up to 3 times a day. 3. We discussed physical therapy. Patient preferred formal PT. 4. We discussed steroid injections as a treatment option. Patient preferred a hip bursa injection today. After consent was obtained, the right hip greater trochanteric bursa was injected with 3 cc ofKenalog and 7 cc of bupivacaine using sterile technique. Patient tolerated the injection well.. 5. Follow up in 3 months. [employer] Other 03-30-2022 NoteThe [place], [place] NAME: MYRTLE JONES DATE OF : MEDICAL REC#: [id number] ADMINISTRATION PHYSICIAN: [address] [facility] DATE: 01/28/2022 06:21:00 [employer] DATE: 01/28/2022 22:00 DICTATING PHYSICIAN: YANNICK ESTRADA [...] Notes Dec, Foot pain, right (ICD-10 - M79.6 71) She is having surgery per Dr. Estrada on her right foot. She voices that she has a spur and a bunion. She will have this done at the [facility]. She voices that she can walk and climb two flights of stairs without having any shortness of breath or difficulty. Dec,re-op evaluation (ICD-10 - Z01.818) A presurgical clearance was done in the office today. After evaluation I did provide her with a letter stating she is medically cleared for surgery. Dec,Hip pain (ICD-10 - M25.559)right hip She does not think that her [...] the hip issue coming from her back. Dec,ther intervertebral disc degeneration, lumbar region (ICD-10 - M51.36) Dr. Hidalgo did injections in her back, she voices that they told her that the right hip pain was likely coming from her back. [employer] Other 12-06-2021 NoteHOSPITAL REGULATIONS: All Positive and [...] of care. Cole Hidalgo M.D. Dictated: 09/23/2021 [id number] Transcribed: 09/23/2021 *Anand Garcia D.O.[facility]Comment [facility] above:Result Comment: Electronically Signed By: Gwen CANNON, Cole Sandoval.br\Date and Time Signed: 10/06/21 13:52 [id number] Note [id number]:127[facility] 08-25-2021 NoteHOSPITAL REGULATIONS: All Positive and [...] symptoms become more pro (more content not included)...[facility] CenterComment on above:Result Comment: Electronically Signed By: Gwen CANNON, Cole Anaya\.br\Date and Time Signed: 08/25/21 13:52 EDTEvaluation noteNo InformationNort Lamsa Other Evaluation noteNo assessment information available [facility] Work Phone: Evaluation note* Diagnosis [...] affecting cervical region [facility] Diagnosis Spinal stenosis of cervical region- Primary Spinal stenosis in cervical region Cervicalgia History of fusion of cervical spine Arthrodesis status Cervical spondylosis Cervical spondylosis without myelopathy [facility] Cervicalgia- Primary History of fusion of cervical spine Arthrodesis status Cervical spondylosis Cervical spondylosis without myelopathy [facility] Diagnosis Thunderclap headache- Primary Headache 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 [facility] Diagnosis Migraine with aura and without status migrainosus, not intractable- Primary Migraine with aura, without mention of intractable migraine without mention of status migrainosus Migraine without aura and without status migrainosus, not intractable Migraine without aura, without mention of intractable migraine without mention of status migrainosus [facility] Thunderclap headache Headache 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 documented in this encounter [facility]* Diagnosis Cervicalgia History of fusion of cervical spine Arthrodesis status Cervical spondylosis Cervical spondylosis without myelopathy documented in this encounter [facility]* Diagnosis Other seborrheic dermatitis- Primary [facility] Diagnosis Migraine without aura and without status migrainosus, not intractable- Primary Migraine without aura, without mention of intractable migraine without mention of status migrainosus Migraine with aura and without status migrainosus, not intractable Migraine with aura, without mention of intractable migraine without mention of status migrainosus documented in this encounter [facility]* Diagnosis Tear of left rotator cuff, unspecified tear extent, unspecified whether traumatic- Primary Other shoulder lesions, left shoulder [facility]* Diagnosis Tear of left rotator cuff, unspecified tear extent, unspecified whether traumatic- Primary Other shoulder lesions, left shoulder documented in this encounter [facility]* Diagnosis Other seborrheic dermatitis- Primary [facility]* Diagnosis Tear of left rotator cuff, unspecified tear extent, unspecified whether traumatic- Primary Other shoulder lesions, left shoulder documented in this encounter [facility]* Diagnosis Tear of left rotator [...] lesions, left shoulder documented in [facility] encounter [facility]* Diagnosis Tendinitis of left [...] [facility]* Diagnosis Migraine without aura and without status migrainosus, not intractable- Primary Migraine without aura, without mention of intractable migraine without mention of status migrainosus Migraine with aura and without status migrainosus, not intractable Migraine with aura, without mention of intractable migraine without mention of status migrainosus documented [facility] this encounter [facility]* Diagnosis Tendinitis of left rotator cuff- Primary Tear of left rotator cuff, unspecified tear extent, unspecified whether traumatic documented in this encounter [facility]* Diagnosis Tendinitis of left rotator cuff- Primary Tear of left rotator cuff, unspecified tear extent, unspecified whether traumatic [facility] HealthcareHistory general Narrative - Reported* Type Description Date Medical History Pneumonia - 1977 Medical HistoryUterine Fibroids - 1997Medical HistoryLast Pap 2009; Dr. Mcdonald [facility] of [facility]; due to Chest Pain at Dr. Morenoal HistoryFractured right wrist as a childMedical Historylt elbow torn ligament - [place] [facility] [place] compMedical Historymigraine headachesMedical HistoryPt is a fraternal twin, has a sisterSurgical Historycarpal tunnel both handsSurgical History [id number] Historyhysterectomy still has ovariesSurgical History Vaginal Hyst - Dr. Valencia (Due to uterine fibroid)09/06/1998Surgical History tonsillectomySurgical HistoryCervical fusion - Dr. Edgar YoSurgical History lasikSurgical HistoryCTS Release bilaterally- Dr. [id number] Historyneck surgerySurgical Historyelbow torn ligament - [facility] - w/c003/07/2015Surgical Historyneck /2015Surgical Historybotox for migraines Dr [id number] Surgical Historybotox - for migraines - Dr Robles01/2018Surgical History Colonoscopy - Dr. Urias- Normal - repeat in 10 years Hospitalization HistorySee Above Surgical Hx [employer] Other History general Narrative - Reported* Type Description Date Medical History Pneumonia - 1977 Medical HistoryUterine Fibroids - 1997Medical HistoryLast Pap 2009; Dr. Mcdonald [facility] History of [facility]; due to Chest Pain at Dr. Fierro HistoryFractured right wrist as a childMedical Historylt elbow torn ligament - [place] [facility] [place] compMedical Historymigraine headachesMedical HistoryPt is a fraternal twin, has a sisterMedical HistoryCKDSurgical Historycarpal tunnel both hands Surgical IaagovyIcvecvxzokkxl6227Ucanmmez Historyhysterectomy still has ovaries Surgical HistoryVaginal Hyst - Dr. Valencia (Due to uterine fibroid)09/06/1998 Surgical HistorytonsillectomySurgical HistoryCervical fusion - Dr. Edgar Surgical HistorylasikSurgical HistoryCTS Release bilaterally- Dr. Capellan1996 Surgical Historyneck surgerySurgical Historyelbow torn ligament - [facility] - w/c 03/07/2015Surgical Historyneck ggtherq51/2015Surgical Historybotox for migraines Dr [id number] Historybotox - for migraines - Dr Robles01/2018Surgical HistoryColonoscopy - Dr. Urias- Normal - repeat in 10 years Surgical Historyright foot surgery01/28/2022Hospitalization HistorySee Above Surgical Hx [employer] Other History general Narrative - Reported* Type Description Date Medical History Pneumonia - 1977 Medical HistoryUterine Fibroids - 1997Medical HistoryLast Pap 2009; [facility] Mcdonald [facility] History of [facility]; due to Chest Pain at Dr. Camachoedicdennise HistoryFractured right wrist as a childMedical Historylt elbow torn ligament - [place] [facility] [place] workers compMedical Historymigraine headachesMedical HistoryPt is a fraternal twin, has a sisterMedical HistoryCKDSurgical Historycarpal tunnel both hands Surgical JukzpiyPlaumxxvlrdqg6960Owbggban Historyhysterectomy still has ovaries Surgical HistoryVaginal Hyst - Dr. Valencia (Due to uterine fibroid)09/06/1998 Surgical HistorytonsillectomySurgical HistoryCervical fusion - Dr. Edgar Surgical HistorylasikSurgical HistoryCTS Release bilaterally- Dr. Capellan1996 Surgical Historyneck surgerySurgical Historyelbow torn ligament - [facility] - w/c 03/07/2015Surgical Historyneck /2015Surgical Historybotox for migraines Dr [id number] Historybotox - for migraines - Dr Robles01/2018Surgical HistoryColonoscopy - Dr. Urias- Normal - repeat in 10 years Surgical Historyright foot surgeryHospitalization HistorySee Above Surgical Hx [employer] Other Reason for referral (narrative)No reason for referral information availableSuburban Community [facility] Work Phone: Reason for visit Narrative* Rehabilitation - Outpatient (Routine) - AuthorizedSpecialtyDiagnoses / ProceduresReferred By ContactReferred To ContactPhysical Therapy Diagnoses Unspecified rotator cuff tear or rupture of left shoulder, not specified as traumatic Other shoulder lesions, left shoulder Procedures [place] PHYSICAL THERAPY EVALUATION LOW COMPLEX 20 MINS [place] OFFICE/OUTPATIENT [facility] Ralph Hoff MD [address] [place] [address] Phone: tel: fax: Kathryn Flynn, PT Referral IDStatusReasonStart DateExpiration DateVisits RequestedVisits [id number]/30/20246/ [facility] HealthcareReason for visit Narrative* Rehabilitation - Outpatient (Routine) - AuthorizedSpecialtyDiagnoses / ProceduresReferred By ContactReferred To ContactPhysical Therapy Diagnoses Unspecified rotator cuff tear or rupture of left shoulder, not specified as traumatic Other shoulder lesions, left shoulder Procedures [place] MANUAL THERAPY TQS 1/> REGIONS EACH 15 MINUTES PHYS/OCC THERAPY SS [place] OFFICE/OUTPATIENT NEW HIGH MDM 60 MINUTES WA THERAPEUTIC PX 1/> AREAS EACH 15 MIN EXERCISES Ralph Hoff MD [address] [place] [address] Phone: tel: fax: Kathryn Flynn, PT Referral IDStatusKasyeStart DateExpiration DateVisits RequestedVisits [id number]/1/20252/ [facility] HealthcareReason for visit Narrative* Rehabilitation - Outpatient (Routine) - AuthorizedSpecialtyDiagnoses / ProceduresReferred By ContactReferred To ContactPhysical Therapy Diagnoses Unspecified rotator cuff tear or rupture of left shoulder, not specified as traumatic Other shoulder lesions, left shoulder Procedures [place] MANUAL THERAPY TQS 1/> REGIONS EACH 15 MINUTES PHYS/OCC THERAPY SS [place] OFFICE/OUTPATIENT NEW HIGH MDM 60 MINUTES WA THERAPEUTIC PX 1/> AREAS EACH 15 MIN EXERCISES Ralph Hoff MD [address] [place] [address] Phone: tel: fax: Kathryn Flynn, PT Referral IDStatusReasonStart DateExpiration DateVisits RequestedVisits [id number]/1/202512/31/20253030 [facility] HealthcareReason for visit Narrative* Rehabilitation - Outpatient (Routine) - AuthorizedSpecialtyDiagnoses / ProceduresReferred By ContactReferred To ContactPhysical Therapy Diagnoses Other shoulder lesions, left shoulder Procedures [place] PHYSICAL THERAPY EVALUATION LOW COMPLEX 20 MINS [place] OFFICE/OUTPATIENT NEW HIGH MDM 60 MINUTES aRlph Hoff MD [address] [place] [address] Phone: tel: fax: Kathryn Flynn, PT Referral IDStatusReasonStart DateExpiration DateVisits RequestedVisits [id number]/14/202512/31/20253024 [facility] HealthcareReason for visit Narrative* Rehabilitation - Outpatient (Routine) - AuthorizedSpecialtyDiagnoses / ProceduresReferred By ContactReferred To ContactPhysical Therapy Diagnoses Other shoulder lesions, left shoulder Procedures [place] PHYSICAL THERAPY EVALUATION LOW COMPLEX 20 MINS WA OFFICE/OUTPATIENT NEW HIGH MDM 60 MINUTES Ralph Hoff MD Phone: tel: fax: Kathryn Flynn, PT Referral IDStatusReasonStart DateExpiration DateVisits RequestedVisits [id number]/14/202512/31/20253024 [facility] HealthcareReason for visit Narrative* Rehabilitation - Outpatient (Routine) - AuthorizedSpecialtyDiagnoses / ProceduresReferred By ContactReferred To ContactPhysical Therapy Diagnoses Other shoulder lesions, left shoulder Procedures [place] PHYSICAL THERAPY EVALUATION LOW COMPLEX 20 MINS [place] OFFICE/OUTPATIENT NEW HIGH MDM 60 MINUTES Ralph Hoff MD Phone: tel: fax: Kathryn Flynn, PT Referral IDStatusReasonStart DateExpiration DateVisits RequestedVisits [id number]/14/202512/31/20253024 [facility]Reason [facility] Narrative* Rehabilitation - Outpatient (Routine) - ClosedSpecialtyDiagnoses / ProceduresReferred By ContactReferred To Contact Physical Therapy Diagnoses Other shoulder lesions, left shoulder Procedures [place] PHYSICAL THERAPY EVALUATION LOW COMPLEX 20 MINS [place] OFFICE/OUTPATIENT NEW HIGH MDM 60 MINUTES Ralph Hoff MD Phone: tel: fax: Kathryn Flynn, PT Referral IDStatusReasonStart DateExpiration DateVisits RequestedVisits [id number]/14/202512/31/20253024 [facility] Summary Purpose Family History No Family History Records Found Relationship Condition Age at Onset Recorded Date/T hubert brother Diabetes mellitus Unknown fatherHypertensionUnknownDeceasedUnknownmotherDeceasedUnknownMalignant neoplasm of breastUnknownHypertensionUnknownDiabetes mellitusUnknownMalignant neoplasm Unknown Relationship Condition Age at Onset Recorded Date/T hubert brother Diabetes mellitus Unknown fatherDeceasedUnknownHypertensionUnknownRenal failureUnknownmotherDiabetes mellitusUnknownDeceasedUnknownMalignant neoplasm of breastUnknown Relationship Condition Age at Onset Recorded Date/T hubert brother Diabetes mellitus Unknown fatherDeceasedUnknownHypertensionUnknownRenal failureUnknownmotherDiabetes mellitusUnknownDeceasedUnknownMalignant neoplasm of breastUnknownMalignant neoplasmUnknown Advance Directives No Advanced Directives Records Found Advance Directive Response Recorded Date/ Time Advance Directives No August 03, 2017 4:04pm Advance Directive Response Recorded Date/ Time Advance Directives No August 03, 2017 3:04pm Chief Complaint and Reason for Visit Chief Complaint Screening Chief Complaint med refill ScreeningReason for VisitChronic kidney disease, stage 3 unspecified Degenerative disc disease, cervical [...] December 18, 2024 3:06pm telephone/review labs/med refill Febr y 2024 2:36pm Shoulder pain December 26, [...] 27 2:35pm Degenerative disc disease, cervical Augu st 2024 2:35pm Hyperglycemia June 27, 2025 2: 35pm Hypertriglyceridemia June 27, 2025 2 :35pm Status post arthroscopy of left shoulder June 27, 2025 2:35pm UTI (urinary tract infection) June 2:35pm Chief Complaint Admit Date Poss uti June 22, 2025 11 :24am R39.15 June 22, 2025 11 :36am review labs/med refill June 27, 2025 2:35pm Z12.31 August 20, 2025 3 :22pm Reason for Visit Admit Date UTI (urinary tract infection) June 11:24am Leoncio hy kid w cr kid I-IV June 27 2:35pm Degenerative disc disease, cervical Augu 2024 2:35pm Hyperglycemia June 27, 2025 2: 35pm Hypertriglyceridemia June 27, 2025 2 :35pm Status post arthroscopy of left shoulder June 27, 2025 2:35pm UTI (urinary tract infection) June 2:35pm Reason for Referral SpecialtyDiagnoses / ProceduresReferred By ContactReferred To Contact Simona Carlson APRN.LABOR REPRESENTATIVE [address] [phone] Referral IDStatusReasonStart DateExpiration DateVisits RequestedVisits [id number] [id number] / ProceduresReferred By ContactReferred To Contact IMAGING Diagnoses Thunderclap headache Dissection of vertebral artery (HCC) Procedures MRA BRAIN WO IVCON MRA, HEAD W/O CONTRAST Cresencio Robles, DO [address] [place] [address] Mr Imaging [place] [address] [facility] DateExpiration DateVisits RequestedVisits [id number] Review Auto-Generated Referral /[id number] / ProceduresReferred By ContactReferred To ContactMR IMAGING Diagnoses Thunderclap headache Dissection of vertebral artery (HCC) Procedures MRI BRAIN WO IVCON MRI BRAIN BRAIN STEM W/O CONTRAST MATERIAL Cresencio Robles DO [address] [place] [address] Mr Imaging [place] [address] Referral IDStatusReasonStart DateExpiration DateVisits RequestedVisits [id number] Review Auto-Generated Referral /[id number] / ProceduresReferred By ContactReferred To Contact IMAGING Diagnoses Cervicalgia History of fusion of cervical spine Cervical spondylosis Procedures MRI CERVICAL SPINE WO IVCON MRI SPINAL CANAL CERVICAL W/O CONTRAST Anaid Adams, GHISLAINE.LABOR REPRESENTATIVE [address] [place] [address] Mr Imaging Referral IDStatusReasonStart DateExpiration DateVisits RequestedVisits [id number] Review Auto-Generated Referral /[id number] / ProceduresReferred By ContactReferred To [facility] Diagnoses Cervicalgia Procedures CONSULT [facility] OFFICE/OUTPATIENT NEW HIGH MDM 60-74 MINUTES Cresencio Robles, [address] [place] [address] Referral IDStatusReasonStart DateExpiration DateVisits RequestedVisits [id number] PCP Requested Referral / Additional Source Comments INFORMATION SOURCE (unrecogn ized section and content) DATE CREATED AUTHOR 12/26/2021 [facility] DATE CREATED AUTHOR AUTHOR'S ORGANIZ ATION 01/05/2023 [facility] DATE CREATED AUTHOR AUTHOR'S ORGANIZ ATION 03/04/2024 [facility] DATE CREATED AUTHOR AUTHOR'S ORGANIZ ATION 04/05/2025 [facility] DATE CREATED AUTHOR AUTHOR'S ORGANIZ ATION 04/19/2025 [facility] DATE CREATED AUTHOR AUTHOR'S ORGANIZ ATION 08/21/2025 [facility] REASON FOR VISIT (unrecogniz ed section and content) ReasonCommentsFollow UpMigrainesReasonCommentsNeck PainReasonCommentsInsurance AuthorizationAimovig 140MG/ML auto-injectorsReasonCommentsappointment instructionsMRI- 11/16/2022 @ 1040amAppointment reminder call - LEFT MESSAGE - with directions to office and the# to call if they cannot keep this [phone] UpNeck and shoulder painReasonOnset DateCommentsRefill Jgcsmlw0711/23/2022ReasonCommentsInsurance Authorization TRUDHESAReasonCommentsInsurance SdepuuvjjsyzfWkzupwh-Jkpidv-Srhvn Theraputics ReasonCommentsInsurance TnaeudlkhpcewIwppgnq-Vrxcry-Muwhg TheraputicReason CommentsFollow UpReasonOnset DateCommentsRefill Dynuhuh0006/09/2024Specialty Diagnoses / ProceduresReferred By ContactReferred To ContactMR IMAGING Diagnoses Thunderclap headache Dissection of vertebral artery (HCC) Procedures MRI BRAIN WO IVCON MRI BRAIN BRAIN STEM W/O CONTRAST MATERIAL Cresencio Robles, DO [address] [place] [address] Mr Imaging [place] [address] Referral IDStatusReasonStart DateExpiration DateVisits RequestedVisits [id number] Auto-Generated Referral /[id number] AuthorizationQulipta 60MG tablets SpecialtyDiagnoses / ProceduresReferred By ContactReferred To Contact IMAGING Diagnoses Cervicalgia History of fusion of cervical spine Cervical spondylosis Procedures MRI CERVICAL SPINE WO IVCON MRI SPINAL CANAL CERVICAL W/O CONTRAST MATRL Anaid Mccauley, GHISLAINE.LABOR REPRESENTATIVE [address] [place] [address] Mr Imaging [place] [address] Referral IDStatusReasonStart DateExpiration DateVisits RequestedVisits [id number] Auto-Generated Referral /[id number]TaotfxzoEvwkif UpReasonComments Insurance AuthorizationNURTEC ODT 75 mg disintegrating tabletNURTEC ODT 75 mg disintegrating tabletReasonCommentsRefill RequestRPH managed refill Care Teams (unrecognized sec tion and content) Team Status: Active Member Role Status Tim Garcia DO Primary Care Provider Active Team [...] tart: October 19, 2024 End: October 19, 2024Ralph Hoff DOAttsourav ProviderActiveStart: October 19, 2024 End: October 19, 2024 Team Status: Active Member Role Status Tim Garcia DO Primary Care Provide r, Attending Provider Active Start: October 21, 2024 Team Status: Inactive Member Role Status Tim Garcia DO Primary Care Provider Active S tart: November 16, 2024 End: November 16hudson Plummer MDAttsourav ProviderActiveStart: November 16, 2024 End: November 16, 2024 Team Status: Active Member Role Status Tim Garcia DO Primary Care Provide r, Attending Provider Active Start: June 03, 2024 Team Status: Inactive Member Role Status Tim Garcia DO Primary Care Provide r, Attending Provider Active Start: June 21, 2024 End: June 21, 2024 Team Status: Inactive Member Role Status Tim Garcia DO Primary Care Provider, Attending Pro vider Active Team MemberRelationshipSpecialtyStart DateEnd Date Anand Garcia, DO [address] [place] [address] [facility]07/02/15Team MemberRelationshipSpecialtyStart DateEnd Date Anand Garcia, DO [address] [place] [phone] PCP [facility]07/02/15Team MemberRelationshipSpecialtyStart DateEnd Date Anand Garcia, DO [address] [place] [address] PCP - GeneralFamily Medicine07/02/15Team MemberRelationshipSpecialtyStart DateEnd Date Anand Garcia, DO [address] [place] [address] PCP - GeneralFamily Medicine07/02/15Team MemberRelationshipSpecialtyStart DateEnd Date Anand Garcia, DO [address] [place] [address] PCP - GeneralFamily Medicine07/02/15Team MemberRelationshipSpecialtyStart DateEnd Date Anand Garcia, DO [address] [place] [address] PCP - GeneralFamily Medicine07/02/15Team MemberRelationshipSpecialtyStart DateEnd Date Anand Garcia, [address] [place] [address] PCP - GeneralFamily Medicine07/02/15Team MemberRelationshipSpecialtyStart DateEnd Date Anand Garcia, [address] [place] [address] PCP - GeneralFamily Medicine07/02/15Team MemberRelationshipSpecialtyStart DateEnd Date Anand Garcia DO [address] [place] [address] PCP - GeneralFamily Medicine07/02/15Team MemberRelationshipSpecialtyStart DateEnd Date Girvin, Anand C, DO [address] [place] [address] PCP - GeneralFamily Medicine07/02/15Team MemberRelationshipSpecialtyStart DateEnd Date Anand Garcia, DO [address] [place] [address] PCP - GeneralFamily Medicine07/02/15Team MemberRelationshipSpecialtyStart DateEnd Date Anand Garcia, DO [address] [place] [address] PCP - GeneralFamily Medicine07/02/15Team MemberRelationshipSpecialtyStart DateEnd Date Anand Garcia, DO [address] [place] [address] PCP - GeneralFamily Medicine07/02/15Team MemberRelationshipSpecialtyStart DateEnd Date Anand Garcia, DO [address] [place] [address] PCP - GeneralFamily Medicine07/02/15Team MemberRelationshipSpecialtyStart DateEnd Date Anand Garcia, DO [address] [place] [address] PCP - GeneralFamily Medicine07/02/15Team MemberRelationshipSpecialtyStart DateEnd Date Anand Garcia, DO [address] [place] [address] PCP - GeneralFamily Medicine07/02/15 Team Status: Inactive Member Role Status Dates Anand Garcia DO Primary Care Provider Active S tart: December 18, 2024 End: December 18, 2024Ralph Hoff DOAttending ProviderActiveStart: December 18, 2024 End: December 18, 2024 Team Status: Inactive Member Role Status Tim Garcia DO Primary Care Provide r, Attending Provider Active Start: December 19, 2024 End: December 19, 2024 Team Status: Inactive Member Role Status Tim Garcia DO Primary Care Provider Active S tart: December 26, 2024 End: December 26, 2024Ralph Hoff DOAttending ProviderActiveStart: December 26, 2024 End: December 26, 2024 Team Status: Inactive Member Role Status Tim Garcia DO Primary Care Provider Active S tart: January 10, 2025 End: January 10, 2025Ralph Hoff DOAttending ProviderActiveStart: January 10, 2025 End: January 10, 2025 Team Status: Active Member Role Status Tim Garcia DO Primary Care Provider Active S tart: January 10, 2025 Ralph Hoff DOAttending Provider, Other ProviderActiveStart: January 10, 2025 Team Status: Active Member Role Status Tim Garcia DO Primary Care Provider Active S tart: January 22, 2025 Ralph Hoff DOAttending ProviderActiveStart: January 22, 2025 Team Status: Inactive Member Role Status Tim Garcia DO Primary Care Provider Active S tart: January 22, 2025 End: January 22, 2025Ralph Hoff DOAttending ProviderActiveStart: January 22, 2025 End: January 22, 2025 Team Status: Inactive Member Role Status Tim Garcia DO Primary Care Provider Active S tart: March 05, 2025 End: March 05, 2025Ralph Hoff DOAttending ProviderActiveStart: March 05, 2025 End: March 05, 2025Team MemberRelationshipSpecialtyStart DateEnd Date Anand Garcia DO [address] [place] [address] [facility]07/02/15 Team Status: Inactive Member Role Status Tim Garcia DO Primary Care Provider Active S tart: March 20, 2025 End: March 20, 2025Dasilvestre Garcia DOAttending ProviderActiveStart: March 20, 2025 End: March 20, 2025 Team Status: Inactive Member Role Status Tim Garcia DO Primary Care Provider Active S tart: April 23, 2025 End: April 23, 2025Ralph Hoff DOAttending ProviderActiveStart: April 23, 2025 End: April 23, 2025 Team Status: Inactive Member Role Status Tim Garcia DO Primary Care Provider Active S tart: May 14, 2025 End: May 14, 2025Ralph Hoff DOAttending ProviderActiveStart: May 14, 2025 End: May 14, 2025Team MemberRelationshipSpecialtyStart DateEnd Date Anand Garcia DO [address] [place] [id number] [facility]07/02/15 Team Status: Active Member Role Status Tim Garcia DO Primary Care Provider Active S tart: June 16, 2025 Anand Garcia DOAttending ProviderActiveStart: June 16, 2025 Team Status: Inactive Member Role Status Tim Garcia DO Primary Care Provider Active S tart: June 22, 2025 End: June 22Florence Jean ProviderActiveStart: June 22, 2025 End: June 22, 2025 Team Status: Inactive Member Role Status Dates Ely No APRN Attending Provider Active S tart: June 22, 2025 End: June 22, 2025 Team Status: Inactive Member Role Status Tim Garcia DO Primary Care Provider Active S tart: June 27, 2025 End: June 27, 2025Dasilvestre Garcia DOAttending ProviderActiveStart: June 27, 2025 End: June 27, 2025 Team Status: Active Member Role Status Tim Garcia DO Primary Care Provider Active S tart: July 04, 2025 Anand BellamyDO romeliaAttsourav ProviderActiveStart: July 04, 2025 Team MemberRelationshipSpecialtyStart DateEnd Date Radha Anand Moreno DO [address] [place] [address] [facility] Team Status: Active Member Role/Relationship Status Tim Garcia DO Primary Care Provider Active Team Status: Active Member Role/Relationship Status Tim Garcia DO Primary Care Provider Active S tart: June 16, 2025 Anand BellamyDO romeliaMattysourav ProviderActiveStart: June 16, 2025 Team Status: Inactive Member Role/Relationship Status Tim Garcia DO Primary Care Provider Active S tart: June 22, 2025 End: June 22yasmany No APRNAttending ProviderActiveStart: June 22, 2025 End: June 22, 2025 Team Status: Inactive Member Role/Relationship Status Dates Ely No , SENIOR ENVIRONMENTAL CONSULTANT Attending Provider Active S tart: June 22, 2025 End: June 22, 2025 Team Status: Inactive Member Role/Relationship Status Tim Garcia DO Primary Care Provider Active S tart: June 27, 2025 End: June 27, 2025Dasilvestre BellamyDO romeliaAttsourav ProviderActiveStart: June 27, 2025 End: June 27, 2025 Team Status: Active Member Role/Relationship Status Tim Garcia DO Primary Care Provider Active S tart: July 04, 2025 Eric Riddlesourav ProviderActiveStart: July 04, 2025 Team Status: Inactive Member Role/Relationship Status Tim Garcia DO Primary Care Provider Active S tart: August 20, 2025 End: August 20, 2025Dasilvestre Bellamyromelia Mattysourav ProviderActiveStart: August 20, 2025 End: August 20, 2025 Goals (unrecognized section and content) Goals may be documented in a n alternate section Source Comments (unrecognize d section and content) In the event this informatio n is protected by the Federal Confidentiality of Alcohol and Drug Abuse Patient Records regulations: The Federal rules restrict any use of the information to criminally investigate or prosecute any alcohol or drug abuse patient.[facility] CenterIn the event this information is protected by the Federal Confidentiality of Alcohol and Drug Abuse Patient Records regulations: The Federal rules restrict any use of the information to criminally investigate or prosecute any alcohol or drug abuse patient.[facility] CenterIn the event this information is protected by the Federal Confidentiality of Alcohol and Drug Abuse Patient Records regulations: The Federal rules restrict any use of the information to criminally investigate or prosecute any alcohol or drug abuse patient.[facility] CenterIn the event this information is protected by the Federal Confidentiality of Alcohol and Drug Abuse Patient Records regulations: The Federal rules restrict any use of the information to criminally investigate or prosecute any alcohol or drug abuse patient.[facility] CenterIn the event this information is protected by the Federal Confidentiality of Alcohol and Drug Abuse Patient Records regulations: The Federal rules restrict any use of the information to criminally investigate or prosecute any alcohol or drug abuse patient.[facility] CenterIn the event this information is protected by the Federal Confidentiality of Alcohol and Drug Abuse Patient Records regulations: The Federal rules restrict any use of the information to criminally investigate or prosecute any alcohol or drug abuse patient.[facility] CenterIn the event this information is protected by the Federal Confidentiality of Alcohol and Drug Abuse Patient Records regulations: The Federal rules restrict any use of the information to criminally investigate or prosecute any alcohol or drug abuse patient.[facility] CenterIn the event this information is protected by the Federal Confidentiality of Alcohol and Drug Abuse Patient Records regulations: The Federal rules restrict any use of the information to criminally investigate or prosecute any alcohol or drug abuse patient.[facility] CenterIn the event this information is protected by the Federal Confidentiality of Alcohol and Drug Abuse Patient Records regulations: The Federal rules restrict any use of the information to criminally investigate or prosecute any alcohol or drug abuse patient.[facility] CenterIn the event this information is protected by the Federal Confidentiality of Alcohol and Drug Abuse Patient Records regulations: The Federal rules restrict any use of the information to criminally investigate or prosecute any alcohol or drug abuse patient.[facility] CenterIn the event this information is protected by the Federal Confidentiality of Alcohol and Drug Abuse Patient Records regulations: The Federal rules restrict any use of the information to criminally investigate or prosecute any alcohol or drug abuse patient.[facility] CenterIn the event this information is protected by the Federal Confidentiality of Alcohol and Drug Abuse Patient Records regulations: The Federal rules restrict any use of the information to criminally investigate or prosecute any alcohol or drug abuse patient.[facility] CenterIn the event this information is protected by the Federal Confidentiality of Alcohol and Drug Abuse Patient Records regulations: The Federal rules restrict any use of the information to criminally investigate or prosecute any alcohol or drug abuse patient.[facility] CenterIn the event this information is protected by the Federal Confidentiality of Alcohol and Drug Abuse Patient Records regulations: The Federal rules restrict any use of the information to criminally investigate or prosecute any alcohol or drug abuse patient.[facility] CenterIn the event this information is protected by the Federal Confidentiality of Alcohol and Drug Abuse Patient Records regulations: The Federal rules restrict any use of the information to criminally investigate or prosecute any alcohol or drug abuse patient.[facility] CenterIn the event this information is protected by the Federal Confidentiality of Alcohol and Drug Abuse Patient Records regulations: The Federal rules restrict any use of the information to criminally investigate or prosecute any alcohol or drug abuse patient.[facility] CenterIn the event this information is protected by the Federal Confidentiality of Alcohol and Drug Abuse Patient Records regulations: The Federal rules restrict any use of the information to criminally investigate or prosecute any alcohol or drug abuse patient.[facility] CenterIn the event this information is protected by the Federal Confidentiality of Alcohol and Drug Abuse Patient Records regulations: The Federal rules restrict any use of the information to criminally investigate or prosecute any alcohol or drug abuse patient.[facility] CenterIn the event this information is protected by the Federal Confidentiality of Alcohol and Drug Abuse Patient Records regulations: The Federal rules restrict any use of the information to criminally investigate or prosecute any alcohol or drug abuse patient.[facility] CenterIn the event this information is protected by the Federal Confidentiality of Alcohol and Drug Abuse Patient Records regulations: The Federal rules restrict any use of the information to criminally investigate or prosecute any alcohol or drug abuse patient.[facility] CenterIn the event this information is protected by the Federal Confidentiality of Alcohol and Drug Abuse Patient Records regulations: The Federal rules restrict any use of the information to criminally investigate or prosecute any alcohol or drug abuse patient.[facility] CenterIn the event this information is protected by the Federal Confidentiality of Alcohol and Drug Abuse Patient Records regulations: The Federal rules restrict any use of the information to criminally investigate or prosecute any alcohol or drug abuse patient.[facility] CenterIn the event this information is protected by the Federal Confidentiality of Alcohol and Drug Abuse Patient Records regulations: The Federal rules restrict any use of the information to criminally investigate or prosecute any alcohol or drug abuse patient.[facility] CenterIn the event this information is protected by the Federal Confidentiality of Alcohol and Drug Abuse Patient Records regulations: The Federal rules restrict any use of the information to criminally investigate or prosecute any alcohol or drug abuse patient.[facility] CenterIn the event this information is protected by the Federal Confidentiality of Alcohol and Drug Abuse Patient Records regulations: The Federal rules restrict any use of the information to criminally investigate or prosecute any alcohol or drug abuse patient.[facility] CenterIn the event this information is protected by the Federal Confidentiality of Alcohol and Drug Abuse Patient Records regulations: The Federal rules restrict any use of the information to criminally investigate or prosecute any alcohol or drug abuse patient.[facility] FOR RECORDS PERTAINING TO PATIENTS [...] BE BASED ON THE PRIMARY CLINICAL RECORDS. [facility] [employer] [facility]. provides no warranty or guarantee of the accuracy or completeness of information in this document.
--- OUTSIDE RECORDS SUMMARY | 2025-10-06 08:39 | XMS_ITS | Clinical Summary ---
Author Organization [facility] Address [address] [place], [place] [id number] Care Team Providers Care Honing Job Setter Name Role Phone Romie Rdz DO Primary Care Provider [phone] Allergies Active AllergyReactionsCriticalityNoted DateCommentsTopiramateMental Status Utvmaz7805/09/2018 Medications MedicationSigDispense QuantityRefillsLast FilledStart DateEnd DateStatus Ascorbic Acid 1,000 mg tablet Take 1,000 mg by mouth once daily.Active ONDANSETRON HCL (ZOFRAN ORAL) Take 4 mg by mouth as needed.Active CYANOCOBALAMIN, VITAMIN B-12, (VITAMIN B-12 ORAL) Take by mouth.Active scopolamine (TRANSDERM-SCOP) 1.5 mg (1 mg over 3 days) Apply 1 Patch as directed every 72 hours. APPLY 1 DISC BEHIND THE EAR AT LEAST 4 HOURS PRIOR TO EXPOSURE AND EVERY 3 DAYS NEEDED. 12 Patch 11005/31/2017Active rosuvastatin (CRESTOR) 5 mg tablet Take 1 tablet by mouth every afternoon.07/06/2023ctive magnesium hydroxide (MAGNESIA ORAL) Take 400 mg by mouth once daily.Active rimegepant (NURTEC ODT) 75 mg disintegrating tablet Take 1 dissolvable tablet by mouth at migraine onset. Take only 1 tablet per 24 hours. 8 tablet 3:26 PM EST10/04/2024ctive propranolol ER (INDERAL LA) 80 mg 24 hr capsule Take 1 capsule by mouth once daily. 90 capsule ctive atogepant (QULIPTA) 60 mg tablet Take 1 tablet by mouth once daily. 90 tablet 12:41 PM EST/ctive Active Problems ProblemNoted DateDiagnosed DateChronic migraine without aura, intractable, without status zuujxevkimq81/26/2024Status zsqnfvyexgc75/26/2024ervicalgia 07/24/2022Migraine without aura and without status migrainosus, not intractable 09/23/2020Migraine with aura and without status migrainosus, not intractable 09/23/2020Intractable chronic migraine without aura and with status migrainosus 09/23/2020Intractable chronic migraine without aura and without status znmtawedchz56/26/2020Chronic musculoskeletal pain07/03/2016Chronic daily /11/2015Chronic migraine without aura, with intractable migraine, so stated, with status icmrhqxuapy60/11/2015Medication overuse weeurzza51/11/2015 Chronic neck pain10/11/2015Bilateral occipital qnmuqlihj82/11/2015 Encounters DateTypeDepartmentCare DoflZwcwvdniylu54/03/0799Gybczh62/11/2025Telephone [facility] Home Delivery [address] [place] [address] Jen De Leon RN Insurance Authorization; RIJLIGS6707/07/2025 Get Medical Advice Neurology [address] [place] [address] Simona Martinez APRN.GLOST PLACER Need prior authorizationfrom Last 3 Months Family History Medical HistoryRelationCommentsMigraine [Other]BrotherMigraine [Other]Daughter Migraine [Other]MotherMigraine [Other]SisterRelationStatusCommentsBrother DaughterMotherSister Social History Tobacco UseTypesPacks/DayYears UsedDateSmoking Tobacco: NeverSmokeless Tobacco: Never Tobacco Cessation:Counseling Given: Not Answered Alcohol UseStandard Drinks/WeekCommentsYes0 (1 standard drink = 0.6 oz pure alcohol)InfrequentPHQ-2AnswerDate RecordedPHQ-2 nkkrb00412/04/2024rea Deprivation IndexAnswerDate RecordedNational Score (1-100), lower number is lower risk63 03/29/2024State Score (1-10), lower number is lower pylj677ata from: https://www.neighborhoodatlas.[facility].edu/. Last address used for [address] [facility] [id number] and Gender InformationValueDate RecordedSex Assigned at BirthNot on fileLegal SexFemale 07/02/2015 9:34 AM EDTGender IdentityNot on fileSexual OrientationNot on file Last Filed Vital Signs Vital SignReadingTime TakenCommentsBlood Mceehpyf248/8206 3:53 PM EDT Uvtnv323010/04/2024 4:00 PM NILThoggyphasl51.2 ??C (97.1 ??F)07/28/2022 7:49 AM EDTRespiratory Sprw632305/31/2017 3:35 PM EDTOxygen Iyuteodnlo184%07/28/2022 7:49 AM EDTInhaled Oxygen Concentration--Palxlu39 kg (150 lb)04/04/2025 3:53 PM EDT Bkgjzu266.2 cm (5' 7 )04/04/2025 3:53 PM EDTBody Mass Index23.4906 3:53 PM EDT Plan of Treatment DateTypeDepartmentCare Team (Latest Contact Info)Tncriwdqsfy07/10/2025 1:00 PM ESTOffice Visit Neurology [address] [place] [address] Simona Martinez, SAMPLE TESTER GRINDER.GLOST PLACER [address] [place] [address] FOLLOW UP 6 MONTHSHealth MaintenanceDue DateLast DoneCommentsAnxiety Screening 1985Depression Hqauymgud24/29/1985HIV Lafxpokhv84/29/1985Hepatitis C Reuvvavqh78/29/1985DTaP,Tdap,Td Vaccine (1 - Tdap)1986Hepatitis B Vaccine (1 of 3 - 19+ 3-dose series)1986Cervical Cancer Qzbwodypg26/29/1988 Mammogram Sulphmjki47/29/2007CT Kikvfkesaepp18/29/2012Cologuard (FIT-DNA) 05/29/20122523Bpdralhahfn61/29/2012Colorectal Cancer Uoaxmeeph00/29/2012Diabetes Puskpyfvf01/29/2012Fecal Occult Blood2012Lipid Hopzzajey38/29/2012 Bqhasxnluyhbb06/29/2012Pneumococcal Vaccine: 50+ (1 of 1 - PCV)2017 Shingrix Vaccine (1 of 2)2017Covid-19 Vaccine (1 - 2024- season) 2025Influenza Vaccine (#1)2025 Insurance Care Teams Team MemberRelationshipSpecialtyStart DateEnd Date Romie Rdz DO [address] [place] [id number] PCP - GeneralFamily Medicine07/02/15
--- OUTSIDE RECORDS SUMMARY | 2025-10-06 08:39 | XMS_ITS | Clinical Summary ---
Author Organization [facility] Address [address] [place] [address] Care Team Providers Care Journalism Instructor Name Role Phone Unavailable Primary Care Provider Unavailabl e Allergies Active AllergyReactionsCriticalityNoted SicnRzboaxulFlvcyzWaxffqk17/21/2024 Other Reaction(s): Kidney disease Other Reaction(s): kidney Dz Tgckuctpgzrozodw52/21/2024 Other Reaction(s): kidney Dz Sulfamethoxazole-MkcxvbzuxlcgNpmdnhb90/28/2020 Other Reaction(s): Kidney disease ZsjguyjmjzSsylvmh48/09/9331Gupunypydbhx07/21/2024 Other Reaction(s): kidney Dz Medications MedicationSigDispense QuantityRefillsLast FilledStart DateEnd DateStatus ascorbic acid (Vitamin C) 500 mg/mL oral liquid Daily03/22/2024ctive ondansetron (Zofran) 1 MG split tablet Take 4 mg by mouthActive propranolol (Inderal) 80 MG tablet Daily12/16/2023ctive rosuvastatin (Crestor) 5 MG tablet .TOTSVGO0406/13/2024ctive Atogepant (Qulipta) 10 MG tablet Take by mouthActive Ciclopirox 1 % shampoo Indications:Other seborrheic dermatitisLather on wet hair, leave on 5 min, rinse 2-3 x week, 30 day supply 120 mL ctive ciclopirox (Loprox) 0.77 % cream Indications:Other seborrheic dermatitisApply thin layer to affected area once a day, 30 day supply 30 g ctive fluocinonide (Lidex) 0.05 % external solution Indications:Other seborrheic dermatitisAPPLY TO AFFECTED AREAS ON THE SCALP, UP TO TWICE A DAY WHEN FLARED 60 mL 5Active Active Problems No known active problems Encounters DateTypeDepartmentCare FlknHxnymttvtxo07/06/2025Refill [facility] [address] [place] [address] Nidhi Hawkins PA Other seborrheic dermatitisfrom Last 3 Months Social History Tobacco UseTypesPacks/DayYears UsedDateSmoking Tobacco: NeverSmokeless Tobacco: Never Tobacco Cessation:Counseling Given: Not Answered CommentsUnknownSex and Gender InformationValueDate RecordedSex Assigned at BirthNot on fileLegal FjgVhihib53/15/2023 7:25 PM EDTGender IdentityNot on fileSexual OrientationNot on file Last Filed Vital Signs Vital SignReadingTime TakenCommentsBlood Rmedtgxv495/8607 12:00 PM EDT Pulse--Temperature--Respiratory Rate--Oxygen Saturation--Inhaled Oxygen Concentration--Rcyecd44.6 kg (160 lb)05/16/2018 12:00 PM ZAIHoicwe040.1 cm (5' 5 )05/16/2018 12:00 PM EDTBody Mass Index26.63005/16/2018 12:00 PM EDT Plan of Treatment DateTypeDepartmentCare Team (Latest Contact Info)Onfkeoebdtb52/08/2026 3:20 PM ESTOffice Visit [facility] [address] [place] [address] Nidhi Hawkins PA [address] [place] [address] Insurance * Guarantor: Eduar Jones TypeRelation to PatientDate of BirthPhoneBilling AddressPersonal/KexgapEflo[address] [address]
[2025-10-06 09:11] LABS: Hematocrit 39.3 % (36.0-48.0); Hemoglobin 13.3 g/dL (12.0-16.0); Mean Corpuscular HGB Conc 33.8 g/dL (29.9-35.2); Mean Corpuscular Hemoglobin 30.5 pg (26.7-34.0); Mean Corpuscular Volume 90.1 fL (81.0-99.0); Platelet Count 274 10^3/uL (150-450); Red Blood Count 4.36 10^6/uL (4.20-5.40); White Blood Count 6.8 10^3/uL (4.0-11.0)
[2025-10-06 09:25] LABS: Protein Creatinine Ratio Urine 0.11; Total Protein Urine Random 17.9 mg/dL (<=11.9)
[2025-10-06 09:37] LABS: Albumin Level 3.7 g/dL (3.4-5.0); Anion Gap 10.5; Blood Urea Nitrogen 15.0 mg/dL (7.0-18.0); Calcium 8.8 mg/dL (8.5-10.1); Carbon Dioxide 31.1 mmol/L (21.0-32.0); Chloride 107 mmol/L (98-107); Estimated GFR (African America >60 (>=60 mL/min/1.73m^2); Estimated GFR (Non-African Ame 50 (>=60 mL/min/1.73m^2); Glucose 99 mg/dL (74-106); Magnesium 1.9 mg/dL (1.8-2.4); Potassium 4.6 mmol/L (3.5-5.1); Sodium 144 mmol/L (136-145); Uric Acid 3.8 mg/dL (2.6-6.0)
[2025-10-06 09:52] LABS: Glucose Urine UA NEGATIVE (NEGATIVE)
[2025-10-06 09:59] LABS: Cast Seen? NONE SEEN #/LPF (NONE SEEN); Crystals Seen? None Seen #/HPF (None Seen)
== END 2025-10-06 08:35 | disposition home or self-care (01) ==
LOC: LAB 08:35
PROVIDERS: PCP Family Medicine; Visit Provider Internal Medicine
DX: N25.81 Secondary hyperparathyroidism of renal origin (principal); E83.42 Hypomagnesemia; N18.30 Chronic kidney disease, stage 3 unspecified; I12.9 Hypertensive chronic kidney disease with stage 1 through stage 4 chronic kidney disease, or unspecified chronic kidney disease
CPT/HCPCS: 36415; 80069; 81001; 82306; 82570; 83735; 83970; 84156; 84550; 85027